=== PATIENT | female | born 1960 | race Two or more races ===

== ENCOUNTER 2023-06-10 09:50 | Emergency (ER) | payer OTHER, SELFPAY ==
[2023-06-10 10:04] VITALS: BP 96/50; PULSE 64; RESP 16; TEMP 37; O2SAT 94; BMI 19.1
--- NOTE | 2023-06-10 10:40 | XR_ITS ---
The [address] [address] Patient Name: HONEY MONTES MRN: [id number] date: 1960 Sex: F Assigned Patient Location: ER Current Patient Location: ER Accession/Order Number: [id number] Exam Date: 06/10/2023 10:50 Report Date: 06/10/2023 11:33 At the request of: SADE ESCOBAR Procedure: XR acute abdomen series EXAM: XR acute abdomen series HISTORY: Abdominal pain. COMPARISON: 04/18/2020. TECHNIQUE: Frontal view of the chest. AP supine and upright views of the abdomen. FINDINGS: Borderline heart size. Diffuse interstitial opacities consistent with pulmonary congestion. Question slight hazy early alveolar opacities as well. No pleural effusion or pneumothorax. No acute bony process. Mild S-shaped thoracolumbar curvature. Nonobstructing bowel gas pattern with mild air fluid distention of the stomach and large bowel suggesting possible mild ileus pattern. No free intraperitoneal air. No portal venous gas. Prior postoperative change of the abdomen. No definite renal stones. XR/XR acute abdomen series IMPRESSION: Cardiomegaly with congestion. Question possible slight early hazy alveolar opacities such as early alveolar edema. No drainable effusions. Question mild ileus pattern of the GI tract but no obstruction or free air. Electronically authenticated by: SAADIA PEGUERO Date: 06/10/2023 11:33
--- NOTE | 2023-06-10 10:40 | ED.ABDPAIN1 ---
HPI - Abdominal Pain General Chief Complaint: Abdominal Pain Stated Complaint: DEHYDRATION/CONFUSION/FELL Time Seen by Provider: 06/10/23 10:39 Source: patient and family Mode of arrival: Wheelchair Limitations: no limitations History of Present Illness HPI narrative: This document has been composed with a new electronic medical record and dragging voice recognition system. This document may not fully inaccurately reflect the entirety of the patient encounter.this patient's here with complaint of abdominal pain. She was seen in a different institution on and was told that she should be admitted. They're waiting for a bed for her to be admitted and she left apparently AGAINST MEDICAL ADVICE. We were waiting get that information. This patient has a very complex medical history she's not exactly sure what type of tumor or cancer she was treated for a believes that it was in her bowel. The surgery was done at the [facility] several years ago. Since , she's been noted take fluids and she's not been vomiting. She does not have a fever. She also noted that she is on tamoxifen for breast cancer but they did not think that the breast-cancer cause the bowels cancer. She is not had any new medications or usage of antibiotics. She was in [place] two days ago she's never been to this institution. She has never been to the [facility] local office. She's not been up to [facility] for over two years for follow-up. She did have lab and CT testing at the other hospital that was noted on the patient's chart that she provided. Related Data Home Medications Medication Instructions Recorded Confirmed alprazolam 1 mg tablet 1 mg PO TID 06/10/23 06/10/23 ciprofloxacin 500 mg PO BID 06/10/23 06/10/23 clopidogrel 75 mg tablet 75 mg PO DAILY 06/10/23 06/10/23 fludrocortisone 0.1 mg tablet 0.1 mg PO DAILY 06/10/23 06/10/23 isosorbide mononitrate 30 mg 30 mg PO DAILY 06/10/23 06/10/23 tablet,extended release 24 hr midodrine 10 mg tablet 10 mg PO TID 06/10/23 06/10/23 morphine 15 mg tablet,extended 15 mg PO Q12H 06/10/23 06/10/23 release nitroglycerin 0.4 mg sublingual 0.4 mg sublingual Q5M PRN chest 06/10/23 06/10/23 tablet pain pantoprazole 40 mg tablet,delayed 40 mg PO DAILY 06/10/23 06/10/23 release potassium chloride 10 mEq 10 meq PO BID 06/10/23 06/10/23 capsule,extended release tamoxifen 20 mg tablet 20 mg PO DAILY 06/10/23 06/10/23 zolpidem 5 mg tablet 5 mg PO DAILY 06/10/23 06/10/23 Allergies Allergy/AdvReac Type Severity Reaction Status Date / Time No Known Drug Allergies Allergy Verified 06/10/23 10:09 [facility] Social History Smoking status: Current every day smoker Exam Narrative Exam Narrative: very pleasant not confused oriented ?3.she is here with her daughter who is also a good historian. She does not appear ill. Blood pressure is noted. Her skin is warm and dry she's not jaundiced she's not clammy or diaphoretic. Cognition is excellent. Chest her lungs are clear with no rales or rhonchi. Heart sounds are normal no S3-S4 or murmur. 12-lead EKG shows sinus rhythm with left anterior fascicular block. Her abdomen is benign with good bowel sounds no guarding rebound rigidity or peritoneal findings. Roblero sign is negative. Negative Uriel sign. Extremities have good peripheral perfusion. No edema/tenderness or evidence of deep vein thrombosis. Neurological cranial nerves are normal she has no focal motor scale deficits or sensory deficits by history. Constitutional Vital Signs, click to edit/add: Last Vital Signs Temp 98.6 F 06/10/23 10:04 Pulse 64 06/10/23 10:04 Resp 16 06/10/23 10:04 BP 96/50 06/10/23 10:04 Pulse Ox 94 L 06/10/23 10:04 O2 Del Method Room Air 06/10/23 10:04 Course Vital Signs Vital signs: Vital Signs Temperature 98.6 F 06/10/23 10:04 Pulse Rate 64 06/10/23 10:04 Respiratory Rate 16 06/10/23 10:04 Blood Pressure 96/50 06/10/23 10:04 Pulse Oximetry 94 L 06/10/23 10:04 Oxygen Delivery Method Room Air 06/10/23 10:04 Temperature 98.6 F 06/10/23 10:04 Pulse Rate 64 06/10/23 10:04 Respiratory Rate 16 06/10/23 10:04 Blood Pressure 96/50 06/10/23 10:04 Pulse Oximetry 94 L 06/10/23 10:04 Oxygen Delivery Method Room Air 06/10/23 10:04 MDM - Abdominal Pain MDM Narrative Medical decision making narrative: patient's CBC is baseline from her lab several days ago the other institution. Her potassium is still low at 3.1. She has slight elevation of her creatinine B line is normal. Lipase is normal. Abdominal series x-ray does not show any evidence of obstructive pattern. This patient has a complex medical history we have little access to her records. She's been seen and had surgery at [facility] I strongly advised follow-up at the local facility here so they can evaluate her and determine need for further imaging to determine if there is any progression of her previously scrod described per medical process. Both her and her daughter are happy to understand that there is a local facility. At this stage of her prescription for additional potassium. Should she develop fever or worsening symptoms she should return do not see an emergency medical condition at this time but she'll need to be followed very closely because of the situation as noted above Lab Data Labs: Lab Results 06/10/23 06/10/23 Range/Units 11:05 11:08 WBC 12.5 H (4.0-11.0) 10^3/uL RBC 4.01 L (4.20-5.40) 10^6/uL Hgb 12.0 (12.0-16.0) g/dL Hct 37.0 (36.0-48.0) % MCV 92.3 (81.0-99.0) fL MCH 29.9 (26.7-34.0) pg MCHC 32.4 (29.9-35.2) g/dL RDW 17.1 H (11.0-15.0) % Plt Count 310 (150-450) 10^3/uL MPV 10.2 (9.5-13.5) fL Neut % (Auto) 72.1 (43.0-75.0) % Lymph % (Auto) 17.3 L (20.5-60.0) % [place] % (Auto) 8.2 (1.7-12.0) % Eos % (Auto) 1.0 (0.9-7.0) % Baso % (Auto) 0.4 (0.2-2.0) % Neut # (Auto) 9.0 H (1.4-6.5) 10^3/uL Lymph # (Auto) 2.2 (1.2-3.8) 10^3/uL [place] # (Auto) 1.0 H (0.3-0.8) 10^3/uL Eos # (Auto) 0.1 (0.0-0.7) 10^3/uL Baso # (Auto) 0.1 (0.0-0.1) 10^3/uL Abs Immat Gran (auto) 0.12 H (0.00-0.03) 10^3/uL Imm/Tot Granulo (auto) 1.0 H (0.0-0.5) % Sodium 138 (136-145) mmol/L Potassium 3.1 L (3.5-5.1) mmol/L Chloride 102 (98-107) mmol/L Carbon Dioxide 26.4 (21.0-32.0) mmol/L Anion Gap 12.7 BUN 8.0 (7.0-18.0) mg/dL Creatinine 1.22 H (0.55-1.02) mg/dL Est GFR ( Amer) 54 L (>=60) Est GFR (Non-Af Amer) 45 L (>=60) BUN/Creatinine Ratio 6.6 Glucose 55 L (74-106) mg/dL Lactate 1.7 (0.4-2.0) mmol/L Calcium 9.0 (8.5-10.1) mg/dL Total Bilirubin 0.6 (0.2-1.0) mg/dL AST 36 (15-37) U/L ALT 14 (14-59) U/L Alkaline Phosphatase 98 (46-116) U/L NT-Pro-B Natriuret Pep 780.0 (<=900.0) pg/mL Total Protein 7.2 (6.4-8.2) g/dL Albumin 2.9 L (3.4-5.0) g/dL Globulin 4.3 g/dL Albumin/Globulin Ratio 0.7 Lipase 37.0 L (73.0-393.0) U/L Discharge Plan Discharge Chief Complaint: Abdominal Pain Clinical Impression: Chronic hypokalemia Patient Disposition: Home, Self-Care Time of Disposition Decision: 12:45 Prescriptions / Home Meds: No Action clopidogrel 75 mg tablet 75 mg PO DAILY fludrocortisone 0.1 mg tablet 0.1 mg PO DAILY isosorbide mononitrate 30 mg tablet extended release 24 hr 30 mg PO DAILY midodrine 10 mg tablet 10 mg PO TID morphine 15 mg tablet extended release 15 mg PO Q12H nitroglycerin 0.4 mg tablet, sublingual 0.4 mg sublingual Q5M PRN (Reason: chest pain) pantoprazole 40 mg tablet,delayed release (DR/EC) 40 mg PO DAILY potassium chloride 10 mEq capsule, extended release 10 meq PO BID zolpidem 5 mg tablet 5 mg PO DAILY alprazolam 1 mg tablet 1 mg PO TID tamoxifen 20 mg tablet 20 mg PO DAILY ciprofloxacin 500 mg PO BID Additional Instructions: finish antibiotic, start potassium supplements, call the local [facility] office Monday to continue your evaluation Stand Alone Forms: Portal Instructions Referrals: IAM OQUENDO [Primary Care Provider] - 1 week
[2023-06-10 11:18] LABS: Basophils Absolute Auto 0.1 10^3/uL (0.0-0.1); Basophils Percent Auto 0.4 % (0.2-2.0); Eosinophils Absolute Auto 0.1 10^3/uL (0.0-0.7); Immature Granulocytes Abs Auto 0.12 10^3/uL (0.00-0.03); Lymphocytes Absolute Auto 2.2 10^3/uL (1.2-3.8); Lymphocytes Percent Auto 17.3 % (20.5-60.0); Mean Corpuscular HGB Conc 32.4 g/dL (29.9-35.2); Mean Corpuscular Hemoglobin 29.9 pg (26.7-34.0); Mean Corpuscular Volume 92.3 fL (81.0-99.0); Mean Platelet Volume 10.2 fL (9.5-13.5); Monocytes Percent Auto 8.2 % (1.7-12.0); Neutrophils Percent Auto 72.1 % (43.0-75.0); Platelet Count 310 10^3/uL (150-450); Red Blood Count 4.01 10^6/uL (4.20-5.40); Red Cell Distribution Width 17.1 % (11.0-15.0); White Blood Count 12.5 10^3/uL (4.0-11.0)
[2023-06-10 11:30] LABS: Alanine Aminotransferase 14 U/L (14-59); Albumin Globulin Ratio 0.7; Albumin Level 2.9 g/dL (3.4-5.0); Alkaline Phosphatase 98 U/L (46-116); Anion Gap 12.7; Aspartate Amino Transferase 36 U/L (15-37); BUN Creatinine Ratio 6.6; Bilirubin Total 0.6 mg/dL (0.2-1.0); Carbon Dioxide 26.4 mmol/L (21.0-32.0); Chloride 102 mmol/L (98-107); Estimated GFR (African America 54 (>=60); Estimated GFR (Non-African Ame 45 (>=60); Globulin 4.3 g/dL; Glucose 55 mg/dL (74-106); Potassium 3.1 mmol/L (3.5-5.1); Sodium 138 mmol/L (136-145); Total Protein 7.2 g/dL (6.4-8.2)
[2023-06-10 11:32] LABS: Lactate/Lactic Acid 1.7 mmol/L (0.4-2.0)
[2023-06-10] MEDS: 0.9 % SODIUM CHLORIDE 1,000 ML 999 ML IV (11:38)
[2023-06-10] MEDS: POTASSIUM CHLORIDE 10 MEQ ER TABLET 20 MEQ PO (12:26)
[2023-06-10 13:19] VITALS: O2SAT 97
[2023-06-10 13:21] VITALS: BP 98/50; PULSE 68; RESP 16; O2SAT 97
== END 2023-06-10 13:26 | disposition home or self-care (01) ==
PROVIDERS: Emergency Provider Emergency Medicine Emergency Medical Services; PCP Family Medicine
DX: E87.6 Hypokalemia (principal); Z85.3 Personal history of malignant neoplasm of breast; Z85.00 Personal history of malignant neoplasm of unspecified digestive organ; Z79.899 Other long term (current) drug therapy; F17.210 Nicotine dependence, cigarettes, uncomplicated
CPT/HCPCS: 36415; 74022; 80053; 83605; 83690; 83880; 85025; 99284

== ENCOUNTER 2023-07-02 10:30 | Observation (INO) | payer OTHER, SELFPAY ==
[2023-07-02] VITALS (38 sets, daily range): BP systolic 110–154; BP diastolic 64–93; PULSE 49–75; RESP 9–27; TEMP 36.7–36.8; O2SAT 84–98; BMI 19.1
--- NOTE | 2023-07-02 11:01 | CT_ITS ---
[address] [address] Patient Name: HONEY MONTES MRN: [id number] date: 1960 Sex: F Assigned Patient Location: ER Current Patient Location: Accession/Order Number: [id number] Exam Date: 07/02/2023 11:30 Report Date: 07/02/2023 12:05 At the request of: ERASMO JEFFERSON Procedure: CT cervical spine wo con EXAM: CT cervical spine wo con HISTORY: fall COMPARISON: None. TECHNIQUE: CT Cervical spine without IV contrast. Coronal and sagittal reformations were performed. Dose reduction techniques were achieved by using automated exposure control and/or adjustment of mA and/or kV according to patient size and/or use of iterative reconstruction technique. FINDINGS: Osseous: The vertebral body heights are maintained. Incomplete fusion of the posterior arch of C1. No fracture. Soft tissues: No focal fluid collection. Atherosclerotic vascular calcification of the carotid arteries. Disc levels: C2-C3: No spinal canal stenosis. Right neural foramen is patent. Mild left facet arthrosis. Mild left foraminal stenosis. C3-C4: Moderate left facet arthrosis. Mild left foraminal stenosis. C4-C5: Small broad-based posterior disc bulge/osteophyte complex. Disc height loss. Mild spinal canal stenosis. Moderate bilateral foraminal stenosis. C5-C6: Small broad-based posterior disc bulge/osteophyte complex. Disc height loss. Mild spinal canal stenosis. Mild left foraminal stenosis. C6-C7: Disc height loss, broad-based posterior disc bulge. Mild spinal canal stenosis. Moderate right foraminal stenosis. C7-T1: No disc protrusion, spinal canal stenosis, or neural foraminal stenosis. Mild left facet arthrosis. CT/CT cervical spine wo con IMPRESSION: 1. No cervical spine fracture or subluxation. 2. Multilevel degenerative changes of the cervical spine as above Electronically authenticated by: MENG MAGALLON Date: 07/02/2023 12:05
--- NOTE | 2023-07-02 11:01 | CT_ITS ---
The [address] [address] Patient Name: HONEY MONTES MRN: [id number] date: 1960 Sex: F Assigned Patient Location: ER Current Patient Location: ER Accession/Order Number: [id number] Exam Date: 07/02/2023 11:30 Report Date: 07/02/2023 12:01 At the request of: ERASMO JEFFERSON Procedure: CT stroke head/brain wo con EXAM: CT stroke head/brain wo con HISTORY: fall, altered mentation COMPARISON: None. TECHNIQUE: Noncontrast CT was obtained through the head. Dose reduction techniques were achieved by using automated exposure control and/or adjustment of mA and/or kV according to patient size and/or use of iterative reconstruction technique. FINDINGS: The ventricles, sulci, and remaining CSF containing spaces maintain age-appropriate volume and symmetry. No herniation or hydrocephalus. The webb matter/white matter differentiation is maintained throughout. No CT evidence of contemporary infarction. No acute intracranial hemorrhage or parenchymal mass. The calvarium and skull base are intact. The pneumatized portions of the skull are clear. CT/CT stroke head/brain wo con IMPRESSION: No acute intracranial abnormality. MRI may be helpful in further evaluation. Electronically authenticated by: MENG MAGALLON Date: 07/02/2023 12:01
--- NOTE | 2023-07-02 11:02 | ECG_ITS ---
The [facility] Test Date: 2023-07-02 Pat Name: HONEY MONTES Department: Room: - Gender: Female [employer]: : 1960 Requested By: Andrea Ardon Order Number: [id number] Reading MD: JOSHUA FLORENCE Measurements Intervals [place] Rate: 66 P: 63 [place]: 166 QRS: -56 QRSD: 90 T: 48 QT: 446 QTc: 459 Interpretive Statements 1100 Sinus rhythm 2630 Left anterior fascicular block 8003 Consistent with pulmonary disease 8304 Long QTc interval 9150 abnormal ECG No previous ECG available for comparison Electronically Signed On 07-03-2023 13:09:41 EDT by JOSHUA FLORENCE
--- NOTE | 2023-07-02 11:02 | XR_ITS ---
The [address] [address] Patient Name: HONEY MONTES MRN: [id number] date: 1960 Sex: F Assigned Patient Location: ER Current Patient Location: ER Accession/Order Number: [id number] Exam Date: 07/02/2023 11:30 Report Date: 07/02/2023 12:10 At the request of: ERASMO JEFFERSON Procedure: XR chest 1V PROCEDURE: XR chest 1V DATE: 07/02/2023 10:30 AM CDT COMPARISONS: None. CLINICAL INDICATION: 63 years Female fall, altered mentation FINDINGS: The cardiomediastinal silhouette and pulmonary vasculature are within normal limits. The lungs are clear. There is no evidence of pleural effusion or pneumothorax. XR/XR chest 1V IMPRESSION: Chest radiograph is within normal limits. Electronically authenticated by: KHUSHBOO ROBERTSON Date: 07/02/2023 12:10
[2023-07-02 11:31] LABS: Basophils Percent Auto 0.3 % (0.2-2.0); Eosinophils Absolute Auto 0.3 10^3/uL (0.0-0.7); Eosinophils Percent Auto 2.1 % (0.9-7.0); Hematocrit 37.1 % (36.0-48.0); Hemoglobin 11.6 g/dL (12.0-16.0); Immature Granulocytes Abs Auto 0.05 10^3/uL (0.00-0.03); Immature Granulocytes Pct Auto 0.4 % (0.0-0.5); Lymphocytes Absolute Auto 2.9 10^3/uL (1.2-3.8); Mean Corpuscular HGB Conc 31.3 g/dL (29.9-35.2); Mean Corpuscular Hemoglobin 29.7 pg (26.7-34.0); Mean Corpuscular Volume 95.1 fL (81.0-99.0); Mean Platelet Volume 10.1 fL (9.5-13.5); Monocytes Absolute Auto 0.8 10^3/uL (0.3-0.8); Monocytes Percent Auto 5.9 % (1.7-12.0); Neutrophils Absolute Auto 9.2 10^3/uL (1.4-6.5); Neutrophils Percent Auto 69.3 % (43.0-75.0); Platelet Count 285 10^3/uL (150-450); Red Cell Distribution Width 16.7 % (11.0-15.0); White Blood Count 13.3 10^3/uL (4.0-11.0)
--- NOTE | 2023-07-02 11:34 | ED_ITS ---
HPI - General Adult General Chief complaint: Weakness Stated complaint: SHAKY/WEAK/FALLEN 2X/CONFUSION Time Seen by Provider: 07/02/23 10:42 Source: family Mode of arrival: Wheelchair Limitations: altered mental status History of Present Illness HPI narrative: Patient was staying in the daughter's camper last night and got up to use the bathroom. She got dizzy and fell in the hallway between the kitchen and the b athroom. Unclear if she hit her head but apparently did not lose consciousness. The daughter brought her home and the patient apparently fell again - once again becoming dizzy as she was attempting to walk to the bathroom. Now she is confused - giving incorrect and inappropriate responses and having difficulty performing basic tasks - example putting a cigarette to her lips. She takes aspirin and Plavix - she has afib and CAD with multiple cardiac stents. She has no complaints. She sustained an injury - skin tear - to the right upper extremity. She denied any other injuries. Related Data Home Medications Medication Instructions Recorded Confirmed alprazolam 1 mg tablet 1 mg PO TID PRN sleep 06/10/23 07/02/23 ciprofloxacin 500 mg PO BID 06/10/23 06/10/23 clopidogrel 75 mg tablet 75 mg PO DAILY 06/10/23 07/02/23 fludrocortisone 0.1 mg tablet 0.1 mg PO DAILY 06/10/23 06/10/23 isosorbide mononitrate 30 mg 30 mg PO DAILY 06/10/23 07/02/23 tablet,extended release 24 hr midodrine 10 mg tablet 10 mg PO TID 06/10/23 07/02/23 morphine 15 mg tablet,extended 15 mg PO Q12H 06/10/23 06/10/23 release nitroglycerin 0.4 mg sublingual 0.4 mg sublingual Q5M PRN chest 06/10/23 06/10/23 tablet pain pantoprazole 40 mg tablet,delayed 40 mg PO DAILY 06/10/23 07/02/23 release potassium chloride 10 mEq 10 meq PO BID 06/10/23 07/02/23 capsule,extended release tamoxifen 20 mg tablet 20 mg PO DAILY 06/10/23 07/02/23 zolpidem 5 mg tablet 5 mg PO DAILY 06/10/23 07/02/23 oxycodone-acetaminophen 7.5 mg-325 tab 07/02/23 mg tablet Allergies Allergy/AdvReac Type Severity Reaction Status Date / Time No Known Drug Allergies Allergy Verified 06/10/23 10:09 [facility] Social History Smoking status: Current every day smoker Exam Narrative Exam Narrative: Nurses note and vital signs reviewed and patient is not hypoxic. afebrile General: The patient appears well and in no apparent distress. Patient is resting comfortably on cart. GCS = 13. Skin: Warm, dry, no pallor noted. Head: Normocephalic, atraumatic Neck: Supple, trachea mid-line. Full ROM and no cervical spinal tenderness. Eyes: PERRLA, EOMI ENT: TMs clear, no hemotympanum detected, no blood in posterior oropharynx Cardiovascular: Regular Rate and Rhythm Respiratory: Patient is in no distress, no accessory muscle use, lungs are clear to auscultation, no wheezing, rales or rhonchi Chest Wall: no tenderness, no flail chest, contusion, abrasion, or signs of trauma. Back: No thoracic or lumbar tenderness to palpation. Negative straight leg raise bilaterally. Musculoskeletal: skin tear right upper extremity. No sign of long bone fracture, no tenderness, no swelling. Pulses at femoral, DP, PT, and popliteal were 2+ bilaterally. Moves all four extremities in all modalities with 5/5 strength. GI: Normal bowel sounds, no tenderness to palpation, no masses appreciated. No rebound, guarding, or rigidity noted. Neurological: awake and alert but confused. normal equal liquefaction and regasification helper strength, normal finger to nose, normal speech, normal coordination, normal motor, normal sensory. Psychiatric: Cooperative Constitutional Vital Signs, click to edit/add: Last Vital Signs Temp 98.3 F 07/02/23 10:37 Pulse 66 07/02/23 10:38 Resp 14 07/02/23 10:38 BP 131/64 07/02/23 10:38 Pulse Ox 96 07/02/23 10:38 O2 Del Method Room Air 07/02/23 10:38 Course Vital Signs Vital signs: Vital Signs Temperature 98.3 F 07/02/23 10:37 Temperature 98.3 F 07/02/23 10:37 Pulse Rate 66 07/02/23 10:38 Respiratory Rate 14 07/02/23 10:38 Blood Pressure 131/64 07/02/23 10:38 Pulse Oximetry 96 07/02/23 10:38 Oxygen Delivery Method Room Air 07/02/23 10:38 Medical Decision Making MDM Narrative Medical decision making narrative: she was ordered to be sent for stat noncontrast CT scan of the brain per stroke protocol. CT scan cervical spine was also obtained due to her fall and potential head injury. Patient was placed on monitoring tech and EKG obtained. Blood drawn and sent for evaluation. Urine ordered to be sent for testing. X- ray of the chest also ordered. Patient found to be hypoglycemic and was given IV Dextrose and apple juice along with crackers. repeat glucose 137. WBC slightly elevated at 13k. Potassium slightly decreased at 3.4. Patient has normal renal function, negative LFTs and negative troponin and BNP. On recheck at 1320, the patient is still a little confused. Her CT scans and blood tests did not show anything worrisome and her glucose - while low - has now normalized and she is still not mentating as expected. Call placed to the medical reception hospital to discuss admission. Dr Azar and I discussed the patient's case and we will admit the patient on observation basis, medsurg, telemetry. He asked that we add on a urine tox screen. Lab Data Lab results reviewed: Yes I reviewed the patient's lab results Labs: Lab Results 07/02/23 07/02/23 07/02/23 Range/Units 11:10 11:42 12:22 WBC 13.3 H (4.0-11.0) 10^3/uL RBC 3.90 L (4.20-5.40) 10^6/uL Hgb 11.6 L (12.0-16.0) g/dL Hct 37.1 (36.0-48.0) % MCV 95.1 (81.0-99.0) fL MCH 29.7 (26.7-34.0) pg MCHC 31.3 (29.9-35.2) g/dL RDW 16.7 H (11.0-15.0) % Plt Count 285 (150-450) 10^3/uL MPV 10.1 (9.5-13.5) fL Neut % (Auto) 69.3 (43.0-75.0) % Lymph % (Auto) 22.0 (20.5-60.0) % [place] % (Auto) 5.9 (1.7-12.0) % Eos % (Auto) 2.1 (0.9-7.0) % Baso % (Auto) 0.3 (0.2-2.0) % Neut # (Auto) 9.2 H (1.4-6.5) 10^3/uL Lymph # (Auto) 2.9 (1.2-3.8) 10^3/uL [place] # (Auto) 0.8 (0.3-0.8) 10^3/uL Eos # (Auto) 0.3 (0.0-0.7) 10^3/uL Baso # (Auto) 0.0 (0.0-0.1) 10^3/uL Abs Immat Gran (auto) 0.05 H (0.00-0.03) 10^3/uL Imm/Tot Granulo (auto) 0.4 (0.0-0.5) % Sodium 142 (136-145) mmol/L Potassium 3.4 L (3.5-5.1) mmol/L Chloride 102 (98-107) mmol/L Carbon Dioxide 28.7 (21.0-32.0) mmol/L Anion Gap 14.7 BUN 16.0 (7.0-18.0) mg/dL Creatinine 0.88 (0.55-1.02) mg/dL Est GFR ( Amer) >60 (>=60) Est GFR (Non-Af Amer) >60 (>=60) BUN/Creatinine Ratio 18.2 Glucose 57 L (74-106) mg/dL Calcium 9.3 (8.5-10.1) mg/dL Total Bilirubin 0.2 (0.2-1.0) mg/dL AST 30 (15-37) U/L ALT 33 (14-59) U/L Alkaline Phosphatase 98 (46-116) U/L Troponin I High Sens 6.0 (4.0-51.3) pg/mL NT-Pro-B Natriuret Pep 374.0 (<=900.0) pg/mL Total Protein 7.2 (6.4-8.2) g/dL Albumin 3.4 (3.4-5.0) g/dL Globulin 3.8 g/dL Albumin/Globulin Ratio 0.9 Urine Color Lt. yellow (YELLOW) Urine Clarity Clear (CLEAR) Urine pH 6.0 (5.0-9.0) Ur Specific [place] <=1.005 A (1.005-1.025) Urine Protein Negative (NEG/TRACE) mg/dL Urine Glucose (UA) 100 A (NEGATIVE) mg/dL Urine Ketones Negative (NEGATIVE) mg/dL Urine Occult Blood Negative (NEGATIVE) Urine Nitrite Negative (NEGATIVE) Urine Bilirubin Negative (NEGATIVE) Urine Urobilinogen 0.2 (0.2-1.0) EU/dL Ur Leukocyte Esterase Negative (NEGATIVE) POC Glucose 63 L (74-106) mg/dL 07/02/23 Range/Units 13:14 WBC (4.0-11.0) 10^3/uL RBC (4.20-5.40) 10^6/uL Hgb (12.0-16.0) g/dL Hct (36.0-48.0) % MCV (81.0-99.0) fL MCH (26.7-34.0) pg MCHC (29.9-35.2) g/dL RDW (11.0-15.0) % Plt Count (150-450) 10^3/uL MPV (9.5-13.5) fL Neut % (Auto) (43.0-75.0) % Lymph % (Auto) (20.5-60.0) % [place] % (Auto) (1.7-12.0) % Eos % (Auto) (0.9-7.0) % Baso % (Auto) (0.2-2.0) % Neut # (Auto) (1.4-6.5) 10^3/uL Lymph # (Auto) (1.2-3.8) 10^3/uL [place] # (Auto) (0.3-0.8) 10^3/uL Eos # (Auto) (0.0-0.7) 10^3/uL Baso # (Auto) (0.0-0.1) 10^3/uL Abs Immat Gran (auto) (0.00-0.03) 10^3/uL Imm/Tot Granulo (auto) (0.0-0.5) % Sodium (136-145) mmol/L Potassium (3.5-5.1) mmol/L Chloride (98-107) mmol/L Carbon Dioxide (21.0-32.0) mmol/L Anion Gap BUN (7.0-18.0) mg/dL Creatinine (0.55-1.02) mg/dL Est GFR ( Amer) (>=60) Est GFR (Non-Af Amer) (>=60) BUN/Creatinine Ratio Glucose (74-106) mg/dL Calcium (8.5-10.1) mg/dL Total Bilirubin (0.2-1.0) mg/dL AST (15-37) U/L ALT (14-59) U/L Alkaline Phosphatase (46-116) U/L Troponin I High Sens (4.0-51.3) pg/mL NT-Pro-B Natriuret Pep (<=900.0) pg/mL Total Protein (6.4-8.2) g/dL Albumin (3.4-5.0) g/dL Globulin g/dL Albumin/Globulin Ratio Urine Color (YELLOW) Urine Clarity (CLEAR) Urine pH (5.0-9.0) Ur Specific [place] (1.005-1.025) Urine Protein (NEG/TRACE) mg/dL Urine Glucose (UA) (NEGATIVE) mg/dL Urine Ketones (NEGATIVE) mg/dL Urine Occult Blood (NEGATIVE) Urine Nitrite (NEGATIVE) Urine Bilirubin (NEGATIVE) Urine Urobilinogen (0.2-1.0) EU/dL Ur Leukocyte Esterase (NEGATIVE) POC Glucose 137 H (74-106) mg/dL Imaging Data CT scan - head: Attestation: I have reviewed the pertinent imaging results. Radiologist's impression: Patient Name: HONEY MONTES MRN: [id number] date: 1960 Sex: F Assigned Patient Location: ER Current Patient Location: ER Accession/Order Number: [id number] Exam Date: 07/02/2023 11:30 Report Date: 07/02/2023 12:01 At the request of: ERASMO JEFFERSON Procedure: CT stroke head/brain wo con EXAM: CT stroke head/brain wo con HISTORY: fall, altered mentation COMPARISON: None. TECHNIQUE: Noncontrast CT was obtained through the head. Dose reduction techniques were achieved by using automated exposure control and/or adjustment of mA and/or kV according to patient size and/or use of iterative reconstruction technique. FINDINGS: The ventricles, sulci, and remaining CSF containing spaces maintain age-appropriate volume and symmetry. No herniation or hydrocephalus. The webb matter/white matter differentiation is maintained throughout. No CT evidence of contemporary infarction. No acute intracranial hemorrhage or parenchymal mass. The calvarium and skull base are intact. The pneumatized portions of the skull are clear. IMPRESSION: No acute intracranial abnormality. MRI may be helpful in further evaluation. Electronically authenticated by: MENG MAGALLON Date: 07/02/2023 12:01 ct cspine: Radiologist's impression: Patient Name: HONEY MONTES MRN: [id number] date: 1960 Sex: F Assigned Patient Location: ER Current Patient Location: Accession/Order Number: [id number] Exam Date: 07/02/2023 11:30 Report Date: 07/02/2023 12:05 At the request of: ERASMO JEFFERSON Procedure: CT cervical spine wo con EXAM: CT cervical spine wo con HISTORY: fall COMPARISON: None. TECHNIQUE: CT Cervical spine without IV contrast. Coronal and sagittal reformations were performed. Dose reduction techniques were achieved by using automated exposure control and/or adjustment of mA and/or kV according to patient size and/or use of iterative reconstruction technique. FINDINGS: Osseous: The vertebral body heights are maintained. Incomplete fusion of the posterior arch of C1. No fracture. Soft tissues: No focal fluid collection. Atherosclerotic vascular calcification of the carotid arteries. Disc levels: C2-C3: No spinal canal stenosis. Right neural foramen is patent. Mild left facet arthrosis. Mild left foraminal stenosis. C3-C4: Moderate left facet arthrosis. Mild left foraminal stenosis. C4-C5: Small broad-based posterior disc bulge/osteophyte complex. Disc height loss. Mild spinal canal stenosis. Moderate bilateral foraminal stenosis. C5-C6: Small broad-based posterior disc bulge/osteophyte complex. Disc height loss. Mild spinal canal stenosis. Mild left foraminal stenosis. C6-C7: Disc height loss, broad-based posterior disc bulge. Mild spinal canal stenosis. Moderate right foraminal stenosis. C7-T1: No disc protrusion, spinal canal stenosis, or neural foraminal stenosis. Mild left facet arthrosis. IMPRESSION: 1. No cervical spine fracture or subluxation. 2. Multilevel degenerative changes of the cervical spine as above Electronically authenticated by: MENG MAGALLON Date: 07/02/2023 12:05 Chest x-ray: Radiologist's impression: Patient Name: HONEY MONTES MRN: [id number] date: 1960 Sex: F Assigned Patient Location: ER Current Patient Location: ER Accession/Order Number: [id number] Exam Date: 07/02/2023 11:30 Report Date: 07/02/2023 12:10 At the request of: ERASMO JEFFERSON Procedure: XR chest 1V PROCEDURE: XR chest 1V DATE: 07/02/2023 10:30 AM CDT COMPARISONS: None. CLINICAL INDICATION: 63 years Female fall, altered mentation FINDINGS: The cardiomediastinal silhouette and pulmonary vasculature are within normal limits. The lungs are clear. There is no evidence of pleural effusion or pneumothorax. IMPRESSION: Chest radiograph is within normal limits. Electronically authenticated by: KHUSHBOO ROBERTSON Date: 07/02/2023 12:10 ECG Data Attestation: ?I have reviewed the pertinent ECG results. Interpretation: EKG interpretation: Emergency Department physician interpretation. Normal sinus rhythm at 66bpm. LAFB. pulmonary disease pattern. Long QTc. No ST segment elevation or depression. Discharge Plan Discharge Chief Complaint: Weakness Clinical Impression: Hypoglycemia, Frequent falls, Acute confusion Patient Disposition: Admitted as Observation Time of Disposition Decision: 13:26
[2023-07-02 11:43] LABS: Glucometer 63 mg/dL (74-106)
[2023-07-02] MEDS: 0.9 % SODIUM CHLORIDE 1,000 ML 999 ML IV (11:47)
[2023-07-02 12:04] LABS: Alanine Aminotransferase 33 U/L (14-59); Albumin Globulin Ratio 0.9; Albumin Level 3.4 g/dL (3.4-5.0); Alkaline Phosphatase 98 U/L (46-116); Anion Gap 14.7; Aspartate Amino Transferase 30 U/L (15-37); BUN Creatinine Ratio 18.2; Bilirubin Total 0.2 mg/dL (0.2-1.0); Calcium 9.3 mg/dL (8.5-10.1); Carbon Dioxide 28.7 mmol/L (21.0-32.0); Chloride 102 mmol/L (98-107); Estimated GFR (African America >60 (>=60); Estimated GFR (Non-African Ame >60 (>=60); Globulin 3.8 g/dL; Glucose 57 mg/dL (74-106); Potassium 3.4 mmol/L (3.5-5.1); Sodium 142 mmol/L (136-145); Total Protein 7.2 g/dL (6.4-8.2)
[2023-07-02] MEDS: DEXTROSE 50 %-WATER 25 GM/50 ML SYRINGE IV (12:06)
[2023-07-02 12:36] LABS: Bilirubin Urine NEGATIVE (NEGATIVE); Blood Urine NEGATIVE (NEGATIVE); Clarity Urine CLEAR (CLEAR); Color Urine LT. YELLOW (YELLOW); Glucose Urine UA 100 mg/dL (NEGATIVE); Ketones Urine NEGATIVE (NEGATIVE); Leukocyte Esterase Urine NEGATIVE (NEGATIVE); Nitrite Urine NEGATIVE (NEGATIVE); Protein Urine NEGATIVE (NEG/TRACE); Specific Gravity Urine <=1.005 (1.005-1.025); Urobilinogen Urine 0.2 EU/dL (0.2-1.0)
[2023-07-02 12:37] LABS: Urine Microscopic Indicated NO
[2023-07-02 13:17] LABS: Glucometer 137 mg/dL (74-106)
--- NOTE | 2023-07-02 14:33 | MR_ITS ---
The [address] [address] Patient Name: HONEY MONTES MRN: [id number] date: 1960 Sex: F Assigned Patient Location: MS Current Patient Location: Accession/Order Number: [id number] Exam Date: 07/02/2023 07:38 Report Date: 07/03/2023 16:25 At the request of: SHAIKH YINKA Procedure: MR head/brain wo con EXAM: MR head/brain WO contrast. HISTORY: Altered mental status. COMPARISON: Head CT 07/02/2023. TECHNIQUE: Multiplanar, multisequence MR imaging of the head was performed without intravenous contrast. FINDINGS: No restricted diffusion. No acute hemorrhage, mass effect, midline shift or extra-axial fluid collection. No ventriculomegaly. Expected flow voids are noted within the intracranial internal carotid, vertebral and basilar arteries. The cerebellopontine angles and internal auditory canals are unremarkable. The pituitary gland and midline structures are unremarkable. Bone marrow signal is within normal limits. The orbits and globes are unremarkable. Expected signal voids are seen within the paranasal sinuses and mastoid air cells. There is minimal diffuse cerebral atrophy with concordant prominence of the ventricles. Minimal increased FLAIR signal is seen within the periventricular white matter. Evaluation is mildly limited due to motion and artifact. MR/MR head/brain wo con IMPRESSION: 1. No acute infarct, mass effect or hemorrhage. 2. Minimal atrophy and chronic small vessel ischemic changes of the supratentorial white matter. Electronically authenticated by: RUBEN LARES Date: 07/03/2023 16:25
[2023-07-02 15:51] LABS: Ammonia 30 umol/L (11-32)
[2023-07-02] MEDS: ENOXAPARIN SODIUM 40 MG/0.4 ML SYRINGE SUBQ (16:12)
[2023-07-02 20:16] LABS: Amphetamine Screen Urine NEGATIVE (NEGATIVE); Barbiturates Screen Urine NEGATIVE (NEGATIVE); Benzodiazepines Screen Urine POSITIVE (NEGATIVE); Buprenorphine Screen Urine NEGATIVE (NEGATIVE); Cannabinoid Screen Urine POSITIVE (NEGATIVE); Cocaine Screen Urine NEGATIVE (NEGATIVE); Methadone Screen Urine NEGATIVE (NEGATIVE); Methamphetamines Screen Urine NEGATIVE (NEGATIVE); Opiate Screen Urine POSITIVE (NEGATIVE); Oxycodone Screen Urine POSITIVE (NEGATIVE); Phencyclidine Screen Urine NEGATIVE (NEGATIVE); Tricyclic Antidepressant Urine NEGATIVE (NEGATIVE)
[2023-07-02] MEDS: ZOLPIDEM TARTRATE 5 MG TABLET PO (21:30)
[2023-07-02] MEDS: ALPRAZOLAM 0.5 MG TABLET PO (21:30)
[2023-07-03] VITALS (12 sets, daily range): BP systolic 105–130; BP diastolic 62–72; PULSE 56–77; RESP 16–20; TEMP 36.7–36.9; O2SAT 93–97
[2023-07-03 05:00] LABS: Basophils Absolute Auto 0.1 10^3/uL (0.0-0.1); Basophils Percent Auto 0.4 % (0.2-2.0); Eosinophils Absolute Auto 0.3 10^3/uL (0.0-0.7); Eosinophils Percent Auto 2.1 % (0.9-7.0); Hematocrit 37.1 % (36.0-48.0); Immature Granulocytes Abs Auto 0.06 10^3/uL (0.00-0.03); Immature Granulocytes Pct Auto 0.5 % (0.0-0.5); Lymphocytes Absolute Auto 2.2 10^3/uL (1.2-3.8); Lymphocytes Percent Auto 18.7 % (20.5-60.0); Mean Corpuscular HGB Conc 32.3 g/dL (29.9-35.2); Mean Corpuscular Hemoglobin 29.9 pg (26.7-34.0); Mean Corpuscular Volume 92.5 fL (81.0-99.0); Mean Platelet Volume 10.2 fL (9.5-13.5); Monocytes Absolute Auto 0.7 10^3/uL (0.3-0.8); Monocytes Percent Auto 5.8 % (1.7-12.0); Neutrophils Absolute Auto 8.7 10^3/uL (1.4-6.5); Neutrophils Percent Auto 72.5 % (43.0-75.0); Platelet Count 275 10^3/uL (150-450); Red Blood Count 4.01 10^6/uL (4.20-5.40); Red Cell Distribution Width 16.4 % (11.0-15.0)
[2023-07-03 05:16] LABS: Alanine Aminotransferase 19 U/L (14-59); Albumin Globulin Ratio 0.8; Alkaline Phosphatase 88 U/L (46-116); Anion Gap 12.3; Aspartate Amino Transferase 23 U/L (15-37); BUN Creatinine Ratio 11.2; Bilirubin Total 0.4 mg/dL (0.2-1.0); Calcium 8.9 mg/dL (8.5-10.1); Carbon Dioxide 28.7 mmol/L (21.0-32.0); Chloride 104 mmol/L (98-107); Estimated GFR (African America >60 (>=60); Estimated GFR (Non-African Ame >60 (>=60); Globulin 3.6 g/dL; Glucose 89 mg/dL (74-106); Sodium 142 mmol/L (136-145); Total Protein 6.6 g/dL (6.4-8.2)
--- NOTE | 2023-07-03 07:55 | P.HP_ITS ---
H&P: HPI History of Present Illness Chief complaint: Confusion/weakness Narrative: HPI and Hospital Course: 63 y o female was in her usual state of health until yesterday when she started to experience weakness along with confusion. She had 2 falls at home as a result because of unsteady gait and generalized weakness. She experiences similar episodes every now and then and no specific clinical diagnoses or explanation has been sought as per patient. She also has hx of recurrent hypomagnesemia and hypokalemia and requires IV infusion every 1-2 week as outpatient. For this also, there is no clinica diagnosis or explanation. She also has chronic orthostatic hypotension and currently uses midodrine and fludrocortisone but still experiences orthostasis with blood pressure very routinely in low 70s. When she arrived last night - no sig abnormality was noted on her w/u that could explain her persistent confusion. Her blood glucose was slightly low on arrival but her confusion persistent after glucose correction. No evidence of infectious etiology discovered on blood work. CT head - no sig intracranial pathology. For her persistent encephalopathy/delirium - an MRI was ordered given her hx of breast cancer/neuroendocrine tumor but no sig abnormality was found on MRI brain. She is back to her baseline and currently has no active complaints to offer. In view of chronic orthostatic hypotension, recurrent hyponatremia, hypokalemia and hypomagnesemia, I suspect she might have underlying adrenal insufficiency. This was d/w patient and she will f/u with PCP about further testing or appropriate referrals for her. Admission Diagnosis Metabolic encephalopathy Frequent falls Chronic orthostatic hypotension Hypokalemia CAD H/o neuroendocrine tumor H/o breast cancer HLD Depression Discharge diagnosis as above Discharge status stable Review of Systems ROS Status of ROS 10 or more systems reviewed and unremarkable except as noted in history and below [facility] Medical History (Updated 07/03/23 @ 11:16 by Shaikh Doe MD) Surgical History (Updated 07/02/23 @ 15:12 by Umm Mercado LPN) Family History (Updated 07/02/23 @ 15:09 by Umm Mercado LPN) Mother Family history of COPD (chronic obstructive pulmonary disease) Family history of cancer Family history of diabetes mellitus Grandmother Family history of cancer Social History (Updated 07/02/23 @ 15:10 by Umm Mercado LPN) Within the past year, how often did you have a drink containing alcohol: never Within the past year, how many standard drinks containing alcohol did you have on a typical day: 1 or 2 Within the past year, how often did you have six or more drinks on one occasion: never Total score: 0 Score interpretation: A score less than 3 is consistent with normal alcohol consumption. Smoking status: Current every day smoker Second hand tobacco smoke exposure: Yes Non-prescribed substance use: denies use Previous occupational history: retired Known occupational exposures/hazards: No Highest level of school completed/degree received: high school graduate Do you want help with school or training: No Are you now , , , , never or living with a partner: In a typical week, how many times do you talk on the telephone with family, friends, or neighbors: 3 or more times per week How often do you get together with friends or relatives: 3 or more times per week How often do you attend anabaptist or christian services: never Do you belong to any clubs or organizations such as anabaptist groups unions, [employer] or athletic groups, or school groups: no Total score: 2 Score interpretation: A score of greater than or equal to 2 indicates the lowest level of social isolation. Little interest or pleasure in doing things: not at all Feeling down, depressed, or hopeless: not at all Feel stressed/tense/nervous/anxious/difficulty sleeping: not at all Due to disability, difficulty making decisions: No Do you think of yourself as: straight/heterosexual Gender Identity: female Meds Home Medications and Allergies Home Medications Medication Instructions Recorded Confirmed Type alprazolam 1 mg tablet 1 mg PO TID PRN sleep 06/10/23 07/02/23 History clopidogrel 75 mg tablet 75 mg PO DAILY 06/10/23 07/02/23 History midodrine 10 mg tablet 10 mg PO TID 06/10/23 07/02/23 History nitroglycerin 0.4 mg sublingual 0.4 mg sublingual Q5M PRN chest 06/10/23 07/02/23 History tablet pain zolpidem 5 mg tablet 5 mg PO DAILY 06/10/23 07/02/23 History aspirin 81 mg capsule 81 mg PO DAILY 07/03/23 07/03/23 History atorvastatin 80 mg tablet 80 mg PO DAILY 07/03/23 07/03/23 History citalopram 40 mg tablet 40 mg PO DAILY 07/03/23 07/03/23 History fludrocortisone 0.1 mg tablet 0.1 mg PO DAILY 07/03/23 07/03/23 History gabapentin 600 mg tablet 600 mg PO BID 07/03/23 07/03/23 History isosorbide mononitrate 30 mg 30 mg PO DAILY 07/03/23 07/03/23 History tablet,extended release 24 hr metformin 500 mg tablet 500 mg PO BID 07/03/23 07/03/23 History morphine 15 mg tablet,extended 15 mg PO Q12H pain 07/03/23 07/03/23 History release oxycodone-acetaminophen 7.5 mg-325 1 tab PO Q8H PRN pain 07/03/23 07/03/23 History mg tablet pantoprazole 40 mg tablet,delayed 40 mg PO DAILY 07/03/23 07/03/23 History release potassium chloride 10 mEq 10 meq PO BID 07/03/23 07/03/23 History capsule,extended release tamoxifen 10 mg tablet 10 mg PO DAILY 07/03/23 07/03/23 History Allergies Allergy/AdvReac Type Severity Reaction Status Date / Time No Known Drug Allergies Allergy Verified 06/10/23 10:09 Exam Constitutional Vital Signs, click to edit/add: Last Vital Signs Temp 98.1 F 07/03/23 05:55 Pulse 71 07/03/23 06:00 Resp 20 07/03/23 05:55 BP 118/65 07/03/23 05:55 Pulse Ox 97 07/03/23 05:55 O2 Del Method Room Air 07/03/23 05:55 Documenting provider has reviewed patient's vital signs: yes Common normals: no apparent distress and oriented x3 General appearance: cooperative Nutritional appearance: thin HENMT Common normals: normocephalic and head/scalp atraumatic Head and scalp: normocephalic and atraumatic Eye Common normals: conjunctivae normal and no scleral icterus Conjunctiva: conjunctiva(e) normal Respiratory Common normals: normal respiratory effort and clear to auscultation bilaterally Effort & inspection: able to speak in complete sentences Auscultation: clear to auscultation bilaterally Cardio Common normals: regular rate, S1 normal heart sound and S2 normal heart sound Rate: regular rate Heart sounds: S1 normal and S2 normal GI Common normals: Normal to inspection, nondistended, normoactive bowel sounds present (midline surgical scar from previous laparotomy), soft to palpation, non-tender and no hepatosplenomegaly Palpation: soft and no hepatosplenomegaly Extremity Common normals: no clubbing, cyanosis or edema Neuro Common normals: oriented x3, moves all extremities and no focal motor deficits Psych Common normals: mental status grossly normal, denies hallucinations, denies homicidal ideation and denies suicidal ideation Results Labs Labs: Short CBC 07/02/23 07/03/23 Range/Units 11:10 04:39 WBC 13.3 H 12.0 H (4.0-11.0) 10^3/uL Hgb 11.6 L 12.0 (12.0-16.0) g/dL Hct 37.1 37.1 (36.0-48.0) % Plt Count 285 275 (150-450) 10^3/uL BMP 07/02/23 07/03/23 11:10 04:39 Sodium 142 142 Potassium 3.4 L 3.0 L Chloride 102 104 Carbon Dioxide 28.7 28.7 BUN 16.0 9.0 Creatinine 0.88 0.80 Glucose 57 L 89 Calcium 9.3 8.9 Liver Function 07/02/23 07/03/23 Range/Units 11:10 04:39 Total Bilirubin 0.2 0.4 (0.2-1.0) mg/dL AST 30 23 (15-37) U/L ALT 33 19 (14-59) U/L Alkaline Phosphatase 98 88 (46-116) U/L Albumin 3.4 3.0 L (3.4-5.0) g/dL Urine 07/02/23 Range/Units 12:22 Urine Color Lt. yellow (YELLOW) Urine Clarity Clear (CLEAR) Urine pH 6.0 (5.0-9.0) Ur Specific [place] <=1.005 A (1.005-1.025) Urine Protein Negative (NEG/TRACE) mg/dL Urine Glucose (UA) 100 A (NEGATIVE) mg/dL Assessment and Plan Assessment and Plan (1) Metabolic encephalopathy: Assessment and Plan: Back to baseline. Unclear etiology. CT head/MRI brain negative for acute intracr anial pathology. Will need outpatient f/u Neurology. UDS positive for opioids, benzodiazepines - prescribed to her. (2) Hypokalemia: Assessment and Plan: Recurrent hypokalemia requiring IV infusion as outpatient also. D/w patient that she should consider seeing Nephrology as outpatient. Verbalized understanding and will talk to her PCP when she follows up with her this . (3) Leukocytosis: Assessment and Plan: Likely reactive. No source of infection identified. Monitor. (4) Hypoglycemia: Assessment and Plan: Low blood glucose on arrival - but remained confused after correction. FSBS stable and at goal. (5) Frequent falls: Assessment and Plan: P/w weakness, unsteady gait, frequent falls. Now back to her baseline. (6) Afib: Assessment and Plan: In NSR. Not on AC. and unsure why that is. Patient follows up with [facility] cardiology. (7) Chronic orthostatic hypotension: Assessment and Plan: On midodrine and fludrocortisone. BP stable in the hospital. C/w same (8) Depression: Assessment and Plan: Stable. c/w celexa (9) HLD (hyperlipidemia): Assessment and Plan: C/w statin
[2023-07-03] MEDS: CLOPIDOGREL BISULFATE 75 MG TABLET PO (09:06)
--- NOTE | 2023-07-03 10:27 | CM.NOTE ---
Rounds made with amanda Pettit to discharge to home today. No discharge needs identified.
[2023-07-03] MEDS: POTASSIUM CHLORIDE 40 MEQ in 0.9 % SODIUM CHLORIDE 250 ML 67.5 MEQ IV (10:29)
[2023-07-03] MEDS: POTASSIUM CHLORIDE 10 MEQ ER TABLET 40 MEQ PO (10:38)
[2023-07-03] MEDS: ALPRAZOLAM 0.5 MG TABLET PO (12:04)
[2023-07-03] MEDS: MORPHINE SULFATE 15 MG TABLET.ER PO (13:22)
[2023-07-03] MEDS: GABAPENTIN 300 MG CAPSULE 600 MG PO (13:22)
[2023-07-03] MEDS: ISOSORBIDE MONONITRATE 30 MG TAB.ER.24H PO (13:23)
[2023-07-03] MEDS: CITALOPRAM HYDROBROMIDE 20 MG TABLET PO (13:23)
[2023-07-03] MEDS: OMEPRAZOLE 40 MG CAPSULE.DR PO (13:23)
[2023-07-03] MEDS: ASPIRIN 81 MG TAB.CHEW PO (13:23)
[2023-07-05 04:07] LABS: Prolactin 6.1 ng/mL (4.8-23.3)
--- NOTE | 2023-07-06 13:42 | CM.DCFOLLOWU ---
No answer 2nd attempt
--- NOTE | 2023-07-07 12:38 | CM.DCFOLLOWU ---
3rd attempt. No answer
== END 2023-07-03 15:00 | disposition home or self-care (01) ==
LOC: ER 13:27 → MS 14:28
PROVIDERS: Admitting Provider Internal Medicine; Emergency Provider Emergency Medicine; PCP Family Medicine; Visit Provider Internal Medicine
DX: G93.41 Metabolic encephalopathy (principal); E87.6 Hypokalemia; I25.10 Atherosclerotic heart disease of native coronary artery without angina pectoris; Z85.3 Personal history of malignant neoplasm of breast; E78.5 Hyperlipidemia, unspecified; F32.A Depression, unspecified; R41.0 Disorientation, unspecified; E16.2 Hypoglycemia, unspecified; Z91.81 History of falling; I95.1 Orthostatic hypotension; I48.91 Unspecified atrial fibrillation; F17.210 Nicotine dependence, cigarettes, uncomplicated; D72.829 Elevated white blood cell count, unspecified; Z79.84 Long term (current) use of oral hypoglycemic drugs; Z95.5 Presence of coronary angioplasty implant and graft; Z79.899 Other long term (current) drug therapy; Z79.82 Long term (current) use of aspirin; Z79.02 Long term (current) use of antithrombotics/antiplatelets
CPT/HCPCS: 36415; 70450; 70551; 71045; 72125; 80053; 80307; 81003; 82140; 82607; 83880; 84146; 84484; 85025; 93005; 94761; 96361; 96372; 96374; 97165; 99285; G0378; J3480

== ENCOUNTER 2023-10-25 17:14 | Inpatient (IN) | payer OTHER, SELFPAY ==
[2023-10-25] VITALS (16 sets, daily range): BP systolic 77–97; BP diastolic 35–51; PULSE 46–48; RESP 12–18; TEMP 36.9; O2SAT 92–98; BMI 19.8
--- NOTE | 2023-10-25 17:30 | PC.NURSE ---
Fall at home today, pain to left rib area.
--- NOTE | 2023-10-25 18:01 | ED.UPPEXIN1 ---
Documented by User: Myron Lin MD 10/25/23 19:02 HPI - Extremity Injury (Upper) General Chief Complaint: Extremity Injury, Upper Stated Complaint: FALL Time Seen by Provider: 10/25/23 17:53 Source: patient Mode of arrival: ambulance History of Present Illness HPI narrative: this patient's here complaining of injuring her left elbow today. She says she did not fall, she was emphatic about that she says she slid down one on her way to the restroom using her walker. She said she eventually got herself up, went into the restroom and cleaned herself up. She is here today complaining primarily of pain in her left anterior chest and also in her back. She is been evaluated in [place] several times for broken ribs. She is quite sure she did not hit her chest had neck or back today with this event. She says she does not believe she needs an x-ray of her elbow causes doesn't hurt bad. She is supposed to be taking Percocet one tablet three times a day but she has only taken one early this morning. Her pulse oximetry is ninety-eight percent on room air. She lives with her but he is disabled. She does have a daughter who apparently staying with them and help them. She said when she was admitted for potassium was low at her pulse oximetry was low which is why they admitted her after she cracked a couple ribs. He was goes back to . Related Data Home Medications Medication Instructions Recorded Confirmed alprazolam 1 mg tablet 1 mg PO TID PRN sleep 06/10/23 10/25/23 clopidogrel 75 mg tablet 75 mg PO DAILY 06/10/23 10/25/23 midodrine 10 mg tablet 10 mg PO TID 06/10/23 10/25/23 nitroglycerin 0.4 mg sublingual 0.4 mg sublingual Q5M PRN chest 06/10/23 10/25/23 tablet pain zolpidem 5 mg tablet 10 mg PO .HS 06/10/23 10/26/23 aspirin 81 mg capsule 81 mg PO DAILY 07/03/23 10/25/23 atorvastatin 80 mg tablet 80 mg PO DAILY 07/03/23 10/25/23 citalopram 40 mg tablet 40 mg PO DAILY 07/03/23 10/25/23 gabapentin 600 mg tablet 600 mg PO BID 07/03/23 10/25/23 metformin 500 mg tablet 500 mg PO BID 07/03/23 10/25/23 morphine 15 mg tablet,extended 10 mg PO Q12H pain 07/03/23 10/26/23 release oxycodone-acetaminophen 7.5 mg-325 1 tab PO Q8H PRN pain 07/03/23 10/25/23 mg tablet pantoprazole 40 mg tablet,delayed 40 mg PO DAILY 07/03/23 10/25/23 release potassium chloride 10 mEq 10 meq PO BID 07/03/23 10/25/23 capsule,extended release tamoxifen 10 mg tablet 10 mg PO DAILY 07/03/23 10/25/23 Allergies Allergy/AdvReac Type Severity Reaction Status Date / Time No Known Drug Allergies Allergy Verified 06/10/23 10:09 [facility] Medical History (Updated 10/26/23 @ 01:33 by Lelia Ruby MD) Leukocytosis ?D72.829 - Elevated white blood cell count, unspecified (ICD-10) Depression ?F32.A - Depression, unspecified (ICD-10) HLD (hyperlipidemia) ?E78.5 - Hyperlipidemia, unspecified (ICD-10) CAD (coronary artery disease) ?I25.10 - Atherosclerotic heart disease of [place] coronary artery without angina pectoris (ICD-10) Chronic orthostatic hypotension ?I95.1 - Orthostatic hypotension (ICD-10) H/O malignant neoplasm of breast ?Z85.3 - Personal history of malignant neoplasm of breast (ICD-10) 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 ?C7A.8 - Other malignant neuroendocrine tumors (ICD-10) ?C7B.8 - Other secondary neuroendocrine tumors (ICD-10) Stomach cancer ?C16.9 - Malignant neoplasm of stomach, unspecified (ICD-10) Perforated intestine ?K63.1 - Perforation of intestine (nontraumatic) (ICD-10) Afib ?I48.91 - Unspecified atrial fibrillation (ICD-10) Acute confusion ?R41.0 - Disorientation, unspecified (ICD-10) Frequent falls ?R29.6 - Repeated falls (ICD-10) Chronic hypokalemia ?E87.6 - Hypokalemia (ICD-10) Surgical History (Updated 07/02/23 @ 15:12 by Umm Mercado LPN) H/O: hysterectomy ?Z90.710 - Acquired absence of both cervix and uterus (ICD-10) H/O gastric bypass ?Z98.84 - Bariatric surgery status (ICD-10) Family History (Updated 07/02/23 @ 15:09 by Umm Mercado LPN) Mother Family history of COPD (chronic obstructive pulmonary disease) Family history of cancer Family history of diabetes mellitus Grandmother Family history of cancer Social History (Updated 07/02/23 @ 15:10 by Umm Mercado LPN) Within the past year, how often did you have a drink containing alcohol: never Within the past year, how many standard drinks containing alcohol did you have on a typical day: 1 or 2 Within the past year, how often did you have six or more drinks on one occasion: never Total score: 0 Score interpretation: A score less than 3 is consistent with normal alcohol consumption. Smoking status: Current every day smoker Second hand tobacco smoke exposure: Yes Non-prescribed substance use: denies use Previous occupational history: retired Known occupational exposures/hazards: No Highest level of school completed/degree received: high school graduate Do you want help with school or training: No Are you now , , , , never or living with a partner: In a typical week, how many times do you talk on the telephone with family, friends, or neighbors: 3 or more times per week How often do you get together with friends or relatives: 3 or more times per week How often do you attend congregational or nondenominational services: never Do you belong to any clubs or organizations such as congregational groups unions, fraternal or athletic groups, or school groups: no Total score: 2 Score interpretation: A score of greater than or equal to 2 indicates the lowest level of social isolation. Little interest or pleasure in doing things: not at all Feeling down, depressed, or hopeless: not at all Feel stressed/tense/nervous/anxious/difficulty sleeping: not at all Due to disability, difficulty making decisions: No Do you think of yourself as: straight/heterosexual Gender Identity: female Exam Narrative Exam Narrative: 63-year-old female awake alert vital signs are noted. Her blood pressure trending on the low side. Her temperature is normal and her pulse oximetry is 96-97 percent on room air. She appears substantially older than stated age. She's not confused she has no altered mental status GCS fifteen. She denies any head or neck pain or discomfort. Rich focused examination shows a complete range of motion it's nontender and no bony tenderness over the left shoulder left elbow forearm and wrist. She still has discomfort in the anterior lower ribs on the left side and describes discomfort in her left posterior area of ribs. She doesn't have any abdominal discomfort. Her extremities do not have any edema and she has no pain in the lower limbs. Constitutional Vital Signs, click to edit/add: Last Vital Signs Temp 98.4 F 10/25/23 17:16 Pulse 48 L 10/25/23 20:54 Resp 18 10/25/23 20:54 BP 86/42 L 10/26/23 00:00 Pulse Ox 92 L 10/25/23 23:22 Course Vital Signs Vital signs: Vital Signs Temperature 98.4 F 10/25/23 17:16 Pulse Rate 46 L 10/25/23 17:16 Respiratory Rate 16 10/25/23 17:16 Blood Pressure 97/45 L 10/25/23 17:16 Pulse Oximetry 96 10/25/23 17:16 Temperature 98.4 F 10/25/23 17:16 Pulse Rate 48 L 10/25/23 20:54 Respiratory Rate 18 10/25/23 20:54 Blood Pressure 86/42 L 10/26/23 00:00 Pulse Oximetry 92 L 10/25/23 23:22 MDM - Extremity Injury (Upper) MDM Narrative Medical decision making narrative: the patient has recent rib fractures and has only taken one Percocet today. She's been in treatment for breast cancer over in [place]. She slid down today and does not have a substantial discomfort in her left elbow at all. Lab Data Labs: Lab Results 10/25/23 10/25/23 10/25/23 Range/Units 18:53 18:59 20:40 WBC 22.2 H (4.0-11.0) 10^3/uL RBC 4.30 (4.20-5.40) 10^6/uL Hgb 12.1 (12.0-16.0) g/dL Hct 39.7 (36.0-48.0) % MCV 92.3 (81.0-99.0) fL MCH 28.1 (26.7-34.0) pg MCHC 30.5 (29.9-35.2) g/dL RDW 16.1 H (11.0-15.0) % Plt Count 489 H (150-450) 10^3/uL MPV 10.0 (9.5-13.5) fL Neut % (Auto) 67.7 (43.0-75.0) % Lymph % (Auto) 22.9 (20.5-60.0) % [place] % (Auto) 6.6 (1.7-12.0) % Eos % (Auto) 0.5 L (0.9-7.0) % Baso % (Auto) 0.3 (0.2-2.0) % Neut # (Auto) 15.0 H (1.4-6.5) 10^3/uL Lymph # (Auto) 5.1 H (1.2-3.8) 10^3/uL [place] # (Auto) 1.5 H (0.3-0.8) 10^3/uL Eos # (Auto) 0.1 (0.0-0.7) 10^3/uL Baso # (Auto) 0.1 (0.0-0.1) 10^3/uL Abs Immat Gran (auto) 0.44 H (0.00-0.03) 10^3/uL Imm/Tot Granulo (auto) 2.0 H (0.0-0.5) % Sodium 133 L (136-145) mmol/L Potassium 3.8 (3.5-5.1) mmol/L Chloride 97 L (98-107) mmol/L Carbon Dioxide 32.8 H (21.0-32.0) mmol/L Anion Gap 7.0 BUN 19.0 H (7.0-18.0) mg/dL Creatinine 1.24 H (0.55-1.02) mg/dL Est GFR ( Amer) 53 L (>=60) Est GFR (Non-Af Amer) 44 L (>=60) BUN/Creatinine Ratio 15.3 Glucose 105 (74-106) mg/dL Lactate 1.7 (0.4-2.0) mmol/L Calcium 8.8 (8.5-10.1) mg/dL Total Bilirubin 0.2 (0.2-1.0) mg/dL AST 16 (15-37) U/L ALT 26 (14-59) U/L Alkaline Phosphatase 108 (46-116) U/L Troponin I High Sens 8.0 (4.0-51.3) pg/mL NT-Pro-B Natriuret Pep 897.0 (<=900.0) pg/mL Total Protein 6.8 (6.4-8.2) g/dL Albumin 2.9 L (3.4-5.0) g/dL Globulin 3.9 g/dL Albumin/Globulin Ratio 0.7 TSH 11.416 H (0.358-3.740) uIU/mL Urine Color Lt. yellow (YELLOW) Urine Clarity Clear (CLEAR) Urine pH 6.5 (5.0-9.0) Ur Specific [place] <=1.005 A (1.005-1.025) Urine Protein Negative (NEG/TRACE) mg/dL Urine Glucose (UA) Negative (NEGATIVE) mg/dL Urine Ketones Negative (NEGATIVE) mg/dL Urine Occult Blood Negative (NEGATIVE) Urine Nitrite Negative (NEGATIVE) Urine Bilirubin Negative (NEGATIVE) Urine Urobilinogen 0.2 (0.2-1.0) EU/dL Ur Leukocyte Esterase Negative (NEGATIVE) Influenza Type A Ag Negative Influenza Type B Ag Negative SARS-CoV-2 Ag (CV2AG) Negative (NEGATIVE) Discharge Plan Discharge Chief Complaint: Extremity Injury, Upper Clinical Impression: Acute kidney injury, Multiple rib fractures, Bradycardia, Multiple falls, Left lower lobe pneumonia, Hypothyroidism Patient Disposition: Admitted As Inpatient Time of Disposition Decision: 00:36 Condition: Fair Discharge Date/Time: 10/26/23 01:09 Documented by User: Lelia Ruby MD 10/26/23 01:33 HPI - Extremity Injury (Upper) General Chief Complaint: Extremity Injury, Upper Stated Complaint: FALL Time Seen by Provider: 10/25/23 17:53 Related Data Home Medications Medication Instructions Recorded Confirmed alprazolam 1 mg tablet 1 mg PO TID PRN sleep 06/10/23 10/25/23 clopidogrel 75 mg tablet 75 mg PO DAILY 06/10/23 10/25/23 midodrine 10 mg tablet 10 mg PO TID 06/10/23 10/25/23 nitroglycerin 0.4 mg sublingual 0.4 mg sublingual Q5M PRN chest 06/10/23 10/25/23 tablet pain zolpidem 5 mg tablet 10 mg PO .HS 06/10/23 10/26/23 aspirin 81 mg capsule 81 mg PO DAILY 07/03/23 10/25/23 atorvastatin 80 mg tablet 80 mg PO DAILY 07/03/23 10/25/23 citalopram 40 mg tablet 40 mg PO DAILY 07/03/23 10/25/23 gabapentin 600 mg tablet 600 mg PO BID 07/03/23 10/25/23 metformin 500 mg tablet 500 mg PO BID 07/03/23 10/25/23 morphine 15 mg tablet,extended 10 mg PO Q12H pain 07/03/23 10/26/23 release oxycodone-acetaminophen 7.5 mg-325 1 tab PO Q8H PRN pain 07/03/23 10/25/23 mg tablet pantoprazole 40 mg tablet,delayed 40 mg PO DAILY 07/03/23 10/25/23 release potassium chloride 10 mEq 10 meq PO BID 07/03/23 10/25/23 capsule,extended release tamoxifen 10 mg tablet 10 mg PO DAILY 07/03/23 10/25/23 Allergies Allergy/AdvReac Type Severity Reaction Status Date / Time No Known Drug Allergies Allergy Verified 06/10/23 10:09 [facility] Medical History (Updated 10/26/23 @ 01:33 by Lelia Ruby MD) Leukocytosis ?D72.829 - Elevated white blood cell count, unspecified (ICD-10) Depression ?F32.A - Depression, unspecified (ICD-10) HLD (hyperlipidemia) ?E78.5 - Hyperlipidemia, unspecified (ICD-10) CAD (coronary artery disease) ?I25.10 - Atherosclerotic heart disease of [place] coronary artery without angina pectoris (ICD-10) Chronic orthostatic hypotension ?I95.1 - Orthostatic hypotension (ICD-10) H/O malignant neoplasm of breast ?Z85.3 - Personal history of malignant neoplasm of breast (ICD-10) 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 ?C7A.8 - Other malignant neuroendocrine tumors (ICD-10) ?C7B.8 - Other secondary neuroendocrine tumors (ICD-10) Stomach cancer ?C16.9 - Malignant neoplasm of stomach, unspecified (ICD-10) Perforated intestine ?K63.1 - Perforation of intestine (nontraumatic) (ICD-10) Afib ?I48.91 - Unspecified atrial fibrillation (ICD-10) Acute confusion ?R41.0 - Disorientation, unspecified (ICD-10) Frequent falls ?R29.6 - Repeated falls (ICD-10) Chronic hypokalemia ?E87.6 - Hypokalemia (ICD-10) Surgical History (Updated 07/02/23 @ 15:12 by Umm Mercado LPN) H/O: hysterectomy ?Z90.710 - Acquired absence of both cervix and uterus (ICD-10) H/O gastric bypass ?Z98.84 - Bariatric surgery status (ICD-10) Family History (Updated 07/02/23 @ 15:09 by Umm Mercado LPN) Mother Family history of COPD (chronic obstructive pulmonary disease) Family history of cancer Family history of diabetes mellitus Grandmother Family history of cancer Social History (Updated 07/02/23 @ 15:10 by Umm Mercado LPN) Within the past year, how often did you have a drink containing alcohol: never Within the past year, how many standard drinks containing alcohol did you have on a typical day: 1 or 2 Within the past year, how often did you have six or more drinks on one occasion: never Total score: 0 Score interpretation: A score less than 3 is consistent with normal alcohol consumption. Smoking status: Current every day smoker Second hand tobacco smoke exposure: Yes Non-prescribed substance use: denies use Previous occupational history: retired Known occupational exposures/hazards: No Highest level of school completed/degree received: high school graduate Do you want help with school or training: No Are you now , , , , never or living with a partner: In a typical week, how many times do you talk on the telephone with family, friends, or neighbors: 3 or more times per week How often do you get together with friends or relatives: 3 or more times per week How often do you attend congregational or nondenominational services: never Do you belong to any clubs or organizations such as congregational groups unions, fraternal or athletic groups, or school groups: no Total score: 2 Score interpretation: A score of greater than or equal to 2 indicates the lowest level of social isolation. Little interest or pleasure in doing things: not at all Feeling down, depressed, or hopeless: not at all Feel stressed/tense/nervous/anxious/difficulty sleeping: not at all Due to disability, difficulty making decisions: No Do you think of yourself as: straight/heterosexual Gender Identity: female Exam Constitutional Vital Signs, click to edit/add: Last Vital Signs Temp 98.4 F 10/25/23 17:16 Pulse 48 L 10/25/23 20:54 Resp 18 10/25/23 20:54 BP 86/42 L 10/26/23 00:00 Pulse Ox 92 L 10/25/23 23:22 Course Vital Signs Vital signs: Vital Signs Temperature 98.4 F 10/25/23 17:16 Pulse Rate 46 L 10/25/23 17:16 Respiratory Rate 16 10/25/23 17:16 Blood Pressure 97/45 L 10/25/23 17:16 Pulse Oximetry 96 10/25/23 17:16 Temperature 98.4 F 10/25/23 17:16 Pulse Rate 48 L 10/25/23 20:54 Respiratory Rate 18 10/25/23 20:54 Blood Pressure 86/42 L 10/26/23 00:00 Pulse Oximetry 92 L 10/25/23 23:22 MDM - Extremity Injury (Upper) MDM Narrative Medical decision making narrative: the patient has recent rib fractures and has only taken one Percocet today. She's been in treatment for breast cancer over in [place]. She slid down today and does not have a substantial discomfort in her left elbow at all. This 63-year-old female with a history of tobacco use, breast cancer, CAD with 5 coronary stents, gastric bypass surgery, appendectomy, hysterectomy and recently Covid 19, who fell around [place] and had 2 rib fractures and also was admitted twice to [facility] was signed out to me at shift change. She presents for evaluation of pain, shortness of breath and an additional fall today due to generalized weakness. It was explained to me that she fell from a sitting position and scraped her left elbow. She is currently on steroids but not on any antibiotics. The patient was noted to be mildly hypotensive and have bradycardia so labs were ordered and the patient was medicated with a dose of Percocet prior to my arrival. The patient was seen and evaluated. She appears somewhat ill, has conversational dyspnea, she has decreased lung sounds bilaterally and tenderness in the left lateral rib cage area. She also states to me that she has not had a bowel movement in the past 2 weeks. She has been on pain medication for her rib fractures but states she is not passing gas or having bowel movements. Abdomen was soft with normal bowel sounds. Her mucous membranes were dry and she was persistently hypotensive. An IV was placed and she was medicated with IV fluids and a CTA of the chest was ordered. I added on CT of the abdomen and pelvis due to the constipation with history of gastric bypass surgery. Labs are reviewed. She has an elevated white count at 22. She has a normal lactic acid. Troponin is normal. Covid 19 and influenza are negative. She has an elevated thyroid-stimulating hormone. She has mild elevation in her BUN and creatinine. Her BUN today is 19 and creatinine is 1.24, The last creatinine we have on record was 0.8. CTA of the chest is negative for pulmonary embolism but does show 3 rib fractures with a left-sided pleural effusion and consolidation in the left lower lobe as well as Bilateral patchy airspace opacities in both lungs. CT scan of abdomen and pelvis shows chronic changes but no acute bowel obstruction or other abnormal findings. She is medicated emergency department with IV fluids and Zosyn. Blood pressure has improved with the IV fluids and at the time of this dictation is 91/47. The case has been discussed with the hospitalist and she is accepted for admission. She will be placed in ICU/stepdown bed due to the low blood pressure and pneumonia until she is deemed more stable for transfer to a Medr bed. Medical Records Medical records narrative: The [address] [address] [address] Scan Report Signed Patient: HONEY MONTES MR#: [id number] : 1960 Acct:[id number] Age/Sex: 63 / F ADM Date: 10/25/23 Loc: ER Attending Dr: Ordering Physician: Leila Ruby Date of Service: 10/25/23 Procedure(s): CT abdomen pelvis w con Accession Number(s): [id number] cc: IAM OQUENDO ~ [facility] [address], [place] [address] Patient Name: HONEY MONTES MRN: [id number] date: 1960 Sex: F Assigned Patient Location: ER Current Patient Location: ER Accession/Order Number: [id number] Exam Date: 10/25/2023 22:12 Report Date: 10/25/2023 23:00 At the request of: LELIA MARKER Procedure: CT abdomen pelvis w con CT CHEST ABDOMEN AND PELVIS WITH CONTRAST: INDICATION: Dyspnea. COMPARISON: No prior chest CT for comparison. Correlation is made to a CT scan of the abdomen and pelvis dated 04/18/2020. TECHNIQUE: Helical CT images were obtained of the chest, abdomen and pelvis after the administration of intravenous contrast. Images through the chest were obtained per CT angiogram protocol. Coronal and sagittal reconstructed images were reviewed. FINDINGS: CHEST: LUNGS: There are patchy some solid airspace opacities in each upper lobe and minimally in the lingula/right middle lobe. There is new localized consolidative airspace disease in the left lung base. These imaging findings may be due to multifocal infection. There is subpleural atelectasis in the right lower lobe. There is no pneumothorax. PLEURAL CAVITY: There is a small left pleural effusion. MEDIASTINUM: There is debris in the trachea secondary to mucus. The mainstem bronchi are patent. HEART: Mild to moderate coronary artery calcifications are present. There is no right heart strain. VASCULAR:There is no aneurysm or dissection of the thoracic aorta. There is excellent opacification of the pulmonary arteries. There is no pulmonary embolism. LYMPH NODES:No suspicious lymphadenopathy. CHEST WALL/AXILLA: Chest wall and axilla are unremarkable. ABDOMEN AND PELVIS: LIVER: The liver is unremarkable. GALLBLADDER AND BILIARY SYSTEM: There is intra and extrahepatic ductal dilation which may be due to the postsurgical status of the patient. The gallbladder is absent. SPLEEN: The spleen is unremarkable. PANCREAS: The pancreas is unremarkable. ADRENAL GLANDS: The adrenal glands are unremarkable. KIDNEYS AND URETERS: There is no hydronephrosis of the kidneys.No obstructing urologic calcifications are present. VASCULATURE: Atherosclerotic plaque is present in the abdominal aorta without aneurysm. PERITONEUM/RETROPERITONEUM: Peritoneum/retroperitoneum is unremarkable. LYMPH NODES: No suspicious lymphadenopathy. GASTROINTESTINAL TRACT: The patient is status post gastric bypass procedure. There is no bowel obstruction. There is a duodenal diverticulum.No acute inflammatory changes are associated with the bowel.The appendix is not well delineated and may be absent or diminutive. BLADDER: The urinary bladder is unremarkable. REPRODUCTIVE SYSTEM: The uterus is absent. BODY WALL: Unremarkable. BONES: There are fractures involving the left eighth and ninth ribs. The fractures are posterior and lateral within each rib. There is a fracture in the left lateral 10th rib. There are no acute compression fractures of the thoracic spine. CT/CT abdomen pelvis w con IMPRESSION: 1. No pulmonary embolism in the chest. 2. New patchy groundglass airspace disease throughout the lungs as discussed above, left upper lobe greater than right. There is increased consolidative density in the left lower lobe. The imaging findings may be due to multifocal infection. There is also a small left pleural effusion. 3. Fractures in the left eighth through 10th ribs laterally. There are also additional fractures in the posterior eighth and ninth ribs. 4. Stable chronic/postsurgical changes in the abdomen and pelvis as discussed above. No definitive acute inflammatory process or traumatic injuries in the abdomen or pelvis. Electronically authenticated by: FRANCIS BRADY Date: 10/25/2023 23:00 Lab Data Labs: Lab Results 10/25/23 10/25/23 10/25/23 Range/Units 18:53 18:59 20:40 WBC 22.2 H (4.0-11.0) 10^3/uL RBC 4.30 (4.20-5.40) 10^6/uL Hgb 12.1 (12.0-16.0) g/dL Hct 39.7 (36.0-48.0) % MCV 92.3 (81.0-99.0) fL MCH 28.1 (26.7-34.0) pg MCHC 30.5 (29.9-35.2) g/dL RDW 16.1 H (11.0-15.0) % Plt Count 489 H (150-450) 10^3/uL MPV 10.0 (9.5-13.5) fL Neut % (Auto) 67.7 (43.0-75.0) % Lymph % (Auto) 22.9 (20.5-60.0) % [place] % (Auto) 6.6 (1.7-12.0) % Eos % (Auto) 0.5 L (0.9-7.0) % Baso % (Auto) 0.3 (0.2-2.0) % Neut # (Auto) 15.0 H (1.4-6.5) 10^3/uL Lymph # (Auto) 5.1 H (1.2-3.8) 10^3/uL [place] # (Auto) 1.5 H (0.3-0.8) 10^3/uL Eos # (Auto) 0.1 (0.0-0.7) 10^3/uL Baso # (Auto) 0.1 (0.0-0.1) 10^3/uL Abs Immat Gran (auto) 0.44 H (0.00-0.03) 10^3/uL Imm/Tot Granulo (auto) 2.0 H (0.0-0.5) % Sodium 133 L (136-145) mmol/L Potassium 3.8 (3.5-5.1) mmol/L Chloride 97 L (98-107) mmol/L Carbon Dioxide 32.8 H (21.0-32.0) mmol/L Anion Gap 7.0 BUN 19.0 H (7.0-18.0) mg/dL Creatinine 1.24 H (0.55-1.02) mg/dL Est GFR ( Amer) 53 L (>=60) Est GFR (Non-Af Amer) 44 L (>=60) BUN/Creatinine Ratio 15.3 Glucose 105 (74-106) mg/dL Lactate 1.7 (0.4-2.0) mmol/L Calcium 8.8 (8.5-10.1) mg/dL Total Bilirubin 0.2 (0.2-1.0) mg/dL AST 16 (15-37) U/L ALT 26 (14-59) U/L Alkaline Phosphatase 108 (46-116) U/L Troponin I High Sens 8.0 (4.0-51.3) pg/mL NT-Pro-B Natriuret Pep 897.0 (<=900.0) pg/mL Total Protein 6.8 (6.4-8.2) g/dL Albumin 2.9 L (3.4-5.0) g/dL Globulin 3.9 g/dL Albumin/Globulin Ratio 0.7 TSH 11.416 H (0.358-3.740) uIU/mL Urine Color Lt. yellow (YELLOW) Urine Clarity Clear (CLEAR) Urine pH 6.5 (5.0-9.0) Ur Specific [place] <=1.005 A (1.005-1.025) Urine Protein Negative (NEG/TRACE) mg/dL Urine Glucose (UA) Negative (NEGATIVE) mg/dL Urine Ketones Negative (NEGATIVE) mg/dL Urine Occult Blood Negative (NEGATIVE) Urine Nitrite Negative (NEGATIVE) Urine Bilirubin Negative (NEGATIVE) Urine Urobilinogen 0.2 (0.2-1.0) EU/dL Ur Leukocyte Esterase Negative (NEGATIVE) Influenza Type A Ag Negative Influenza Type B Ag Negative SARS-CoV-2 Ag (CV2AG) Negative (NEGATIVE) ECG Data Attestation: I personally reviewed and interpreted this ECG as follows: (Sinus bradycardia at 45 beats for minute, left anterior hemiblock, no acute ST segment elevation or T-wave inversion) Critical Care Time Critical Care Time Critical Care Time: Yes Total Critical Care Time: 45 Attestation: Patient evaluated and treated for hypotension, pneumonia with hypoxia multiple rib fractures with acute kidney injury, resuscitated with IV fluids and admitted to ICU Discharge Plan Discharge Chief Complaint: Extremity Injury, Upper Clinical Impression: Acute kidney injury, Multiple rib fractures, Bradycardia, Multiple falls, Left lower lobe pneumonia, Hypothyroidism Patient Disposition: Admitted As Inpatient Time of Disposition Decision: 00:36 Condition: Fair Discharge Date/Time: 10/26/23 01:09
--- NOTE | 2023-10-25 18:04 | XR_ITS ---
[address] [address] Patient Name: HONEY MONTES MRN: [id number] date: 1960 Sex: F Assigned Patient Location: ER Current Patient Location: ER Accession/Order Number: [id number] Exam Date: 10/25/2023 18:11 Report Date: 10/25/2023 18:30 At the request of: SADE ESCOBAR Procedure: XR chest 1V Exam: Radiographs: XR chest 1V Reason for exam: recent rib fractures left Comparison: Chest x-ray dated 07/02/2023 XR/XR chest 1V IMPRESSION: Minimal atelectasis and/or infiltrate in the lower lungs bilaterally. Pulmonary venous hypertension. Coronary stents. Remainder of the chest is unremarkable. Electronically authenticated by: ARACELI MASCORRO Date: 10/25/2023 18:30
--- NOTE | 2023-10-25 18:04 | ECG_ITS ---
[facility] Test Date: 2023-10-25 Pat Name: HONEY MONTES Department: Room: - Gender: Female [employer]: : 1960 Requested By: [id number] Order Number: [id number] Reading MD: JOSHUA FLORENCE Measurements Intervals [place] Rate: 45 P: 69 [place]: 160 QRS: -59 QRSD: 86 T: 90 QT: 408 QTc: 361 Interpretive Statements 1130 Sinus bradycardia 2420 RSR (QR) in lead V1/V2, consistent with right ventricular conduction delay 2630 Left anterior fascicular block 8003 Consistent with pulmonary disease 9150 abnormal ECG Compared to ECG 07/02/2023 10:41:03 Sinus rhythm no longer present Electronically Signed On 10-30-2023 6:42:58 EST by JOSHUA FLORENCE
[2023-10-25] MEDS: OXYCODONE HCL/ACETAMINOPHEN 5MG/325MG 1 TAB PO (18:44)
--- NOTE | 2023-10-25 19:02 | CT_ITS ---
The [address] [address] Patient Name: HONEY MONTES MRN: [id number] date: 1960 Sex: F Assigned Patient Location: ER Current Patient Location: ER Accession/Order Number: [id number] Exam Date: 10/25/2023 22:12 Report Date: 10/25/2023 23:00 At the request of: SADE ESCOBAR Procedure: CT angio chest CT CHEST ABDOMEN AND PELVIS WITH CONTRAST: INDICATION: Dyspnea. COMPARISON: No prior chest CT for comparison. Correlation is made to a CT scan of the abdomen and pelvis dated 04/18/2020. TECHNIQUE: Helical CT images were obtained of the chest, abdomen and pelvis after the administration of intravenous contrast. Images through the chest were obtained per CT angiogram protocol. Coronal and sagittal reconstructed images were reviewed. FINDINGS: CHEST: LUNGS: There are patchy some solid airspace opacities in each upper lobe and minimally in the lingula/right middle lobe. There is new localized consolidative airspace disease in the left lung base. These imaging findings may be due to multifocal infection. There is subpleural atelectasis in the right lower lobe. There is no pneumothorax. PLEURAL CAVITY: There is a small left pleural effusion. MEDIASTINUM: There is debris in the trachea secondary to mucus. The mainstem bronchi are patent. HEART: Mild to moderate coronary artery calcifications are present. There is no right heart strain. VASCULAR:There is no aneurysm or dissection of the thoracic aorta. There is excellent opacification of the pulmonary arteries. There is no pulmonary embolism. LYMPH NODES:No suspicious lymphadenopathy. CHEST WALL/AXILLA: Chest wall and axilla are unremarkable. ABDOMEN AND PELVIS: LIVER: The liver is unremarkable. GALLBLADDER AND BILIARY SYSTEM: There is intra and extrahepatic ductal dilation which may be due to the postsurgical status of the patient. The gallbladder is absent. SPLEEN: The spleen is unremarkable. PANCREAS: The pancreas is unremarkable. ADRENAL GLANDS: The adrenal glands are unremarkable. KIDNEYS AND URETERS: There is no hydronephrosis of the kidneys.No obstructing urologic calcifications are present. VASCULATURE: Atherosclerotic plaque is present in the abdominal aorta without aneurysm. PERITONEUM/RETROPERITONEUM: Peritoneum/retroperitoneum is unremarkable. LYMPH NODES: No suspicious lymphadenopathy. GASTROINTESTINAL TRACT: The patient is status post gastric bypass procedure. There is no bowel obstruction. There is a duodenal diverticulum.No acute inflammatory changes are associated with the bowel.The appendix is not well delineated and may be absent or diminutive. BLADDER: The urinary bladder is unremarkable. REPRODUCTIVE SYSTEM: The uterus is absent. BODY WALL: Unremarkable. BONES: There are fractures involving the left eighth and ninth ribs. The fractures are posterior and lateral within each rib. There is a fracture in the left lateral 10th rib. There are no acute compression fractures of the thoracic spine. CT/CT angio chest IMPRESSION: 1. No pulmonary embolism in the chest. 2. New patchy groundglass airspace disease throughout the lungs as discussed above, left upper lobe greater than right. There is increased consolidative density in the left lower lobe. The imaging findings may be due to multifocal infection. There is also a small left pleural effusion. 3. Fractures in the left eighth through 10th ribs laterally. There are also additional fractures in the posterior eighth and ninth ribs. 4. Stable chronic/postsurgical changes in the abdomen and pelvis as discussed above. No definitive acute inflammatory process or traumatic injuries in the abdomen or pelvis. Electronically authenticated by: FRANCIS BRADY Date: 10/25/2023 23:00
[2023-10-25 19:04] LABS: Basophils Absolute Auto 0.1 10^3/uL (0.0-0.1); Basophils Percent Auto 0.3 % (0.2-2.0); Eosinophils Absolute Auto 0.1 10^3/uL (0.0-0.7); Eosinophils Percent Auto 0.5 % (0.9-7.0); Hematocrit 39.7 % (36.0-48.0); Hemoglobin 12.1 g/dL (12.0-16.0); Immature Granulocytes Abs Auto 0.44 10^3/uL (0.00-0.03); Lymphocytes Absolute Auto 5.1 10^3/uL (1.2-3.8); Lymphocytes Percent Auto 22.9 % (20.5-60.0); Mean Corpuscular HGB Conc 30.5 g/dL (29.9-35.2); Mean Corpuscular Hemoglobin 28.1 pg (26.7-34.0); Mean Corpuscular Volume 92.3 fL (81.0-99.0); Monocytes Absolute Auto 1.5 10^3/uL (0.3-0.8); Monocytes Percent Auto 6.6 % (1.7-12.0); Neutrophils Percent Auto 67.7 % (43.0-75.0); Platelet Count 489 10^3/uL (150-450); Red Cell Distribution Width 16.1 % (11.0-15.0); White Blood Count 22.2 10^3/uL (4.0-11.0)
[2023-10-25 19:05] LABS: Bilirubin Urine NEGATIVE (NEGATIVE); Blood Urine NEGATIVE (NEGATIVE); Clarity Urine CLEAR (CLEAR); Color Urine LT. YELLOW (YELLOW); Glucose Urine UA NEGATIVE (NEGATIVE); Ketones Urine NEGATIVE (NEGATIVE); Leukocyte Esterase Urine NEGATIVE (NEGATIVE); Nitrite Urine NEGATIVE (NEGATIVE); Protein Urine NEGATIVE (NEG/TRACE); Specific Gravity Urine <=1.005 (1.005-1.025); Urine Microscopic Indicated NO; Urobilinogen Urine 0.2 EU/dL (0.2-1.0); pH Urine 6.5 (5.0-9.0)
[2023-10-25 19:25] LABS: Lactate/Lactic Acid 1.7 mmol/L (0.4-2.0)
[2023-10-25 19:32] LABS: Alanine Aminotransferase 26 U/L (14-59); Albumin Globulin Ratio 0.7; Albumin Level 2.9 g/dL (3.4-5.0); Alkaline Phosphatase 108 U/L (46-116); Aspartate Amino Transferase 16 U/L (15-37); BUN Creatinine Ratio 15.3; Bilirubin Total 0.2 mg/dL (0.2-1.0); Calcium 8.8 mg/dL (8.5-10.1); Carbon Dioxide 32.8 mmol/L (21.0-32.0); Chloride 97 mmol/L (98-107); Estimated GFR (African America 53 (>=60); Estimated GFR (Non-African Ame 44 (>=60); Globulin 3.9 g/dL; Glucose 105 mg/dL (74-106); Potassium 3.8 mmol/L (3.5-5.1); Sodium 133 mmol/L (136-145); Thyroid Stimulating Hormone 11.416 uIU/mL (0.358-3.740); Total Protein 6.8 g/dL (6.4-8.2)
--- NOTE | 2023-10-25 20:39 | CT_ITS ---
The [address] [address] Patient Name: HONEY MONTES MRN: [id number] date: 1960 Sex: F Assigned Patient Location: ER Current Patient Location: ER Accession/Order Number: [id number] Exam Date: 10/25/2023 22:12 Report Date: 10/25/2023 23:00 At the request of: MARYANA MARKER Procedure: CT abdomen pelvis w con CT CHEST ABDOMEN AND PELVIS WITH CONTRAST: INDICATION: Dyspnea. COMPARISON: No prior chest CT for comparison. Correlation is made to a CT scan of the abdomen and pelvis dated 04/18/2020. TECHNIQUE: Helical CT images were obtained of the chest, abdomen and pelvis after the administration of intravenous contrast. Images through the chest were obtained per CT angiogram protocol. Coronal and sagittal reconstructed images were reviewed. FINDINGS: CHEST: LUNGS: There are patchy some solid airspace opacities in each upper lobe and minimally in the lingula/right middle lobe. There is new localized consolidative airspace disease in the left lung base. These imaging findings may be due to multifocal infection. There is subpleural atelectasis in the right lower lobe. There is no pneumothorax. PLEURAL CAVITY: There is a small left pleural effusion. MEDIASTINUM: There is debris in the trachea secondary to mucus. The mainstem bronchi are patent. HEART: Mild to moderate coronary artery calcifications are present. There is no right heart strain. VASCULAR:There is no aneurysm or dissection of the thoracic aorta. There is excellent opacification of the pulmonary arteries. There is no pulmonary embolism. LYMPH NODES:No suspicious lymphadenopathy. CHEST WALL/AXILLA: Chest wall and axilla are unremarkable. ABDOMEN AND PELVIS: LIVER: The liver is unremarkable. GALLBLADDER AND BILIARY SYSTEM: There is intra and extrahepatic ductal dilation which may be due to the postsurgical status of the patient. The gallbladder is absent. SPLEEN: The spleen is unremarkable. PANCREAS: The pancreas is unremarkable. ADRENAL GLANDS: The adrenal glands are unremarkable. KIDNEYS AND URETERS: There is no hydronephrosis of the kidneys.No obstructing urologic calcifications are present. VASCULATURE: Atherosclerotic plaque is present in the abdominal aorta without aneurysm. PERITONEUM/RETROPERITONEUM: Peritoneum/retroperitoneum is unremarkable. LYMPH NODES: No suspicious lymphadenopathy. GASTROINTESTINAL TRACT: The patient is status post gastric bypass procedure. There is no bowel obstruction. There is a duodenal diverticulum.No acute inflammatory changes are associated with the bowel.The appendix is not well delineated and may be absent or diminutive. BLADDER: The urinary bladder is unremarkable. REPRODUCTIVE SYSTEM: The uterus is absent. BODY WALL: Unremarkable. BONES: There are fractures involving the left eighth and ninth ribs. The fractures are posterior and lateral within each rib. There is a fracture in the left lateral 10th rib. There are no acute compression fractures of the thoracic spine. CT/CT abdomen pelvis w con IMPRESSION: 1. No pulmonary embolism in the chest. 2. New patchy groundglass airspace disease throughout the lungs as discussed above, left upper lobe greater than right. There is increased consolidative density in the left lower lobe. The imaging findings may be due to multifocal infection. There is also a small left pleural effusion. 3. Fractures in the left eighth through 10th ribs laterally. There are also additional fractures in the posterior eighth and ninth ribs. 4. Stable chronic/postsurgical changes in the abdomen and pelvis as discussed above. No definitive acute inflammatory process or traumatic injuries in the abdomen or pelvis. Electronically authenticated by: FRANCIS BRADY Date: 10/25/2023 23:00
[2023-10-25] MEDS: 0.9 % SODIUM CHLORIDE 1,000 ML 1000 ML IV (20:44)
[2023-10-25 21:20] LABS: Influenza Virus A Antigen Negative; Influenza Virus B Antigen Negative; Internal Control Within Normal Limits; SARS-CoV-2 Ag NEGATIVE (NEGATIVE)
[2023-10-25] MEDS: 0.9 % SODIUM CHLORIDE 1,000 ML 125 ML IV (23:01)
[2023-10-25] MEDS: PIPERACILLIN SODIUM/TAZOBACTAM 3.375 GM in 0.9 % SODIUM CHLORIDE 50 ML IV (23:01)
[2023-10-26] VITALS (84 sets, daily range): BP systolic 76–164; BP diastolic 30–73; PULSE 44–141; RESP 11–30; TEMP 36.6–36.8; O2SAT 85–100; BMI 22.1
[2023-10-26] MEDS: OXYCODONE HCL 5 MG TABLET 2.5 MG PO (02:56)
[2023-10-26] MEDS: OXYCODONE HCL/ACETAMINOPHEN 5MG/325MG 1 TAB PO ×3 (02:57→19:44)
[2023-10-26] MEDS: ALPRAZOLAM 1 MG TABLET PO (02:58)
[2023-10-26] MEDS: ONDANSETRON PF 4 MG/2 ML VIAL IV (02:59)
[2023-10-26 05:00] LABS: BUN Creatinine Ratio 16.8; Calcium 8.3 mg/dL (8.5-10.1); Carbon Dioxide 30.5 mmol/L (21.0-32.0); Chloride 108 mmol/L (98-107); Estimated GFR (African America >60 (>=60); Estimated GFR (Non-African Ame 56 (>=60); Glucose 93 mg/dL (74-106); Potassium 3.5 mmol/L (3.5-5.1); Sodium 142 mmol/L (136-145)
[2023-10-26 07:54] LABS: Basophils Percent Auto 0.2 % (0.2-2.0); Eosinophils Absolute Auto 0.2 10^3/uL (0.0-0.7); Eosinophils Percent Auto 0.9 % (0.9-7.0); Hematocrit 34.3 % (36.0-48.0); Hemoglobin 10.3 g/dL (12.0-16.0); Immature Granulocytes Abs Auto 0.25 10^3/uL (0.00-0.03); Immature Granulocytes Pct Auto 1.5 % (0.0-0.5); Lymphocytes Absolute Auto 4.3 10^3/uL (1.2-3.8); Mean Corpuscular Hemoglobin 28.1 pg (26.7-34.0); Mean Corpuscular Volume 93.5 fL (81.0-99.0); Mean Platelet Volume 10.6 fL (9.5-13.5); Monocytes Absolute Auto 1.1 10^3/uL (0.3-0.8); Monocytes Percent Auto 6.6 % (1.7-12.0); Neutrophils Absolute Auto 10.6 10^3/uL (1.4-6.5); Neutrophils Percent Auto 64.8 % (43.0-75.0); Platelet Count 420 10^3/uL (150-450); Red Blood Count 3.67 10^6/uL (4.20-5.40); Red Cell Distribution Width 16.2 % (11.0-15.0); White Blood Count 16.4 10^3/uL (4.0-11.0)
[2023-10-26] MEDS: PIPERACILLIN SODIUM/TAZOBACTAM 3.375 GM in 0.9 % SODIUM CHLORIDE 50 ML IV ×2 (08:07→16:28)
[2023-10-26 08:12] LABS: Alanine Aminotransferase 21 U/L (14-59); Albumin Globulin Ratio 0.7; Albumin Level 2.3 g/dL (3.4-5.0); Alkaline Phosphatase 90 U/L (46-116); Aspartate Amino Transferase 14 U/L (15-37); Bilirubin Direct 0.1 mg/dL (0.0-0.2); Bilirubin Total 0.2 mg/dL (0.2-1.0); Free T3 2.03 pg/mL (2.18-3.98); Globulin 3.3 g/dL; Magnesium 1.9 mg/dL (1.8-2.4); Total Protein 5.6 g/dL (6.4-8.2); Troponin I High Sensitivity 6.3 pg/mL (4.0-51.3)
[2023-10-26 08:55] LABS: Glucometer 95 mg/dL (74-106)
[2023-10-26] MEDS: GABAPENTIN 300 MG CAPSULE 600 MG PO ×2 (09:40→20:59)
[2023-10-26] MEDS: CLOPIDOGREL BISULFATE 75 MG TABLET PO (09:40)
[2023-10-26] MEDS: HEPARIN SODIUM (PORCINE) 5,000 UNIT/ML VIAL 5000 UNIT SUBQ ×2 (09:40→20:59)
[2023-10-26] MEDS: POTASSIUM CHLORIDE 10 MEQ ER TABLET PO ×2 (09:40→20:59)
[2023-10-26] MEDS: SENNOSIDES/DOCUSATE SODIUM 1 TAB TABLET PO (09:41)
[2023-10-26] MEDS: OMEPRAZOLE 40 MG CAPSULE.DR PO (09:41)
[2023-10-26] MEDS: ASPIRIN 81 MG TAB.CHEW PO (09:41)
[2023-10-26] MEDS: CITALOPRAM HYDROBROMIDE 20 MG TABLET 40 MG PO (09:41)
--- NOTE | 2023-10-26 09:41 | CM.NOTE ---
Rounds made with Dr. Weaver, no discharge today. PT and OT will consult with pt today.
--- NOTE | 2023-10-26 10:00 | P.HP_ITS ---
H&P: HPI History of Present Illness Chief complaint: FALL Narrative: Patient presented to the emergency room, found to have significant respiratory distress, although no hypoxia found to have pneumonia with failed outpatient treatment. She is on a once a day antibiotics suspecting is levofloxacin. She had been on this for period of over a week. Patient discharge from outside facility. Patient with significant hypotension in the emergency room as well. Patient will be admitted to the intensive care unit When I saw patient she did still having some conversational dyspnea, a lot of splinting secondary to the rib fracture. Significant hypotension persisting. Review of Systems ROS Status of ROS 10 or more systems reviewed and unremark able except as noted in history and below [facility] Medical History (Updated 10/26/23 @ 05:25 by Violet Aly RN) Constipation ?K59.00 - Constipation, unspecified (ICD-10) Diabetes ?E11.9 - Type 2 diabetes mellitus without complications (ICD-10) Leukocytosis ?D72.829 - Elevated white blood cell count, unspecified (ICD-10) Depression ?F32.A - Depression, unspecified (ICD-10) HLD (hyperlipidemia) ?E78.5 - Hyperlipidemia, unspecified (ICD-10) CAD (coronary artery disease) ?I25.10 - Atherosclerotic heart disease of [place] coronary artery without angina pectoris (ICD-10) Chronic orthostatic hypotension ?I95.1 - Orthostatic hypotension (ICD-10) H/O malignant neoplasm of breast ?Z85.3 - Personal history of malignant neoplasm of breast (ICD-10) 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 ?C7A.8 - Other malignant neuroendocrine tumors (ICD-10) ?C7B.8 - Other secondary neuroendocrine tumors (ICD-10) Stomach cancer ?C16.9 - Malignant neoplasm of stomach, unspecified (ICD-10) Perforated intestine ?K63.1 - Perforation of intestine (nontraumatic) (ICD-10) Afib ?I48.91 - Unspecified atrial fibrillation (ICD-10) Acute confusion ?R41.0 - Disorientation, unspecified (ICD-10) Frequent falls ?R29.6 - Repeated falls (ICD-10) Chronic hypokalemia ?E87.6 - Hypokalemia (ICD-10) Surgical History (Updated 10/26/23 @ 05:24 by Violet Aly RN) S/P lumpectomy, right breast ?Z98.890 - Other specified postprocedural states (ICD-10) H/O: hysterectomy ?Z90.710 - Acquired absence of both cervix and uterus (ICD-10) H/O gastric bypass ?Z98.84 - Bariatric surgery status (ICD-10) Family History (Updated 07/02/23 @ 15:09 by Umm Mercado LPN) Mother Family history of COPD (chronic obstructive pulmonary disease) Family history of cancer Family history of diabetes mellitus Grandmother Family history of cancer Social History (Updated 07/02/23 @ 15:10 by Umm Mercado LPN) Within the past year, how often did you have a drink containing alcohol: never Within the past year, how many standard drinks containing alcohol did you have on a typical day: 1 or 2 Within the past year, how often did you have six or more drinks on one occasion: never Total score: 0 Score interpretation: A score less than 3 is consistent with normal alcohol consumption. Smoking status: Current every day smoker Second hand tobacco smoke exposure: Yes Non-prescribed substance use: denies use Previous occupational history: retired Known occupational exposures/hazards: No Highest level of school completed/degree received: high school graduate Do you want help with school or training: No Are you now , , , , never or living with a partner: In a typical week, how many times do you talk on the telephone with family, friends, or neighbors: 3 or more times per week How often do you get together with friends or relatives: 3 or more times per week How often do you attend orthodoxy or restoration services: never Do you belong to any clubs or organizations such as orthodoxy groups unions, fraternal or athletic groups, or school groups: no Total score: 2 Score interpretation: A score of greater than or equal to 2 indicates the lowest level of social isolation. Little interest or pleasure in doing things: not at all Feeling down, depressed, or hopeless: not at all Feel stressed/tense/nervous/anxious/difficulty sleeping: not at all Due to disability, difficulty making decisions: No Do you think of yourself as: straight/heterosexual Gender Identity: female Meds Home Medications and Allergies Home Medications Medication Instructions Recorded Confirmed Type alprazolam 1 mg tablet 1 mg PO TID PRN anxiety 06/10/23 10/26/23 History clopidogrel 75 mg tablet 75 mg PO DAILY 06/10/23 10/25/23 History midodrine 10 mg tablet 10 mg PO TID 06/10/23 10/25/23 History nitroglycerin 0.4 mg sublingual 0.4 mg sublingual Q5M PRN chest 06/10/23 10/25/23 History tablet pain zolpidem 5 mg tablet 10 mg PO .HS PRN sleep 06/10/23 10/26/23 History atorvastatin 80 mg tablet 80 mg PO DAILY 07/03/23 10/25/23 History citalopram 40 mg tablet 40 mg PO DAILY 07/03/23 10/25/23 History gabapentin 600 mg tablet 600 mg PO BID 07/03/23 10/25/23 History metformin 500 mg tablet 500 mg PO BID 07/03/23 10/25/23 History morphine 15 mg tablet,extended 10 mg PO Q12H pain 07/03/23 10/26/23 History release oxycodone-acetaminophen 7.5 mg-325 1 tab PO Q8H PRN pain 07/03/23 10/25/23 History mg tablet pantoprazole 40 mg tablet,delayed 40 mg PO DAILY 07/03/23 10/25/23 History release potassium chloride 10 mEq 10 meq PO BID 07/03/23 10/25/23 History capsule,extended release aspirin 81 mg chewable tablet 81 mg PO DAILY 10/26/23 10/26/23 History tamoxifen 20 mg tablet 20 mg PO DAILY 10/26/23 10/26/23 History Allergies Allergy/AdvReac Type Severity Reaction Status Date / Time No Known Drug Allergies Allergy Verified 06/10/23 10:09 Exam Constitutional Vital Signs, click to edit/add: Last Vital Signs Temp 98 F 10/26/23 01:15 Pulse 57 L 10/26/23 08:00 Resp 24 10/26/23 08:00 BP 100/57 10/26/23 06:00 Pulse Ox 92 L 10/26/23 08:00 O2 Del Method Nasal Cannula 10/26/23 06:00 O2 Flow Rate 2 10/26/23 06:00 Common normals: apparent distress Respiratory Common normals: normal respiratory effort and no retractions Cardio Common normals: regular rate and regular rhythm GI Common normals: Normal to inspection, nondistended, normoactive bowel sounds present and soft to palpation; tender Palpation: tender Results Labs Labs: Short CBC 10/25/23 10/26/23 Range/Units 18:59 04:02 WBC 22.2 H 16.4 H (4.0-11.0) 10^3/uL Hgb 12.1 10.3 L (12.0-16.0) g/dL Hct 39.7 34.3 L (36.0-48.0) % Plt Count 489 H 420 (150-450) 10^3/uL BMP 10/25/23 10/26/23 18:53 04:02 Sodium 133 L 142 Potassium 3.8 3.5 Chloride 97 L 108 H Carbon Dioxide 32.8 H 30.5 BUN 19.0 H 17.0 Creatinine 1.24 H 1.01 Glucose 105 93 Calcium 8.8 8.3 L Liver Function 10/25/23 10/26/23 Range/Units 18:53 04:02 Total Bilirubin 0.2 0.2 (0.2-1.0) mg/dL Direct Bilirubin 0.1 (0.0-0.2) mg/dL AST 16 14 L (15-37) U/L ALT 26 21 (14-59) U/L Alkaline Phosphatase 108 90 (46-116) U/L Albumin 2.9 L 2.3 L (3.4-5.0) g/dL Urine 10/25/23 Range/Units 18:53 Urine Color Lt. yellow (YELLOW) Urine Clarity Clear (CLEAR) Urine pH 6.5 (5.0-9.0) Ur Specific [place] <=1.005 A (1.005-1.025) Urine Protein Negative (NEG/TRACE) mg/dL Urine Glucose (UA) Negative (NEGATIVE) mg/dL Assessment and Plan Assessment and Plan (1) Hypothyroidism: (2) Left lower lobe pneumonia: (3) Multiple falls: (4) Bradycardia: (5) Multiple rib fractures: Plan Respiratory distress with hypotension, liver function test elevation, thrombocythemia, mild hypoxia secondary to left lower lobe pneumonia, possibly multifocal pneumonia with some changes on the right side as well. Multiple rib fractures. Patient also appears to be somewhat dehydrated. Lactate negative. Start patient on IV antibiotics, aerosols-try to obtain sputum culture. Patient does meet SIRS criteria. Now with significant hypotension starting Levophed drip, she is on her second fluid bolus. Rib fractures-no pneumothorax-monitor pain control Leukocytosis secondary to the above Thrombocythemia secondary to the above Acute kidney injury secondary to dehydration-continue with fluid resuscitation Hypothyroidism-supplement Chronic hypotension-add Florinef to the midodrine The severity of illness-intensity of service-now on pressors, will maintain patient as inpatient status in the intensive care unit
[2023-10-26] MEDS: FLUDROCORTISONE ACETATE 0.1 MG TABLET PO (10:23)
[2023-10-26] MEDS: 0.9 % SODIUM CHLORIDE 1,000 ML 1000 ML IV ×2 (10:23→13:48)
--- NOTE | 2023-10-26 11:29 | SWNOTE1 ---
SW to assess dc needs. Pt was in room with crying and requested SW come back. Nursing was just in speaking with her in regards to a PICC line and that is why she is upset.
[2023-10-26] MEDS: IPRATROPIUM/ALBUTEROL SULFATE 3 ML AMPUL.NEB IH ×3 (11:48→22:12)
[2023-10-26] MEDS: ALPRAZOLAM 0.5 MG TABLET PO (12:03)
[2023-10-26] MEDS: TAMOXIFEN CITRATE 10 MG TABLET 20 MG PO (12:03)
[2023-10-26] MEDS: MIDODRINE HCL 5 MG TABLET 10 MG PO ×2 (12:04→17:39)
[2023-10-26 12:15] LABS: Glucometer 110 mg/dL (74-106)
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
[2023-10-26] MEDS: 0.9 % SODIUM CHLORIDE 1,000 ML 125 ML IV ×2 (13:08→21:07)
[2023-10-26] MEDS: LEVOFLOXACIN IN DEXTROSE 5 % 750 MG/150 ML IV.SOLN 100 MG IV (13:09)
[2023-10-26] MEDS: NOREPINEPHRINE BITARTRATE 4 MG in DEXTROSE 5 % IN WATER 250 ML 30.48 MG IV (13:48)
[2023-10-26] MEDS: LIOTHYRONINE SODIUM 5 MCG TABLET PO (13:51)
[2023-10-26 14:09] LABS: Glucometer 148 mg/dL (74-106)
[2023-10-26] MEDS: INSULIN ASPART 300 UNIT/3 ML PEN SUBQ ×2 (17:44→21:15)
[2023-10-26 17:49] LABS: Glucometer 244 mg/dL (74-106)
[2023-10-26] MEDS: POLYETHYLENE GLYCOL 3350 17 GM POWDER PACKET PO (19:51)
[2023-10-26] MEDS: ATORVASTATIN CALCIUM 40 MG TABLET 80 MG PO (21:07)
[2023-10-26] MEDS: ZOLPIDEM TARTRATE 5 MG TABLET 10 MG PO (21:07)
[2023-10-26 21:25] LABS: Glucometer 247 mg/dL (74-106)
[2023-10-27] VITALS (95 sets, daily range): BP systolic 95–123; BP diastolic 54–59; PULSE 56–84; RESP 10–32; TEMP 36.8–36.9; O2SAT 90–97
[2023-10-27] MEDS: PIPERACILLIN SODIUM/TAZOBACTAM 3.375 GM in 0.9 % SODIUM CHLORIDE 50 ML IV ×2 (00:10→07:40)
[2023-10-27] MEDS: OXYCODONE HCL/ACETAMINOPHEN 5MG/325MG 1 TAB PO ×3 (00:12→12:40)
[2023-10-27] MEDS: IPRATROPIUM/ALBUTEROL SULFATE 3 ML AMPUL.NEB IH ×2 (04:34→12:17)
[2023-10-27] MEDS: 0.9 % SODIUM CHLORIDE 1,000 ML 125 ML IV (05:35)
[2023-10-27] MEDS: LEVOTHYROXINE SODIUM 25 MCG TABLET 50 MCG PO (05:35)
[2023-10-27] MEDS: OMEPRAZOLE 40 MG CAPSULE.DR PO (05:35)
[2023-10-27 06:04] LABS: Basophils Percent Auto 0.2 % (0.2-2.0); Eosinophils Absolute Auto 0.2 10^3/uL (0.0-0.7); Eosinophils Percent Auto 1.6 % (0.9-7.0); Hematocrit 29.8 % (36.0-48.0); Hemoglobin 8.8 g/dL (12.0-16.0); Immature Granulocytes Abs Auto 0.18 10^3/uL (0.00-0.03); Immature Granulocytes Pct Auto 1.3 % (0.0-0.5); Lymphocytes Percent Auto 20.8 % (20.5-60.0); Mean Corpuscular HGB Conc 29.5 g/dL (29.9-35.2); Mean Corpuscular Hemoglobin 27.8 pg (26.7-34.0); Mean Platelet Volume 10.2 fL (9.5-13.5); Monocytes Absolute Auto 0.8 10^3/uL (0.3-0.8); Monocytes Percent Auto 5.4 % (1.7-12.0); Neutrophils Percent Auto 70.7 % (43.0-75.0); Platelet Count 348 10^3/uL (150-450); Red Blood Count 3.17 10^6/uL (4.20-5.40); Red Cell Distribution Width 16.4 % (11.0-15.0); White Blood Count 14.2 10^3/uL (4.0-11.0)
[2023-10-27 06:27] LABS: Alanine Aminotransferase 17 U/L (14-59); Albumin Globulin Ratio 0.6; Albumin Level 1.9 g/dL (3.4-5.0); Alkaline Phosphatase 84 U/L (46-116); Anion Gap 5.4; Aspartate Amino Transferase 10 U/L (15-37); BUN Creatinine Ratio 11.4; Bilirubin Total 0.2 mg/dL (0.2-1.0); Calcium 7.8 mg/dL (8.5-10.1); Carbon Dioxide 27.3 mmol/L (21.0-32.0); Chloride 109 mmol/L (98-107); Estimated GFR (African America >60 (>=60); Estimated GFR (Non-African Ame >60 (>=60); Glucose 120 mg/dL (74-106); Sodium 139 mmol/L (136-145); Total Protein 4.9 g/dL (6.4-8.2)
[2023-10-27 06:29] LABS: Potassium 2.7 mmol/L (3.5-5.1)
[2023-10-27 07:14] LABS: Glucometer 138 mg/dL (74-106)
[2023-10-27] MEDS: MIDODRINE HCL 5 MG TABLET 10 MG PO ×2 (07:40→11:49)
[2023-10-27] MEDS: METFORMIN HCL 500 MG TABLET PO (07:41)
[2023-10-27] MEDS: ENSURE HP 237 ML LIQUID PO (08:12)
[2023-10-27] MEDS: GABAPENTIN 300 MG CAPSULE 600 MG PO (08:12)
[2023-10-27] MEDS: TAMOXIFEN CITRATE 10 MG TABLET 20 MG PO (08:12)
[2023-10-27] MEDS: HEPARIN SODIUM (PORCINE) 5,000 UNIT/ML VIAL 5000 UNIT SUBQ (08:12)
[2023-10-27] MEDS: POTASSIUM CHLORIDE 10 MEQ ER TABLET 20 MEQ PO (08:12)
[2023-10-27] MEDS: POTASSIUM CHLORIDE 40 MEQ in 0.9 % SODIUM CHLORIDE 250 ML 67.5 MEQ IV (08:12)
[2023-10-27] MEDS: SENNOSIDES/DOCUSATE SODIUM 1 TAB TABLET PO (08:12)
[2023-10-27] MEDS: PROSTAT 15 GM PROTEIN/100 CAL 30 ML LIQUID PACKET PO (08:12)
[2023-10-27] MEDS: ASPIRIN 81 MG TAB.CHEW PO (08:13)
[2023-10-27] MEDS: LIOTHYRONINE SODIUM 5 MCG TABLET PO (08:13)
[2023-10-27] MEDS: FLUDROCORTISONE ACETATE 0.1 MG TABLET PO (08:13)
[2023-10-27] MEDS: CLOPIDOGREL BISULFATE 75 MG TABLET PO (08:13)
[2023-10-27] MEDS: CITALOPRAM HYDROBROMIDE 20 MG TABLET 40 MG PO (08:13)
--- NOTE | 2023-10-27 08:59 | P.DS_ITS ---
DS: Providers Provider Date of admission: 10/26/23 00:51 Primary care physician: IAM OQUENDO Consults: 10/26/23 09:00 Occupational Therapy Eval and Treat Routine Reason for consultation: Eval and treat; weakness; recent fall Has provider been notified: No Physical Therapy Eval and Treat Routine Reason for consultation: Eval and treat; Weakness; Recent fall Has provider been notified: No 10/26/23 09:31 Consult to Cash Application Representative Routine Reason for consult:: Home Health Other reason:: She agreed to get put on alist just in case Occupational Therapy Eval and Treat Routine Reason for consultation: Only if needed for Rehab Has provider been notified: No Physical Therapy Eval and Treat Routine Reason for consultation: Eval and Treat Has provider been notified: No DS: Diagnosis Discharge Diagnosis (1) Hypothyroidism: (2) Left lower lobe pneumonia: (3) Multiple falls: (4) Bradycardia: (5) Multiple rib fractures: Plan Respiratory distress with hypotension, liver function test elevation, thrombocythemia, mild hypoxia secondary to left lower lobe pneumonia, possibly multifocal pneumonia with some changes on the right side as well. Multiple rib fractures. Patient also appears to be somewhat dehydrated. Lactate negative. Start patient on IV antibiotics, aerosols-try to obtain sputum culture. Patient does meet SIRS criteria. Now with significant hypotension starting Levophed drip, she is on her second fluid bolus. Rib fractures-no pneumothorax-monitor pain control Leukocytosis secondary to the above Thrombocythemia secondary to the above Acute kidney injury secondary to dehydration-continue with fluid resuscitation Hypothyroidism-supplement Chronic hypotension-add Florinef to the midodrine DS: Summary Hospital Course Hospital Course: Patient presented to the emergency room after a fall. She is fallen twice in the last week. She has multiple rib fractures, eighth and ninth rib also showed fractures in 2 different locations. 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 Does not sound there is an abuse type of issue, yesterday patient had significant episodes of hypotension despite fluid boluses x 3. He was placed on Levophed. She tolerated that well initially but then was able to be tapered off of that. She has done well overnight. We did add Florinef to her midodrine. She states he has been taking her midodrine regularly. Faster than expected she did improve today. She feels back to her normal self and although I encouraged her with her recent hospitalization and failed outpatient treatment of her pneumonia she would benefit from staying an additional day for IV therapy she was wanting to try at home and if she deteriorates again she will return to emergency room. White blood cell count is better she does have significant hypokalemia today. Will give IV doses of that. Repeat lab before she goes home. Sent home with increasing oral dose. Medications see list. Follow-up with PCP next week. Time Spent with Patient Time attestation: Total time spent providing and/or coordinating discharge services: Exam Constitutional Vital Signs, click to edit/add: Last Vital Signs Temp 98.3 F 10/27/23 08:21 Pulse 65 10/27/23 08:00 Resp 14 10/27/23 07:20 BP 95/59 10/27/23 07:15 Pulse Ox 90 L 10/27/23 07:00 O2 Del Method Room Air 10/27/23 08:21 O2 Flow Rate 2 10/27/23 06:38 Common normals: apparent distress Respiratory Common normals: normal respiratory effort and no retractions Auscultation: diminished lung sounds Cardio Common normals: regular rate and regular rhythm GI Common normals: Normal to inspection, nondistended, normoactive bowel sounds present and soft to palpation; tender Palpation: tender DS: Data Data Completed and Pending Labs on day of discharge: Labs from last 24 hours 10/27/23 10/27/23 10/26/23 07:12 05:30 21:14 WBC 14.2 H RBC 3.17 L Hgb 8.8 L Hct 29.8 L MCV 94.0 MCH 27.8 MCHC 29.5 L RDW 16.4 H Plt Count 348 MPV 10.2 Neut % (Auto) 70.7 Lymph % (Auto) 20.8 [place] % (Auto) 5.4 Eos % (Auto) 1.6 Baso % (Auto) 0.2 Neut # (Auto) 10.0 H Lymph # (Auto) 3.0 [place] # (Auto) 0.8 Eos # (Auto) 0.2 Baso # (Auto) 0.0 Abs Immat Gran (auto) 0.18 H Imm/Tot Granulo (auto) 1.3 H Sodium 139 Potassium 2.7 L* Chloride 109 H Carbon Dioxide 27.3 Anion Gap 5.4 BUN 10.0 Creatinine 0.88 Est GFR ( Amer) >60 Est GFR (Non-Af Amer) >60 BUN/Creatinine Ratio 11.4 Glucose 120 H Calcium 7.8 L Total Bilirubin 0.2 AST 10 L ALT 17 Alkaline Phosphatase 84 Total Protein 4.9 L Albumin 1.9 L Globulin 3.0 Albumin/Globulin Ratio 0.6 POC Glucose 138 H 247 H 10/26/23 10/26/23 10/26/23 17:38 14:07 12:08 WBC RBC Hgb Hct MCV MCH MCHC RDW Plt Count MPV Neut % (Auto) Lymph % (Auto) [place] % (Auto) Eos % (Auto) Baso % (Auto) Neut # (Auto) Lymph # (Auto) [place] # (Auto) Eos # (Auto) Baso # (Auto) Abs Immat Gran (auto) Imm/Tot Granulo (auto) Sodium Potassium Chloride Carbon Dioxide Anion Gap BUN Creatinine Est GFR ( Amer) Est GFR (Non-Af Amer) BUN/Creatinine Ratio Glucose Calcium Total Bilirubin AST ALT Alkaline Phosphatase Total Protein Albumin Globulin Albumin/Globulin Ratio POC Glucose 244 H 148 H 110 H Discharge Plan Discharge Disposition: Home, Self-Care Condition: Fair Discharge Medications: New benzonatate 100 mg Capsule 200 mg PO Q8H PRN (Reason: Cough) Qty: 20 0RF fludrocortisone 0.1 mg Tablet 0.1 mg PO QD Qty: 30 11RF metformin 500 mg Tablet 500 mg PO BIDWM Qty: 60 11RF amoxicillin-pot clavulanate 875-125 mg tablet 1 tab PO Q12H Qty: 20 0RF Continued clopidogrel 75 mg tablet 75 mg PO DAILY midodrine 10 mg tablet 10 mg PO TID nitroglycerin 0.4 mg tablet, sublingual 0.4 mg sublingual Q5M PRN (Reason: chest pain) zolpidem 5 mg tablet 10 mg PO .HS PRN (Reason: sleep) alprazolam 1 mg tablet 1 mg PO TID PRN (Reason: anxiety) oxycodone-acetaminophen 7.5-325 mg tablet 1 tab PO Q8H PRN (Reason: pain) morphine 15 mg tablet extended release 10 mg PO Q12H pantoprazole 40 mg tablet,delayed release (DR/EC) 40 mg PO DAILY potassium chloride 10 mEq capsule, extended release 10 meq PO BID atorvastatin 80 mg tablet 80 mg PO DAILY citalopram 40 mg tablet 40 mg PO DAILY gabapentin 600 mg tablet 600 mg PO BID metformin 500 mg tablet 500 mg PO BID aspirin 81 mg tablet,chewable 81 mg PO DAILY tamoxifen 20 mg tablet 20 mg PO DAILY Forms: Portal Instructions
--- NOTE | 2023-10-27 09:41 | CM.NOTE ---
Rounds made with Dr. Weaver. Ms. Geiger states she feels much better this am. Dr. Weaver would like to see how she does with meal, repleat her K+ and have Orly ambulate before a potential discharge to home. Orly in agreement and verbalizes understanding.
[2023-10-27 11:04] LABS: Glucometer 211 mg/dL (74-106)
--- NOTE | 2023-10-27 11:23 | SWNOTE1 ---
SW spoke to pt in regards to discharge needs. Pt does live at home with her . She voiced her daughter is also staying and is her right hand man. Pt voiced she is feeling better today and is up and sitting in chair. Pt has a walker at home if needed. SW offered home health for pt, but at this time pt refuses. Pt denies any discharge needs and again voices she is safe at home. SW spoke with pt's in hallway and he voiced that she needs home health and if not home health then needs to go to [facility]. SW expressed to pt's that pt is alert and oriented and able to make own decisions. Physical therapy was going to work with pt again and SW will come back after therapy and attempt to offer home health again. Pt's voiced it is hard for him to help her due to his own health and hips. SW received call from physical therapy and pt did very well. Pt walked 2 laps with just IV pole and was likely at baseline. SW to speak with pt and again.
--- NOTE | 2023-10-27 11:44 | PT.DAILY ---
Physical Therapy Daily Note PT Daily Note/Assess Start: 10/27/23 11:29 Freq: Status: Active Protocol: Document 10/27/23 11:10 GELA (Rec: 10/27/23 11:38 GELA [id number]) Physical Therapy Daily Note/Assessment Time In/Time Out Time In 11:09 Time Out 11:20 Subjective Subjective Patient reports feeling much better. Per nursing as long as patient is able to ambulate safely plan for DC home today. Patient reports has been up in room with IV poll. Complaints of rib pain at 4-. Denies dizziness. Again reports feeling well. Therapeutic Activity Time Therapeutic Activity Minutes (minutes) 10 Therapeutic Activity Units 1 Therapeutic Activity Treatment Chair Transfer Ability Independent Therapeutic Activity Comments Patient was ind. with sit to stand transfers. Gait with finger tap on IV poll 150 ft. with supervision. No LOB noted. Does reports some increase in rib pain, states; I will probably use my walker for a few days at home until my rib pain is down. Total Physical Therapy Time Total Therapy Minutes 10 Total Physical Therapy Units 1 Summary Daily Note Summary Overall patient is much approved and appears to be close to her own baseline. Significant improvement with gait and transfer ability today. Did discuss HH with patient, but patient declines. Also discussed that if patient is still not feeling 100 percent in a few days the benefits of OP PT, patient listens and verbalizes understanding, states she will think about it.
--- NOTE | 2023-10-27 12:19 | SWNOTE1 ---
SW spoke with pt and in room and let them both know that pt did very well with therapy. SW offered home health again, pt still refused. SW let her know if she changes her mind to reach out to her PCP.
[2023-10-27 12:42] LABS: Anion Gap 11.5; BUN Creatinine Ratio 9.3; Calcium 7.6 mg/dL (8.5-10.1); Carbon Dioxide 26.7 mmol/L (21.0-32.0); Chloride 108 mmol/L (98-107); Estimated GFR (African America >60 (>=60); Estimated GFR (Non-African Ame >60 (>=60); Glucose 194 mg/dL (74-106); Potassium 4.2 mmol/L (3.5-5.1); Sodium 142 mmol/L (136-145)
--- NOTE | 2023-10-27 13:10 | PC.NURSE ---
attempt made to contact [facility] for pts hospital follow up appt. no answer, states office is closed. pt instructed to follow up within one week and phone number provided.
--- NOTE | 2023-10-27 13:44 | PC.NURSE ---
discharge instructions given to pt, verbalized understanding. taken to exit via wheelchair, discharged to private vehicle.
--- NOTE | 2023-10-30 15:38 | CM.DCFOLLOWU ---
Person spoke with: Karrie How are you feeling? Still very tired How is your pain? Still rib pain Did you understand your discharge instructions? Yes Do you have any questions about your discharge instructions? No Were you given any prescriptions at discharge? Yes Were you able to get your prescriptions filled? Yes Do you understand how to take your medications as ordered? Yes Do you have any questions about your follow up appointment and do you plan to keep your follow up appointment? It is scheduled for and I am going Is there anything else that you would like to discuss? No Questions/Comments/Concerns/Other:
== END 2023-10-27 13:35 | disposition home or self-care (01) | DRG 194 ==
LOC: ER 10-26 00:36 → ICU 10-26 00:52
PROVIDERS: Emergency Medicine Emergency Medical Services; Registered Nurse; Admitting Provider Family Medicine; Emergency Provider Emergency Medicine; PCP Family Medicine; Visit Provider Family Medicine
DX: J18.9 Pneumonia, unspecified organism (principal); N17.9 Acute kidney failure, unspecified; E03.9 Hypothyroidism, unspecified; S22.49XD Multiple fractures of ribs, unspecified side, subsequent encounter for fracture with routine healing; R29.6 Repeated falls; R00.1 Bradycardia, unspecified; I95.89 Other hypotension; R94.5 Abnormal results of liver function studies; D69.6 Thrombocytopenia, unspecified; R06.03 Acute respiratory distress; R09.02 Hypoxemia; E86.0 Dehydration; I25.10 Atherosclerotic heart disease of native coronary artery without angina pectoris; I48.91 Unspecified atrial fibrillation; F32.A Depression, unspecified; M25.522 Pain in left elbow; C50.919 Malignant neoplasm of unspecified site of unspecified female breast; F17.200 Nicotine dependence, unspecified, uncomplicated; Z91.81 History of falling; Z95.5 Presence of coronary angioplasty implant and graft; Z90.710 Acquired absence of both cervix and uterus; Z86.16 Personal history of COVID-19; Z98.84 Bariatric surgery status; Z79.84 Long term (current) use of oral hypoglycemic drugs; Z79.02 Long term (current) use of antithrombotics/antiplatelets; Z79.82 Long term (current) use of aspirin; Z79.899 Other long term (current) drug therapy; Z90.49 Acquired absence of other specified parts of digestive tract
CPT/HCPCS: 36415; 36569; 36592; 71045; 71275; 74177; 80048; 80053; 80076; 81003; 82948; 83605; 83735; 83880; 84436; 84443; 84481; 84484; 85025; 87040; 87070; 87635; 87804; 87811; 93005; 94640; 94667; 94668; 94761; 96361; 96365; 96366; 96368; 96372; 96375; 97162; 97165; 97530; 99285; C1887; G0328; J2405; J2543; J3480; Q9967

== ENCOUNTER 2023-11-08 21:12 | Inpatient (IN) | payer OTHER, SELFPAY ==
[2023-11-08] VITALS (21 sets, daily range): BP systolic 78–100; BP diastolic 48–53; PULSE 76–97; RESP 10–24; TEMP 37.8; O2SAT 83–97
--- NOTE | 2023-11-08 21:23 | ECG_ITS ---
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
--- NOTE | 2023-11-08 21:23 | XR_ITS ---
The [address] [address] Patient Name: HONEY MONTES MRN: [id number] date: 1960 Sex: F Assigned Patient Location: ED.MAIN Current Patient Location: ER Accession/Order Number: [id number] Exam Date: 11/08/2023 21:40 Report Date: 11/08/2023 21:55 At the request of: BRADLEY LEIGH Procedure: XR chest 1V EXAM: XR chest 1V HISTORY: SOB COMPARISON: 10/25/2023 TECHNIQUE: Single view of the chest FINDINGS: Moderate left pleural effusion. Interstitial prominence diffusely. Atelectasis and consolidation at the left mid to lower lung. No pneumothorax. Unchanged cardia mediastinal silhouette. Multiple external leads. XR/XR chest 1V IMPRESSION: Moderate left pleural effusion with adjacent atelectasis/consolidation. Pulmonary vascular congestion. Electronically authenticated by: LAURIE RUFFIN Date: 11/08/2023 21:55
--- OUTSIDE RECORDS SUMMARY | 2023-11-08 21:23 | XMS_ITS | CCD ---
Author Name Unknown Address [id number] [place] [address] Organization [facility] Care Team Providers Care Cornice Upholsterer Name Role Phone Corina Cook MD Primary Care Provider [phone] SHEY FARR Attending Unavailable CAMDEN FAROOQ Consulting Unavailable RUBEN WINKLER Admitting Unavailable CORINA COOK Primary Care Unavailable RAYA, JALEEL Admitting Unavailable TANIYA ORLANDO Consulting Unavailable PRANEETH MATA I Attending Unavailable RAGHAVENDRA NEGRETE Referring Unavailable CORINA COOK Primary Care Unavailable MOHSEN SHAW Consulting Unavailable RUBEN WINKLER Admitting Unavailable RUBEN WINKLER Attending Unavailable JOSEPH GUADALUPE Consulting Unavailable CORINA COOK Primary Care Unavailable MISC, DR CRAVEN Consulting Unavailable JERE, DR CORINA Lawler Primary Care Unavailable MISC, DR CRAVEN Attending Unavailable MISC, DR CRAVEN Admitting Unavailable Corina Cook MD Primary Care Provider [phone] MD Jr Sinha Attending Provider NON STAFF Primary Care Provider Unavailswetha rosa NON STAFF Primary Care Unavailable Jr Sinha Attending Unavailable Jr Sinha Admitting Unavailable CORINA COOK Primary Care Unavailable ROSANA MCHUGH Referring Unavailable RUBEN DAVIS Attending Unavailable JR SINHA Referring Unavailable CORINA COOK Primary Care Unavailable ROSANA MCHUGH Attending Unavailable JR SINHA Referring Unavailable CORINA COOK Primary Care Unavailable JR SINHA Attending Unavailable Corina Cook MD Primary Care Provider [phone] CORINA COOK Primary Care Unavailable RAGHAVENDRA NEGRETE Attending Unavailable COOK, CORINA A Referring Unavailable CORINA COOK Primary Care Unavailable RAGHAVENDRA NEGRETE Attending Unavailable RAGHAVENDRA NEGRETE Referring Unavailable CORINA COOK Primary Care Unavailable RAGHAVENDRA NEGRETE Attending Unavailable RAGHAVENDRA NEGRETE Referring Unavailable SUKH COOKHER Nuris Primary Care Unavailable CORINA COOK Primary Care Unavailable TOMY GOMEZ Attending Unavailable TYREE CROOK Admitting Unavailable RICCI AGUIRRE Attending Unavailable RICCI AGUIRRE Referring Unavailable CORINA COOK Primary Care Unavailable Medications Current Medications Medication Drug Class(es) Dates Sig (Normalized) Sig (Original) acetaminophen 325 mg oral tablet (5 sources) Start: 10-20-2023 take 1 tablet by mouth every four hours as needed for headache and pain acetaminophen (TYLENOL) tablet 650 mg Start: 06-14-2022 take 650 mg by mouth every four hours as needed, then take 4000 mg by mouth every twenty-four hours as needed 650 mg, Oral, EVERY 4 HOURS PRN, Starting on Mon06/14/22 at 1806, Until Discontinued, Pain Mild (1-3), Fever, Fever >100.5 F (38 C) Maximum dose of acetaminophen is 4000 mg from all sources in 24 hours. Recovery(Cath) Start: 06-12-2022 acetaminophen (TYLENOL) tablet 650 mg Start: 06-11-2022 1,000 mg, Oral , EVERY 8 HOURS PRN, Starting on 06/11/22 at 0245, Until Discontinued, Pain Mild (1-3), Pain Mild (1-3) or Fever greater than 100.5 F (38 C) If acetaminophen and ibuprofen are both ordered PRN for mild pain, may administer together. Start: 04-26-2022 650 mg, Oral, EVERY 4 HOURS PRN, Starting on Mon04/26/22 at 0014, Until Discontinued, Pain Mild (1-3), Pain Mild (1-3) or Fever greater than 100.5 F (38 C) If acetaminophen and ibuprofen are both ordered PRN for mild pain, may administer together. acetaminophen 325 mg / oxyCODONE hydrochloride 5 mg oral tablet (20 sources) Opioid Agonist Start: 10-18-2023 End: 10-21-2023 1 tablet, oral, 3 times renea y PRN, moderate pain - pain scale 4-6, severe pain - pain scale 7-10, Starting on Mon10/20/23 at 0159, Look-alike/sound-alike medication - verify indication for use. Start: 06-13-2022 oxyCODONE-acet aminophen (PERCOCET) 5-325 MG per tablet 1 tablet Start: 06-11-2022 oxyCODONE-acet aminophen (PERCOCET) 5-325 MG per tablet 1 tablet take 1 tablet by hunter th every eight hours as needed oxyCODONE-acetaminophen (PERCOCET) 5-325 mg tablet Take 1 tablet by mouth three times daily as needed. 0 Active take 1 tablet by hunter th every twelve hours as needed oxyCODONE-acetaminophen (PERCOCET) 7.5-3 25 mg tablet Take 1 tablet by mouth every 12 hours as needed for pain. 0 Active take 1 tablet by hunter th every eight hours as needed for pain oxyCODONE-acetaminophen (PERCOCET) 7.5-3 25 MG per tablet Take 1 tablet by mouth every 8 hours as needed for Pain. 0 Active take 1 tablet by hunter th every four hours as needed for pain oxyCODONE-acetaminophen (PERCOCET) 7.5-3 25 MG per tablet Take 1 tablet by mouth every 4 hours as needed for Pain. 0 Active Comment on above: Take 1 tablet by hunter th three times daily as needed. Take 1 tablet by hunter th every 12 hours as needed for pain. albuterol 0.833 mg/ml / ipratropium bromide 0.167 mg/ml inhalation solution (1 source) Anticholinergic, beta2-Adrenergic Agonist Start: 10-20-19 take 3 mL by inhalation every four hours as needed for wheezing ipratropium-albute roL (DUONEB) 0.5 mg-3 mg(2.5 mg base)/3 mL nebulizer solution 3 mL ALPRAZolam 0.5 mg oral tablet (18 sources) Benzodiazepine Start: 10-20-19 take 1 mg by mouth three times daily 1 mg, oral, 3 times daily, First dose on Mon10/20/23 at 0800, Look-alike/sound-a like medication - verify indication for use. Start: 06-11-2022 take 1 mg by mouth t hree times daily 1 mg, Oral, 3 TIMES DAILY, First dose on Mon06/13/22 at 0900, Until Discontinued Start: 04-26-2022 take 1 mg by mouth t hree times daily 1 mg, Oral, 3 TIMES DAILY, First dose on Mon04/26/22 at 0900, Until Discontinued Comment on above: Take 1 mg by mouth. aluminum hydroxide 40 mg/ml / magnesium hydroxide 40 mg/ml / simethicone 4 mg/ml oral suspension (1 source) Start: 10-20-19 alum-mag hydroxide-simeth (MAALOX) 200-200-20 mg/5 mL suspension 30 mL amiodarone hydrochloride 200 mg oral tablet (3 sources) Antiarrhythmic Start: 10-20-19 take 200 mg by mouth once daily 200 mg, oral, Daily, First dose on Mon10/20/23 at 0900, Look-alike/sound-a like medication - verify indication for use. amLODIPine 5 mg oral tablet (2 sources) Dihydropyridine Calcium Channel Zenon Start: 06-15-20 take 1 tablet by mouth once daily amLODIPine (NORVASC) 5 MG tablet Take 1 tablet by mouth nightly 30 tablet 3 06/15/2022 Active Start: 06-14-2022 amLODIPine (NO RVASC) tablet 5 mg aspirin 81 mg delayed release oral tablet (8 sources) Platelet Aggregation Inhibitor, Nonsteroidal Anti-inflammatory Drug Start: 10-20-2023 take 81 mg by mouth once daily 81 mg, oral, Daily, First dose on Mon10/20/23 at 0900, Do not crush or chew. Start: 06-13-2022 aspirin chewab le tablet 81 mg Start: 06-10-2022 End: 06-10-2022 aspirin chewable tablet 243 mg Comment on above: Take 81 mg by mouth. atorvastatin 40 mg oral tablet (18 sources) HMG-CoA Reductase Inhibitor Start: 10-20-2023 take 80 mg by mouth once daily 80 mg, oral, Daily, First dose on Mon10/20/23 at 0900, Look-alike/sound-al racheal medication - verify indication for use. Start: 06-13-2022 atorvastatin ( LIPITOR) tablet 80 mg Start: 06-11-2022 take 80 mg by mouth once daily 80 mg, Oral, DAILY, First dose on Mon06/11/22 at 2100, Until Discontinued Start: 03-28-2018 take 1 tablet by hunter th once daily atorvastatin (LIPITOR) 80 MG tablet Take 1 tablet by mouth nightly 30 tablet 3 03/28/2018 Active Comment on above: Take 80 mg by mouth once daily. Benzocaine / Tetracaine (2 sources) Joan Local Anesthetic, Standardized Chemical Allergen Start: 08-08-2017 ONETOUCH ULTRA2 kit USE UTD 0 08/08/2017 Active Start: 08-08-2017 XanodyneTOUCH ULTRA 2 kit USE UTD 0 08/08/2017 citalopram 20 mg oral tablet (18 sources) Serotonin Reuptake Inhibitor Start: 10-20-2023 take 20 mg by mouth twice daily 20 mg, oral, 2 times daily, First dose on Mon10/20/23 at 0215, Look-alike/sound-alike medication - verify indication for use. Start: 04-26-2022 take 20 mg by mouth once daily 20 mg, Oral, NIGHTLY, First dose on Mon06/13/22 at 2100, Until Discontinued Comment on above: Take 20 mg by mouth once daily. clopidogrel 75 mg oral tablet (18 sources) P2Y12 Platelet Inhibitor Start: 10-20-2023 take 75 mg by mouth once daily 75 mg, oral, Daily, First dose on Mon10/20/23 at 0900, Look-alike/sound-ali ke medication - verify indication for use. Start: 06-13-2022 take 75 mg by mouth once daily 75 mg, Oral, DAILY, First dose on Mon06/13/22 at 0900, Until Discontinued Start: 06-11-2022 take 75 mg by mouth once daily 75 mg, Oral, DAILY, First dose on Mon06/11/22 at 0900, Until Discontinued Start: 04-26-2022 take 75 mg by mouth once daily 75 mg, Oral, DAILY, First dose on Mon04/26/22 at 0900, Until Discontinued take 1 tablet by hunter th in the morning clopidogreL (PLAVIX) 75 mg tablet Take 1 tablet (75 mg total) by mouth in the morning. 0 Active Comment on above: Take 75 mg by mouth once daily. dexamethasone 6 mg oral tablet (3 sources) Corticosteroid Start: End: take 1 tablet by mouth once daily at breakfast dexAMETHasone (DECADRON) 6 mg tablet Take 1 tablet (6 mg total) by mouth daily with breakfast for 7 days. 7 tablet 0 10/21/2023 10/28/2023 Active Start: 10-20-2023 dexAMETHasone (DECADRON) injection 6 mg docusate sodium 50 mg / sennosides, retirement 8.6 mg oral tablet (1 source) Start: 10-20-2023 take 1 tablet by mouth every twelve hours as needed for constipation sennosides-docusate sodium (SENOKOT-S) 8.6-50 mg 1 tablet 0.4 ml enoxaparin sodium 100 mg/ml prefilled syringe (3 sources) Low Molecular Weight Heparin Start: 10-20-2023 enoxaparin (LOVENOX) syringe 40 mg Start: 06-13-2022 enoxaparin (LO VENOX) injection 40 mg Start: 06-11-2022 inject 40 mg by subc utaneous injection once daily 40 mg, SubCUTAneous, DAILY, First dose on 06/11/22 at 0900, Until Discontinued Indication of Use: Prophylaxis-DVT/PE ferrous sulfate 325 mg delay ed release oral tablet (11 sources) Start: 06-15-2022 ferrous sulfat e (FE TABS 325) EC tablet 325 mg End: 10-20-2023 take 1 tablet by mouth once daily at breakfast ferrous sulfate 325 (65 FE) mg tablet Take 1 tablet (325 mg total) by mouth daily with breakfast. 0 10/20/2023 Discontinued (Therapy completed) End: 06-10-2022 take 1 tablet by mouth three times daily at mealtime ferrous sulfate (FE TABS 325) 325 (65 Fe) MG EC tablet Take 325 mg by mouth 3 times daily (with meals) 0 06/10/2022 Discontinued (LIST CLEANUP) Comment on above: Take 325 mg by mouth daily with breakfast. gabapentin 300 mg oral capsule (20 sources) Anti-epileptic Agent Start: 10-20-2023 take 300 mg by mouth twice daily 300 mg, oral, 2 times daily, First dose on Mon10/20/23 at 0215, Look-alike/sound-ali ke medication - verify indication for use. Start: 06-13-2022 take 600 mg by mouth once renea y 600 mg, Oral, NIGHTLY, First dose on Mon06/13/22 at 2100, Until Discontinued Start: 06-13-2022 take 300 mg by mouth twice daily 300 mg, Oral, 2 TIMES DAILY, First dose on 06/13/22 at 0800, Until Discontinued Start: 06-11-2022 take 600 mg by mouth once renea y 600 mg, Oral, Nightly, First dose on 06/11/22 at 2100, Until Discontinued Start: 04-26-2022 take 300 mg by mouth twice daily 300 mg, Oral, 2 TIMES DAILY, First dose on Tu04/26/22 at 0800, Until Discontinued Start: 02-21-2018 take 1 capsule by mo [facility] in the morning, then take 1 capsule by mouth at bedtime gabapentin (NEURONTIN) 300 mg capsule Take 1 capsule (300 mg total) by mouth in the morning and 1 capsule (300 mg total) before bedtime. 2 02/21/2018 Active take 1 tablet by hunter th three times daily gabapentin (NEURONTIN) 600 mg tablet Take 600 mg by mouth three times daily. 0 Active End: 06-15-2022 gabapentin (NEURONTIN) 600 M G tablet Take 600 mg by mouth nightly.. 0 06/15/2022 Discontinued (Stop Taking at Discharge) Comment on above: Take 600 mg by mouth three times daily. glucagon (rdna) 1 mg injection (2 sources) Antihypoglycemic Agent Start: 10-20-2023 glucagon HCL injection 1 mg Start: 06-12-2022 glucagon (rDNA ) injection 1 mg 150 ml glucose 50 mg/ml injection (6 sources) Start: 10-20-2023 dextrose (GLUT OSE) 40 % gel 15 g Start: 10-20-2023 dextrose 50 % in water (D50W) 50% solution 25 mL Start: 10-20-2023 dextrose 5 % ( D5W) infusion Start: 06-12-2022 dextrose 10 % infusion Start: 06-12-2022 dextrose bolus 10% 125 mL Start: 06-12-2022 glucose chewab le tablet 16 g insulin lispro 100 unt/ml injectable solution (2 sources) Insulin Analog Start: 06-13-2022 insulin lispro (HUMALOG) injection vial 0-4 Units magnesium hydroxide 80 mg/ml oral suspension (1 source) Start: 06-12-2022 magnesium hydr oxide (MILK OF MAGNESIA) 400 MG/5ML suspension 30 mL 50 ml magnesium sulfate 40 mg/ml injection (4 sources) Start: 10-20-2023 magnesium sulf ate IVPB 2000 mg/50 mL in iso-osmotic water (40 mg/mL premix) Start: 10-20-2023 magnesium sulf ate IVPB 4000 mg/100 mL in iso-osmotic water (40 mg/mL premix) Start: 06-12-2022 magnesium sulf ate 1000 mg in dextrose 5% 100 mL IVPB Start: 06-10-2022 End: 06-11-2022 magnesium sulfate 2000 mg in 50 mL IVPB premix 24 hr metoprolol succinate 25 mg extended release oral tablet (17 sources) beta-Adrenergic Zenon Start: 10-20-2023 take 25 mg by mouth once daily 25 mg, oral, Daily, First dose on Mon10/20/23 at 0900, Look-alike/sound-alike medication - verify indication for use. Do not crush or chew. Start: 06-15-2022 take 1 tablet by hunter th twice daily metoprolol tartrate (LOPRESSOR) 25 MG tablet Take 1 tablet by mouth 2 times daily 60 tablet 3 06/15/2022 Active Start: 06-13-2022 End: 06-15-2022 take 25 mg by mouth twice daily 25 mg, Oral, 2 TIMES D AILY, First dose on Mon06/13/22 at 0900, Until Discontinued Hold if sbp<95, hr<55 Start: 04-26-2022 take 25 mg by mouth twice renea y 25 mg, Oral, 2 TIMES DAILY, First dose on Mon04/26/22 at 0015, Until Discontinued take 1 tablet by hunter th every twenty-four hours in the morning metoprolol succinate XL (TOPROL XL) 25 mg 24 hr tablet Take 1 tablet (25 mg total) by mouth in the morning. 0 Active Comment on above: Take 25 mg by mouth twice daily. midodrine hydrochloride 5 mg oral tablet (16 sources) alpha-Adrenergic Agonist Start: 10-20-2023 take 10 mg by mouth twice daily 10 mg, oral, 2 times daily, First dose on Mon10/20/23 at 0215, Look-alike/sound-ali ke medication - verify indication for use. Start: 06-13-2022 10 mg, Oral, 3 TIMES DAILY WITH MEALS, First dose on Mon06/13/22 at 0800, Until Discontinued Do not give after 1800 or within 4 hrs of bedtime. Start: 06-11-2022 10 mg, Oral, 3 TIMES DAILY, First dose on Mon06/11/22 at 0900, Until Discontinued Do not give after 1800 or within 4 hrs of bedtime. take 1 tablet by hunter twice daily midodrine (PROAMATINE) 10 mg tablet Take 1 tablet (10 mg total) by mouth 2 (two) times a day. 0 Active take 1 tablet by hunter three times daily midodrine (PROAMITINE) 5 mg tablet Take 5 mg by mouth three times daily. 0 Active End: 06-15-2022 take 2 tablets by mouth three times daily midodrine (PROAMATINE) 5 MG tablet Take 10 mg by mouth 3 times daily 0 06/15/2022 Discontinued (Stop Taking at Discharge) take 4 tablets by [facility] three times daily midodrine (PROAMATINE) 2.5 MG tablet Take 10 mg by mouth 3 times daily 0 Active Comment on above: Take 5 mg by mouth t hree times daily. morphine sulfate 15 mg extended release oral tablet (17 sources) Opioid Agonist Start: 10-20-2023 morphine (MS CONTIN) 12 hr tablet 15 mg Start: 06-13-2022 take 30 mg by mouth twice renea y 30 mg, Oral, 2 times daily, First dose on Mon06/13/22 at 0900, Until Discontinued Do not crush or break. Start: 06-10-2022 End: 06-10-2022 take 4 mg by mouth every four hours as needed 4 mg, IntraVENous, EVERY 4 HOURS PRN, Starting on Mon06/10/22 at 2250, Until Discontinued, Pain Severe (7-10) If oral and IV narcotics ordered, use oral first and only use IV if oral is ineffective or cannot take oral. Do Not give oral and IV within 1 hour of each other unless specifically ordered. Start: 09-22-2020 take 1 capsule by mo [facility] twice daily morphine ER (ALLYSSA) 30 mg 24 hr capsule Take 30 mg by mouth twice daily. 0 09/22/2020 Active take 10 mg by mouth in the morning morphine sulfate (MORPHINE ORAL) Take 10 mg by mouth in the morning and 10 mg before bedtime. 0 Active Comment on above: Take 30 mg by mouth twice daily. naloxegol 25 mg oral tablet (13 sources) Opioid Antagonist Start: 1 End: 3 take 1 tablet by mouth once daily naloxegol (MOVANTIK) 25 mg tablet Take 1 tablet by mouth once daily. 30 tablet 2 07/11/2023 10/09/2023 Active Comment on above: Take 1 tablet by hunter th once daily. naloxone hydrochloride 40 mg/ml nasal spray (2 sources) Opioid Antagonist Start: 4 naloxone (NARCAN) 4 mg/actuation spray,non-aerosol nasal spray Administer 1 spray (4 mg total) into alternating nostrils as needed for opioid reversal. 0 10/18/2023 Active naphazoline hydrochloride 0.25 mg/ml / pheniramine maleate 3 mg/ml ophthalmic solution (2 sources) End: 2 take 1 drop(s) into the eye(s) four times daily naphazoline-pheniram ine (NAPHCON-A) 0.025-0.3 % ophthalmic solution Place 1 drop into both eyes 4 times daily 0 06/15/2022 Discontinued (Stop Taking at Discharge) 24 hr nicotine 0.875 mg/hr transdermal system (3 sources) Cholinergic Nicotinic Agonist Start: 4 nicotine (NICODERM CQ) 21 mg/24 hr 1 patch Start: 03-29-2018 End: 06-15-2022 apply 1 dose transdermal route once daily nicotine (NICODERM CQ) 14 MG/24HR Place 1 patch onto the skin daily 30 patch 3 03/29/2018 06/15/2022 Discontinued (Stop Taking at Discharge) omeprazole 20 mg delayed release oral capsule (2 sources) Proton Pump Inhibitor take 1 capsule by mouth once daily omeprazole (PRILOSEC) 20 MG delayed release capsule Take 20 mg by mouth daily 0 Active 2 ml ondansetron 2 mg/ml injection (2 sources) Serotonin-3 Receptor Antagonist Start: 10-20-19 24 take 4 mg intravenously every four hours as needed for nausea and vomiting ondansetron (PF) (ZOFRAN) injection 4 mg Start: 06-10-2022 End: 06-10-2022 ondansetron (ZOFRAN) injecti on 4 mg ondansetron (ZOFRAN-ODT) disintegrating tablet 4 mg (3 sources) Start: 06-12-2022 ondansetron (Z OFRAN-ODT) disintegrating tablet 4 mg Start: 06-11-2022 ondansetron (Z OFRAN-ODT) disintegrating tablet 4 mg Start: 04-26-2022 ondansetron (Z OFRAN-ODT) disintegrating tablet 4 mg pantoprazole 40 mg delayed release oral tablet (12 sources) Proton Pump Inhibitor Start: 10-20-2023 40 mg, oral, Daily, First dose on Mon10/20/23 at 0900, Look-alike/sound-alike medication - verify indication for use. If patient is receiving enteral feeding, consider alternative PPI or continue IV pantoprazole until the delayed-release tablet can be taken orally, Indication: GERD Start: 06-13-2022 take 40 mg by mouth twice daily before mealtime 40 mg, Oral, 2 TIMES DAILY BEFORE MEALS, First dose on 06/13/22 at 0700, Until Discontinued Substituted for pantoporazole (PROTONIX) granules. Start: 06-11-2022 take 40 mg by mouth once daily before breakfast 40 mg, Oral, DAILY BEFORE BREAKFAST, First dose on 06/11/22 at 0700, Until Discontinued Do not crush or break. Substituted for Omeprazole (PRILOSEC). End: 06-15-2022 take 40 mg by mouth once daily before breakfast pantoprazole sodium (PROTONIX) 40 MG PACK packet Take 40 mg by mouth every morning (before breakfast) 0 06/15/2022 Discontinued (Stop Taking at Discharge) End: 06-11-2022 inject 40 mg intravenously once daily pantoprazole (PROTONIX) 40 MG injection Infuse 40 mg intravenously daily 0 06/11/2022 Discontinued (LIST CLEANUP) Comment on above: Take 40 mg by mouth once daily. perflutren lipid microsphere s (DEFINITY) injection 1.65 mg (1 source) Start: 06-12-2022 perflutren lipid microspheres (DEFINITY) injection 1.65 mg microencapsulated potassium chloride 10 meq extended release oral tablet (13 sources) Start: 10-20-2023 10 mEq, oral, 2 times daily, First dose on Mon10/20/23 at 0215, Do not crush or chew. Start: 10-20-2023 potassium chlo ride (K-TAB,KLOR-CON) CR tablet 30-50 mEq Start: 10-19-2023 End: 10-19-2023 potassium chloride (KLOR-CON M 20) CR tablet 40 mEq Start: 06-13-2022 10 mEq, Oral, DAILY, First dose on Mon06/13/22 at 0900, Until Discontinued Do not crush or break. Start: 06-12-2022 potassium chlo ride (KLOR-CON M) extended release tablet 40 mEq Start: 06-10-2022 End: 06-10-2022 potassium chloride (KLOR-CON M) extended release tablet 40 mEq take 1 tablet by hunter th twice daily at mealtime potassium chloride (K-TAB) 10 mEq tablet Take 1 tablet twice a day by oral route with meals. 0 Active Comment on above: Take 1 tablet twice a day by oral route with meals. remdesivir (VEKLURY) 100 mg in sodium chloride 0.9 % 250 mL IVPB (1 source) Start: 10-21-19 End: 10-25-19 take 100 mg intravenously every twenty-four hours remdesivir (VEKLURY) 100 mg in sodium chloride 0.9 % 250 mL IVPB sertraline 50 mg oral tablet (3 sources) Serotonin Reuptake Inhibitor Start: 04-26-20 take 50 mg by mouth once daily 50 mg, Oral, DAILY, First dose on Mon04/26/22 at 0900, Until Discontinued End: 06-15-2022 take 1 tablet by mouth once daily sertraline (ZOLOFT) 50 MG tablet Take 50 mg by mouth daily 0 06/15/2022 Discontinued (Stop Taking at Discharge) 1000 ml sodium chloride 9 mg /ml injection (18 sources) Start: 10-19-2023 End: 10-19-2023 sodium chloride 0.9 % infusi on Start: 10-19-2023 sodium chlorid e 0.9 % flush 3 mL Start: 06-14-2022 take 1 dose intraven ously twice daily 5-40 mL, IntraVENous, EVERY 12 HOURS SCHEDULED (2 times per day), First dose on Mon06/14/22 at 2100, Until Discontinued For Line Patency: Peripheral IV = 5 mL; Midline or Central Line = 10 mL/lumen. If following IV push medication, administer flush at same rate as the IV push. Flush volume is determined by type of infusion therapy being given. For non-viscous solutions use: Peripheral IV = 5 mL Midline or Central Line = 10 mL/lumen For viscous solutions (i.e. blood components, parenteral nutrition, contrast media, or after obtaining blood sample) use: Peripheral IV = 10 mL Midline or Central Line = 20 mL/lumen Recovery(Cath) Start: 06-14-2022 IntraVENous, a t 5-250 mL/hr, PRN, if patient receiving piggyback infusions and maintenance fluids are not ordered OR KVO fluids to protect IV site / prevent frequent line interruptions/ long duration, Starting on Mon06/14/22 at 1806 For piggyback infusion, administer at same rate as piggyback for a total of 25 mL. Enter 25 mL into dose field and piggyback rate into rate field of order. If piggyback is infusing at a rate less than 100 mL/hr, enter 25 mL into dose field and 100 mL/hr into rate field of order. For KVO fluids, enter rate of 20 mL/hr or less into rate field of order. Recovery(Cath) Start: 06-14-2022 take 5-40 mL intrave nously once as needed 5-40 mL, IntraVENous, PRN, Starting on Mon06/14/22 at 1806, Until Discontinued, Line Care, After every IV line use For Line Patency: Peripheral IV = 5 mL; Midline or Central Line = 10 mL/lumen. If following IV push medication, administer flush at same rate as the IV push. Flush volume is determined by type of infusion therapy being given. For non-viscous solutions use: Peripheral IV = 5 mL Midline or Central Line = 10 mL/lumen For viscous solutions (i.e. blood components, parenteral nutrition, contrast media, or after obtaining blood sample) use: Peripheral IV = 10 mL Midline or Central Line = 20 mL/lumen Recovery(Cath) Start: 06-12-2022 sodium chlorid e flush 0.9 % injection 5-40 mL Start: 06-12-2022 End: 06-14-2022 0.9 % sodium chloride infusi on Start: 06-11-2022 take 1 dose intraven ously twice daily 5-40 mL, IntraVENous, EVERY 12 HOURS SCHEDULED (2 times per day), First dose on 06/11/22 at 0900, Until Discontinued For Line Patency: Peripheral IV = 5 mL; Midline or Central Line = 10 mL/lumen. If following IV push medication, administer flush at same rate as the IV push. Flush volume is determined by type of infusion therapy being given. For non-viscous solutions use: Peripheral IV = 5 mL Midline or Central Line = 10 mL/lumen For viscous solutions (i.e. blood components, parenteral nutrition, contrast media, or after obtaining blood sample) use: Peripheral IV = 10 mL Midline or Central Line = 20 mL/lumen Start: 06-11-2022 IntraVENous, a t 5-250 mL/hr, PRN, if patient receiving piggyback infusions and maintenance fluids are not ordered OR KVO fluids to protect IV site / prevent frequent line interruptions/ long duration, Starting on 06/11/22 at 0245 For piggyback infusion, administer at same rate as piggyback for a total of 25 mL. Enter 25 mL into dose field and piggyback rate into rate field of order. If piggyback is infusing at a rate less than 100 mL/hr, enter 25 mL into dose field and 100 mL/hr into rate field of order. For KVO fluids, enter rate of 20 mL/hr or less into rate field of order. Start: 06-11-2022 take 5-40 mL intrave nously once as needed 5-40 mL, IntraVENous, PRN, Starting on 06/11/22 at 0245, Until Discontinued, Line Care, After every IV line use For Line Patency: Peripheral IV = 5 mL; Midline or Central Line = 10 mL/lumen. If following IV push medication, administer flush at same rate as the IV push. Flush volume is determined by type of infusion therapy being given. For non-viscous solutions use: Peripheral IV = 5 mL Midline or Central Line = 10 mL/lumen For viscous solutions (i.e. blood components, parenteral nutrition, contrast media, or after obtaining blood sample) use: Peripheral IV = 10 mL Midline or Central Line = 20 mL/lumen Start: 06-10-2022 End: 06-10-2022 0.9 % sodium chloride bolus Start: 04-26-2022 take 1 dose intraven ously twice daily 5-40 mL, IntraVENous, EVERY 12 HOURS SCHEDULED (2 times per day), First dose on Mon04/26/22 at 0900, Until Discontinued For Line Patency: Peripheral IV = 5 mL; Midline or Central Line = 10 mL/lumen. If following IV push medication, administer flush at same rate as the IV push. Flush volume is determined by type of infusion therapy being given. For non-viscous solutions use: Peripheral IV = 5 mL Midline or Central Line = 10 mL/lumen For viscous solutions (i.e. blood components, parenteral nutrition, contrast media, or after obtaining blood sample) use: Peripheral IV = 10 mL Midline or Central Line = 20 mL/lumen Start: 04-26-2022 IntraVENous, a t 5-250 mL/hr, PRN, if patient receiving piggyback infusions and maintenance fluids are not ordered OR KVO fluids to protect IV site / prevent frequent line interruptions/ long duration, Starting on Mon04/26/22 at 0014 For piggyback infusion, administer at same rate as piggyback for a total of 25 mL. Enter 25 mL into dose field and piggyback rate into rate field of order. If piggyback is infusing at a rate less than 100 mL/hr, enter 25 mL into dose field and 100 mL/hr into rate field of order. For KVO fluids, enter rate of 20 mL/hr or less into rate field of order. Start: 04-26-2022 take 5-40 mL intrave nously once as needed 5-40 mL, IntraVENous, PRN, Starting on Mon04/26/22 at 0014, Until Discontinued, Line Care, After every IV line use For Line Patency: Peripheral IV = 5 mL; Midline or Central Line = 10 mL/lumen. If following IV push medication, administer flush at same rate as the IV push. Flush volume is determined by type of infusion therapy being given. For non-viscous solutions use: Peripheral IV = 5 mL Midline or Central Line = 10 mL/lumen For viscous solutions (i.e. blood components, parenteral nutrition, contrast media, or after obtaining blood sample) use: Peripheral IV = 10 mL Midline or Central Line = 20 mL/lumen zolpidem tartrate 5 mg oral tablet (17 sources) gamma-Aminobutyric Acid-ergic Agonist Start: 10-20-2023 take 10 mg by mouth once daily as needed for sleep 10 mg, oral, Nightly PRN, sleep, Starting on Mon10/20/23 at 0200, Look-alike/sound-alike medication - verify indication for use. Start: 06-13-2022 take 10 mg by mouth once daily as needed 10 mg, Oral, NIGHTLY PRN, Starting on Mon06/13/22 at 2100, Until Discontinued, Sleep Start: 04-26-2022 take 10 mg by mouth once daily as needed 10 mg, Oral, NIGHTLY PRN, Starting on Mon04/26/22 at 2100, Until Discontinued, Sleep End: 06-15-2022 take 1 tablet by mouth once daily as needed for sleep zolpidem (AMBIEN) 10 mg tablet Take 1 tablet (10 mg total) by mouth nightly as needed for sleep. 0 Active Comment on above: Take 10 mg by mouth at bedtime as needed. Completed/Discontinued Medications Medication Drug Class(es) Dates Sig (Normalized) Sig (Original) bisacodyl 5 mg delayed release oral tablet (9 sources) Stimulant Laxative Start: 11-26-2020 Bisacodyl (DULCOLAX) 5 mg tab Use as directed for Miralax / Gatorade Bowel Prep Kit 4 tablet 0 11/26/2020 Active Comment on above: Use as directed for Miralax / Gatorade Bowel Prep Kit Blood-Glucose Meter (ONETOUCH ULTRA2 METER) monitoring kit (9 sources) Start: 08-08-2017 Blood-Glucose Meter (ONETOUCH ULTRA2 METER) monitoring kit USE UTD 0 08/08/2017 Active Comment on above: USE UTD digoxin 0.125 mg oral tablet (1 source) Cardiac Glycoside End: 10-20-2023 take 1 tablet by mouth in the morning digoxin (LANOXIN) 125 mcg tablet Take 1 tablet (125 mcg total) by mouth in the morning. 0 10/20/2023 Discontinued (Therapy completed) docusate sodium 100 mg oral capsule (6 sources) Start: 04-23-2020 take 100 mg by mouth twice daily 100 mg, Oral, 2 TIMES DAILY, First dose on Mon06/13/22 at 0900, Until Discontinued DULCOLAX, BISACODYL, ORAL (9 sources) DULCOLAX, BISACODYL, ORAL Take by mouth once daily. Patient takes 10 tablets daily in order to have a bowel movement. 0 Active Comment on above: Take by mouth once d aily. Patient takes 10 tablets daily in order to have a bowel movement. famotidine 20 mg oral tablet (4 sources) Histamine-2 Receptor Antagonist Start: 04-26-2022 End: 06-15-2022 take 20 mg by mouth twice daily 20 mg, Oral, 2 TIMES DAILY, First dose on Mon06/13/22 at 0900, Until Discontinued 2 ml fentaNYL 0.05 mg/ml injection (2 sources) Opioid Agonist Start: 06-13-2022 End: 06-13-2022 take 1 dose by mouth once 50 mcg, IntraVENous, ONCE, 1 dose, On Mon06/13/22 at 0045 If oral and IV narcotics ordered, use oral first and only use IV if oral is ineffective or cannot take oral. Do Not give oral and IV within 1 hour of each other unless specifically ordered. Start: 06-10-2022 End: 06-10-2022 fentaNYL (SUBLIMAZE) injecti on 50 mcg fludrocortisone acetate 0.1 mg oral tablet (3 sources) End: 10-20-2023 take 1 tablet by mouth in the morning fludrocortisone (FLORINEF) 0.1 mg tablet Take 1 tablet (0.1 mg total) by mouth in the morning. 0 10/20/2023 Discontinued (Therapy completed) Comment on above: Take 1 tablet by hunter th once daily. 4 ml furosemide 10 mg/ml injection (6 sources) Loop Diuretic Start: 10-20-2023 End: 10-20-2023 furosemide (LASIX) injection 40 mg Start: 10-20-2023 take 20 mg by mouth once daily 20 mg, oral, Daily, First dose on Mon10/20/23 at 0900, Look-alike/sound-alike medication - verify indication for use. Comment on above: Take 1 tablet every day by oral route as needed. 1000 ml glucose 50 mg/ml / potassium chloride 0.02 meq/ml / sodium chloride 9 mg/ml injection (2 sources) Start: 10-20-2023 End: 10-20-2023 dextrose 5 % and sodium chloride 0.9 % with KCl 20 mEq/L 20 mEq/L infusion - Pyxis Override Pull Start: 10-20-2023 End: 10-20-2023 dextrose 5 % and sodium chlo ride 0.9 % with KCl 20 mEq/L infusion 24 hr isosorbide mononitrate 30 mg extended release oral tablet (4 sources) Nitrate Vasodilator Start: 06-05-2023 take 1 tablet by mouth once daily in the morning isosorbide mononitrate ER (IMDUR) 30 mg 24 hr tablet 1 tablet in the morning Orally Once a day 0 06/05/2023 Active Start: 06-13-2022 take 30 mg by mouth once daily 30 mg, Oral, DAILY, First dose on Mon06/13/22 at 0900, Until Discontinued Do not crush or chew. Hold if sbp<100 Comment on above: 1 tablet in the morn ing Orally Once a day iv contrast (will be provided with radiology test) (5 sources) Start: 04-28-20 iv contrast (will be provided with radiology test) Indications: Perforated ulcer (HCC) CT ABD/PEL -Inject, intravenously, once for 1 dose.No IV access, insert saline lock prior to the beginning of sedation, infusion, injection of imaging exam. Discontinue saline lock post exam. If Pt. has a central line or IVAD, may access for administration according to line specific nursing protocol. Once exam is complete flush line and de-access according to line specific nursing protocol in the CT contrast administration guidelines link. 1 Each 0 04/28/2022 Active Comment on above: CT ABD/PEL -Inject, intravenously, once for 1 dose.No IV access, insert saline lock prior to the beginning of sedation, infusion, injection of imaging exam. Discontinue saline lock post exam. If Pt. has a central line or IVAD, may access for administration according to line specific nursing protocol. Once exam is complete flush line and de-access according to line specific nursing protocol in the CT contrast administration guidelines link. magnesium oxide 400 mg oral tablet (3 sources) Start: 06-13-20 End: 06-15-20 take 400 mg by mouth once daily 400 mg, Oral, DAILY, First dose on 06/13/22 at 0900, Until Discontinued meclizine hydrochloride 12.5 mg oral tablet (3 sources) Antiemetic Start: 06-13-20 take 25 mg by mouth three times daily as needed 25 mg, Oral, 3 TIMES DAILY PRN, Starting on 06/13/22 at 0436, Until Discontinued, Dizziness End: 06-15-2022 take 1 tablet by mouth three times daily as needed meclizine (ANTIVERT) 25 MG tablet Indications: Vertigo Take 25 mg by mouth 3 times daily as needed 1/2 tab (12.5 mg) To 1 tab (25 mg) 3 times daily as needed for vertigo 0 06/15/2022 Discontinued (Stop Taking at Discharge) megestrol acetate 40 mg/ml oral suspension (1 source) Progestin Start: 08-28-2022 End: 10-20-2023 take 5 mL by mouth in the morning megestroL (MEGACE) 400 mg/10 mL (40 mg/mL) suspension Take 5 mL (200 mg total) by mouth in the morning. 480 mL 1 08/28/2022 10/20/2023 Discontinued (Therapy completed) metFORMIN hydrochloride 500 mg oral tablet (14 sources) Biguanide Start: 06-11-2022 take 500 mg by mouth twice daily at mealtime 500 mg, Oral, 2 TIMES DAILY WITH MEALS, First dose on 8/27/22 at 0800, Until Discontinued Start: 04-26-2022 take 1000 mg by mout h twice daily at mealtime 1,000 mg, Oral, 2 TIMES DAILY WITH MEALS, First dose on Mon04/26/22 at 0800, Until Discontinued take 1 tablet by hunter th twice daily at mealtime metFORMIN (GLUCOPHAGE) 1000 MG tablet Take 1,000 mg by mouth 2 times daily (with meals) 0 Active Comment on above: Take 500 mg by mouth twice daily. nitroglycerin 0.4 mg sublingual tablet (7 sources) Nitrate Vasodilator Start: 06-15-2022 nitroglycerin sublingual (NITROQUICK) 0.[address] 1 TABLET (0.4 MG) BY SUBLINGUAL ROUTE AT 1ST SIGN OF ATTACK; MAY REPEAT EVERY 5 MINUTES UP TO 3 TABS; IF NO RELIEF SEEK MEDICAL HELP 0 06/15/2022 Active Start: 06-15-2022 nitroGLYCERIN (NITROSTAT) 0.4 MG SL tablet up to max of 3 total doses. If no relief after 1 dose, call 911. 25 tablet 3 06/15/2022 Active Start: 06-12-2022 nitroGLYCERIN (NITROSTAT) SL tablet 0.4 mg Start: 04-25-2022 End: 04-25-2022 nitroGLYCERIN (NITROSTAT) SL tablet 0.4 mg nitroglycerin (N ITROSTAT) 0.[address] 1 tablet (0.4 mg total) under the tongue as needed for chest pain. 0 Active Comment on above: PLACE 1 TABLET (0.4 MG) BY SUBLINGUAL ROUTE AT 1ST SIGN OF ATTACK; MAY REPEAT EVERY 5 MINUTES UP TO 3 TABS; IF NO RELIEF SEEK MEDICAL HELP polyethylene glycol 3350 [id number] mg powder for oral solution (10 sources) Osmotic Laxative Start: 08-28-2022 End: 10-20-2023 polyethylene glycol (GLYCOLAX) 17 gram packet Take 17 g by mouth in the morning. 100 each 1 08/28/2022 10/20/2023 Discontinued (Therapy completed) Start: 11-26-2020 polyethylene g lycol 3350 (MIRALAX, GLYCOLAX) 17 gram/dose powder Use as directed for Miralax / Gatorade Bowel Prep Kit 238 g 0 11/26/2020 Active Comment on above: Use as directed for Miralax / Gatorade Bowel Prep Kit Potassium (5 sources) potassium (POTAS ANDRES ORAL) Take by mouth. 0 Active Comment on above: Take by mouth. 20 ml potassium acetate 2 meq/ml injection (1 source) End: 06-10-2022 potassium acetate 2 MEQ/ML injection Infuse 10 mEq intravenously 0 06/10/2022 Discontinued (LIST CLEANUP) tamoxifen 10 mg oral tablet (15 sources) Estrogen Agonist/Antagonist Start: 06-13-2022 take 20 mg by mouth once daily 20 mg, Oral, DAILY, First dose on Mon06/13/22 at 0900, Until Discontinued Hazardous Medication -- Refer to facility policy for handling and disposal. Start: 04-26-2022 take 20 mg by mouth once daily 20 mg, Oral, DAILY, First dose on Mon04/26/22 at 0900, Until Discontinued Hazardous Medication -- Refer to facility policy for handling and disposal. Start: 06-11-2021 End: 10-20-2023 take 1 tablet by mouth once daily tamoxifen (NOLVADEX) 20 mg chemo tablet Indications: Atypical ductal hyperplasia of left breast TAKE 1 TABLET BY MOUTH EVERY DAY 90 tablet 3 06/11/2021 10/20/2023 Discontinued (Therapy completed) take 2 tablets by [facility] once daily tamoxifen (NOLVADEX) 10 MG tablet Take 20 mg by mouth daily 0 Active tamoxifen (NOLVA DEX) 10 MG tablet Take 21 mg by mouth daily 0 Active Comment on above: Take 20 mg by mouth once daily. traMADol hydrochloride 50 mg oral tablet (3 sources) Opioid Agonist Start: 04-26-2022 take 50 mg by mouth twice daily 50 mg, Oral, 2 TIMES DAILY, First dose on Mon04/26/22 at 0015, Until Discontinued Problems Active Problems Problem Classification Problem Date Documented Da te Episodic/Chronic Acute cerebrovascular disease (2 sources) Hemorrhage into subarachnoid space of neuraxis; Translations: [Nontraumatic subarachnoid hemorrhage, unspecified] Onset: 8 09-30-2018 Chronic Acute myocardial infarction (14 sources) Myocardial infarction; Translations: [Non-ST elevation (NSTEMI) myocardial infarction] Onset: 8 08-28-2020 Chronic Anxiety disorders (11 sources) Anxiety disorder; Translations: [Anxiety disorder, unspecified] Onset: 0 05-28-2020 Chronic Complication of device; implant or graft (1 source) Arteriosclerosis of coronary artery bypass graft; Translations: [Atherosclerosis of coronary artery bypass graft(s) without angina pectoris] Onset: 2 08-25-2022 Chronic Congestive heart failure; nonhypertensive (4 sources) Chronic diastolic heart failure; Translations: [Chronic diastolic (congestive) heart failure] Onset: 2 Chronic Coronary atherosclerosis and other heart disease (12 sources) Coronary atherosclerosis; Translations: [Atherosclerotic heart disease of [place] coronary artery without angina pectoris] Onset: 0 05-28-2020 Chronic Diabetes mellitus without complication (14 sources) Type 2 diabetes mellitus without complication; Translations: [Type 2 diabetes mellitus without complications] Onset: 8 08-28-2020 Chronic Disorders of lipid metabolism (13 sources) Hyperlipidemia; Translations: [Other hyperlipidemia] Onset: 0 08-28-2020 Chronic E Codes: Fall (1 source) Fall Onset: 4 Essential hypertension (13 sources) Essential hypertension; Translations: [Essential (primary) hypertension] Onset: 0 08-28-2020 Chronic Fluid and electrolyte disorders (9 sources) Hypokalemia; Translations: [Hypokalemia] Onset: 8 09-30-2018 Episodic Gastroduodenal ulcer (except hemorrhage) (3 sources) Peptic ulcer with perforation; Translations: [Chronic or unspecified peptic ulcer, site unspecified, with perforation] Onset: 3 Chronic Malaise and fatigue (8 sources) Asthenia; Translations: [Weakness] Onset: 2 Episodic Malignant neoplasm without specification of site (14 sources) Malignant tumor of small intestine; 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] Onset: 0 08-28-2020 Chronic Mood disorders (1 source) Depressive disorder; Translations: [Depression] Onset: 2 08-24-2022 Chronic Neoplasms of unspecified nature or uncertain behavior (2 sources) Thrombocytosis; Translations: [Thrombocytosis] Onset: 2 Episodic Nonspecific chest pain (4 sources) Chest pain; Translations: [Chest pain, unspecified] Onset: 2 Episodic Nutritional deficiencies (3 sources) Nutritional marasmus; Translations: [Unspecified severe protein-calorie malnutrition] Onset: 2 10-20-2023 Chronic Other circulatory disease (2 sources) History of subarachnoid hemorrhage; Translations: [Personal history of other diseases of the circulatory system] Onset: 2 Episodic Other fractures (1 source) Multiple fractures of ribs, left side, initial encounter for closed fracture; Translations: [Multiple fractures of ribs, left side, initial encounter for closed fracture] Onset: 4 Episodic Other gastrointestinal disorders (2 sources) History of gastrointestinal bleed; Translations: [Personal history of other diseases of the digestive system] Onset: 2 Episodic Other gastrointestinal disorders (2 sources) Constipation; Translations: [Constipation, unspecified] Onset: 2 Episodic Other gastrointestinal disorders (1 source) Swollen abdomen; Translations: [Abdominal distension (gaseous)] 07-11-2023 Episodic Other gastrointestinal disorders (1 source) Disorder of intestine; Translations: [Other specified diseases of intestine] 07-11-2023 Episodic Other gastrointestinal disorders (1 source) Abdominal distension (gaseous); Translations: [Abdominal distension] Onset: 3 Episodic Other lower respiratory disease (1 source) Solitary pulmonary nodule; Translations: [Solitary pulmonary nodule] Onset: 4 Episodic Other nervous system disorders (2 sources) Neuropathy; Translations: [Polyneuropathy, unspecified] Onset: 0 04-23-2020 Chronic Other nervous system disorders (2 sources) Chronic pain syndrome; Translations: [Chronic pain syndrome] Onset: 2 Chronic Other nutritional; endocrine; and metabolic disorders (2 sources) Underweight; Translations: [Underweight] Onset: 2 Episodic Residual codes; unclassified (1 source) History of partial gastrectomy; Translations: [Acquired absence of stomach [part of]] 07-11-2023 Episodic Residual codes; unclassified (1 source) Acquired absence of stomach [part of]; Translations: [History of partial gastrectomy] Onset: 3 Episodic Residual codes; unclassified (1 source) Acquired absence of other specified parts of digestive tract; Translations: [Hx of cholecystectomy] Onset: 3 Episodic Substance-related disorders (20 sources) Nicotine dependence; Translations: [Nicotine dependence, cigarettes, uncomplicated] Onset: 8 05-28-2020 Chronic Unclassified (1 source) CONTACT W/AND (SUSP) EXPOS COVID-19; Translations: [CONTACT W/AND (SUSP) EXPOS COVID-19] Onset: 1 Unclassified (1 source) Other malignant neuroendocrine tumors; 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] Onset: 3 Unclassified (1 source) Medical Screening Onset: 4 Unclassified (1 source) EMS Onset: 4 Unclassified (1 source) Outpatient Infusion Onset: 3 Viral infection (3 sources) Disease caused by 2019-nCoV; Translations: [COVID-19] Onset: 4 10-19-2023 Episodic Viral infection (1 source) COVID-19; Translations: [COVID-19] Onset: 4 Past or Other Problems Problem Classification Problem Date Documented Da te Episodic/Chronic Abdominal pain (20 sources) Epigastric pain; Translations: [Epigastric pain] Onset: 0 05-28-2020 Episodic Alcohol-related disorders (2 sources) Alcohol intoxication; Translations: [Alcohol use, unspecified with intoxication, unspecified] Onset: 8 09-30-2018 Episodic Cancer of breast (11 sources) History of malignant neoplasm of breast; Translations: [Personal history of malignant neoplasm of breast] Onset: 0 05-28-2020 Episodic Gastrointestinal hemorrhage (2 sources) Gastrointestinal hemorrhage; Translations: [Gastrointestinal hemorrhage, unspecified] Onset: 0 Resolved: 0 04-23-2020 Episodic Intestinal obstruction without hernia (1 source) Intussusception of intestine; Translations: [Intussusception] Onset: 3 06-06-2023 Episodic Noninfectious gastroenteritis (1 source) Colitis; Translations: [Noninfective gastroenteritis and colitis, unspecified] Onset: 3 06-06-2023 Episodic Nonmalignant breast conditions (1 source) Atypical ductal hyperplasia of breast; Translations: [Unspecified benign mammary dysplasia of left breast] Onset: 7 09-14-2017 Episodic Other aftercare (10 sources) Patient encounter status; Translations: [USP (current) use of antithrombotics/antipl atelets] Onset: 0 05-28-2020 Episodic Other and unspecified benign neoplasm (1 source) Personal history of colonic polyps; Translations: [PERSONAL HISTORY OF COLONIC POLYPS] Onset: 1 Episodic Other and unspecified benign neoplasm (1 source) Adenomatous polyp of colon ; Translations: [Benign neoplasm of sigmoid colon] Onset: 9 01-01-2019 Episodic Other circulatory disease (3 sources) Low blood pressure; Translations: [Hypotension, unspecified] Onset: 0 Resolved: 0 04-23-2020 Episodic Other screening for suspected conditions (not mental disorders or infectious disease) (9 sources) CT of abdomen abnormal; Translations: [Abnormal findings on diagnostic imaging of other abdominal regions, including retroperitoneum] Onset: 0 05-28-2020 Episodic Residual codes; unclassified (2 sources) History of cardiac catheterization; Translations: [Other specified postprocedural states] Onset: 8 03-26-2018 Episodic Respiratory failure; insufficiency; arrest (adult) (1 source) Acute respiratory failure; Translations: [Acute respiratory failure with hypoxia] Onset: 3 06-06-2023 Episodic Substance-related disorders (1 source) Narcotic drug user; Translations: [Opioid use, unspecified, uncomplicated] Onset: 2 08-24-2022 Episodic Syncope (2 sources) Syncope and collapse; Translations: [Syncope and collapse] Onset: 2 08-24-2022 Episodic Results Test Name Value Interpretation Reference Range Facility BASIC METABOLIC PANLon 10-21 Anion gap [Moles/Vol] 9 mmol/L Normal 5-15 [facility] Comment on above: Performed By: #### C MP, 5643-2, 69297-2, CBCA, 61719-6 #### [facility] ([id number]) [address] [place] [address], [place] [address] Calcium [Mass/Vol] 8.9 mg/dL Normal 8.5-10.5 [facility] Comment on above: Performed By: #### C TERRA, 5643-2, 08980-3, CBCNuris, 69209-5 #### [facility] ([id number]) [address] [place] [address] 73035 Chloride [Moles/Vol] 104 mmol/L Normal 98-109 [facility] Comment on above: Performed By: #### Jolene ELLISON, 5643-2, 12086-2, MELISSA, 53821-8 #### [facility] ([id number]) [address] [place] [address] 80242 CO2 [Moles/Vol] 26 mmol/L Normal 22-32 [facility] Comment on above: Performed By: #### C TERRA, 5643-2, 98441-5, MELISSA, 15387-9 #### [facility] ([id number]) [address] [place] [address] 37324 Creatinine [Mass/Vol] 0.76 mg/dL Normal 0.40-1.00 [facility] Comment on above: Result Comment: METH OD TRACEABLE TO IDMS STANDARD Performed By: #### C TERRA, 5643-2, 77061-6, MELISSA, 71829-6 #### [facility] ([id number]) [address] [place] [address] 34164 GFR/1.73 sq M.predicted among non-blacks MDRD (S/P/Bld) [Vol rate/Area] 89 mL/min/{1.73_m2} Normal >59 Pr [facility] Comment on above: Result Comment: Reported eGFR is based on the CKD-EPI 2020 equation that does not use a race coefficient. Performed By: #### C TERRA, 5643-2, 20877-7, MELISSA, 14172-6 #### [facility] ([id number]) [address] [place] [address] 15195 Glucose [Mass/Vol] 127 mg/dL High 65-99 [facility] Comment on above: Performed By: #### C TERRA, 5643-2, 94117-2, CBCA, 81717-9 #### [facility] ([id number]) [address] [place] [address] 78116 Potassium [Moles/Vol] 3.5 mmol/L Normal 3.5-5.0 [facility] Comment on above: Performed By: #### Jolene ELLISON, 5643-2, 77694-7, CBCA, 58371-3 #### [facility] ([id number]) [address] [place] [address] 67302 Sodium [Moles/Vol] 139 mmol/L Normal 134-146 [facility] Comment on above: Performed By: #### Joleen ELLISON, 5643-2, 06614-9, CBCA, 40065-3 #### [facility] ([id number]) [address] [place] [address] 54128 Urea nitrogen [Mass/Vol] 13 mg/dL Normal 5-27 [facility] Comment on above: Performed By: #### Jolene ELLISON, 5643-2, 14148-2, CBCA, 55863-2 #### [facility] ([id number]) [address] [place] [address] 06580 Basic Metabolic Panelon 01-0 Anion gap [Moles/Vol] 9 mmol/L 5 - 15 mmol/L [facility] Calcium [Mass/Vol] 8.9 mg/dL 8.5 - 10. 5 mg/dL [facility] Chloride [Moles/Vol] 104 mmol/L 98 - 10 9 mmol/L [facility] CO2 [Moles/Vol] 26 mmol/L 22 - 32 mmol/L [facility] Creatinine [Mass/Vol] 0.76 mg/dL 0.40 - 1.00 mg/dL [facility] Comment on above: METHOD TRACEABLE TO IDNV STANDARD eGFR (CKD-EPI)non-race dependent 89 - PINF [facility] Comment on above: Reported eGFR is based on the CKD-EPI 2020 equation that does not use a race coefficient. Glucose [Mass/Vol] 127 mg/dL High 65 - 99 mg/dL [facility] Interpretation and review of laboratory results Abnormal [facility] Potassium [Moles/Vol] 3.5 mmol/L 3.5 - 5.0 mmol/L [facility] Sodium [Moles/Vol] 139 mmol/L 134 - 146 mmol/L [facility] Urea nitrogen [Mass/Vol] 13 mg/dL 5 - 27 mg/dL [facility] CBC AND AUTO DIFFon 10-21-19 24 ABSOLUTE BASOPHIL 0.1 X10E9/L Normal 0.0-0.2 [facility] Comment on above: Performed By: #### C TERRA, 5643-2, 82141-1, CBCA, 09596-4 #### [facility] ([id number]) [address] [place] [address] 17974 ABSOLUTE NEUTROPHIL 9.0 X10E9/L High 1.5-6.6 [facility] Comment on above: Performed By: #### C TERRA, 5643-2, 88178-8, CBCA, 69028-8 #### [facility] ([id number]) [address] [place] [address] 28985 Basophils/100 WBC (Bld) 0.5 % Normal [facility] Comment on above: Performed By: #### Jolene ELLISON, 5643-2, 69026-5, CBCA, 41710-0 #### [facility] ([id number]) [address] [place] [address] 07255 Eosinophils (Bld) [#/Vol] 0.0 10*3/uL Normal 0.0-0.4 [facility] Comment on above: Performed By: #### C TERRA, 5643-2, 85301-3, CBCA, 86339-8 #### [facility] ([id number]) [address] [place] [address] 33635 Eosinophils/100 WBC (Bld) 0.1 % Normal [facility] Comment on above: Performed By: #### C TERRA, 5643-2, 16472-9, CBCA, 95327-5 #### [facility] ([id number]) [address] [place] [address] 36338 Erythrocyte distribution width (RBC) [Ratio] 16.3 % High 11.5-15.0 [facility] Comment on above: Performed By: #### C TERRA, 5643-2, 28013-7, CBCA, #### [facility] ([id number]) [address] [place] [address] 07201 Hematocrit (Bld) [Volume fraction] 33.1 % Low 35-47 [facility] Comment on above: Performed By: #### C TERRA, 5643-2, 30980-4, CBCA, #### [facility] ([id number]) [address] [place] [address] 14650 Hemoglobin (Bld) [Mass/Vol] 10.8 g/dL Low 11.7-15.5 [facility] Comment on above: Performed By: #### C TERRA, 5643-2, , CBCA, #### [facility] ([id number]) [address] [place] [address] 34185 Lymphocytes (Bld) [#/Vol] 1.4 10*3/uL Normal 1.0-3.5 [facility] Comment on above: Performed By: #### C TERRA, 5643-2, 69983-0, CBCA, 79898-4 #### [facility] ([id number]) [address] [place] [address] 23865 Lymphocytes/100 WBC (Bld) 12.1 % Normal [facility] Comment on above: Performed By: #### C TERRA, 5643-2, 25641-9, CBCA, #### [facility] ([id number]) [address] [place] [address] 82474 MCH (RBC) [Entitic mass] 28.7 pg Normal 27-34 [facility] Comment on above: Performed By: #### C TERRA, 5643-2, 37832-4, CBCA, #### [facility] ([id number]) [address] [place] [address] 20086 MCHC (RBC) [Mass/Vol] 32.7 g/dL Normal 32-36 [facility] Comment on above: Performed By: #### C TERRA, 5643-2, 11011-3, CBCA, #### [facility] ([id number]) [address] [place] [address] 42294 MCV (RBC) [Entitic vol] 88 fL Normal 80-100 P [facility] Comment on above: Performed By: #### C TERRA, 5643-2, , CBCA, #### [facility] ([id number]) [address] [place] [address] 74053 Monocytes (Bld) [#/Vol] 0.9 10*3/uL Normal 0-0.9 [facility] Comment on above: Performed By: #### C TERRA, 5643-2, , CBCA, #### [facility] ([id number]) [address] [place] [address] 56028 Monocytes/100 WBC (Bld) 8.0 % Normal [facility] Comment on above: Performed By: #### C TERRA, 5643-2, 25383-1, CBCA, #### [facility] ([id number]) [address] [place] [address] 96610 Neutrophils/100 WBC (Bld) 79.3 % Normal [facility] Comment on above: Performed By: #### C TERRA, 5643-2, 38981-7, CBCA, 33066-3 #### [facility] ([id number]) [address] [place] [address] 89615 Platelet mean volume (Bld) [Entitic vol] 9.1 fL Normal 7-12 [facility] Comment on above: Performed By: #### Jolene ELLISON, 5643-2, 97768-0, CBCA, 49863-6 #### [facility] ([id number]) [address] [place] [address] 71943 Platelets (Bld) [#/Vol] 342 10*3/uL Normal 150-450 [facility] Comment on above: Performed By: #### Jolene ELLISON, 5643-2, 04397-8, CBCA, 97658-9 #### [facility] ([id number]) [address] [place] [address] 11431 RBC COUNT 3.78 X10E12/L Low 3.80-5.20 [facility] Comment on above: Performed By: #### Jolene ELLISON, 5643-2, 43771-9, CBCA, 25364-1 #### [facility] ([id number]) [address] [place] [address] 09710 WBC (Bld) [#/Vol] 11.3 10*3/uL High 4.0-11.0 [facility] Comment on above: Performed By: #### Jolene ELLISON, 5643-2, 57144-3, CBCA, 64652-4 #### [facility] ([id number]) [address] [place] [address] 17819 CBC auto differentialon -0 Basophils (Bld) [#/Vol] 0.1 10*3/uL [facility] Basophils/100 WBC (Bld) 0.5 % P [facility] Eosinophils (Bld) [#/Vol] 0.0 10*3/uL [facility] Eosinophils/100 WBC (Bld) 0.1 % [facility] Erythrocyte distribution width (RBC) [Ratio] 16.3 % High 11.5 - 15.0 % [facility] Hematocrit (Bld) [Volume fraction] 33.1 % Low 35 - 47 % [facility] Hemoglobin (Bld) [Mass/Vol] 10.8 g/dL Low 11.7 - 15.5 g/dL [facility] Interpretation and review of laboratory results Abnormal [facility] Lymphocytes (Bld) [#/Vol] 1.4 10*3/uL [facility] Lymphocytes/100 WBC (Bld) 12.1 % [facility] MCH (RBC) [Entitic mass] 28.7 pg 27 - 34 pg [facility] MCHC (RBC) [Mass/Vol] 32.7 g/dL 32 - 3 6 g/dL [facility] MCV (RBC) [Entitic vol] 88 fL 80 - 100 fL [facility] Monocytes (Bld) [#/Vol] 0.9 10*3/uL [facility] Monocytes/100 WBC (Bld) 8.0 % [facility] Neutrophils (Bld) [#/Vol] 9.0 10*3/uL High [facility] Neutrophils/100 WBC (Bld) 79.3 % [facility] Platelet mean volume (Bld) [Entitic vol] 9.1 fL 7 - 12 fL [facility] Platelets (Bld) [#/Vol] 342 10*3/uL [facility] RBC (Bld) [#/Vol] 3.78 10*6/uL Low [facility] WBC corrected for nucl RBC Auto (Bld) [#/Vol] 11.3 High [facility] CBC AND AUTO DIFFon 10-20-19 ABSOLUTE BASOPHIL 0.1 X10E9/L Normal 0.0-0.2 [facility] Comment on above: Performed By: #### C BCA #### [facility] ([id number]) [address] [place] [address], [place] [address] ABSOLUTE NEUTROPHIL 5.9 X10E9/L Normal 1.5-6.6 [facility] Comment on above: Performed By: #### C BCA #### [facility] ([id number]) [address] [place] [address] 51891 Basophils/100 WBC (Bld) 0.7 % Normal [facility] Comment on above: Performed By: #### C BCA #### [facility] ([id number]) [address] [place] [address] 45031 Eosinophils (Bld) [#/Vol] 0.1 10*3/uL Normal 0.0-0.4 [facility] Comment on above: Performed By: #### C BCA #### [facility] ([id number]) [address] [place] [address] 30719 Eosinophils/100 WBC (Bld) 1.4 % Normal [facility] Comment on above: Performed By: #### C BCA #### [facility] ([id number]) [address] [place] [address] 00662 Erythrocyte distribution width (RBC) [Ratio] 16.3 % High 11.5-15.0 [facility] Comment on above: Performed By: #### C BCA #### [facility] ([id number]) [address] [place] [address] 94870 Hematocrit (Bld) [Volume fraction] 31.3 % Low 35-47 [facility] Comment on above: Performed By: #### C BCA #### [facility] ([id number]) [address] [place] [address] 86414 Hemoglobin (Bld) [Mass/Vol] 10.2 g/dL Low 11.7-15.5 [facility] Comment on above: Performed By: #### C BCA #### [facility] ([id number]) [address] [place] [address] 86929 Lymphocytes (Bld) [#/Vol] 2.2 10*3/uL Normal 1.0-3.5 [facility] Comment on above: Performed By: #### C BCA #### [facility] ([id number]) [address] [place] [address] 59261 Lymphocytes/100 WBC (Bld) 24.0 % Normal [facility] Comment on above: Performed By: #### C BCA #### [facility] ([id number]) [address] [place] [address] 52849 MCH (RBC) [Entitic mass] 29.0 pg Normal 27-34 [facility] Comment on above: Performed By: #### C BCA #### [facility] ([id number]) [address] [place] [address] 30115 MCHC (RBC) [Mass/Vol] 32.5 g/dL Normal 32-36 [facility] Comment on above: Performed By: #### C BCA #### [facility] ([id number]) [address] [place] [address] 65482 MCV (RBC) [Entitic vol] 89 fL Normal 80-100 [facility] Comment on above: Performed By: #### C BCA #### [facility] ([id number]) [address] [place] [address] 30948 Monocytes (Bld) [#/Vol] 0.9 10*3/uL Normal 0-0.9 [facility] Comment on above: Performed By: #### C BCA #### [facility] ([id number]) [address] [place] [address] 87724 Monocytes/100 WBC (Bld) 9.8 % Normal [facility] Comment on above: Performed By: #### C BCA #### [facility] ([id number]) [address] [place] [address] 22367 Neutrophils/100 WBC (Bld) 64.1 % Normal [facility] Comment on above: Performed By: #### C BCA #### [facility] ([id number]) [address] [place] [address] 00088 Platelet mean volume (Bld) [Entitic vol] 8.8 fL Normal 7-12 [facility] Comment on above: Performed By: #### C BCA #### [facility] ([id number]) [address] [place] [address] 24721 Platelets (Bld) [#/Vol] 306 10*3/uL Normal 150-450 [facility] Comment on above: Performed By: #### C BCA #### [facility] ([id number]) [address] [place] [address] 90337 RBC COUNT 3.51 X10E12/L Low 3.80-5.20 [facility] Comment on above: Performed By: #### C BCA #### [facility] ([id number]) [address] [place] [address] 11773 WBC (Bld) [#/Vol] 9.2 10*3/uL Normal 4.0-11.0 [facility] Comment on above: Performed By: #### C BCA #### [facility] ([id number]) [address] [place] [address] 21569 CBC auto differentialon -0 Basophils (Bld) [#/Vol] 0.1 10*3/uL [facility] Basophils/100 WBC (Bld) 0.7 % [facility] Eosinophils (Bld) [#/Vol] 0.1 10*3/uL [facility] Eosinophils/100 WBC (Bld) 1.4 % [facility] Erythrocyte distribution width (RBC) [Ratio] 16.3 % High 11.5 - 15.0 % [facility] Hematocrit (Bld) [Volume fraction] 31.3 % Low 35 - 47 % [facility] Hemoglobin (Bld) [Mass/Vol] 10.2 g/dL Low 11.7 - 15.5 g/dL [facility] Interpretation and review of laboratory results Abnormal [facility] Lymphocytes (Bld) [#/Vol] 2.2 10*3/uL [facility] Lymphocytes/100 WBC (Bld) 24.0 % [facility] MCH (RBC) [Entitic mass] 29.0 pg 27 - 34 pg [facility] MCHC (RBC) [Mass/Vol] 32.5 g/dL 32 - 3 6 g/dL [facility] MCV (RBC) [Entitic vol] 89 fL 80 - 100 fL [facility] Monocytes (Bld) [#/Vol] 0.9 10*3/uL [facility] Monocytes/100 WBC (Bld) 9.8 % P [facility] Neutrophils (Bld) [#/Vol] 5.9 10*3/uL [facility] Neutrophils/100 WBC (Bld) 64.1 % [facility] Platelet mean volume (Bld) [Entitic vol] 8.8 fL 7 - 12 fL [facility] Platelets (Bld) [#/Vol] 306 10*3/uL [facility] RBC (Bld) [#/Vol] 3.51 10*6/uL Low [facility] WBC corrected for nucl RBC Auto (Bld) [#/Vol] 9.2 [facility] DRUG SCREEN, URINEon 024 AMPHETAMINE/METHAMP Negative Normal NEG [facility] Comment on above: Result Comment: AMPH /METH screening cut off = 1000 ng/mL Performed By: #### C TERRA, 5643-2, 39713-6, CBCA, 09947-8 #### [facility] ([id number]) [address] [place] [address], [place] [address] BARBITURATES Negative Normal NEG [facility] Comment on above: Result Comment: Blessing iturates screening cut off value = 200 ng/mL Performed By: #### C MP, 5643-2, 98724-0, CBCA, 80760-4 #### [facility] ([id number]) [address] [place] [address] 03401 BENZODIAZEPINES Positive Abnormal NEG [facility] Comment on above: Result Comment: Conf irmation available upon request. Benzodiazepines screening cut off value = 200 ng/mL Performed By: #### C TERRA, 5643-2, 65178-4, CBCA, 74208-1 #### [facility] ([id number]) [address] [place] [address] 23366 CANNABINOIDS Negative Normal NEG [facility] Comment on above: Result Comment: Rudy abinoids/THC screening cut off value = 50 ng/mL Performed By: #### C TERRA, 5643-2, 16691-4, CBCA, #### [facility] ([id number]) [address] [place], [place] [address] COCAINE METABOLITE Negative Normal NEG [facility] Comment on above: Result Comment: Coca ine screening cut off value = 300 ng/mL Performed By: #### C TERRA, 5643-2, 67715-5, CBCA, 39591-5 #### [facility] ([id number]) [address] [place] [address] 53305 ECSTASY Negative Normal NEG [facility] Comment on above: Result Comment: Ecst asy screening cut off value = 500 ng/mL This report is intended for use in clinical monitoring or management of patients. Performed By: #### C TERRA, 5643-2, 65267-2, CBCA, 47294-7 #### [facility] ([id number]) [address] [place], [place] [address] METHADONE Negative Normal NEG [facility] Comment on above: Result Comment: Meth adone screening cut off value = 300 ng/mL. Performed By: #### C TERRA, 5643-2, 38058-6, CBCA, 52902-4 #### [facility] ([id number]) [address] [place] [address] 93506 OPIATES Positive Abnormal NEG [facility] Comment on above: Result Comment: Conf irmation available upon request. Opiates screening cut off value = 300 ng/mL NOTE: This test is used for the detection of codeine, hydrocodone (>1000 ng/mL), morphine and hydromorphone (>900 ng/mL) in urine. Performed By: #### C TERRA, 5643-2, 30243-5, CBCA, 68746-6 #### [facility] ([id number]) [address] [place] [address] 10144 OXYCODONE Positive Abnormal NEG [facility] Comment on above: Result Comment: Conf irmation available upon request. Oxycodone screening cut off value = 300 ng/mL NOTE: This test is used for the detection of oxycodone and oxymorphone in urine. Performed By: #### C TERRA, 5643-2, 23513-3, CBCNuris, 78687-6 #### [facility] ([id number]) [address] [place] [address] 48079 PHENCYCLIDINE Negative Normal NEG [facility] Comment on above: Result Comment: Phen cyclidine screening cut off value = 25 ng/mL Performed By: #### C TERRA, 5643-2, 55055-6, CBCA, 45596-0 #### [facility] ([id number]) [address] [place] [address] 86342 Drug Screen, Urineon 024 Amphetamines Screen method >1000 ng/mL Ql (U) Negative Negative^N egative [facility] Comment on above: AMPH/METH screening cut off = 1000 ng/mL Barbiturates Screen Ql (U) Negative Negative^N egative [facility] Comment on above: Barbiturates screeni ng cut off value = 200 ng/mL Benzodiazepines Ql (U) Positive Abnormal Negat ernestina^N egative [facility] Comment on above: Confirmation availab le upon request. Benzodiazepines screening cut off value = 200 ng/mL Cocaine Ql (U) Negative Negative^N [facility] Comment on above: Cocaine screening cu t off value = 300 ng/mL Interpretation and review of laboratory results Abnormal [facility] Methadone Screen Ql (U) Negative Nega tive^N [facility] Comment on above: Methadone screening cut off value = 300 ng/mL. Methylenedioxymethampheta mine Screen Ql (U) Negative Negative^N [facility] Comment on above: Ecstasy screening cu t off value = 500 ng/mL This report is intended for use in clinical monitoring or management of patients. Opiates Screen Ql (U) Positive Abnormal Negati ve^N [facility] Comment on above: Confirmation availab le upon request. Opiates screening cut off value = 300 ng/mL NOTE: This test is used for the detection of codeine, hydrocodone (>1000 ng/mL), morphine and hydromorphone (>900 ng/mL) in urine. oxyCODONE Ql (U) Positive Abnormal Negative^N [facility] Comment on above: Confirmation availab le upon request. Oxycodone screening cut off value = 300 ng/mL NOTE: This test is used for the detection of oxycodone and oxymorphone in urine. Phencyclidine Screen method >25 ng/mL Ql (U) Negative Negative^N [facility] Comment on above: Phencyclidine screen ing cut off value = 25 ng/mL Tetrahydrocannabinol Screen method >50 ng/mL Ql (U) Negative Negative^N [facility] Comment on above: Cannabinoids/THC scr eening cut off value = 50 ng/mL [facility] ECG 12 leadon 10-20-2023 TRACEMASTERVUE [facility] Procalcitoninon 10-20-2023 Procalcitonin IA [Mass/Vol] 0.07 ng/mL High NINF - 0.05 ng/mL [facility] Comment on above: NOTE <0.50 ng/mL - Low risk of severe sepsis and/or septic shock. <2.00 ng/mL - Recommend retesting within 6-24 hours. >2.00 ng/mL - High risk of sepsis and/or septic shock. Procalcitonin IA [Mass/Vol]o n 10-20-2023 PROCALCITONIN 0.07 ng/mL High <0.05 [facility] Comment on above: Result Comment: NOTE <0.50 ng/mL - Low risk of severe sepsis and/or septic shock. <2.00 ng/mL - Recommend retesting within 6-24 hours. >2.00 ng/mL - High risk of sepsis and/or septic shock. Performed By: #### C TERRA, 5643-2, 39910-6, CBCA, 92095-3 #### [facility] ([id number]) [address] [place] [address] 44698 Interpretation and review of laboratory results Abnormal [facility] URINALYSISon 10-20-2023 Bilirubin Ql (U) Negative Normal NEG [facility] Comment on above: Performed By: #### Jolene ELLISON, 5643-2, 91936-9, CBCA, 67645-6 #### [facility] ([id number]) [address] [place] [address] 11573 BLOOD/HGB Negative Normal NEG [facility] Comment on above: Performed By: #### C TERRA, 5643-2, 02694-4, CBCA, 30338-7 #### [facility] ([id number]) [address] [place] [address] 11957 Color (U) YELLOW Normal YELLOW [facility] Comment on above: Performed By: #### C TERRA, 5643-2, 29317-3, CBCA, 34813-0 #### [facility] ([id number]) [address] [place] [address] 85259 Glucose Ql (U) Negative Normal NEG [facility] Comment on above: Performed By: #### C TERRA, 5643-2, 72664-3, CBCA, 55259-2 #### [facility] ([id number]) [address] [place] [address] 43727 Ketones Ql (U) Negative Normal NEG [facility] Comment on above: Performed By: #### C TERRA, 5643-2, 13258-6, CBCA, 44738-7 #### [facility] ([id number]) [address] [place] [address] 93200 Leukocyte esterase Test strip Ql (U) Negative Normal NEG [facility] Comment on above: Performed By: #### Jolene ELLISON, 5643-2, 88703-0, CBCA, #### [facility] ([id number]) [address] [place] [address] 03259 Nitrite Ql (U) Negative Normal NEG [facility] Comment on above: Performed By: #### C TERRA, 5643-2, 85720-1, CBCA, 13703-9 #### [facility] ([id number]) [address] [place] [address] 53914 pH (U) 6.0 [pH] Normal 5.0-8.5 [facility] Comment on above: Performed By: #### Jolene ELLISON, 5643-2, 18893-7, CBCA, #### [facility] ([id number]) [address] [place] [address] 22617 Protein Ql (U) Negative Normal NEG [facility] Comment on above: Performed By: #### Jolene ELLISON, 5643-2, 67397-1, CBCA, 39960-8 #### [facility] ([id number]) [address] [place] [address] 52887 Specific gravity (U) [Rel density] 1.010 Normal 1.003-1.03 5 [facility] Comment on above: Performed By: #### Jolene ELLISON, 5643-2, 03818-4, CBCA, #### [facility] ([id number]) [address] [place] [address] 69819 TURBIDITY CLEAR Normal CLEAR [facility] Comment on above: Performed By: #### C TERRA, 5643-2, 97972-5, CBCA, 81832-8 #### [facility] ([id number]) [address] [place] [address] 13131 Urobilinogen Qn (U) 0.2 {Mikayla'U}/dL Normal <1.1 [facility] Comment on above: Performed By: #### C TERRA, 5643-2, 17916-1, CBCA, 81426-9 #### [facility] ([id number]) [address] [place] [address] 33963 URINE CULTUREon 10-20-2023 Bacteria identified Cx Nom (U) CULTURE RESULTS <10,000 ORGANISMS/ML NORMAL URO GENITAL JYOTI Normal [facility] Comment on above: Performed By: #### C TERRA, 5643-2, 11979-3, CBCA, 43607-6 #### [facility] ([id number]) [address] [place] [address] 13293 Urinalysison 10-20-2023 Bilirubin Ql (U) Negative Negative^N egative [facility] Color (U) YELLOW YELLOW^YEL LOW [facility] Glucose (U) [Mass/Vol] Negative Negat ernestina^N egative mg/dL [facility] Hemoglobin Auto test strip Ql (U) Negative Negative^N egative [facility] Ketones (U) [Mass/Vol] Negative Negat ernestina^N egative mg/dL [facility] Leukocyte esterase Auto test strip Ql (U) Negative Negative^N egative [facility] Nitrite Auto test strip Ql (U) Negative Negative^N egative [facility] pH (U) 6.0 [pH] 5.0 - 8.5 [facility] Protein (U) [Mass/Vol] Negative Negat ernestina^N egative mg/dL [facility] Specific gravity Refractometry automated (U) [Rel density] 1.010 1.003 - 1.035 [facility] [facility] Turbidity Ql (U) CLEAR CLEAR^ARABELLA R [facility] Urobilinogen Qn (U) 0.2 NINF ProMe dica [facility] AMMONIAon 10-19-2023 Ammonia (P) [Moles/Vol] 15 umol/L Normal 11-35 P [facility] Comment on above: Performed By: #### 1 6362-6 #### [facility] ([id number]) [address] [place] [address] 60119 Ammoniaon 10-19-2023 Ammonia (P) [Moles/Vol] 15 umol/L 11 - 35 umol/L [facility] Ammonia (P) [Moles/Vol]on [facility] BLOOD CULTUREon 10-19-2023 Bacteria identified Aer cx Nom (Bld) CULTURE RESULTS NO GROWTH 5 DAYS Normal [facility] Bacteria identified Aer cx Nom (Bld) CULTURE RESULTS NO GROWTH 5 DAYS Normal [facility] CBC AND AUTO DIFFon 10-19-19 24 ABSOLUTE BASOPHIL 0.0 X10E9/L Normal 0.0-0.2 [facility] Comment on above: Performed By: #### C TERRA, 5643-2, 39718-5, CBCA, 53122-9 #### [facility] ([id number]) [address] [place] [address] 78979 ABSOLUTE NEUTROPHIL 4.8 X10E9/L Normal 1.5-6.6 [facility] Comment on above: Performed By: #### C TERRA, 5643-2, 88702-5, CBCA, 30869-1 #### [facility] ([id number]) [address] [place] [address] 14457 Basophils/100 WBC (Bld) 0.6 % Normal P [facility] Comment on above: Performed By: #### C TERRA, 5643-2, 08314-4, CBCA, 86398-1 #### [facility] ([id number]) [address] [place] [address] Eosinophils (Bld) [#/Vol] 0.1 10*3/uL Normal 0.0-0.4 [facility] Comment on above: Performed By: #### C TERRA, 5643-2, 90424-2, CBCA, 31202-7 #### [facility] ([id number]) [address] [place] [address] 25561 Eosinophils/100 WBC (Bld) 1.8 % Normal [facility] Comment on above: Performed By: #### C TERRA, 5643-2, 22731-8, CBCA, #### [facility] ([id number]) [address] [place] [address] 87706 Erythrocyte distribution width (RBC) [Ratio] 15.9 % High 11.5-15.0 [facility] Comment on above: Performed By: #### C TERRA, 5643-2, , CBCA, 09551-6 #### [facility] ([id number]) [address] [place] [address] 74474 Hematocrit (Bld) [Volume fraction] 38.5 % Normal 35-47 [facility] Comment on above: Performed By: #### C TERRA, 5643-2, 08603-9, CBCA, 26015-4 #### [facility] ([id number]) [address] [place] [address] 93011 Hemoglobin (Bld) [Mass/Vol] 12.5 g/dL Normal 11.7-15.5 [facility] Comment on above: Performed By: #### C TERRA, 5643-2, 98487-9, CBCA, #### [facility] ([id number]) [address] [place] [address] 94555 Lymphocytes (Bld) [#/Vol] 2.2 10*3/uL Normal 1.0-3.5 [facility] Comment on above: Performed By: #### C MP, 5643-2, 91652-0, CBCA, 93987-5 #### [facility] ([id number]) [address] [place] [address] 76309 Lymphocytes/100 WBC (Bld) 28.2 % Normal [facility] Comment on above: Performed By: #### C TERRA, 5643-2, 13706-7, CBCA, #### [facility] ([id number]) [address] [place] [address] 01955 MCH (RBC) [Entitic mass] 28.6 pg Normal 27-34 [facility] Comment on above: Performed By: #### C TERRA, 5643-2, 65745-3, CBCA, #### [facility] ([id number]) [address] [place] [address] 75239 MCHC (RBC) [Mass/Vol] 32.4 g/dL Normal 32-36 [facility] Comment on above: Performed By: #### C TERRA, 5643-2, 53935-3, CBCA, 24762-7 #### [facility] ([id number]) [address] [place] [address] 69999 MCV (RBC) [Entitic vol] 88 fL Normal 80-100 [facility] Comment on above: Performed By: #### C TERRA, 5643-2, 80884-2, CBCA, 36943-6 #### [facility] ([id number]) [address] [place] [address] 70763 Monocytes (Bld) [#/Vol] 0.7 10*3/uL Normal 0-0.9 [facility] Comment on above: Performed By: #### C TERRA, 5643-2, 47740-9, CBCA, #### [facility] ([id number]) [address] [place] [address] [place] [address] Monocytes/100 WBC (Bld) 8.7 % Normal [facility] Comment on above: Performed By: #### C TERRA, 5643-2, 64700-9, CBCA, 16212-8 #### [facility] ([id number]) [address] [place] [address] 52805 Neutrophils/100 WBC (Bld) 60.7 % Normal [facility] Comment on above: Performed By: #### C TERRA, 5643-2, 51173-2, CBCA, #### [facility] ([id number]) [address] [place] [address] 69035 Platelet mean volume (Bld) [Entitic vol] 8.9 fL Normal 7-12 [facility] Comment on above: Performed By: #### C TERRA, 5643-2, 60853-3, CBCA, 34056-1 #### [facility] ([id number]) [address] [place] [address] 60485 Platelets (Bld) [#/Vol] 333 10*3/uL Normal 150-450 [facility] Comment on above: Performed By: #### C TERRA, 5643-2, 41162-4, CBCA, #### [facility] ([id number]) [address] [place] [address] 87072 RBC COUNT 4.37 X10E12/L Normal 3.80-5.20 [facility] Comment on above: Performed By: #### C TERRA, 5643-2, 83355-8, CBCA, #### [facility] ([id number]) [address] [place] [address] 74177 WBC (Bld) [#/Vol] 7.9 10*3/uL Normal 4.0-11.0 [facility] Comment on above: Performed By: #### C TERRA, 5643-2, 74778-6, CBCA, 71504-4 #### [facility] ([id number]) [address] [facility] [place] [address] CBC auto differentialon Basophils (Bld) [#/Vol] 0.0 10*3/uL [facility] Basophils/100 WBC (Bld) 0.6 % [facility] Eosinophils (Bld) [#/Vol] 0.1 10*3/uL [facility] Eosinophils/100 WBC (Bld) 1.8 % [facility] Erythrocyte distribution width (RBC) [Ratio] 15.9 % High 11.5 - 15.0 % [facility] Hematocrit (Bld) [Volume fraction] 38.5 % 35 - 47 % [facility] Hemoglobin (Bld) [Mass/Vol] 12.5 g/dL 11.7 - 15.5 g/dL [facility] Interpretation and review of laboratory results Abnormal [facility] Lymphocytes (Bld) [#/Vol] 2.2 10*3/uL [facility] Lymphocytes/100 WBC (Bld) 28.2 % [facility] MCH (RBC) [Entitic mass] 28.6 pg 27 - 34 pg [facility] MCHC (RBC) [Mass/Vol] 32.4 g/dL 32 - 3 6 g/dL [facility] MCV (RBC) [Entitic vol] 88 fL 80 - 100 fL [facility] Monocytes (Bld) [#/Vol] 0.7 10*3/uL [facility] Monocytes/100 WBC (Bld) 8.7 % [facility] Neutrophils (Bld) [#/Vol] 4.8 10*3/uL [facility] Neutrophils/100 WBC (Bld) 60.7 % [facility] Platelet mean volume (Bld) [Entitic vol] 8.9 fL 7 - 12 fL [facility] Platelets (Bld) [#/Vol] 333 10*3/uL [facility] RBC (Bld) [#/Vol] 4.37 10*6/uL [facility] WBC corrected for nucl RBC Auto (Bld) [#/Vol] 7.9 [facility] COMPREHENSIVE METABOLIC PANE Tramaine 10-19-2023 Albumin [Mass/Vol] 3.8 g/dL Normal 3.2-5.3 [facility] Comment on above: Performed By: #### C TERRA, 5643-2, 56288-6, CBCA, 49114-3 #### [facility] ([id number]) [address] [place] [address] 37630 ALP [Catalytic activity/Vol] 87 U/L Normal 39-130 [facility] Comment on above: Performed By: #### C TERRA, 5643-2, 57582-2, CBCA, 88540-7 #### [facility] ([id number]) [address] [place] [address] 09563 ALT [Catalytic activity/Vol] 29 U/L Normal 0-31 [facility] Comment on above: Performed By: #### C TERRA, 5643-2, 11338-1, CBCA, 83129-9 #### [facility] ([id number]) [address] [place] [address] 66578 Anion gap [Moles/Vol] 11 mmol/L Normal 5-15 [facility] Comment on above: Performed By: #### C TERRA, 5643-2, 01903-0, CBCA, 68983-5 #### [facility] ([id number]) [address] [place] [address] 15206 AST [Catalytic activity/Vol] 19 U/L Normal 0-41 [facility] Comment on above: Performed By: #### C TERRA, 5643-2, 85424-4, CBCA, 85381-1 #### [facility] ([id number]) [address] [place] [address] 19940 Bilirubin [Mass/Vol] 0.7 mg/dL Normal 0.3-1.2 [facility] Comment on above: Performed By: #### C TERRA, 5643-2, 99051-7, CBCA, 48754-7 #### [facility] ([id number]) [address] [place] [address] 07912 Calcium [Mass/Vol] 9.1 mg/dL Normal 8.5-10.5 [facility] Comment on above: Performed By: #### C TERRA, 5643-2, 79355-5, CBCA, 00017-6 #### [facility] ([id number]) [address] [place] [address] 47589 Chloride [Moles/Vol] 101 mmol/L Normal 98-109 [facility] Comment on above: Performed By: #### C TERRA, 5643-2, 57946-0, CBCA, 21272-8 #### [facility] ([id number]) [address] [place] [address] 21496 CO2 [Moles/Vol] 27 mmol/L Normal 22-32 [facility] Comment on above: Performed By: #### Jolene ELLISON, 5643-2, 21352-0, CBCA, 27100-6 #### [facility] ([id number]) [address] [place] [address] 85848 Creatinine [Mass/Vol] 1.15 mg/dL High 0.40-1.00 [facility] Comment on above: Result Comment: METH OD TRACEABLE TO IDMS STANDARD Performed By: #### C TERRA, 5643-2, 53442-3, CBCA, 80930-4 #### [facility] ([id number]) [address] [place] [address] 96180 GFR/1.73 sq M.predicted among non-blacks MDRD (S/P/Bld) [Vol rate/Area] 54 mL/min/{1.73_m2} Low >59 Pr [facility] Comment on above: Result Comment: Reported eGFR is based on the CKD-EPI 2020 equation that does not use a race coefficient. Performed By: #### C TERRA, 5643-2, 83392-8, CBCA, 90363-2 #### [facility] ([id number]) [address] [place] [address] 36430 Glucose [Mass/Vol] 77 mg/dL Normal 65-99 [facility] Comment on above: Performed By: #### C TERRA, 5643-2, 20052-9, CBCA, 40880-8 #### [facility] ([id number]) [address] [place] [address] 57828 Potassium [Moles/Vol] 3.4 mmol/L Low 3.5-5.0 [facility] Comment on above: Performed By: #### C TERRA, 5643-2, 56492-0, CBCA, 07621-5 #### [facility] ([id number]) [address] [place] [address] 48381 Protein [Mass/Vol] 7.9 g/dL Normal 6.0-8.0 [facility] Comment on above: Performed By: #### C TERRA, 5643-2, 40145-4, CBCA, 99996-0 #### [facility] ([id number]) [address] [place] [address] 71026 Sodium [Moles/Vol] 139 mmol/L Normal 134-146 [facility] Comment on above: Performed By: #### C TERRA, 5643-2, 23317-2, CBCA, 21927-8 #### [facility] ([id number]) [address] [place] [address] 04480 Urea nitrogen [Mass/Vol] 16 mg/dL Normal 5-27 [facility] Comment on above: Performed By: #### C TERRA, 5643-2, 60505-8, CBCA, 80298-0 #### [facility] ([id number]) [address] [place] [address] 62221 Comprehensive metabolic pane tramaine 10-19-2023 Albumin [Mass/Vol] 3.8 g/dL 3.2 - 5.3 g/dL [facility] ALP [Catalytic activity/Vol] 87 U/L 39 - 130 U/L [facility] ALT No additional P-5'-P [Catalytic activity/Vol] 29 U/L 0 - 31 U/L [facility] Anion gap [Moles/Vol] 11 mmol/L 5 - 15 mmol/L [facility] AST [Catalytic activity/Vol] 19 U/L 0 - 41 U/L [facility] Bilirubin [Mass/Vol] 0.7 mg/dL 0.3 - 1 .2 mg/dL [facility] Calcium [Mass/Vol] 9.1 mg/dL 8.5 - 10. 5 mg/dL [facility] Chloride [Moles/Vol] 101 mmol/L 98 - 10 9 mmol/L [facility] CO2 [Moles/Vol] 27 mmol/L 22 - 32 mmol/L [facility] Creatinine [Mass/Vol] 1.15 mg/dL High 0.40 - 1.00 mg/dL [facility] Comment on above: METHOD TRACEABLE TO [facility] STANDARD eGFR (CKD-EPI)non-race dependent 54 Low - PINF [facility] Comment on above: Reported eGFR is based on the CKD-EPI 2020 equation that does not use a race coefficient. Glucose [Mass/Vol] 77 mg/dL 65 - 99 mg/dL [facility] Interpretation and review of laboratory results Abnormal [facility] Potassium [Moles/Vol] 3.4 mmol/L Low 3.5 - 5.0 mmol/L [facility] Protein [Mass/Vol] 7.9 g/dL 6.0 - 8.0 g/dL [facility] Sodium [Moles/Vol] 139 mmol/L 134 - 146 mmol/L [facility] Urea nitrogen [Mass/Vol] 16 mg/dL 5 - 27 mg/dL [facility] ETHANOLon 10-19-2023 Ethanol [Mass/Vol] mg/dL Normal 0.00-0.08 [facility] Comment on above: Result Comment: This report is intended for use in clinical monitoring or management of patients. Performed By: #### C TERRA, 5643-2, 77257-5, CBCA, 92027-9 #### [facility] ([id number]) [address] [place] [address] 53656 Ethanolon 10-19-2023 Ethanol [Mass/Vol] g/dL 0.00 - 0.08 g/dL [facility] Comment on above: This report is intended for use in clinical monitoring or management of patients. Laboratory - Microbiology an d Antimicrobial susceptibilityon 10-19-2023 FLUAV+FLUBV RNA MARQUITA+probe Ql (Unsp spec) Negative Negative^N egative [facility] MAGNESIUMon 10-19-2023 Magnesium [Mass/Vol] 2.0 mg/dL Normal 1.8-2.6 [facility] Comment on above: Performed By: #### C TERRA, 5643-2, 13784-0, CBCA, 97323-7 #### [facility] ([id number]) [address] [place] [address] 06396 Magnesiumon 10-19-2023 Magnesium [Mass/Vol] 2.0 mg/dL 1.8 - 2 .6 mg/dL [facility] No Panel Informationon 10-19 [facility] SARS/FLU A+B/RSV by NAAT/Mol ecularon 10-19-2023 SARS/FLU A+B/RSV by NAAT/Molecular FLU A PCR Negative (qualifier value) FLU B PCR Negative (qualifier value) RSV by PCR Negative (qualifier value) SARS CoV 2 Detected (qualifier value) NOTE The Xpert Xpress SARS-CoV-2/Flu/RSV Plus test is a rapid, multiplexed real-time RT-PCR test intended for the simultaneous qualitative detection and differentiation of SARS-CoV-2, influenza A, influenza B and respiratory syncytial virus (RSV) viral RNA from individuals suspected of respiratory viral infection consistent with COVID-19 by their healthcare provider. This test has not been validated in asymptomatic patients. The Xpert Xpress SARS-CoV-2 test is intended for use by qualified and trained operators who are performing tests using either [employer] or autoGraph systems and is limited to laboratories that meet the CLIA requirements to perform high and moderate complexity tests. The Xpert Xpress SARS-CoV-2/Flu/RSV Plus is only for use under the Food and Drug Administration's Emergency Use Authorization. Results are for the simultaneous detection and differentiation of SARS-CoV-2, influenza A, influenza B and RSV nucleic acids in clinical specimens. SARS-CoV-2, influenza A, influenza B and RSV RNA identified by this test are generally detectable in upper respiratory samples during the acute phase of infection. Positive results are indicative of the presence of the identified virus, but do not rule out bacterial infection or co-infection with other pathogens not detected by this test. Clinical correlation with patient history and other diagnostic information is necessary to determine patient infection status. The agent detected may not be the definite cause of disease. Negative results do not preclude SARS-CoV-2, influenza A, influenza B and RSV infection and should not be used as the sole basis for treatment or other patient management decisions. Negative results must be combined with clinical observations, patient history and epidemiological information. An Invalid result may occur with specimen-associated inhibition unable to be resolved with specimen repeat. Fact Sheet for Healthcare Providers: https://www.fda.gov/ media/831643/downloa d Fact Sheet for Patients: https://www.fda.gov/ media/654549/downloa d Normal [facility] Comment on above: Performed By: #### C OVFLR #### [facility] ([id number]) [address] [place] [address], [place] [address] SARS/FLU A+B/RSV by NAAT/Mol ecular (M4RT Collection Tube)on 10-19-2023 Interpretation and review of laboratory results Abnormal [facility] RSV RNA MARQUITA+probe Nom (Unsp spec) Negative Negative^N egative [facility] SARS-CoV-2 (COVID-19) RNA MARQUITA+probe Ql (Resp) Detected Abnormal Not Detected^N ot Detected [facility] Comment on above: NOTE The Xpert Xpress SARS-CoV-2/Flu/RSV Plus test is a rapid, multiplexed real-time RT-PCR test intended for the simultaneous qualitative detection and differentiation of SARS-CoV-2, influenza A, influenza B and respiratory syncytial virus (RSV) viral RNA from individuals suspected of respiratory viral infection consistent with COVID-19 by their healthcare provider. This test has not been validated in asymptomatic patients. The Xpert Xpress SARS-CoV-2 test is intended for use by qualified and trained operators who are performing tests using either [employer] or [employer] systems and is limited to laboratories that meet the CLIA requirements to perform high and moderate complexity tests. The Xpert Xpress SARS-CoV-2/Flu/RSV Plus is only for use under the Food and Drug Administration's Emergency Use Authorization. Results are for the simultaneous detection and differentiation of SARS-CoV-2, influenza A, influenza B and RSV nucleic acids in clinical specimens. SARS-CoV-2, influenza A, influenza B and RSV RNA identified by this test are generally detectable in upper respiratory samples during the acute phase of infection. Positive results are indicative of the presence of the identified virus, but do not rule out bacterial infection or co-infection with other pathogens not detected by this test. Clinical correlation with patient history and other diagnostic information is necessary to determine patient infection status. The agent detected may not be the definite cause of disease. Negative results do not preclude SARS-CoV-2, influenza A, influenza B and RSV infection and should not be used as the sole basis for treatment or other patient management decisions. Negative results must be combined with clinical observations, patient history and epidemiological information. An Invalid result may occur with specimen-associated inhibition unable to be resolved with specimen repeat. Fact Sheet for Healthcare Providers: https://www.fda.gov/media/156717/download Fact Sheet for Patients: https://www.fda.gov/media/895183/download [facility] TROPONIN Ion 10-19-2023 Troponin I.cardiac [Mass/Vol] ng/mL Normal 0.00-0.04 [facility] Comment on above: Performed By: #### C MP, 5643-2, 48418-8, CBCA, 94660-4 #### [facility] ([id number]) [address] [place] [address], [place] [address] Troponin Ion 10-19-2023 Troponin I.cardiac [Mass/Vol] ng/mL 0.00 - 0.04 ng/mL [facility] Troponin I.cardiac [Mass/Vol ]on 10-19-2023 [facility] XR CHEST 1 VWon 10-19-2023 XR CHEST 1 VW XR CHEST 1 VW CLINICAL INFORMATION: Dyspnea, acute chest pain, left eighth and ninth rib fractures. TECHNIQUE: Chest, 1 view. COMPARISON: Chest radiograph 06/06/2023. Chest CT from yesterday. FINDINGS Cardiomediastinal silhouette does not appear significantly changed. Left lung base opacification. Displaced left eighth and ninth rib fractures. IMPRESSION: * No significant interval change since yesterday. Left lung base opacifications most likely represent scarring and atelectasis, though early pneumonia cannot be excluded in the appropriate clinical setting. Approved by Resident Kehinde Hensley MD on 10/19/2023 7:46 PM Shivam Chaudhry MD have personally reviewed the image(s) and agree with and/or edited the report Finalized by Shivam Hendrix MD on 10/19/2023 7:53 PM Normal [facility] XR Chest Single viewon 10-19 CLINICAL INFORMATION: Dyspnea, acute chest pain, left eighth and ninth rib fractures. TECHNIQUE: Chest, 1 view. COMPARISON: Chest radiograph 06/06/2023. Chest CT from yesterday. FINDINGS Cardiomediastinal silhouette does not appear significantly changed. Left lung base opacification. Displaced left eighth and ninth rib fractures. IMPRESSION: * No significant interval change since yesterday. Left lung base opacifications most likely represent scarring and atelectasis, though early pneumonia cannot be excluded in the appropriate clinical setting. Approved by Resident Kehinde Hensley MD on 10/19/2023 7:46 PM Shivam Chaudhry MD have personally reviewed the image(s) and agree with and/or edited the report Finalized by Shivam Hendrix MD on 10/19/2023 7:53 PM [facility] Shivam Hendrix MD - 10/19/2023 CLINICAL INFORMATION: Dyspnea, acute chest pain, left eighth and ninth rib fractures. TECHNIQUE: Chest, 1 view. COMPARISON: Chest radiograph 06/06/2023. Chest CT from yesterday. FINDINGS Cardiomediastinal silhouette does not appear significantly changed. Left lung base opacification. Displaced left eighth and ninth rib fractures. IMPRESSION: * No significant interval change since yesterday. Left lung base opacifications most likely represent scarring and atelectasis, though early pneumonia cannot be excluded in the appropriate clinical setting. Approved by Resident Kehinde Hensley MD on 10/19/2023 7:46 PM Shivam Chaudhry MD have personally reviewed the image(s) and agree with and/or edited the report Finalized by Shivam Hendrix MD on 10/19/2023 7:53 PM [facility] Study observation (narrative) [employer] XR Chest Single viewOrdered By: Shivam Hendrix on 10-19-2023 [facility] Work Phone: CT CHEST WO CONTon CT CHEST WO CONT CT CHEST WO CONT Indication: Chest trauma blunt. TECHNIQUE: Unenhanced CT of the chest is performed. Lack of IV contrast significantly compromises evaluation of vascular structures especially in the setting of trauma. No prior comparison. FINDINGS: Thyroid is not enlarged in its visualized portion. Thoracic aorta shows normal caliber. Pulmonary outflow tract is not significantly dilated. Extensive coronary artery calcification and or stents noted. No significant mediastinal or hilar lymphadenopathy appreciated. A pleural pericardial effusion is not seen. The heart appears mildly enlarged. Images through upper most abdomen show postsurgical changes about the stomach. There is mild bilateral adrenal hyperplasia which is unchanged. Lung windows show mosaic attenuation greatest within lung bases. There is a groundglass nodule of the left upper lobe measuring up to 11.5 mm with solid component measuring 4 mm. Bronchial wall thickening within lower lobe region noted. Additional left upper lobe nodule shows lobulated margin without calcification and measures 6 mm. Small nodule within lower lobe region would be difficult to exclude with airspace process present. Bone windows show fracture left posterior lateral eighth and ninth ribs with minimal displacement. No pneumothorax seen. Vertebral body heights and alignment are satisfactory. IMPRESSION: 1. Mildly displaced left posterior lateral eighth and ninth rib fractures. 2. Mosaic attenuation within lung bases with bronchial wall thickening typically small airway disease. Portion of the appearance could represent some pulmonary contusion. 3. Worrisome lesion left upper lobe which is predominantly groundglass with small solid components. Solid components measure only 4 mm. Additional solid lobulated nodule measures 6 mm. Follow-up exam in 6 months recommended. 4. Compromised evaluation performed without IV contrast. All CT scans at this facility use dose modulation, iterative reconstruction, and/or weight based dosing when appropriate to reduce radiation dose to as low as reasonably achievable. Finalized by Amina Ramírez MD on 10/18/2023 10:15 AM Normal [facility] 08-31-2023 CNPN Telephone (GASTNO) HONEY MONTES ([id number]) 1960 F Date Time Provider Department 08/31/23 ROSANA MCHUGH During your visit today, we recorded the following information about you: Lisa Elizabeth RN 08/31/2023 12:27 PM Signed ----- Message from Rosana Mchugh MD sent at 08/31/2023 9:36 AM EST ----- Bx with inflammation in the stomach lining Its a pre-cancerous condition Repeat EGD within 3 months for mapping bx Lisa Elizabeth RN 08/31/2023 12:[address] Mchugh, please review and sign pended order for EGD with mapping biopsies to be done in 3 months. [place] - once order is signed, please call patient to schedule. Thanks! KVNG Fuentes Christina 09/01/2023 2:52 PM Signed Phone rings fast busy - sent mychart Merline Aguilar 09/04/2023 10:01 AM Signed Left message on voicemail for patient to call and schedule Merline Aguilar 09/05/2023 12:51 PM Signed Attempted to call patient phone is busy Miranda Martinez 09/08/2023 1:56 PM Signed Called and left detailed message for patient to call to schedule procedure with gastroenterology. Will follow up. Patient provided with direct extension to reach surgical coordinators. If patient calls back, please transfer to [phone] or [phone]. Andres Martinezina 09/12/2023 9:07 AM Signed FINAL ATTEMPT Called and left detailed message for patient to call to schedule procedure with gastroenterology. Will follow up. Patient provided with direct extension to reach surgical coordinators. If patient calls back, please transfer to [phone] or [phone]. Allergies As of Date: 08/31/2023 (No Known Allergies) Date Reviewed: 08/25/2023 Reviewed by: Torrie Moreno RN - Fully Assessed Reason for Visit: Orders [681] Appointment [186] Primary Visit Diagnosis:Intestinal metaplasia of stomach [K31.A0] Order(s):EGD DIAGNOSTIC [GI9] Order #: [id number] FUTURE Prescriptions as of 09/12/2023 - isosorbide mononitrate ER (IMDUR) 30 mg 24 hr tablet 1 tablet in the morning Orally Once a day - furosemide (LASIX) 20 mg tablet Take 1 tablet every day by oral route as needed. - fludrocortisone (FLORINEF) 0.1 mg tablet Take 1 tablet by mouth once daily. - aspirin, enteric coated (ASPIRIN, ENTERIC COATED) 81 mg EC tablet Take 81 mg by mouth. - nitroglycerin sublingual (NITROQUICK) 0.[address] 1 TABLET (0.4 MG) BY SUBLINGUAL ROUTE AT 1ST SIGN OF ATTACK; MAY REPEAT EVERY 5 MINUTES UP TO 3 TABS; IF NO RELIEF SEEK MEDICAL HELP - potassium chloride (K-TAB) 10 mEq tablet Take 1 tablet twice a day by oral route with meals. - naloxegol (MOVANTIK) 25 mg tablet Take 1 tablet by mouth once daily. - potassium (POTASSIMIN ORAL) Take by mouth. - ferrous sulfate 325 mg (65 mg iron) tablet Take 325 mg by mouth daily with breakfast. - pantoprazole DR (PROTONIX) 40 mg tablet Take 40 mg by mouth once daily. - iv contrast (will be provided with radiology test) CT ABD/PEL -Inject, intravenously, once for 1 dose.No IV access, insert saline lock prior to the beginning of sedation, infusion, injection of imaging exam. Discontinue saline lock post exam. If Pt. has a central line or IVAD, may access for administration according to line specific nursing protocol. Once exam is complete flush line and de-access according to line specific nursing protocol in the CT contrast administration guidelines link. - midodrine (PROAMITINE) 5 mg tablet Take 5 mg by mouth three times daily. - oxyCODONE-acetaminop hen (PERCOCET) 7.5-325 mg tablet Take 1 tablet by mouth every 12 hours as needed for pain. - DULCOLAX, BISACODYL, ORAL Take by mouth once daily. Patient takes 10 tablets daily in order to have a bowel movement. - ALPRAZolam (XANAX) 1 mg tablet Take 1 mg by mouth. - Blood-Glucose Meter ([place] ULTRA2 METER) monitoring kit USE UTD - lancets (ONE TOUCH DELICA) 33 gauge TEST FASTING QAM - morphine ER (ALLYSSA) 30 mg 24 hr capsule Take 30 mg by mouth twice daily. - oxyCODONE-acetaminop hen (PERCOCET) 5-325 mg tablet Take 1 tablet by mouth three times daily as needed. - naloxegol (MOVANTIK) 25 mg tablet Take 1 tablet by mouth once daily. - polyethylene glycol 3350 (MIRALAX, GLYCOLAX) 17 gram/dose powder Use as directed for Miralax / Gatorade Bowel Prep Kit - Bisacodyl (DULCOLAX) 5 mg tab Use as directed for Miralax / Gatorade Bowel Prep Kit - clopidogrel (PLAVIX) 75 mg tablet Take 75 mg by mouth once daily. - gabapentin (NEURONTIN) 600 mg tablet Take 600 mg by mouth three times daily. - metformin HCl (METFORMIN ORAL) Take 500 mg by mouth two times a day. - metoprolol tartrate, short acting, (LOPRESSOR) 25 mg tablet Take 25 mg by mouth twice daily. - atorvastatin (LIPITOR) 80 mg tablet Take 80 mg by mouth once daily. - zolpidem (AMBIEN) 10 mg Take 10 mg by mouth at bedtime as nee (more content not included)... Normal [facility] ANES POSTPROC EVALon 023 ANES POSTPROC EVAL HNO ID: [id number] Author: Ruben Davis MD Service: Anesthesiology Author Type: Anesthesiologist Type: Anesthesia Postprocedure Evaluation Filed: 08/25/2023 10:15 AM Note Text: POST ANESTHESIA EVALUATION NOTE : 1960 Procedure Summary Date: 08/25/23 Room / Location: Procedures Anesthesia Start: 735 Anesthesia Stop: 747 Procedure: EGD DIAGNOSTIC Diagnosis: Abdominal distension History of partial gastrectomy Gastric ulcer with perforation, unspecified chronicity (HCC) Hx of cholecystectomy (Abdominal pain) Scheduled Providers: Rosana Mchugh MD; Gabriela Morgan APRN.SCIENTIFIC DIRECTOR; Ruben Davis MD; Samara Cade RN Responsible Provider: Ruben Davis MD Anesthesia Type: MAC ASA Status: 2 Anesthesia Type: MAC Last Vitals Vitals Value Taken Time BP 103/56 08/25/23 0821 Temp 36.1 ?C (97 ?F) 08/25/23 0748 HR SpO2 56 08/25/23 0816 Resp 18 08/25/23 08 SpO2 100 % 08/25/23820 Vitals shown include unvalidated device data. Post Anesthesia Patient Status Patient Evaluation: bedside. Anticipated Disposition: phase 2 then home. Neurological Status: aware and responsive. Pulmonary Status: breathing comfortably on room air Airway Control: returned to baseline unsupported. Cardiovascular Status: stable. Pain Management: clinically adequate Postoperative Hydration: acceptable. Intraoperative Events: no significant anesthesia events Post Operative Nausea/Vomiting Status: no significant post operative nausea or vomiting Recommendation: continue current plan of care. Anesthesia Observations No Documentation SIGNATURE: Ruben Davis MD PATIENT NAME: Honey Montes DATE: August 25, 2023 TIME: 10:15 AM CSN: [id number] [facility] ANES PRE-OPon 08-25-2023 ANES PRE-OP HNO ID: [id number] Author: Ruben Davis MD Service: Anesthesiology Author Type: Anesthesiologist Type: Anesthesia Preprocedure Evaluation Filed: 08/25/2023 7:31 AM Note Text: ANESTHESIOLOGY DAY OF SURGERY NOTE : 1960 Procedure Information Date/Time: 08/25/2330 Scheduled providers: Rosana Mchugh MD; Gabriela Morgan APRN.SCIENTIFIC DIRECTOR; Ruben Davis MD; Samara Cade RN Procedure: EGD DIAGNOSTIC Location: Procedures Estimated body mass index is 20.43 kg/m? as calculated from the following: Height as of 06/15/23: 162.6 cm (5' 4 ). Weight as of 07/11/23: 54 kg (119 lb). Most recent hematocrit and potassium results: Hematocrit 34.8 09/13/2020 Potassium 4.0 08/26/2022 Relevant Problems CARDIO (+) Atherosclerotic heart disease of [place] coronary artery without angina pectoris (+) Essential hypertension (+) NSTEMI (non-ST elevated myocardial infarction) (HCC) ENDO (+) Type 2 diabetes mellitus without complication, without long-term current use of insulin (HCC) NEURO-PSYCH (+) Personal history of malignant neoplasm of breast I - PHYSICAL EVALUATION AIRWAY Patient intubated: No. Tracheostomy tube not present Mallampati: II. TM distance: >3 FB. Neck ROM: full ROM without neurological symptoms. Mouth opening: adequate. Short neck: no. Thick neck: no DENTAL Dental findings: teeth intact. Additional exam findings: no II - ANESTHESIA PLAN ASA Score: 2 Anesthetic Plan: MAC The patient is not a current smoker. NPO Status: adequate Beta Zenon Monitoring Plan Monitoring plan: standard ASA. Post Procedure Analgesic Plan Postoperative analgesic plan: multimodal analgesia. Informed Consent Anesthetic risks, benefits, alternatives, personnel and consent discussed: yes. Patient / Responsible [employer] Party agrees to proceed: yes Patient / Surrogate agrees to blood products: blood products not planned Significant changes in the patient condition since the History and Physical, not otherwise documented in primary service progress note: no. Potential Anesthesia issues that may suggest increased risk of complications or contraindication to planned procedure: none. No vitals data found for the desired time range. Outpatient Medications as of 08/25/2023 Medication Sig - isosorbide mononitrate ER (IMDUR) 30 mg 24 hr tablet 1 tablet in the morning Orally Once a day - furosemide (LASIX) 20 mg tablet Take 1 tablet every day by oral route as needed. - fludrocortisone (FLORINEF) 0.1 mg tablet Take 1 tablet by mouth once daily. - aspirin, enteric coated (ASPIRIN, ENTERIC COATED) 81 mg EC tablet Take 81 mg by mouth. - nitroglycerin sublingual (NITROQUICK) 0.[address] 1 TABLET (0.4 MG) BY SUBLINGUAL ROUTE AT 1ST SIGN OF ATTACK; MAY REPEAT EVERY 5 MINUTES UP TO 3 TABS; IF NO RELIEF SEEK MEDICAL HELP - potassium chloride (K-TAB) 10 mEq tablet Take 1 tablet twice a day by oral route with meals. - naloxegol (MOVANTIK) 25 mg tablet Take 1 tablet by mouth once daily. - potassium (POTASSIMIN ORAL) Take by mouth. - ferrous sulfate 325 mg (65 mg iron) tablet Take 325 mg by mouth daily with breakfast. - pantoprazole DR (PROTONIX) 40 mg tablet Take 40 mg by mouth once daily. - iv contrast (will be provided with radiology test) CT ABD/PEL -Inject, intravenously, once for 1 dose.No IV access, insert saline lock prior to the beginning of sedation, infusion, injection of imaging exam. Discontinue saline lock post exam. If Pt. has a central line or IVAD, may access for administration according to line specific nursing protocol. Once exam is complete flush line and de-access according to line specific nursing protocol in the CT contrast administration guidelines link. - midodrine (PROAMITINE) 5 mg tablet Take 5 mg by mouth three times daily. - oxyCODONE-acetaminop hen (PERCOCET) 7.5-325 mg tablet Take 1 tablet by mouth every 12 hours as needed for pain. - DULCOLAX, BISACODYL, ORAL Take by mouth once daily. Patient takes 10 tablets daily in order to have a bowel movement. - ALPRAZolam (XANAX) 1 mg tablet Take 1 mg by mouth. - Blood-Glucose Meter (ONETOUCH ULTRA2 METER) monitoring kit USE UTD - lancets (ONE TOUCH DELICA) 33 gauge TEST FASTING QAM - morphine ER (ALLYSSA) 30 mg 24 hr capsule Take 30 mg by mouth twice daily. - oxyCODONE-acetaminop hen (PERCOCET) 5-325 mg tablet Take 1 tablet by mouth three times daily as needed. - naloxegol (MOVANTIK) 25 mg tablet Take 1 tablet by mouth once daily. - polyethylene glycol 3350 (MIRALAX, GLYCOLAX) 17 gram/dose powder Use as directed for Miralax / Gatorade Bowel Prep Kit - Bisacodyl (DULCOLAX) 5 mg tab Use as directed for Miralax / Gatorade Bowel Prep Kit - clopidogrel (PLAVIX) 75 mg tablet Take 75 mg by mouth once daily. - gabapentin (NEURONTIN) 600 mg tablet Take 600 mg by mouth three times daily. - metformin HCl (METFORMIN ORAL) Take 500 mg by mouth twice daily. (Patient not taking: (more content not included)... [facility] HISTORY PHYSICALon HISTORY PHYSICAL HNO ID: [id number] Author: Rosana Mchugh MD Service: Gastroenterology Author Type: Physician Type: HANDP Filed: 08/25/2023 7:39 AM Note Text: HISTORY AND PHYSICAL Honey Montes, 63 year old female Current history and physical on file: Yes Is a new History and Physical required for today's visit? Yes Indication for procedure: Abdominal pain PROCEDURE(S) SCHEDULED FOR: EGD (Esophagogastroduode noscopy) with or without biopsies, removal of polyps or lesions, dilation ( any means), treatment of bleeding ( any means), Barrx treatment of Jeanmarie's Esophagus, image tube placement or cryo therapy treatment based on clinical findings. BASELINE BEHAVIOR: Calm BASELINE ORIENTATION: A AND O x3 All medications and allergies reviewed: Yes Skin Assessment: Warm dry mucus membranes pink Airway/Respiratory Assessment: Airway: visualization of the uvula- Yes Mouth: opening greater than 2 fingerbreadths- Yes Neck: full range of motion- Yes Breath sounds clear/equal- Yes Cardiac Assessment: Regular rate and rhythm without murmur Abdominal Assessment: Abdomen soft, non-tender, no masses or organomegaly. Sedation Plan: MAC Additional Comments: None Rosana Mchugh MD [facility] SURGICAL PATHOLOGYon 023 ADDENDUM 1: [facility] Comment on above: Order Comment: Speci men Type: TISSUE SPECIMEN Ordering Facility: [facility] Address: [address] [place] [address] Result Comment: Tawana maddox the background of chronic gastritis, a Helicobacter pylori immunostain is performed on block B and is negative for Helicobacter pylori organisms. Laboratory Developed Test (LDT) Disclaimer: Performance characteristics of immunohistochemical, immunofluorescent and chromogenic in-situ hybridization tests have been determined by the performing laboratory within [facility]???s [place] [place] [facility] and Laboratory Medicine Reader ([facility], [facility], [facility], [facility], [facility], [facility], [facility]) in a manner consistent with CLIA requirements. One or more of these tests have not been cleared or approved by the FDA. [facility] is regulated under CLIA as qualified to perform high-complexity testing. These tests are used for clinical purposes. They should not be regarded as investigational or for research. Positive and negative controls stain appropriately. Addendum electronically signed by Rangel Sheehan MD on 08/31/2023 at 9:18 AM Performed By: #### S #### [facility] CLIA [id number] [address] [place] [address] LAB CLIA [id number] [address] [place] [address] CASE REPORT [facility] Comment on above: Order Comment: Speci men Type: TISSUE SPECIMEN Ordering Facility: [facility] Address: [address] [place] [address] Result Comment: [facility] Pathology Report Case: [id number] Authorizing Provider: Rosana Mchugh MD Collected: 08/25/2023 07:43 AM Ordering Location: Procedures Received: 08/25/2023 07:59 AM Pathologist: Rangel Sheehan MD Specimens: A) - SMALL INTESTINE BIOPSY B) - STOMACH BIOPSY Performed By: #### S #### [facility] CLIA [id number] [address] [place] [address] LAB CLIA [id number] [address] [place] [address] DIAGNOSIS COMMENT B. Immunohistochemical staining for Helicobacter pylori organisms is pending; the result will be reported as an addendum. [facility] Comment on above: Order Comment: Miryam men Type: TISSUE SPECIMEN Ordering Facility: [facility] Address: [address] [place] [address] Performed By: #### S #### [facility] CLIA [id number] [address] [place] [address] LAB CLIA [id number] [address] [place] [address] FINAL DIAGNOSIS [facility] Comment on above: Order Comment: Speci men Type: TISSUE SPECIMEN Ordering Facility: [facility] Address: [address] [place] [address] Result Comment: A. S mall intestine, biopsy: - Small intestinal mucosa with no pathologic diagnostic abnormality; negative for celiac disease, granulomas or dysplasia. B. Stomach, biopsy: - Gastric antral body type mucosa with intestinal metaplasia; see comment. Performed By: #### S #### [facility] CLIA [id number] [address] [place] [address] [place] [facility] CLIA [id number] [address] [place] [address] OF [place] FINAL PERFORMING LAB Normal [facility] Comment on above: Order Comment: Speci men Type: TISSUE SPECIMEN Ordering Facility: [facility] Address: [address] [place] [address] Result Comment: Diag nostic interpretation performed at [facility], [id number] [place] [address] CLIA# [id number] Laborer Driver: Rangel Sheehan M.D. Performed By: #### S #### [facility] CLIA [id number] [place] [address] [place] [facility] CLIA [id number] [address] [place] [address] GROSS DESCRIPTION Normal [facility] Comment on above: Order Comment: Speci men Type: TISSUE SPECIMEN Ordering Facility: [facility] Address: [address] [place] [address] Result Comment: A. S MALL INTESTINE BIOPSY Received in formalin are two pieces of cano, soft tissue aggregating to 0.3 x 0.2 x 0.2 cm. Totally submitted in one cassette. B. STOMACH BIOPSY Received in formalin are multiple pieces of cano, soft tissue aggregating to 0.8 x 0.4 x 0.2 cm. Totally submitted in one cassette. JTS August 25, 2023 4:15 PM Gross examination performed at [facility], [address] [place] [address] Performed By: #### S #### [facility] CLIA [id number] [address] [place], [place] [id number] [place] [facility] CLIA [id number] [address] [facility] [address] OF FLO Upper GI endoscopy 023 Upper GI endoscopy [facility] Gastrointestinal Endoscopy Patient Name: Honey Montes Procedure Date: 08/25/2023 7:13 AM Date of : 1960 Admit Type: Outpatient Age: 63 Room: [place] [address] Gender: Female Note Status: Finalized Attending MD: Rosana Mchugh MD Procedure: Upper GI endoscopy Indications: Abdominal pain Providers: Rosana Mchugh MD Patient Profile: This is a 63 year old female. Refer to note in patient chart for documentation of history and physical. Referring Physician: Rosana Mchugh MD (Referring MD) Medicines: Propofol per Anesthesia Complications: No immediate complications. Requesting Provider: Procedure: Pre-Anesthesia Assessment: - Prior to the procedure, a History and Physical was performed, and patient medications and allergies were reviewed. The patient is competent. The risks and benefits of the procedure and the sedation options and risks were discussed with the patient. All questions were answered and informed consent was obtained. Patient identification and proposed procedure were verified by the physician and the nurse in the pre-procedure area in the procedure room. Mental Status Examination: alert and oriented. Airway Examination: normal oropharyngeal airway and neck mobility. CV Examination: normal. Prophylactic Antibiotics: The patient does not require prophylactic antibiotics. Prior Anticoagulants: The patient has taken Plavix (clopidogrel). After reviewing the risks and benefits, the patient was deemed in satisfactory condition to undergo the procedure. The anesthesia plan was to use monitored anesthesia care (MAC). Immediately prior to administration of medications, the patient was re-assessed for adequacy to receive sedatives. The heart rate, respiratory rate, oxygen saturations, blood pressure, adequacy of pulmonary ventilation, and response to care were monitored throughout the procedure. The physical status of the patient was re-assessed after the procedure. After obtaining informed consent, the endoscope was passed under direct vision. Throughout the procedure, the patient's blood pressure, pulse, and oxygen saturations were monitored continuously. The Endosonoscope was introduced through the mouth, and advanced to the fourth part of duodenum. The upper GI endoscopy was accomplished without difficulty. The patient tolerated the procedure well. Moderate Sedation: MAC anesthesia was administered by the anesthesia team. Total Procedure Duration: 0 hours 4 minutes 24 seconds Findings: The Z-line was irregular and was found 35 cm from the incisors. LA Grade A (one or more mucosal breaks less than 5 mm, not extending between tops of 2 mucosal folds) esophagitis with no bleeding was found. A small hiatal hernia was present. Patchy moderately erythematous mucosa without bleeding was found in the stomach. Biopsies were taken with a cold forceps for histology. Evidence of a previous surgical anastomosis was found in the pylorus. This was characterized by healthy appearing mucosa. The examined duodenum was normal. Biopsies were taken with a cold forceps for histology. Impression: - Z-line irregular, 35 cm from the incisors. - LA Grade A reflux esophagitis with no bleeding. - Small hiatal hernia. - Erythematous mucosa in the stomach. Biopsied. - A previous surgical anastomosis was found, characterized by healthy appearing mucosa. - Normal examined duodenum. Biopsied. Recommendation: - Resume previous diet. - Continue present medications. - Resume Plavix (clopidogrel) at prior dose today. - Await pathology results. Attending Participation: I personally performed the entire procedure. Scope In: 7:41:07 AM Scope Out: 7:45:31 AM MD Rosana Emerson MD 08/25/2023 7:51:10 AM This report has been signed electronically by Rosana Mchugh MD Number of Addenda: 0 Note Initiated On: 08/25/2023 7:13 AM Estimated Blood Loss: Estimated blood loss: none. Normal [facility] 07-11-2023 [facility] Office Visit (FVGAST) HONEY MONTES ([id number]) 1960 F Date Time Provider Department 07/11/23 9:40 AM ROSANA MCHUGH FVDALIA During your visit today, we recorded the following information about you: Temperature Pulse Blood pressure Weight 97.4 degrees 75/minute 98/55 54 kg Rosana Mchugh MD 07/11/2023 11:05 AM Signed HPI: Honey Montes, 63 year old female, presents in the office today for No chief complaint on file.. 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 - No specimens collected. Cholecystectomy, jejunostomy, mesenteric mass excision, and proximal jejunum excision: 08/31/20: 1. Gallbladder, cholecystectomy (A) - Gallbladder with patchy acute inflammation. 2. Jejunostomy, excision (B) - Segment of small bowel with acute serositis and changes consistent with prior surgical site. - Two lymph nodes, negative for malignancy (0/2). 3. Mesenteric mass, excision (C) - Well-differentiated neuroendocrine tumor, grade 2, involving a lymph node (see comment). 4. Proximal jejunum, excision (D) - Segment of small bowel with patchy acute serositis and focal foreign body giant cell reaction. - One lymph node, negative for malignancy (0/1). EGD: 06/26/20: Dr. Banks: - Normal exam. - No specimens collected. Recent Imaging: CTAP: 06/06/23: IMPRESSION: Decrease in the severity of the distention of the small bowel, with what looks like multifocal jejunal intussusception in the left mid abdomen, mild residual distention and bowel wall prominence No suspicious fluid collection, gas or fluid seen in the adjacent mesentery; no suspicious fluid or gas around the anastomosis relating to prior gastric bypass Probable reactive lymph nodes in the mesentery without splenomegaly or suspicious retroperitoneal lymphadenopathy otherwise Unusual cystic appearing area in the pancreatic head distorting the CBD. This could be related to residual fluid filled distended duodenal diverticulum near the ampulla. Attention to this on follow-up imaging surveillance to check for clearing or decompression. MRI could further evaluate this particularly if persistent or worsening symptoms or persistent abnormal appearance of follow-up surveillance imaging No colonic obstruction. The large bowel is now relatively decompressed which may account for slight prominence of the distal colonic segment Residual groundglass and interstitial opacities throughout the lower lungs without consolidation or effusions. KUB: 06/06/23: IMPRESSION: Nonobstructive bowel gas pattern. Mild vascular congestion with basilar infiltrates which may reflect pneumonia/pneumoniti s or edema. CTAP: 06/05/23: IMPRESSION: Mural prominence throughout small bowel may reflect enteritis. Infectious or inflammatory etiologies are possible. No focal lesion is suspected. Suspected periampullary diverticulum at the pancreas. No definite pancreatic abnormality. MR Abdomen: 02/10/22: 1. No explanation for patient's pain. 2. Noncontributory findings described above. KUB: 02/09/22: No evidence of high-grade bowel obstruction. XR Upper GI: 01/15/22: No evidence of contrast leak or gross perforation. PET scan: 08/06/20: GA-68 DOTATATE AVID MASS LIKELY ARISING FROM THE DISTAL DUODENUM/PROXIMAL JEJUNUM COMPATIBLE WITH KNOWN NEUROENDOCRINE TUMOR. NO OTHER LESIONS WITH ABNORMAL TRACER UPTAKE. INTUSSUSCEPTION OF A SHORT SEGMENT OF JEJUNUM INTO THE STOMACH AT THE LEVEL OF THE GASTROJEJUNAL ANASTOMOSIS. CBC auto differential (06/07/2023 5:46 AM EDT) Component Value Ref Range White Blood Cells 10.1 4.0 - 11.0 X10E9/L RBC count 3.41 (L) 3.80 - 5.20 X10E12/L Hemoglobin 10.4 (L) 11.7 - 15.5 g/dL Hematocrit 31.2 (L) 35 - 47 % MCV 92 80 - 100 fL MCH 30.5 27 - 34 pg MCHC 33.3 32 - 36 g/dL RDW 17.6 (H) 11.5 - 15.0 % Platelets 224 150 - 450 X10E9/L MPV 9.2 7 - 12 fL % neutrophils 75.9 % % lymphocytes 16.3 % % monocytes 6.4 % % eosinophils 1.0 % % Basophils 0.4 % Neutrophils (more content not included)... Normal [facility] CNPNon 07-11-2023 CNPN Telephone ([id number]) HONEY MONTES ([id number]) 1960 F Date Time Provider Department 07/11/23 ROSANA MCHUGH [id number] During your visit today, we recorded the following information about you: Sophie Smith 07/11/2023 11:01 AM Signed Please call patient at [phone] to set up an EGD. This is her daughters cell. Patient to see if she needs to stop Plavix, thank you! Merline Aguilar 07/11/2023 12:30 PM Signed Left message on voicemail for patient to call and schedule Merline Aguilar 07/13/2023 12:39 PM Signed Left message on voicemail for patient to call and schedule EGD Merline Aguilar 07/14/2023 11:28 AM Signed Spoke to patients daughter she is scheduled for 08/[address] Mchugh at [facility] Allergies As of Date: 07/11/2023 (No Known Allergies) Date Reviewed: 07/11/2023 Reviewed by: Nissa Casas MA - Fully Assessed Prescriptions as of 08/07/2023 - isosorbide mononitrate ER (IMDUR) 30 mg 24 hr tablet 1 tablet in the morning Orally Once a day - furosemide (LASIX) 20 mg tablet Take 1 tablet every day by oral route as needed. - fludrocortisone (FLORINEF) 0.1 mg tablet Take 1 tablet by mouth once daily. - aspirin, enteric coated (ASPIRIN, ENTERIC COATED) 81 mg EC tablet Take 81 mg by mouth. - nitroglycerin sublingual (NITROQUICK) 0.[address] 1 TABLET (0.4 MG) BY SUBLINGUAL ROUTE AT 1ST SIGN OF ATTACK; MAY REPEAT EVERY 5 MINUTES UP TO 3 TABS; IF NO RELIEF SEEK MEDICAL HELP - potassium chloride (K-TAB) 10 mEq tablet Take 1 tablet twice a day by oral route with meals. - naloxegol (MOVANTIK) 25 mg tablet Take 1 tablet by mouth once daily. - potassium (POTASSIMIN ORAL) Take by mouth. - ferrous sulfate 325 mg (65 mg iron) tablet Take 325 mg by mouth daily with breakfast. - pantoprazole DR (PROTONIX) 40 mg tablet Take 40 mg by mouth once daily. - iv contrast (will be provided with radiology test) CT ABD/PEL -Inject, intravenously, once for 1 dose.No IV access, insert saline lock prior to the beginning of sedation, infusion, injection of imaging exam. Discontinue saline lock post exam. If Pt. has a central line or IVAD, may access for administration according to line specific nursing protocol. Once exam is complete flush line and de-access according to line specific nursing protocol in the CT contrast administration guidelines link. - midodrine (PROAMITINE) 5 mg tablet Take 5 mg by mouth three times daily. - oxyCODONE-acetaminop hen (PERCOCET) 7.5-325 mg tablet Take 1 tablet by mouth every 12 hours as needed for pain. - DULCOLAX, BISACODYL, ORAL Take by mouth once daily. Patient takes 10 tablets daily in order to have a bowel movement. - ALPRAZolam (XANAX) 1 mg tablet Take 1 mg by mouth. - Blood-Glucose Meter (XanodyneTOUCH ULTRA2 METER) monitoring kit USE UTD - lancets (ONE TOUCH DELICA) 33 gauge TEST FASTING QAM - morphine ER (ALLYSSA) 30 mg 24 hr capsule Take 30 mg by mouth twice daily. - oxyCODONE-acetaminop hen (PERCOCET) 5-325 mg tablet Take 1 tablet by mouth three times daily as needed. - naloxegol (MOVANTIK) 25 mg tablet Take 1 tablet by mouth once daily. - polyethylene glycol 3350 (MIRALAX, GLYCOLAX) 17 gram/dose powder Use as directed for Miralax / Gatorade Bowel Prep Kit - Bisacodyl (DULCOLAX) 5 mg tab Use as directed for Miralax / Gatorade Bowel Prep Kit - clopidogrel (PLAVIX) 75 mg tablet Take 75 mg by mouth once daily. - gabapentin (NEURONTIN) 600 mg tablet Take 600 mg by mouth three times daily. - metformin HCl (METFORMIN ORAL) Take 500 mg by mouth twice daily. - metoprolol tartrate, short acting, (LOPRESSOR) 25 mg tablet Take 25 mg by mouth twice daily. - atorvastatin (LIPITOR) 80 mg tablet Take 80 mg by mouth once daily. - zolpidem (AMBIEN) 10 mg Take 10 mg by mouth at bedtime as needed. - citalopram (CELEXA) 20 mg tablet Take 20 mg by mouth once daily. - tamoxifen (NOLVADEX) 20 mg tablet Take 20 mg by mouth once daily. Problem List As Of Date 07/11/2023 Noted Resolved Epigastric pain [R10.13] 04/20/2020 Personal history of malignant neoplasm of breas*04/20/2020 History of bariatric surgery [Z98.84] 04/20/2020 05/28/2020 Anxiety disorder, unspecified [F41.9] 04/20/2020 Atherosclerotic heart disease of [place] coronar*04/20/2020 Gastrointestinal hemorrhage, unspecified [K92.2]04/18/2020 09/13/2020 meterman (current) use of antithrombotics/anti *04/20/2020 Cigarette nicotine dependence without complicat*04/20/[address] of the abdomen [R93.5] 05/28/2020 Essential hypertension [I10] 08/28/2020 Other hyperlipidemia [E78.49] 08/28/2020 NSTEMI (non-ST elevated myocardial infarction) *08/28/2020 Type 2 diabetes mellitus without complication, *08/28/2020 Neuroendocrine carcinoma of small bowel (HCC) [*08/28/2020 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 Normal [facility] upper GI small bowelon IN upper GI small bowel [facility] Main [employer] [address] [place], [place] [id number] Fluoroscopy Report Signed Patient: Honey Montes MR#: [id number] 02 : 1960 Acct:[id number] Age/Sex: 63 / F ADM Date: 06/26/23 Loc: XD Room: Type: [facility] Attending Dr: Jr Sinha MD Copies to: Jr Sinha MD Ordering Provider: Jr Sinha MD Date of Service: 06/26/23 FL/IN upper GI small bowel: C7A.8 AIR CONTRAST UPPER GI SERIES WITH SMALL BOWEL SERIES CLINICAL HISTORY: Lower abdominal pain, constipation since small bowel surgery 2 years ago. COMPARISON: Outside CT abdomen and pelvis 06/06/2023 TECHNIQUE: Double contrast upper GI series was performed followed by small bowel series. Cumulative Air Kerma in mGy: 242.816 mGy FINDINGS: The esophagus appears normal in caliber without evidence for stricture, mass or ulcer. Gastroesophageal reflux was seen to level of the distal esophagus with tertiary contractions noted. Stomach demonstrates thickened folds suggestive of underlying gastritis. No ulcer or mass is seen. Postsurgical changes with gastrojejunostomy is present. Oral contrast transits the anastomosis without difficulty. Small bowel follow-through was then performed. Oral contrast was seen, probably within the colon within 2 hours. A normal fold pattern is seen. No dilatation or stricture is noted. No intussusception is seen. There appears be some degree of reflux of the given oral contrast into the duodenum. Additional fluoroscopic interrogation of the small bowel demonstrates no suspicious abnormality. Region of the terminal ileum appears grossly unremarkable. FL/FL upper GI small bowel IMPRESSION: 1. GASTROESOPHAGEAL REFLUX WAS SEEN TO LEVEL OF THE DISTAL ESOPHAGUS WITH TERTIARY CONTRACTIONS. NO ESOPHAGEAL STRICTURE, MASS OR ULCER IS SEEN. 2. POSTSURGICAL CHANGES ARE SEEN INVOLVING THE STOMACH AND SMALL BOWEL WITH THICKENED FOLDS OF THE STOMACH SUGGESTING UNDERLYING GASTRITIS. 3. SMALL BOWEL DEMONSTRATES NO ACUTE PROCESS. Impression dictated by: Zack Lara Jr., D.OMyranda06/26/2023 12:28 PM Dictation Location: [id number] Transcribed By: JERZY 06/26/23 1228 Dictated By: Zack Lara Jr, DO 06/26/23 122 Signed By: 06/26/23 1228 [facility] CNOVliana 06-15-2023 CNOV Office Visit ([id number]) HONEY MONTES ([id number]) 1960 F Date Time Provider Department 06/15/23 1:45 PM JR SINHA [id number] During your visit today, we recorded the following information about you: Temperature Pulse Blood pressure Weight 97.7 degrees 75/minute 97/64 52.6 kg Height 1.626 m Jr Sinha MD 06/16/2023 4:30 PM Signed Assessment ESTABLISHED PATIENT Honey Pereiraes is a 63 year old female with chronic abdominal pain Hx: neuroendocrine tumor resection along with jejunojejunostomy 08/31/2020 s/p Exploratory laparotomy, lysis of adhesions, resection of proximal jejunum and partial resection of D4 with resection of mesenteric mass, End-to-side duodenojejunostomy, [id number] jejunojejunostomy, Resection of the jejunojejunostomy, Cholecystectomy. 01/13/2022 s/p marginal ulcer perforation repair Chart Review: -ER OSH for acute abdominal pain [facility] ER Discharge Summary 06/06/23 INTERVAL HPI: She was in the [facility] ER recently and underwent a CT scan for abdominal pain. She has had chronic abdominal pain for quite some time and probably all of the time that have known her. Her CT noted and a dissection. She was offered an operation but did not go through surgery. She presents today otherwise feeling okay but continues on with pain which is not different from her usual pain. She is having bowel movements passing gas and otherwise at baseline PAST MEDICAL HISTORY Diagnosis Date Coronary artery disease Diabetes (HCC) History of transfusion HTN (hypertension) Hx of colonoscopy 2018 Hyperlipidemia Neuroendocrine carcinoma of small bowel (HCC) 2018 STEMI (ST elevation myocardial infarction) (HCC) 03/2018 s/p PTCA-SUNITHA Tobacco abuse PAST SURGICAL HISTORY Procedure Laterality Date COLONOSCOPY GEN ANES N/A 12/10/2020 normal colonoscopy COLONOSCOPY GEN ANES 12/24/2018 Fragments of Tubular Adenoma EGD 06/26/2020 Normal PARTIAL GASTRECTOMY 03/2020 s/p partial gastrectomy due to perforation ROTATOR CUFF REPAIR 11/2019 IMAGING UPDATE: 06/06/2023 CT A/P (OSH)- Images uploaded CT A/P 06/05/2023 (OSH) PHYSICAL EXAMINATION: BP 97/64 (BP Site: Right Arm, BP Position: Sitting, BP Cuff Size: Small Adult) Pulse 75 Temp 36.5 ?C (97.7 ?F) Ht 162.6 cm (5' 4 ) Wt 52.6 kg (116 lb) SpO2 100% BMI 19.91 kg/m? General Appearance: Well appearing, alert, in no acute distress, well-hydrated, well nourished.. Skin: Skin color, texture, turgor normal, no suspicious rashes or lesions. Abdomen: Normal abdominal exam, Abdomen soft, non-tender. Bowel sounds normal. No masses, organomegaly. IMPRESSION: Jejunojejunal intussusception PLAN: We will get a small bowel follow-through to see if she has persistent exception. They intussusception on the CT from 2 weeks ago was not causing obstruction, and currently she has no symptoms of obstruction. This is likely incidental. I spent a total of 20 minutes on the date of the service which included preparing to see the patient, [id number] patient care, completing clinical documentation, obtaining and/or reviewing separately obtained history, performing a medically appropriate examination, counseling and educating the patient/family/careg iver, ordering medications, tests, or procedures, communicating with other HCPs (not separately reported), independently interpreting results (not separately reported), communicating results to the patient/family/careg iver, and care coordination (not separately reported). MD Francis Sifuentes Bettie, MA 06/15/2023 1:57 PM Signed What is the reason for your visit today? Follow up Who is your referring physician? Are you having poor oral intake? NO Have you had unintentional weight loss of 15 lbs/7 Kg in the last 3-6 months? NO Bowels: constipated and diarrhea Wound: Temperature: No Drains: No Angela Mccarthy RN 06/15/2023 2:23 PM Signed To schedule x-ray, please call for imaging appointment. You can schedule at any [facility] facility using this appointment number. Your surgeon will determine follow up and plan of care after review of imaging. If you questions, please call our office at [phone]. Referring Provider: JR SINHA [[id number]] Allergies As of Date: 06/15/2023 (No Known Allergies) Date Reviewed: 06/15/2023 Reviewed by: Shakira Blanco MA - Fully Assessed Reason for Visit: Established Patient [175] Primary Visit Diagnosis:Neuroendoc rine carcinoma of small bowel (HCC) [C7A.8] Order(s):XR UPPER GI SINGLE CONTRAST [3886100] Order #: [id number] FUTURE XR GI SMALL BOWEL FOLLOW-THRU [[id number]] Order #: [id number] FUTURE Prescriptions as of 06/16/2023 - potassium (POTASSIMIN ORAL) Take by mouth. - ferrous sulfate 325 mg (65 mg iron) tablet Take 325 mg by mouth daily with breakfast. - pantoprazole DR (PROTONIX) 4 (more content not included)... Normal [facility] CNPDominique 12-05-2022 CNPN Telephone ([id number]) HONEY MONTES ([id number]) 1960 F Date Time Provider Department 12/05/22 GENE QUIROZ During your visit today, we recorded the following information about you: Gene Quiroz RN 12/05/2022 9:43 AM Signed Spoke with patient who states that her coronary clinical specialist told her to reschedule this appointment. Patient has number to cancel/reschedule appointment. Allergies As of Date: 12/05/2022 (No Known Allergies) Date Reviewed: 04/28/2022 Reviewed by: Shakira Garvin MA - Fully Assessed Reason for Visit: Education Of Patient/family [904] Prescriptions as of 12/05/2022 - potassium (POTASSIMIN ORAL) Take by mouth. - ferrous sulfate 325 mg (65 mg iron) tablet Take 325 mg by mouth daily with breakfast. - pantoprazole DR (PROTONIX) 40 mg tablet Take 40 mg by mouth once daily. - iv contrast (will be provided with radiology test) CT ABD/PEL -Inject, intravenously, once for 1 dose.No IV access, insert saline lock prior to the beginning of sedation, infusion, injection of imaging exam. Discontinue saline lock post exam. If Pt. has a central line or IVAD, may access for administration according to line specific nursing protocol. Once exam is complete flush line and de-access according to line specific nursing protocol in the CT contrast administration guidelines link. - midodrine (PROAMITINE) 5 mg tablet Take 5 mg by mouth three times daily. - oxyCODONE-acetaminop hen (PERCOCET) 7.5-325 mg tablet Take 1 tablet by mouth every 12 hours as needed for pain. - DULCOLAX, BISACODYL, ORAL Take by mouth once daily. Patient takes 10 tablets daily in order to have a bowel movement. - ALPRAZolam (XANAX) 1 mg tablet Take 1 mg by mouth. - Blood-Glucose Meter (ONETOUCH ULTRA2 METER) monitoring kit USE UTD - lancets (ONE TOUCH DELICA) 33 gauge TEST FASTING QAM - morphine ER (ALLYSSA) 30 mg 24 hr capsule Take 30 mg by mouth twice daily. - oxyCODONE-acetaminop hen (PERCOCET) 5-325 mg tablet Take 1 tablet by mouth three times daily as needed. - naloxegol (MOVANTIK) 25 mg tablet Take 1 tablet by mouth once daily. - polyethylene glycol 3350 (MIRALAX, GLYCOLAX) 17 gram/dose powder Use as directed for Miralax / Gatorade Bowel Prep Kit - Bisacodyl (DULCOLAX) 5 mg tab Use as directed for Miralax / Gatorade Bowel Prep Kit - clopidogrel (PLAVIX) 75 mg tablet Take 75 mg by mouth once daily. - gabapentin (NEURONTIN) 600 mg tablet Take 600 mg by mouth three times daily. - metformin HCl (METFORMIN ORAL) Take 500 mg by mouth twice daily. - metoprolol tartrate, short acting, (LOPRESSOR) 25 mg tablet Take 25 mg by mouth twice daily. - atorvastatin (LIPITOR) 80 mg tablet Take 80 mg by mouth once daily. - zolpidem (AMBIEN) 10 mg Take 10 mg by mouth at bedtime as needed. - citalopram (CELEXA) 20 mg tablet Take 20 mg by mouth once daily. - tamoxifen (NOLVADEX) 20 mg tablet Take 20 mg by mouth once daily. Problem List As Of Date 12/05/2022 Noted Resolved Epigastric pain [R10.13] 04/20/2020 Personal history of malignant neoplasm of breas*04/20/2020 History of bariatric surgery [Z98.84] 04/20/2020 05/28/2020 Anxiety disorder, unspecified [F41.9] 04/20/2020 Atherosclerotic heart disease of [place] coronar*04/20/2020 Gastrointestinal hemorrhage, unspecified [K92.2]04/18/2020 09/13/2020 meterman (current) use of antithrombotics/anti *04/20/2020 Cigarette nicotine dependence without complicat*04/20/[address] of the abdomen [R93.5] 05/28/2020 Essential hypertension [I10] 08/28/2020 Other hyperlipidemia [E78.49] 08/28/2020 NSTEMI (non-ST elevated myocardial infarction) *08/28/2020 Type 2 diabetes mellitus without complication, *08/28/2020 Neuroendocrine carcinoma of small bowel (HCC) [*08/28/2020 Small bowel cancer (HCC) [C17.9] 08/31/2020 09/04/2020 Nicotine use disorder, F17.2 [F17.200] 09/04/2020 Abdominal pain [R10.9] 09/11/2020 Encounter Status:Closed by GENE QUIROZ on 12/05/22 Normal [facility] CBC with Auto Differentialon 06-15-2022 Absolute Eos # 0.16 [facility] [employer] [facility] Absolute Immature Granulocyte 0.05 [facility] [employer] Absolute Lymph # 1.75 [facility] [employer] Absolute Boyd # 0.71 [facility] Basophils (Bld) [#/Vol] 0.05 10*3/uL [facility] Basophils/100 WBC (Bld) 0 % 0 - 2 % [facility] Eosinophils/100 WBC (Bld) 1 % 1 - 4 % [facility] Hematocrit (Bld) [Volume fraction] 39.0 % 36.3 - 47.1 % [facility] Hemoglobin (Bld) [Mass/Vol] 12.7 g/dL 11.9 - 15.1 g/dL [facility] Immature granulocytes/100 WBC (Bld) 0 % 0 [facility] Interpretation and review of laboratory results Abnormal [facility] Lymphocytes/100 WBC (Bld) 13 % Low 24 - 43 % [facility] MCH (RBC) [Entitic mass] 28.7 pg 25. 2 - 33.5 pg [facility] MCHC (RBC) [Mass/Vol] 32.6 g/dL 28.4 - 34.8 g/dL [facility] MCV (RBC) [Entitic vol] 88.0 fL 82.6 - 102.9 fL [facility] Monocytes/100 WBC (Bld) 6 % 3 - 12 % [facility] NRBC Automated 0.0 0.0 per 100 WBC [facility] Platelet distribution width (Bld) [Ratio] 16.3 % High 11.8 - 14.4 % [facility] Platelet mean volume (Bld) [Entitic vol] 10.0 fL 8.1 - 13.5 fL [facility] Platelets (Bld) [#/Vol] 276 10*3/uL [facility] RBC (Bld) [#/Vol] 4.43 10*6/uL 3.95 - 5.11 m/uL [facility] RBC (Bld) [#/Vol] ANISOCYTOSIS PRESENT [facility] Segmented neutrophils/100 WBC (Bld) 79 % High 36 - 65 % [facility] Segs Absolute 10.30 High [facility] WBC (Bld) [#/Vol] 13.0 10*3/uL High [facility] CBC with Diffon 06-15-2022 Abs. Basophil 0.05 k/uL Normal 0.00-0.20 [facility] Comment on above: Performed By: #### C DP #### [address] [address] Nitroglycerin Distributor: Peter Baer MD Abs.Imm.Granulocyte 0.05 k/uL Normal 0.00-0.30 [facility] Comment on above: Performed By: #### C DP #### [place] [address] Nitroglycerin Distributor: Peter Baer MD Abs.Neutrophil (Seg) 10.30 k/uL High 1.50-8.10 [facility] Comment on above: Performed By: #### C DP #### [place] [address] Nitroglycerin Distributor: Peter Baer MD Basophils/100 WBC (Bld) 0 % Normal 0-2 [facility] Comment on above: Performed By: #### C DP #### [place] [address] Nitroglycerin Distributor: Peter Baer MD Eosinophils (Bld) [#/Vol] 0.16 10*3/uL Normal 0.00-0.4 4 [facility] Comment on above: Performed By: #### C DP #### [place] [address] Nitroglycerin Distributor: Peter Baer MD Eosinophils/100 WBC (Bld) 1 % Normal 1-4 [facility] Comment on above: Performed By: #### C DP #### [place] [address] Nitroglycerin Distributor: Peter Baer MD Erythrocyte distribution width (RBC) [Ratio] 16.3 % High 11.8-14.4 [facility] Comment on above: Performed By: #### C DP #### [address] [address] Nitroglycerin Distributor: Peter Baer MD Hematocrit (Bld) [Volume fraction] 39.0 % Normal 36.3-47.1 [facility] Comment on above: Performed By: #### C DP #### [address] [address] Nitroglycerin Distributor: Peter Baer MD Hemoglobin (Bld) [Mass/Vol] 12.7 g/dL Normal 11.9-15.1 [facility] Comment on above: Performed By: #### C DP #### [address] [address] Nitroglycerin Distributor: Peter Baer MD Immature granulocytes/100 WBC (Bld) 0 % Normal 0 [facility] Comment on above: Performed By: #### C DP #### [address] [address] Nitroglycerin Distributor: Peter Baer MD Lymphocytes (Bld) [#/Vol] 1.75 10*3/uL Normal 1.10-3.7 0 [facility] Comment on above: Performed By: #### C DP #### [address] [address] Nitroglycerin Distributor: Peter Baer MD Lymphocytes/100 WBC (Bld) 13 % Low 24-43 [facility] Comment on above: Performed By: #### C DP #### [address] [address] Nitroglycerin Distributor: Peter Baer MD MCH (RBC) [Entitic mass] 28.7 pg Normal 25.2-33.5 [facility] Comment on above: Performed By: #### C DP #### [address] [address] Nitroglycerin Distributor: Peter Baer MD MCHC (RBC) [Mass/Vol] 32.6 g/dL Normal 28.4-34.8 [facility] Comment on above: Performed By: #### C DP #### [place] [address] Nitroglycerin Distributor: Peter Baer MD MCV (RBC) [Entitic vol] 88.0 fL Normal 82.6-102.9 [facility] Comment on above: Performed By: #### C DP #### [place] [address] Nitroglycerin Distributor: Peter Baer MD Monocytes (Bld) [#/Vol] 0.71 10*3/uL Normal 0.10-1.20 [facility] Comment on above: Performed By: #### C DP #### [place] [address] Nitroglycerin Distributor: Peter Baer MD Monocytes/100 WBC (Bld) 6 % Normal 3-12 [facility] Comment on above: Performed By: #### C DP #### [place] [address] Nitroglycerin Distributor: Peter Baer MD Neutrophil (Seg) 79 % High 36-65 [facility] Comment on above: Performed By: #### C DP #### [place] [address] Nitroglycerin Distributor: Peter Baer MD NRBC Automated 0.0 per 100 WBC Normal 0.0 [facility] Comment on above: Performed By: #### C DP #### [place] [address] Nitroglycerin Distributor: Peter Baer MD Platelet mean volume (Bld) [Entitic vol] 10.0 fL Normal 8.1-13.5 [facility] Comment on above: Performed By: #### C DP #### [id number] [place] [address] Nitroglycerin Distributor: Peter Baer MD Platelets (Bld) [#/Vol] 276 10*3/uL Normal 138-453 [facility] Comment on above: Performed By: #### C DP #### [address] [address] Nitroglycerin Distributor: Peter Baer MD RBC (Bld) [#/Vol] 4.43 10*6/uL Normal 3.95-5.11 [facility] Comment on above: Performed By: #### C DP #### [address] [address] Nitroglycerin Distributor: Peter Baer MD RBC morphology finding Nom (Bld) ANISOCYTOSIS PRESENT Normal [facility] Comment on above: Performed By: #### C DP #### [address] [address] Nitroglycerin Distributor: Peter Baer MD WBC (Bld) [#/Vol] 13.0 10*3/uL High 3.5-11.3 [facility] Comment on above: Performed By: #### C DP #### [address] [address] Nitroglycerin Distributor: Peter Baer MD POC Glucose Fingerstickon Glucose [Mass/Vol] 135 mg/dL High 65 - 105 mg/dL [facility] Interpretation and review of laboratory results Abnormal [facility] Basic Metab w/rfx MGon 06-14 (cont.) Normal [facility] Comment on above: Result Comment: Aver age GFR for 60-69 years old: 85 mL/min/1.73sq m Chronic Kidney Disease: <60 mL/min/1.73sq m Kidney failure: <15 mL/min/1.73sq m eGFR calculated using average adult body mass. Additional eGFR calculator available at: http://www.[employer].com/multiple_crcl_2012.htm Performed By: #### F MARCIALGUS ChaudhryBC, BMPX #### [address] [address] Nitroglycerin Distributor: Peter Baer MD Performed By: #### B MPX, FEBC, FERI #### [address] [address] Nitroglycerin Distributor: Peter Baer MD Anion gap [Moles/Vol] 11 mmol/L Normal 9-17 [facility] Comment on above: Performed By: #### F MARCIAL, FEBC, BMPX #### [address] [address] Nitroglycerin Distributor: Peter Baer MD Performed By: #### B MPX FEBC, FERI #### [address] [address] Nitroglycerin Distributor: Peter Baer MD Calcium [Mass/Vol] 8.4 mg/dL Low 8.6-10.4 [facility] Comment on above: Performed By: #### F MARCIAL FEBC, BMPX #### [address] [address] Nitroglycerin Distributor: Peter Baer MD Performed By: #### B MPX, FEBC, FERI #### [facility] [employer] [address] [place] [address] Nitroglycerin Distributor: Peter Baer MD Chloride [Moles/Vol] 108 mmol/L High 98-107 [facility] Comment on above: Performed By: #### F MARCIAL, FEBC, BMPX #### [facility] [employer] [address] [place] [address] Nitroglycerin Distributor: Peter Baer MD Performed By: #### B MPX, FEBC, FERI #### [facility] [employer] [address] [place] [address] Nitroglycerin Distributor: Peter Baer MD CO2 [Moles/Vol] 22 mmol/L Normal 20-31 [facility] Comment on above: Performed By: #### F MARCIAL, FEBC, BMPX #### [facility] [employer] [address] [place] [address] Nitroglycerin Distributor: Peter Baer MD Performed By: #### B MPX, FEBC, FERI #### [facility] [employer] [address] [place] [address] Nitroglycerin Distributor: Peter Baer MD Creatinine [Mass/Vol] 0.41 mg/dL Low 0.50-0.90 [facility] Comment on above: Performed By: #### F MARCIAL, FEBC, BMPX #### [facility] [employer] [address] [place] [address] Nitroglycerin Distributor: Petre Baer MD Performed By: #### B MPX, FEBC, FERI #### [facility] [employer] [address] [place] [address] Nitroglycerin Distributor: Peter Baer MD GFR, Amer >60 Normal >60 [facility] Comment on above: Performed By: #### F MARCIAL, FEBC, BMPX #### [facility] [employer] [address] [place] [address] Nitroglycerin Distributor: Peter Baer MD Performed By: #### B MPX, FEBC, FERI #### [facility] [employer] [address] [place] [address] Nitroglycerin Distributor: Peter Baer MD GFR,non Amer >60 Normal >60 [facility] Comment on above: Performed By: #### F MARCIAL, FEBC, BMPX #### [facility] [employer] [address] [place] [address] Nitroglycerin Distributor: Peter Baer MD Performed By: #### B MPX, FEBC, FERI #### [address] [address] Nitroglycerin Distributor: Peter Baer MD Glucose [Mass/Vol] 97 mg/dL Normal 70-99 [facility] Comment on above: Performed By: #### F MARCIAL, FEBC, BMPX #### [address] [address] Nitroglycerin Distributor: Peter Baer MD Performed By: #### B MPX, FEBC, FERI #### [address] [address] Nitroglycerin Distributor: Peter Baer MD Potassium [Moles/Vol] 4.0 mmol/L Normal 3.7-5.3 [facility] Comment on above: Performed By: #### F MARCIAL, FEBC, BMPX #### [address] [address] Nitroglycerin Distributor: Peter Baer MD Performed By: #### B MPX, FEBC, FERI #### [address] [address] Nitroglycerin Distributor: Peter Baer MD Sodium [Moles/Vol] 141 mmol/L Normal 135-144 [facility] Comment on above: Performed By: #### F MARCIAL, FEBC, BMPX #### [facility] [employer] [address] [place] [address] Nitroglycerin Distributor: Peter Baer MD Performed By: #### B MPX, FEBC, FERI #### [facility] [employer] [address] [place] [address] Nitroglycerin Distributor: Peter Baer MD Urea nitrogen [Mass/Vol] 9 mg/dL Normal 8-23 [facility] Comment on above: Performed By: #### F MARCIAL, FEBC, BMPX #### [address] [address] [place], [place] [id number] Nitroglycerin Distributor: Peter Baer MD Performed By: #### B MPX, KELLEN, HENRY #### [facility] [employer] [address] [place], [place] [id number] Nitroglycerin Distributor: Peter Baer MD Basic Metabolic Panel w/ Ref tiffanie to MGon 06-14-2022 Anion gap [Moles/Vol] 11 mmol/L 9 - 17 mmol/L [facility] [place] [employer] Calcium [Mass/Vol] 8.4 mg/dL Low 8.6 - 10. 4 mg/dL [facility] [place] [employer] Chloride [Moles/Vol] 108 mmol/L High 98 - 10 7 mmol/L [facility] [employer] CO2 [Moles/Vol] 22 mmol/L 20 - 31 mmol/L [facility] Creatinine [Mass/Vol] 0.41 mg/dL Low 0.5 - 0.9 mg/dL [facility] GFR >60 60 - PI NF mL/min [facility] GFR Non- >60 60 - PINF mL/min [facility] GFR/1.73 sq M.predicted MDRD (S/P/Bld) [Vol rate/Area] [facility] Comment on above: Average GFR for 60-6 9 years old: 85 mL/min/1.73sq m Chronic Kidney Disease: <60 mL/min/1.73sq m Kidney failure: <15 mL/min/1.73sq m eGFR calculated using average adult body mass. Additional eGFR calculator available at: http://www.[employer]/multiple_crcl_2012.htm Glucose [Mass/Vol] 97 mg/dL 70 - 99 mg/dL [facility] Interpretation and review of laboratory results Abnormal [place] [employer] Potassium [Moles/Vol] 4.0 mmol/L 3.7 - 5.3 mmol/L [facility] [employer] Sodium [Moles/Vol] 141 mmol/L 135 - 144 mmol/L [facility] Urea nitrogen (BldV) [Mass/Vol] 9 mg/dL 8 - 23 mg/dL [facility] CBC with Auto Differentialon 06-14-2022 Absolute Eos # 0.20 [facility] Absolute Immature Granulocyte [facility] Absolute Lymph # 3.10 [facility] Absolute Boyd # 0.49 [facility] Basophils (Bld) [#/Vol] 0.06 10*3/uL [facility] Basophils/100 WBC (Bld) 1 % 0 - 2 % [facility] Eosinophils/100 WBC (Bld) 2 % 1 - 4 % [facility] Hematocrit (Bld) [Volume fraction] 34.5 % Low 36.3 - 47.1 % [facility] Hemoglobin (Bld) [Mass/Vol] 11.2 g/dL Low 11.9 - 15.1 g/dL [facility] Immature granulocytes/100 WBC (Bld) 0 % 0 [facility] Interpretation and review of laboratory results Abnormal [facility] Lymphocytes/100 WBC (Bld) 35 % 24 - 43 % [facility] MCH (RBC) [Entitic mass] 29.5 pg 25. 2 - 33.5 pg [facility] MCHC (RBC) [Mass/Vol] 32.5 g/dL 28.4 - 34.8 g/dL [facility] MCV (RBC) [Entitic vol] 90.8 fL 82.6 - 102.9 fL [facility] Monocytes/100 WBC (Bld) 6 % 3 - 12 % [facility] NRBC Automated 0.0 0.0 per 100 WBC [facility] Platelet distribution width (Bld) [Ratio] 16.6 % High 11.8 - 14.4 % [facility] Platelet mean volume (Bld) [Entitic vol] 10.0 fL 8.1 - 13.5 fL [facility] Platelets (Bld) [#/Vol] 257 10*3/uL [facility] RBC (Bld) [#/Vol] 3.80 10*6/uL Low 3.95 - 5.11 m/uL [facility] RBC (Bld) [#/Vol] ANISOCYTOSIS PRESENT [facility] Segmented neutrophils/100 WBC (Bld) 56 % 36 - 65 % [facility] Segs Absolute 4.98 [facility] WBC (Bld[facility] [#/Vol] 8.8 10*3/uL [facility] HEALTH [facility] Absolute Eos # 0.18 [facility] Absolute Immature Granulocyte 0.03 [facility] Absolute Lymph # 2.83 [facility] Absolute Boyd # 0.65 [facility] Basophils (Bld) [#/Vol] 0.05 10*3/uL [facility] Basophils/100 WBC (Bld) 1 % 0 - 2 % [facility] Eosinophils/100 WBC (Bld) 2 % 1 - 4 % [facility] Hematocrit (Bld) [Volume fraction] 36.1 % Low 36.3 - 47.1 % [facility] Hemoglobin (Bld) [Mass/Vol] 11.3 g/dL Low 11.9 - 15.1 g/dL [facility] Immature granulocytes/100 WBC (Bld) 0 % 0 [facility] Interpretation and review of laboratory results Abnormal [place] [facility] Lymphocytes/100 WBC (Bld) 30 % 24 - 43 % [facility] MCH (RBC) [Entitic mass] 28.6 pg 25. 2 - 33.5 pg [facility] MCHC (RBC) [Mass/Vol] 31.3 g/dL 28.4 - 34.8 g/dL [facility] MCV (RBC) [Entitic vol] 91.4 fL 82.6 - 102.9 fL [facility] Monocytes/100 WBC (Bld) 7 % 3 - 12 % [facility] NRBC Automated 0.0 0.0 per 100 WBC [facility] Platelet distribution width (Bld) [Ratio] 16.9 % High 11.8 - 14.4 % [facility] Platelet mean volume (Bld) [Entitic vol] 10.3 fL 8.1 - 13.5 fL [facility] Platelets (Bld) [#/Vol] 281 10*3/uL [facility] RBC (Bld) [#/Vol] 3.95 10*6/uL 3.95 - 5.11 m/uL [facility] RBC (Bld) [#/Vol] ANISOCYTOSIS PRESENT [facility] Segmented neutrophils/100 WBC (Bld) 60 % 36 - 65 % [facility] Segs Absolute 5.68 [facility] WBC (Bld) [#/Vol] 9.4 10*3/uL [facility] CBC with Diffon 06-14-2022 Abs. Basophil 0.06 k/uL Normal 0.00-0.20 [facility] Comment on above: Performed By: #### C DP #### [place] [address] Nitroglycerin Distributor: Peter Baer MD Abs.Imm.Granulocyte <0.03 Normal 0.00-0.30 [facility] Comment on above: Performed By: #### C DP #### [place] [address] Nitroglycerin Distributor: Peter Baer MD Abs.Neutrophil (Seg) 4.98 k/uL Normal 1.50-8.10 [facility] Comment on above: Performed By: #### C DP #### [address] [address] Nitroglycerin Distributor: Peter Baer MD Basophils/100 WBC (Bld) 1 % Normal 0-2 M [facility] Comment on above: Performed By: #### C DP #### [address] [address] Nitroglycerin Distributor: Peter Baer MD Eosinophils (Bld) [#/Vol] 0.20 10*3/uL Normal 0.00-0.4 4 [facility] Comment on above: Performed By: #### C DP #### [address] [address] Nitroglycerin Distributor: Peter Baer MD Eosinophils/100 WBC (Bld) 2 % Normal 1-4 [facility] Comment on above: Performed By: #### C DP #### [address] [address] Nitroglycerin Distributor: Peter Baer MD Erythrocyte distribution width (RBC) [Ratio] 16.6 % High 11.8-14.4 [facility] Comment on above: Performed By: #### C DP #### [address] [address] Nitroglycerin Distributor: Peter Baer MD Hematocrit (Bld) [Volume fraction] 34.5 % Low 36.3-47.1 [facility] Comment on above: Performed By: #### C DP #### [address] [address] Nitroglycerin Distributor: Peter Baer MD Hemoglobin (Bld) [Mass/Vol] 11.2 g/dL Low 11.9-15.1 [facility] Comment on above: Performed By: #### C DP #### [address] [address] Nitroglycerin Distributor: Peter Baer MD Immature granulocytes/100 WBC (Bld) 0 % Normal 0 [facility] Comment on above: Performed By: #### C DP #### [place] [address] Nitroglycerin Distributor: Peter Baer MD Lymphocytes (Bld) [#/Vol] 3.10 10*3/uL Normal 1.10-3.7 0 [facility] Comment on above: Performed By: #### C DP #### [address] [address] Nitroglycerin Distributor: Peter Baer MD Lymphocytes/100 WBC (Bld) 35 % Normal 24-43 [facility] Comment on above: Performed By: #### C DP #### [address] [address] Nitroglycerin Distributor: Peter Baer MD MCH (RBC) [Entitic mass] 29.5 pg Normal 25.2-33.5 [facility] Comment on above: Performed By: #### C DP #### [address] [address] Nitroglycerin Distributor: Peter Baer MD MCHC (RBC) [Mass/Vol] 32.5 g/dL Normal 28.4-34.8 [facility] Comment on above: Performed By: #### C DP #### [place] [address] Nitroglycerin Distributor: Peter Baer MD MCV (RBC) [Entitic vol] 90.8 fL Normal 82.6-102.9 [facility] Comment on above: Performed By: #### C DP #### [place] [address] Nitroglycerin Distributor: Peter Baer MD Monocytes (Bld) [#/Vol] 0.49 10*3/uL Normal 0.10-1.20 [facility] Comment on above: Performed By: #### C DP #### [place] [address] Nitroglycerin Distributor: Peter Baer MD Monocytes/100 WBC (Bld) 6 % Normal 3-12 M [facility] Comment on above: Performed By: #### C DP #### [address] [address] Nitroglycerin Distributor: Peter Baer MD Neutrophil (Seg) 56 % Normal 36-65 [facility] Comment on above: Performed By: #### C DP #### [address] [address] Nitroglycerin Distributor: Peter Baer MD NRBC Automated 0.0 per 100 WBC Normal 0.0 [facility] Comment on above: Performed By: #### C DP #### [place] [address] Nitroglycerin Distributor: Peter Baer MD Platelet mean volume (Bld) [Entitic vol] 10.0 fL Normal 8.1-13.5 [facility] Comment on above: Performed By: #### C DP #### [place] [address] Nitroglycerin Distributor: Peter Baer MD Platelets (Bld) [#/Vol] 257 10*3/uL Normal 138-453 [facility] Comment on above: Performed By: #### C DP #### [place] [address] Nitroglycerin Distributor: Peter Baer MD RBC (Bld) [#/Vol] 3.80 10*6/uL Low 3.95-5.11 [facility] Comment on above: Performed By: #### C DP #### [place] [address] Nitroglycerin Distributor: Peter Baer MD RBC morphology finding Nom (Bld) ANISOCYTOSIS PRESENT Normal [facility] Comment on above: Performed By: #### C DP #### [place] [address] Nitroglycerin Distributor: Peter Baer MD WBC (Bld) [#/Vol] 8.8 10*3/uL Normal 3.5-11.3 [facility] Comment on above: Performed By: #### C DP #### [address] [address] Nitroglycerin Distributor: Peter Baer MD Abs. Basophil 0.05 k/uL Normal 0.00-0.20 [facility] Comment on above: Performed By: #### C DP #### [address] [address] Nitroglycerin Distributor: Peter Baer MD Performed By: #### C OVRB #### [address] [address] Nitroglycerin Distributor: Peter Baer MD Abs.Imm.Granulocyte 0.03 k/uL Normal 0.00-0.30 [facility] Comment on above: Performed By: #### C DP #### [place] [address] Nitroglycerin Distributor: Peter Baer MD Performed By: #### C OVRB #### [place] [address] Nitroglycerin Distributor: Peter Baer MD Abs.Neutrophil (Seg) 5.68 k/uL Normal 1.50-8.10 [facility] Comment on above: Performed By: #### C DP #### [place] [address] Nitroglycerin Distributor: Peter Baer MD Performed By: #### C OVRB #### [place] [address] Nitroglycerin Distributor: Peter Baer MD Basophils/100 WBC (Bld) 1 % Normal 0-2 M [facility] Comment on above: Performed By: #### C DP #### [place] [address] Nitroglycerin Distributor: Peter Baer MD Performed By: #### C OVRB #### [place] [address] Nitroglycerin Distributor: Peter Baer MD Eosinophils (Bld) [#/Vol] 0.18 10*3/uL Normal 0.00-0.4 4 [facility] Comment on above: Performed By: #### C DP #### [address] [address] Nitroglycerin Distributor: Peter Baer MD Performed By: #### C OVRB #### [address] [address] Nitroglycerin Distributor: Peter Baer MD Eosinophils/100 WBC (Bld) 2 % Normal 1-4 [facility] Comment on above: Performed By: #### C DP #### [address] [address] Nitroglycerin Distributor: Peter Baer MD Performed By: #### C OVRB #### [address] [address] Nitroglycerin Distributor: Peter Baer MD Immature granulocytes/100 WBC (Bld) 0 % Normal 0 [facility] Comment on above: Performed By: #### C DP #### [address] [address] Nitroglycerin Distributor: Peter Baer MD Performed By: #### C OVRB #### [address] [address] Nitroglycerin Distributor: Peter Baer MD Lymphocytes (Bld) [#/Vol] 2.83 10*3/uL Normal 1.10-3.7 0 [facility] Comment on above: Performed By: #### C DP #### [address] [address] Nitroglycerin Distributor: Peter Baer MD Performed By: #### C OVRB #### [address] [address] Nitroglycerin Distributor: Peter Baer MD Lymphocytes/100 WBC (Bld) 30 % Normal 24-43 [facility] Comment on above: Performed By: #### C DP #### [address] [address] Nitroglycerin Distributor: Peter Baer MD Performed By: #### C OVRB #### [address] [address] Nitroglycerin Distributor: Peter Baer MD Monocytes (Bld) [#/Vol] 0.65 10*3/uL Normal 0.10-1.20 [facility] Comment on above: Performed By: #### C DP #### [address] [address] Nitroglycerin Distributor: Peter Baer MD Performed By: #### C OVRB #### [address] [address] Nitroglycerin Distributor: Peter Baer MD Monocytes/100 WBC (Bld) 7 % Normal 3-12 M [facility] Comment on above: Performed By: #### C DP #### [address] [address] Nitroglycerin Distributor: Peter Baer MD Performed By: #### C OVRB #### [address] [address] Nitroglycerin Distributor: Peter Baer MD Neutrophil (Seg) 60 % Normal 36-65 [facility] Comment on above: Performed By: #### C DP #### [address] [address] Nitroglycerin Distributor: Peter Baer MD Performed By: #### C OVRB #### [address] [address] Nitroglycerin Distributor: Peter Baer MD Erythrocyte distribution width (RBC) [Ratio] 16.9 % High 11.8-14.4 [facility] Comment on above: Performed By: #### C DP #### [address] [address] Nitroglycerin Distributor: Peter Baer MD Performed By: #### C OVRB #### [address] [address] Nitroglycerin Distributor: Peter Baer MD Hematocrit (Bld) [Volume fraction] 36.1 % Low 36.3-47.1 [facility] Comment on above: Performed By: #### C DP #### [address] [address] Nitroglycerin Distributor: Peter Baer MD Performed By: #### C OVRB #### [address] [address] Nitroglycerin Distributor: Peter Baer MD Hemoglobin (Bld) [Mass/Vol] 11.3 g/dL Low 11.9-15.1 [facility] Comment on above: Performed By: #### C DP #### [address] [address] Nitroglycerin Distributor: Peter Baer MD Performed By: #### C OVRB #### [address] [address] Nitroglycerin Distributor: Peter Baer MD MCH (RBC) [Entitic mass] 28.6 pg Normal 25.2-33.5 [facility] Comment on above: Performed By: #### C DP #### [address] [address] Nitroglycerin Distributor: Peter Baer MD Performed By: #### C OVRB #### [address] [address] Nitroglycerin Distributor: Peter Baer MD MCHC (RBC) [Mass/Vol] 31.3 g/dL Normal 28.4-34.8 [facility] Comment on above: Performed By: #### C DP #### [address] [address] Nitroglycerin Distributor: Peter Baer MD Performed By: #### C OVRB #### [address] [address] Nitroglycerin Distributor: Peter Baer MD MCV (RBC) [Entitic vol] 91.4 fL Normal 82.6-102.9 M [facility] Comment on above: Performed By: #### C DP #### [address] [address] Nitroglycerin Distributor: Peter Baer MD Performed By: #### C OVRB #### [address] [address] Nitroglycerin Distributor: Peter Baer MD NRBC Automated 0.0 per 100 WBC Normal 0.0 [facility] Comment on above: Performed By: #### C DP #### [address] [address] Nitroglycerin Distributor: Peter Baer MD Performed By: #### C OVRB #### [address] [address] Nitroglycerin Distributor: Peter Baer MD Platelet mean volume (Bld) [Entitic vol] 10.3 fL Normal 8.1-13.5 [facility] Comment on above: Performed By: #### C DP #### [address] [address] Nitroglycerin Distributor: Peter Baer MD Performed By: #### C OVRB #### [address] [address] N[employer] Distributor: Peter Baer MD Platelets (Bld) [#/Vol] 281 10*3/uL Normal 138-453 [facility] Comment on above: Performed By: #### C DP #### [address] [address] Nitroglycerin Distributor: Peter Baer MD Performed By: #### C OVRB #### [address] [address] Nitroglycer[employer] Distributor: Peter Baer MD RBC (Bld) [#/Vol] 3.95 10*6/uL Normal 3.95-5.11 [facility] Comment on above: Performed By: #### C DP #### [address] [address] Nitroglycerin Distributor: Peter Baer MD Performed By: #### C OVRB #### [address] [address] Nitroglycer[employer] Distributor: Peter Baer MD RBC morphology finding Nom (Bld) ANISOCYTOSIS PRESENT Normal [facility] Comment on above: Performed By: #### C DP #### [address] [address] Nitroglycer[employer] Distributor: Peter Baer MD Performed By: #### C OVRB #### [address] [address] Nitroglycerin Distributor: Peter Baer MD WBC (Bld) [#/Vol] 9.4 10*3/uL Normal 3.5-11.3 [facility] Comment on above: Performed By: #### C DP #### [address] [address] Nitroglycerin Distributor: Peter Baer MD Performed By: #### C OVRB #### [address] [address] Nitroglycer[employer] Distributor: Peter Baer MD Catheterization and angiogra phy procedure details panelon 06-14-2022 Cardiac Diagnostic + PCI Report Demographics Patient JYOTI MÉNDEZ Date of Study 06/14/2022 Name Date of 1960 Gender Female Age 62 year(s) Race Room [id number]^ARMAS^SKIP Height: 65 inch, 165.1 cm Number Corporate [id number] Weight: 109 pounds, 49.4 kg ID # Patient [id number] BSA: 1.53 m^2 BMI: 18.14 kg/m^2 Acct # MR # [id number] Performing Physician Richard Lopez Referring Physician # Assisting Physician Additional Comments Patient medications reviewed by Physician prior to procedure. ASA & Mallampati documented in Epic by Physician. H&P reviewed and patient examined by performing physician prior to the procedure on 06/12/22 at No changes noted. If changes, see note below.: Procedure Procedure Type: Diagnostic procedure: Lt Heart, Coronary Angio, LVgram, Ultrasound used for access - Femoral PCI procedure: PTCA:, RCA and / or branches Complications: - No complication Indications: - Angina - Uncontrolled by meds Conclusions Procedure Summary Patent LAD, D1 and LCX/OM1 stent. Focal Instent restenosis of mid RCA Normal LV systolic function; LVEF 55%. Successful POBA of mid RCA instent restenosis with excellent results. Recommendations Medical therapy as needed. Risk factor modification. Add norvasc 5m gpo qhs. Counseled to quit smoking. Signature ---- ---- Angiographic Findings Cardiac Arteries and Lesion Findings LMCA: has distal 20% stenosis. LAD: has patent mid previously placed stent. The distal LAD has diffuse narrowing. The D1 has patent previously placed stent in the proximal segment. LCx: has patent previously placed stent in the proximal segment extending into OM1. RCA: has patent previously placed stent in the mid segment with focal 70% instent restenosis. Lesion on Mid RCA: Mid subsection.70% stenosis 10 mm length reduced to 0%. Pre procedure DIEGO III flow was noted. Post Procedure DIEGO III flow was present. Good runoff was present. The lesion was diagnosed as Moderate Risk (B). The lesion was discrete and eccentric.The lesion showed mild angulation and mild tortuosity.Lesion plaque is ruptured. Comments:instent restenosis. Devices used - Vigilos Flex 180 cm. Number of passes: 1. - NC Euphora Balloon 3.0mm x 12mm. 3 inflation(s) to a max pressure of: 15 gilma. Coronary Tree Dominance: Right LV Analysis LV function assessed as:Normal. Ejection Fraction + +---+ !Method !EF%! + +---+ !LV gram !55 ! + +---+ LV Segment Contractility 1 - Normal 3 - Mild 5 - Severe 7 - Dyskinesis hypokinesis hypokinesis 2 - 4 - Moderate 6 - Akinesis 8 - Aneurysm Hypokinesis hypokinesis Procedure Data Procedure Start Time: 06/14/2022 17:33. Procedure End Time: 06/14/2022 17:47. The procedure was explained in detail to the patient. Risks, complications and alternative treatments were reviewed. Written consent was obtained. Diagnostic Cath Status: Urgent Interventional Cath Status: Urgent Entry Locations - Retrograde Percutaneous access was performed through the Right Femoral artery. A 4 Fr sheath was inserted. This was exchanged for a 6 Fr sheath. Procedure Medications: - Versed I.V. 2 mg. - Lidocaine HCl 1% 10mg/ml S.Q. 15 ml. - Angiomax I.V. bolus 7.5 ml. - Angiomax I.V. drip 17.4 ml/hr. - Plavix P.O. 300 mg. - Angiomax I.V. drip 17.4 ml/hr. Catheters and Wires: - 6F Catheter JL 4 was used for Left coronary angiography. - 6F Catheter JR 4 was used for Left ventriculography. - 6F Guide Catheter FR 4 was used for Right coronary angiography. Contrast Material: - Isovue 72020 ml Fluoroscopy Time: Diagnostic: 2:06 minutes. Total: 2:06 minutes. Medical History Allergies - *No Known Allergies. Risk Factors The patient risk factors include:last creatinine: 0.4 mg/dl and creatinine clearance: 115.28 ml/min. Admission Data Admission Date: 06/12/2022 Admission Status: Inpatient -The patient's anginal syndrome was assessed as CCS III according to the Kosovan clin (more content not included)... PN STV CPA Richard Lopez MD - 06/14/2022 Cardiac Diagnostic + PCI Report Demographics Patient JYOTI MÉNDEZ Date of Study 06/14/2022 Name Date of 1960 Gender Female Age 62 year(s) Race Room [id number]^PRABHA Height: 65 inch, 165.1 cm Number Corporate [id number] Weight: 109 pounds, 49.4 kg ID # Patient [id number] BSA: 1.53 m^2 BMI: 18.14 kg/m^2 Acct # MR # [id number] Performing Physician Richard Lopez Referring Physician # Assisting Physician Additional Comments Patient medications reviewed by Physician prior to procedure. ASA & Mallampati documented in Epic by Physician. H&P reviewed and patient examined by performing physician prior to the procedure on 06/12/22 at No changes noted. If changes, see note below.: Procedure Procedure Type: Diagnostic procedure: Lt Heart, Coronary Angio, LVgram, Ultrasound used for access - Femoral PCI procedure: PTCA:, RCA and / or branches Complications: - No complication Indications: - Angina - Uncontrolled by meds Conclusions Procedure Summary Patent LAD, D1 and LCX/OM1 stent. Focal Instent restenosis of mid RCA Normal LV systolic function; LVEF 55%. Successful POBA of mid RCA instent restenosis with excellent results. Recommendations Medical therapy as needed. Risk factor modification. Add norvas 5m gpo qhs. Counseled to quit smoking. Signature ---- ---- Angiographic Findings Cardiac Arteries and Lesion Findings LMCA: has distal 20% stenosis. LAD: has patent mid previously placed stent. The distal LAD has diffuse narrowing. The D1 has patent previously placed stent in the proximal segment. LCx: has patent previously placed stent in the proximal segment extending into OM1. RCA: has patent previously placed stent in the mid segment with focal 70% instent restenosis. Lesion on Mid RCA: Mid subsection.70% stenosis 10 mm length reduced to 0%. Pre procedure DIEGO III flow was noted. Post Procedure DIEGO III flow was present. Good runoff was present. The lesion was diagnosed as Moderate Risk (B). The lesion was discrete and eccentric.The lesion showed mild angulation and mild tortuosity.Lesion plaque is ruptured. Comments:instent restenosis. Devices used - Vigilos Flex 180 cm. Number of passes: 1. - DE Euphora Balloon 3.0mm x 12mm. 3 inflation(s) to a max pressure of: 15 gilma. Coronary Tree Dominance: Right LV Analysis LV function assessed as:Normal. Ejection Fraction + +--- + !Method !EF%! + +--- + !LV gram !55 ! + +--- + LV Segment Contractility 1 - Normal 3 - Mild 5 - Severe 7 - Dyskinesis hypokinesis hypokinesis 2 - 4 - Moderate 6 - Akinesis 8 - Aneurysm Hypokinesis hypokinesis Procedure Data Procedure Start Time: 06/14/2022 17:33. Procedure End Time: 06/14/2022 17:47. The procedure was explained in detail to the patient. Risks, complications and alternative treatments were reviewed. Written consent was obtained. Diagnostic Cath Status: Urgent Interventional Cath Status: Urgent Entry Locations - Retrograde Percutaneous access was performed through the Right Femoral artery. A 4 Fr sheath was inserted. This was exchanged for a 6 Fr sheath. Procedure Medications: - Versed I.V. 2 mg. - Lidocaine HCl 1% 10mg/ml S.Q. 15 ml. - Angiomax I.V. bolus 7.5 ml. - Angiomax I.V. drip 17.4 ml/hr. - Plavix P.O. 300 mg. - Angiomax I.V. drip 17.4 ml/hr. Catheters and Wires: - 6F Catheter JL 4 was used for Left coronary angiography. - 6F Catheter JR 4 was used for Left ventriculography. - 6F Guide Catheter FR 4 was used for Right coronary angiography. Contrast Material: - Isovue 24825 ml Fluoroscopy Time: Diagnostic: 2:06 minutes. Total: 2:06 minutes. Medical History Allergies - *No Known Allergies. Risk Factors The patient risk factors include:last creatinine: 0.4 mg/dl and creatinine clearance: 115.28 ml/min. Admission Data Admission Date: 06/12/2022 Admission Status: Inpatient -The patient's anginal syndrome was assessed as CCS III according to the Kosovan clinical classification. Hemodynamics Condition: Baseline Room Air Estimated: 125.04Heart Rate: 36 bpm Pressure +-----+ + !Site !Pressure ! +-----+ (more content not included)... [employer] Phone: [employer] Phone: Catheterization and angiogra phy procedure details panelOrdered By: Richard Lopez on 06-14-2022 [employer] Phone: Ferritinon 06-14-2022 Ferritin [Mass/Vol] 22 ng/mL Normal 13-150 [facility] Comment on above: Performed By: #### KELLEN ROSALES, BMPX #### [facility] [address] [place] [address] Nitroglycerin Distributor: Peter Baer MD Performed By: ###Daija Fernández DP #### [facility] [address] [place] [address] Nitroglycerin Distributor: Peter Baer MD Ferritin [Mass/Vol] 22 ng/mL 13 - 150 ng/mL [facility] Iron Binding Cap.on 06-14-20 22 % Fe Saturation 14 % Low 20-55 [facility] Comment on above: Performed By: #### F MARCIAL, FEBC, BMPX #### [address] [address] Nitroglycerin Distributor: Peter Baer MD Performed By: #### B MPX, FEBC, FERI #### [address] [address] Nitroglycerin Distributor: Peter Baer MD Iron [Mass/Vol] 53 ug/dL Normal 37-145 [facility] Comment on above: Performed By: #### F MARCIAL, FEBC, BMPX #### [address] [address] Nitroglycerin Distributor: Peter Baer MD Performed By: #### B MPX, FEBC, FERI #### [address] [address] Nitroglycerin Distributor: Peter Baer MD Total Fe Binding Cap 372 ug/dL Normal 250-450 [facility] Comment on above: Performed By: #### F MARCIAL, FEBC, BMPX #### [address] [address] Nitroglycerin Distributor: Peter Baer MD Performed By: #### B MPX, FEBC, FERI #### [address] [address] Nitroglycerin Distributor: Peter Baer MD Unbound Fe Bind Cap 319 ug/dL Normal 112-347 [facility] Comment on above: Performed By: #### F MARCIAL, FEBC, BMPX #### [address] [address] Nitroglycerin Distributor: Peter Baer MD Performed By: #### B MPX, FEBC, FERI #### [address] [address] Nitroglycerin Distributor: Peter Baer MD Iron and TIBCon 06-14-2022 Interpretation and review of laboratory results Abnormal [facility] Iron [Mass/Vol] 53 ug/dL 37 - 145 ug/dL [facility] Iron Saturation 14 % Low 20 - 55 % [facility] TIBC 372 ug/dL 250 - 450 ug/dL [facility] UIBC 319 ug/dL 112 - 347 ug/dL [facility] No Panel Informationon 06-14 [facility] POC Glucose Fingerstickon Glucose [Mass/Vol] 81 mg/dL 65 - 105 mg/dL [facility] Glucose [Mass/Vol] 62 mg/dL Low 65 - 105 mg/dL [facility] Interpretation and review of laboratory results Abnormal [facility] Glucose [Mass/Vol] 104 mg/dL 65 - 105 mg/dL [facility] Brain Natri. Peptideon 06-13 Natriuretic peptide B (Bld) [Mass/Vol] 371 pg/mL High <300 [facility] Comment on above: Result Comment: An age-independent cutoff point of 300 pg/ml has a 98% negative predictive value excluding acute heart failure. Performed By: #### C DP #### [facility] [address] [place], [place] [id number] Nitroglycerin Distributor: Peter Baer MD Brain natriuretic peptideon 06-13-2022 Natriuretic peptide B (Bld) [Mass/Vol] 371 pg/mL High NINF - 300 pg/mL [facility] Comment on above: An age-independent cutoff point of 300 pg/ml has a 98% negative predictive value excluding acute heart failure. CBCon 06-13-2022 Erythrocyte distribution width (RBC) [Ratio] 18.3 % High 11.8-14.4 [facility] Comment on above: Performed By: #### C DP #### [facility] [address] [place], [place] [id number] Nitroglycerin Distributor: Peter Baer MD Hematocrit (Bld) [Volume fraction] 31.5 % Low 36.3-47.1 [facility] Comment on above: Performed By: #### C DP #### [address] [address] Nitroglycerin Distributor: Peter Baer MD Hemoglobin (Bld) [Mass/Vol] 11.0 g/dL Low 11.9-15.1 [facility] Comment on above: Performed By: #### C DP #### [address] [address] Nitroglycerin Distributor: Peter Baer MD MCH (RBC) [Entitic mass] 31.1 pg Normal 25.2-33.5 [facility] Comment on above: Performed By: #### C DP #### [address] [address] Nitroglycerin Distributor: Peter Baer MD MCHC (RBC) [Mass/Vol] 34.9 g/dL High 28.4-34.8 [facility] Comment on above: Performed By: #### C DP #### [address] [address] Nitroglycerin Distributor: Peter Baer MD MCV (RBC) [Entitic vol] 89.0 fL Normal 82.6-102.9 [facility] Comment on above: Performed By: #### C DP #### [address] [address] Nitroglycerin Distributor: Peter Baer MD NRBC Automated 0.5 per 100 WBC High 0.0 [facility] Comment on above: Performed By: #### C DP #### [address] [address] Nitroglycerin Distributor: Peter Baer MD Platelet mean volume (Bld) [Entitic vol] 11.2 fL Normal 8.1-13.5 [facility] Comment on above: Performed By: #### C DP #### [place] [address] Nitroglycerin Distributor: Peter Baer MD Platelets (Bld) [#/Vol] 743 10*3/uL High 138-453 [facility] Comment on above: Performed By: #### C DP #### [facility] [address] [place], [place] [id number] Nitroglycerin Distributor: Peter Baer MD RBC (Bld) [#/Vol] 3.54 10*6/uL Low 3.95-5.11 [facility] Comment on above: Performed By: #### C DP #### [facility] [employer] [facility] [place], [place] [phone] Nitroglycerin Distributor: Peter Baer MD WBC (Bld) [#/Vol] 9.6 10*3/uL Normal 3.5-11.3 [facility] Comment on above: Performed By: #### C DP #### [facility] [address] [place], [place] [id number] Nitroglycerin Distributor: Peter Baer MD Hematocrit (Bld) [Volume fraction] 31.5 % Low 36.3 - 47.1 % [facility] Hemoglobin (Bld) [Mass/Vol] 11.0 g/dL Low 11.9 - 15.1 g/dL [facility] Interpretation and review of laboratory results Abnormal [facility] MCH (RBC) [Entitic mass] 31.1 pg 25. 2 - 33.5 pg [facility] MCHC (RBC) [Mass/Vol] 34.9 g/dL High 28.4 - 34.8 g/dL [facility] MCV (RBC) [Entitic vol] 89.0 fL 82.6 - 102.9 fL [facility] NRBC Automated 0.5 High 0.0 per 100 WBC [facility] Platelet distribution width (Bld) [Ratio] 18.3 % High 11.8 - 14.4 % [facility] Platelet mean volume (Bld) [Entitic vol] 11.2 fL 8.1 - 13.5 fL [facility] Platelets (Bld) [#/Vol] 743 10*3/uL High [facility] RBC (Bld) [#/Vol] 3.54 10*6/uL Low 3.95 - 5.11 m/uL [facility] WBC (Bld) [#/Vol] 9.6 10*3/uL [facility] Comp Metabolic Pr/rfx MGon 0 - Potassium [Moles/Vol] 3.4 mmol/L Low 3.7-5.3 [facility] Comment on above: Performed By: #### C DP #### [facility] [employer] [address] [place] [address] Nitroglycerin Distributor: Peter Baer MD (cont.) [facility] Comment on above: Result Comment: Aver age GFR for 60-69 years old: 85 mL/min/1.73sq m Chronic Kidney Disease: <60 mL/min/1.73sq m Kidney failure: <15 mL/min/1.73sq m eGFR calculated using average adult body mass. Additional eGFR calculator available at: http://www.[employer]/multiple_crcl_2011.htm Performed By: #### C DP #### [facility] [employer] [address] [place] [address] Nitroglycerin Distributor: Peter Baer MD Albumin [Mass/Vol] 3.4 g/dL Low 3.5-5.2 [facility] Comment on above: Performed By: #### C DP #### [facility] [place] [address] Nitroglycerin Distributor: Peter Baer MD Albumin/Glob Ratio 1.3 Normal 1.0-2.5 [facility] Comment on above: Performed By: #### C DP #### [facility] [employer] [address] [place] [address] Nitroglycerin Distributor: Peter Baer MD Alkaline Phos 78 U/L Normal 35-104 [facility] Comment on above: Performed By: #### C DP #### [address] [address] Nitroglycerin Distributor: Peter Baer MD ALT [Catalytic activity/Vol] 10 U/L Normal 5-33 [facility] Comment on above: Performed By: #### C DP #### [address] [address] Nitroglycerin Distributor: Peter Baer MD Anion gap [Moles/Vol] 11 mmol/L Normal 9-17 [facility] Comment on above: Performed By: #### C DP #### [address] [address] Nitroglycerin Distributor: Peter Baer MD AST [Catalytic activity/Vol] 13 U/L Normal <32 [facility] Comment on above: Performed By: #### C DP #### [address] [address] Nitroglycerin Distributor: Peter Baer MD Bilirubin [Mass/Vol] 0.20 mg/dL Low 0.3-1.2 [facility] Comment on above: Performed By: #### C DP #### [address] [address] Nitroglycerin Distributor: Peter Baer MD Calcium [Mass/Vol] 8.8 mg/dL Normal 8.6-10.4 [facility] Comment on above: Performed By: #### C DP #### [address] [address] Nitroglycerin Distributor: Peter Baer MD Chloride [Moles/Vol] 107 mmol/L Normal 98-107 [facility] Comment on above: Performed By: #### C DP #### [address] [address] Nitroglycerin Distributor: Peter Baer MD CO2 [Moles/Vol] 25 mmol/L Normal 20-31 [facility] Comment on above: Performed By: #### C DP #### [address] [address] Nitroglycerin Distributor: Peter Baer MD Creatinine [Mass/Vol] 0.39 mg/dL Low 0.50-0.90 [facility] Comment on above: Performed By: #### C DP #### [address] [address] Nitroglycerin Distributor: Peter Baer MD GFR, Amer >60 Normal >60 [facility] Comment on above: Performed By: #### C DP #### [address] [address] Nitroglycerin Distributor: Peter Baer MD GFR,non Amer >60 Normal >60 [facility] Comment on above: Performed By: #### C DP #### [address] [address] Nitroglycerin Distributor: Peter Baer MD Glucose [Mass/Vol] 80 mg/dL Normal 70-99 [facility] Comment on above: Performed By: #### C DP #### [address] [address] Nitroglycerin Distributor: Peter Baer MD Protein [Mass/Vol] 6.1 g/dL Low 6.4-8.3 [facility] Comment on above: Performed By: #### C DP #### [address] [address] Nitroglycerin Distributor: Peter Baer MD Sodium [Moles/Vol] 143 mmol/L Normal 135-144 [facility] Comment on above: Performed By: #### C DP #### [address] [address] Nitroglycerin Distributor: Peter Baer MD Urea nitrogen [Mass/Vol] 6 mg/dL Low 8-23 [facility] Comment on above: Performed By: #### C DP #### [facility] [address] [id number] Nitroglycerin Distributor: Peter Baer MD Comprehensive Metabolic Pane l w/ Reflex to MGon 06-13-2022 Albumin [Mass/Vol] 3.4 g/dL Low 3.5 - 5.2 g/dL [facility] Albumin/Globulin [Mass ratio] 1.3 {ratio} 1 - 2.5 [facility] ALP (Bld) [Catalytic activity/Vol] 78 U/L 35 - 104 U/L [facility] ALT [Catalytic activity/Vol] 10 U/L 5 - 33 U/L [facility] Anion gap [Moles/Vol] 11 mmol/L 9 - 17 mmol/L [facility] AST [Catalytic activity/Vol] 13 U/L NINF - 32 U/L [facility] Bilirubin [Mass/Vol] 0.20 mg/dL Low 0.3 - 1 .2 mg/dL [facility] Calcium [Mass/Vol] 8.8 mg/dL 8.6 - 10. 4 mg/dL [facility] Chloride [Moles/Vol] 107 mmol/L 98 - 10 7 mmol/L [facility] CO2 [Moles/Vol] 25 mmol/L 20 - 31 mmol/L [facility] Creatinine [Mass/Vol] 0.39 mg/dL Low 0.5 - 0.9 mg/dL [facility] Free PSA/Total PSA [Mass fraction] 6.1 g/dL Low 6.4 - 8.3 g/dL [facility] GFR >60 60 - PI NF mL/min [facility] GFR Non- >60 60 - PINF mL/min [facility] GFR/1.73 sq M.predicted MDRD (S/P/Bld) [Vol rate/Area] [facility] Comment on above: Average GFR for 60-6 9 years old: 85 mL/min/1.73sq m Chronic Kidney Disease: <60 mL/min/1.73sq m Kidney failure: <15 mL/min/1.73sq m eGFR calculated using average adult body mass. Additional eGFR calculator available at: http://www.[employer]multiple_crcl_2012.htm Glucose [Mass/Vol] 80 mg/dL 70 - 99 mg/dL [facility] [employer] Interpretation and review of laboratory results Abnormal [facility] [employer] Potassium [Moles/Vol] 3.4 mmol/L Low 3.7 - 5.3 mmol/L [employer] [facility] [employer] Sodium [Moles/Vol] 143 mmol/L 135 - 144 mmol/L [facility] [employer] Urea nitrogen (BldV) [Mass/Vol] 6 mg/dL Low 8 - 23 mg/dL [facility] E[facility] 12 leadon 06-13-2022 Atrial Rate 59 BPM [facility] Work Phone: P [place] 68 degrees [facility] Work Phone: P-R Interval 146 ms [facility] Work Phone: Q-T Interval 486 ms [facility] Work Phone: QRS Duration 74 ms [facility] Work Phone: QTc Calculation (Bazett) 481 ms [facility] Work Phone: R [place] -34 degrees [facility] Work Phone: T [place] 66 degrees [facility] Work Phone: Ventricular Rate 59 BPM [facility] [employer] Work Phone: Sinus bradycardia Left axis deviation Nonspecific T wave abnormality Abnormal ECG When compared with ECG of 25-APR-2022 20:33, No significant change was found [facility] Joseph Moreno MD - 06/13/2022 Sinus bradycardia Left axis deviation Nonspecific T wave abnormality Abnormal ECG When compared with ECG of 25-APR-2022 20:33, No significant change was found [facility] Work Phone: [facility] [employer] Phone: Lipid Profileon 06-13-2022 Cholesterol [Mass/Vol] 114 mg/dL Normal <200 [facility] Comment on above: Result Comment: Cholesterol Guidelines: <200 Desirable 200-240 Borderline >240 Undesirable Performed By: #### C DP #### [address] [address] Nitroglycerin Distributor: Peter Baer MD Cholesterol in HDL [Mass/Vol] 31 mg/dL Low >40 [facility] Comment on above: Result Comment: HDL Guidelines: <40 Undesirable 40-59 Borderline >59 Desirable Performed By: #### C DP #### [address] [address] Nitroglycerin Distributor: Peter Baer MD Cholesterol in LDL [Mass/Vol] 49 mg/dL Normal 0-130 [facility] Comment on above: Result Comment: LDL Guidelines: <100 Desirable 100-129 Near to/above Desirable 130-159 Borderline >159 Undesirable Direct (measured) LDL and calculated LDL are not interchangeable tests. Performed By: #### C DP #### [address] [address] Nitroglycerin Distributor: Peter Baer MD Cholesterol.total/Cholest sidney in HDL [Mass ratio] 3.7 {ratio} Normal <5 [facility] Comment on above: Performed By: #### C DP #### [address] [address] Nitroglycerin Distributor: Peter Baer MD Triglyceride [Mass/Vol] 169 mg/dL High <150 [facility] Comment on above: Result Comment: Triglyceride Guidelines: <150 Desirable 150-199 Borderline 200-499 High >499 Very high Based on AHA Guidelines for fasting triglyceride, July 2012. Performed By: #### C DP #### [address], [place] [id number] Nitroglycerin Distributor: Peter Baer MD Lipid panel - fastingon 05-17 Cholesterol [Mass/Vol] 114 mg/dL NINF - 200 mg/dL [facility] [place] [facility] Comment on above: Cholesterol Guidelines: <200 Desirable 200-240 Borderline >240 Undesirable Cholesterol in HDL [Mass/Vol] 31 mg/dL Low 40 - PINF mg/dL [facility] [place] [facility] Comment on above: HDL Guidelines: <40 Undesirable 40-59 Borderline >59 Desirable Cholesterol in LDL [Mass/Vol] 49 mg/dL 0 - 130 mg/dL [facility] [place] Comment on above: LDL Guidelines: <100 Desirable 100-129 Near to/above Desirable 130-159 Borderline >159 Undesirable Direct (measured) LDL and calculated LDL are not interchangeable tests. Cholesterol.total/Cholest sidney in HDL [Mass ratio] 3.7 {ratio} NINF - 5 [facility] [facility] [place] [facility] Triglyceride [Mass/Vol] 169 mg/dL High NINF - 150 mg/dL [facility] Comment on above: Triglyceride Guidelines: <150 Desirable 150-199 Borderline 200-499 High >499 Very high Based on AHA Guidelines for fasting triglyceride, July 2012. Magnesiumon 06-13-2022 Magnesium [Mass/Vol] 2.0 mg/dL Normal 1.6-2.6 [facility] Comment on above: Performed By: #### C DP #### [facility] [address] [place] [address] [id number] Nitroglycerin Distributor: Peter Baer MD Magnesium [Mass/Vol] 2.0 mg/dL 1.6 - 2 .6 mg/dL [facility] [place] [facility] No Panel Informationon 06-13 Interpretation and review of laboratory results Abnormal [facility] [place] [facility] POC Glucose Fingerstickon Glucose [Mass/Vol] 99 mg/dL 65 - 105 mg/dL [facility] Glucose [Mass/Vol] 68 mg/dL 65 - 105 mg/dL [facility] Glucose [Mass/Vol] 89 mg/dL 65 - 105 mg/dL [facility] Glucose [Mass/Vol] 73 mg/dL 65 - 105 mg/dL [facility] Glucose [Mass/Vol] 77 mg/dL 65 - 105 mg/dL [facility] Troponinon 06-13-2022 Troponin, High Sens 11 ng/L Normal 0-14 [facility] Comment on above: Result Comment: High Sensitivity Troponin values cannot be compared with other Troponin methodologies. Patients with high levels of Biotin oral intake (i.e >5mg/day) may have falsely decreased Troponin levels. Samples collected within 8 hours of biotin intake may require additional information for diagnosis. Performed By: #### T ROPI #### [facility] [address] [place] [address] Nitroglycerin Distributor: Peter Baer MD Troponin, High Sensitivity 11 ng/L 0 - 14 ng/L [facility] Comment on above: High Sensitivity Troponin values cannot be compared with other Troponin methodologies. Patients with high levels of Biotin oral intake (i.e >5mg/day) may have falsely decreased Troponin levels. Samples collected within 8 hours of biotin intake may require additional information for diagnosis. [facility] Troponin, High Sens 11 ng/L Normal 0-14 [facility] Comment on above: Result Comment: High Sensitivity Troponin values cannot be compared with other Troponin methodologies. Patients with high levels of Biotin oral intake (i.e >5mg/day) may have falsely decreased Troponin levels. Samples collected within 8 hours of biotin intake may require additional information for diagnosis. Performed By: #### T ROPI #### [facility] [address] [place] [address] Nitroglycerin Distributor: Peter Baer MD Troponin, High Sensitivity 11 ng/L 0 - 14 ng/L [facility] Comment on above: High Sensitivity Troponin values cannot be compared with other Troponin methodologies. Patients with high levels of Biotin oral intake (i.e >5mg/day) may have falsely decreased Troponin levels. Samples collected within 8 hours of biotin intake may require additional information for diagnosis. [facility] Brain Natri. Peptideon 06-11 Natriuretic peptide B (Bld) [Mass/Vol] 443 pg/mL High <300 [facility] Comment on above: Result Comment: An age-independent cutoff point of 300 pg/ml has a 98% negative predictive value excluding acute heart failure. Performed By: #### C DP #### [facility] [address] [place], [place] [id number] Nitroglycerin Distributor: Peter Baer MD Brain Natriuretic Peptideon 06-11-2022 Interpretation and review of laboratory results Abnormal [place] [employer] [facility] Natriuretic peptide B (Bld) [Mass/Vol] 443 pg/mL High NINF - 300 pg/mL [facility] Comment on above: An age-independent cutoff point of 300 pg/ml has a 98% negative predictive value excluding acute heart failure. No Panel Informationon 06-11 [facility] POC Glucose Fingerstickon Glucose [Mass/Vol] 106 mg/dL High 65 - 105 mg/dL [facility] Interpretation and review of laboratory results Abnormal [facility] Glucose [Mass/Vol] 89 mg/dL 65 - 105 mg/dL [facility] Troponinon 06-11-2022 Troponin, High Sens 11 ng/L Normal 0-14 [facility] Comment on above: Result Comment: High Sensitivity Troponin values cannot be compared with other Troponin methodologies. Patients with high levels of Biotin oral intake (i.e >5mg/day) may have falsely decreased Troponin levels. Samples collected within 8 hours of biotin intake may require additional information for diagnosis. Performed By: #### C DP #### [facility] [address] [place], [place] [id number] Nitroglycerin Distributor: Peter Baer MD Troponin, High Sensitivity 11 ng/L 0 - 14 ng/L [facility] Comment on above: High Sensitivity Troponin values cannot be compared with other Troponin methodologies. Patients with high levels of Biotin oral intake (i.e >5mg/day) may have falsely decreased Troponin levels. Samples collected within 8 hours of biotin intake may require additional information for diagnosis. Basic Metabolic Panelon 05-17 Anion gap [Moles/Vol] 18 mmol/L High 9 - 17 mmol/L [facility] Calcium [Mass/Vol] 8.7 mg/dL 8.6 - 10. 4 mg/dL [facility] Chloride [Moles/Vol] 101 mmol/L 98 - 10 7 mmol/L [facility] CO2 [Moles/Vol] 23 mmol/L 20 - 31 mmol/L [facility] Creatinine [Mass/Vol] 0.85 mg/dL 0.5 - 0.9 mg/dL [facility] GFR >60 60 - PI NF mL/min [facility] GFR Non- >60 60 - PINF mL/min [facility] GFR/1.73 sq M.predicted MDRD (S/P/Bld) [Vol rate/Area] [facility] Comment on above: Average GFR for 60-6 9 years old: 85 mL/min/1.73sq m Chronic Kidney Disease: <60 mL/min/1.73sq m Kidney failure: <15 mL/min/1.73sq m eGFR calculated using average adult body mass. Additional eGFR calculator available at: http://www.[employer]multiple_crcl_2011.htm Glucose [Mass/Vol] 47 mg/dL Low 70 - 99 mg/dL [facility] Interpretation and review of laboratory results Abnormal [facility] Potassium [Moles/Vol] 3.6 mmol/L Low 3.7 - 5.3 mmol/L [facility] Sodium [Moles/Vol] 142 mmol/L 135 - 144 mmol/L [facility] Urea nitrogen (BldV) [Mass/Vol] 12 mg/dL 8 - 23 mg/dL [facility] Basic Metabolic Profon 06-10 Glucose [Mass/Vol] 47 mg/dL Low 70-99 [facility] Comment on above: Performed By: #### C OVRB #### [facility] [place] [address] Nitroglycerin Distributor: Peter Baer MD (cont.) Normal [facility] Comment on above: Result Comment: Aver age GFR for 60-69 years old: 85 mL/min/1.73sq m Chronic Kidney Disease: <60 mL/min/1.73sq m Kidney failure: <15 mL/min/1.73sq m eGFR calculated using average adult body mass. Additional eGFR calculator available at: http://www.[employer]multiple_crcl_2012.htm Performed By: #### C OVRB #### [address] [address] Nitroglycerin Distributor: Peter Baer MD Anion gap [Moles/Vol] 18 mmol/L High 9-17 [facility] Comment on above: Performed By: #### C OVRB #### [address] [address] Nitroglycerin Distributor: Peter Baer MD Calcium [Mass/Vol] 8.7 mg/dL Normal 8.6-10.4 [facility] Comment on above: Performed By: #### C OVRB #### [address] [address] Nitroglycerin Distributor: Peter Baer MD Chloride [Moles/Vol] 101 mmol/L Normal 98-107 [facility] Comment on above: Performed By: #### C OVRB #### [address] [address] Nitroglycerin Distributor: Peter Baer MD CO2 [Moles/Vol] 23 mmol/L Normal 20-31 [facility] Comment on above: Performed By: #### C OVRB #### [address] [address] Nitroglycerin Distributor: Peter Baer MD Creatinine [Mass/Vol] 0.85 mg/dL Normal 0.50-0.90 [facility] Comment on above: Performed By: #### C OVRB #### [address] [address] Nitroglycerin Distributor: Peter Baer MD GFR, Amer >60 Normal >60 [facility] Comment on above: Performed By: #### C OVRB #### [address] [address] Nitroglycerin Distributor: Peter Baer MD GFR,non Amer >60 Normal >60 [facility] Comment on above: Performed By: #### C OVRB #### [address] [address] Nitroglycerin Distributor: Peter Baer MD Potassium [Moles/Vol] 3.6 mmol/L Low 3.7-5.3 [facility] Comment on above: Performed By: #### C OVRB #### [address] [address] Nitroglycerin Distributor: Peter Baer MD Sodium [Moles/Vol] 142 mmol/L Normal 135-144 [facility] Comment on above: Performed By: #### C OVRB #### [address] [address] Nitroglycerin Distributor: Peter Baer MD Urea nitrogen [Mass/Vol] 12 mg/dL Normal 8-23 [facility] Comment on above: Performed By: #### C OVRB #### [address] [address] Nitroglycerin Distributor: Peter Baer MD CBC with Auto Differentialon 06-10-2022 Absolute Eos # 0.26 [facility] Absolute Immature Granulocyte 0.07 [facility] Absolute Lymph # 4.04 High [facility] Absolute Boyd # 0.79 [facility] Basophils (Bld) [#/Vol] 0.05 10*3/uL [facility] Basophils/100 WBC (Bld) 0 % 0 - 2 % [facility] Eosinophils/100 WBC (Bld) 2 % 1 - 4 % [facility] Hematocrit (Bld) [Volume fraction] 38.2 % 36.3 - 47.1 % [facility] Hemoglobin (Bld) [Mass/Vol] 11.8 g/dL Low 11.9 - 15.1 g/dL [facility] Immature granulocytes/100 WBC (Bld) 1 % High 0 [facility] Interpretation and review of laboratory results Abnormal [facility] Lymphocytes/100 WBC (Bld) 27 % 24 - 43 % [facility] MCH (RBC) [Entitic mass] 28.6 pg 25. 2 - 33.5 pg [facility] MCHC (RBC) [Mass/Vol] 30.9 g/dL 28.4 - 34.8 g/dL [facility] MCV (RBC) [Entitic vol] 92.5 fL 82.6 - 102.9 fL [facility] Monocytes/100 WBC (Bld) 5 % 3 - 12 % B [facility] NRBC Automated 0.0 0.0 per 100 WBC [facility] Platelet distribution width (Bld) [Ratio] 16.9 % High 11.8 - 14.4 % [facility] Platelet mean volume (Bld) [Entitic vol] 10.4 fL 8.1 - 13.5 fL [facility] Platelets (Bld) [#/Vol] 322 10*3/uL [facility] RBC (Bld) [#/Vol] 4.13 10*6/uL 3.95 - 5.11 m/uL [facility] RBC (Bld) [#/Vol] ANISOCYTOSIS PRESENT [facility] Segmented neutrophils/100 WBC (Bld) 65 % 36 - 65 % [facility] Segs Absolute 9.79 High [facility] WBC (Bld) [#/Vol] 15.0 10*3/uL High [facility] CBC with Diffon 06-10-2022 Abs. Basophil 0.05 k/uL Normal 0.00-0.20 [facility] Comment on above: Performed By: #### C OVRB #### [address] [address] Nitroglycerin Distributor: Peter Baer MD Abs.Imm.Granulocyte 0.07 k/uL Normal 0.00-0.30 [facility] Comment on above: Performed By: #### C OVRB #### [address] [address] Nitroglycerin Distributor: Peter Baer MD Abs.Neutrophil (Seg) 9.79 k/uL High 1.50-8.10 [facility] Comment on above: Performed By: #### C OVRB #### [address] [address] Nitroglycerin Distributor: Peter Baer MD Basophils/100 WBC (Bld) 0 % Normal 0-2 M [facility] Comment on above: Performed By: #### C OVRB #### [address] [address] Nitroglycerin Distributor: Peter Baer MD Eosinophils (Bld) [#/Vol] 0.26 10*3/uL Normal 0.00-0.4 4 [facility] Comment on above: Performed By: #### C OVRB #### [address] [address] Nitroglycerin Distributor: Peter Baer MD Eosinophils/100 WBC (Bld) 2 % Normal 1-4 [facility] Comment on above: Performed By: #### C OVRB #### [address] [address] Nitroglycerin Distributor: Peter Baer MD Erythrocyte distribution width (RBC) [Ratio] 16.9 % High 11.8-14.4 [facility] Comment on above: Performed By: #### C OVRB #### [address] [address] Nitroglycerin Distributor: Peter Baer MD Hematocrit (Bld) [Volume fraction] 38.2 % Normal 36.3-47.1 [facility] Comment on above: Performed By: #### C OVRB #### [address] [address] Nitroglycerin Distributor: Peter Baer MD Hemoglobin (Bld) [Mass/Vol] 11.8 g/dL Low 11.9-15.1 [facility] Comment on above: Performed By: #### C OVRB #### [address] [address] Nitroglycerin Distributor: Peter Baer MD Immature granulocytes/100 WBC (Bld) 1 % High 0 [facility] Comment on above: Performed By: #### C OVRB #### [address] [address] Nitroglycerin Distributor: Peter Baer MD Lymphocytes (Bld) [#/Vol] 4.04 10*3/uL High 1.10-3.7 0 [facility] Comment on above: Performed By: #### C OVRB #### [address] [address] Nitroglycerin Distributor: Peter Baer MD Lymphocytes/100 WBC (Bld) 27 % Normal 24-43 [facility] Comment on above: Performed By: #### C OVRB #### [address] [address] Nitroglycerin Distributor: Peter Baer MD MCH (RBC) [Entitic mass] 28.6 pg Normal 25.2-33.5 [facility] Comment on above: Performed By: #### C OVRB #### [address] [address] Nitroglycerin Distributor: Peter Baer MD MCHC (RBC) [Mass/Vol] 30.9 g/dL Normal 28.4-34.8 [facility] Comment on above: Performed By: #### C OVRB #### [address] [address] Nitroglycerin Distributor: Peter Baer MD MCV (RBC) [Entitic vol] 92.5 fL Normal 82.6-102.9 [facility] Comment on above: Performed By: #### C OVRB #### [address] [address] Nitroglycerin Distributor: Peter Baer MD Monocytes (Bld) [#/Vol] 0.79 10*3/uL Normal 0.10-1.20 [facility] Comment on above: Performed By: #### C OVRB #### [address] [address] Nitroglycerin Distributor: Peter Baer MD Monocytes/100 WBC (Bld) 5 % Normal 3-12 [facility] Comment on above: Performed By: #### C OVRB #### [address] [address] Nitroglycerin Distributor: Peter Baer MD Neutrophil (Seg) 65 % Normal 36-65 [facility] Comment on above: Performed By: #### C OVRB #### [address] [address] Nitroglycerin Distributor: Peter Baer MD NRBC Automated 0.0 per 100 WBC Normal 0.0 [facility] Comment on above: Performed By: #### C OVRB #### [address] [address] Nitroglycerin Distributor: Peter Baer MD Platelet mean volume (Bld) [Entitic vol] 10.4 fL Normal 8.1-13.5 [facility] Comment on above: Performed By: #### C OVRB #### [address] [address] Nitroglycerin Distributor: Peter Baer MD Platelets (Bld) [#/Vol] 322 10*3/uL Normal 138-453 [facility] Comment on above: Performed By: #### C OVRB #### [address] [address] Nitroglycerin Distributor: Peter Baer MD RBC (Bld) [#/Vol] 4.13 10*6/uL Normal 3.95-5.11 [facility] Comment on above: Performed By: #### C OVRB #### [address] [address] Nitroglycerin Distributor: Peter Baer MD RBC morphology finding Nom (Bld) ANISOCYTOSIS PRESENT Normal [facility] Comment on above: Performed By: #### C OVRB #### [address] [address] Nitroglycerin Distributor: Peter Baer MD WBC (Bld) [#/Vol] 15.0 10*3/uL High 3.5-11.3 [facility] Comment on above: Performed By: #### C OVRB #### [address] [address] Nitroglycerin Distributor: Peter Baer MD COVID-19, Rapidon 06-10-2022 SARS-CoV-2 (COVID-19) RNA MARQUITA+probe Ql (Unsp spec) Not detected Not Detected [facility] Comment on above: Rapid NAAT: The specimen is NEGATIVE for SARS-CoV-2, the novel coronavirus associated with COVID-19. The ID NOW COVID-19 assay is designed to detect the virus that causes COVID-19 in patients with signs and symptoms of infection who are suspected of COVID-19. An individual without symptoms of COVID-19 and who is not shedding SARS-CoV-2 virus would expect to have a negative (not detected) result in this assay. Negative results should be treated as presumptive and, if inconsistent with clinical signs and symptoms or necessary for patient management, should be tested with an alternative molecular assay. Negative results do not preclude SARS-CoV-2 infection and should not be used as the sole basis for patient management decisions. Fact sheet for Healthcare Providers: https://www.[employer].gov/media/606953/download Fact sheet for Patients: https://www.fda.gov/media/018825/download Methodology: Isothermal Nucleic Acid Amplification Specimen Description .NASOPHARYNGEAL SWAB [facility] Magnesiumon 06-10-2022 Magnesium [Mass/Vol] 2.0 mg/dL Normal 1.6-2.6 [facility] Comment on above: Performed By: #### C OVRB #### [facility] [address] [place] [address] Nitroglycerin Distributor: Peter Baer MD Magnesium [Mass/Vol] 2.0 mg/dL 1.6 - 2 .6 mg/dL [facility] [id number] 06-10-2022 SARS-CoV-2 (COVID-19) RNA MARQUITA+probe Ql (Unsp spec) Not detected Normal [facility] Comment on above: Result Comment: Rapid NAAT: The specimen is NEGATIVE for SARS-CoV-2, the novel coronavirus associated with COVID-19. The ID NOW COVID-19 assay is designed to detect the virus that causes COVID-19 in patients with signs and symptoms of infection who are suspected of COVID-19. An individual without symptoms of COVID-19 and who is not shedding SARS-CoV-2 virus would expect to have a negative (not detected) result in this assay. Negative results should be treated as presumptive and, if inconsistent with clinical signs and symptoms or necessary for patient management, should be tested with an alternative molecular assay. Negative results do not preclude SARS-CoV-2 infection and should not be used as the sole basis for patient management decisions. Fact sheet for Healthcare Providers: https://www.fda.gov/media/689639/download Fact sheet for Patients: https://www.fda.gov/media/195222/download Methodology: Isothermal Nucleic Acid Amplification Performed By: #### C OVRB #### [facility] [address] [place], [place] [id number] Nitroglycerin Distributor: Peter Baer MD Troponinon 06-10-2022 Troponin, High Sens 10 ng/L Normal 0-14 [facility] Comment on above: Result Comment: High Sensitivity Troponin values cannot be compared with other Troponin methodologies. Patients with high levels of Biotin oral intake (i.e >5mg/day) may have falsely decreased Troponin levels. Samples collected within 8 hours of biotin intake may require additional information for diagnosis. Performed By: #### C OVRB #### [facility] [address] [place] [address] [id number] Nitroglycerin Distributor: Peter Baer MD Troponin, High Sens 9 ng/L Normal 0-14 [facility] Comment on above: Result Comment: High Sensitivity Troponin values cannot be compared with other Troponin methodologies. Patients with high levels of Biotin oral intake (i.e >5mg/day) may have falsely decreased Troponin levels. Samples collected within 8 hours of biotin intake may require additional information for diagnosis. Performed By: #### C OVRB #### [facility] [address] [place], [place] [id number] Nitroglycerin Distributor: Peter Baer MD Troponin, High Sensitivity 10 ng/L 0 - 14 ng/L [facility] Comment on above: High Sensitivity Troponin values cannot be compared with other Troponin methodologies. Patients with high levels of Biotin oral intake (i.e >5mg/day) may have falsely decreased Troponin levels. Samples collected within 8 hours of biotin intake may require additional information for diagnosis. [facility] Troponin, High Sensitivity 9 ng/L 0 - 14 ng/L [facility] Comment on above: High Sensitivity Troponin values cannot be compared with other Troponin methodologies. Patients with high levels of Biotin oral intake (i.e >5mg/day) may have falsely decreased Troponin levels. Samples collected within 8 hours of biotin intake may require additional information for diagnosis. [facility]+ XR CHEST PORTABLEon 06-10-20 XR CHEST PORTABLE EXAMINATION: ONE XRAY VIEW OF THE CHEST 06/10/2022 4:01 pm COMPARISON: None. HISTORY: ORDERING SYSTEM PROVIDED HISTORY: chest pain TECHNOLOGIST PROVIDED HISTORY: chest pain FINDINGS: Cardiomediastinal silhouette is normal in size. There is no pleural effusion or pneumothorax. There are faint bibasilar opacities. No acute osseous abnormality. IMPRESSION: Faint bibasilar opacities, atelectasis versus pneumonia. Interpreted by: Gene Olivares MD Signed by: Gene Olivares MD 06/10/22 Final result Normal [facility] Faint bibasilar opacities, atelectasis versus pneumonia. [facility] EXAMINATION: ONE XRAY VIEW OF THE CHEST 06/10/2022 4:01 pm COMPARISON: None. HISTORY: ORDERING SYSTEM PROVIDED HISTORY: chest pain TECHNOLOGIST PROVIDED HISTORY: chest pain FINDINGS: Cardiomediastinal silhouette is normal in size. There is no pleural effusion or pneumothorax. There are faint bibasilar opacities. No acute osseous abnormality. [facility] Gene Olivares MD - 06/10/2022 EXAMINATION: ONE XRAY VIEW OF THE CHEST 06/10/2022 4:01 pm COMPARISON: None. HISTORY: ORDERING SYSTEM PROVIDED HISTORY: chest pain TECHNOLOGIST PROVIDED HISTORY: chest pain FINDINGS: Cardiomediastinal silhouette is normal in size. There is no pleural effusion or pneumothorax. There are faint bibasilar opacities. No acute osseous abnormality. IMPRESSION: Faint bibasilar opacities, atelectasis versus pneumonia. [facility] [employer] Phone: Radiology Study observation (narrative) [facility] [place] [facility] [employer] Phone: XR CHEST PORTABLEOrdered By: Gene Olivares on 06-10-2022 [facility] Work Phone: COVID-19, Rapidon 04-26-2022 SARS-CoV-2 (COVID-19) RNA MARQUITA+probe Ql (Unsp spec) Not detected Not Detected [facility] [employer] Comment on above: Rapid NAAT: The specimen is NEGATIVE for SARS-CoV-2, the novel coronavirus associated with COVID-19. The ID NOW COVID-19 assay is designed to detect the virus that causes COVID-19 in patients with signs and symptoms of infection who are suspected of COVID-19. An individual without symptoms of COVID-19 and who is not shedding SARS-CoV-2 virus would expect to have a negative (not detected) result in this assay. Negative results should be treated as presumptive and, if inconsistent with clinical signs and symptoms or necessary for patient management, should be tested with an alternative molecular assay. Negative results do not preclude SARS-CoV-2 infection and should not be used as the sole basis for patient management decisions. Fact sheet for Healthcare Providers: https://www.fda.gov/media/619895/download Fact sheet for Patients: https://www.fda.gov/media/335989/download Methodology: Isothermal Nucleic Acid Amplification Specimen Description .NASOPHARYNGEAL SWAB [facility] [id number] 04-26-2022 SARS-CoV-2 (COVID-19) RNA MARQUITA+probe Ql (Unsp spec) Not detected Normal [facility] Comment on above: Result Comment: Rapid NAAT: The specimen is NEGATIVE for SARS-CoV-2, the novel coronavirus associated with COVID-19. The ID NOW COVID-19 assay is designed to detect the virus that causes COVID-19 in patients with signs and symptoms of infection who are suspected of COVID-19. An individual without symptoms of COVID-19 and who is not shedding SARS-CoV-2 virus would expect to have a negative (not detected) result in this assay. Negative results should be treated as presumptive and, if inconsistent with clinical signs and symptoms or necessary for patient management, should be tested with an alternative molecular assay. Negative results do not preclude SARS-CoV-2 infection and should not be used as the sole basis for patient management decisions. Fact sheet for Healthcare Providers: https://www.fda.gov/media/517053/download Fact sheet for Patients: https://www.fda.gov/media/983443/download Methodology: Isothermal Nucleic Acid Amplification Performed By: #### Jolene DP #### [facility] [address] [place] [address] Nitroglycerin Distributor: Peter Baer MD Performed By: #### Jolene OVRB #### [facility] [address] [place] [address] Nitroglycerin Distributor: Peter Baer MD Troponinon 04-26-2022 Troponin, High Sens 16 ng/L High 0-14 [facility] Comment on above: Result Comment: High Sensitivity Troponin values cannot be compared with other Troponin methodologies. Patients with high levels of Biotin oral intake (i.e >5mg/day) may have falsely decreased Troponin levels. Samples collected within 8 hours of biotin intake may require additional information for diagnosis. Performed By: #### T TYREL TREVIÑO, BMP #### [facility] [address] [place] [address] Nitroglycerin Distributor: Peter Baer MD Performed By: #### C NEAL GRIFFIN BMP #### [facility] [address] [place] [address] Nitroglycerin Distributor: Peter Baer MD Troponin, High Sens 12 ng/L Normal 0-14 [facility] Comment on above: Result Comment: High Sensitivity Troponin values cannot be compared with other Troponin methodologies. Patients with high levels of Biotin oral intake (i.e >5mg/day) may have falsely decreased Troponin levels. Samples collected within 8 hours of biotin intake may require additional information for diagnosis. Performed By: #### C DP #### [facility] [address] [place] [address] Nitroglycerin Distributor: Peter Baer MD Performed By: #### C OVRB #### [facility] [address] [place] [address] Nitroglycerin Distributor: Peter Baer MD Troponin, High Sensitivity 12 ng/L 0 - 14 ng/L [facility] [employer] Comment on above: High Sensitivity Troponin values cannot be compared with other Troponin methodologies. Patients with high levels of Biotin oral intake (i.e >5mg/day) may have falsely decreased Troponin levels. Samples collected within 8 hours of biotin intake may require additional information for diagnosis. [facility] Basic Metabolic Panelon - Anion gap [Moles/Vol] 11 mmol/L 9 - 17 mmol/L [facility] Calcium [Mass/Vol] 9.1 mg/dL 8.6 - 10. 4 mg/dL [facility] Chloride [Moles/Vol] 106 mmol/L 98 - 10 7 mmol/L [facility] CO2 [Moles/Vol] 23 mmol/L 20 - 31 mmol/L [facility] Creatinine [Mass/Vol] 0.72 mg/dL 0.50 - 0.90 mg/dL [facility] GFR >60 >60 mL/min [facility] GFR Non- >60 >60 mL/min [facility] GFR/1.73 sq M.predicted MDRD (S/P/Bld) [Vol rate/Area] [facility] Comment on above: Average GFR for 60-6 9 years old: 85 mL/min/1.73sq m Chronic Kidney Disease: <60 mL/min/1.73sq m Kidney failure: <15 mL/min/1.73sq m eGFR calculated using average adult body mass. Additional eGFR calculator available at: http://www.[employer]multiple_crcl_2011.htm Glucose [Mass/Vol] 78 mg/dL 70 - 99 mg/dL [facility] Interpretation and review of laboratory results Abnormal [facility] Potassium [Moles/Vol] 3.6 mmol/L Low 3.7 - 5.3 mmol/L [facility] Sodium [Moles/Vol] 140 mmol/L 135 - 144 mmol/L [facility] Urea nitrogen (BldV) [Mass/Vol] 10 mg/dL 8 - 23 mg/dL [facility] Basic Metabolic Profon 04-25 (cont.) Normal [facility] Comment on above: Result Comment: Aver age GFR for 60-69 years old: 85 mL/min/1.73sq m Chronic Kidney Disease: <60 mL/min/1.73sq m Kidney failure: <15 mL/min/1.73sq m eGFR calculated using average adult body mass. Additional eGFR calculator available at: http://www.[employer]multiple_crcl_2012.htm Performed By: #### T TYREL TREVIÑO, BMP #### [address] [address] Nitroglycerin Distributor: Peter Baer MD Performed By: #### C NEAL GRIFFIN, BMP #### [address] [address] Nitroglycerin Distributor: Peter Baer MD Anion gap [Moles/Vol] 11 mmol/L Normal 9-17 [facility] Comment on above: Performed By: #### T TYREL TREVIÑO, BMP #### [address] [address] Nitroglycerin Distributor: Peter Baer MD Performed By: #### C NEAL GRIFFIN, BMP #### [address] [address] Nitroglycerin Distributor: Peter Baer MD Calcium [Mass/Vol] 9.1 mg/dL Normal 8.6-10.4 [facility] Comment on above: Performed By: #### T TYREL TREVIÑO, BMP #### [address] [address] Nitroglycerin Distributor: Peter Baer MD Performed By: #### C ANIKA GRIFFINI, BMP #### [facility] [address] [place] [address] Nitroglycerin Distributor: Peter Baer MD Chloride [Moles/Vol] 106 mmol/L Normal 98-107 [facility] Comment on above: Performed By: #### T TYREL TREVIÑO, BMP #### [address] [address] Nitroglycerin Distributor: Peter Baer MD Performed By: #### C ANIKA GRIFFINI, BMP #### [facility] [address] [place] [address] Nitroglycerin Distributor: Peter Baer MD CO2 [Moles/Vol] 23 mmol/L Normal 20-31 [facility] Comment on above: Performed By: #### T ROPI, CDP, BMP #### [facility] [address] [place] [address] Nitroglycerin Distributor: Peter Baer MD Performed By: #### C DP, TROPI, BMP #### [facility] [address] [place] [address] Nitroglycerin Distributor: Peter Baer MD Creatinine [Mass/Vol] 0.72 mg/dL Normal 0.50-0.90 [facility] Comment on above: Performed By: #### T ROPI, CDP, BMP #### [facility] [address] [place] [address] Nitroglycerin Distributor: Peter Baer MD Performed By: #### C DP, TROPI, BMP #### [facility] [address] [place] [address] Nitroglycerin Distributor: Peter Baer MD GFR, Amer >60 Normal >60 [facility] Comment on above: Performed By: #### T ROPI, CDP, BMP #### [facility] [address] [place] [address] Nitroglycerin Distributor: Peter Baer MD Performed By: #### C DP, TROPI, BMP #### [facility] [address] [place] [address] Nitroglycerin Distributor: Peter Baer MD GFR,non Amer >60 Normal >60 [facility] Comment on above: Performed By: #### T ROPI, CDP, BMP #### [facility] [address] [place] [address] Nitroglycerin Distributor: Peter Baer MD Performed By: #### C DP, TROPI, BMP #### [facility] [address] [place] [address] Nitroglycerin Distributor: Peter Baer MD Glucose [Mass/Vol] 78 mg/dL Normal 70-99 [facility] Comment on above: Performed By: #### T ROPI, CDP, BMP #### [facility] [address] [place] [address] Nitroglycerin Distributor: Peter Baer MD Performed By: #### C DP, TROPI, BMP #### [facility] [address] [place] [address] Nitroglycerin Distributor: Peter Baer MD Potassium [Moles/Vol] 3.6 mmol/L Low 3.7-5.3 [facility] Comment on above: Performed By: #### T ROPI, CDP, BMP #### [facility] [address] [place] [address] Nitroglycerin Distributor: Peter Baer MD Performed By: #### C DP, TROPI, BMP #### [facility] [address] [place] [address] Nitroglycerin Distributor: Peter Baer MD Sodium [Moles/Vol] 140 mmol/L Normal 135-144 [facility] Comment on above: Performed By: #### T ROPRicha, CDP, BMP #### [facility] [address] [place] [address] Nitroglycerin Distributor: Peter Baer MD Performed By: #### C DP, TROPI, BMP #### [facility] [address] [place] [address] Nitroglycerin Distributor: Peter Baer MD Urea nitrogen [Mass/Vol] 10 mg/dL Normal 8-23 [facility] Comment on above: Performed By: #### T ROPI, CDP, BMP #### [facility] [address] [place] [address] Nitroglycerin Distributor: Peter Baer MD Performed By: #### C DP, TROPI, BMP #### [facility] [address] [place] [address] Nitroglycerin Distributor: Peter Baer MD CBC with Auto Differentialon 04-25-2022 Absolute Eos # 0.36 [place] [facility] Absolute Immature Granulocyte 0.06 [facility] Absolute Lymph # 2.57 [facility] Absolute Boyd # 0.[address] [facility] RS [facility] Basophils (Bld) [#/Vol] 0.06 10*3/uL [facility] Basophils/100 WBC (Bld) 1 % 0 - 2 % [facility] Eosinophils/100 WBC (Bld) 3 % 1 - 4 % [facility] Hematocrit (Bld) [Volume fraction] 40.7 % 36.3 - 47.1 % [facility] Hemoglobin (Bld) [Mass/Vol] 12.4 g/dL 11.9 - 15.1 g/dL [facility] Immature granulocytes/100 WBC (Bld) 1 % High 0 [facility] Interpretation and review of laboratory results Abnormal [place] Lymphocytes/100 WBC (Bld) 19 % Low 24 - 43 % [facility] MCH (RBC) [Entitic mass] 28.7 pg 25. 2 - 33.5 pg [facility] MCHC (RBC) [Mass/Vol] 30.5 g/dL 28.4 - 34.8 g/dL [facility] MCV (RBC) [Entitic vol] 94.2 fL 82.6 - 102.9 fL [facility] Monocytes/100 WBC (Bld) 6 % 3 - 12 % [facility] NRBC Automated 0.0 0.0 per 100 WBC [facility] Platelet distribution width (Bld) [Ratio] 18.5 % High 11.8 - 14.4 % [facility] Platelet mean volume (Bld) [Entitic vol] 10.2 fL 8.1 - 13.5 fL [facility] Platelets (Bld) [#/Vol] 277 10*3/uL [facility] RBC (Bld) [#/Vol] 4.32 10*6/uL 3.95 - 5.11 m/uL [facility] RBC (Bld) [#/Vol] ANISOCYTOSIS PRESENT [facility] Segmented neutrophils/100 WBC (Bld) 70 % High 36 - 65 % [facility] Segs Absolute 9.37 High [facility] WBC (Bld) [#/Vol] 13.2 10*3/uL High [facility] CBC with Diffon 04-25-2022 Abs. Basophil 0.06 k/uL Normal 0.00-0.20 [facility] Comment on above: Performed By: #### T TYREL TREVIÑO, BMP #### [facility] [address] [place] [address] Nitroglycerin Distributor: Peter Baer MD Performed By: #### C NEAL GRIFFIN BMP #### [facility] [address] [place] [address] Nitroglycerin Distributor: Peter Baer MD Abs.Imm.Granulocyte 0.06 k/uL Normal 0.00-0.30 [facility] Comment on above: Performed By: #### TYREL MONTEZ, BMP #### [facility] [address] [place] [address] Nitroglycerin Distributor: Peter Baer MD Performed By: #### C NEAL GRIFFIN BMP #### [facility] [address] [place] [address] Nitroglycerin Distributor: Peter Baer MD Abs.Neutrophil (Seg) 9.37 k/uL High 1.50-8.10 [facility] Comment on above: Performed By: #### T TYREL TREVIÑO, BMP #### [facility] [address] [place] [address] Nitroglycerin Distributor: Peter Baer MD Performed By: #### C NEAL GRIFFIN BMP #### [facility] [address] [place] [address] Nitroglycerin Distributor: Peter Baer MD Basophils/100 WBC (Bld) 1 % Normal 0-2 [facility] Comment on above: Performed By: #### TYREL MONTEZ, BMP #### [address] [address] Nitroglycerin Distributor: Peter Baer MD Performed By: #### C NEAL GRIFFIN BMP #### [address] [address] Nitroglycerin Distributor: Peter Baer MD Eosinophils (Bld) [#/Vol] 0.36 10*3/uL Normal 0.00-0.4 4 [facility] Comment on above: Performed By: #### T TYREL TREVIÑO, BMP #### [facility] [address] [place] [address] Nitroglycerin Distributor: Peter Baer MD Performed By: #### C NEAL GRIFFIN, BMP #### [facility] [address] [place] [address] Nitroglycerin Distributor: Peter Baer MD Eosinophils/100 WBC (Bld) 3 % Normal 1-4 [facility] Comment on above: Performed By: #### T TYREL TREVIÑO, BMP #### [facility] [address] [place] [address] Nitroglycerin Distributor: Peter Baer MD Performed By: #### C NEAL GRIFFIN, BMP #### [facility] [address] [place] [address] Nitroglycerin Distributor: Peter Baer MD Erythrocyte distribution width (RBC) [Ratio] 18.5 % High 11.8-14.4 [facility] Comment on above: Performed By: #### T TYREL TREVIÑO, BMP #### [facility] [address] [place] [address] Nitroglycerin Distributor: Peter Baer MD Performed By: #### C ANIKA GRIFFINI, BMP #### [facility] [address] [place] [address] Nitroglycerin Distributor: Peter Baer MD Hematocrit (Bld) [Volume fraction] 40.7 % Normal 36.3-47.1 [facility] Comment on above: Performed By: #### T HUDSON CDP, BMP #### [facility] [address] [place] [address] Nitroglycerin Distributor: Peter Baer MD Performed By: #### C DP TROPI, BMP #### [address] [address] Nitroglycerin Distributor: Peter Baer MD Hemoglobin (Bld) [Mass/Vol] 12.4 g/dL Normal 11.9-15.1 [facility] Comment on above: Performed By: #### T HUDSON CDP, BMP #### [facility] [address] [place] [address] Nitroglycerin Distributor: Peter Baer MD Performed By: #### C DP TROPI, BMP #### [facility] [address] [place] [address] Nitroglycerin Distributor: Peter Baer MD Immature granulocytes/100 WBC (Bld) 1 % High 0 [facility] Comment on above: Performed By: #### T HUDSON CDP, BMP #### [facility] [address] [place] [address] Nitroglycerin Distributor: Peter Baer MD Performed By: #### C DP TROPI, BMP #### [facility] [address] [place] [address] Nitroglycerin Distributor: Peter Baer MD Lymphocytes (Bld) [#/Vol] 2.57 10*3/uL Normal 1.10-3.7 0 [facility] Comment on above: Performed By: #### T ROPRicha, CDP, BMP #### [facility] [address] [place] [address] Nitroglycerin Distributor: Peter Baer MD Performed By: #### C DP, TROPI, BMP #### [facility] [address] [place] [address] Nitroglycerin Distributor: Peter Baer MD Lymphocytes/100 WBC (Bld) 19 % Low 24-43 [facility] Comment on above: Performed By: #### T TYREL TREVIÑO, BMP #### [facility] [address] [place] [address] Nitroglycerin Distributor: Peter Baer MD Performed By: #### C NEAL GRIFFIN, BMP #### [facility] [address] [place] [address] Nitroglycerin Distributor: Peter Baer MD MCH (RBC) [Entitic mass] 28.7 pg Normal 25.2-33.5 [facility] Comment on above: Performed By: #### T TYREL TREVIÑO, BMP #### [address] [address] Nitroglycerin Distributor: Peter Baer MD Performed By: #### C NEAL GRIFFIN, BMP #### [facility] [address] [place] [address] Nitroglycerin Distributor: Peter Baer MD MCHC (RBC) [Mass/Vol] 30.5 g/dL Normal 28.4-34.8 [facility] Comment on above: Performed By: #### T TYREL TREVIÑO, BMP #### [address] [address] Nitroglycerin Distributor: Peter Baer MD Performed By: #### C ELIAS TROPI, BMP #### [facility] [address] [place] [address] Nitroglycerin Distributor: Peter Baer MD MCV (RBC) [Entitic vol] 94.2 fL Normal 82.6-102.9 M [facility] Comment on above: Performed By: #### T TYREL TREVIÑO, BMP #### [facility] [address] [place] [address] Nitroglycerin Distributor: Peter Baer MD Performed By: #### C DP, TROPI, BMP #### [address] [address] Nitroglycerin Distributor: Peter Baer MD Monocytes (Bld) [#/Vol] 0.81 10*3/uL Normal 0.10-1.20 [facility] Comment on above: Performed By: #### T ROPI, CDP, BMP #### [address] [address] Nitroglycerin Distributor: Peter Baer MD Performed By: #### C DP, TROPI, BMP #### [address] [address] Nitroglycerin Distributor: Peter Baer MD Monocytes/100 WBC (Bld) 6 % Normal 3-12 [facility] Comment on above: Performed By: #### T ROPI, CDP, BMP #### [address] [address] Nitroglycerin Distributor: Peter Baer MD Performed By: #### C DP, TROPI, BMP #### [address] [address] Nitroglycerin Distributor: Peter Baer MD Neutrophil (Seg) 70 % High 36-65 [facility] Comment on above: Performed By: #### T ROPI, CDP, BMP #### [address] [address] Nitroglycerin Distributor: Peter Baer MD Performed By: #### C DP, TROPI, BMP #### [address] [address] Nitroglycerin Distributor: Peter Baer MD NRBC Automated 0.0 per 100 WBC Normal 0.0 [facility] Comment on above: Performed By: #### T ROPI, CDP, BMP #### [facility] [address] [place] [address] Nitroglycerin Distributor: Peter Baer MD Performed By: #### C NEAL GRIFFIN, BMP #### [address] [address] Nitroglycerin Distributor: Peter Baer MD Platelet mean volume (Bld) [Entitic vol] 10.2 fL Normal 8.1-13.5 [facility] Comment on above: Performed By: #### T TYREL TREVIÑO, BMP #### [address] [address] Nitroglycerin Distributor: Peter Baer MD Performed By: #### C NEAL GRIFFIN, BMP #### [address] [address] Nitroglycerin Distributor: Peter Baer MD Platelets (Bld) [#/Vol] 277 10*3/uL Normal 138-453 [facility] Comment on above: Performed By: #### T TYREL TREVIÑO, BMP #### [address] [address] Nitroglycerin Distributor: Peter Baer MD Performed By: #### C NEAL GRIFFIN, BMP #### [facility] [address] [place] [address] Nitroglycerin Distributor: Peter Baer MD RBC (Bld) [#/Vol] 4.32 10*6/uL Normal 3.95-5.11 [facility] Comment on above: Performed By: #### T TYREL TREVIÑO, BMP #### [facility] [address] [place] [address] Nitroglycerin Distributor: Peter Baer MD Performed By: #### C NEAL GRIFFIN, BMP #### [facility] [address] [place] [address] Nitroglycerin Distributor: Peter Baer MD RBC morphology finding Nom (Bld) ANISOCYTOSIS PRESENT Normal [facility] Comment on above: Performed By: #### T ROPI, CDP, BMP #### [facility] [address] [place] [address] Nitroglycerin Distributor: Peter Baer MD Performed By: #### C NEAL GRIFFIN BMP #### [facility] [address] [place] [address] Nitroglycerin Distributor: Peter Baer MD WBC (Bld) [#/Vol] 13.2 10*3/uL High 3.5-11.3 [facility] Comment on above: Performed By: #### T TYREL TREVIÑO BMP #### [facility] [address] [place] [address] Nitroglycerin Distributor: Peter Baer MD Performed By: #### C NEAL GRIFFIN BMP #### [facility] [address] [place] [address] Nitroglycerin Distributor: Peter Baer MD Microscopic Urinalysison - [facility] Casts UA 10 TO 20 HYALINE Reference range defined for non-centrifuged specimen. [facility] Epithelial Cells UA 2 TO 5 [facility] RBC, UA 0 TO 2 [facility] Comment on above: Reference range defi azalia for non-centrifuged specimen. WBC, UA 2 TO 5 [facility] Urinalysison 04-25-2022 Bilirubin Urine Negative NEGATIVE [facility] Color, UA Yellow Yellow [facility] Glucose, Ur Negative NEGATIVE [facility] Interpretation and review of laboratory results Abnormal [facility] Ketones Ql (U) TRACE Abnormal NEGATIVE [facility] Leukocyte esterase Test strip Ql (U) Negative NEGATIVE [facility] Nitrite, Urine Negative NEGATIVE [facility] pH, UA 5.5 [facility] Protein, UA TRACE Abnormal NEGATIVE [facility] Specific Mcmillan, UA 1.024 [facility] Turbidity UA Clear Clear [facility] Urine Hgb Negative NEGATIVE [facility] Urobilinogen, Urine Normal Normal [facility] Urinalysis, Routineon 2021 Bilirubin, SemiQt,Ur Negative Normal NEG [facility] Comment on above: Performed By: #### C DP #### [address] [address] Nitroglycerin Distributor: Peter Baer MD Performed By: #### C OVRB #### [address] [address] Nitroglycerin Distributor: Peter Baer MD Blood, Urine Negative Normal NEG [facility] Comment on above: Performed By: #### C DP #### [address] [address] Nitroglycerin Distributor: Peter Baer MD Performed By: #### C OVRB #### [address] [address] Nitroglycerin Distributor: Peter Baer MD Clarity (U) Clear Normal CLEAR [facility] Comment on above: Performed By: #### C DP #### [address] [address] Nitroglycerin Distributor: ePter Baer MD Performed By: #### C OVRB #### [address] [address] Nitroglycerin Distributor: Peter Baer MD Color (U) Yellow Normal YEL [facility] Comment on above: Performed By: #### C DP #### [address] [address] Nitroglycerin Distributor: Peter Baer MD Performed By: #### C OVRB #### [address] [address] Nitroglycerin Distributor: Peter Baer MD Glucose Ql (U) Negative Normal NEG [facility] Comment on above: Performed By: #### C DP #### [address] [place] [address] Nitroglycerin Distributor: Peter Baer MD Performed By: #### C OVRB #### [address] [address] Nitroglycerin Distributor: Peter Baer MD Ketones Ql (U) TRACE Abnormal NEG [facility] Comment on above: Performed By: #### C DP #### [address] [address] Nitroglycerin Distributor: Peter Baer MD Performed By: #### C OVRB #### [address] [address] Nitroglycerin Distributor: Peter Baer MD Leukocyte esterase Test strip Ql (U) Negative Normal NEG [facility] Comment on above: Performed By: #### C DP #### [address] [address] Nitroglycerin Distributor: Peter Baer MD Performed By: #### C OVRB #### [address] [address] Nitroglycerin Distributor: Peter Baer MD Nitrite,Ur Negative Normal NEG [facility] Comment on above: Performed By: #### C DP #### [address] [address] Nitroglycerin Distributor: Peter Baer MD Performed By: #### C OVRB #### [address] [address] Nitroglycerin Distributor: Peter Baer MD PH,Ur 5.5 Normal 5.0-8.0 [facility] Comment on above: Performed By: #### C DP #### [address] [address] Nitroglycerin Distributor: Peter Baer MD Performed By: #### C OVRB #### [address] [address] Nitroglycerin Distributor: Peter Baer MD Protein Ql (U) TRACE Abnormal NEG [facility] Comment on above: Performed By: #### C DP #### [address] [address] Nitroglycerin Distributor: Peter Baer MD Performed By: #### C OVRB #### [address] [address] Nitroglycerin Distributor: Peter Baer MD Spec. Mcmillan,Ur 1.024 Normal 1.005-1.03 0 [facility] Comment on above: Performed By: #### C DP #### [address] [address] Nitroglycerin Distributor: Peter Baer MD Performed By: #### C OVRB #### [address] [address] Nitroglycerin Distributor: Peter Baer MD Urobilinogen,Ur Normal Normal NORM [facility] Comment on above: Performed By: #### C DP #### [address] [address] Nitroglycerin Distributor: Peter Baer MD Performed By: #### C OVRB #### [address] [address] Nitroglycerin Distributor: Peter Baer MD Urinalysis,Microon 2 ----- Normal [facility] Comment on above: Performed By: #### C DP #### [address] [address] Nitroglycerin Distributor: Peter Baer MD Performed By: #### C OVRB #### [address] [address] Nitroglycerin Distributor: Peter Baer MD Casts 10 TO 20 HYALINE Normal 0-8 [facility] Comment on above: Result Comment: Refe rence range defined for non-centrifuged specimen. Performed By: #### C DP #### [address] [address] Nitroglycerin Distributor: Peter Baer MD Performed By: #### C OVRB #### [address] [address] Nitroglycerin Distributor: Peter Baer MD Epithelial cells LM Ql (Urine sed) 2 TO 5 Normal 0-5 [facility] Comment on above: Performed By: #### C DP #### [address] [address] Nitroglycerin Distributor: Peter Baer MD Performed By: #### C OVRB #### [address] [address] Nitroglycerin Distributor: Peter Baer MD Urine RBC's 0 TO 2 Normal 0-4 [facility] Comment on above: Result Comment: Refe rence range defined for non-centrifuged specimen. Performed By: #### C DP #### [address] [address] Nitroglycerin Distributor: Peter Baer MD Performed By: #### C OVRB #### [address] [address] Nitroglycerin Distributor: Peter Baer MD Urine WBC's 2 TO 5 Normal 0-5 [facility] Comment on above: Performed By: #### C DP #### [address] [address] Nitroglycerin Distributor: Peter Baer MD Performed By: #### C OVRB #### [address] [address] Nitroglycerin Distributor: Peter Baer MD XR CHEST (2 VW)on 04-25-2022 XR CHEST (2 VW) EXAMINATION: TWO XRAY VIEWS OF THE CHEST 04/25/2022 6:50 pm COMPARISON: 03/26/2018 HISTORY: ORDERING SYSTEM PROVIDED HISTORY: Pain TECHNOLOGIST PROVIDED HISTORY: Pain FINDINGS: The lungs are mildly hyperinflated without acute focal process. There is no effusion or pneumothorax. The cardiomediastinal silhouette is stable. The osseous structures are stable. IMPRESSION: No acute process. Interpreted by: Jomar Blandon MD Signed by: Jomar Blandon MD 04/25/22 Final result Normal [facility] No acute process. [facility] EXAMINATION: TWO XRAY VIEWS OF THE CHEST 04/25/2022 6:50 pm COMPARISON: 03/26/2018 HISTORY: ORDERING SYSTEM PROVIDED HISTORY: Pain TECHNOLOGIST PROVIDED HISTORY: Pain FINDINGS: The lungs are mildly hyperinflated without acute focal process. There is no effusion or pneumothorax. The cardiomediastinal silhouette is stable. The osseous structures are stable. [facility] Jomar Blandon MD - 04/25/2022 EXAMINATION: TWO XRAY VIEWS OF THE CHEST 04/25/2022 6:50 pm COMPARISON: 03/26/2018 HISTORY: ORDERING SYSTEM PROVIDED HISTORY: Pain TECHNOLOGIST PROVIDED HISTORY: Pain FINDINGS: The lungs are mildly hyperinflated without acute focal process. There is no effusion or pneumothorax. The cardiomediastinal silhouette is stable. The osseous structures are stable. IMPRESSION: No acute process. [employer] Phone: Radiology Study observation (narrative) [employer] Phone: XR CHEST (2 VW)Ordered By: Skye Blandon on 04-25-2022 [employer] Phone: [facility] 04-13-2021 [facility] HNO ID: [id number] Author: Rajendra Arias Service: Radiology Author Type: Surg Rn Type: Allied Health Filed: 04/13/2021 12:53 PM Note Text: Radiology Service Progress Note DATE OF SERVICE: April 13, 2021 TIME: 12:52 PM PATIENT IDENTITY VERIFICATION COMPLETED USING TWO (2) STANDARD IDENTIFIERS: Name and Date of confirmed by patient verbally. FALL SCREENING: Has the patient had 2 falls in the last year or 1 fall with injury or currently using an Ambulatory Assistive Device (Walker, Cane, Wheelchair, Crutches, etc.)? No PATIENT GENDER DATA: Female. status: : No status: NO. PATIENT RELEVANT IMPLANT DATA REVIEWED: Yes ALLERGIES: Reviewed and unchanged CONTRAST ALLERGY: NO. EXAM: MRI - CONTRAST TYPE: GROUP II PERIPHERAL IV DATA: Ambulatory: A peripheral IV was started in the Left antecubital site with a Angio cath/Butterfly: 24 gauge. RADIOLOGY DEPARTMENT: MR; Exam(s) Completed: Body: Liver (routine) SIGNATURE: Rajendra FLORES PATIENT NAME: Honey Montes DATE: April 13, 2021 TIME: 12:52 PM [facility] MRI LIVER WO/W IVCONon 04-13 MRI LIVER WO/W IVCON * * *Final Report* * * DATE OF EXAM: Apr 13 2021 12:55PM [facility] 0727 - MRI LIVER WO/W IVCON / PROCEDURE REASON: multiple diagnoses * * * * Physician Interpretation * * * * MRI OF THE ABDOMEN WITHOUT AND WITH CONTRAST: 04/13/2021 CLINICAL HISTORY: Liver lesion evaluation, history of neuroendocrine tumor COMPARISON: CT 12/22/2020. TECHNIQUE: Siemens 1.5 T Avanto scanner. Using the torso phased array coil, axial STIR and T1 weighted in- and [id number] images were obtained. Then, using a 3-D GRE T1 weighted sequence, dynamic images were obtained before, during and after the administration of intravenous contrast. Subsequently, axial and coronal HASTE, axial diffusion weighted and axial T2 weighted images were obtained. Flow sensitive imaging of the portal vein was performed. Finally, a delayed post-contrast phase was obtained using the same 3D GRE sequence. Contrast: IV: 10 ml of Dotarem Oral Contrast: None RESULT: Liver: The liver is normal in contour and enhances homogeneously. No significant hepatic fat deposition. There is a hepatic cyst within left hepatic lobe measuring 0.9 cm. No enhancing liver lesion. There is no thrombus in the portal venous system (splenic vein, main portal vein, left and right anterior and right posterior portal vein branches). The spleen is unremarkable. Pancreaticobiliary: The common bile duct measures up to 0.8 cm tapering at the level of the ampulla likely secondary to reservoir effect status post cholecystectomy. Again mild intrahepatic biliary ductal dilatation. The patient is status post cholecystectomy. The pancreas has normal precontrast signal, enhances normally and is without focal lesions. The visualized portions of the pancreatic duct are normal. The adrenals are normal. Kidneys: The visualized portions of the kidneys enhance symmetrically. There is no hydroureteronephrosi s. There is no focal enhancing renal lesion. Other: There is no ascites. There are no abnormal fluid collections. Left mesenteric lymph nodes measuring up to 0.8 cm short axis (series 23 image 82). Large periampullary duodenal diverticulum. IMPRESSION: No evidence for metastatic disease within the abdomen. Left mesenteric lymph node measuring up to 0.8 cm short axis. Central biliary ductal dilatation with the common bile duct measuring up to 0.8 cm tapering at the level of the ampulla likely secondary to reservoir effect status post cholecystectomy versus ampullary stenosis. Recommend clinical correlation with laboratory values. Digital Campaign Manager: OFELIA Transcribe Date/Time: Apr 13 2021 1:15P Dictated by : LONNY GATICA MD This examination was interpreted and the report reviewed and electronically signed by: LONNY GATICA MD on Apr 13 2021 1:34PM EST [id number] CN Normal [facility] HEALTHon 11-26-2020 [facility] HNO ID: [id number] Author: OTIS Glover (Ct) Service: Radiology Author Type: Surg Rn Type: Allied Health Filed: 11/26/2020 1:55 PM Note Text: Radiology Service Progress Note PATIENT NAME: Honey Montes DATE OF SERVICE: November 26, 2020 TIME: 1:55 PM PATIENT IDENTITY VERIFICATION COMPLETED USING TWO (2) IDENTIFIERS: Name and Date of confirmed by patient verbally. FALL SCREENING: Has the patient had 2 falls in the last year or 1 fall with injury or currently using an Ambulatory Assistive Device (Walker, Cane, Wheelchair, Crutches, etc.)? No PATIENT GENDER DATA: Female. status: : No status: NO. 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 pt can't raise arms- torn rotator cuffs TECHNIQUE: CT of the abdomen and pelvis was performed using standard technique, scanning from just above the dome of the diaphragm to the symphysis pubis. MQ: CTAP_3 Contrast: IV: 116 ml of Omnipaque 350 CT Radiation dose: Integrated Dose-length product (DLP) for this visit = 395 mGy*cm. CT Dose Reduction Employed: Automated exposure control (AEC) COMPARISON: 09/11/2020 RESULT: Liver: 9 mm focus of low-attenuation in the inferior aspect of segment III (2:49) not discretely seen on the prior examination, and too small to characterize benign cyst in segment 2 (2:20) is unchanged. Biliary: No bile duct dilation. Spleen: No mass. No splenomegaly. Pancreas: No mass or duct dilation. Adrenals: No mass. Kidneys: No mass, calculus or hydronephrosis. GI tract: Postsurgical changes of prior distal gastrectomy with gastrojejunal anastomosis. Additionally, there is a duodenojejunal anastomosis in the left upper quadrant and jejunojejunal anastomosis in the left lower quadrant. No bowel dilation or wall thickening Lymph nodes: 9 mm left periaortic lymph node (2:38) Mesentery/Peritoneum : No ascites or mass. Retroperitoneum: No mass. Vasculature: The celiac axis and SMA are patent. The portal vein and branches, splenic vein, SMV, and hepatic veins are patent. Arterial atherosclerotic disease without aneurysm. Pelvis: No mass, ascites or fluid collection. The bladder is unremarkable. Bones/Soft Tissues: Degenerative changes. Lower thorax: A chest CT performed will be reported separately. Caramel Cutter Hand (topogram) images: No additional findings. IMPRESSION: New 9 mm low-attenuation lesion in segment III when compared to 09/11/2020. Consider further characterization with MR or attention on follow-up. Digital Campaign Manager: OFELIA Transcribe Date/Time: Nov 27 2020 8:01A Dictated by : ARACELI JUDGE MD This examination was interpreted and the report reviewed and electronically signed by: ARACELI JUDGE MD on Nov 27 2020 8:16AM EST [id number] CN Normal [facility] NURSING PROGon 11-26-2020 NURSING PROG HNO ID: [id number] Author: Amarilys (Rn) KVNG Sarabia Service: Nursing Author Type: Registered Nurse Type: Nursing Progress Note Filed: 11/26/2020 1:39 PM Note Text: Radiology Service Progress Note DATE OF SERVICE: November 26, 2020 TIME: 1:36 PM PATIENT WEIGHT: 116 LBS PATIENT IDENTITY VERIFICATION COMPLETED USING TWO (2) STANDARD IDENTIFIERS: Name and Date of confirmed by patient verbally and Name and Date of confirmed by identification band. FALL SCREENING: Has the patient had 2 falls in the last year or 1 fall with injury or currently using an Ambulatory Assistive Device (Walker, Cane, Wheelchair, Crutches, etc.)? No PATIENT GENDER DATA: Female. status: : No status: NO. ALLERGIES: Reviewed and unchanged CONTRAST ALLERGY: No EXAM: CT -CONTRAST INDUCED NEPHROPATHY RISK FACTORS: Congestive Heart Failure (CHF) CREATININE: Creatinine Date Value Ref Range Status 09/13/2020 0.61 (L) 0.70 - 1.40 mg/dL Final 09/12/2020 0.51 (L) 0.70 - 1.40 mg/dL Final 09/11/2020 0.65 (L) 0.70 - 1.40 mg/dL Final Creatinine (POCT) Date Value Ref Range Status 11/26/2020 0.50 (A) 0.7 - 1.4 mg/dL Final eGFR-All Other Races Date Value Ref Range Status 09/13/2020 >60 >60 . Final eGFR-All Other Races (POCT) Date Value Ref Range Status 11/26/2020 >60 mL/min/1.73 m2 Final eGFR- Date Value Ref Range Status 09/13/2020 >60 >60 Final eGFR- (POCT) Date Value Ref Range Status 11/26/2020 >60 mL/min/1.73 m2 Final P.O.C.T. RESULTS: POC done: Yes, See Lab Tab November 26, 2020 TREATMENT: N/A IV SITE: Ambulatory: A peripheral IV was started in the Right antecubital site with a Angio cath: 20 gauge. IV SITE APPEARANCE: Clean,Dry and Intact, started by Ana FERNANDEZ SIGNATURE: Amarilys Sarabia RN PATIENT NAME: Honey Montes DATE: November 26, 2020 TIME: 1:36 PM Normal [facility] Basic Metabolic Panlon 09-13 Anion gap [Moles/Vol] 10 mmol/L Normal 9-[address] [facility] Comment on above: Performed By: #### P HOS, MG1, CBCDIF, BMP ####[place] [phone] Calcium [Mass/Vol] 8.6 mg/dL Normal 8.5-10.5 [facility] Comment on above: Performed By: #### P HOS, MG1, CBCDIF, BMP ####[place] [phone] Chloride [Moles/Vol] 100 mmol/L Normal 98-110 [facility] Comment on above: Result Comment: Revi ewed Performed By: #### P HOS, MG1, CBCDIF, BMP ####[place] [phone] CO2 [Moles/Vol] 27 mmol/L Normal 23-32 [facility] Comment on above: Performed By: #### P HOS, MG1, CBCDIF, BMP ####[place] [phone] Creatinine [Mass/Vol] 0.61 mg/dL Low 0.70-1.[address] [facility] Comment on above: Performed By: #### P HOS, MG1, CBCDIF, BMP ####[place] [phone] eGFR- Amer. >60 Normal >60 [facility] Comment on above: Performed By: #### P HOS, MG1, CBCDIF, BMP ####[place] [phone] eGFR-All Other Races >60 Normal >60 [facility] Comment on above: Performed By: #### P HOS, MG1, CBCDIF, BMP ####[place] [phone] Glucose [Mass/Vol] 258 mg/dL High 65-100 [facility] Comment on above: Performed By: #### P HOS, MG1, CBCDIF, BMP ####[place] [phone] Potassium [Moles/Vol] 4.3 mmol/L Normal 3.5-5.[address] [facility] Comment on above: Performed By: #### P HOS, MG1, CBCDIF, BMP ####[place] [phone] Sodium [Moles/Vol] 137 mmol/L Normal 132-148 [facility] Comment on above: Performed By: #### P HOS, MG1, CBCDIF, BMP ####[place] [phone] Urea nitrogen [Mass/Vol] 5 mg/dL Low 8-25 [facility] Comment on above: Performed By: #### P HOS, MG1, CBCDIF, BMP ####[place] [phone] CBC and Differentialon 09-13 Abs Baso 0.06 k/uL Normal <0.11 [facility] Comment on above: Performed By: #### P HOS, MG1, CBCDIF, BMP ####[place] [phone] Abs Boyd 0.47 k/uL Normal <0.87 [facility] Comment on above: Performed By: #### P HOS, MG1, CBCDIF, BMP ####[place] [phone] Abs Neut 5.31 k/uL Normal 1.45-7.50 [facility] Comment on above: Performed By: #### P HOS, MG1, CBCDIF, BMP ####[place] [address] Absolute nRBC <0.01 Normal <0.01 [facility] Comment on above: Performed By: #### P HOS, MG1, CBCDIF, BMP ####[place] [address] Basophils/100 WBC (Bld) 0.7 % Normal [facility] Comment on above: Performed By: #### P HOS, MG1, CBCDIF, BMP ####[place] [address] DTYPE Auto Diff Normal [facility] Comment on above: Performed By: #### P HOS, MG1, CBCDIF, BMP ####[place] [address] Eosinophils (Bld) [#/Vol] 0.20 10*3/uL Normal <0.46 [facility] Comment on above: Performed By: #### P HOS, MG1, CBCDIF, BMP ####[place] [address] Eosinophils/100 WBC (Bld) 2.3 % Normal [facility] Comment on above: Performed By: #### P HOS, MG1, CBCDIF, BMP ####[place] [address] Erythrocyte distribution width (RBC) [Ratio] 14.6 % Normal 11.5-15.0 [facility] Comment on above: Performed By: #### P HOS, MG1, CBCDIF, BMP ####[place] [address] Hematocrit (Bld) [Volume fraction] 34.8 % Low 36.0-46.0 [facility] Comment on above: Performed By: #### P HOS, MG1, CBCDIF, BMP ####[place] [phone] Hemoglobin (Bld) [Mass/Vol] 11.3 g/dL Low 11.5-15.5 [facility] Comment on above: Performed By: #### P HOS, MG1, CBCDIF, BMP ####[place] [phone] Lymphocytes (Bld) [#/Vol] 2.68 10*3/uL Normal 1.00-4.0 0 [facility] Comment on above: Performed By: #### P HOS, MG1, CBCDIF, BMP ####[place] [phone] Lymphocytes/100 WBC (Bld) 30.7 % Normal [facility] Comment on above: Performed By: #### P HOS, MG1, CBCDIF, BMP ####[place] [phone] MCH 29.9 pG Normal 26.0-34.0 [facility] Comment on above: Performed By: #### P HOS, MG1, CBCDIF, BMP ####[place] [phone] MCHC (RBC) [Mass/Vol] 32.5 g/dL Normal 30.5-36.[address] [facility] Comment on above: Performed By: #### P HOS, MG1, CBCDIF, BMP ####[place] [phone] MCV (RBC) [Entitic vol] 92.1 fL Normal 80.0-100.0 [facility] Comment on above: Performed By: #### P HOS, MG1, CBCDIF, BMP ####[phone] Monocytes/100 WBC (Bld) 5.4 % Normal [facility] Comment on above: Performed By: #### P HOS, MG1, CBCDIF, BMP ####[place] [phone] Neutrophils/100 WBC (Bld) 60.9 % Normal [facility] Comment on above: Performed By: #### P HOS, MG1, CBCDIF, BMP ####[place] [phone] NRBCs 0.0 /100 WBC Normal 0 [facility] Comment on above: Performed By: #### P HOS, MG1, CBCDIF, BMP ####[place] [phone] Platelet mean volume (Bld) [Entitic vol] 8.9 fL Low 9.0-12.7 [facility] Comment on above: Performed By: #### P HOS, MG1, CBCDIF, BMP ####[place] [phone] Platelets (Bld) [#/Vol] 550 10*3/uL High 150-400 [facility] Comment on above: Performed By: #### P HOS, MG1, CBCDIF, BMP ####[place] [phone] RBC (Bld) [#/Vol] 3.78 10*6/uL Low 3.90-5.20 [facility] Comment on above: Performed By: #### P HOS, MG1, CBCDIF, BMP ####[place] [phone] WBC (Bld) [#/Vol] 8.72 10*3/uL Normal 3.70-11.00 [facility] Comment on above: Performed By: #### P HOS, MG1, CBCDIF, BMP ####[address] [phone] CNDSon 09-13-2020 CNDS HNO ID: [id number] Author: Mahamed Perez MD Service: Critical Care Author Type: Resident Type: Discharge Summary Filed: 09/13/2020 11:36 AM Note Text: DISCHARGE SUMMARY PATIENT NAME: Honey Montes ADMISSION DATE: 09/11/2020 DISCHARGE DATE: 09/13/2020 ATTENDING PHYSICIAN: Jr Sniha Code Status: Not on file Highest Readmission Risk Score: 12 The 30 day readmissions risk score is derived from an internally validated risk model which evaluates patient level characteristics, utilization history, medication orders and lab results up until the day of discharge. Patients with a score of 40 or above are considered highest risk for readmission. Specific patient level drivers will be listed at the bottom of the summary. CONSULTING TEAMS DURING HOSPITALIZATION: None Treatment Team: Attending Provider: Jr Sinha REASON FOR HOSPITALIZATION: Abdominal pain DIAGNOSIS: Active Problems: Abdominal pain OPERATIONS DURING HOSPITALIZATION: None PROCEDURES DURING HOSPITALIZATION: IV access HOSPITAL COURSE: You were admitted to the regular nursing floor and your pain was controlled. CT images were reviewed that showed no concerning acute processes. We followed you clinically with frequent abdominal exams. Your pain improved while you were in the hospital. On hospital day 2, your pain was controlled, you tolerating a diet, having bowel function, ambulating, and voiding independently. You were discharged home with follow up scheduled for later this week. Transitions of Care Critical Issues: Clinic appointment LABS AND PROCEDURES PENDING AT DISCHARGE: No pending results. PATIENT CONDITION AT DISCHARGE: Stable DISCHARGE DISPOSITION: Home/Self Care INFORMATION PROVIDED TO PATIENT: Discharge instructions ALLERGIES No Known Allergies DISCHARGE MEDICATION: Current Discharge Medication List START taking these medications oxyCODONE IR (ROXICODONE) 5 mg Take 5 mg by mouth every 8 hours as needed for Pain (for pain not controlled with tylenol and gabapentin). Qty: 12 tablet Refills: 0 Associated Diagnoses:History of exploratory laparotomy amoxicillin-clavulan ic acid (AUGMENTIN) 875 mg Take 875 mg by mouth every 12 hours. Qty: 14 tablet Refills: 0 CONTINUE these medications which have NOT CHANGED acetaminophen (TYLENOL) 650 mg Take 650 mg by mouth every 6 hours as needed for Pain. clopidogrel (PLAVIX) 75 mg Take 75 mg by mouth once daily. gabapentin (NEURONTIN) 600 mg Take 600 mg by mouth three times daily. metformin HCl (METFORMIN ORAL) 500 mg Take 500 mg by mouth twice daily. metoprolol tartrate (short acting) (LOPRESSOR) 25 mg Take 25 mg by mouth twice daily. atorvastatin (LIPITOR) 80 mg Take 80 mg by mouth once daily. potassium chloride (K-TAB) 10 mEq Take 10 mEq by mouth once daily. zolpidem (AMBIEN) 10 mg Take 10 mg by mouth at bedtime as needed. citalopram (CeleXA) 20 mg Take 20 mg by mouth once daily. Magnesium Oxide 400 mg Take 400 mg by mouth once daily. tamoxifen (NOLVADEX) 20 mg Take 20 mg by mouth once daily. omeprazole (PriLOSEC) 40 mg Take 40 mg by mouth daily before breakfast. Qty: 90 capsule Refills: 3 STOP taking these medications ALPRAZolam (XANAX) 1 mg Comments: Reason for Stopping: FUTURE APPOINTMENTS: Future Appointments Date Time Provider Department Center 09/17/2020 5:20 PM Jr Lugoin [id number] 11/26/2020 8:30 AM Rosana Mchugh MD [facility] The patient's risk for 30-day readmission is determined using the following contributing factors: Pt variables contributing to increased readmission risk: 16 Active Medication Orders 8.9 First Resulted Calcium During Admission 5 Most Recent BUN Result 1 Previous ED Visit (6 mos.)? 1 Number of Previous ED Visits (6 mos.) 1 Discharge Disposition - Home 1 Active Anticoagulant 1 Number of Hospitalizations (12 mos.) SIGNATURE: Mahamed Perez MD DATE: September 13, 2020 TIME: 11:34 AM Normal [facility] Magnesiumon 09-13-2020 Magnesium [Mass/Vol] 1.6 mg/dL Low 1.7-2.6 [facility] Comment on above: Performed By: #### P HOS, MG1, CBCDIF, BMP ####[facility] [place], [place] [phone] NURSING PROGon 09-13-2020 NURSING PROG HNO ID: [id number] Author: Abelardo (Rn) KVNG Trujillo Service: ? Author Type: Registered Nurse Type: Nursing Progress Note Filed: 09/13/2020 7:46 AM Note Text: Nursing Progress Note Patient Name: [facility]: 2101: Pt is axox3, pleasant, s1/s2 regular, lungs clear, bowel sounds present, midline incision well approximated. Pt c/o pain, administered oxycodone 10 mg per DEC. No further needs at this time. WCTM. 0300: Pt c/o pain 04/24. Administered oxcodone 10 mg per DEC. 714: Report given to day shift. This note was completed by: Abelardo Trujillo, RN Normal [facility] Phosphoruson 09-13-2020 Phosphate [Mass/Vol] 5.4 mg/dL High 2.5-4.5 [facility] Comment on above: Performed By: #### P HOS, MG1, CBCDIF, BMP ####[address] [phone] APTTon 09-12-2020 aPTT Coag (Bld) [Time] 25.4 s Normal 23.0-32.4 [facility] Comment on above: Result Comment: Unfr actionated Heparin Therapeutic Ranges: Standard Heparin Nomogram: 53 to 78 seconds (anti-Xa level of 0.3 to 0.7 U/ml) Low Dose/ACS Nomogram: 49 to 67 seconds (anti-Xa level of 0.2 to 0.5 U/ml) Stroke Treatment Nomogram: 49 to 67 seconds (anti-Xa level of 0.2 to 0.5 U/ml) Note: The APTT therapeutic range has been determined for the current lot of laboratory APTT reagent in use throughout the [facility]. Performed By: #### C BC, BMP, PHOS, MG1 #### [place] [id number] Basic Metabolic Panlon 09-12 Anion gap [Moles/Vol] 11 mmol/L Normal 9-[address] [facility] Comment on above: Performed By: #### C BC, BMP, PHOS, MG1 #### [place] [id number] Calcium [Mass/Vol] 8.9 mg/dL Normal 8.5-10.5 [facility] Comment on above: Performed By: #### C BC, BMP, PHOS, MG1 #### [place] [phone] Chloride [Moles/Vol] 109 mmol/L Normal 98-110 [facility] Comment on above: Performed By: #### C BC, BMP, PHOS, MG1 #### [place] [phone] CO2 [Moles/Vol] 22 mmol/L Low 23-32 [facility] Comment on above: Performed By: #### C BC, BMP, PHOS, MG1 #### [place] [phone] Creatinine [Mass/Vol] 0.51 mg/dL Low 0.70-1.[address] [facility] Comment on above: Performed By: #### C BC, BMP, PHOS, MG1 #### [place] [phone] eGFR- Amer. >60 Normal >60 [facility] Comment on above: Performed By: #### C BC, BMP, PHOS, MG1 #### [place] [phone] eGFR-All Other Races >60 Normal >60 [facility] Comment on above: Performed By: #### C BC, BMP, PHOS, MG1 #### [place] [phone] Glucose [Mass/Vol] 65 mg/dL Normal 65-100 [facility] Comment on above: Performed By: #### C BC, BMP, PHOS, MG1 #### [place] [phone] Potassium [Moles/Vol] 4.7 mmol/L Normal 3.5-5.[address] [facility] Comment on above: Performed By: #### C BC, BMP, PHOS, MG1 #### [place] [phone] Sodium [Moles/Vol] 142 mmol/L Normal 132-148 [facility] Comment on above: Performed By: #### C BC, BMP, PHOS, MG1 #### [place] [phone] Urea nitrogen [Mass/Vol] 4 mg/dL Low 8-25 [facility] Comment on above: Performed By: #### C BC, BMP, PHOS, MG1 #### [place] [phone] CBC and Differentialon 09-12 Abs Baso 0.05 k/uL Normal <0.11 [facility] Comment on above: Performed By: #### C BC, BMP, PHOS, MG1 #### [place] [phone] Abs Boyd 0.49 k/uL Normal <0.87 [facility] Comment on above: Performed By: #### C BC, BMP, PHOS, MG1 #### [place] [phone] Abs Neut 4.46 k/uL Normal 1.45-7.50 [facility] Comment on above: Performed By: #### C BC, BMP, PHOS, MG1 #### [place] [phone] Absolute nRBC <0.01 Normal <0.01 [facility] Comment on above: Performed By: #### C BC, BMP, PHOS, MG1 #### [place] [phone] Basophils/100 WBC (Bld) 0.6 % Normal [facility] Comment on above: Performed By: #### C BC, BMP, PHOS, MG1 #### [phone] DTYPE Auto Diff Normal [facility] Comment on above: Performed By: #### C BC, BMP, PHOS, MG1 #### [place] [address] Eosinophils (Bld) [#/Vol] 0.25 10*3/uL Normal <0.46 [facility] Comment on above: Performed By: #### C BC, BMP, PHOS, MG1 #### [place] [phone] Eosinophils/100 WBC (Bld) 3.1 % Normal [facility] Comment on above: Performed By: #### C BC, BMP, PHOS, MG1 #### [place] [address] Erythrocyte distribution width (RBC) [Ratio] 15.0 % Normal 11.5-15.0 [facility] Comment on above: Performed By: #### C BC, BMP, PHOS, MG1 #### [place] [address] Hematocrit (Bld) [Volume fraction] 32.2 % Low 36.0-46.0 [facility] Comment on above: Performed By: #### C BC, BMP, PHOS, MG1 #### [place] [address] Hemoglobin (Bld) [Mass/Vol] 10.4 g/dL Low 11.5-15.5 [facility] Comment on above: Performed By: #### C BC, BMP, PHOS, MG1 #### [address] Lymphocytes (Bld) [#/Vol] 2.82 10*3/uL Normal 1.00-4.0 0 [facility] Comment on above: Performed By: #### C BC, BMP, PHOS, MG1 #### [address] Lymphocytes/100 WBC (Bld) 34.9 % Normal [facility] Comment on above: Performed By: #### C BC, BMP, PHOS, MG1 #### [phone] MCH 30.2 pG Normal 26.0-34.0 [facility] Comment on above: Performed By: #### C BC, BMP, PHOS, MG1 #### [place] [phone] MCHC (RBC) [Mass/Vol] 32.3 g/dL Normal 30.5-36.[address] [facility] Comment on above: Performed By: #### C BC, BMP, PHOS, MG1 #### [place] [phone] MCV (RBC) [Entitic vol] 93.6 fL Normal 80.0-100.0 [facility] Comment on above: Performed By: #### C BC, BMP, PHOS, MG1 #### [place] [phone] Monocytes/100 WBC (Bld) 6.1 % Normal [facility] Comment on above: Performed By: #### C BC, BMP, PHOS, MG1 #### [phone] Neutrophils/100 WBC (Bld) 55.3 % Normal [facility] Comment on above: Performed By: #### C BC, BMP, PHOS, MG1 #### [place] [phone] NRBCs 0.0 /100 WBC Normal 0 [facility] Comment on above: Performed By: #### C BC, BMP, PHOS, MG1 #### [phone] Platelet mean volume (Bld) [Entitic vol] 9.2 fL Normal 9.0-12.7 [facility] Comment on above: Performed By: #### C BC, BMP, PHOS, MG1 #### [place] [phone] Platelets (Bld) [#/Vol] 544 10*3/uL High 150-400 [facility] Comment on above: Performed By: #### C BC, BMP, PHOS, MG1 #### [place] [phone] RBC (Bld) [#/Vol] 3.44 10*6/uL Low 3.90-5.20 [facility] Comment on above: Performed By: #### C BC, BMP, PHOS, MG1 #### [place] [phone] WBC (Bld) [#/Vol] 8.09 10*3/uL Normal 3.70-11.00 [facility] Comment on above: Performed By: #### C BC, BMP, PHOS, MG1 #### [place] [phone] Magnesiumon 09-12-2020 Magnesium [Mass/Vol] 1.8 mg/dL Normal 1.7-2.6 [facility] Comment on above: Performed By: #### C BC, BMP, PHOS, MG1 #### [place] [phone] NURSING PROGon 09-12-2020 NURSING PROG HNO ID: [id number] Author: Kianna (Rn) KVNG Busby Service: Nursing Author Type: Registered Nurse Type: Nursing Progress Note Filed: 09/12/2020 12:26 AM Note Text: Nursing Progress Note Patient Name: Honey Montes Patient Location: [id number]/[id number] Daily Note: 0026: Pt requesting KOKON Peterson and Paged medical surgical tech for order. This note was completed by: Kianna Busby RN [facility] NURSING PROG HNO ID: [id number] Author: Kianna Vidal) KVNG Busby Service: Nursing Author Type: Registered Nurse Type: Nursing Progress Note Filed: 09/12/2020 12:25 AM Note Text: Nursing Progress Note Patient Name: Honey Montes Patient Location: [facility]/ Transfer Note: Patient transferred into room/unit 304 in stable condition. Actions taken: Report given by Mahamed in ED. No futher actions taken at this time. Will continue to monitor and check with patient. Paged surgery for orders. This note was completed by: Kianna Busby RN Normal [facility] Phosphoruson 09-12-2020 Phosphate [Mass/Vol] 5.0 mg/dL High 2.5-4.5 [facility] Comment on above: Performed By: #### C BC, BMP, PHOS, MG1 #### [facility] [address] [place] [address] Protimeon 09-12-2020 PT INR 1.0 Normal 0.9-1.3 [facility] Comment on above: Result Comment: Ana min K Antagonist (VKA) Therapeutic Range: INR 2 to 3 (Target INR of 2.5) Note: For patients treated with VKA drugs, such as warfarin, the [employer] [employer] 2012 Guideline recommends a therapeutic INR range of 2 to 3 (target INR of 2.5). This recommendation includes high-risk patients with antiphospholipid syndrome with previous arterial or venous thromboembolism, current-generation mechanical or bioprosthetic aortic heart valve replacement. Note: Patients with mechanical aortic valve replacement and additional risk factors for thromboembolic events (atrial fibrillation, previous thromboembolism, LV dysfunction, hypercoagulable conditions) or an older generation mechanical AVR (i.e., ball in-Cage) or any mechanical MVR should have a INR therapeutic range of 2.5 to 3.5 (target INR of 3). Marty GH, et al. Chest 2012, 141:7S-47S Emmanuel RA, et al. [facility] 2017, 70: 252-289 Performed By: #### C BC, BMP, PHOS, MG1 #### [place] [phone] PT Sec 11.0 sec Normal 9.7-13.0 [facility] Comment on above: Performed By: #### C BC, BMP, PHOS, MG1 #### [place] [phone] Type and Screenon 09-12-2020 ABO/RH(D) Positive Normal [facility] Comment on above: Performed By: #### C BC, BMP, PHOS, MG1 #### [place] [phone] CBC and Differentialon 09-11 Abs Baso 0.07 k/uL Normal <0.11 [facility] Comment on above: Performed By: #### C MP, LIPA, MG1, CBCDIF #### [place] [phone] Abs Boyd 0.56 k/uL Normal <0.87 [facility] Comment on above: Performed By: #### C MP, LIPA, MG1, CBCDIF #### [place] [phone] Abs Neut 5.17 k/uL Normal 1.45-7.50 [facility] Comment on above: Performed By: #### C MP, LIPA, MG1, CBCDIF #### [place] [phone] Absolute nRBC <0.01 Normal <0.01 [facility] Comment on above: Performed By: #### C MP, LIPA, MG1, CBCDIF #### [place] [phone] Basophils/100 WBC (Bld) 0.8 % Normal [facility] Comment on above: Performed By: #### C MP, LIPA, MG1, CBCDIF #### [place] [phone] DTYPE Auto Diff Normal [facility] Comment on above: Performed By: #### C MP, LIPA, MG1, CBCDIF #### [place] [id number] Eosinophils (Bld) [#/Vol] 0.27 10*3/uL Normal <0.46 [facility] Comment on above: Performed By: #### C MP, LIPA, MG1, CBCDIF #### [place] [id number] Eosinophils/100 WBC (Bld) 2.9 % Normal [facility] Comment on above: Performed By: #### C MP, LIPA, MG1, CBCDIF #### [place] [id number] Erythrocyte distribution width (RBC) [Ratio] 15.0 % Normal 11.5-15.0 [facility] Comment on above: Performed By: #### C MP, LIPA, MG1, CBCDIF #### [place] [address] Hematocrit (Bld) [Volume fraction] 36.4 % Normal 36.0-46.0 [facility] Comment on above: Performed By: #### C MP, LIPA, MG1, CBCDIF #### [address] Hemoglobin (Bld) [Mass/Vol] 11.6 g/dL Normal 11.5-15.5 [facility] Comment on above: Performed By: #### C MP, LIPA, MG1, CBCDIF #### [address] Lymphocytes (Bld) [#/Vol] 3.20 10*3/uL Normal 1.00-4.0 0 [facility] Comment on above: Performed By: #### C MP, LIPA, MG1, CBCDIF #### [place] [phone] Lymphocytes/100 WBC (Bld) 34.5 % Normal [facility] Comment on above: Performed By: #### C MP, LIPA, MG1, CBCDIF #### [place] [phone] MCH 29.7 pG Normal 26.0-34.0 [facility] Comment on above: Performed By: #### C MP, LIPA, MG1, CBCDIF #### [place] [phone] MCHC (RBC) [Mass/Vol] 31.9 g/dL Normal 30.5-36.[address] [facility] Comment on above: Performed By: #### C MP, LIPA, MG1, CBCDIF #### [place] [phone] MCV (RBC) [Entitic vol] 93.3 fL Normal 80.0-100.0 [facility] Comment on above: Performed By: #### C MP, LIPA, MG1, CBCDIF #### [place] [phone] Monocytes/100 WBC (Bld) 6.0 % Normal [facility] Comment on above: Performed By: #### C MP, LIPA, MG1, CBCDIF #### [place] [phone] Neutrophils/100 WBC (Bld) 55.8 % Normal [facility] Comment on above: Performed By: #### C MP, LIPA, MG1, CBCDIF #### [place] [phone] NRBCs 0.0 /100 WBC Normal 0 [facility] Comment on above: Performed By: #### C MP, LIPA, MG1, CBCDIF #### [place] [phone] Platelet mean volume (Bld) [Entitic vol] 8.9 fL Low 9.0-12.7 [facility] Comment on above: Performed By: #### C MP, LIPA, MG1, CBCDIF #### [place] [phone] Platelets (Bld) [#/Vol] 565 10*3/uL High 150-400 [facility] Comment on above: Performed By: #### C MP, LIPA, MG1, CBCDIF #### [place] [address] RBC (Bld) [#/Vol] 3.90 10*6/uL Normal 3.90-5.20 [facility] Comment on above: Performed By: #### C MP, LIPA, MG1, CBCDIF #### [place] [address] WBC (Bld) [#/Vol] 9.27 10*3/uL Normal 3.70-11.00 [facility] Comment on above: Performed By: #### C MP, LIPA, MG1, CBCDIF #### [place] [address] CONSULTon 09-11-2020 CONSULT HNO ID: [id number] Author: Wally Hayes Service: General Surgery Author Type: Resident Type: Consults Filed: 09/12/2020 1:21 AM Note Text: GENERAL SURGERY SERVICE INITIAL CONSULT NOTE SERVICE DATE: 09/11/2020 SERVICE TIME: 8:00 PM REASON FOR CONSULT: Abdominal pain REQUESTING PHYSICIAN: WOOD, Juani Edwards DO PRIMARY CARE PHYSICIAN: No primary care provider on file. Subjective Ms. 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 She was discharged last Tuesday 09/04, after which she had persistent pain that has worsenes. She's been using heating pad and pain meds, without relief. She's also had loose nonbloody diarrhea since her discharge and has not been passing gas. She presented to an OSH ED for worsening pain. A CT there read free fluid and air around the thickened Parrish limb and free air in the GB fossa which could be post-surgical. There was concern for SB ischemia, inflammation, or infection. She left the ED AMA and came to the [facility] ED. She passed a bowel movement described as diarrhea this morning. She feels bloated and has subcostal and upper abdominal tenderness. Afebrile. Not tachycardic. No nausea, no vomiting. Denies fevers, chills, CP, SOB. She's had similar diarrhea before her surgery while on miralax. Takes daily plavix. FUNCTIONAL STATUS: Independent PAST MEDICAL HISTORY Diagnosis Date - Coronary artery disease - Diabetes (HCC) - History of transfusion - HTN (hypertension) - Hx of colonoscopy 2017 - Hyperlipidemia - Neuroendocrine carcinoma of small bowel (HCC) 2017 - STEMI (ST elevation myocardial infarction) ([facility]) 03/2018 s/p PTCA-SUNITHA - Tobacco abuse PAST SURGICAL HISTORY Procedure Laterality Date - PARTIAL GASTRECTOMY 03/2020 s/p partial gastrectomy due to perforation - ROTATOR CUFF REPAIR 11/2019 No family history on file. Social History Tobacco Use - Smoking status: Current Every Day Smoker Packs/day: 1.00 Types: Cigarettes - Smokeless tobacco: Never Used Substance Use Topics - Alcohol use: Never Frequency: Never - Drug use: Never (Not in a hospital admission) No current facility-administere d medications for this encounter. Allergies As of Date: 09/11/2020 (No Known Allergies) Fully Assessed 09/11/2020 COMPLETE REVIEW OF SYSTEMS: PAIN ASSESSMENT: CURRENTLY HAVING PAIN; see HPI GENERAL: No fevers, chills. RESPIRATORY: Negative for dyspnea or shortness of breath CARDIOVASCULAR: Negative for chest pain GI: See HPI Objective PHYSICAL EXAM: Physical Exam Performed: BP 109/67 Pulse 73 Temp (Src) 97.7 (Oral) Resp 18 Ht 5' 4 (1.63m) Wt 108 lb (49.0kg) SpO2 99% BMI 18.53 kg/(m2). O2 Therapy: Room Air General appearance: Chronically ill appearing, alert Skin: Skin color, texture, turgor normal, no suspicious rashes or lesions Head: Normocephalic, no masses, lesions, tenderness or abnormalities Neck: Normal size Lungs: Lungs clear to auscultation. No wheezing, rhonchi, rales Heart: RRR without murmur, gallop, or rubs. No ectopy Abdomen: Soft, right upper and right lower abdominal tenderness, slightly distended, no rebound tenderness. Incision is c/d/i without surrounding erythema. Extremities: No deformities, edema or cyanosis Neuro: Gait normal, sensation grossly intact DATA: Diagnostic tests reviewed for today's visit: Most recent labs and imaging results. OSH CT (09/11) IMPRESSION: Small bowel wall thickening predominantly of the Parrish loop from prior gastric bypass with associated free intraperitoneal fluid and free air. ?This may represent small bowel ischemia, inflammation, or infection. There is also free intra-abdominal air as well as extraluminal air are seen in the gallbladder fossa which may be postsurgical, but cannot exclude perforated viscus. General surgical consultation suggested. 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 Normal [facility] CT-CT ABDOMEN AND PELVIS W C ONT IMPORTon 09-11-2020 CT-CT ABDOMEN AND PELVIS W CONT IMPORT Images were obtained outside of [facility] [id number] CN Normal [facility] Comp Metabolic Panelon 09-11 Albumin [Mass/Vol] 3.8 g/dL Normal 3.5-5.0 [facility] Comment on above: Performed By: #### C MP, LIPA, MG1, CBCDIF #### [place] [phone] ALP [Catalytic activity/Vol] 89 U/L Normal 34-123 [facility] Comment on above: Performed By: #### C MP, LIPA, MG1, CBCDIF #### [place] [phone] ALT [Catalytic activity/Vol] 19 U/L Normal 0-45 [facility] Comment on above: Performed By: #### C MP, LIPA, MG1, CBCDIF #### [place] [phone] Anion gap [Moles/Vol] 8 mmol/L Low 9-[address] [facility] Comment on above: Performed By: #### C MP, LIPA, MG1, CBCDIF #### [place] [phone] AST [Catalytic activity/Vol] 18 U/L Normal 7-40 [facility] Comment on above: Performed By: #### C MP, LIPA, MG1, CBCDIF #### [place] [phone] Bilirubin [Mass/Vol] mg/dL Low 0.2-1.3 [facility] Comment on above: Performed By: #### C MP, LIPA, MG1, CBCDIF #### [place] [phone] Calcium [Mass/Vol] 9.1 mg/dL Normal 8.5-10.5 [facility] Comment on above: Performed By: #### C MP, LIPA, MG1, CBCDIF #### [place] [phone] Chloride [Moles/Vol] 101 mmol/L Normal 98-110 [facility] Comment on above: Performed By: #### C MP, LIPA, MG1, CBCDIF #### [place] [phone] CO2 [Moles/Vol] 29 mmol/L Normal 23-32 [facility] Comment on above: Performed By: #### C MP, LIPA, MG1, CBCDIF #### [place] [phone] Creatinine [Mass/Vol] 0.65 mg/dL Low 0.70-1.[address] [facility] Comment on above: Performed By: #### C MP, LIPA, MG1, CBCDIF #### [place] [phone] eGFR- Amer. >60 Normal >60 [facility] Comment on above: Performed By: #### C MP, LIPA, MG1, CBCDIF #### [place] [phone] eGFR-All Other Races >60 Normal >60 [facility] Comment on above: Performed By: #### C MP, LIPA, MG1, CBCDIF #### [place] [phone] Glucose [Mass/Vol] 85 mg/dL Normal 65-100 [facility] Comment on above: Performed By: #### C MP, LIPA, MG1, CBCDIF #### [place] [phone] Potassium [Moles/Vol] 3.8 mmol/L Normal 3.5-5.[address] [facility] Comment on above: Performed By: #### C MP, LIPA, MG1, CBCDIF #### [phone] Protein [Mass/Vol] 6.6 g/dL Normal 6.0-8.4 [facility] Comment on above: Performed By: #### C MP, LIPA, MG1, CBCDIF #### [facility] [address] [place] [phone] Sodium [Moles/Vol] 138 mmol/L Normal 132-148 [facility] Comment on above: Performed By: #### C MP, LIPA, MG1, CBCDIF #### [facility] [address] [place] [phone] Urea nitrogen [Mass/Vol] 3 mg/dL Low 8-25 [facility] Comment on above: Performed By: #### C MP, LIPA, MG1, CBCDIF #### [place] [id number] [place] [phone] Coronavirus 2019on 0 SARS-CoV-2 (COVID-19) RNA MARQUITA+probe Ql (Unsp spec) UPPER RESPIRATORY TRACT SWAB Normal [facility] Comment on above: Performed By: #### C BC, BMP, PHOS, MG1 #### [place] [phone] SARS-CoV-2 (COVID-19) RNA MARQUITA+probe Ql (Unsp spec) Negative Normal Negative for COVID19 (SARS CoV2) by PCR. [facility] Comment on above: Result Comment: This test was developed and its performance characteristics determined by [facility]. This test has been authorized by FDA under an Emergency Use Authorization (EUA). This test has been validated in accordance with the FDA's Guidance Document Policy for Diagnostics Testing in Laboratories Certified to Perform High Complexity Testing under CLIA prior to Emergency use Authorization for Coronavirus Disease 2019 during the Public Health Emergency issued on December 14, 2019. Performed By: #### C BC, BMP, PHOS, MG1 #### [place] [phone] ED NOTEon 09-11-2020 ED NOTE HNO ID: [id number] Author: Mahamed (Rn) KVNG Matute Service: ? Author Type: Registered Nurse Type: ED Notes Filed: 09/11/2020 9:18 PM Note Text: DEMETRIA walked to lab Normal [facility] ED NOTE HNO ID: [id number] Author: Mahamed RobertsonRn) KVNG Matute Service: ? Author Type: Registered Nurse Type: ED Notes Filed: 09/11/2020 9:24 PM Note Text: Pt states can I get something else for pain instead of morphine. Morphine doesn't work for me . PA notified. [facility] ED NOTE HNO ID: [id number] Author: Neela RobertsonRn) KVNG Avila Service: ? Author Type: Registered Nurse Type: ED Notes Filed: 09/11/2020 7:11 PM Note Text: Report to KVNG Irby. [facility] ED NOTE HNO ID: [id number] Author: Neela RobertsonRn) KVNG Avila Service: ? Author Type: Registered Nurse Type: ED Notes Filed: 09/11/2020 6:46 PM Note Text: Pt to ER with possible bowel ischemia. Family reports patient had gallbladder removal last week and has not had BM or passed gas. Pt also reports increasing pain. CT report from family shows ischemia, inflammation, or infection. Family signed out AMA from other hospital to come here and see Dr. Vargas. [facility] ED NOTE HNO ID: [id number] Author: Juani RobertsonRn) KVNG Castellanos Service: ? Author Type: Registered Nurse Type: ED Notes Filed: 09/11/2020 6:34 PM Note Text: Bed: 16-ED Expected date: Expected time: Means of arrival: Comments: Triage [facility] ED PROV NOTEon 09-11-2020 ED PROV NOTE HNO ID: [id number] Author: Juani Edwards DO Service: Emergency Medicine Author Type: Physician Type: ED Provider Notes Filed: 09/11/2020 10:50 PM Note Text: ED Provider Note Patient Name: Honey Montes SERVICE DATE: 09/11/20 History Patient presents with: Sent By Md: free air in abdomen and possible bowel ischemia, recent surgery 60-year-old female, status post exploratory laparotomy with mesenteric mass excision on 08/31/2020, history of DM, HTN, CAD, partial gastrectomy -here for worsening abdominal pain for the past few days. Last bowel movement -diarrhea this morning. Denies any nausea or vomiting. Patient was seen at an outside hospital earlier today for the worsening abdominal pain, lab and CT abdomen/pelvis performed. CT ab showed some air, ? secondary to previous surgery versus free air. Patient was referred here for evaluation. PAST MEDICAL HISTORY Diagnosis Date - Coronary artery disease - Diabetes (HCC) - History of transfusion - HTN (hypertension) - Hx of colonoscopy 2017 - Hyperlipidemia - Neuroendocrine carcinoma of small bowel (HCC) 2017 - STEMI (ST elevation myocardial infarction) (HCC) 03/2018 s/p PTCA-SUNITHA - Tobacco abuse PAST SURGICAL HISTORY Procedure Laterality Date - PARTIAL GASTRECTOMY 03/2020 s/p partial gastrectomy due to perforation - ROTATOR CUFF REPAIR 11/2019 No family history on file. Social History Tobacco Use - Smoking status: Current Every Day Smoker Packs/day: 1.00 Types: Cigarettes - Smokeless tobacco: Never Used Substance and Sexual Activity - Alcohol use: Never Frequency: Never - Drug use: Never - Sexual activity: Not on file ALLERGIES No Known Allergies Review of Systems Constitutional: Negative for chills and fever. HENT: Negative for facial swelling, sore throat and trouble swallowing. Eyes: Negative for visual disturbance. Respiratory: Negative for cough and shortness of breath. Cardiovascular: Negative for chest pain and leg swelling. Gastrointestinal: Positive for abdominal pain and diarrhea. Negative for nausea and vomiting. Genitourinary: Negative for difficulty urinating and dysuria. Musculoskeletal: Negative for back pain, myalgias and neck pain. Skin: Negative for rash and wound. Neurological: Negative for dizziness, syncope, light-headedness and headaches. Psychiatric/Behavior al: Negative for behavioral problems and confusion. The patient is not nervous/anxious. Physical Exam BP 117/62 Pulse 73 Temp (Src) 97.7 (Oral) Resp 18 Ht 5' 4 (1.63m) Wt 108 lb (49.0kg) SpO2 99% BMI 18.53 kg/(m2). O2 Therapy: Room Air Physical Exam Vital signs and Nursing notes were reviewed Gen Appearance: Patient is alert and oriented and in moderate acute distress. Neck: Supple, Trach/Thyroid normal EENT: PERRLA, EOMI, Conjunctivae normal. Skin: Warm and dry with no rash. Cardiovascular: Heart RRR, no gallops or rubs, no aorta enlargement or bruit noted. Respiratory: Lungs clear, no wheezing, no rales, normal breath sounds. Gastrointestinal: Decreased bowel sounds, positive midline incision, closed, no dehiscence or infection noted. Positive tenderness with guarding and slight rebound to the mid abdomen. Musculoskeletal: No tenderness to extremities, No back or hip pain. Neurological: Pt is alert and oriented x 3, memory intact, no focal motor or sensory deficits noted. Diagnostic Testing Labs Reviewed CBC + AUTO DIFF (AK,AV,EU,FV,HL,CYNDI,M M,SP) - Abnormal; Notable for the following components: Result Value Platelet Count 565 (*) MPV 8.9 (*) All other components within normal limits COMPREHENSIVE METABOLIC PANEL (AK,AV,EU,FV,HL,CYNDI,M M,SP) - Abnormal; Notable for the following components: Bilirubin, Total <0.2 (*) BUN 3 (*) Creatinine 0.65 (*) Anion Gap 8 (*) All other components within normal limits URINALYSIS WITH MICROSCOPIC (AK,AV,EU,FV,HL,YCNDI,M M,SP) - Abnormal; Notable for the following components: Color Colorless (*) WBC, Urine Rare (*) Epithelial Cells SEE COMMENT (*) All other components within normal limits LIPASE BLOOD (AK,AV,EU,FV,HL,CYNDI,M M,SP) MAGNESIUM BLOOD (AK,AV,EU,FV,HL,CYNDI,M M,SP) SEPSIS LACTATE (AK,EU,FV,HL,CYNDI,MM,S P) 2019 CORONAVIRUS The radiology studies that were performed were reviewed. Procedures ED Course / Clinical Impression ED Course as of Sep 11 2207 Others' Documentation MonSep 11, [id number] Patient is a 60-year-old female presents with abdominal pain. She was discharged from the hospital on Monday after an abdominal surgery. Has had diarrhea for the past 2 days after she took MiraLAX, mag citrate. Nurses worsening diffuse abdominal tenderness, worse in the upper abdomen. Worse with movement. Exam --patient is uncomfortable appearing. Diffuse abdominal tenderness with guarding. [MM] ED Course User Index [MM] Juani Edwards, Clinical Impressions as of Sep 11 2207 Abdominal (more content not included)... Normal [facility] Lipaseon 09-11-2020 Lipase [Catalytic activity/Vol] 24 U/L Normal 16-61 [facility] Comment on above: Performed By: #### C MP, LIPA, MG1, CBCDIF #### [place] [phone] Magnesiumon 09-11-2020 Magnesium [Mass/Vol] 1.9 mg/dL Normal 1.7-2.6 [facility] Comment on above: Performed By: #### C MP, LIPA, MG1, CBCDIF ####[place] [id number] Sepsis Lactateon 09-11-2020 Sepsis Lactate 0.7 mmol/L Normal 0.5-2.0 [facility] Comment on above: Performed By: #### C BC, BMP, PHOS, MG1 #### [place] [address] Urinalysis with Microscopico n 09-11-2020 Bilirubin, Urine Negative Normal Negative [facility] Comment on above: Performed By: #### U AWMIC #### [address] Clarity (U) Clear Normal Clear [facility] Comment on above: Performed By: #### U AWMIC #### [place] [address] Color (U) Colorless Critically abnormal Yellow [facility] Comment on above: Performed By: #### U AWMIC #### [place] [phone] Comments SEE COMMENT Normal [facility] Comment on above: Result Comment: Micr oscopic Examination Performed Performed By: #### U AWMIC #### [place] [address] Epithelial cells LM Ql (Urine sed) SEE COMMENT Critically abnormal Negative [facility] Comment on above: Result Comment: Rare Squamous Epithelial Cells Performed By: #### U AWMIC #### [place] [phone] Glucose Ql (U) Negative Normal Negative [facility] Comment on above: Performed By: #### U AWMIC #### [place] [phone] Hemoglobin/Blood,Ur Negative Normal Negative [facility] Comment on above: Performed By: #### U AWMIC #### [place] [address] Ketones Ql (U) Negative Normal Negative [facility] Comment on above: Performed By: #### U AWMIC #### [place] [address] Leukest Negative Normal Negative [facility] Comment on above: Performed By: #### U AWMIC #### [place] [address] Nitrite Ql (U) Negative Normal Negative [facility] Comment on above: Performed By: #### U AWMIC #### [place] [address] pH (U) 6.5 [pH] Normal 5.0-8.0 [facility] Comment on above: Performed By: #### U AWMIC #### [place] [address] Protein, Urine Negative Normal Negative [facility] Comment on above: Performed By: #### U AWMIC #### [place] [address] RBC (U) [#/Vol] Negative Normal [facility] [place] Comment on above: Performed By: #### U AWMIC #### [place] [address] Specific [place]mill[place], Ur 1.017 Normal 1.005-1 .03 0 [facility] Comment on above: Performed By: #### U AWMIC #### [place] [address] Urobilinogen (U) [Mass/Vol] Negative Normal Negative [facility] Comment on above: Performed By: #### U AWMIC #### [place] [id number] WBC Rare Critically abnormal Negative [facility] Comment on above: Performed By: #### U AWMIC #### [place] [phone] Basic Metabolic Panlon 09-04 Anion gap [Moles/Vol] 9 mmol/L Normal 9-[address] [facility] Comment on above: Performed By: #### C BC, BMP, PHOS, MG1 #### [place] [phone] Calcium [Mass/Vol] 9.2 mg/dL Normal 8.5-10.5 [facility] Comment on above: Performed By: #### C BC, BMP, PHOS, MG1 #### [place] [phone] Chloride [Moles/Vol] 102 mmol/L Normal 98-110 [facility] Comment on above: Performed By: #### C BC, BMP, PHOS, MG1 #### [place] [phone] CO2 [Moles/Vol] 27 mmol/L Normal 23-32 [facility] Comment on above: Performed By: #### C BC, BMP, PHOS, MG1 #### [place] [phone] Creatinine [Mass/Vol] 0.53 mg/dL Low 0.70-1.[address] [facility] Comment on above: Performed By: #### C BC, BMP, PHOS, MG1 #### [place] [phone] eGFR- Amer. >60 Normal >60 [facility] Comment on above: Performed By: #### C BC, BMP, PHOS, MG1 #### [place] [phone] eGFR-All Other Races >60 Normal >60 [facility] Comment on above: Performed By: #### C BC, BMP, PHOS, MG1 #### [place] [phone] Glucose [Mass/Vol] 82 mg/dL Normal 65-100 [facility] Comment on above: Performed By: #### C BC, BMP, PHOS, MG1 #### [place] [phone] Potassium [Moles/Vol] 5.1 mmol/L High 3.5-5.[address] [facility] Comment on above: Result Comment: Revi ewed Performed By: #### C BC, BMP, PHOS, MG1 #### [place] [phone] Sodium [Moles/Vol] 138 mmol/L Normal 132-148 [facility] Comment on above: Performed By: #### C BC, BMP, PHOS, MG1 #### [place] [phone] Urea nitrogen [Mass/Vol] 3 mg/dL Low 8-25 [facility] Comment on above: Performed By: #### C BC, BMP, PHOS, MG1 #### [place] [phone] CBCon 09-04-2020 Absolute nRBC <0.01 Normal <0.01 [facility] Comment on above: Performed By: #### C BC, BMP, PHOS, MG1 #### [place] [phone] Erythrocyte distribution width (RBC) [Ratio] 14.3 % Normal 11.5-15.0 [facility] Comment on above: Performed By: #### C BC, BMP, PHOS, MG1 #### [place] [phone] Hematocrit (Bld) [Volume fraction] 31.4 % Low 36.0-46.0 [facility] Comment on above: Performed By: #### C BC, BMP, PHOS, MG1 #### [phone] Hemoglobin (Bld) [Mass/Vol] 10.4 g/dL Low 11.5-15.5 [facility] Comment on above: Performed By: #### C BC, BMP, PHOS, MG1 #### [place] [phone] MCH 30.1 pG Normal 26.0-34.0 [facility] Comment on above: Performed By: #### C BC, BMP, PHOS, MG1 #### [place] [phone] MCHC (RBC) [Mass/Vol] 33.1 g/dL Normal 30.5-36.[address] [facility] Comment on above: Performed By: #### C BC, BMP, PHOS, MG1 #### [phone] MCV (RBC) [Entitic vol] 91.0 fL Normal 80.0-100.0 [facility] Comment on above: Performed By: #### C BC, BMP, PHOS, MG1 #### [place] [phone] Platelet mean volume (Bld) [Entitic vol] 10.6 fL Normal 9.0-12.7 [facility] Comment on above: Performed By: #### C BC, BMP, PHOS, MG1 #### [phone] Platelets (Bld) [#/Vol] 244 10*3/uL Normal 150-400 [facility] Comment on above: Performed By: #### C BC, BMP, PHOS, MG1 #### [phone] RBC (Bld) [#/Vol] 3.45 10*6/uL Low 3.90-5.20 [facility] Comment on above: Performed By: #### C BC, BMP, PHOS, MG1 #### [place] [phone] WBC (Bld) [#/Vol] 8.87 10*3/uL Normal 3.70-11.00 [facility] Comment on above: Performed By: #### C BC, BMP, PHOS, MG1 #### [facility] [address] [place] [id number] [facility] 09-04-2020 DS HNO ID: [id number] Author: Earl Loo Service: General Surgery Author Type: Resident Type: Discharge Summary Filed: 09/04/2020 3:40 PM Note Text: The [address] [address] or [phone] CC-CARE C O N F I D E N T I A L I N F O R M A T I O N DISCHARGE SUMMARY ADMISSION DATE: 08/31/2020 DISCHARGE DATE: 09/04/2020 Attending Physician: Jr Sinha Reason for Hospitalization: Surgical Treatment of NET Final Diagnoses: 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] ACTIVE PROBLEM LIST Epigastric Pain Personal History of Malignant Neoplasm of Breast Anxiety Disorder, Unspecified Atherosclerotic Heart Disease of [place] Coronary Artery Without Angina Pectoris Gastrointestinal Hemorrhage, Unspecified Custodial (Current) Use of Antithrombotics/Anti platelets Cigarette Nicotine Dependence Without Complication Abnormal CT of The Abdomen Essential Hypertension Other Hyperlipidemia Nstemi (Non-St Elevated Myocardial Infarction) (Hcc) Type 2 Diabetes Mellitus Without Complication, Without Long-Term Current Use of Insulin (Hcc) Neuroendocrine Carcinoma of Small Bowel (Hcc) Nicotine use disorder, F17.2 Operations During Hospitalization: Procedure(s) with comments: RESECTION BOWEL SMALL - resection of proximal jejunum D4 with mesenteric mass, dissection of jejunostomy, small bowel anastamosis x 2 CHOLECYSTECTOMY OPEN Date of Surgery: 08/31/2020 Indication: Pre-Op Diagnosis Codes: * 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 Upon evaluation in clinic we decided to take her to the OR for the procedure listed above. This was performed 08/31/2020 without incident. Postoperatively she was admitted to the hospital in good condition. Overall her postoperative course was neventful. she made a satisfactory recovery and by the date of discharge she had stable nutrient intake, was performing essential ADLs, and her pain was well controlled. At this point we felt she was appropriate for discharge, all final arrangements were made, and she was released from the hospital. Patient Condition @ Discharge: Good Discharge Disposition: Home/Self Care Information Provided to Patient: Patient given copy of Discharge Instructions Discharge Medications: Current Discharge Medication List START taking these medications acetaminophen (TYLENOL) 650 mg Take 650 mg by mouth every 6 hours as needed for Pain. oxyCODONE IR (ROXICODONE) 5 mg Take 5 mg by mouth every 6 hours as needed for Pain. Qty: 28 tablet Refills: 0 Associated Diagnoses:Small bowel cancer (HCC) diazePAM (VALIUM) 1 mg Take 1 mg by mouth three times daily as needed. Qty: 21 tablet Refills: 0 Associated Diagnoses:Small bowel cancer (HCC) CONTINUE these medications which have CHANGED ALPRAZolam (XANAX) 1 mg Take 1 mg by mouth three times daily as needed. Do not take while on valium Qty: CONTINUE these medications which have NOT CHANGED oxyCODONE-acetaminop hen (PERCOCET) 1 tablet Take 1 tablet by mouth every 8 hours as needed. 10-325mg clopidogrel (PLAVIX) 75 mg Take 75 mg by mouth once daily. Ferrous Fumarate 65 Each Take 65 Each by mouth once daily. gabapentin (NEURONTIN) 600 mg Take 600 mg by mouth three times daily. metformin HCl (METFORMIN ORAL) 500 mg Take 500 mg by mouth twice daily. metoprolol tartrate (short acting) (LOPRESSOR) 25 mg Take 25 mg by mouth twice daily. atorvastatin (LIPITOR) 80 mg Take 80 mg by mouth once daily. potassium chloride (K-TAB) 10 mEq Take 10 mEq by mouth once daily. zolpidem (AMBIEN) 10 mg Take 10 mg by mouth at bedtime as needed. citalopram (CeleXA) 20 mg Take 20 mg by mouth once daily. Magnesium Oxide 400 mg Take 400 mg by mouth once daily. tamoxifen (NOLVADEX) 20 mg Take 20 mg by mouth once daily. omeprazole (PriLOSEC) 40 mg Take 40 mg by mouth daily before breakfast. Qty: 90 capsule Refills: 3 iv contrast (will be provided with radiology test) MRI ABDOMEN Inject, intravenously, once for 1 dose. No IV access, insert saline lock prior to the beginning of sedation, infusion, injection of imaging exam. Discontinue saline lock post exam. If Pt. has a central line or IVAD, may access for administration according to line specific nursing protocol. Once exam is complete flush line and de-access according to line specific nursing protocol in the MR contrast administration guidelines link. Qty: 1 Each Refills: 0 Associated Diagnoses:GIST, non-malignant Future Appointments: Please follow-up as recommended by your provider. SIGNATURE: Earl Loo MD PATIENT NAME: April (more content not included)... [facility] CONSULT PROGon 09-04-2020 CONSULT PROG HNO ID: [id number] Author: Haleigh (Chelsea Case Service: Pain Management Author Type: Nurse Practitioner Type: Consult Progress Note Filed: 09/04/2020 12:54 PM Note Text: PERIPHERAL NERVE CATHETER PROGRESS NOTE PATIENT NAME: Honey Montes SERVICE DATE: 09/04/2020 SERVICE TIME: 8:34 AM ASSESSMENT Honey Montes is a 60 year old female with pmhx: anxiety, CAD, DM, HTN,HLP, mesenteric mass who is now POD# 4, S/P Exploratory laparotomy, excision of mesenteric mass involving D4 and proximal jejunum, resection of JJ, creation of DJ and new JJ with 40 cm BP limb, cholecystectomy. She has paravertebral nerve catheters placed for post-op pain control. Ms. Montes is OOB to chair, talking to her daughter, in good spirits. Bilateral PV sites without signs or symptoms of infection, no erythema, tenderness, drainage, or warmth. PLAN/Recs: Patient reports pain well-controlled since PNC placed on hold this AM. Patient currently rating pain score 7. Bilateral PV removed by APMS, catheter tips intact. Bilateral PV sites without signs or symptoms of infection, no erythema, tenderness, drainage, or warmth. Patient encouraged to utilize oral pain regimen to optimize pain control. Pain regimen changed by Primary team, please continue regimen per primary team The plan was discussed in detail with patient +/- family, bedside RN, APMS staff and primary service, who expressed agreement, understanding and comfort with the plan. APMS will sign off and defer further management to primary team. If pain worsens or difficulties arise please reconsult APMS. Thank you for including us in her care. SUBJECTIVE CHIEF COMPLAINT: Post operative pain PRIMARY SERVICE: General Surgery INTERVAL HPI: Honey Montes is a 60 year old female who is POD# 4 Exploratory laparotomy, excision of mesenteric mass involving D4 and proximal jejunum, resection of JJ, creation of DJ and new JJ with 40 cm BP limb, cholecystectomy. She has bilateral T8 paravertebral nerve catheters placed for post-op pain control. Pain level is 7 at rest She reports the pain ranges from 7-10/10 Pain at surgical site? Yes, abdomen Character: sharp, stabbing, and shooting pain Duration: consistent with intermittent spike in pain Relieved: Improved with medications and PVC Is patient satisfied with pain control: No Overnight Events: PVC leaking Overnight Pain Interventions: No Allergy: ALLERGIES No Known Allergies MEDICATIONS: I have interrogated the multi therapy pump for the correct settings and solution: Yes. Solution Ropivacaine 0.2%, rate 0/8/30/2 ml/hr. Adjuvant Pain Medication: See below. Current Facility-Administere d Medications Medication Dose Route Frequency - famotidine 20 mg injection (PEPCID) 20 mg INTRAVENOUS BID - dextrose 40 % 15 g 15 g ORAL PRN Or - glucagon 1 mg injection 1 mg INTRAMUSCULAR PRN Or - dextrose 50% in water 25 mL syringe 12.5 g INTRAVENOUS PRN - heparin 5,000 Units injection 5,000 Units SUBCUTANEOUS q 8 H - ondansetron 4 mg tab(s) (ZOFRAN) 4 mg ORAL q 6 H PRN Or - ondansetron (PF) 4 mg injection (ZOFRAN) 4 mg INTRAVENOUS q 6 H PRN - insulin lispro injection (rapid acting) (HumaLOG) SUBCUTANEOUS q 6 H - diclofenac 1.3 % 1 Patch (FLECTOR) 1 Patch TRANSDERMAL BID And - diclofenac - REMOVE PATCH OTHER BID And - diclofenac - VERIFY PATCH OTHER q 8 H - lidocaine 4 % 2 Patch (SALONPAS) 2 Patch TRANSDERMAL DAILY And - lidocaine patch - REMOVE OTHER AT BEDTIME And - lidocaine - VERIFY PATCH OTHER q 8 H - ALPRAZolam 0.5 mg tab(s) (XANAX) 0.5 mg ORAL TID PRN - acetaminophen 650 mg tab(s) (TYLENOL) 650 mg ORAL q 6 H - gabapentin 600 mg cap(s) (NEURONTIN) 600 mg ORAL q 8 H - diazePAM 1 mg tab(s) (VALIUM) 1 mg ORAL TID PRN - zolpidem 10 mg tab(s) (AMBIEN) 10 mg ORAL HS PRN - citalopram 20 mg tab(s) (CeleXA) 20 mg ORAL DAILY - metoprolol tartrate (short acting) 25 mg tab(s) (LOPRESSOR) 25 mg ORAL q 12 H - oxyCODONE IR 5 mg tab(s) (ROXICODONE) 5 mg ORAL q 4 H PRN - oxyCODONE IR 10 mg tab(s) (ROXICODONE) 10 mg ORAL q 4 H PRN - fentaNYL 50 mcg/mL 25 mcg injection (SUBLIMAZE) 25 mcg INTRAVENOUS q 2 H PRN OBJECTIVE: PHYSICAL EXAM: BP 103/54 Pulse 74 Temp 36.9 ?C (98.4 ?F) (Oral) Resp 16 Ht 165 cm (5' 4.96 ) Wt 51.8 kg (114 lb 4.8 oz) SpO2 97% BMI 19.04 kg/m? Affect: awake and alert, OOB to chair General Impression: appears comfortable Catheter site is wet, clean, non-tender and dressing intact. Respiratory Exam: Respirations: Breathing appears normal Thoracostomy tube?: No Gastrointestinal Exam: Abdomen: diffuse tenderness with palpation. Imani in place midline. Drain in place. NG?: No DATA: Component Latest Ref Rng AND Units 09/04/2020 RBC 3.90 - 5.20 m/uL 3.45 (L) Hemoglobin 11.5 - 15.5 g/dL 10.4 (L) Hematocrit 36.0 - 46.0 % 31.4 (L) MCV 80.0 - 100.0 fL 91.0 MCH 26.0 - 34.0 pG 30.1 MCHC 30.5 - 36.0 g/d (more content not included)... Normal [facility] Magnesiumon 09-04-2020 Magnesium [Mass/Vol] 2.0 mg/dL Normal 1.7-2.6 [facility] Comment on above: Result Comment: Revi ewed Performed By: #### C ALEX, YAZMIN, KERONS, MG1 #### [facility] [address] [place] [address] NURSING PROGon 09-04-2020 NURSING PROG HNO ID: [id number] Author: Philly RobertsonRn) KVNG Grossman Service: Nursing Author Type: Registered Nurse Type: Nursing Progress Note Filed: 09/04/2020 4:45 PM Note Text: Nursing Progress Note Patient Name: Honey Montes Patient Location: Daily Note: 1745: D/c instructions reviewed with patient and daughter states understanding. RX for valium and oxycodone given to patient. IV heplocks removed. D/c off unit via wheelchair and belongings. This note was completed by: Philly Grossman RN [facility] NURSING PROG HNO ID: [id number] Author: Philly RobertsonRn) KVNG Grossman Service: Nursing Author Type: Registered Nurse Type: Nursing Progress Note Filed: 09/04/2020 1:28 PM Note Text: Nursing Progress Note Patient Name: Honey Montes Patient Location: Daily Note: 0716: Paged orange team re: potassium level 5.1 this am. If we can please change her ivf because currently it contains potassium. 0830: IVF d/c'd. 1330: paged orange team re: patient refusing her ensure and boost supplements. States she does not like the consistency. Patient states she would like Gatorade orange flavor instead. This note was completed by: Philly Grossman RN [facility] NURSING PROG HNO ID: [id number] Author: Abelardo (Rn) KVNG Trujillo Service: ? Author Type: Registered Nurse Type: Nursing Progress Note Filed: 09/04/2020 7:18 AM Note Text: Nursing Progress Note Patient Name: Honey Montes Patient Location: / Daily Note: 2130: Pt is axox3, pleasant, s1/s2 regular, lungs clear but diminished, bowel sounds hypoactive, dressings are C/D/I. No further needs at this time. Will continue to monitor. 0315: C/O pain /. Administered Oxycodone 10 mg per DEC 399: C/o muscles spasm. Administered valium per DEC. WCTM 0700: No other significant events overnight. Hand off given to day shift. This note was completed by: Abelardo Trujillo RN [facility] Phosphoruson 09-04-2020 Phosphate [Mass/Vol] 4.3 mg/dL Normal 2.5-4.5 [facility] Comment on above: Performed By: #### C BC, BMP, PHOS, MG1 #### [place] [address] THERAPY NTon 09-04-2020 THERAPY NT HNO ID: [id number] Author: [place] (Pt) Jenna Service: Physical Therapy Author Type: Physical Therapist Type: Therapy (PT/OT/Speech/Resp) Filed: 09/04/2020 11:49 AM Note Text: Physical Therapy Treatment SERVICE DATE: 09/04/2020 SERVICE TIME: 1107 to 1117 ROOM: [place] [address] Recommended Discharge Disposition: Home PT Anticipated Discharge Needs: Physical Assist at Home Physical Assist at Home for: Meals;Laundry;Cleani ng;Shopping;Transpor tation Recommended Discharge Equipment: To Be Determined PT 6 Clicks Score: 23 Precautions/Activity Restrictions: Abdominal;Fall Risk;Lines/Tubes/Nataly ins Precaution/Activity Restriction Comments: abdominal precautions Isolation Type: None Current Hospital Course: Neuroendocrine Mass, S/P Exp lap, Excision Mass, resection Of JJ, Creation New JJ, Lilia, Refer to Epic Reason for Hospital Admission: Neuroendocrine Mass, refer to [facility] Relevant Past Medical History: NSTEMI, Anxiety Disorder, DM II, Smoker, Breast CA, refer to [facility] Physical Therapy Problem List: Pain;Safety Deficits;Functional Mobility Impairment;Balance Impaired Treatment Interventions: Education;Strengthen ing;Functional Mobility Training;Balance Training Home Environment Patient Lives With: Spouse;Other: See Comment(daughter staying to help ) Assistance Available: PRN(daughter available) Entry To Home: No Stairs Number Of Stairs Into Home: 0 Number Of Stairs To Bed/Bath: 0 Tub/Shower Type: Tub/Shower and Walk-in Shower Laundry: 1st floor; patient completes Equipment Owned: Hand Held Shower;Grab Bars-Shower;Shower Chair;Cane;Lift Chair;Elevated Toilet Seat Prior Functional Level: Within Functional Limits Prior Functional Level Comments: Pt reports being independent with all ADLs; Pt drives; Pt ambulates without an assistive device CURRENT FUNCTIONAL STATUS: Most recent performance Current Functional Mobility Assist Level Additional Information Rolling Stand By Assistance Supine to Sit Stand By Assistance Sit to Supine Scooting Modified Independent Sit to Stand Stand By Assistance Stand to Sit Verbal Cues Only Bed to Chair Toilet/Commode Gait Stand By Assistance Gait Device: None Gait Distance (feet): 260' Stairs (pt declined to do the stairs.) Curb Step Car Transfer Blank ibarra indicate activity not attempted General Deviations/Observati ons: Kaylan decreased;Flexed trunk posture;Step length decreased Balance: Dynamic Standing Dynamic Standing Balance: Good Patient accepts moderate challenge, able to maintain balance while picking up object off floor Activity Tolerance: Standing Activity Standing Activity: [id number]; gait training without assistive device Standing Activity Tolerance (in minutes): 6 JH-HLM: 8: Walk 250 feet or more Learning/Educational Needs: Discharge Plan;Functional Activities/Mobility; Plan of Care;Precautions;Saf ety Goals for Plan of Care: Patient /Caregiver Goals: Go Home Goals: Patient will demonstrate understanding of importance of mobility during hospital stay and resolve all functional needs identified.;Patient will demonstrate progress with functional mobility to allow safe discharge to home with available support and/or physical assistance.;Patient will demonstrate progress to optimize functional mobility, maximize activity tolerance and endurance to maximize function upon discharge. Able to perform HEP with: Independent Rolling with: Modified Independent Transfer supine to/from sit with: Supervision Transfer sit to/from stand with: Stand By Assistance Ambulate with: Supervision Distance: 400' Device: No Device Progress Toward Goals: Progressing as expected Rehab Potential: Good Patient will be discontinued from Physical Therapy when no further skilled needs are identified in this setting. PLAN: Treatment Frequency (times per week): 3 Current admission Plan of Care developed with: Patient;Family(ryanne tovar) TREATMENT INTERVENTIONS: Therapy Diagnosis: Reduced mobility-other Interventions Provided: Gait Training (54468) Gait Training (79840) Treatment Minutes: 10 Mom-pi-zxvlf/stand-t o-sit transfers with cues provided to push up from the chair and to reach back for the chair respectively for safety. Gait training without an assistive device. No loss of balance. Cues provided to slowly down on turns for safety. $ Gait Training (18685) Billed Units: 1 unit Total Timed Code Treatment Minutes: 10 Total Treatment Time (minutes): 10 Please see discipline specific clinical documentation flowsheet for complete details for this therapy evaluation/treatment . SIGNATURE: ABIDA Mcfadden PATIENT NAME: Honey Montes DATE: September 04, 2020 TIME: 11:30 AM This PT was involved with session. I reviewed and agree with the documentation corresponding to this therapy visit. SIGNATURE: V[place]a [place], PT DATE: September 04, 2020 TIME: 11:49 AM Normal [facility] Basic Metabolic Panlon 09-03 Anion gap [Moles/Vol] 7 mmol/L Low - [facility] Comment on above: Performed By: #### C YAZMIN JOHNSON, PHOS, MG1 #### [facility] [address] [place] [address] Calcium [Mass/Vol] 8.8 mg/dL Normal 8.5-10.5 [facility] Comment on above: Performed By: #### C YAZMIN JOHNSON, PHOS, MG1 #### [place] [address] Chloride [Moles/Vol] 101 mmol/L Normal 98-110 [facility] Comment on above: Performed By: #### C BC, BMP, PHOS, MG1 #### [place] [address] CO2 [Moles/Vol] 30 mmol/L Normal 23-32 [facility] Comment on above: Performed By: #### C BC, BMP, PHOS, MG1 #### [place] [address] Creatinine [Mass/Vol] 0.62 mg/dL Low 0.70-1.[address] [facility] Comment on above: Performed By: #### C BC, BMP, PHOS, MG1 #### [place] [address] eGFR- Amer. >60 Normal >60 [facility] Comment on above: Performed By: #### C BC, BMP, PHOS, MG1 #### [place] [address] eGFR-All Other Races >60 Normal >60 [facility] Comment on above: Performed By: #### C BC, BMP, PHOS, MG1 #### [place] [address] Glucose [Mass/Vol] 85 mg/dL Normal 65-100 [facility] Comment on above: Performed By: #### C BC, BMP, PHOS, MG1 #### [place] [address] Potassium [Moles/Vol] 4.2 mmol/L Normal 3.5-5.[address] [facility] Comment on above: Performed By: #### C BC, BMP, PHOS, MG1 #### [place] [address] Sodium [Moles/Vol] 138 mmol/L Normal 132-148 [facility] Comment on above: Performed By: #### C BC, BMP, PHOS, MG1 #### [place] [phone] Urea nitrogen [Mass/Vol] 4 mg/dL Low 8-25 [facility] Comment on above: Performed By: #### C BC, BMP, PHOS, MG1 #### [place] [id number] CBCon 09-03-2020 Absolute nRBC <0.01 Normal <0.01 [facility] Comment on above: Performed By: #### C BC, BMP, PHOS, MG1 #### [address] Erythrocyte distribution width (RBC) [Ratio] 14.5 % Normal 11.5-15.0 [facility] Comment on above: Performed By: #### C BC, BMP, PHOS, MG1 #### [place] [phone] Hematocrit (Bld) [Volume fraction] 31.1 % Low 36.0-46.0 [facility] Comment on above: Performed By: #### C BC, BMP, PHOS, MG1 #### [place] [phone] Hemoglobin (Bld) [Mass/Vol] 10.4 g/dL Low 11.5-15.5 [facility] Comment on above: Performed By: #### C BC, BMP, PHOS, MG1 #### [place] [phone] MCH 30.0 pG Normal 26.0-34.0 [facility] Comment on above: Performed By: #### C BC, BMP, PHOS, MG1 #### [place] [phone] MCHC (RBC) [Mass/Vol] 33.4 g/dL Normal 30.5-36.[address] [facility] Comment on above: Performed By: #### C BC, BMP, PHOS, MG1 #### [place] [phone] MCV (RBC) [Entitic vol] 89.6 fL Normal 80.0-100.0 [facility] Comment on above: Performed By: #### C BC, BMP, PHOS, MG1 #### [place] [phone] Platelet mean volume (Bld) [Entitic vol] 10.7 fL Normal 9.0-12.7 [facility] Comment on above: Performed By: #### C BC, BMP, PHOS, MG1 #### [place] [phone] Platelets (Bld) [#/Vol] 218 10*3/uL Normal 150-400 [facility] Comment on above: Performed By: #### C BC, BMP, PHOS, MG1 #### [place] [phone] RBC (Bld) [#/Vol] 3.47 10*6/uL Low 3.90-5.20 [facility] Comment on above: Performed By: #### C BC, BMP, PHOS, MG1 #### [place] [phone] WBC (Bld) [#/Vol] 10.24 10*3/uL Normal 3.70-11.00 [facility] Comment on above: Performed By: #### C BC, BMP, PHOS, MG1 #### [place] [address] CONSULT PROGon 09-03-2020 CONSULT PROG HNO ID: [id number] Author: Nancy Perez Service: Pain Management Author Type: Physician Registration Specialist Type: Consult Progress Note Filed: 09/03/2020 9:08 AM Note Text: PERIPHERAL NERVE CATHETER PROGRESS NOTE PATIENT NAME: Honey Montes SERVICE DATE: 09/03/2020 SERVICE TIME: 8:30 ASSESSMENT Honey Montes is a 60 year old female with pmhx: anxiety, CAD, DM, HTN,HLP, mesenteric mass who is now POD# 3, S/P Exploratory laparotomy, excision of mesenteric mass involving D4 and proximal jejunum, resection of JJ, creation of DJ and new JJ with 40 cm BP limb, cholecystectomy. She has paravertebral nerve catheters placed for post-op pain control. Ms. Montes is OOB to chair, talking to her daughter, in good spirits. She reports the PV are leaking and reports she is having a lot of abdominal pain today. She rates her pain at a 9/10 and reports it ranges from 7-10/10. However, she does not appear in severe pain during the interview. She also reports intermittent sharp, shooting stabbing pains throughout the abdomen, but cannot identify any reason they occur. Bilateral PV sites without signs or symptoms of infection, no erythema, tenderness, drainage, or warmth. She is clear liquid diet, on fentanyl CARROT TIER 0/20/10/6 last 24 hrs bolus utilized (1760 mcg) PLAN 1. Hold one of the PV's as there is leakage. 2. Continue Fentanyl IVPCA at this time given reported increased pain and not yet passing gas. Will consider transition to oral medication later today or tomorrow. 3. Will return later to re-evaluate. SUBJECTIVE CHIEF COMPLAINT: Post operative pain PRIMARY SERVICE: General Surgery INTERVAL HPI: Honey Montes is a 60 year old female who is POD# 3 Exploratory laparotomy, excision of mesenteric mass involving D4 and proximal jejunum, resection of JJ, creation of DJ and new JJ with 40 cm BP limb, cholecystectomy. She has bilateral T8 paravertebral nerve catheters placed for post-op pain control. Pain level is 9 at rest She reports the pain ranges from 7-10/10 Pain at surgical site? Yes, abdomen Character: sharp, stabbing, and shooting pain Duration: consistent with intermittent spike in pain Relieved: Improved with medications and PVC Is patient satisfied with pain control: No Overnight Events: PVC leaking Overnight Pain Interventions: No Allergy: ALLERGIES No Known Allergies MEDICATIONS: I have interrogated the multi therapy pump for the correct settings and solution: Yes. Solution Ropivacaine 0.2%, rate 0/8/30/2 ml/hr. Adjuvant Pain Medication: See below. Current Facility-Administere d Medications Medication Dose Route Frequency - ropivacaine nerve block 0.2% (2 mg/mL) - 200 mL PERIPHERAL NERVE CATHETER CONTINUOUS - ropivacaine nerve block 0.2% (2 mg/mL) - 200 mL PERIPHERAL NERVE CATHETER CONTINUOUS - metoprolol 5 mg injection (LOPRESSOR) 5 mg INTRAVENOUS q 6 HR - famotidine 20 mg injection (PEPCID) 20 mg INTRAVENOUS BID - dextrose 40 % 15 g 15 g ORAL PRN Or - glucagon 1 mg injection 1 mg INTRAMUSCULAR PRN Or - dextrose 50% in water 25 mL syringe 12.5 g INTRAVENOUS PRN - heparin 5,000 Units injection 5,000 Units SUBCUTANEOUS q 8 H - ondansetron 4 mg tab(s) (ZOFRAN) 4 mg ORAL q 6 H PRN Or - ondansetron (PF) 4 mg injection (ZOFRAN) 4 mg INTRAVENOUS q 6 H PRN - insulin lispro injection (rapid acting) (HumaLOG) SUBCUTANEOUS q 6 H - acetaminophen 650 mg CUP (TYLENOL) 650 mg ORAL q 6 H - diclofenac 1.3 % 1 Patch (FLECTOR) 1 Patch TRANSDERMAL BID And - diclofenac - REMOVE PATCH OTHER BID And - diclofenac - VERIFY PATCH OTHER q 8 H - lidocaine 4 % 2 Patch (SALONPAS) 2 Patch TRANSDERMAL DAILY And - lidocaine patch - REMOVE OTHER AT BEDTIME And - lidocaine - VERIFY PATCH OTHER q 8 H - ALPRAZolam 0.5 mg tab(s) (XANAX) 0.5 mg ORAL TID PRN - gabapentin 600 mg oral liquid (NEURONTIN) 600 mg ORAL TID - fentaNYL CARROT TIER 20 mcg/mL in NaCl 0.9% 100 mL INTRAVENOUS CONTINUOUS - dextrose 5% in NaCl 0.45% with 20 mEq/L KCl iv infusion 75 mL/hr INTRAVENOUS CONTINUOUS OBJECTIVE: PHYSICAL EXAM: No data found. Affect: awake and alert General Impression: appears comfortable Catheter site is wet, clean, non-tender and dressing intact. Respiratory Exam: Respirations: Breathing appears normal Thoracostomy tube?: No Gastrointestinal Exam: Abdomen: diffuse tenderness with palpation. [place] in place midline. Drain in place. NG?: No DATA: Component Latest Ref Rng AND Units 09/03/2020 WBC 3.70 - 11.00 k/uL 10.24 RBC 3.90 - 5.20 m/uL 3.47 (L) Hemoglobin 11.5 - 15.5 g/dL 10.4 (L) Hematocrit 36.0 - 46.0 % 31.1 (L) MCV 80.0 - 100.0 fL 89.6 MCH 26.0 - 34.0 pG 30.0 MCHC 30.5 - 36.0 g/dL 33.4 RDW-CV 11.5 - 15.0 % 14.5 Platelet Count 150 - 400 k/uL 218 MPV 9.0 - 12.7 fL 10.7 Absolute nRBC <0.01 k/uL <0.01 Component Latest Ref Rng AND Units 09/03/2020 Glucose 65 - 100 mg/dL 85 BUN 8 - 25 mg/dL 4 (L) Creatinin (more content not included)... Normal [facility] Magnesiumon 09-03-2020 Magnesium [Mass/Vol] 1.6 mg/dL Low 1.7-2.6 [facility] Comment on above: Performed By: #### C BC, BMP, PHOS, MG1 #### [facility] [address] [place] [address] NURSING PROGon 09-03-2020 NURSING PROG HNO ID: [id number] Author: Philly (Rn) KVNG Grossman Service: Nursing Author Type: Registered Nurse Type: Nursing Progress Note Filed: 09/03/2020 4:08 PM Note Text: Nursing Progress Note Patient Name: Honey Montes Patient Location: [place] [address] Daily Note: 1100: Spoke with Emelia Loo (res): orders to discontinue continuous pulse ox, Full liquid diet, and IVF at O. 1230: order for continuous pulse ox, re-ordered. Placed on patient. SaO2 100% on RA. And HR 75 at bpm. Pt ate 100% of Full liquid diet try. 1317: Paged [place] Team Re: mag level 1.6 this Am. 1400: Patient voiced that she is now passing gas. 1608: Orders Received for mag 4gm IVP This note was completed by: Philly Grossman RN Normal [facility] Phosphoruson 09-03-2020 Phosphate [Mass/Vol] 3.4 mg/dL Normal 2.5-4.5 [facility] Comment on above: Performed By: #### C BC, BMP, PHOS, MG1 #### [facility] [address] [place] [address] THERAPY NTon 09-03-2020 THERAPY NT HNO ID: [id number] Author: Windy (Ot) Gabriela Service: Occupational Therapy Author Type: Occupational Therapist Type: Therapy (PT/OT/Speech/Resp) Filed: 09/03/2020 10:31 AM Note Text: OCCUPATIONAL THERAPY MISSED VISIT SERVICE DATE: 09/03/2020 SERVICE TIME: 1021 to 1021 ROOM: [place] [address] Attempted Treatment. Patient not seen due to Declined(Pt just ambulated unit with her Dtr, and requesting a rest.). Will continue to monitor the Pt, and see as able. SIGNATURE: Windy Ochoa, OTR/L PATIENT NAME: Honey Montes DATE: September 03, 2020 TIME: 10:31 AM Normal [facility] Basic Metabolic Panlon 09-02 Anion gap [Moles/Vol] 9 mmol/L Normal 07-[address] [facility] Comment on above: Performed By: #### C BC, BMP, PHOS, MG1 #### [facility] [address] [place] [address] Calcium [Mass/Vol] 8.7 mg/dL Normal 8.5-10.5 [facility] Comment on above: Performed By: #### C BC, BMP, PHOS, MG1 #### [facility] [address] [place] [address] Chloride [Moles/Vol] 101 mmol/L Normal 98-110 [facility] Comment on above: Performed By: #### C BC, BMP, PHOS, MG1 #### [facility] [address] [place] [address] CO2 [Moles/Vol] 26 mmol/L Normal 23-32 [facility] Comment on above: Performed By: #### C BC, BMP, PHOS, MG1 #### [place] [phone] Creatinine [Mass/Vol] 0.55 mg/dL Low 0.70-1.[address] [facility] Comment on above: Performed By: #### C BC, BMP, PHOS, MG1 #### [place] [phone] eGFR- Amer. >60 Normal >60 [facility] Comment on above: Performed By: #### C BC, BMP, PHOS, MG1 #### [place] [phone] eGFR-All Other Races >60 Normal >60 [facility] Comment on above: Performed By: #### C BC, BMP, PHOS, MG1 #### [place] [phone] Glucose [Mass/Vol] 80 mg/dL Normal 65-100 [facility] Comment on above: Performed By: #### C BC, BMP, PHOS, MG1 #### [place] [phone] Potassium [Moles/Vol] 4.2 mmol/L Normal 3.5-5.[address] [facility] Comment on above: Performed By: #### C BC, BMP, PHOS, MG1 #### [place] [phone] Sodium [Moles/Vol] 136 mmol/L Normal 132-148 [facility] Comment on above: Performed By: #### C BC, BMP, PHOS, MG1 #### [place] [phone] Urea nitrogen [Mass/Vol] 5 mg/dL Low 8-25 [facility] Comment on above: Performed By: #### C BC, BMP, PHOS, MG1 #### [place] [phone] CBC and Differentialon 09-02 Abs Baso 0.05 k/uL Normal <0.11 [facility] Comment on above: Performed By: #### C BC, BMP, PHOS, MG1 #### [place] [phone] Abs Eosin <0.03 Normal <0.46 [facility] Comment on above: Performed By: #### C BC, BMP, PHOS, MG1 #### [place] [phone] Abs Boyd 0.78 k/uL Normal <0.87 [facility] Comment on above: Performed By: #### C BC, BMP, PHOS, MG1 #### [place] [phone] Abs Neut 13.60 k/uL High 1.45-7.50 [facility] Comment on above: Performed By: #### C BC, BMP, PHOS, MG1 #### [place] [phone] Absolute nRBC <0.01 Normal <0.01 [facility] Comment on above: Performed By: #### C BC, BMP, PHOS, MG1 #### [place] [phone] Basophils/100 WBC (Bld) 0.3 % Normal [facility] Comment on above: Performed By: #### C BC, BMP, PHOS, MG1 #### [place] [phone] DTYPE Auto Diff Normal [facility] Comment on above: Performed By: #### C BC, BMP, PHOS, MG1 #### [place] [phone] Eosinophils/100 WBC (Bld) 0.1 % Normal [facility] Comment on above: Performed By: #### C BC, BMP, PHOS, MG1 #### [place] [phone] Erythrocyte distribution width (RBC) [Ratio] 14.6 % Normal 11.5-15.0 [facility] Comment on above: Performed By: #### C BC, BMP, PHOS, MG1 #### [place] [phone] Hematocrit (Bld) [Volume fraction] 32.7 % Low 36.0-46.0 [facility] Comment on above: Performed By: #### C BC, BMP, PHOS, MG1 #### [place] [phone] Hemoglobin (Bld) [Mass/Vol] 10.9 g/dL Low 11.5-15.5 [facility] Comment on above: Performed By: #### C BC, BMP, PHOS, MG1 #### [place] [phone] Lymphocytes (Bld) [#/Vol] 1.54 10*3/uL Normal 1.00-4.0 0 [facility] Comment on above: Performed By: #### C BC, BMP, PHOS, MG1 #### [place] [phone] Lymphocytes/100 WBC (Bld) 9.6 % Normal [facility] Comment on above: Performed By: #### C BC, BMP, PHOS, MG1 #### [phone] MCH 29.8 pG Normal 26.0-34.0 [facility] Comment on above: Performed By: #### C BC, BMP, PHOS, MG1 #### [phone] MCHC (RBC) [Mass/Vol] 33.3 g/dL Normal 30.5-36.[address] [facility] Comment on above: Performed By: #### C BC, BMP, PHOS, MG1 #### [place] [phone] MCV (RBC) [Entitic vol] 89.3 fL Normal 80.0-100.0 [facility] Comment on above: Performed By: #### C BC, BMP, PHOS, MG1 #### [place] [address] Monocytes/100 WBC (Bld) 4.9 % Normal [facility] Comment on above: Performed By: #### C BC, BMP, PHOS, MG1 #### [place] [phone] Neutrophils/100 WBC (Bld) 85.1 % Normal [facility] Comment on above: Performed By: #### C BC, BMP, PHOS, MG1 #### [place] [phone] NRBCs 0.0 /100 WBC Normal 0 [facility] Comment on above: Performed By: #### C BC, BMP, PHOS, MG1 #### [place] [phone] Platelet mean volume (Bld) [Entitic vol] 10.2 fL Normal 9.0-12.7 [facility] Comment on above: Performed By: #### C BC, BMP, PHOS, MG1 #### [place] [address] Platelets (Bld) [#/Vol] 220 10*3/uL Normal 150-400 [facility] Comment on above: Performed By: #### C BC, BMP, PHOS, MG1 #### [place] [address] RBC (Bld) [#/Vol] 3.66 10*6/uL Low 3.90-5.20 [facility] Comment on above: Performed By: #### C BC, BMP, PHOS, MG1 #### [place] [address] WBC (Bld) [#/Vol] 15.98 10*3/uL High 3.70-11.00 [facility] Comment on above: Performed By: #### C BC, BMP, PHOS, MG1 #### [place] [id number] [place] [address] CONSULT PROGon 09-02-2020 CONSULT PROG HNO ID: [id number] Author: Haleigh Robles) Kevin Case Service: Pain Management Author Type: Nurse Practitioner Type: Consult Progress Note Filed: 09/02/2020 1:18 PM Note Text: PERIPHERAL NERVE CATHETER PROGRESS NOTE PATIENT NAME: Honey Montes SERVICE DATE: 09/02/2020 SERVICE TIME: 8:02 AM ASSESSMENT Honey Montes is a 60 year old female with pmhx: anxiety, CAD, DM, HTN,HLP, mesenteric mass who is now POD# 2, S/P Exploratory laparotomy, excision of mesenteric mass involving D4 and proximal jejunum, resection of JJ, creation of DJ and new JJ with 40 cm BP limb, cholecystectomy. Ms. Montes is OOB to chair, talking to her daughter, in good spirits, she reports much improved abdominal pain Bilateral PV sites without signs or symptoms of infection, no erythema, tenderness, drainage, or warmth. She is on liq diet, on fentanyl CARROT TIER 0/07/21 last 4 hrs bolus utilized PDMP website checked and validated. Total Rx 93, from 11 prescribers, from 10 pharmacies 09/01/2020 by Haleigh Case, [email or web address] PLAN/Recs: 1. Continue PV X 2 at 0//2 2. Continue Acetaminophen 650 mg PO Q 6 h 3. Started home Gabapentin 300 mg TID yesterday, tolerating well 4. Continue Xanax 0.2 PO TID PRN 5. Continue Flector patch to R shoulder BID 6. Dilaudid CARROT TIER d/c yesterday and Fentanyl CARROT TIER ordered with improved pain relief, if pain tolerating PO likely will transition CARROT TIER to PO pain regimen tomorrow The plan was discussed in detail with patient +/- family, bedside RN, [facility] staff and primary service, who expressed agreement, understanding and comfort with the plan. Thank you for including us in her care. Please call us with any questions or concerns. [facility] will continue to follow. SUBJECTIVE CHIEF COMPLAINT: Post op pain PRIMARY SERVICE: General Surgery INTERVAL HPI: Honey Montes is a 60 year old female who is POD# 2 Exploratory laparotomy, excision of mesenteric mass involving D4 and proximal jejunum, resection of JJ, creation of DJ and new JJ with 40 cm BP limb, cholecystectomy Pain level is 2 at rest 8 with ambulation on a scale of 0-10. Is the patient tolerating Physical Therapy?: Yes Pain at surgical site? Yes, abd Character: severe and sharp Duration: consistent Radiation: No Relieved: No Is patient satisfied with pain control: at times Overnight Events: None Overnight Pain Interventions: No Allergy: ALLERGIES No Known Allergies MEDICATIONS: I have interrogated the multi therapy pump for the correct settings and solution: Yes. Solution Ropivacaine 0.2%, rate 0/8/30/2 ml/hr. Adjuvant Pain Medication: See below. Current Facility-Administere d Medications Medication Dose Route Frequency - ropivacaine nerve block 0.2% (2 mg/mL) - 200 mL PERIPHERAL NERVE CATHETER CONTINUOUS - ropivacaine nerve block 0.2% (2 mg/mL) - 200 mL PERIPHERAL NERVE CATHETER CONTINUOUS - metoprolol 5 mg injection (LOPRESSOR) 5 mg INTRAVENOUS q 6 HR - famotidine 20 mg injection (PEPCID) 20 mg INTRAVENOUS BID - dextrose 40 % 15 g 15 g ORAL PRN Or - glucagon 1 mg injection 1 mg INTRAMUSCULAR PRN Or - dextrose 50% in water 25 mL syringe 12.5 g INTRAVENOUS PRN - heparin 5,000 Units injection 5,000 Units SUBCUTANEOUS q 8 H - ondansetron 4 mg tab(s) (ZOFRAN) 4 mg ORAL q 6 H PRN Or - ondansetron (PF) 4 mg injection (ZOFRAN) 4 mg INTRAVENOUS q 6 H PRN - insulin lispro injection (rapid acting) (HumaLOG) SUBCUTANEOUS q 6 H - acetaminophen 650 mg CUP (TYLENOL) 650 mg ORAL q 6 H - diclofenac 1.3 % 1 Patch (FLECTOR) 1 Patch TRANSDERMAL BID And - diclofenac - REMOVE PATCH OTHER BID And - diclofenac - VERIFY PATCH OTHER q 8 H - lidocaine 4 % 2 Patch (SALONPAS) 2 Patch TRANSDERMAL DAILY And - lidocaine patch - REMOVE OTHER AT BEDTIME And - lidocaine - VERIFY PATCH OTHER q 8 H - ALPRAZolam 0.5 mg tab(s) (XANAX) 0.5 mg ORAL TID PRN - gabapentin 600 mg oral liquid (NEURONTIN) 600 mg ORAL TID - fentaNYL CARROT TIER 20 mcg/mL in NaCl 0.9% 100 mL INTRAVENOUS CONTINUOUS - dextrose 5% in NaCl 0.45% with 20 mEq/L KCl iv infusion 75 mL/hr INTRAVENOUS CONTINUOUS OBJECTIVE: PHYSICAL EXAM: BP 93/50 Pulse 85 Temp 37.1 ?C (98.8 ?F) (Oral) Resp 16 Ht 165 cm (5' 4.96 ) Wt 51.8 kg (114 lb 4.8 oz) SpO2 95% BMI 19.04 kg/m? Affect: awake, alert and oriented, OOB to chair General Impression: appears comfortable Catheter site is clean, non-tender and dressing intact. Sensory exam: Surgical limb: ABD Respiratory Exam: Respirations: Breathing appears normal Thoracostomy tube?: No Gastrointestinal Exam: Abdomen: soft, incision with c/d/i dressing in place NG?: No DATA: Lab Results Component Latest Ref Rng AND Units 09/02/2020 Glucose 65 - 100 mg/dL 80 BUN 8 - 25 mg/dL 5 (L) Creatinine 0.70 - 1.40 mg/dL 0.55 (L) Sodium 132 - 148 mmol/L 136 Potassium 3.5 - 5.0 mmol/L 4.2 Chloride 98 - 110 mmol/L 101 CO2 23 - 32 mmol/L 26 Anion Ga (more content not included)... Normal [facility] Magnesiumon 09-02-2020 Magnesium [Mass/Vol] 1.7 mg/dL Normal 1.7-2.6 [facility] Comment on above: Result Comment: Revi ewed Performed By: #### C BC, BMP, PHOS, MG1 #### [facility] [address] [place] [address] NURSING PROGon 09-02-2020 NURSING PROG HNO ID: [id number] Author: Gene Palmer (Rn) KVNG Cortez Service: ? Author Type: Registered Nurse Type: Nursing Progress Note Filed: 09/02/2020 5:02 PM Note Text: Nursing Progress Note Patient Name: [facility] Mont[id number] Note:Assisted pt to the restroom and it was noted that pt's nerve blocks are leaking. Stopped infusion and text page to CHARO Ricardo to make aware. Pt ambulating w/ one assist. Lungs clear and encouraging use of incentive spirometer. Abdomen soft and tender. Bowel sounds hypoactive. Midline incision SOAKER w/ glue. Pt voiding clear, yellow urine. Denies any nausea/vomiting since removal of NGT. Safety maintained. 1645: Pt tolerating CLD. No nausea/vomiting at this time. Appears to be resting comfortably sitting up in the chair. Vital signs stable. Pt rating pain 7-8/10. Encouraged use of CARROT TIER pump. Safety maintained. This note was completed by: Gene Cortez RN Normal [facility] Phosphoruson 09-02-2020 Phosphate [Mass/Vol] 3.8 mg/dL Normal 2.5-4.5 [facility] Comment on above: Performed By: #### C BC, BMP, PHOS, MG1 #### [facility] [address] [place] [address] THERAPY NTon 09-02-2020 THERAPY NT HNO ID: [id number] Author: Vinita (Pt) Jenna Service: Physical Therapy Author Type: Physical Therapist Type: Therapy (PT/OT/Speech/Resp) Filed: 09/02/2020 11:20 AM Note Text: Physical Therapy Treatment SERVICE DATE: 09/02/2020 SERVICE TIME: 947 to 1013 ROOM: [place] [address] Recommended Discharge Disposition: Home PT Anticipated Discharge Needs: Physical Assist at Home Physical Assist at Home for: Cleaning;Laundry;Ellyn ls;Shopping;Transpor tation Recommended Discharge Equipment: To Be Determined PT 6 Clicks Score: 20 Precautions/Activity Restrictions: Abdominal;Fall Risk;Lines/Tubes/Nataly ins Precaution/Activity Restriction Comments: abdominal precautions Isolation Type: None Current Hospital Course: Neuroendocrine Mass, S/P Exp lap, Excision Mass, resection Of JJ, Creation New JJ, Lilia, Refer to Epic Reason for Hospital Admission: Neuroendocrine Mass, refer to [facility] Relevant Past Medical History: NSTEMI, Anxiety Disorder, DM II, Smoker, Breast CA, refer to [facility] Physical Therapy Problem List: Pain;Functional Mobility Impairment;Balance Impaired;Safety Deficits;Decreased Strength Treatment Interventions: Education;Functional Mobility Training;Balance Training;Strengtheni ng Home Environment Patient Lives With: Spouse;Other: See Comment(daughter staying to help ) Assistance Available: PRN(daughter available) Entry To Home: No Stairs Number Of Stairs Into Home: 0 Number Of Stairs To Bed/Bath: 0 Tub/Shower Type: Tub/Shower and Walk-in Shower Laundry: 1st floor; patient completes Equipment Owned: Hand Held Shower;Grab Bars-Shower;Shower Chair;Cane;Lift Chair;Elevated Toilet Seat Prior Functional Level: Within Functional Limits Prior Functional Level Comments: Pt reports being independent with all ADLs; Pt drives; Pt ambulates without an assistive device CURRENT FUNCTIONAL STATUS: Most recent performance Current Functional Mobility Assist Level Additional Information Rolling Stand By Assistance Supine to Sit Stand By Assistance Sit to Supine Scooting Modified Independent Sit to Stand Contact Guard Assistance Stand to Sit Contact Guard Assistance Bed to Chair Toilet/Commode Gait Contact Guard Assistance Gait Device: Wheeled Walker Gait Distance (feet): 230' Stairs Curb Step Car Transfer Blank ibarra indicate activity not attempted General Deviations/Observati ons: Flexed trunk posture;Step length decreased Balance: Dynamic Standing Dynamic Standing Balance: Fair Patient accepts minimal challenge, able to maintain balance while turning head/trunk Activity Tolerance: Standing Activity Standing Activity: [id number]; static standing balance; gait training with ww Standing Activity Tolerance (in minutes): 6 JH-HLM: 7: Walk 25 feet or more Learning/Educational Needs: Discharge Plan;Functional Activities/Mobility; Plan of Care;Safety;Precauti ons Goals for Plan of Care: Patient /Caregiver Goals: Go Home Goals: Patient will demonstrate understanding of importance of mobility during hospital stay and resolve all functional needs identified.;Patient will demonstrate progress with functional mobility to allow safe discharge to home with available support and/or physical assistance.;Patient will demonstrate progress to optimize functional mobility, maximize activity tolerance and endurance to maximize function upon discharge. Able to perform HEP with: Independent Rolling with: Modified Independent Transfer supine to/from sit with: Supervision Transfer sit to/from stand with: Stand By Assistance Ambulate with: Stand By Assistance Distance: 150' Device: Wheeled Walker Progress Toward Goals: Progressing as expected Rehab Potential: Good Patient will be discontinued from Physical Therapy when no further skilled needs are identified in this setting. PLAN: Treatment Frequency (times per week): 3 Current admission Plan of Care developed with: Patient;Family(ryanne tovar) TREATMENT INTERVENTIONS: Therapy Diagnosis: Reduced mobility-other Interventions Provided: Gait Training (27477);Therapeutic Exercise (95504) Therapeutic Exercise (98512) Treatment Minutes: 17 Supine LE exercises performed and handout of supine LE exercises provided and reviewed with the patient. Education provided on importance of exercises. Reviewed abdominal precautions with the patient. $ Therapeutic Exercise (50737) Billed Units: 1 unit Gait Training (84652) Treatment Minutes: 9 Bed mobility performed with cues provided for correct sequencing. Gait training with ww. No loss of balance. $ Gait Training (54674) Billed Units: 1 unit Total Timed Code Treatment Minutes: 26 Total Treatment Time (minutes): 26 Please see discipline specific clinical documentation flowsheet for complete details for this therapy evaluation/treatment . SIGNATURE: Araceli Dotson, SPT PATIENT NAME: Honey Montes DATE: September 02, 2020 TIME: 11:10 AM This PT was present fo (more content not included)... Normal [facility] Basic Metabolic Panlon 09-01 Anion gap [Moles/Vol] 11 mmol/L Normal - [facility] Comment on above: Performed By: #### P HOS, BMP, MG1, CBCDIF ####[facility] [place], [place] [phone] Calcium [Mass/Vol] 8.8 mg/dL Normal 8.5-10.5 [facility] Comment on above: Performed By: #### P HOS, BMP, MG1, CBCDIF ####[place] [id number] [place], [place] [phone] Chloride [Moles/Vol] 99 mmol/L Normal 98-110 [facility] Comment on above: Performed By: #### P HOS, BMP, MG1, CBCDIF ####[address] [phone] CO2 [Moles/Vol] 24 mmol/L Normal 23-32 [facility] Comment on above: Performed By: #### P HOS, BMP, MG1, CBCDIF ####[place] [phone] Creatinine [Mass/Vol] 0.47 mg/dL Low 0.70-1.[address] [facility] Comment on above: Performed By: #### P HOS, BMP, MG1, CBCDIF ####[place] [phone] eGFR- Amer. >60 Normal >60 [facility] Comment on above: Performed By: #### P HOS, BMP, MG1, CBCDIF ####[place] [phone] eGFR-All Other Races >60 Normal >60 [facility] Comment on above: Performed By: #### P HOS, BMP, MG1, CBCDIF ####[place] [phone] Glucose [Mass/Vol] 152 mg/dL High 65-100 [facility] Comment on above: Performed By: #### P HOS, BMP, MG1, CBCDIF ####[place] [phone] Potassium [Moles/Vol] 3.7 mmol/L Normal 3.5-5.[address] [facility] Comment on above: Performed By: #### P HOS, BMP, MG1, CBCDIF ####[place] [phone] Sodium [Moles/Vol] 134 mmol/L Normal 132-148 [facility] Comment on above: Performed By: #### P HOS, BMP, MG1, CBCDIF ####[place] [phone] Urea nitrogen [Mass/Vol] 7 mg/dL Low 8-25 [facility] Comment on above: Performed By: #### P HOS, BMP, MG1, CBCDIF ####[facility] [place], [place] [phone] CASE MGT INIT Rodger 2019 CASE MGT INIT ROSAMARIA HNO ID: [id number] Author: Víctor Hadley (Rn) KVNG Cyr Service: ? Author Type: Registered Nurse Type: Care Mgt Initial Assessment Filed: 09/01/2020 1:36 PM Note Text: CARE MANAGEMENT: ASSESSMENT AND DISCHARGE PLAN SERVICE DATE: September 01, 2020 SERVICE TIME: 1:30 PM PRIMARY CARE PHYSICIAN: Pt lorena Cook MD----[phone] ADMISSION STATUS: Inpatient Needs Prior to Discharge: Home Care Order MEDICAL: 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 Last discharge within 30 days: No Advance Directive: Current Advance Directive: Health Care Power of Peanut Cleaner;Living Will In Chart: No Rug Setter [place] Attempted to Assist with AD Completion: Yes Action: Education Provided Health LiteracyHow often do you need to have someone help you when you read instructions, pamphlets, or other written material from your doctor or pharmacy? : 3 - Sometimes How confident are you filling out medical forms by yourself?: 3 - Somewhat If Patient scores > 3 on either question, the following interventions were put into place:: Use of plain language and active listening with Patient and family;Use concrete and specific phrases, avoid medical jargon;Forms of communication used with patient and family;Gave Patient the opportunity to ask questions Baseline Mental Status Prior to this Illness what was the patient's Baseline Mental Status?: Alert Prior to this illness, has anyone described the patient having any of the following behaviors?: Not Applicable Relationship of the informant to the patient:: Self Functional Status: Independent Does Patient Currently Receive Any Community Services or Home Care?: None Equipment Prior to Admission: None SOCIAL: Living Arrangements: Home Lives With: Spouse Financial Resources: Unemployed Primary Contact: Extended Emergency Contact Information Primary Emergency Contact: Thai Barker Mobile Relation: Daughter Secondary Emergency Contact: Dulce Wilkes Mobile Relation: Daughter Supportive Patient Contact:: Yes Contact Resources: Family Family Name/Phone: dtr/gregoria---lucero Social Needs Food insecurity Worry: Never true Inability: Never true Resources Needed: No Social Needs Financial resource strain: Not very hard Social Needs Transportation needs Medical: No Non-medical: No Caregiver AssessmentCaregiver is ready, willing and able to meet the patient's needs as recommended by the inter-professional team:: Yes Does the patient have an acute stroke diagnosis, or has the patient had a stroke during this admission?: No Patient's transition needs and plan for meeting these needs: home w/ and HC Patient's perception of need for this admission: surgery Medication Adherance I am convinced of the importance of my prescription medication: 0 - Agree Mostly I worry that my prescription medication will do more harm than good to me : 0 - Disagree Mostly I feel financially burdened by my upo-ee-[id number] expenses for my prescription medication:: 0 - Disagree Mostly Risk Score: 0 Patient is categorized as: Low risk < 2 Are you interested in bedside delivery of your medications? No Is Patient Psychosocially Complex?: No ASSESSMENT AND PLAN: Medical Needs: Medical Needs: Wound Care - active or potential;Fall risk or frequent falls;Two or more chronic diseases Psychosocial Needs: Psychosocial Needs: None FREEDOM OF CHOICE EXPLAINED: [place] of Choice Given: Yes Level of Care Discussed: Home Care Financial Disclosure Provided: Yes Financial Disclosure Comments: careport Provider List: Home Care Provider list within the patient's requested geographic area shared with the patient/family: Yes within: 10 miles of [facility] code: 77069 Quality and resource use metrics shared with the patient that are relevant to the patient's goals of care and treatment preferences:: Yes Metrics: Skin Integrity;Potentiall y Preventable 30-day Post Discharge Readmission Rates POTENTIAL TRANSITION PLANS Home Care;Home OT/PT IPTA, lives with who is disabled . Pt states her daughter Lucero is her HCPOA and provides support. No food or medication insecurities. S/P resection and cholecystectomy. PT/OT recommend HC and she is agreeable. She has no preference as long as they are in-network with insurance. [facility] can accept but will need HC order to follow through. CM to follow for needs. SIGNATURE: Víctor Cyr RN PATIENT NAME: Honey Montes DATE: September 01, 2020 (more content not included)... Normal [facility] CBC and Differentialon 09-01 Abs Baso 0.00 k/uL Normal <0.11 [facility] Comment on above: Performed By: #### C MP, MG1, PHOS, CBCDIF ####[address] Abs Boyd 0.63 k/uL Normal <0.87 [facility] Comment on above: Performed By: #### C MP, MG1, PHOS, CBCDIF ####[place] [phone] Abs Neut 19.45 k/uL High 1.45-7.50 [facility] Comment on above: Performed By: #### C MP, MG1, PHOS, CBCDIF ####[place] [phone] ANC(includeSEG+BAND) 19.45 k/uL Normal [facility] Comment on above: Performed By: #### C MP, MG1, PHOS, CBCDIF ####[place] [phone] Basophils/100 WBC (Bld) 0.0 % Normal [facility] Comment on above: Performed By: #### C MP, MG1, PHOS, CBCDIF ####[place] [phone] DTYPE Manual Diff Normal [facility] Comment on above: Performed By: #### C MP, MG1, PHOS, CBCDIF ####[place] [phone] Eosinophils (Bld) [#/Vol] 0.00 10*3/uL Normal <0.46 [facility] Comment on above: Performed By: #### C MP, MG1, PHOS, CBCDIF ####[place] [address] Eosinophils/100 WBC (Bld) 0.0 % Normal [facility] Comment on above: Performed By: #### C MP, MG1, PHOS, CBCDIF ####[place] [address] Erythrocyte distribution width (RBC) [Ratio] 14.4 % Normal 11.5-15.0 [facility] Comment on above: Performed By: #### C MP, MG1, PHOS, CBCDIF ####[place] [address] Hematocrit (Bld) [Volume fraction] 34.6 % Low 36.0-46.0 [facility] Comment on above: Performed By: #### C MP, MG1, PHOS, CBCDIF ####[place] [address] Hemoglobin (Bld) [Mass/Vol] 11.5 g/dL Normal 11.5-15.5 [facility] Comment on above: Performed By: #### C MP, MG1, PHOS, CBCDIF ####[place] [address] Left Shift Present Normal [facility] Comment on above: Performed By: #### C MP, MG1, PHOS, CBCDIF ####[place] [address] Lymphocytes (Bld) [#/Vol] 0.85 10*3/uL Low 1.00-4.0 0 [facility] Comment on above: Performed By: #### C MP, MG1, PHOS, CBCDIF ####[place] [id number] Lymphocytes/100 WBC (Bld) 4.0 % Normal [facility] Comment on above: Performed By: #### C MP, MG1, PHOS, CBCDIF ####[place] [id number] MCH 29.8 pG Normal 26.0-34.0 [facility] Comment on above: Performed By: #### C MP, MG1, PHOS, CBCDIF ####[place] [phone] MCHC (RBC) [Mass/Vol] 33.2 g/dL Normal 30.5-36.[address] [facility] Comment on above: Performed By: #### C MP, MG1, PHOS, CBCDIF ####[place] [phone] MCV (RBC) [Entitic vol] 89.6 fL Normal 80.0-100.0 [facility] Comment on above: Performed By: #### C MP, MG1, PHOS, CBCDIF ####[place] [phone] Metamyelocytes/100 WBC (Bld) 1.0 % Normal [facility] Comment on above: Performed By: #### C MP, MG1, PHOS, CBCDIF ####[place] [phone] Monocytes/100 WBC (Bld) 3.0 % Normal [facility] Comment on above: Performed By: #### C MP, MG1, PHOS, CBCDIF ####[place] [phone] Neutrophils/100 WBC (Bld) 92.0 % Normal [facility] Comment on above: Performed By: #### C MP, MG1, PHOS, CBCDIF ####[place] [phone] Platelet Estimate Platelet estimate adequate Normal [facility] Comment on above: Performed By: #### C MP, MG1, PHOS, CBCDIF ####[place] [phone] Platelet mean volume (Bld) [Entitic vol] 9.7 fL Normal 9.0-12.7 [facility] Comment on above: Performed By: #### C MP, MG1, PHOS, CBCDIF ####[place] [phone] Platelets (Bld) [#/Vol] 245 10*3/uL Normal 150-400 [facility] Comment on above: Performed By: #### C MP, MG1, PHOS, CBCDIF ####[place] [address] RBC (Bld) [#/Vol] 3.86 10*6/uL Low 3.90-5.20 [facility] Comment on above: Performed By: #### C MP, MG1, PHOS, CBCDIF ####[place] [address] Red Cell Morph SEE COMMENT Normal [facility] Comment on above: Result Comment: Unre markable Performed By: #### C MP, MG1, PHOS, CBCDIF ####[place] [address] WBC (Bld) [#/Vol] 21.14 10*3/uL High 3.70-11.00 [facility] Comment on above: Performed By: #### C MP, MG1, PHOS, CBCDIF ####[place] [address] Abs Baso 0.00 k/uL Normal <0.11 [facility] Comment on above: Performed By: #### C BC, BMP, PHOS, MG1 #### [place] [id number] Abs Boyd 0.89 k/uL High <0.87 [facility] Comment on above: Performed By: #### C BC, BMP, PHOS, MG1 #### [place] [phone] Abs Neut 15.70 k/uL High 1.45-7.50 [facility] Comment on above: Performed By: #### C BC, BMP, PHOS, MG1 #### [place] [phone] ANC(includeSEG+BAND) 15.70 k/uL Normal [facility] Comment on above: Performed By: #### C BC, BMP, PHOS, MG1 #### [place] [phone] Basophils/100 WBC (Bld) 0.0 % Normal [facility] Comment on above: Performed By: #### C BC, BMP, PHOS, MG1 #### [place] [phone] DTYPE Manual Diff Normal [facility] Comment on above: Performed By: #### C BC, BMP, PHOS, MG1 #### [place] [phone] Eosinophils (Bld) [#/Vol] 0.00 10*3/uL Normal <0.46 [facility] Comment on above: Performed By: #### C BC, BMP, PHOS, MG1 #### [place] [phone] Eosinophils/100 WBC (Bld) 0.0 % Normal [facility] Comment on above: Performed By: #### C BC, BMP, PHOS, MG1 #### [place] [phone] Erythrocyte distribution width (RBC) [Ratio] 14.6 % Normal 11.5-15.0 [facility] Comment on above: Performed By: #### C BC, BMP, PHOS, MG1 #### [place] [phone] Hematocrit (Bld) [Volume fraction] 41.6 % Normal 36.0-46.0 [facility] Comment on above: Performed By: #### C BC, BMP, PHOS, MG1 #### [place] [phone] Hemoglobin (Bld) [Mass/Vol] 13.4 g/dL Normal 11.5-15.5 [facility] Comment on above: Performed By: #### C BC, BMP, PHOS, MG1 #### [phone] Lymphocytes (Bld) [#/Vol] 1.25 10*3/uL Normal 1.00-4.0 0 [facility] Comment on above: Performed By: #### C BC, BMP, PHOS, MG1 #### [phone] Lymphocytes/100 WBC (Bld) 7.0 % Normal [facility] Comment on above: Performed By: #### C BC, BMP, PHOS, MG1 #### [place] [phone] MCH 29.8 pG Normal 26.0-34.0 [facility] Comment on above: Performed By: #### C BC, BMP, PHOS, MG1 #### [place] [phone] MCHC (RBC) [Mass/Vol] 32.2 g/dL Normal 30.5-36.[address] [facility] Comment on above: Performed By: #### C BC, BMP, PHOS, MG1 #### [place] [phone] MCV (RBC) [Entitic vol] 92.7 fL Normal 80.0-100.0 [facility] Comment on above: Performed By: #### C BC, BMP, PHOS, MG1 #### [phone] Monocytes/100 WBC (Bld) 5.0 % Normal [facility] Comment on above: Performed By: #### C BC, BMP, PHOS, MG1 #### [phone] Neutrophils/100 WBC (Bld) 88.0 % Normal [facility] Comment on above: Performed By: #### C BC, BMP, PHOS, MG1 #### [place] [phone] Platelet Estimate Platelet estimate adequate Normal [facility] Comment on above: Performed By: #### C BC, BMP, PHOS, MG1 #### [place] [phone] Platelet mean volume (Bld) [Entitic vol] 9.9 fL Normal 9.0-12.7 [facility] Comment on above: Performed By: #### C BC, BMP, PHOS, MG1 #### [place] [phone] Platelets (Bld) [#/Vol] 234 10*3/uL Normal 150-400 [facility] Comment on above: Performed By: #### C BC, BMP, PHOS, MG1 #### [place] [phone] RBC (Bld) [#/Vol] 4.49 10*6/uL Normal 3.90-5.20 [facility] Comment on above: Performed By: #### C BC, BMP, PHOS, MG1 #### [place] [phone] Red Cell Morph SEE COMMENT Normal [facility] Comment on above: Result Comment: Unre markable Performed By: #### C BC, BMP, PHOS, MG1 #### [place] [phone] WBC (Bld) [#/Vol] 17.84 10*3/uL High 3.70-11.00 [facility] Comment on above: Performed By: #### C BC, BMP, PHOS, MG1 #### [place] [phone] CONSULT PROGon 09-01-2020 CONSULT PROG HNO ID: [id number] Author: Haleigh Case Service: Pain Management Author Type: Nurse Practitioner Type: Consult Progress Note Filed: 09/01/2020 1:38 PM Note Text: PERIPHERAL NERVE CATHETER PROGRESS NOTE PATIENT NAME: Honey Montes SERVICE DATE: 09/01/2020 SERVICE TIME: 8:05 AM ASSESSMENT Honey Montes is a 60 year old female with pmhx: anxiety, CAD, DM, HTN,HLP, mesenteric mass who is now POD# 1, S/P Exploratory laparotomy, excision of mesenteric mass involving D4 and proximal jejunum, resection of JJ, creation of DJ and new JJ with 40 cm BP limb, cholecystectomy. Ms. Montes is OOB to chair, talking to her daughter, she reports abdominal pain (not only incisional) whole abd Bilateral PV sites without signs or symptoms of infection, no erythema, tenderness, drainage, or warmth. NPO - NG in place, Dilaudid CARROT TIER ordered this morning by primary team PDMP website checked and validated. 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 Increased PV X 2 to 0/8/30/2 2. Continue Acetaminophen 650 mg PO Q 6 h 3. Added Flector patch to R shoulder BID 4. Dilaudid CARROT TIER 0/0.2/10/6 for now will transition to oral when tolerating PO The plan was discussed in detail with patient +/- family, bedside RN, APMS staff and primary service, who expressed agreement, understanding and comfort with the plan. Thank you for including us in her care. Please call us with any questions or concerns. [facility]MS will continue to follow. SUBJECTIVE CHIEF COMPLAINT: Post op pain PRIMARY SERVICE: General Surgery INTERVAL HPI: Honey Montes is a 60 year old female who is POD # 1 Exploratory laparotomy, excision of mesenteric mass involving D4 and proximal jejunum, resection of JJ, creation of DJ and new JJ with 40 cm BP limb, cholecystectomy Pain level is 2 at rest 10 with ambulation on a scale of 0-10. Is the patient tolerating Physical Therapy?: Yes Pain at surgical site? Yes, abd Character: severe and sharp Duration: consistent Radiation: No Relieved: No Is patient satisfied with pain control: at times Overnight Events: None Overnight Pain Interventions: No Allergy: ALLERGIES No Known Allergies MEDICATIONS: I have interrogated the multi therapy pump for the correct settings and solution: Yes. Solution Ropivacaine 0.2%, rate 0/8/30/2 ml/hr. Adjuvant Pain Medication: See below. Current Facility-Administere d Medications Medication Dose Route Frequency - ropivacaine nerve block 0.2% (2 mg/mL) - 200 mL PERIPHERAL NERVE CATHETER CONTINUOUS - ropivacaine nerve block 0.2% (2 mg/mL) - 200 mL PERIPHERAL NERVE CATHETER CONTINUOUS - metoprolol 5 mg injection (LOPRESSOR) 5 mg INTRAVENOUS q 6 HR - famotidine 20 mg injection (PEPCID) 20 mg INTRAVENOUS BID - dextrose 40 % 15 g 15 g ORAL PRN Or - glucagon 1 mg injection 1 mg INTRAMUSCULAR PRN Or - dextrose 50% in water 25 mL syringe 12.5 g INTRAVENOUS PRN - heparin 5,000 Units injection 5,000 Units SUBCUTANEOUS q 8 H - lactated ringers infusion 75 mL/hr INTRAVENOUS CONTINUOUS - ondansetron 4 mg tab(s) (ZOFRAN) 4 mg ORAL q 6 H PRN Or - ondansetron (PF) 4 mg injection (ZOFRAN) 4 mg INTRAVENOUS q 6 H PRN - HYDROmorphone 0.2 mg injection (DILAUDID) 0.2 mg INTRAVENOUS q 4 H PRN - insulin lispro injection (rapid acting) (HumaLOG) SUBCUTANEOUS q 6 H - acetaminophen 650 mg CUP (TYLENOL) 650 mg ORAL q 6 H - HYDROmorphone CARROT TIER 0.5 mg/mL in NaCl 0.9% 100 mL INTRAVENOUS CONTINUOUS OBJECTIVE: PHYSICAL EXAM: BP 130/64 Pulse 78 Temp 37.1 ?C (98.8 ?F) (Oral) Resp 18 Ht 165 cm (5' 4.96 ) Wt 51.8 kg (114 lb 4.8 oz) SpO2 93% BMI 19.04 kg/m? Affect: awake, alert and oriented General Impression: appears uncomfortable Catheter site is clean, non-tender and dressing intact. Sensory exam: Surgical limb: ABD Respiratory Exam: Respirations: Breathing appears normal Thoracostomy tube?: No Gastrointestinal Exam: Abdomen: soft, incision with c/d/i dressing in place NG?: Yes DATA: Lab Results Component Latest Ref Rng AND Units 09/01/2020 WBC 3.70 - 11.00 k/uL 21.14 (H) RBC 3.90 - 5.20 m/uL 3.86 (L) Hemoglobin 11.5 - 15.5 g/dL 11.5 Hematocrit 36.0 - 46.0 % 34.6 (L) MCV 80.0 - 100.0 fL 89.6 MCH 26.0 - 34.0 pG 29.8 MCHC 30.5 - 36.0 g/dL 33.2 RDW-CV 11.5 - 15.0 % 14.4 Platelet Count 150 - 400 k/uL 245 MPV 9.0 - 12.7 fL 9.7 Neut% % 92.0 Abs Neut (ANC) 1.45 - 7.50 k/uL 19.45 (H) Lymph% % 4.0 Abs Lymph 1.00 - 4.00 k/uL 0.85 (L) Boyd% % 3.0 Abs Boyd <0.87 k/uL 0.63 Eosin% % 0.0 Abs Eosin <0.46 k/uL 0.00 Baso% % 0.0 Abs Baso <0.11 k/uL 0.00 ANC(includeSEG+BAND) k/uL 19.45 Metamyelo % 1.0 Left Shift Present Red Cell Morph SEE COMMENT Platelet Estimate Platelet estimate adequate Component Latest Ref Rng AND Units 09/01/2020 Protein, Total 6.0 - 8.4 g/dL 5.1 (L) Albumin 3.5 - 5.0 g/dL 3.2 (L) (more content not included)... Normal [facility] Comp Metabolic Panelon 09-01 Albumin [Mass/Vol] 3.2 g/dL Low 3.5-5.0 [facility] Comment on above: Performed By: #### C MP, MG1, PHOS, CBCDIF ####[facility] [place], [place] [phone] ALP [Catalytic activity/Vol] 39 U/L Normal 34-123 [facility] Comment on above: Performed By: #### C MP, MG1, PHOS, CBCDIF ####[facility] [place], [place] [phone] ALT [Catalytic activity/Vol] 15 U/L Normal 0-45 [facility] Comment on above: Performed By: #### C MP, MG1, PHOS, CBCDIF ####[facility] [place], [place] [phone] Anion gap [Moles/Vol] 12 mmol/L Normal 9-[address] [facility] Comment on above: Performed By: #### C MP, MG1, PHOS, CBCDIF ####[place] [phone] AST [Catalytic activity/Vol] 23 U/L Normal 7-40 [facility] Comment on above: Performed By: #### C MP, MG1, PHOS, CBCDIF ####[place] [phone] Bilirubin [Mass/Vol] 0.4 mg/dL Normal 0.2-1.3 [facility] Comment on above: Performed By: #### C MP, MG1, PHOS, CBCDIF ####[place] [phone] Calcium [Mass/Vol] 8.9 mg/dL Normal 8.5-10.5 [facility] Comment on above: Performed By: #### C MP, MG1, PHOS, CBCDIF ####[place] [phone] Chloride [Moles/Vol] 105 mmol/L Normal 98-110 [facility] Comment on above: Result Comment: Revi ewed Performed By: #### C MP, MG1, PHOS, CBCDIF ####[place] [phone] CO2 [Moles/Vol] 23 mmol/L Normal 23-32 [facility] Comment on above: Performed By: #### C MP, MG1, PHOS, CBCDIF ####[place] [phone] Creatinine [Mass/Vol] 0.55 mg/dL Low 0.70-1.[address] [facility] Comment on above: Performed By: #### C MP, MG1, PHOS, CBCDIF ####[place] [phone] eGFR- Amer. >60 Normal >60 [facility] Comment on above: Performed By: #### C MP, MG1, PHOS, CBCDIF ####[place] [phone] eGFR-All Other Races >60 Normal >60 [facility] Comment on above: Performed By: #### C MP, MG1, PHOS, CBCDIF ####[place] [phone] Glucose [Mass/Vol] 153 mg/dL High 65-100 [facility] Comment on above: Performed By: #### C MP, MG1, PHOS, CBCDIF ####[place] [phone] Potassium [Moles/Vol] 4.1 mmol/L Normal 3.5-5.[address] [facility] Comment on above: Performed By: #### C MP, MG1, PHOS, CBCDIF ####[place] [phone] Protein [Mass/Vol] 5.1 g/dL Low 6.0-8.4 [facility] Comment on above: Performed By: #### C MP, MG1, PHOS, CBCDIF ####[place] [phone] Sodium [Moles/Vol] 140 mmol/L Normal 132-148 [facility] Comment on above: Performed By: #### C MP, MG1, PHOS, CBCDIF ####[place] [phone] Urea nitrogen [Mass/Vol] 8 mg/dL Normal 8-25 [facility] Comment on above: Performed By: #### C MP, MG1, PHOS, CBCDIF ####[place] [phone] Magnesiumon 09-01-2020 Magnesium [Mass/Vol] 1.2 mg/dL Low 1.7-2.6 [facility] Comment on above: Performed By: #### C MP, MG1, PHOS, CBCDIF ####[facility] [place], [place] [phone] Magnesium [Mass/Vol] 1.2 mg/dL Low 1.7-2.6 [facility] Comment on above: Performed By: #### C BC, BMP, PHOS, MG1 #### [facility] [address] [place] [address] NURSING PROGon 09-01-2020 NURSING PROG HNO ID: [id number] Author: Torrie (Rn) Kaitlyn, RN Service: Nursing Author Type: Registered Nurse Type: Nursing Progress Note Filed: 09/01/2020 6:22 PM Note Text: Nursing Progress Note Patient Name: Honey Montes [facility] [place] [id number] Daily Note: 0800: Pt c/o 10/10 abdominal pain, resps shallow AND pt speaking softly. Medicated w/ dilaudid 0.2 mg IVP. Bilat PVT blocks maintained AND settings verified. Pt assisted x 1 to chair. Abdomen soft AND tender, BS normoactive. NGT maintained to [facility], no drainage at present time. 0850: Pain reassessed AND pt reports no decrease in pain level 10/10. Dilaudid IV/CARROT TIER infusion started; pt AND daughter Mary educated on pump settings AND use, voiced understanding. PVT blocks x2 increased to 8mL [id number] per new orders from KAT Ricardo. 0950: Pt reports pain level 10/10. Pt observed talking on phone, no grimacing noted. VSS. 1028: Lido patch x2 applied to both sides of abdomen; pt educated on medication. 1122: Pt medicated w/ tylenol, PRN xanax, AND flector patch applied to R shoulder (chronic pain); pt appears comfortable. 1430: Fentanyl 25 mcg IVP administered per EMAR. Dilaudid CARROT TIER button on hold x 30 mins per recommendation from pain mgmt (KAT Ricardo). Fresh ice pack applied to abdomen. 1500: Pt reports 8/10 pain level after fentanyl 25 mcg. CARROT TIER use encouraged. Daughter to bedside AND updated on pt status. 164: Pt tearful, requesting xanax AND states her pain is worse then previous. Paged AND spoke to KAT Ricardo (pain mgmt) and advised to page surgery to see pt, inquiring if dilaudid CARROT TIER should be changed to fentanyl CARROT TIER. 1744: Bedside rounds w/ Dr Sinha. Dilaudid CARROT TIER changed to Fentanyl CARROT TIER. Pt AND daughter agreeable to POC. 1818: Pt reports pain 8/10 but states is much better after switching to Fentanyl CARROT TIER. This note was completed by: Torrie Sahni RN [facility] NURSING PROG HNO ID: [id number] Author: Nayeli (Kvng) KVNG Bennett Service: ? Author Type: Registered Nurse Type: Nursing Progress Note Filed: 09/01/2020 3:12 AM Note Text: Nursing Progress Note Patient Name: Honey Montes Patient Location: -[id number] Daily Note:Pt is in the room resting.She is AANDOX3.Lungs are clear but diminished.Bowl sounds are fait.Pt is not passing any flatus.She has a davey that is putting out godwin urine.Pt has a CARLTON that is putting out bloody fluid. She has a N/G tube that is not putting out a lot.She has 2 ropivacaine Nerve blocks.Pt has PRN pain meds to control her pain.She Has not been out of bed sinnce when she got up to my unit at around 2230.She is repositioning her self in bed.Pt has a mid line incision with an island dressing on it.The dressing is clean dry and intact.Pt is stable at this time.Call light within reach.Will continue to monitor. This note was completed by: Nayeli Bennett RN Normal [facility] Phosphoruson 09-01-2020 Phosphate [Mass/Vol] 4.9 mg/dL High 2.5-4.5 [facility] Comment on above: Performed By: #### C MP, MG1, PHOS, CBCDIF ####[facility] [place], [place] [phone] Phosphate [Mass/Vol] 4.8 mg/dL High 2.5-4.5 [facility] Comment on above: Performed By: #### C BC, BMP, PHOS, MG1 #### [facility] [address] [place] [address] THERAPY NTon 09-01-2020 THERAPY NT HNO ID: [id number] Author: Vinita (Pt) Jenna Service: Physical Therapy Author Type: Physical Therapist Type: Therapy (PT/OT/Speech/Resp) Filed: 09/01/2020 2:06 PM Note Text: Physical Therapy Evaluation SERVICE DATE: 09/01/2020 SERVICE TIME: 1012 to 1051 ROOM: [place] [address] Recommended Discharge Disposition: Home PT Anticipated Discharge Needs: Physical Assist at Home Physical Assist at Home for: Cleaning;Laundry;Ellyn ls;Shopping;Transpor tation Recommended Discharge Equipment: Wheeled Walker PT 6 Clicks Score: 18 Precautions/Activity Restrictions: Abdominal;Bed/Chair Alarm;Fall Risk;Lines/Tubes/Nataly ins Precaution/Activity Restriction Comments: abdominal precautions Current Hospital Course: Neuroendocrine Mass, S/P Exp lap, Excision Mass, resection Of JJ, Creation New JJ, Lilia, Refer to [facility] Reason for Hospital Admission: Neuroendocrine Mass, refer to [facility] Relevant Past Medical History: NSTEMI, Anxiety Disorder, DM II, Smoker, Breast CA, refer to [facility] Physical Therapy Problem List: Pain;Safety Deficits;Decreased Activity Tolerance;Functional Mobility Impairment;Balance Impaired Treatment Interventions: Education;Strengthen ing;Functional Mobility Training;Balance Training Home Environment Patient Lives With: Spouse;Other: See Comment(daughter staying to help ) Assistance Available: PRN(daughter available) Entry To Home: No Stairs Number Of Stairs Into Home: 0 Number Of Stairs To Bed/Bath: 0 Tub/Shower Type: Tub/Shower and Walk-in Shower Laundry: 1st floor; patient completes Equipment Owned: Hand Held Shower;Grab Bars-Shower;Shower Chair;Cane;Lift Chair;Elevated Toilet Seat Prior Functional Level: Within Functional Limits Prior Functional Level Comments: Pt reports being independent with all ADLs; Pt drives; Pt ambulates without an assistive device CURRENT FUNCTIONAL STATUS: Most recent performance Current Functional Mobility Assist Level Additional Information Rolling Supine to Sit Sit to Supine Scooting Stand By Assistance Sit to Stand Minimal Assistance Stand to Sit Contact Guard Assistance Bed to Chair Toilet/Commode Gait Contact Guard Assistance Gait Device: Wheeled Walker Gait Distance (feet): 35' Stairs Curb Step Car Transfer Blank ibarra indicate activity not attempted General Deviations/Observati ons: Kaylan decreased;Flexed trunk posture;Step length decreased;Non-functi onal gait speed;Antalgic gait Balance: Dynamic Standing Dynamic Standing Balance: Fair Patient accepts minimal challenge, able to maintain balance while turning head/trunk Activity Tolerance: Standing Activity Standing Activity: won-gn-yklts; gait training with ww Standing Activity Tolerance (in minutes): 9 JH-HLM: 7: Walk 25 feet or more Learning/Educational Needs: Discharge Plan;Functional Activities/Mobility; Plan of Care;Precautions;Saf ety Goals for Plan of Care: Patient /Caregiver Goals: Go Home Goals: Patient will demonstrate understanding of importance of mobility during hospital stay and resolve all functional needs identified.;Patient will demonstrate progress with functional mobility to allow safe discharge to home with available support and/or physical assistance.;Patient will demonstrate progress to optimize functional mobility, maximize activity tolerance and endurance to maximize function upon discharge. Able to perform HEP with: Independent Rolling with: Modified Independent Transfer supine to/from sit with: Supervision Transfer sit to/from stand with: Stand By Assistance Ambulate with: Stand By Assistance Distance: 150' Device: Wheeled Walker Rehab Potential: Good Patient will be discontinued from Physical Therapy when no further skilled needs are identified in this setting. PLAN: Treatment Frequency (times per week): 3 Current admission Plan of Care developed with: Patient;Family(ryanne tovar) TREATMENT INTERVENTIONS: Therapy Diagnosis: Muscle Weakness (generalized);Decrea sed activities of daily living (ADL);Reduced mobility-other Interventions Provided: Gait Training (14304);Therapeutic Exercise (29586);Evaluation $ Evaluation-Low (40964) Billed Units: 1 unit Therapeutic Exercise (87915) Treatment Minutes: 15 Seated LE exercises performed with verbal and tactile cues given to achieve correct performance of exercises. Education provided on importance of exercises and in-hospital mobility. Education provided on abdominal precautions. $ Therapeutic Exercise (00106) Billed Units: 1 unit Gait Training (31196) Treatment Minutes: 9 Udo-cz-rjvpj transfer with verbal cues given to push from the chair for safety. Gait training with ww. No loss of balance. Verbal cues provided to maintain correct distance from ww for safety. $ Gait Training (43350) Billed Units: 1 unit Total Timed Code Treatment Minutes: 24 Total Treatment Time (minutes): 39 Please see discipline specific clinical documentation flowsheet for complete de (more content not included)... Normal [facility] THERAPY NT HNO ID: [id number] Author: Windy (Ot) Gabriela Service: Occupational Therapy Author Type: Occupational Therapist Type: Therapy (PT/OT/Speech/Resp) Filed: 09/01/2020 9:17 AM Note Text: Occupational Therapy Evaluation SERVICE DATE: 09/01/2020 SERVICE TIME: 749 ROOM: [place] [address] Neuroendocrine Tumor, S/P Exploratory Laparotomy, Excision Of Mesenteric Mass Involving D4 And Proximal Jejunum, Resection Of JJ, Creation Of DJ And New JJ With 40 cm BP Limb, Cholecystectomy 08/31/20 Recommended Discharge Disposition: Home OT Anticipated Discharge Needs: Physical Assist at Home;Equipment Physical Assist at Home for: Cleaning;Laundry;Ellyn ls;Self Care;Shopping;Transp ortation Recommended Discharge Equipment: Elastic Shoe Laces;Grab Bars-Shower;Grab Bars-Toilet;Hand Held Shower;Long Handled Shoe Horn;Wheeled Walker;Pharmacy Technician Inpatient;Sock Aid;Shower Chair OT 6 Clicks Score: 14 Precautions/Activity Restrictions: Abdominal;Bed/Chair Alarm;Fall Risk;Lines/Tubes/Nataly ins;Other: See Comments;Diet Restrictions(NG Tube, NPO) Current Hospital Course: Neuroendocrine Mass, S/P Exp lap, Excision Mass, resection Of JJ, Creation New JJ, Lilia, Refer to Epic Reason for Hospital Admission: Neuroendocrine Mass, refer to Epic Relevant Past Medical History: NSTEMI, Anxiety Disorder, DM II, Smoker, Breast CA, refer to [facility] Response to Therapy Interventions: On-track to achieve discharge goals, Good participation in activities, Requires additional time to complete activities Continue skilled needs due to: Safety concerns, Functional impairment Occupational Therapy Problem List: Pain;Safety Deficits;Impaired Self Care;Decreased Activity Tolerance;Decreased Strength;Functional Mobility Impairment Cognition/Communicat ion Deficits Responsiveness: Alert, Awake Follows Commands: 3-step Commands, Cueing Needed Cueing to Follow Commands: Minimum Psychosocial Deficit: h/o anxiety disorder Treatment Interventions: Education;Self Care / Home Management;Energy Conservation Training;Functional Mobility Training Plan for next visit: Fall prevention, Energy conservation, Bed mobility, Bathing training, Dressing training, Sit to stand transfers, Standing balance, Standing tolerance, Toileting instruction Home Environment Patient Lives With: Spouse;Other: See Comment(one level home in [place], [place]) Assistance Available: PRN;Other: See Comment(two children in area, spouse disabled) Entry To Home: Stairs;With Rail Number Of Stairs Into Home: 1 Number Of Stairs To Bed/Bath: 0 Tub/Shower Type: Tub/Shower and Walk-in Shower Laundry: 1st level Equipment Owned: Shower Chair;Grab Bars-Shower;Cane;Oth er: See Comment(Spouse uses cane at times) Prior Functional Level: Within Functional Limits Prior Functional Level Comments: Per Pt, she was independent with ADL's, IADL's, ambulated independently, and drives. Patient Report: I am in alot of pain CURRENT FUNCTIONAL STATUS: Most recent performance Current Activities of Daily Living Assist Level Additional Information Feeding Modified Independent Grooming Minimal Assistance Bathing Upper Body Moderate Assistance Bathing Lower Body Maximal Assistance Dressing Upper Body Maximal Assistance Dressing Lower Body Maximal Assistance Toileting Total Assistance Instrumental Activities of Daily Living Assist Level Additional Information Meal/Beverage Prep Cleaning Laundry Medication Management with Strategies Functional Mobility Assist Level Additional Information Rolling Moderate Assistance Supine to Sit Moderate Assistance Sit to Supine Scooting Moderate Assistance Sit to Stand Minimal Assistance Stand to Sit Minimal Assistance Bed to Chair Minimal Assistance (Pt ambulated 3-4 steps to bedside chair) Wheeled Walker Toilet/Commode Functional Mobility Minimal Assistance Wheeled Walker Blank ibarra indicate activity not attempted Balance: Static Sitting;Dynamic Sitting;Static Standing;Dynamic Standing Static Sitting Balance: Good Patient able to maintain balance without handhold support, limited postural sway Dynamic Sitting Balance: Fair Patient accepts minimal challenge, able to maintain balance while turning head/trunk Static Standing Balance: Fair Patient able to maintain balance with handhold support, may require occasional minimal assistance Dynamic Standing Balance: Fair Patient accepts minimal challenge, able to maintain balance while turning head/trunk Activity Tolerance: (Pt tolerated transfer to chair) Learning/Educational Needs: Discharge Plan;Equipment;Famil y Education/Training;F unctional Activities/Mobility; Precautions;Safety;S elf Care Goals for Plan of Care: Patient /Caregiver Goals: Go Home Goals: Patient will demonstrate progress with self-care, cognitive and/or coping needs identified to allow safe discharge to home with available support and/or physical assistance. Grooming with: Stand By Assistance Uppe (more content not included)... Normal [facility] ANES POSTPROC EVALon 020 ANES POSTPROC EVAL HNO ID: [id number] Author: Kehinde Partida Service: ? 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 Post Anesthesia Patient Status Patient Evaluation: PACU. PACU/ICU Patient Condition: stable. Anticipated Disposition: inpatient floor planned admission. Neurological Status: aware and responsive. Pulmonary Status: breathing comfortably on room air Airway Control: returned to baseline unsupported. Cardiovascular Status: stable. Pain Management: clinically adequate Postoperative Hydration: acceptable. Intraoperative Events: no significant anesthesia events Post Operative Nausea/Vomiting Status: Anesthetic Observations: no significant anesthetic observations Recommendation: continue current plan of care. SIGNATURE: Kehinde Partida MD PATIENT NAME: Honey Montes DATE: August 31, 2020 TIME: 8:15 PM CSN: [id number] [facility] ANES PRE-OPon 08-31-2020 ANES PRE-OP HNO ID: [id number] Author: Angelina Dumas Service: ? Author Type: Anesthesiologist Type: Anesthesia Preprocedure Evaluation Filed: 08/31/2020 10:03 AM Note Text: ANESTHESIOLOGY DAY OF SURGERY NOTE : 1960 Procedure(s) (LRB): RESECTION BOWEL SMALL (N/A) Surgeon(s): Jr Sinha Estimated body mass index is 19.64 kg/m? as calculated from the following: Height as of 08/28/20: 165.1 cm (5' 5 ). Weight as of 08/28/20: 53.5 kg (118 lb). Most recent hematocrit and potassium results: Hematocrit 37.6 08/28/2020 Potassium 4.1 08/28/2020 Relevant Problems CARDIO (+) Atherosclerotic heart disease of [place] coronary artery without angina pectoris (+) Essential hypertension (+) NSTEMI (non-ST elevated myocardial infarction) (HCC) ENDO (+) Type 2 diabetes mellitus without complication, without long-term current use of insulin (HCC) NEURO-PSYCH (+) Personal history of malignant neoplasm of breast I - PHYSICAL EVALUATION AIRWAY Patient intubated: No. Neck ROM: limited flexion and extension. Mouth opening: non-adequate. Short neck: no. Thick neck: no DENTAL Dentures, lower: partial. II - ANESTHESIA PLAN ASA Score: 3 Anesthetic Plan: general Airway type: ETT The patient is a current smoker. Monitoring plan: standard ASA. Postoperative analgesic plan: multimodal analgesia. Anesthetic Risks, Benefits, Alternatives, Personnel Discussed. Consent obtained from: patient. Patient / Surrogate agrees to blood products: Yes Potential Anesthesia issues that may suggest increased risk of complications or contraindication to planned procedure: potential difficult intubation. Vitals Value Taken Time BP 97/46 08/31/20 0956 Pulse 58 08/31/20 0956 Resp 18 08/31/20 0956 Temp 36.8 ?C (98.2 ?F) 08/31/20 09 SpO2 98 % 08/31/20955 Facility-Administere d Medications as of 08/31/2020 Medication Dose Route Frequency - lidocaine 10 mg/mL (1 %) 1-2 mg injection (XYLOCAINE) 0.1-0.2 mL INTRADERMAL PRN - lactated ringers infusion 5-30 mL/hr INTRAVENOUS CONTINUOUS - heparin 5,000 Units injection 5,000 Units SUBCUTANEOUS Pre-Op Once - cefTRIAXone iv piggyback 1 g in dextrose (iso-osmotic) 50 mL (ROCEPHIN) 1 g INTRAVENOUS q 24 H And - metroNIDAZOLE iv piggyback 500 mg in NaCl (iso-osmotic) 100 mL (FLAGYL) 500 mg INTRAVENOUS q 8 H Outpatient Medications as of 08/31/2020 Medication Sig - oxyCODONE-acetaminop hen (PERCOCET) 5-325 mg tablet Take 1 tablet by mouth every 8 hours as needed. 10-325mg - clopidogrel (PLAVIX) 75 mg tablet Take 75 mg by mouth once daily. - Ferrous Fumarate 325 mg (106 mg iron) tab Take 65 Each by mouth once daily. - gabapentin (NEURONTIN) 600 mg tablet Take 600 mg by mouth three times daily. - metformin HCl (METFORMIN ORAL) Take 500 mg by mouth twice daily. - metoprolol tartrate, short acting, (LOPRESSOR) 25 mg tablet Take 25 mg by mouth twice daily. - atorvastatin (LIPITOR) 80 mg tablet Take 80 mg by mouth once daily. - ALPRAZolam (XANAX) 1 mg tablet Take 1 mg by mouth three times daily as needed. - potassium chloride (K-TAB) 10 mEq tablet Take 10 mEq by mouth once daily. - zolpidem (AMBIEN) 10 mg Take 10 mg by mouth at bedtime as needed. - citalopram (CELEXA) 20 mg tablet Take 20 mg by mouth once daily. - Magnesium Oxide 420 mg tab Take 400 mg by mouth once daily. - tamoxifen (NOLVADEX) 20 mg tablet Take 20 mg by mouth once daily. - omeprazole (PRILOSEC) 40 mg capsule Take 1 capsule by mouth daily before breakfast. - iv contrast (will be provided with radiology test) MRI ABDOMEN Inject, intravenously, once for 1 dose. No IV access, insert saline lock prior to the beginning of sedation, infusion, injection of imaging exam. Discontinue saline lock post exam. If Pt. has a central line or IVAD, may access for administration according to line specific nursing protocol. Once exam is complete flush line and de-access according to line specific nursing protocol in the MR contrast administration guidelines link. I have interviewed and examined the patient. I have reviewed the medical record and/or the pre-anesthesia evaluation, pertinent labs, and test results. This contains updated information obtained within 48 hours of Surgery/Procedure. SIGNATURE: Angelina Dumas MD PATIENT NAME: Honey Montes DATE: August 31, 2020 TIME: 10:02 AM CSN: [id number] [facility] BRIEF OP NOTon 08-31-2020 BRIEF OP NOT HNO ID: [id number] Author: Faith Tirado Service: General Surgery Author Type: Resident Type: Brief Op Note Filed: 08/31/2020 7:31 PM Note Text: BRIEF OPERATIVE / PROCEDURE NOTE LOG ID: [id number] SURGERY/PROCEDURE DATE: 08/31/2020 INCISION/PROCEDURE START TIME: 2:48 PM INCISION CLOSE/PROCEDURE END TIME: 7:15 PM SURGEON(S)/PROCEDURA LIST(S) AND RESIDENTIAL INSTALLER(S): Surgeon(s) and Role: * Jr Sinha - Primary * Faith Tirado - Resident - Assisting No Additional Staff SURGERY/PROCEDURE(S) : Exploratory laparotomy, excision of mesenteric mass involving D4 and proximal jejunum, resection of JJ, creation of DJ and new JJ with 40 cm BP limb, cholecystectomy ANESTHESIA: General FINDINGS: 3 cm mesenteric mass adjacent to D4 and SMA, distended gallbladder ESTIMATED BLOOD LOSS: 350 mls SPECIMENS: Mesenteric mass, jejunojejunostomy, gallbladder COMPLICATIONS: None DRAINS: 19Fr CARLTON drain posterior to GJ and exiting left lower quadrant PRE-OP/PRE-PROCEDURE DIAGNOSIS: Neuroendocrine tumor POST-OP/POST-PROCEDU RE DIAGNOSIS: Same as Preop SIGNATURE: Faith Tirado MD PATIENT NAME: Honey Montes DATE: August 31, 2020 TIME: 7:28 PM PAGER/CONTACT #: [phone] [facility] HISTORY PHYSICALon 0 HISTORY PHYSICAL HNO ID: [id number] Author: Faith Tirado Service: General Surgery Author Type: Resident Type: HANDP Filed: 08/31/2020 1:50 PM Note Text: UPDATED HISTORY AND PHYSICAL EXAMINATION SERVICE DATE: 08/31/2020 SERVICE TIME: 1:48 PM PHYSICAL EXAM MUST BE COMPLETED ON ADMISSION The History and Physical (completed in the past 30 days) has been reviewed and the patient has been examined. The contents accurately reflect the patient's condition with the following additions or revisions since the HANDP was completed. Examination indicates no changes. Lungs: Clear to auscultation bilaterally Heart: Regular rate and rhythm, no murmurs, rubs or gallops This HANDP can be found in the Electronic Medical Record dated 08/28/2020. SIGNATURE: Faith Tirado MD PATIENT NAME: Honey Montes DATE: August 31, 2020 TIME: 1:48 PM PAGER: [phone] [facility] NURSING PROGon 08-31-2020 NURSING PROG HNO ID: [id number] Author: Nicolette (Rn) KVNG Washburn Service: Nursing Author Type: Registered Nurse Type: Nursing Progress Note Filed: 08/31/2020 9:42 AM Note Text: PATIENT EDUCATION TOPIC: PROCEDURE / SURGERY: Pre-op Teaching: Protocols PATIENT NAME: Honey Montes PATIENT LOCATION: [place] READINESS TO LEARN COGNITIVE ABILITY: Alert and oriented MOTIVATION TO LEARN: Eager FAMILY SUPPORT: None - Unavailable/disinter ested INSTRUCTION PROVIDED TO: Patient PATIENT LEARNS BEST BY: Individual Instruction FACTORS AFFECTING LEARNING: None PHYSICAL LIMITATIONS AFFECTING LEARNING: None LEARNING RESPONSE DIAGNOSIS: ADULT: Well Adult PATIENT/FAMILY RESPONSE: Verbalizes understanding of: PRE-OPERATIVE INSTRUCTIONS-Correct action to take to follow pre-operative instructions METHOD OF INSTRUCTION: Individual instruction FOLLOW-UP PLAN: Complete - No need for follow-up INSTRUCTIONAL AIDS USED: NA SUPPLEMENTAL MATERIAL PROVIDED TO PATIENT: None REFERRAL (RECOMMENDATION): None Electronically Signed By: Nicolette Washburn RN [facility] OPERATIVE NOon 08-31-2020 OPERATIVE NO HNO ID: [id number] Author: Jr Sinha Service: General Surgery Author Type: Physician Type: Operative Report Filed: 09/04/2020 1:51 PM Note Text: [facility] - Operative Report HONEY MONTES : 1960 AGE: 60. SEX: F PATIENT TYPE: I HOSP SVC: GENS LOCATION: [facility] ATTENDING PHYSICIAN: Jr Sinha MD CSN NUMBER: [id number] DATE OF SURGERY/PROCEDURE: 08/31/2020 INCISION/PROCEDURE START TIME: 2:48 PM INCISION CLOSE/PROCEDURE END TIME: 7:15 PM PREOPERATIVE DIAGNOSIS: Neuroendocrine mass, root of mesentery. POSTOPERATIVE DIAGNOSIS: Neuroendocrine mass, root of mesentery. SURGEON: Jr Sinha MD RESIDENTIAL INSTALLER: Faith Tirado. SURGERY/PROCEDURE: 1. Exploratory laparotomy, lysis of adhesions, resection of proximal jejunum and partial resection of D4 with resection of mesenteric mass right next to the SMA. 2. End-to-side duodenojejunostomy. 3. Chns-dt-shbg jejunojejunostomy. 4. Resection of the jejunojejunostomy. 5. Cholecystectomy. ANESTHESIA: General endotracheal anesthesia. COMPLICATIONS: None. ESTIMATED BLOOD LOSS: 300 mL. SPECIMENS: 1. Jejunojejunostomy. 2. Proximal jejunum and D4. 3. Cholecystectomy. 4. Mesenteric mass. WOUND CLASS: 2. INDICATION: Patient is a pleasant female, who had a recent expiration in [place] for a perforated gastric ulcer. She underwent a partial gastrectomy with Parrish-en-Y retrocolic gastrojejunostomy. Patient was subsequently seen at the clinic for severe abdominal pain. Extensive workup noted a mesenteric mass at the root of the SMA approximately 3 cm in size, which was subsequently biopsied under endoscopic ultrasound guidance and was noted to be neuroendocrine tumor. Patient was scheduled for surgery. Patient did have pretty significant thickening of the gallbladder preoperatively and some upper abdominal discomfort. The decision was made to perform a cholecystectomy at the same time. Because of the proximity of the mass to the SMA with multiple small branches from the SMA, and additional 2 hours were spent in dissection related to this. Please place a 22 modifier for the same. DESCRIPTION OF PROCEDURE: The patient was identified and brought to the operating room and placed supine on the operating table. General anesthesia was induced. The abdomen was prepped and draped in a surgical fashion. A midline laparotomy was made from mid epigastrium to just below the umbilicus. Dissection was carried down to the fascia, which was incised. The abdominal wall was retracted. Some adhesions of the omentum to the anterior abdominal wall were noted, which were taken down. Dense adhesions of the omentum and omentum to the lower edge of the liver were taken down sharply. Finally, adhesions of the liver to the anterior abdominal wall were taken down sharply. Approximately half an hour was spent during adhesiolysis related to her recent surgery. Please place a modifier for the same. At this point, we were able to finally identify the duodenum and the stomach. Infracolically, we were able to identify the gastrojejunostomy, which was brought infracolically through the transverse mesocolon. Dense adhesions in this area were all lysed and finally were able to visualized the duodenum and the ligament of Treitz. The ligament of Treitz was taken down and at this point, we were able to visualized the mesenteric mass, which appeared to be almost like a large lymph node in this region right next to the SMA. To allow safe transection of this mass, it was essential to transect the jejunum approximately 10 cm distal to ligament of Treitz and very carefully, the dissection was carried towards this mass taking down multiple short branches of the SMA and the SMV to the bowel, which were all clamped, tied, and transected. Bleeding was noted in this area at one point, which was quickly controlled with 4-0 Prolene sutures. Finally, we were able to separate the mass off from the root of the SMA, pulling it out separately and at this point appeared to be a large lymph node. The ligament of Treitz, which had been completely mobilized allowed us to visualize the 4th part of the duodenum, which was transected sharply using electrocautery and specimen was passed off the table. Next, at this point, the bowel leading up to the jejunojejunostomy. The BP limb leading up to the jejunojejunostomy, was noted to be ischemic, which was expected based on the blood supply that was taken down. The jejunojejunostomy was transected. The Parrish limb was first transected using Endo-PATSY cano load. The common alimentary limb was transected using Endo-PATSY cano load. The mesentery was transected using LigaSure. The specimen was passed off the table. At this point, reconstruction was started. The distal alimentary limb was brought to the transected duodenum, because of significant size discrepancy and end-to-side anastomosis was (more content not included)... Normal [facility] SURGICAL PATHOLOGYon 020 SURGICAL PATHOLOGY Specimen originated from [facility] Specimen #: [id number] Submitting Physician: JR SINHA MD FINAL DIAGNOSIS 1. Gallbladder, cholecystectomy (A) - Gallbladder with patchy acute inflammation. 2. Jejunostomy, excision (B) - Segment of small bowel with acute serositis and changes consistent with prior surgical site. - Two lymph nodes, negative for malignancy (0/2). 3. Mesenteric mass, excision (C) - Well-differentiated neuroendocrine tumor, grade 2, involving a lymph node (see comment). 4. Proximal jejunum, excision (D) - Segment of small bowel with patchy acute serositis and focal foreign body giant cell reaction. - One lymph node, negative for malignancy (0/1). JEL/kll 09/07/2020 COMMENT 3. Immunohistochemical stains have been performed on block C3 for tumor classification and grading. The tumor cells are positive for synaptophysin (strong, diffuse) and cytokeratin AE1/3 (patchy). They are negative for TTF1, CDX2, PAX8, S100, calcitonin, and carcinoembryonic antigen (CEA). The Ki-67 labeling index is 17.4% (positive staining in 87 out of 500 tumor cell nuclei counted). Nuclear expression of ATRX is retained, and there is no evidence of aberrant p53 expression. The combined histomorphologic and immunohistochemical findings are consistent with well-differentiated neuroendocrine tumor, grade 2, involving a lymph node. The immunophenotype is not diagnostic of a particular site of origin. Correlation with clinical, radiologic, and intraoperative findings is suggested. Laboratory Developed Test (LDT) Disclaimer: Positive and negative controls stain appropriately. Performance characteristics of immunohistochemical, immunofluorescent and chromogenic in-situ hybridization tests have been determined by [facility]'s Psychiatric Pathology and Laboratory Medicine Reader ([facility]) in a manner consistent with CLIA requirements. One or more of these tests have not been cleared or approved by the FDA. [facility] is regulated under CLIA as qualified to perform high-complexity testing. These tests are used for clinical purposes. They should not be regarded as investigational or for research. Jacques Laurent M.D. (Electronic Signature) SPECIMEN SUBMITTED A: GALLBLADDER B: JEJNUOSTOMY C: MESENTERIC MASS D: PROXIMAL JEJUNUM CLINICAL DATA NEUROENDOCRINE TUMOR OF SMALL BOWEL; SMALL BOWEL RESECTION GROSS DESCRIPTION A. Received in formalin designated gallbladder is a gallbladder that measures 15 x 4.5 x 4 cm. The serosal surface is cano-webb and smooth. The cystic duct measures 0.3 cm in length and 0.6 cm in diameter. Within the gallbladder is a green viscous bile. There are no calculi present within the gallbladder or the compacting the cystic duct. The gallbladder mucosa is green and velvety with a wall thickness of 0.1 cm. Conversion Worker sections are submitted in one cassette. B. Received in formalin designated jejunostomy is an anastomosed segment of small bowel that measures 13 cm in length and 9 cm in circumference. The specimen has three staple lines. The serosal surface is pink-cano, slightly ragged. The bowel is opened to reveal an anastomotic line. The mucosa on one side of the anastomotic line is slightly dusky and thickened with a wall thickness of 0.6 cm. The remaining mucosa is pink-cano with a wall thickness of 1 cm. No masses or lesions are identified. Conversion Worker sections are submitted as follows: B1 staple line 1 shave, B2 staple line 2 shave, B3 staple line 3 shave, B4 anastomotic line, B5 mucosa with ragged serosa, B6 three intact possible lymph nodes. Additional sections submitted from margin of dusky bowel to opposing bowel margin as follows: B7-B10 2 cm, B11-B13 4 cm, B14-B17 6 cm, B18-B20 8 cm, B21-B23 10 cm, B24-B26 12 cm. KIMMIE/mayra 09/01/2020 C. Received in formalin designated mesenteric mass is a dusky, rubbery and bosselated nodule that weighs 13 grams and measures 3.5 x 2.7 x 2.7 cm. Sectioning through the mass reveals cano-white, homogeneous and smooth cut surfaces. Conversion Worker sections C1-C3 community health program representative sections, C4-C9 remaining specimen. D. Received in formalin designated proximal jejunum is an unoriented segment of small bowel that measures 10 cm in length and 7.5 cm in circumference. The serosal surface is slightly dusky. The bowel is opened to reveal dusky mucosa showing normal mucosal folds with a wall thickness of 1 cm. Conversion Worker sections are submitted as follows: D1 margin 1 perpendicular inked orange, D2 margin 2 perpendicular inked blue, D3 small bowel, D4 entire mesenteric fat, D5-D30 remainder of specimen submitted from the orange to the blue inked margin as follows: D5-D11 orange margin to 2 cm, D12-D18 2 -4 cm, D19-D28 4-6 cm, D29-D32 6-8 cm, D (more content not included)... Normal [facility] Confirm Blood Typeon ABO/RH(D) Positive [facility] Comment on above: Performed By: #### C BC, BMP, PHOS, MG1 #### [place] [phone] Type and SCR (30D)on ABO/RH(D) Positive [facility] Comment on above: Performed By: #### C BC, BMP, PHOS, MG1 #### [place] [phone] HOSPon 08-10-2020 HOSP Patient:Honey Montes MRN: Height:5' 5 (1.651 m) Weight:118 lb (53.524 kg) Outpatient Medications as of 08/31/20: iv contrast (will be provided with radiology test) oxyCODONE-acetaminop hen (PERCOCET) 5-325 mg tablet clopidogrel (PLAVIX) 75 mg tablet Ferrous Fumarate 325 mg (106 mg iron) tab gabapentin (NEURONTIN) 600 mg tablet metformin HCl (METFORMIN ORAL) metoprolol tartrate, short acting, (LOPRESSOR) 25 mg tablet atorvastatin (LIPITOR) 80 mg tablet ALPRAZolam (XANAX) 1 mg tablet potassium chloride (K-TAB) 10 mEq tablet zolpidem (AMBIEN) 10 mg citalopram (CELEXA) 20 mg tablet Magnesium Oxide 420 mg tab tamoxifen (NOLVADEX) 20 mg tablet omeprazole (PRILOSEC) 40 mg capsule Admission/Clinic Administered Medications as of 08/31/20: lidocaine 10 mg/mL (1 %) 1-2 mg injection (XYLOCAINE) lactated ringers infusion heparin 5,000 Units injection cefTRIAXone iv piggyback 1 g in dextrose (iso-osmotic) 50 mL (ROCEPHIN) metroNIDAZOLE iv piggyback 500 mg in NaCl (iso-osmotic) 100 mL (FLAGYL) HYDROmorphone HCl 0.4 mg injection (DILAUDID) Problem List: Epigastric pain [R10.13] Personal history of malignant neoplasm of breast [Z85.3] Anxiety disorder, unspecified [F41.9] Atherosclerotic heart disease of [place] coronary artery without angina pectoris [I25.10] Gastrointestinal hemorrhage, unspecified [K92.2] USP (current) use of antithrombotics/anti platelets [Z79.02] Cigarette nicotine dependence without complication [F17.210] Abnormal CT of the abdomen [R93.5] Essential hypertension [I10] Other hyperlipidemia [E78.49] NSTEMI (non-ST elevated myocardial infarction) (HCC) [I21.4] Type 2 diabetes mellitus without complication, without long-term current use of insulin (HCC) [E11.9] 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] Allergies: No Known Allergies Date Verified:08/31/20 Lab Values Lab Value Units Date High Low POTA* 4.1 mmol/L 08/28/2020 5.1 3.7 BERNADETTE* 37.6 % 08/28/2020 46.0 36.0 Progress Notes ([address]): Angela Mccarthy RN 08/28/2020 3:29 PM Signed AMBULATORY PATIENT EDUCATION NOTE PRE-OP TEACHING PROCEDURE: small bowel resection for duodenal/jejunal NET READINESS TO LEARN COGNITIVE ABILITY: Alert and oriented MOTIVATION TO LEARN: Eager FAMILY SUPPORT: High - Very involved in pt care INSTRUCTION PROVIDED TO: Patient and family member PATIENT LEARNS BEST BY: Multiple Methods FACTORS AFFECTING LEARNING: None PHYSICAL LIMITATIONS AFFECTING LEARNING: None LEARNING RESPONSE DIAGNOSIS: NET METHOD OF INSTRUCTION: Individual instruction Written instruction - handouts Verbal instruction PATIENT / FAMILY RESPONSE: Verbalizes understanding of: PAIN MANAGEMENT-Effective strategies to manage pain in addition to pain medication PHYSICAL RESTRICTIONS-Physica l restrictions and recommendations after discharge from the hospital POST-OPERATIVE INSTRUCTIONS-Correct actions to take to reduce postoperative complications PRE-OPERATIVE INSTRUCTIONS-Correct action to take to follow pre-operative instructions SYMPTOM MANAGEMENT-Correct actions to take to manage symptoms associated with his/her disease/illness WORSENING CONDITION-Signs and symptoms of a worsening condition that warrant a call to the physician WOUND CARE-Correct procedure to perform wound care DIET- Post op diet OTHER PRE-OP INSTRUCTIONS: Covid 19 Testing FOLLOW-UP PLAN: Complete - No need for follow-up Patient instructed to call with any further issues Contact information given. SUPPLEMENTAL MATERIAL: - Pre Op Instructions Handout - [facility] Brochure - Post Op Instructions Handout REFERRAL (RECOMMENDATION): None Electronically Signed By: Angela Mccarthy RN In Department: GENERAL SURGERY Progress Notes ([facility] REJ): Jr Sinha MD 08/28/2020 5:16 PM Signed SURGERY PREOPERATIVE VISIT NOTE Name: Honey Montes Medical Record: [id number] Encounter No.: [id number] Honey Montes is a 60 year old female seen in surgery clinic today for their final preoperative assessment. INTERVAL NOTE: Here to discuss regarding surgery PET Dotatate 07/13/2020 EUS 05/27/2020 CT Enterography 01/25/2020 CT A/P PLANNED PROCEDURE: Laparotomy, with bowel resection possible cholecystectomy PAST MEDICAL HISTORY: PAST MEDICAL HISTORY Diagnosis Date - Coronary artery disease - Diabetes (HCC) - History of transfusion - HTN (hypertension) - Hx of colonoscopy 2017 - Hyperlipidemia - Neuroendocrine cancer (HCC) duodenal/jejunum - STEMI (ST elevation myocardial infarction) (HCC) 03/2018 s/p PTCA-SUNITHA - Tobacco abuse PAST SURGICAL HISTORY: PAST SURGICAL HISTORY Procedure Laterality Date - PARTIAL GASTRECTOMY 03/2020 s/p partial gastrectomy due to perforation - ROTATOR CUFF REPAIR 11/2019 SOCIAL HISTORY: Social History Tobacco Use - Smoking status: Current Some Day Smoker Packs/day: 1.00 (more content not included)... Normal [facility] Vital Signs Date Time Vital Sign Value Performing Clinician Janae loya 10-21-2023 07:00-0500 Body temperature 98.2 [degF] Tyree Crook MD [facility] 10-21-2023 07:00-0500 Diastolic blood pressure 58 mm[Hg] Tyree Crook MD Work Phone: [facility] [employer] [facility] 10-21-2023 07:00-0500 Heart rate 54 /min Tyree Crook MD Work Phone: [facility] 10-21-2023 07:00-0500 Respiratory rate 16 /min Tyree Crook MD Work Phone: [facility] 10-21-2023 07:00-0500 SaO2% (BldA) [Mass fraction] 94 % Tyree Crook MD Work Phone: [facility] 10-21-2023 07:00-0500 Systolic blood pressure 112 mm[Hg] Tyree Crook MD Work Phone: [facility] 10-21-2023 04:29-0500 Body mass index (BMI) [Ratio] 21.86 kg/m2 Tyree Crook MD Work Phone: [facility] 10-21-2023 04:29-0500 Body weight 57.8 kg Tyree Crook MD Work Phone: [facility] 10-20-2023 00:32-0500 Body height 162.6 cm Tyree Crook MD Work Phone: [facility] 07-11-2023 10:08-0400 Body temperature 97.39 [degF] Rosana Mchugh MD Work Phone: [facility] 07-11-2023 10:08-0400 Body weight 53.98 kg Rosana Mchugh MD Work Phone: [facility] 07-11-2023 10:08-0400 Diastolic blood pressure 55 mm[Hg] Rosana Mchugh MD Work Phone: [facility] 07-11-2023 10:08-0400 Heart rate 75 /min Rosana Mchugh MD Work Phone: [facility] 07-11-2023 10:08-0400 SaO2% (BldA) [Mass fraction] 98 % Rosana Mchugh MD Work Phone: [facility] 07-11-2023 10:08-0400 Systolic blood pressure 98 mm[Hg] Rosana Mchugh MD Work Phone: [facility] 06-15-2023 13:50-0400 Body height 162.6 cm Jr Sinha MD Work Phone: [facility] 06-15-2023 13:50-0400 Body temperature 97.7 [degF] Jr Sinha MD Work Phone: [facility] 06-15-2023 13:50-0400 Body weight 52.62 kg Jr Sinha MD Work Phone: [facility] 06-15-2023 13:50-0400 Diastolic blood pressure 64 mm[Hg] Jr Sinha MD Work Phone: [facility] 06-15-2023 13:50-0400 Heart rate 75 /min Jr Sinha MD Work Phone: [facility] 06-15-2023 13:50-0400 SaO2% (BldA) [Mass fraction] 100 % Jr Sinha MD Work Phone: [facility] 06-15-2023 13:50-0400 Systolic blood pressure 97 mm[Hg] Jr Sinha MD Work Phone: [facility] 06-15-2022 12:19-0400 Body height 165.1 cm Owen Lin MD Work Phone: [facility] [employer] 06-15-2022 11:00-0400 Heart rate 80 /min Owen Lin MD Work Phone: [facility] [employer] 06-15-2022 11:00-0400 Respiratory rate 17 /min Owen Lin MD Work Phone: [facility] [employer] 06-15-2022 10:30-0400 Body temperature 98.29 [degF] Owen Lin MD Work Phone: [facility] [employer] 06-15-2022 10:30-0400 Diastolic blood pressure 63 mm[Hg] Owen Lin MD Work Phone: [facility] [employer] 06-15-2022 10:30-0400 SaO2% (BldA) [Mass fraction] 98 % Owen Lin MD Work Phone: [facility] [employer] 06-15-2022 10:30-0400 Systolic blood pressure 106 mm[Hg] Owen Lin MD Work Phone: [facility] [employer] 06-15-2022 06:00-0400 Body mass index (BMI) [Ratio] 17.54 kg/m2 Owen Lin MD Work Phone: [facility] [employer] 06-15-2022 06:00-0400 Body weight 47.8 kg Owen Lin MD Work Phone: [facility] [employer] 06-11-2022 07:53-0400 Heart rate 56 /min Viktor Otto MD Work Phone: [facility] [employer] 06-11-2022 07:07-0400 Body temperature 97.2 [degF] Viktor Otto MD Work Phone: [facility] [employer] [employer] 06-11-2022 07:07-0400 Diastolic blood pressure 62 mm[Hg] Viktor Otto MD Work Phone: [facility] [employer] 06-11-2022 07:07-0400 Respiratory rate 16 /min Viktor Otto MD Work Phone: [facility] [employer] 06-11-2022 07:07-0400 SaO2% (BldA) [Mass fraction] 98 % Viktor Otto MD Work Phone: [facility] [employer] 06-11-2022 07:07-0400 Systolic blood pressure 122 mm[Hg] Viktor Otto MD Work Phone: [facility] [employer] 06-11-2022 02:45-0400 Body height 165.1 cm Viktor Otto MD Work Phone: [facility] 06-11-2022 02:45-0400 Body mass index (BMI) [Ratio] 18.39 kg/m2 Viktor Otto MD Work Phone: [facility] 06-11-2022 02:45-0400 Body weight 50.12 kg Viktor Otto MD Work Phone: [facility] 04-28-2022 14:01-0400 Body height 165.1 cm Jr Sinha MD Work Phone: [facility] 04-28-2022 14:01-0400 Body temperature 97 [degF] Jr Sinha MD Work Phone: [facility] 04-28-2022 14:01-0400 Body weight 47.63 kg Jr Sniha MD Work Phone: [facility] 04-28-2022 14:01-0400 Diastolic blood pressure 52 mm[Hg] Jr Sinha MD Work Phone: [facility] 04-28-2022 14:01-0400 Heart rate 75 /min Jr Sinha MD Work Phone: [facility] 04-28-2022 14:01-0400 SaO2% (BldA) [Mass fraction] 100 % Jr Sinha MD Work Phone: [facility] 04-28-2022 14:01-0400 Systolic blood pressure 119 mm[Hg] Jr Sinha MD Work Phone: [facility] 04-26-2022 00:14-0400 Diastolic blood pressure 55 mm[Hg] Margarito Gonsales MD Work Phone: [facility] [place] 04-26-2022 00:14-0400 Heart rate 63 /min Margarito Gonsales MD Work Phone: [facility] [employer] 04-26-2022 00:14-0400 Respiratory rate 12 /min Margarito Gonsales MD Work Phone: [facility] 04-26-2022 00:14-0400 SaO2% (BldA) [Mass fraction] 99 % Margarito Gonsales MD Work Phone: [facility] 04-26-2022 00:14-0400 Systolic blood pressure 117 mm[Hg] Margarito Gonsales MD Work Phone: [facility] 04-25-2022 20:34-0400 Body temperature 98.1 [degF] Margarito Gonsales MD Work Phone: [facility] Encounters Encounter Date Encounter Type Care Provider Facility Start: 10-19-2023 End: 10-22-2023 Emergency department [facility] Start: 10-19-2023 End: 10-21-2023 Evaluation and management of inpatient [facility] Start: 10-19-2023 End: 10-21-2023 Evaluation and management of inpatient Tomy Gomez MD Work Phone: [facility] Comment on above: COVID-19 (Primary Dx ); Generalized weakness; Hypokalemia Start: 10-18-2023 End: 10-19-2023 Emergency department patient visit RAGHAVENDRA NEGRETE [facility] Start: 10-18-2023 End: 10-18-2023 Emergency department patient visit CORINA A [facility] Start: 10-02-2023 End: 10-02-2023 ambulatory CORINA A [facility] Start: 08-25-2023 ambulatory CORINA EUGENIO [facility]ity:[facility] Start: 07-11-2023 Telephone encounter Rosana chaidez MD Work Phone: General Surgery Start: 07-11-2023 End: 07-11-2023 ambulatory TOMS SINHA Facility:[facility] Start: 07-11-2023 End: 07-11-2023 Patient encounter procedure Rosana Mchugh MD Work Phone: Gastroenterology Comment on above: Abdominal distension (Primary Dx); History of partial gastrectomy; Gastric ulcer with perforation, unspecified chronicity (HCC); Hx of cholecystectomy; Narcotic bowel syndrome (HCC) Start: 06-26-2023 End: 06-26-2023 ambulatory NON STAFF Facility:[facility] Start: 06-26-2023 End: 06-26-2023 ambulatory NON STAFF [facility] Work Phone: Start: 06-26-2023 End: 06-26-2023 Patient encounter procedure MD Jr Sinha Work Phone: [facility] Work Phone: Start: 06-15-2023 End: 06-15-2023 ambulatory JR SINHA Facility:[facility] Start: 06-15-2023 End: 06-15-2023 Patient encounter procedure Jr Sinha MD Work Phone: General Surgery Comment on above: 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) Start: 12-05-2022 Telephone encounter Gene Quiroz RNloft worker Comment on above: Education Of Patient /family Start: 06-13-2022 End: 06-15-2022 Evaluation and management of inpatient JALEEL RAYA [facility] Start: 06-12-2022 End: 06-15-2022 Evaluation and management of inpatient Owen Lin MD Work Phone: [employer] [facility] Start: 06-10-2022 End: 06-11-2022 ambulatory RUBEN Kapoor ADAKOKI [facility] Start: 06-10-2022 End: 06-11-2022 Emergency department patient visit Viktor Otto MD Work Phone: [facility] Observation Comment on above: Chest pain, unspecif ied type (Primary Dx) Start: 04-28-2022 End: 04-28-2022 Patient encounter procedure Jr Sinha MD Work Phone: General Surgery Comment on above: 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); Perforated ulcer (HCC) Start: 04-25-2022 End: 04-26-2022 ambulatory SHEY Jolene FARR [facility] Start: 04-25-2022 End: 04-26-2022 Emergency department patient visit Margarito Gonsales MD Work Phone: [facility] Comment on above: General weakness (Pr imary Dx) Start: 03-31-2022 Telephone encounter Jr bradley MD Work Phone: General Surgery Comment on above: Patient Question Start: 02-04-2022 Telephone encounter Ricci baca RN Work Phone: General Surgery Comment on above: incorrectly schedule d Patient Update Start: 02-01-2022 Orders Only Donna Carver MD Work Phone: [facility] Comment on above: Special screening fo r malignant neoplasms, colon (Primary Dx) Start: 12-09-2020 Encounter for preprocedural laboratory examination DR DOCTOR SAAMNIEGO [facility] Start: 12-07-2020 End: 12-07-[address] DOCTOR SAMANIEGO Facility:[facility] Start: 12-07-2020 End: 12-07-2020 Encounter for preprocedural laboratory examination DR DOCTOR SAMANIEGO Facility:[facility] Procedures Date Procedure Procedure Detail Performing Clinician Start: 10-21-2023 Basic metabolic pane l calcium total Leliamable Mcdonough MOLD REPAIRER-PRECISION AGRICULTURE TECHNICIAN Work Phone: Start: 10-20-2023 Drug tst prsmv instr mnt chem analyzers pr date Ricci Aguirre MOLD REPAIRER-PRECISION AGRICULTURE TECHNICIAN Work Phone: Start: 10-20-2023 Urnls dip stick/tabl et rgnt auto w/o microscopy James Wilson MOLD REPAIRER-PRECISION AGRICULTURE TECHNICIAN Work Phone: Start: 10-20-2023 Procalcitonin (pct) Lynn Wilson MOLD REPAIRER-PRECISION AGRICULTURE TECHNICIAN Work Phone: Start: 10-20-2023 Blood count complete auto&auto difrntl wbc Lelia Jamisonmaris Mcdonough MOLD REPAIRER-PRECISION AGRICULTURE TECHNICIAN Work Phone: Start: 10-19-2023 Radiologic exam ches t single view Ricci Aguirre [facility]PA[facility] Work Phone: Start: 10-19-2023 SARS/FLU A+B/RSV BY NAAT/MOLECULAR (M4RT COLLECTION TUBE) Ricci Aguirre [facility] Work Phone: Start: 10-19-2023 Ecg routine ecg w/le ast 12 lds trcg only w/o i&r Ricci gAuirre [facility] Work Phone: Start: 10-19-2023 End: 10-19-2023 Culture bacterial blood aerobic w/id isolates Ricci Aguirre [facility] Work Phone: Start: 10-19-2023 End: 10-19-2023 Comprehensive metabolic panel Ricci Aguirre [facility] Work Phone: Start: 10-19-2023 Ethanol [Mass/volume ] in Serum or Plasma Ricci Aguirre [facility] Work Phone: Start: 06-15-2022 Glucose blood reagen t strip Praneeth Mata DO Work Phone: Start: 06-15-2022 Blood count complete auto&auto difrntl wbc Skip Armas MD Work Phone: Start: 06-14-2022 Glucose blood reagen t strip Praneeth Mata DO Work Phone: Start: 06-14-2022 Glucose blood reagen t strip Agustinad Richa Mata DO Work Phone: Start: 06-14-2022 End: 06-14-2022 Cardiac catheterization Skip Armas MD Work Phone: Start: 06-14-2022 Blood count complete auto&auto difrntl wbc Praneeth Mata DO Work Phone: Start: 06-14-2022 End: 06-14-2022 Assay of ferritin Praneeth Mata DO Work Phone: Start: 06-14-2022 BASIC METABOLIC PANE L W/ REFLEX TO MG FOR LOW K Praneeth Mata DO Work Phone: Start: 06-14-2022 Glucose blood reagen t strip Praneeth Mata DO Work Phone: Start: 06-13-2022 Glucose blood reagen t strip Jaleel Mckennau DO Work Phone: Start: 06-13-2022 Glucose blood reagen t strip Jaleel Raya DO Work Phone: Start: 06-13-2022 Glucose blood reagen t strip Jaleel Raya DO Work Phone: Start: 06-13-2022 End: 06-13-2022 Assay of magnesium Jimena Bryant MOLD REPAIRER - PRECISION AGRICULTURE TECHNICIAN Work Phone: Start: 06-13-2022 Lipid panel Jimena Bryant MOLD REPAIRER - PRECISION AGRICULTURE TECHNICIAN Work Phone: Start: 06-13-2022 Ecg routine ecg w/le ast 12 lds i&r only Jimena Bryant MOLD REPAIRER - PRECISION AGRICULTURE TECHNICIAN Work Phone: Start: 06-13-2022 Assay of troponin quantitative Jimena Bryant MOLD REPAIRER - PRECISION AGRICULTURE TECHNICIAN Work Phone: Start: 06-12-2022 End: 06-13-2022 Assay of troponin quantitative Jimena Bryant MOLD REPAIRER - PRECISION AGRICULTURE TECHNICIAN Work Phone: Start: 06-11-2022 Glucose blood reagen t strip Ruben Winkler MD Work Phone: Start: 06-11-2022 Ecg routine ecg w/le ast 12 lds w/i&r Karen Treadwell DO Work Phone: Start: 06-11-2022 End: 06-11-2022 Natriuretic peptide Karen Treadwell DO Work Phone: Start: 06-10-2022 COVID-19, RAPID Karen Treadwell DO Work Phone: Start: 06-10-2022 Assay of troponin quantitative Karen Treadwell DO Work Phone: Start: 06-10-2022 Basic metabolic pane l calcium total Karen Treadwell DO Work Phone: Start: 06-10-2022 Radiologic exam ches t single view Karen Treadwell DO Work Phone: Start: 06-10-2022 Ecg routine ecg w/le ast 12 lds w/i&r Karen Treadwell DO Work Phone: Start: 04-25-2022 COVID-19, RAPID Glynn Nowak MD Work Phone: Start: 04-25-2022 Assay of troponin quantitative Margarito Gonsales MD Work Phone: Start: 04-25-2022 Radiologic exam ches t 2 views Glynn Nowak MD Work Phone: Start: 04-25-2022 Urinalysis microscop ic only Glynn Nowak MD Work Phone: Start: 04-25-2022 Urnls dip stick/tabl et rgnt auto w/o microscopy Glynn Nowak MD Work Phone: Start: 04-25-2022 Basic metabolic pane l calcium total Glynn Nowak MD Work Phone: Start: 05-31-2021 Mammography Jr bradley MD Work Phone: Start: 12-10-2020 Colonoscopy Donna Elise MD Work Phone: Start: 09-12-2020 Antibody screen Comment on above: Performed By: #### C BC, BMP, PHOS, MG1 #### [place] [address] Start: 08-28-2020 Antibody screen Comment on above: Performed By: #### C BC, BMP, PHOS, MG1 #### [place] [address] Start: 04-18-2020 History of placement of stent for coronary artery disease History of heart artery stent Margarito Gonsales MD Work Phone: Start: 12-24-2018 Colonoscopy Margarito salomon MD Work Phone: Start: 05-21-2018 History of placement of stent for coronary artery disease S/P drug eluting coronary stent placement - LCX 05/21/18 - Dr. yeyo Gonsales MD Work Phone: History of cholecystectomy Hx of cholecystectomy Rosana Mchugh MD Work Phone: Plan of Treatment Date Care Activity Detail Author Start: 12-24-2028 Screening for malign ant neoplasm of colon [facility] [employer] Start: 07-11-2024 BP Controlled (<130/80) BP Controlle d (<130/80) [facility] Start: 06-15-2024 BP CONTROLLED (<130/80) BP CONTROLLE D (<130/80) [facility] Start: 12-07-2023 Hemoglobin A1c/Hemoglobin.total in Blood HBA1C [facility] Start: 11-16-2023 End: 11-16-2023 Patient encounter procedure 11/16/2023 10:00 AM EST Office Visit [facility] [address] [place] [phone] Hosea Morelos MD [facility] [address] [place] [address] [facility] Start: 06-16-2023 Covid-19 Vaccine () Covid-19 Vaccine () [facility] Start: 06-16-2023 Influenza vaccination [facility] Start: 06-13-2023 Lipid panel Lipids [place] [employer] Start: 04-28-2023 BP CONTROLLED (<130/80) BP CONTROLLE D (<130/80) [facility] Start: 02-10-2023 COLORECTAL CANCER SCREENING COLORECTAL CANCER SCREENING [facility] Start: 02-10-2023 FECAL OCCULT BLOOD FECAL OCCULT BLOO D [facility] Start: 02-10-2023 Screening for malign ant neoplasm of colon FIT/FOBT: Average risk [facility] Start: 12-11-2022 Hemoglobin A1c measurement A1C test (Diabetic or Prediabetic) [facility] Start: 10-16-2022 DEPRESSION ASSESSMENT DEPRESSION ASS ESSMENT [facility] Start: 09-29-2022 BP CONTROLLED (<130/80) BP CONTROLLE D (<130/80) [facility] Start: 06-16-2022 Influenza vaccination [facility] Start: 06-10-2022 Hemoglobin A1c/Hemoglobin.total in Blood HBA1C [facility] Start: 05-31-2022 Mammography [facility] Start: 04-28-2022 End: 06-28-2022 CREATININE BLD CREATININE BLD Lab Routine Perforated ulcer (HCC) Expected: 04/28/2022, Expires: 06/28/2022 [facility] Work Phone: Comment on above: Expected: 04/28/2022 , Expires: 06/28/2022 Start: 04-28-2022 End: 05-28-2023 Ct abdomen & pelvis w/contrast material CT ABD/PEL W IVCON Radiology Routine Perforated ulcer (HCC) Expected: 04/28/2022, Expires: 05/28/2023 [facility] Work Phone: Comment on above: Expected: 04/28/2022 , Expires: 05/28/2023 Start: 12-10-2021 Colonoscopy COLONOSCOPY [facility] Start: 12-10-2021 COLORECTAL CANCER SCREENING COLORECTAL CANCER SCREENING [facility] Start: 2021 Hepatitis B Vaccine (1 of 3 - Risk 3-dose series) Hepatitis B Vaccine (1 of 3 - Risk 3-dose series) [facility] Start: 2021 RSV Vaccine (1 - 1-d ose 60+ series) RSV Vaccine (1 - 1-dose 60+ series) [facility] Start: 04-14-2021 COVID-19 VACCINE (3 - Moderna series) COVID-19 VACCINE (3 - Moderna series) [facility] Start: 06-21-2019 Screening for malign ant neoplasm of breast Breast cancer screen [facility] Start: 03-27-2019 Lipid panel Lipids [place] [employer] [facility] Start: 06-21-2018 Screening for malign ant neoplasm of breast Breast cancer screen [facility] Start: 2011 Screening for malign ant neoplasm of breast Breast cancer screen [facility] Start: 2011 Screening for malign ant neoplasm of lung Low dose CT lung screening [facility] Start: 2011 Shingles vaccine (1 of 2) Shingles vaccine (1 of 2) [facility] Start: 2011 SHINGRIX VACCINE (1 of 2) SHINGRIX VACCINE (1 of 2) [facility] Start: 2006 COLOGUARD (FIT-DNA) COLOGUARD (FIT-D NA) [facility] Start: [address] COLONOGRAPHY [facility] Start: 2006 FECAL OCCULT BLOOD FECAL OCCULT BLOO D [facility] Start: 2006 Screening for malign ant neoplasm of colon [facility] Start: 2006 SIGMOIDOSCOPY SIGMOIDOSCOPY [facility] Start: 07-06-2005 Urine microalbumin profile DTaP,Tdap,Td Vaccine (1 - Tdap) [facility] Start: 2001 Mammography MAMMOGRAM [facility] Start: 1991 HPV TESTING HPV TESTING [facility] Start: 1991 Screening for malign ant neoplasm of cervix [facility] Start: 1982 PAP TESTING PAP TESTING [facility] Start: 1982 Screening for malign ant neoplasm of cervix Pap smear [facility] Start: 1980 DTaP/Tdap/Td vaccine (1 - Tdap) DTaP/Tdap/Td vaccine (1 - Tdap) [facility] Start: 1980 SHINGRIX VACCINE (1 of 2) SHINGRIX VACCINE (1 of 2) [facility] Start: 1980 Urine microalbumin profile [facility] Start: 1979 ANNUAL PCP 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 TATYANA DISEASE VISIT ANNUAL PCP TEAM CHRONIC DISEASE VISIT [facility] Start: 1979 Diabetic retinal exam Diabetic retin al exam [facility] Start: 1979 Hepatitis B surface antibody level LDL CHOLESTEROL [facility] Start: 1979 HEPATITIS C SCREENING HEPATITIS C SC REENING [facility] Start: 1979 Hepatitis C screening Hepatitis C sc reen [facility] Start: 1979 HIV SCREENING HIV SCREENING [facility] Start: 1979 Urine screening for protein Diabetic microalbuminuria test [facility] Start: 1977 ONE PNEUMOVAX PRIOR TO AGE 65 ONE PNEUMOVAX PRIOR TO AGE 65 [facility] Start: 1976 HIV screening HIV screen [facility] Start: 1973 Adult depression screening assessment DEPRESSION SCREENING [facility] Start: 1973 Depression Screen Depression Screen [facility] Start: 1971 3 comp foot exam completed DIABETIC FOOT EXAM [facility] Start: 1971 Diabetic foot examination Diabetic foot exam [facility] Start: 1971 Hemoglobin A1c measurement A1C test (Diabetic or Prediabetic) [facility] Start: 1971 Hepatitis B screening URINE AL BUMIN:CREATININE RATIO [facility] Start: 1971 Hepatitis C antibody , confirmatory test DILATED RETINAL EXAM [facility] Start: 1971 Lipid panel Lipids [facility] Start: 1967 PNEUMOCOCCAL (1 - PCV) PNEUMOCOCCAL (1 - PCV) [facility] Start: 1967 Pneumococcal 0-64 ye ars Vaccine (1 - PCV) Pneumococcal 0-64 years Vaccine (1 - PCV) [facility] Start: 1967 Pneumococcal vaccination Pneum ococcal Vaccine (1 - PCV) [facility] Start: 1966 COVID-19 VACCINE (#1) COVID-19 VACCI NE (#1) [facility] Start: 1966 COVID-19 VACCINE (1) COVID-19 VACCIN E (1) [facility] Start: 1961 COVID-19 VACCINE (#1) COVID-19 VACCI NE (#1) [facility] Bacteria identified in Blood by Aerobe culture [facility] End: 10-19-2023 Bacteria identified in Urine by Culture [employer] Work Phone: Comment on above: STAT for 1 Occurrenc es starting 10/19/2023 until 10/19/2023 End: 10-23-2023 Basic metabolic 2000 panel - Serum or Plasma Basic Metabolic Panel Lab Routine Lab max of 3 days, Daily, for lab use only for 3 Days starting 10/21/2023 until 10/23/2023, 1 completed [facility] Comment on above: Lab max of 3 days, D aily, for lab use only for 3 Days starting 10/21/2023 until 10/23/2023, 1 completed End: 06-13-2022 Catheterization and angiography procedure details panel Cardiac Catheterization Cardiac Cath Routine One Time for 1 Occurrences starting 06/13/2022 until 06/13/2022 [facility] Work Phone: Comment on above: One Time for 1 Occur rences starting 06/13/2022 until 06/13/2022 End: 10-22-2023 CBC W Auto Differential panel - Blood CBC auto differential Lab Routine Lab max of 3 days, Daily, for lab use only for 3 Days starting 10/20/2023 until 10/22/2023, 2 completed [facility] Comment on above: Lab max of 3 days, D aily, for lab use only for 3 Days starting 10/20/2023 until 10/22/2023, 2 completed Continuous pulse oximetry Pulse oximetry, continuous Respiratory Care STAT Every 4hr until discontinued starting 04/26/2022 [employer] Phone: Comment on above: Every 4hr until disc ontinued starting 04/26/2022 Continuous pulse oximetry Pulse oximetry, continuous Respiratory Care Routine Every 4hr until discontinued starting 06/13/2022 [employer] Phone: Comment on above: Every 4hr until disc ontinued starting 06/13/2022 End: 07-11-2024 EGD DIAGNOSTIC EGD DIAGNOSTIC Endoscopy Routine Abdominal distension History of partial gastrectomy Gastric ulcer with perforation, unspecified chronicity (HCC) Hx of cholecystectomy 1 Occurrences starting 07/11/2023 until 07/11/2024 [facility] Work Phone: Comment on above: 1 Occurrences starti ng 07/11/2023 until 07/11/2024 EKG 12 Lead EKG 12 Lead ECG STAT 06/10/2022 2:04 PM EDT [facility] Phone: EKG 12 Lead EKG 12 Lead ECG Routine 06/11/2022 6:00 AM EDT [facility] Phone: EKG 12 lead EKG 12 lead ECG Routine As Needed until discontinued starting 06/12/2022 [employer] Phone: Comment on above: As Needed until disc ontinued starting 06/12/2022 Glucose [Mass/volume ] in Serum or Plasma [facility] Phone: Comment on above: As Needed until disc ontinued starting 06/12/2022 4X Daily (AC & HS) u ntil discontinued starting 06/13/2022 End: 06-15-2022 JAK2 GENE MUTATION, QUANTITATIVE JAK2 GENE MUTATION, QUANTITATIVE Lab Routine One Time for 1 Occurrences starting 06/15/2022 until 06/15/2022 [employer] Phone: Comment on above: One Time for 1 Occur rences starting 06/15/2022 until 06/15/2022 Oxygen Therapy - Maintain SpO2: 90%; *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 Guidelines for O2: Yes; Document: \[email or web address]\epi c\EPIC_Reference\Orders\ Respiratory Care Guidelines\CPG Oxygen 2020.pdf Oxygen Therapy - Maintain SpO2: 90%; *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 Guidelines for O2: Yes; Document: \[email or web address]\epic \EPIC_Reference\Orders\Re spiratory Care Guidelines\CPG Oxygen 2020.pdf Respiratory Care Routine As Needed until discontinued starting 10/20/2023 [facility] Work Phone: Comment on above: As Needed until disc ontinued starting 10/20/2023 End: 04-25-2022 Oxygen therapy [Minimum Data Set] Initiate Oxygen Therapy Protocol Respiratory Care STAT Once for 1 Occurrences starting 04/25/2022 until 04/25/2022 [employer] Phone: Comment on above: Once for 1 Occurrenc es starting 04/25/2022 until 04/25/2022 Oxygen therapy [Mini mum Data Set] Initiate Oxygen Therapy Protocol Respiratory Care Routine As Needed until discontinued starting 06/12/2022 [facility] Phone: Comment on above: As Needed until disc ontinued starting 06/12/2022 Oxygen therapy [[facility] Data Set] Initiate Oxygen Therapy Protocol Respiratory Care Routine As Needed until discontinued starting 06/14/2022 [employer] Phone: Comment on above: As Needed until disc ontinued starting 06/14/2022 End: 04-25-2022 Troponin I.cardiac [Mass/volume] in Serum or Plasma [facility] Phone: Comment on above: Once for 1 Occurrenc es starting 04/25/2022 until 04/25/2022 End: 07-14-2024 XR GI SMALL BOWEL FOLLOW-THRU XR GI SMALL BOWEL FOLLOW-THRU Radiology Routine Neuroendocrine carcinoma of small bowel (HCC) 1 Occurrences starting 06/15/2023 until 07/14/2024 [employer] [facility] [employer] Work Phone: Comment on above: 1 Occurrences starti ng 06/15/2023 until 07/14/2024 End: 07-14-2024 XR UPPER GI SINGLE CONTRAST XR UPPER GI SINGLE CONTRAST Radiology Routine Neuroendocrine carcinoma of small bowel (HCC) 1 Occurrences starting 06/15/2023 until 07/14/2024 [employer] [facility] [employer] Work Phone: Comment on above: 1 Occurrences starti ng 06/15/2023 until 07/14/2024 [facility] Payers Date Payer Category Payer Self-pay 2014 Unknown [id number] 2014 Unknown [id number] 2005 Unknown [facility] [id number] 2005-Present [phone] [address] [address] [place] [address] Indemnity [id number] 2005 Unknown [id number] 1961 Unknown [id number] 1961 Unknown [id number] 1961 Unknown [id number] 1961 Unknown [id number] 1961 Unknown [id number] [id number] 6 1961 Unknown [id number] [id number] 6 1961 Unknown [id number] [id number] 6 1961 Unknown [id number] [id number] 6 1961 Unknown [id number] [id number] 6 1961 Unknown [id number] [id number] 6 1961 Unknown [id number] [id number] 6 1959 Unknown [id number] .[id number] Unknown [id number] Social History Date Type Detail Facility Start: 08-28-2020 End: 10-02-2023 Tobacco smoking status ILIS Smokes tobacco daily [facility] Start: 05-11-1980 End: 06-11-2022 History of tobacco use Cigarette Smoker [facility] Start: 08-28-2020 End: 10-20-2023 Cigarettes smoked current (pack per day) - Reported 1 [facility] Start: 08-28-2020 End: 10-02-2023 Tobacco use and exposure Smokeless tobacco non-user [facility] Start: 09-29-2021 End: 07-11-2023 Alcohol intake Lifetime non-drinker (finding) [facility] Start: 08-31-2020 End: 09-01-2020 History SDOH Alcohol Frequency 1 [facility] Start: 09-01-2020 History SDOH Financial 4 [facility] Start: 09-01-2020 History SDOH Transport Med 2 [facility] Start: 1960 Sex Assigned At Female [facility] Start: 01-22-2022 End: 06-13-2022 Exposure to SARS-CoV-2 (event) Not sure [facility] Start: 04-22-2020 End: 06-14-2022 Alcohol intake Current drinker of alcohol (finding) [employer] Phone: Start: 03-26-2018 History SDOH Alcohol Comment once in a while [employer] Phone: Start: 03-26-2018 Tobacco Comment smoking cessation ordered [employer] Phone: Start: 1960 Sex Assigned At Not on file [employer] Phone: Start: 06-11-2022 Tobacco smoking status ILIS Ex-smoker [facility] Start: 05-11-1980 End: 06-11-2022 History of tobacco use Current smoker [employer] Phone: Start: 06-11-2022 Tobacco Comment Refused smoking cessation counseling education given on risk vs benefits of quitting smoking verbally [employer] Phone: Start: 08-31-2020 End: 10-20-2023 Alcohol Use Disorder Identification Test - Consumption [AUDIT-C] [facility] How often to you hav e a drink containing alcohol? Never [facility] Average Number of Drinks Not on file [facility] How hard is it for y ou to pay for the very basics like food, housing, medical care, and heating Not very hard [facility] (I/We) worried wheth er (my/our) food would run out before (I/we) got money to buy more. Never true [facility] Start: 07-03-2020 Gender identity Identifies as female gender (finding) [facility] Start: 07-03-2020 Sexual orientation Heterosexual (finding) [facility] Start: 10-20-2023 Alcohol intake Ex-drinker (finding) [facility] Has the [employer], [place] threatened to shut off services in your home in past 12Mo No [facility] Are you now , , , , never or living with a partner? [place] Do you feel stress - tense, restless, nervous, or anxious, or unable to sleep at night because your mind is troubled all the time - these days [OSQ] Only a little [facility] Medical Equipment Procedure Code Equipment Code Equipment Origin al Text Equipment Identifier Dates TEST FASTING QAM [id number] Start: 08-08-2017 Comment on above: TEST FASTING QAM Goals Date Patient Goal Desired Activity /State Personal health goal Comment on above: Formatting of this n ote might be different from the original. Evaluation of progress towards goal: safe transition from hospital to home with family support. Clinical Notes 08-31-2020 to 10-21-2023 Tiana Cardoza RN - 10/21/2023 1:28 PM Zach Cardoza RN - 10/21/2023 1:28 PM ESTPlan of Care - Tiana Cardoza RN - 10/21/2023 12:18 PM Trish Crook MD - 10/21/2023 12:12 PM EST Note Date & Type Note Facility 10-21-2023 Nurse Note Patient and daughter at bedside educated on dc medcations, follow up appt, how to care for rib fx at home and covid precautions. Pt is leaving in stable condition to a safe environment to care of at home, no home needs, iv removed.. leaving via wheelchair to private vehicle with family. All questions answered per pt and family. [facility]-21-2023 Nurse Note Patient and daughter at bedside educated on dc medcations, follow up appt, how to care for rib fx at home and covid precautions. Pt is leaving in stable condition to a safe environment to care of at home, no home needs, iv removed.. leaving via wheelchair to private vehicle with family. All questions answered per pt and family. documented in this encounter [facility] 10-21-2023 Plan of care note Problem: Pain Goal: Patient goal is pain score less than 4, able to rest, and participant in treatment plan as appropriate Description: INTERVENTIONS: 1. Encourage patient or legal community health program representative to report early pain and ask for pain medicine when needed 2. Assess pain using appropriate pain scale and include the scale used when documenting 3. Administer analgesics based on type and severity of pain and evaluate response within appropriate time frame 4. Implement non-pharmacological measures as appropriate and evaluate response 5. Consider cultural and social influences on pain and pain management 6. Notify LIP if interventions ineffective or patient reports new pain 7. Monitor vital signs including pulse ox, end-tidal CO2 based on pain intervention 8. Reassess pain per policy 9. Teach patient or legal community health program representative interventions for comforting Outcome: Progressing Note: Evaluation of progress towards goal: PT REPORTS IMPROVED PAIN CONTROL WITH CURRENT MEDICATIONS, EDUCATED ON NONPHARMOCOLOGIC TECHNIQUES TO AID IN COMFORT. RESTING COMFORTABLY IN CHAIR IN NO ACUTE DISTRESS, ABLE TO AMBULATE WELL. [facility] 10-21-2023 Miscellaneous Notes Problem: Pain Goal: Patient goal is pain score less than 4, able to rest, and participant in treatment plan as appropriate Description: INTERVENTIONS: 1. Encourage patient or legal community health program representative to report early pain and ask for pain medicine when needed 2. Assess pain using appropriate pain scale and include the scale used when documenting 3. Administer analgesics based on type and severity of pain and evaluate response within appropriate time frame 4. Implement non-pharmacological measures as appropriate and evaluate response 5. Consider cultural and social influences on pain and pain management 6. Notify LIP if interventions ineffective or patient reports new pain 7. Monitor vital signs including pulse ox, end-tidal CO2 based on pain intervention 8. Reassess pain per policy 9. Teach patient or legal community health program representative interventions for comforting Outcome: Progressing Note: Evaluation of progress towards goal: PT REPORTS IMPROVED PAIN CONTROL WITH CURRENT MEDICATIONS, EDUCATED ON NONPHARMOCOLOGIC TECHNIQUES TO AID IN COMFORT. RESTING COMFORTABLY IN CHAIR IN NO ACUTE DISTRESS, ABLE TO AMBULATE WELL. Physical Therapy Treatment Discharge Recommendations PT Recommendations: Home Home Recommendations: Intermittent caregiver support for: (As needed for high level mobility and ADL's) Post Discharge Therapy Recommendations: Home Physical Therapy 6 Clicks: Basic Mobility Turning from your back to your side while in a flat bed without using bed rails?: None Moving from lying on your back to sitting on side of flat bed without using bed rails?: None Moving to and from bed to a chair (including w/c)?: None Standing up from a chair using your arms (e.g. w/c or bedside chair)?: None To walk in hospital room?: None Climbing 3-5 steps with a railing?: A little Scoring 6 Clicks: Basic Mobility Raw Score: 23 CMS G Code Modifier: CI PT Treatment/Interventions: Functional transfer training, LE strengthening/ROM, Endurance training, Balance, Stair training, Bed mobility, Gait training, Functional activities, Neuromuscular reeducation PT Frequency: 2-3days/week PT Duration: 10 days Patient Response to Treatment: Progressing toward goals Assessment Patient Assessment Therapy Problem List: Abnormal posture, Decreased balance, Decreased endurance, Decreased mobility, Decreased cognition, Decreased LE ROM, Decreased LE strength Patient Response to Treatment: Progressing toward goals Mood/Affect: Appropriate for circumstances Rehab Prognosis: Good, With continued PT status post acute discharge Visit RN Communication: Yes Medical Record Reviewed: Yes PT Type of Visit: Treatment Precautions Activity: (OK to see per RN, Cat) Equipment: rolling walker, nonskid socks Telemetry/Digital Media Manager: Yes Oxygen Used: Room Air Other: fall risk, respiratory precautions Pain Assessment Pain Assessment: 0-10 Pain Score: 8 Pain Type: Acute pain Pain Location: Rib cage Pain Orientation: Left Pain Descriptors: Aching Pain Frequency: Constant/continuous Cognition Memory: Decreased recall of recent events Orientation Level: Oriented X4 Bed Mobility Supine to Sit: Independent Other: Patient left up in chair at end of session. Transfers Sit to Stand: Independent Stand to Sit: Independent Gait Base of Support: Narrow Pattern: Decreased kaylan Gait Assistance: Independent Assistive Device: Rolling walker Gait Distance: (30ft) 2 Turns: Yes Balance Sitting Balance: Static: Good Sitting Balance: Dynamic: Good Standing Balance: Static: Good, Fair Standing Balance: Dynamic: Good, Fair Activity Tolerance Endurance: Tolerates <30 minutes activity WITHOUT vital sign changes Plan Physical Therapy Care Plan Physical Therapy Care Plan (Active) Template: PT - Physical Therapy Problem: Gait Dates: Start: 10/20/23 Disciplines: PT Goal: Patient will perform gait with Stand By Assist Dates: Start: 10/20/23 Expected End: 10/29/23 Description: Pt to be able to ambulate 100ft with walker to be able to safely manage household distances at discharge. Disciplines: PT Outcomes Date/Time User Outcome 10/21/23945 Sita Graham PT Progressing Goal Note filed on 10/21/23945 by Sita Graham PT Evaluation of progress towards goal: IND amb 30' with RW Problem: Stairs/Curb Dates: Start: 10/20/23 Disciplines: PT Goal: Patient will perform stairs/curb with Minimum Assist Dates: Start: 10/20/23 Expected End: 10/29/23 Description: Pt to ascend and descend 2 stairs with no handrails to be able to safely enter house at discharge. Disciplines: PT Problem: Standing Balance Dates: Start: 10/20/23 Disciplines: PT Goal: Improve balance to good Dates: Start: 10/20/23 Expected End: 10/29/23 Description: Static Dynamic Pt to have balance of good in order to decrease risk of falls at discharge. Disciplines: PT Goal Note filed on 10/21/2347 by Sita Graham PT Evaluation of progress towards goal: Fair +/Good- Standing balance Problem: Strength Dates: Start: 10/20/23 Disciplines: PT Goal: Improve strength Dates: Start: 10/20/23 Expected End: 10/29/23 Description: Of extremity/ location: bilateral LE's to at least 4+/5 To facilitate: improved transfers Disciplines: PT Outcomes Date/Time User Outcome 10/21/23945 Sita Graham PT Progressing Goal Note filed on 10/21/23945 by Sita Graham PT Evaluation of progress towards goal: Patient completed supine exercises to increase LE strength Problem: Transfers Dates: Start: 10/20/23 Disciplines: PT Goal: Patient will perform transfers with Stand By Assist Dates: Start: 10/20/23 Expected End: 10/29/23 Description: Goal Description: Pt to be able to safely transfer with least amount of assistance to demonstrate decreased need for caregiver assistance and ease with home transfers. Disciplines: PT Outcomes Date/Time User Outcome 10/21/23945 Sita Graham PT Progressing Goal Note filed on 10/21/23945 by Sita Graham PT Evaluation of progress towards goal: IND sit to stand and stand to sit today Physical Therapy Care Plan (Resolved) There are no resolved problems. Principal Problem: COVID-19 Active Problems: Diabetes mellitus type 2, controlled ([facility]) Anxiety disorder, unspecified Chronic diastolic (congestive) heart failure ([facility]) Dyslipidemia Essential hypertension Hypokalemia Generalized weakness Severe malnutrition ([facility]) Smoker Problem: Pain Goal: Patient goal is pain score less than 4, able to rest, and participant in treatment plan as appropriate Description: INTERVENTIONS: 1. Encourage patient or legal community health program representative to report early pain and ask for pain medicine when needed 2. Assess pain using appropriate pain scale and include the scale used when documenting 3. Administer analgesics based on type and severity of pain and evaluate response within appropriate time frame 4. Implement non-pharmacological measures as appropriate and evaluate response 5. Consider cultural and social influences on pain and pain management 6. Notify LIP if interventions ineffective or patient reports new pain 7. Monitor vital signs including pulse ox, end-tidal CO2 based on pain intervention 8. Reassess pain per policy 9. Teach patient or legal community health program representative interventions for comforting Outcome: Progressing Note: Evaluation of progress towards goal: Patient able to report pain on 0-10 scale. Pain medications provided as ordered. Problem: Safety Goal: Patient will be injury free during hospitalization Description: INTERVENTIONS: 1. Assess patient's risk for falls and implement fall prevention plan of care per policy 2. Provide and maintain a safe environment 3. Proper use of double Identifiers 4. Medication administration using the 5 rights 5. Hand hygiene 6. Specimens are labeled at the bedside 7. Instruct patient/ patient community health program representative about use of safety devices 8. Include patient/ patient community health program representative in decisions related to safety Outcome: Progressing Note: Evaluation of progress towards goal: Patient remains free from falls and injury. Call light in reach and personal items in reach on bedside table. Needs assessed hourly. 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 Breast lesion 2017 ATYPICAL HYPERPLASIA LEFT BREAST CAD (coronary artery disease) S/P [place] WITH STENTS 03/2018 & 04/2018 Cancer ([facility] CHF (congestive heart failure) ([facility] Clotting disorder ([facility]) Diabetes mellitus ([facility]) DX 05/2017 Diabetes mellitus type 2, controlled ([facility]) Essential hypertension 08/28/2020 History of spleen injury spleen repair 1984 Insomnia Myocardial infarction ([facility]) 03/30/2018 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 PAGE, atypical ductal hyperplasia BREAST CYST EXCISION Left OVER 10 YEARS AGO BREAST CYST EXCISION Right OVER 10 YEARS AGO CARDIAC CATHETERIZATION CARDIAC SURGERY CAROTID STENT x3 CHOLECYSTECTOMY COLON SURGERY COLONOSCOPY N/A 12/24/2018 Performed by Kalen Osborne MD at [facility] GASTRECTOMY 2019 HYSTERECTOMY 2003 COMPLETE LUMPECTOMY BREAST WITH NEEDLE LOCALIZATION FS Left 08/15/2017 Performed by Margarito Pgae DO at [facility] OOPHORECTOMY Bilateral 2002 OTHER SURGICAL HISTORY 1984 spleen repair SMALL INTESTINE SURGERY TUBAL LIGATION VENTRICULOPERITONEAL SHUNT 6 Clicks: Basic Mobility Turning from your back to your side while in a flat bed without using bed rails?: None Moving from lying on your back to sitting on side of flat bed without using bed rails?: None Moving to and from bed to a chair (including w/c)?: A little Standing up from a chair using your arms (e.g. w/c or bedside chair)?: None To walk in hospital room?: A little Climbing 3-5 steps with a railing?: Total Scoring 6 Clicks: Basic Mobility Raw Score: 19 CMS G Code Modifier: CJ Therapy Plan Need for skilled Physical Therapy to address deficits in functional mobility due to a status decline resulting from COVID-19. PT Treatment/Interventions: Functional transfer training, LE strengthening/ROM, Endurance training, Balance, Stair training, Bed mobility, Gait training, Functional activities, Neuromuscular reeducation PT Frequency: 2-3days/week PT Duration: 10 days Patient Response to Treatment: Tolerated evaluation without adverse reaction Assessment Patient Assessment Therapy Problem List: Abnormal posture, Decreased balance, Decreased endurance, Decreased mobility, Decreased cognition, Decreased LE ROM, Decreased LE strength Patient Response to Treatment: Tolerated evaluation without adverse reaction Mood/Affect: Appropriate for circumstances Rehab Prognosis: Good, With continued PT status post acute discharge Visit RN Communication: Yes Medical Record Reviewed: Yes PT Type of Visit: Evaluation Precautions Activity: Early mobility ok pass, Ok to evaluate per Eileen FERNANDEZ Equipment: rolling walker, nonskid socks, IV Telemetry/Digital Media Manager: Yes Oxygen Used: room air Other: fall risk, respiratory precautions Pain Assessment Pain Assessment: 0-10 Pain Score: 8 Pain Type: Acute pain Pain Location: Back, Rib cage, Chest Home Living Type of Home: House Home Layout: One level Stairs to Enter: 1+1 Hand Rails: None Bathroom Shower/Tub: Tub/shower unit Bathroom Toilet: Raised Bathroom Equipment: Grab bars in shower, Grab bars around toilet, Shower chair, Hand-held shower, Commode Bathroom Accessibility: Accessible via walker Home Equipment: Rolling walker, 4 Wheeled walker, Cane, Wheelchair-manual Prior Function Lives With: Spouse Receives Help From: Family Level of Mobility: Independent with ADLs and functional transfers or gait (ambulated with walker) Homemaking Assistance: Needs assistance Other: Daughter states she can stay with patient 08/05 and assist with care. At end of session she states she feels safe with patient going home with [facility]. Hearing / Speech / Vision Hearing: Within Functional Limits Speech: Within Functional Limits Current Vision: Wears contacts Cognition Orientation Level: Disoriented to place, Oriented to situation, Oriented to person, Oriented to month, Oriented to age Bed Mobility Sit to Supine: Stand by assist Transfers Sit to Stand: Contact guard assist Stand to Sit: Contact guard assist Gait Base of Support: Narrow Pattern: Decreased kaylan, Antalgic gait, R Decreased foot clearance, L Decreased foot clearance, Forward trunk Gait Assistance: Contact guard assist, Verbal cues Assistive Device: Rolling walker Gait Distance: 20ft Limiting Factors to Gait: Weakness 2 Turns: Yes Other: increased time to perform. Initially attempted ambulation with standard walker and patient struggles to lift walker to move it. obtained rolling walker with improved ease for patient. Patient becomes confused and slightly agitated at end of walk so returned to bed with assistance of daughters due to patient wanting to leave to smoke. Balance Sitting Balance: Static: Good Sitting Balance: Dynamic: Good Standing Balance: Static: Fair Standing Balance: Dynamic: Fair Other: Patient sitting independently on edge of bed upon entering the room. RLE Assessment: (4-/5) LLE Assessment: (4-/5) Activity Tolerance Endurance: Tolerates 30 minutes activity with rest breaks Other: SpO2 not reading during activity, patient denies being short of breath Plan Physical Therapy Care Plan Physical Therapy Care Plan (Active) Template: PT - Physical Therapy Problem: Gait Dates: Start: 10/20/23 Disciplines: PT Goal: Patient will perform gait with Stand By Assist Dates: Start: 10/20/23 Expected End: 10/29/23 Description: Pt to be able to ambulate 100ft with walker to be able to safely manage household distances at discharge. Disciplines: PT Problem: Stairs/Curb Dates: Start: 10/20/23 Disciplines: PT Goal: Patient will perform stairs/curb with Minimum Assist Dates: Start: 10/20/23 Expected End: 10/29/23 Description: Pt to ascend and descend 2 stairs with no handrails to be able to safely enter house at discharge. Disciplines: PT Problem: Standing Balance Dates: Start: 10/20/23 Disciplines: PT Goal: Improve balance to good Dates: Start: 10/20/23 Expected End: 10/29/23 Description: Static Dynamic Pt to have balance of good in order to decrease risk of falls at discharge. Disciplines: PT Problem: Strength Dates: Start: 10/20/23 Disciplines: PT Goal: Improve strength Dates: Start: 10/20/23 Expected End: 10/29/23 Description: Of extremity/ location: bilateral LE's to at least 4+/5 To facilitate: improved transfers Disciplines: PT Problem: Transfers Dates: Start: 10/20/23 Disciplines: PT Goal: Patient will perform transfers with Stand By Assist Dates: Start: 10/20/23 Expected End: 10/29/23 Description: Goal Description: Pt to be able to safely transfer with least amount of assistance to demonstrate decreased need for caregiver assistance and ease with home transfers. Disciplines: PT Physical Therapy Care Plan (Resolved) There are no resolved problems. Principal Problem: COVID-19 Active Problems: Diabetes mellitus type 2, controlled ([facility]) Anxiety disorder, unspecified Dyslipidemia Essential hypertension Hypokalemia Generalized weakness Severe malnutrition ([facility]) Occupational Therapy Evaluation (ginathers present, appear supprtive, provide subjective info) Discharge Recommendations OT Recommendations : [facility] Facility (vs home dependent on clinical course and pain management) Home Recommendations: 24 hour caregiver support for: (ADls, IADls, mobility, safety due to cognition , transortation) SNF/ECF Comments: patient would benefit from continued OT servcies in order to increase independence in ADls, IADls, and functional mobility tasks in order to promote return to prior level of function and maximum level of function 6 Clicks: Daily Activity Putting on and taking off regular lower body clothing?: Total Bathing (including washing, rinsing, drying)?: Total Toileting, which includes using toilet, bedpan or urinal?: Total Putting on and taking off regular upper body clothing?: Total Taking care of personal grooming such as brushing teeth?: A lot Eating meals?: A lot Scoring Daily Activity Raw Score: 8 CMS G Code Modifier: CM Therapy Plan/HPI/occupational profile throughout eval Need for skilled Occupational Therapy to address deficits in ADL independence and functional mobility due to a status decline resulting from COVID-19, recent fall, rib fractures. A moderate complex eval was completed. Past Surgical History: Procedure Laterality Date APPENDECTOMY ARM SURGERY BREAST BIOPSY Left 07/2017 STEREOTACTIC BREAST BIOPSY, DR. PAGE, atypical ductal hyperplasia BREAST CYST EXCISION Left OVER 10 YEARS AGO BREAST CYST EXCISION Right OVER 10 YEARS AGO CARDIAC CATHETERIZATION CARDIAC SURGERY CAROTID STENT x3 CHOLECYSTECTOMY COLON SURGERY COLONOSCOPY N/A 12/24/2018 Performed by Kalen Osborne MD at [facility] GASTRECTOMY 2020 HYSTERECTOMY 2003 COMPLETE LUMPECTOMY BREAST WITH NEEDLE LOCALIZATION FS Left 08/15/2017 Performed by Margarito Page DO at [facility] OOPHORECTOMY Bilateral 2002 OTHER SURGICAL HISTORY 1983 spleen repair SMALL INTESTINE SURGERY TUBAL LIGATION VENTRICULOPERITONEAL SHUNT Past Medical History: Diagnosis Date Anxiety and depression 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 Breast lesion 2017 ATYPICAL HYPERPLASIA LEFT BREAST CAD (coronary artery disease) S/P [place] WITH STENTS 03/2018 & 04/2018 Cancer ([facility]) CHF (congestive heart failure) ([facility]) Clotting disorder ([facility]) Diabetes mellitus ([facility]) DX 05/2017 Diabetes mellitus type 2, controlled ([facility]) Essential hypertension 08/28/2020 History of spleen injury spleen repair 1983 Insomnia Myocardial infarction ([facility]) 03/30/2018 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 Neuropathy Peptic ulceration Peripheral neuropathy Recurrent UTI Visual impairment contacts, glasses OT Treatment/Interventions: ADL retraining, Functional transfer training, UE strengthening/ROM, Endurance training, Cognitive reorientation, Patient/family training, Equipment eval/education, Balance, Home management, Compensatory technique education, Functional activities OT Frequency: 4-5days/week OT Duration: 10 days Assessment Patient Assessment Therapy Problem List: Decreased ADL status, Decreased balance, Decreased cognition, Decreased endurance, Decreased high-level ADLs, Decreased mobility, Decreased safe judgement during ADL, Decreased self-care trans, Decreased UE strength, Decreased UE ROM Patient Response to Treatment: Tolerated evaluation without adverse reaction Mood/Affect: Tearful Rehab Prognosis: Fair, Guarded, With continued OT status post acute discharge Visit RN Communication: Yes Medical Record Reviewed: Yes OT Type of Visit: Evaluation (daugthers present, appear supprtive, provide subjective info) Precautions Activity: OK to eval per Eileen FERNANDEZ Equipment: O2, non skid socks Telemetry/Digital Media Manager: Yes Oxygen Used: 2 L via nasal cannula Other: fall risk, rib fractures, respiratory precautions Pain Assessment Pain Assessment: 0-10 Pain Score: 10 Pain Type: Acute pain Pain Location: Back, Rib cage Pain Orientation: Left Pain Radiating Towards: left upper and mid sections Pain Intervention(s): Emotional support, Repositioned, Back rub (RN made aware of pain, and pt asking for pain medication) Home Living Type of Home: House Home Layout: One level Stairs to Enter: 1 Bathroom Shower/Tub: Tub only (also has walk in shower. pt takes a bath and sits down in the tub, has grab bars that she uses to assist with getting in and out tub) Home Equipment: Rolling walker Other : patient and daugther providing different home setup info throughout. Prior Function Lives With: Spouse Receives Help From: Family Level of Mobility: Needs assistance with ADLs or functional transfers or gait (per daugther ambulates with walker at times other times ambulated without device. patient requires assist for upper body dressing due to bad shoulders ) Homemaking Assistance: Needs assistance (order groceries and are delivered. daugther reports that pt and spouse are indpendent with home tasks/ shares IADls, daugthers will assist as needed) ADL / IADL Eating Assistance: Min assist Grooming Assistance: Max assist (total assist to brush hair and dauther's put in a braid, min assist to wash face while seated on edge of bed. refuses oral care) Bathing/Showering Assistance: Max assist Toilet/Commode Assistance: Total assist UE Dressing Assistance: Total assist LE Dressing Assistance: Total assist Footwear Assistance: Total assist Other: patient and daugthers ed on role and goals of OT. pt is agreeable to wash face while seated on edge of bed, declines further ADls at this time. therefore ADL assessment is based on clinical judgement and observation of pt's ability to complete ROM, strength, endurance, sit and stand balance, functional mobility status and safety awareness. pt becomes agitated and tearful during session, daugther provide emotional support and assistance throughout. Home Management - IADL Other: patient and daugthers ed on role and goals of OT. pt is agreeable to wash face while seated on edge of bed, declines further ADls at this time. therefore ADL assessment is based on clinical judgement and observation of pt's ability to complete ROM, strength, endurance, sit and stand balance, functional mobility status and safety awareness. pt becomes agitated and tearful during session, daugther provide emotional support and assistance throughout. Hearing / Speech / Vision Hearing: Within Functional Limits Speech: Within Functional Limits Current Vision: Wears contacts Cognition Overall Cognitive Status: Exceptions to Within Functional Limits Memory: Decreased recall of precautions Orientation Level: Oriented to place, Oriented to person, Oriented to situation, Oriented to month, Disoriented to time Other: daugthers report intermittent confusion has been happening since prior to admit. Sensation Overall Sensation Status: (denies numbness and tingling) Bed Mobility Supine to Sit: Max assist (head of bed elevated. daugthers assist plus commercial underwriter, ed to not pull on pt's UE's, increased time needed for completion, increased pain with movement.) Sit to Supine: Max assist (+ commercial underwriter and daugthers) Other: patient upon sitting edge of bed completes of pain, daugther provides support behind pt, pt tolerates sitting on edge of bed for approximately 25 minutes with support from daugthers during ADL tasks Transfers Sit to Stand: Unable to assess (due to pain, tearful, and agitated) Balance Sitting Balance: Static: Fair Sitting Balance: Dynamic: Poor RUE Assessment: (shoulder flexino limite to 30 degrees, distal strength 3+/5) LUE Assessment: (shoulder flexino limite to 30 degrees, distal strength 3+/5) Activity Tolerance Endurance: Tolerates 30 minutes activity with rest breaks Other: SpO2 in the 80's- 90's with HR rate elvated throughuot edwinal, however poor wave form. Plan Occupational Therapy Care Plan Occupational Therapy Care Plan (Active) Template: OT - Occupational Therapy Problem: Activity Tolerance Dates: Start: 10/20/23 Disciplines: OT Goal: Tolerate > 30 minutes of activity WITH rest breaks Dates: Start: 10/20/23 Expected End: 10/29/23 Description: Goal Description:patient to engage in activities of choice with out changes in vitals in order to promote return to prior level of function Disciplines: OT Problem: Functional Mobility Dates: Start: 10/20/23 Disciplines: OT Goal: Patient will perform functional mobility with Supervision Dates: Start: 10/20/23 Expected End: 10/29/23 Description: Goal Description:during ADL tasks Disciplines: OT Problem: Other (Customize) Dates: Start: 10/20/23 Disciplines: OT Goal: Improve Dates: Start: 10/20/23 Expected End: 10/29/23 Description: Goal Description:Patient to increase IND in ADls to min assist in order to promote return to prior level of function Disciplines: OT Problem: Standing Balance Dates: Start: 10/20/23 Disciplines: OT Goal: Other sitting and standing balance goal (customize) Dates: Start: 10/20/23 Expected End: 10/29/23 Description: Goal Description:Patient to increase standing balance to good in order to increase IND in ADLS and lower body dressing tasks Disciplines: OT Problem: Toilet Transfers Dates: Start: 10/20/23 Disciplines: OT Goal: Patient will perform toilet transfers with Supervision Dates: Start: 10/20/23 Expected End: 10/29/23 Description: Goal Description:with good safety awareness Disciplines: OT Problem: Toileting Dates: Start: 10/20/23 Disciplines: OT Goal: Patient will perform toileting with Supervision Dates: Start: 10/20/23 Expected End: 10/29/23 Description: Goal Description:with good safety awareness Disciplines: OT Occupational Therapy Care Plan (Resolved) There are no resolved problems. Principal Problem: COVID-19 Active Problems: Diabetes mellitus type 2, controlled ([facility]) Anxiety disorder, unspecified Dyslipidemia Essential hypertension Hypokalemia Generalized weakness Severe malnutrition ([facility]) DISCHARGE PLANNING NOTE Spoke with patient on telephone. Confirmed name and . Patient requested commercial underwriter speak with her daughter Dulce who is present at bedside. Patient lives home alone with her Sanjiv. Patient's and daughter are considered her support system. Pt provides own transportation. Pt said she is typically independent in/out of the home, performs own household tasks, meal preparation & has groceries delivered to her home. Her Sanjiv assists with household duties as well. Pt does not endorse food insecurity or financial stressors. Pt is able to afford home medications. Pt has functioning water, heat, cooling & electric in the home. Denies having any DME at home at present. Confirmed PCP is Dr. Corina Cook. Confirmed pharmacy is [facility] in [place]. Denies utilizing any community resources and denies need for information on any community resources at this time. Opportunity provided to ask questions, Corina does not endorse any at this time. Plan to prevent readmission is for pt to follow up with PCP, pt prefers to make own appointment, follow DC instructions including medication compliance and to reach out to health care team as needed. Care Navigation following for safe care transition. Problem: Pain Goal: Patient goal is pain score less than 4, able to rest, and participant in treatment plan as appropriate Description: INTERVENTIONS: 1. Encourage patient or legal community health program representative to report early pain and ask for pain medicine when needed 2. Assess pain using appropriate pain scale and include the scale used when documenting 3. Administer analgesics based on type and severity of pain and evaluate response within appropriate time frame 4. Implement non-pharmacological measures as appropriate and evaluate response 5. Consider cultural and social influences on pain and pain management 6. Notify LIP if interventions ineffective or patient reports new pain 7. Monitor vital signs including pulse ox, end-tidal CO2 based on pain intervention 8. Reassess pain per policy 9. Teach patient or legal community health program representative interventions for comforting Outcome: Progressing Note: Evaluation of progress towards goal:Pain assessed and treated accordingly. Problem: Safety Goal: Patient will be injury free during hospitalization Description: INTERVENTIONS: 1. Assess patient's risk for falls and implement fall prevention plan of care per policy 2. Provide and maintain a safe environment 3. Proper use of double Identifiers 4. Medication administration using the 5 rights 5. Hand hygiene 6. Specimens are labeled at the bedside 7. Instruct patient/ patient community health program representative about use of safety devices 8. Include patient/ patient community health program representative in decisions related to safety Outcome: Progressing Note: Evaluation of progress towards goal: PT is free of falls, hourly rounding is completed, area is kept clear. Problem: Infection Goal: Absence of infection during hospitalization Description: Interventions: 1. Assess and monitor for signs and symptoms of infection 2. Monitor lab/diagnostic results 3. Monitor all insertion sites i.e., indwelling lines, tubes and drains 4. Monitor endotracheal (as able) and nasal secretions for changes in amount and color 5. Administer medications as ordered 6. Instruct and encourage patient and family to use good hand hygiene technique 7. Identify and instruct patient/patient community health program representative in use of appropriate isolation precautions for identified infection/symptoms 8. Provide and discuss with patient/patient community health program representative on educational MDRO sheet 9. Encourage and monitor nutritional status daily and consult automobile salesman if indicated 10. Implement neutropenic guidelines as needed 11. Review exposure to history of communicable disease and recent travel history on admission 12. Encourage annual influenza vaccine 13. Encourage pneumonia vaccine Outcome: Progressing Note: Evaluation of progress towards goal: Pt assessed and monitored for signs and symptoms of infection, lab and diagnostic results monitored as needed, administer medications as needed. Problem: Knowledge Deficit Goal: Patient/patient community health program representative demonstrates understanding of disease process, treatment plan, medications, and discharge instructions Description: INTERVENTIONS 1. Complete learning assessment and assess knowledge base 2. Provide teaching at level of understanding 3. Provide teaching via preferred learning method(s) Outcome: Progressing Note: Evaluation of progress towards goal: Learning assessment and knowledge base assessed, teaching provided at an understandable level as needed. Problem: Discharge Planning Goal: Discharge to post-acute care, other facility, or home with appropriate resources Description: Patient's goal is: INTERVENTIONS 1. Conduct assessment to determine patient/family and health care team treatment goals, and need for post-acute services based on payer coverage, community resources, and patient preferences, and barriers to discharge 2. Coordinate with Social work, Care Navigation, and Utilization Review to arrange appropriate level of services according to patient's needs based on patient preference and payer coverage in collaboration with the physician and health care team 3. Address psychosocial, clinical, and financial barriers to discharge as identified in assessment in conjunction with the patient/family and health care team 4. Consult appropriate ancillary services (i.e.. PT/OT/ST, etc) as needed 5. Communicate with and update the patient/family, physician, and health care team regarding progress on the discharge plan 6. Identify discharge learning needs (meds, wound care, etc). 7. Arrange for needed discharge transportation as appropriate Outcome: Progressing Note: Evaluation of progress towards goal: Pt discharge initiated with attending provider, Pt/Family communicated with and updated regarding process on discharge as needed. Problem: Pain Goal: Patient goal is pain score less than 4, able to rest, and participant in treatment plan as appropriate Description: INTERVENTIONS: 1. Encourage patient or legal community health program representative to report early pain and ask for pain medicine when needed 2. Assess pain using appropriate pain scale and include the scale used when documenting 3. Administer analgesics based on type and severity of pain and evaluate response within appropriate time frame 4. Implement non-pharmacological measures as appropriate and evaluate response 5. Consider cultural and social influences on pain and pain management 6. Notify LIP if interventions ineffective or patient reports new pain 7. Monitor vital signs including pulse ox, end-tidal CO2 based on pain intervention 8. Reassess pain per policy 9. Teach patient or legal community health program representative interventions for comforting Outcome: Progressing Note: Evaluation of progress towards goal: Pt able to report pain according to 0/10 pain scale. Medicating patient for pain per orders. Problem: Safety Goal: Patient will be injury free during hospitalization Description: INTERVENTIONS: 1. Assess patient's risk for falls and implement fall prevention plan of care per policy 2. Provide and maintain a safe environment 3. Proper use of double Identifiers 4. Medication administration using the 5 rights 5. Hand hygiene 6. Specimens are labeled at the bedside 7. Instruct patient/ patient community health program representative about use of safety devices 8. Include patient/ patient community health program representative in decisions related to safety Outcome: Progressing Note: Evaluation of progress towards goal: Pt remains free from falls or accidental injury during stay. Fall prevention measures in place. Hourly rounding per RN and NA maintained. Problem: Knowledge Deficit Goal: Patient/patient community health program representative demonstrates understanding of disease process, treatment plan, medications, and discharge instructions Description: INTERVENTIONS 1. Complete learning assessment and assess knowledge base 2. Provide teaching at level of understanding 3. Provide teaching via preferred learning method(s) Outcome: Progressing Note: Evaluation of progress towards goal: POC discussed with patient. Questions answered PRN. documented in this encounter [facility] 10-21-2023 Hospital course Narrative DISCHARGE NOTE Demographics: Patient Name: Honey Montes : 1960 DATE OF ADMISSION: 10/19/2023 DATE OF DISCHARGE: 10/21/2023 DISCHARGE DIAGNOSES: Principal Problem: COVID-19 Active Problems: Diabetes mellitus type 2, controlled ([facility]) Anxiety disorder, unspecified Chronic diastolic (congestive) heart failure ([facility]) Dyslipidemia Essential hypertension Hypokalemia Generalized weakness Severe malnutrition ([facility]) Smoker CONSULTANTS: Consulting Providers Not on file PCP: Patient Care Team: Corina Cook MD as PCP - General (Family Medicine) Hosea Morelos MD as Consulting Physician (Oncology) PROCEDURES PERFORMED: none HOSPITAL COURSE SUMMARY: Per HPI: 63-year-old female presents with generalized weakness. Patient was diagnosed with COVID. She initially required 2 L oxygen via nasal cannula for which he was started on intravenous dexamethasone as well as remdesivir. Patient's symptoms improved and she was able to be weaned off the oxygen. Walking oximetry also was performed and she did not require any home oxygen. Patient had a potassium of 3.4 that was replaced and corrected. The patient is otherwise stable for discharge home and will finish the course of oral dexamethasone at home. Exam: BP 112/58 Pulse 54 Temp 36.8 C (98.2 F) (Oral) Resp 16 Ht 162.6 cm (5' 4.02 ) Wt 57.8 kg (127 lb 6.8 oz) SpO2 94% BMI 21.86 kg/m Intake/Output Summary (Last 24 hours) at 10/21/2023 1212 Last data filed at 10/20/2023 1835 Gross per 24 hour Intake 589.69 ml Output 2250 ml Net -1660.31 ml General appearance: alert, appears stated age and cooperative Lungs: clear to auscultation bilaterally Heart: regular rate and rhythm, S1, S2 normal, no murmur, click, rub or gallop and no JVD. Abdomen: soft, non-tender; bowel sounds normal; no masses, no organomegaly Extremities: extremities normal, atraumatic, no cyanosis or edema Pulses: 2+ and symmetric Skin: Skin color, texture, turgor normal. No rashes or lesions Neurologic: Grossly normal Labs: Recent Results (from the past 48 hour(s)) CBC auto differential Collection Time: 10/19/23 6:02 PM Result Value Ref Range White Blood Cells 7.9 4.0 - 11.0 X10E9/L RBC count 4.37 3.80 - 5.20 X10E12/L Hemoglobin 12.5 11.7 - 15.5 g/dL Hematocrit 38.5 35 - 47 % MCV 88 80 - 100 fL MCH 28.6 27 - 34 pg MCHC 32.4 32 - 36 g/dL RDW 15.9 (H) 11.5 - 15.0 % Platelets 333 150 - 450 X10E9/L MPV 8.9 7 - 12 fL % neutrophils 60.7 % % lymphocytes 28.2 % % monocytes 8.7 % % eosinophils 1.8 % % Basophils 0.6 % Neutrophils Absolute (A) 4.8 1.5 - 6.6 X10E9/L Lymphocytes Absolute 2.2 1.0 - 3.5 X10E9/L Monocytes Absolute 0.7 0 - 0.9 X10E9/L Eosinophils Absolute 0.1 0.0 - 0.4 X10E9/L Basophils Absolute 0.0 0.0 - 0.2 X10E9/L Comprehensive metabolic panel Collection Time: 10/19/23 6:02 PM Result Value Ref Range Sodium 139 134 - 146 mmol/L Potassium, Bld 3.4 (L) 3.5 - 5.0 mmol/L Chloride 101 98 - 109 mmol/L CO2 27 22 - 32 mmol/L Anion gap 11 5 - 15 mmol/L BUN 16 5 - 27 mg/dL Creatinine 1.15 (H) 0.40 - 1.00 mg/dL Glucose 77 65 - 99 mg/dL Calcium 9.1 8.5 - 10.5 mg/dL Total Protein 7.9 6.0 - 8.0 g/dL Albumin 3.8 3.2 - 5.3 g/dL Alkaline Phosphatase 87 39 - 130 U/L AST 19 0 - 41 U/L ALT 29 0 - 31 U/L Total bilirubin 0.7 0.3 - 1.2 mg/dL eGFR (CKD-EPI)non-race dependent 54 (L) >59 ml/min/1.73sq.m Blood culture Collection Time: 10/19/23 6:02 PM Specimen: Blood LEFT~ANTECUBITAL Result Value Ref Range Culture NO GROWTH 1 DAY Troponin I Collection Time: 10/19/23 6:02 PM Result Value Ref Range Troponin I <0.01 0.00 - 0.04 ng/mL Magnesium Collection Time: 10/19/23 6:02 PM Result Value Ref Range Magnesium 2.0 1.8 - 2.6 mg/dL Ethanol Collection Time: 10/19/23 6:02 PM Result Value Ref Range Ethanol Lvl <0.01 0.00 - 0.08 g/dL Blood culture Collection Time: 10/19/23 6:18 PM Specimen: Blood RIGHT~ANTECUBITAL Result Value Ref Range Culture NO GROWTH 1 DAY Ammonia Collection Time: 10/19/23 6:18 PM Result Value Ref Range Ammonia 15 11 - 35 umol/L SARS/FLU A+B/RSV by NAAT/Molecular (M4RT Collection Tube) Collection Time: 10/19/23 6:30 PM Result Value Ref Range FLU A PCR Negative Negative^Negative FLU B PCR Negative Negative^Negative RSV by PCR Negative Negative^Negative SARS CoV 2 BY PCR Detected (A) Not Detected^Not Detected CBC auto differential Collection Time: 10/20/23 5:08 AM Result Value Ref Range White Blood Cells 9.2 4.0 - 11.0 X10E9/L RBC count 3.51 (L) 3.80 - 5.20 X10E12/L Hemoglobin 10.2 (L) 11.7 - 15.5 g/dL Hematocrit 31.3 (L) 35 - 47 % MCV 89 80 - 100 fL MCH 29.0 27 - 34 pg MCHC 32.5 32 - 36 g/dL RDW 16.3 (H) 11.5 - 15.0 % Platelets 306 150 - 450 X10E9/L MPV 8.8 7 - 12 fL % neutrophils 64.1 % % lymphocytes 24.0 % % monocytes 9.8 % % eosinophils 1.4 % % Basophils 0.7 % Neutrophils Absolute (A) 5.9 1.5 - 6.6 X10E9/L Lymphocytes Absolute 2.2 1.0 - 3.5 X10E9/L Monocytes Absolute 0.9 0 - 0.9 X10E9/L Eosinophils Absolute 0.1 0.0 - 0.4 X10E9/L Basophils Absolute 0.1 0.0 - 0.2 X10E9/L Procalcitonin Collection Time: 10/20/23 8:52 AM Result Value Ref Range Procalcitonin 0.07 (H) <0.05 ng/mL Drug Screen, Urine Collection Time: 10/20/23 2:30 PM Result Value Ref Range Amphetamine/methamphetamine Negative Negative^Negative Barbiturate Screen, Ur Negative Negative^Negative Benzodiazepine Screen, Urine Positive (A) Negative^Negative THC, urine Negative Negative^Negative Cocaine (metabolite) Negative Negative^Negative Opiate Quant, Ur Positive (A) Negative^Negative Phencyclidine Negative Negative^Negative Oxycodone Positive (A) Negative^Negative Methadone Negative Negative^Negative Ecstasy Negative Negative^Negative Urinalysis Collection Time: 10/20/23 2:30 PM Result Value Ref Range Color YELLOW YELLOW^YELLOW Turbidity CLEAR CLEAR^CLEAR Specific gravity 1.010 1.003 - 1.035 Nitrite Negative Negative^Negative Ph urine 6.0 5.0 - 8.5 Leukocyte esterase Negative Negative^Negative Protein Negative Negative^Negative mg/dL Glucose, Ur Negative Negative^Negative mg/dL Ketones urine Negative Negative^Negative mg/dL Urobilinogen 0.2 <1.1 eu/dL Bilirubin, urine Negative Negative^Negative Hemoglobin Negative Negative^Negative Basic Metabolic Panel Collection Time: 10/21/23 4:25 AM Result Value Ref Range Sodium 139 134 - 146 mmol/L Potassium, Bld 3.5 3.5 - 5.0 mmol/L Chloride 104 98 - 109 mmol/L CO2 26 22 - 32 mmol/L Anion gap 9 5 - 15 mmol/L BUN 13 5 - 27 mg/dL Creatinine 0.76 0.40 - 1.00 mg/dL Glucose 127 (H) 65 - 99 mg/dL Calcium 8.9 8.5 - 10.5 mg/dL eGFR (CKD-EPI)non-race dependent 89 >59 ml/min/1.73sq.m CBC auto differential Collection Time: 10/21/23 4:25 AM Result Value Ref Range White Blood Cells 11.3 (H) 4.0 - 11.0 X10E9/L RBC count 3.78 (L) 3.80 - 5.20 X10E12/L Hemoglobin 10.8 (L) 11.7 - 15.5 g/dL Hematocrit 33.1 (L) 35 - 47 % MCV 88 80 - 100 fL MCH 28.7 27 - 34 pg MCHC 32.7 32 - 36 g/dL RDW 16.3 (H) 11.5 - 15.0 % Platelets 342 150 - 450 X10E9/L MPV 9.1 7 - 12 fL % neutrophils 79.3 % % lymphocytes 12.1 % % monocytes 8.0 % % eosinophils 0.1 % % Basophils 0.5 % Neutrophils Absolute (A) 9.0 (H) 1.5 - 6.6 X10E9/L Lymphocytes Absolute 1.4 1.0 - 3.5 X10E9/L Monocytes Absolute 0.9 0 - 0.9 X10E9/L Eosinophils Absolute 0.0 0.0 - 0.4 X10E9/L Basophils Absolute 0.1 0.0 - 0.2 X10E9/L DISCHARGE INSTRUCTION: Disposition: Discharge to Home Condition:Stable. Activity:as tolerated Diet: Adult diet Regular Texture Follow up: Corina Cook MD [address] [place] [phone] For most accurate medication list, please review the discharge medication summary. 32 minutes were spent on discharging this patient. documented in this encounter [facility] 10-21-2023 Progress note Formatting of t his note is different from the original. Physical Therapy Treatment Discharge Recommendations PT Recommendations: Home Home Recommendations: Intermittent caregiver support for: (As needed for high level mobility and ADL's) Post Discharge Therapy Recommendations: Home Physical Therapy 6 Clicks: Basic Mobility Turning from your back to your side while in a flat bed without using bed rails?: None Moving from lying on your back to sitting on side of flat bed without using bed rails?: None Moving to and from bed to a chair (including w/c)?: None Standing up from a chair using your arms (e.g. w/c or bedside chair)?: None To walk in hospital room?: None Climbing 3-5 steps with a railing?: A little Scoring 6 Clicks: Basic Mobility Raw Score: 23 CMS G Code Modifier: CI PT Treatment/Interventions: Functional transfer training, LE strengthening/ROM, Endurance training, Balance, Stair training, Bed mobility, Gait training, Functional activities, Neuromuscular reeducation PT Frequency: 2-3days/week PT Duration: 10 days Patient Response to Treatment: Progressing toward goals Assessment Patient Assessment Therapy Problem List: Abnormal posture, Decreased balance, Decreased endurance, Decreased mobility, Decreased cognition, Decreased LE ROM, Decreased LE strength Patient Response to Treatment: Progressing toward goals Mood/Affect: Appropriate for circumstances Rehab Prognosis: Good, With continued PT status post acute discharge Visit RN Communication: Yes Medical Record Reviewed: Yes PT Type of Visit: Treatment Precautions Activity: (OK to see per RN, Cat) Equipment: rolling walker, nonskid socks Telemetry/Digital Media Manager: Yes Oxygen Used: Room Air Other: fall risk, respiratory precautions Pain Assessment Pain Assessment: 0-10 Pain Score: 8 Pain Type: Acute pain Pain Location: Rib cage Pain Orientation: Left Pain Descriptors: Aching Pain Frequency: Constant/continuous Cognition Memory: Decreased recall of recent events Orientation Level: Oriented X4 Bed Mobility Supine to Sit: Independent Other: Patient left up in chair at end of session. Transfers Sit to Stand: Independent Stand to Sit: Independent Gait Base of Support: Narrow Pattern: Decreased kaylan Gait Assistance: Independent Assistive Device: Rolling walker Gait Distance: (30ft) 2 Turns: Yes Balance Sitting Balance: Static: Good Sitting Balance: Dynamic: Good Standing Balance: Static: Good, Fair Standing Balance: Dynamic: Good, Fair Activity Tolerance Endurance: Tolerates <30 minutes activity WITHOUT vital sign changes Plan Physical Therapy Care Plan Physical Therapy Care Plan (Active) Template: PT - Physical Therapy Problem: Gait Dates: Start: 10/20/23 Disciplines: PT Goal: Patient will perform gait with Stand By Assist Dates: Start: 10/20/23 Expected End: 10/29/23 Description: Pt to be able to ambulate 100ft with walker to be able to safely manage household distances at discharge. Disciplines: PT Outcomes Date/Time User Outcome 10/21/23 0946 Sita Graham, HANNAH Progressing Goal Note filed on 10/21/23945 by Sita Graham PT Evaluation of progress towards goal: IND amb 30' with RW Problem: Stairs/Curb Dates: Start: 10/20/23 Disciplines: PT Goal: Patient will perform stairs/curb with Minimum Assist Dates: Start: 10/20/23 Expected End: 10/29/23 Description: Pt to ascend and descend 2 stairs with no handrails to be able to safely enter house at discharge. Disciplines: PT Problem: Standing Balance Dates: Start: 10/20/23 Disciplines: PT Goal: Improve balance to good Dates: Start: 10/20/23 Expected End: 10/29/23 Description: Static Dynamic Pt to have balance of good in order to decrease risk of falls at discharge. Disciplines: PT Goal Note filed on 10/21/2347 by Sita Graham PT Evaluation of progress towards goal: Fair +/Good- Standing balance Problem: Strength Dates: Start: 10/20/23 Disciplines: PT Goal: Improve strength Dates: Start: 10/20/23 Expected End: 10/29/23 Description: Of extremity/ location: bilateral LE's to at least 4+/5 To facilitate: improved transfers Disciplines: PT Outcomes Date/Time User Outcome 10/21/23945 Sita Garham PT Progressing Goal Note filed on 10/21/23945 by Sita Graham PT Evaluation of progress towards goal: Patient completed supine exercises to increase LE strength Problem: Transfers Dates: Start: 10/20/23 Disciplines: PT Goal: Patient will perform transfers with Stand By Assist Dates: Start: 10/20/23 Expected End: 10/29/23 Description: Goal Description: Pt to be able to safely transfer with least amount of assistance to demonstrate decreased need for caregiver assistance and ease with home transfers. Disciplines: PT Outcomes Date/Time User Outcome 10/21/23945 Sita Graham PT Progressing Goal Note filed on 10/21/23945 by Sita Graham PT Evaluation of progress towards goal: IND sit to stand and stand to sit today Physical Therapy Care Plan (Resolved) There are no resolved problems. Principal Problem: COVID-19 Active Problems: Diabetes mellitus type 2, controlled ([facility]) Anxiety disorder, unspecified Chronic diastolic (congestive) heart failure ([facility]) Dyslipidemia Essential hypertension Hypokalemia Generalized weakness Severe malnutrition ([facility]) Smoker [facility] 10-20-2023 Plan of care note Problem: Pain Goal: Patient goal is pain score less than 4, able to rest, and participant in treatment plan as appropriate Description: INTERVENTIONS: 1. Encourage patient or legal community health program representative to report early pain and ask for pain medicine when needed 2. Assess pain using appropriate pain scale and include the scale used when documenting 3. Administer analgesics based on type and severity of pain and evaluate response within appropriate time frame 4. Implement non-pharmacological measures as appropriate and evaluate response 5. Consider cultural and social influences on pain and pain management 6. Notify LIP if interventions ineffective or patient reports new pain 7. Monitor vital signs including pulse ox, end-tidal CO2 based on pain intervention 8. Reassess pain per policy 9. Teach patient or legal community health program representative interventions for comforting Outcome: Progressing Note: Evaluation of progress towards goal: Patient able to report pain on 0-10 scale. Pain medications provided as ordered. Problem: Safety Goal: Patient will be injury free during hospitalization Description: INTERVENTIONS: 1. Assess patient's risk for falls and implement fall prevention plan of care per policy 2. Provide and maintain a safe environment 3. Proper use of double Identifiers 4. Medication administration using the 5 rights 5. Hand hygiene 6. Specimens are labeled at the bedside 7. Instruct patient/ patient community health program representative about use of safety devices 8. Include patient/ patient community health program representative in decisions related to safety Outcome: Progressing Note: Evaluation of progress towards goal: Patient remains free from falls and injury. Call light in reach and personal items in reach on bedside table. Needs assessed hourly. [facility] 10-20-2023 Progress note Formatting of t his note is different from the original. 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 Breast lesion 2017 ATYPICAL HYPERPLASIA LEFT BREAST CAD (coronary artery disease) S/P [place] WITH STENTS 03/2018 & 04/2018 Cancer ([facility]) CHF (congestive heart failure) ([facility]) Clotting disorder ([facility]) Diabetes mellitus ([facility]) DX 05/2017 Diabetes mellitus type 2, controlled ([facility]) Essential hypertension 08/28/2020 History of spleen injury spleen repair 1984 Insomnia Myocardial infarction ([facility]) 03/30/2018 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 PAGE, atypical ductal hyperplasia BREAST CYST EXCISION Left OVER 10 YEARS AGO BREAST CYST EXCISION Right OVER 10 YEARS AGO CARDIAC CATHETERIZATION CARDIAC SURGERY CAROTID STENT x3 CHOLECYSTECTOMY COLON SURGERY COLONOSCOPY N/A 12/24/2018 Performed by Kalen Osborne MD at [facility] GASTRECTOMY 2020 HYSTERECTOMY 2003 COMPLETE LUMPECTOMY BREAST WITH NEEDLE LOCALIZATION FS Left 08/15/2017 Performed by Margarito Page DO at [facility] OOPHORECTOMY Bilateral 2002 OTHER SURGICAL HISTORY 1983 spleen repair SMALL INTESTINE SURGERY TUBAL LIGATION VENTRICULOPERITONEAL SHUNT 6 Clicks: Basic Mobility Turning from your back to your side while in a flat bed without using bed rails?: None Moving from lying on your back to sitting on side of flat bed without using bed rails?: None Moving to and from bed to a chair (including w/c)?: A little Standing up from a chair using your arms (e.g. w/c or bedside chair)?: None To walk in hospital room?: A little Climbing 3-5 steps with a railing?: Total Scoring 6 Clicks: Basic Mobility Raw Score: 19 CMS G Code Modifier: CJ Therapy Plan Need for skilled Physical Therapy to address deficits in functional mobility due to a status decline resulting from COVID-19. PT Treatment/Interventions: Functional transfer training, LE strengthening/ROM, Endurance training, Balance, Stair training, Bed mobility, Gait training, Functional activities, Neuromuscular reeducation PT Frequency: 2-3days/week PT Duration: 10 days Patient Response to Treatment: Tolerated evaluation without adverse reaction Assessment Patient Assessment Therapy Problem List: Abnormal posture, Decreased balance, Decreased endurance, Decreased mobility, Decreased cognition, Decreased LE ROM, Decreased LE strength Patient Response to Treatment: Tolerated evaluation without adverse reaction Mood/Affect: Appropriate for circumstances Rehab Prognosis: Good, With continued PT status post acute discharge Visit RN Communication: Yes Medical Record Reviewed: Yes PT Type of Visit: Evaluation Precautions Activity: Early mobility ok pass, Ok to evaluate per Eileen FERNANDEZ Equipment: rolling walker, nonskid socks, IV Telemetry/Digital Media Manager: Yes Oxygen Used: room air Other: fall risk, respiratory precautions Pain Assessment Pain Assessment: 0-10 Pain Score: 8 Pain Type: Acute pain Pain Location: Back, Rib cage, Chest Home Living Type of Home: House Home Layout: One level Stairs to Enter: 1+1 Hand Rails: None Bathroom Shower/Tub: Tub/shower unit Bathroom Toilet: Raised Bathroom Equipment: Grab bars in shower, Grab bars around toilet, Shower chair, Hand-held shower, Commode Bathroom Accessibility: Accessible via walker Home Equipment: Rolling walker, 4 Wheeled walker, Cane, Wheelchair-manual Prior Function Lives With: Spouse Receives Help From: Family Level of Mobility: Independent with ADLs and functional transfers or gait (ambulated with walker) Homemaking Assistance: Needs assistance Other: Daughter states she can stay with patient 08/05 and assist with care. At end of session she states she feels safe with patient going home with [facility]. Hearing / Speech / Vision Hearing: Within Functional Limits Speech: Within Functional Limits Current Vision: Wears contacts Cognition Orientation Level: Disoriented to place, Oriented to situation, Oriented to person, Oriented to month, Oriented to age Bed Mobility Sit to Supine: Stand by assist Transfers Sit to Stand: Contact guard assist Stand to Sit: Contact guard assist Gait Base of Support: Narrow Pattern: Decreased kaylan, Antalgic gait, R Decreased foot clearance, L Decreased foot clearance, Forward trunk Gait Assistance: Contact guard assist, Verbal cues Assistive Device: Rolling walker Gait Distance: 20ft Limiting Factors to Gait: Weakness 2 Turns: Yes Other: increased time to perform. Initially attempted ambulation with standard walker and patient struggles to lift walker to move it. obtained rolling walker with improved ease for patient. Patient becomes confused and slightly agitated at end of walk so returned to bed with assistance of daughters due to patient wanting to leave to smoke. Balance Sitting Balance: Static: Good Sitting Balance: Dynamic: Good Standing Balance: Static: Fair Standing Balance: Dynamic: Fair Other: Patient sitting independently on edge of bed upon entering the room. RLE Assessment: (4-/5) LLE Assessment: (4-/5) Activity Tolerance Endurance: Tolerates 30 minutes activity with rest breaks Other: SpO2 not reading during activity, patient denies being short of breath Plan Physical Therapy Care Plan Physical Therapy Care Plan (Active) Template: PT - Physical Therapy Problem: Gait Dates: Start: 10/20/23 Disciplines: PT Goal: Patient will perform gait with Stand By Assist Dates: Start: 10/20/23 Expected End: 10/29/23 Description: Pt to be able to ambulate 100ft with walker to be able to safely manage household distances at discharge. Disciplines: PT Problem: Stairs/Curb Dates: Start: 10/20/23 Disciplines: PT Goal: Patient will perform stairs/curb with Minimum Assist Dates: Start: 10/20/23 Expected End: 10/29/23 Description: Pt to ascend and descend 2 stairs with no handrails to be able to safely enter house at discharge. Disciplines: PT Problem: Standing Balance Dates: Start: 10/20/23 Disciplines: PT Goal: Improve balance to good Dates: Start: 10/20/23 Expected End: 10/29/23 Description: Static Dynamic Pt to have balance of good in order to decrease risk of falls at discharge. Disciplines: PT Problem: Strength Dates: Start: 10/20/23 Disciplines: PT Goal: Improve strength Dates: Start: 10/20/23 Expected End: 10/29/23 Description: Of extremity/ location: bilateral LE's to at least 4+/5 To facilitate: improved transfers Disciplines: PT Problem: Transfers Dates: Start: 10/20/23 Disciplines: PT Goal: Patient will perform transfers with Stand By Assist Dates: Start: 10/20/23 Expected End: 10/29/23 Description: Goal Description: Pt to be able to safely transfer with least amount of assistance to demonstrate decreased need for caregiver assistance and ease with home transfers. Disciplines: PT Physical Therapy Care Plan (Resolved) There are no resolved problems. Principal Problem: COVID-19 Active Problems: Diabetes mellitus type 2, controlled ([facility]) Anxiety disorder, unspecified Dyslipidemia Essential hypertension Hypokalemia Generalized weakness Severe malnutrition ([facility]) [facility] [place] [place] [employer] [facility] 10-20-2023 Progress note Formatting of t his note is different from the original. Occupational Therapy Evaluation (daugthers present, appear supprtive, provide subjective info) Discharge Recommendations OT Recommendations : [facility] Facility (vs home dependent on clinical course and pain management) Home Recommendations: 24 hour caregiver support for: (ADls, IADls, mobility, safety due to cognition , transortation) SNF/ECF Comments: patient would benefit from continued OT servcies in order to increase independence in ADls, IADls, and functional mobility tasks in order to promote return to prior level of function and maximum level of function 6 Clicks: Daily Activity Putting on and taking off regular lower body clothing?: Total Bathing (including washing, rinsing, drying)?: Total Toileting, which includes using toilet, bedpan or urinal?: Total Putting on and taking off regular upper body clothing?: Total Taking care of personal grooming such as brushing teeth?: A lot Eating meals?: A lot Scoring Daily Activity Raw Score: 8 CMS G Code Modifier: CM Therapy Plan/HPI/occupational profile throughout eval Need for skilled Occupational Therapy to address deficits in ADL independence and functional mobility due to a status decline resulting from COVID-19, recent fall, rib fractures. A moderate complex eval was completed. Past Surgical History: Procedure Laterality Date APPENDECTOMY ARM SURGERY BREAST BIOPSY Left 07/2017 STEREOTACTIC BREAST BIOPSY, DR. PAGE, atypical ductal hyperplasia BREAST CYST EXCISION Left OVER 10 YEARS AGO BREAST CYST EXCISION Right OVER 10 YEARS AGO CARDIAC CATHETERIZATION CARDIAC SURGERY CAROTID STENT x3 CHOLECYSTECTOMY COLON SURGERY COLONOSCOPY N/A 12/24/2018 Performed by Kalen Osborne MD at [facility] GASTRECTOMY 2019 HYSTERECTOMY 2003 COMPLETE LUMPECTOMY BREAST WITH NEEDLE LOCALIZATION FS Left 08/15/2017 Performed by Margarito Page DO at [facility] OOPHORECTOM[facility] Bilateral 2002 OTHER SURGICAL HISTORY 1983 spleen repair SMALL INTESTINE SURGERY TUBAL LIGATION VENTRICULOPERITONEAL SHUNT Past Medical History: Diagnosis Date Anxiety and depression 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 Breast lesion 2016 ATYPICAL HYPERPLASIA LEFT BREAST CAD (coronary artery disease) S/P [place] WITH STENTS 03/2018 & 04/2018 Cancer ([facility]) CHF (congestive heart failure) ([facility]) Clotting disorder ([facility]) Diabetes mellitus ([facility]) DX 05/2017 Diabetes mellitus type 2, controlled ([facility]) Essential hypertension 08/28/2020 History of spleen injury spleen repair 1984 Insomnia Myocardial infarction ([facility]) 03/30/2018 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 Neuropathy Peptic ulceration Peripheral neuropathy Recurrent UTI Visual impairment contacts, glasses OT Treatment/Interventions: ADL retraining, Functional transfer training, UE strengthening/ROM, Endurance training, Cognitive reorientation, Patient/family training, Equipment eval/education, Balance, Home management, Compensatory technique education, Functional activities OT Frequency: 4-5days/week OT Duration: 10 days Assessment Patient Assessment Therapy Problem List: Decreased ADL status, Decreased balance, Decreased cognition, Decreased endurance, Decreased high-level ADLs, Decreased mobility, Decreased safe judgement during ADL, Decreased self-care trans, Decreased UE strength, Decreased UE ROM Patient Response to Treatment: Tolerated evaluation without adverse reaction Mood/Affect: Tearful Rehab Prognosis: Fair, Guarded, With continued OT status post acute discharge Visit RN Communication: Yes Medical Record Reviewed: Yes OT Type of Visit: Evaluation (daugthers present, appear supprtive, provide subjective info) Precautions Activity: OK to eval per Eileen FERNANDEZ Equipment: O2, non skid socks Telemetry/Digital Media Manager: Yes Oxygen Used: 2 L via nasal cannula Other: fall risk, rib fractures, respiratory precautions Pain Assessment Pain Assessment: 0-10 Pain Score: 10 Pain Type: Acute pain Pain Location: Back, Rib cage Pain Orientation: Left Pain Radiating Towards: left upper and mid sections Pain Intervention(s): Emotional support, Repositioned, Back rub (RN made aware of pain, and pt asking for pain medication) Home Living Type of Home: House Home Layout: One level Stairs to Enter: 1 Bathroom Shower/Tub: Tub only (also has walk in shower. pt takes a bath and sits down in the tub, has grab bars that she uses to assist with getting in and out tub) Home Equipment: Rolling walker Other : patient and daugther providing different home setup info throughout. Prior Function Lives With: Spouse Receives Help From: Family Level of Mobility: Needs assistance with ADLs or functional transfers or gait (per daugther ambulates with walker at times other times ambulated without device. patient requires assist for upper body dressing due to bad shoulders ) Homemaking Assistance: Needs assistance (order groceries and are delivered. daugther reports that pt and spouse are indpendent with home tasks/ shares IADls, daugthers will assist as needed) ADL / IADL Eating Assistance: Min assist Grooming Assistance: Max assist (total assist to brush hair and dauther's put in a braid, min assist to wash face while seated on edge of bed. refuses oral care) Bathing/Showering Assistance: Max assist Toilet/Commode Assistance: Total assist UE Dressing Assistance: Total assist LE Dressing Assistance: Total assist Footwear Assistance: Total assist Other: patient and daugthers ed on role and goals of OT. pt is agreeable to wash face while seated on edge of bed, declines further ADls at this time. therefore ADL assessment is based on clinical judgement and observation of pt's ability to complete ROM, strength, endurance, sit and stand balance, functional mobility status and safety awareness. pt becomes agitated and tearful during session, daugther provide emotional support and assistance throughout. Home Management - IADL Other: patient and daugthers ed on role and goals of OT. pt is agreeable to wash face while seated on edge of bed, declines further ADls at this time. therefore ADL assessment is based on clinical judgement and observation of pt's ability to complete ROM, strength, endurance, sit and stand balance, functional mobility status and safety awareness. pt becomes agitated and tearful during session, daugther provide emotional support and assistance throughout. Hearing / Speech / Vision Hearing: Within Functional Limits Speech: Within Functional Limits Current Vision: Wears contacts Cognition Overall Cognitive Status: Exceptions to Within Functional Limits Memory: Decreased recall of precautions Orientation Level: Oriented to place, Oriented to person, Oriented to situation, Oriented to month, Disoriented to time Other: daugthers report intermittent confusion has been happening since prior to admit. Sensation Overall Sensation Status: (denies numbness and tingling) Bed Mobility Supine to Sit: Max assist (head of bed elevated. daugthers assist plus commercial underwriter, ed to not pull on pt's UE's, increased time needed for completion, increased pain with movement.) Sit to Supine: Max assist (+ commercial underwriter and daugthers) Other: patient upon sitting edge of bed completes of pain, daugther provides support behind pt, pt tolerates sitting on edge of bed for approximately 25 minutes with support from daugthers during ADL tasks Transfers Sit to Stand: Unable to assess (due to pain, tearful, and agitated) Balance Sitting Balance: Static: Fair Sitting Balance: Dynamic: Poor RUE Assessment: (shoulder flexino limite to 30 degrees, distal strength 3+/5) LUE Assessment: (shoulder flexino limite to 30 degrees, distal strength 3+/5) Activity Tolerance Endurance: Tolerates 30 minutes activity with rest breaks Other: SpO2 in the 80's- 90's with HR rate elvated throughuot eval, however poor wave form. Plan Occupational Therapy Care Plan Occupational Therapy Care Plan (Active) Template: OT - Occupational Therapy Problem: Activity Tolerance Dates: Start: 10/20/23 Disciplines: OT Goal: Tolerate > 30 minutes of activity WITH rest breaks Dates: Start: 10/20/23 Expected End: 10/29/23 Description: Goal Description:patient to engage in activities of choice with out changes in vitals in order to promote return to prior level of function Disciplines: OT Problem: Functional Mobility Dates: Start: 10/20/23 Disciplines: OT Goal: Patient will perform functional mobility with Supervision Dates: Start: 10/20/23 Expected End: 10/29/23 Description: Goal Description:during ADL tasks Disciplines: OT Problem: Other (Customize) Dates: Start: 10/20/23 Disciplines: OT Goal: Improve Dates: Start: 10/20/23 Expected End: 10/29/23 Description: Goal Description:Patient to increase IND in ADls to min assist in order to promote return to prior level of function Disciplines: OT Problem: Standing Balance Dates: Start: 10/20/23 Disciplines: OT Goal: Other sitting and standing balance goal (customize) Dates: Start: 10/20/23 Expected End: 10/29/23 Description: Goal Description:Patient to increase standing balance to good in order to increase IND in ADLS and lower body dressing tasks Disciplines: OT Problem: Toilet Transfers Dates: Start: 10/20/23 Disciplines: OT Goal: Patient will perform toilet transfers with Supervision Dates: Start: 10/20/23 Expected End: 10/29/23 Description: Goal Description:with good safety awareness Disciplines: OT Problem: Toileting Dates: Start: 10/20/23 Disciplines: OT Goal: Patient will perform toileting with Supervision Dates: Start: 10/20/23 Expected End: 10/29/23 Description: Goal Description:with good safety awareness Disciplines: OT Occupational Therapy Care Plan (Resolved) There are no resolved problems. Principal Problem: COVID-19 Active Problems: Diabetes mellitus type 2, controlled ([facility]) Anxiety disorder, unspecified Dyslipidemia Essential hypertension Hypokalemia Generalized weakness Severe malnutrition ([facility]) [facility] Work Phone: 10-20-2023 Progress note Formatting of t his note might be different from the original. DISCHARGE PLANNING NOTE Spoke with patient on telephone. Confirmed name and . Patient requested commercial underwriter speak with her daughter Dulce who is present at bedside. Patient lives home alone with her Sanjiv. Patient's and daughter are considered her support system. Pt provides own transportation. Pt said she is typically independent in/out of the home, performs own household tasks, meal preparation & has groceries delivered to her home. Her Sanjiv assists with household duties as well. Pt does not endorse food insecurity or financial stressors. Pt is able to afford home medications. Pt has functioning water, heat, cooling & electric in the home. Denies having any DME at home at present. Confirmed PCP is Dr. Corina Cook. Confirmed pharmacy is [facility] in [place]. Denies utilizing any community resources and denies need for information on any community resources at this time. Opportunity provided to ask questions, Corina does not endorse any at this time. Plan to prevent readmission is for pt to follow up with PCP, pt prefers to make own appointment, follow DC instructions including medication compliance and to reach out to health care team as needed. Care Navigation following for safe care transition. [facility] 10-20-2023 Plan of care note Problem: Pain Goal: Patient goal is pain score less than 4, able to rest, and participant in treatment plan as appropriate Description: INTERVENTIONS: 1. Encourage patient or legal community health program representative to report early pain and ask for pain medicine when needed 2. Assess pain using appropriate pain scale and include the scale used when documenting 3. Administer analgesics based on type and severity of pain and evaluate response within appropriate time frame 4. Implement non-pharmacological measures as appropriate and evaluate response 5. Consider cultural and social influences on pain and pain management 6. Notify LIP if interventions ineffective or patient reports new pain 7. Monitor vital signs including pulse ox, end-tidal CO2 based on pain intervention 8. Reassess pain per policy 9. Teach patient or legal community health program representative interventions for comforting Outcome: Progressing Note: Evaluation of progress towards goal:Pain assessed and treated accordingly. Problem: Safety Goal: Patient will be injury free during hospitalization Description: INTERVENTIONS: 1. Assess patient's risk for falls and implement fall prevention plan of care per policy 2. Provide and maintain a safe environment 3. Proper use of double Identifiers 4. Medication administration using the 5 rights 5. Hand hygiene 6. Specimens are labeled at the bedside 7. Instruct patient/ patient community health program representative about use of safety devices 8. Include patient/ patient community health program representative in decisions related to safety Outcome: Progressing Note: Evaluation of progress towards goal: PT is free of falls, hourly rounding is completed, area is kept clear. Problem: Infection Goal: Absence of infection during hospitalization Description: Interventions: 1. Assess and monitor for signs and symptoms of infection 2. Monitor lab/diagnostic results 3. Monitor all insertion sites i.e., indwelling lines, tubes and drains 4. Monitor endotracheal (as able) and nasal secretions for changes in amount and color 5. Administer medications as ordered 6. Instruct and encourage patient and family to use good hand hygiene technique 7. Identify and instruct patient/patient community health program representative in use of appropriate isolation precautions for identified infection/symptoms 8. Provide and discuss with patient/patient community health program representative on educational MDRO sheet 9. Encourage and monitor nutritional status daily and consult automobile salesman if indicated 10. Implement neutropenic guidelines as needed 11. Review exposure to history of communicable disease and recent travel history on admission 12. Encourage annual influenza vaccine 13. Encourage pneumonia vaccine Outcome: Progressing Note: Evaluation of progress towards goal: Pt assessed and monitored for signs and symptoms of infection, lab and diagnostic results monitored as needed, administer medications as needed. Problem: Knowledge Deficit Goal: Patient/patient community health program representative demonstrates understanding of disease process, treatment plan, medications, and discharge instructions Description: INTERVENTIONS 1. Complete learning assessment and assess knowledge base 2. Provide teaching at level of understanding 3. Provide teaching via preferred learning method(s) Outcome: Progressing Note: Evaluation of progress towards goal: Learning assessment and knowledge base assessed, teaching provided at an understandable level as needed. Problem: Discharge Planning Goal: Discharge to post-acute care, other facility, or home with appropriate resources Description: Patient's goal is: INTERVENTIONS 1. Conduct assessment to determine patient/family and health care team treatment goals, and need for post-acute services based on payer coverage, community resources, and patient preferences, and barriers to discharge 2. Coordinate with Social work, Care Navigation, and Utilization Review to arrange appropriate level of services according to patient's needs based on patient preference and payer coverage in collaboration with the physician and health care team 3. Address psychosocial, clinical, and financial barriers to discharge as identified in assessment in conjunction with the patient/family and health care team 4. Consult appropriate ancillary services (i.e.. PT/OT/ST, etc) as needed 5. Communicate with and update the patient/family, physician, and health care team regarding progress on the discharge plan 6. Identify discharge learning needs (meds, wound care, etc). 7. Arrange for needed discharge transportation as appropriate Outcome: Progressing Note: Evaluation of progress towards goal: Pt discharge initiated with attending provider, Pt/Family communicated with and updated regarding process on discharge as needed. [facility] 10-20-2023 History and physical note Images from the original note were not included. [facility] HOSPITALISTS Todd Jack, MD Aidan Diana, MD Duane Armando, MD Shantelle Govea, MD Ginette Vallejo, MD Shanell Kessler, MD Tyree Crook, MD Roxanna Armas, MD Griselda Bess, PRECISION AGRICULTURE TECHNICIAN Torrie Clark, PRECISION AGRICULTURE TECHNICIAN Rosalina Gilman, PRECISION AGRICULTURE TECHNICIAN Myra Parson, PRECISION AGRICULTURE TECHNICIAN Ashley Bucio, PRECISION AGRICULTURE TECHNICIAN Araceli Mott, PRECISION AGRICULTURE TECHNICIAN Celestina Swift, [facility] Angle García, [facility] James Wilson, [facility] Lelia Mcdonough, PRECISION AGRICULTURE TECHNICIAN Camilla Mcgee, [facility] Marta Reinoso, PRECISION AGRICULTURE TECHNICIAN Ricci Johnson, PRECISION AGRICULTURE TECHNICIAN Lauro Villar, [facility] Joann Etienne, PRECISION AGRICULTURE TECHNICIAN Camilla Wang, [facility] Crystal Candelaria, PRECISION AGRICULTURE TECHNICIAN Gaurav Mcconnell, [facility] Medicine History & Physical Patient: Honey Montes Date of : 1960 Room: PCP: Corina Cook MD Admission date: 10/19/2023 5:29 PM Encounter date: 10/20/23 SUBJECTIVE Honey Montes is a 63 y.o. female who presents with complaints of generalized weakness. She is being weak all over, unable to get out of bed. Patient was seen here yesterday following a fall in the bathroom where she struck the sink with her chest and sustained 2 rib fractures. She reports that her legs just give out from under heard any given time. She denies any fevers or chills. She is nauseous but not vomiting. She is complaining of pain at a rib fracture site but no shortness of breath. No hemoptysis. She is minor cough. No abdominal pain. She does relate that her and daughter at home are ill with cough and cold symptoms. ER Course: CBC is within acceptable limits. CMP shows minor hypokalemia with potassium of 3.4. Creatinine is slightly elevated at 1.15. Ethanol is negative. Troponin negative. Ammonia is normal. Viral panel shows positive Covid test. Chest x-ray shows no appreciable interval change. She has some haziness in the right base in the area of her rib fracture which likely represents atelectasis. She does not have any clinical features of pneumonia at this time. She is too weak to get herself out of bed. Caregivers are not comfortable with her going home. Will request observation admission Chief Complaint Patient presents with Medical Screening Allergies: Patient has no known allergies. Prior to Admission medications Medication Sig Start Date End Date Taking? Authorizing Provider ALPRAZolam (XANAX) 1 mg tablet Take 1 tablet (1 mg total) by mouth in the morning and 1 tablet (1 mg total) at noon and 1 tablet (1 mg total) in the evening. Yes Not In System Ref Prov aspirin 81 mg Take 1 tablet (81 mg total) by mouth in the morning. Yes Not In System Ref Prov atorvastatin (LIPITOR) 80 mg tablet Take 1 tablet (80 mg total) by mouth in the morning. Yes Not In System Ref Prov citalopram (CeleXA) 20 mg tablet Take 1 tablet (20 mg total) by mouth in the morning and 1 tablet (20 mg total) before bedtime. Yes Not In System Ref Prov clopidogreL (PLAVIX) 75 mg tablet Take 1 tablet (75 mg total) by mouth in the morning. Yes Not In System Ref Prov furosemide (LASIX) 20 mg tablet Take 1 tablet (20 mg total) by mouth daily. Yes Not In System Ref Prov gabapentin (NEURONTIN) 300 mg capsule Take 1 capsule (300 mg total) by mouth in the morning and 1 capsule (300 mg total) before bedtime. 02/21/18 Yes Not In System Ref Prov midodrine (PROAMATINE) 10 mg tablet Take 1 tablet (10 mg total) by mouth 2 (two) times a day. Yes Not In System Ref Prov morphine sulfate (MORPHINE ORAL) Take 10 mg by mouth in the morning and 10 mg before bedtime. Yes Not In System Ref Prov ONETOUCH DELICA LANCETS 33 gauge misc TEST FASTING QAM 08/08/17 Yes Not In System Ref Prov ONETOUCH ULTRA2 kit USE UTD 08/08/17 Yes Not In System Ref Prov oxyCODONE-acetaminophen (PERCOCET) 5-325 mg per tablet Take 1 tablet by mouth 3 (three) times a day as needed for pain for up to 3 days. Max Daily Amount: 3 tablets 10/18/23 10/21/23 Yes Raghavendra Negrete MD pantoprazole (PROTONIX) 40 mg EC tablet Take 1 tablet (40 mg total) by mouth in the morning. Yes Not In System Ref Prov potassium chloride (K-TAB,KLOR-CON) 10 MEQ CR tablet Take 1 tablet (10 mEq total) by mouth in the morning and 1 tablet (10 mEq total) before bedtime. Yes Not In System Ref Prov zolpidem (AMBIEN) 10 mg tablet Take 1 tablet (10 mg total) by mouth nightly as needed for sleep. Yes Not In System Ref Prov amiodarone (PACERONE) 200 mg tablet Take 1 tablet (200 mg total) by mouth in the morning. Not In System Ref Prov metoprolol succinate XL (TOPROL XL) 25 mg 24 hr tablet Take 1 tablet (25 mg total) by mouth in the morning. Not In System Ref Prov naloxegoL (MOVANTIK) 25 mg tablet tablet Take 1 tablet (25 mg total) by mouth in the morning. Not In System Ref Prov naloxone (NARCAN) 4 mg/actuation spray,non-aerosol nasal spray Administer 1 spray (4 mg total) into alternating nostrils as needed for opioid reversal. Patient not taking: Reported on 10/20/2023 10/18/23 Raghavendra Negrete MD nitroglycerin (NITROSTAT) 0.[address] 1 tablet (0.4 mg total) under the tongue as needed for chest pain. 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), Breast lesion (2016), CAD (coronary artery disease), Cancer ([facility]), CHF (congestive heart failure) ([facility]), Clotting disorder ([facility]), Diabetes mellitus ([facility]), Diabetes mellitus type 2, controlled ([facility]), Essential hypertension (08/28/2020), History of spleen injury, Insomnia, Myocardial infarction ([facility]) (03/30/2018), Neuroendocrine cancer ([facility]), Neuropathy, Peptic ulceration, Peripheral neuropathy, Recurrent UTI, and Visual impairment. Past Surgical History: Patient has a past surgical history that includes Breast cyst excision (Left, OVER 10 YEARS AGO); Breast cyst excision (Right, OVER 10 YEARS AGO); Appendectomy; Other surgical history (1983); Carotid stent; Oophorectomy (Bilateral, 2002); Hysterectomy (2002); Colonoscopy (N/A, 12/24/2018); Breast lumpectomy w/ needle localization (Left, 08/15/2017); Breast biopsy (Left, 07/2017); Colon surgery; Gastrectomy (2019); Cardiac catheterization; Cholecystectomy; Cardiac surgery; Small intestine surgery; Tubal ligation; Ventriculoperitoneal shunt; and Arm Surgery. Family History: Patient's family history includes COPD in her mother; Cancer in her father; Cervical cancer in her mother; Colon cancer in her maternal grandmother; Diabetes in her mother; Kidney disease in her father; Lung cancer in her maternal grandfather and mother; No Known Problems in her daughter, daughter, and son; Uterine cancer in her mother. Social History: Patient reports that she has been smoking cigarettes. She has a 30 pack-year smoking history. She has never used smokeless tobacco. She reports that she does not currently use alcohol. She reports that she does not use drugs. Review of Systems Review of Systems Constitutional: Negative for activity change, appetite change, chills, diaphoresis, fatigue and fever. HENT: Negative for tinnitus and trouble swallowing. Respiratory: Negative for cough, chest tightness, shortness of breath and wheezing. Cardiovascular: Negative for chest pain, palpitations and leg swelling. Gastrointestinal: Negative for abdominal pain, diarrhea, nausea and vomiting. Genitourinary: Negative for difficulty urinating. Musculoskeletal: Negative for gait problem. Skin: Negative for rash. Neurological: Negative for dizziness, syncope, speech difficulty, weakness, light-headedness, numbness and headaches. Psychiatric/Behavioral: Positive for agitation and dysphoric mood. Negative for sleep disturbance. The patient is nervous/anxious. OBJECTIVE BP 110/54 Pulse 65 Temp 36.8 C (98.2 F) (Oral) Resp 18 Ht 162.6 cm (5' 4.02 ) Wt 56.7 kg (124 lb 14.4 oz) SpO2 95% BMI 21.43 kg/m Intake/Output Summary (Last 24 hours) at 10/20/2023 1547 Last data filed at 10/20/2023 1445 Gross per 24 hour Intake 1377.58 ml Output 500 ml Net 877.58 ml Physical Exam Physical Exam Vitals and nursing note reviewed. Constitutional: General: She is not in acute distress. Appearance: She is ill-appearing. HENT: Head: Normocephalic and atraumatic. Right Ear: External ear normal. Left Ear: External ear normal. Nose: Nose normal. Mouth/Throat: Mouth: Mucous membranes are moist. Pharynx: Oropharynx is clear. Eyes: Extraocular Movements: Extraocular movements intact. Pupils: Pupils are equal, round, and reactive to light. Neck: Vascular: No carotid bruit or JVD. Cardiovascular: Rate and Rhythm: Normal rate and regular rhythm. Pulses: Normal pulses. Pulmonary: Effort: Pulmonary effort is normal. Breath sounds: Rales (Bibasilar rales) present. Abdominal: General: Bowel sounds are normal. Palpations: Abdomen is soft. Tenderness: There is no abdominal tenderness. There is no right CVA tenderness or left CVA tenderness. Musculoskeletal: Right lower leg: No edema. Left lower leg: No edema. Lymphadenopathy: Cervical: No cervical adenopathy. Skin: General: Skin is warm and dry. Capillary Refill: Capillary refill takes less than 2 seconds. Neurological: General: No focal deficit present. Mental Status: She is alert and oriented to person, place, and time. Motor: Weakness present. Psychiatric: Mood and Affect: Mood is anxious. Behavior: Behavior is agitated. Thought Content: Thought content normal. Judgment: Judgment is inappropriate. Comments: Inappropriate judgment related to health. Patient wanting to go home and smoke cigarettes even though she required oxygen on admission. Medications Scheduled: ALPRAZolam, 1 mg, oral, TID amiodarone, 200 mg, oral, Daily aspirin, 81 mg, oral, Daily atorvastatin, 80 mg, oral, Daily citalopram, 20 mg, oral, BID clopidogreL, 75 mg, oral, Daily dexAMETHasone, 6 mg, intravenous, Q24H MARCO enoxaparin (LOVENOX) injection, 40 mg, subcutaneous, Daily furosemide, 40 mg, intravenous, Once furosemide, 20 mg, oral, Daily gabapentin, 300 mg, oral, BID metoprolol succinate XL, 25 mg, oral, Daily midodrine, 10 mg, oral, BID morphine, 15 mg, oral, Q12H MARCO nicotine, 1 patch, transdermal, Daily pantoprazole, 40 mg, oral, Daily potassium chloride, 10 mEq, oral, BID [COMPLETED] remdesivir, 200 mg, intravenous, Once FOLLOWED BY [START ON 10/21/2023] remdesivir, 100 mg, intravenous, Q24H Infusions: dextrose 5 % in water, 100 mL/hr dextrose 5 % and sodium chloride 0.9 % with KCl 20 mEq/L, 125 mL/hr, Last Rate: 125 mL/hr (10/20/23 1253) sodium chloride 0.9 %, 20 mL/hr As Needed: acetaminophen alum-mag hydroxide-simeth dextrose dextrose 5 % in water dextrose 50 % in water (D50W) glucagon (human recombinant) ipratropium-albuteroL magnesium sulfate magnesium sulfate ondansetron oxyCODONE-acetaminophen potassium chloride OR potassium chloride sennosides-docusate sodium sodium chloride sodium chloride sodium chloride 0.9 % zolpidem Allergies: Patient has no known allergies. Labs Recent Results (from the past 24 hour(s)) CBC auto differential Collection Time: 10/19/23 6:02 PM Result Value Ref Range White Blood Cells 7.9 4.0 - 11.0 X10E9/L RBC count 4.37 3.80 - 5.20 X10E12/L Hemoglobin 12.5 11.7 - 15.5 g/dL Hematocrit 38.5 35 - 47 % MCV 88 80 - 100 fL MCH 28.6 27 - 34 pg MCHC 32.4 32 - 36 g/dL RDW 15.9 (H) 11.5 - 15.0 % Platelets 333 150 - 450 X10E9/L MPV 8.9 7 - 12 fL % neutrophils 60.7 % % lymphocytes 28.2 % % monocytes 8.7 % % eosinophils 1.8 % % Basophils 0.6 % Neutrophils Absolute (A) 4.8 1.5 - 6.6 X10E9/L Lymphocytes Absolute 2.2 1.0 - 3.5 X10E9/L Monocytes Absolute 0.7 0 - 0.9 X10E9/L Eosinophils Absolute 0.1 0.0 - 0.4 X10E9/L Basophils Absolute 0.0 0.0 - 0.2 X10E9/L Comprehensive metabolic panel Collection Time: 10/19/23 6:02 PM Result Value Ref Range Sodium 139 134 - 146 mmol/L Potassium, Bld 3.4 (L) 3.5 - 5.0 mmol/L Chloride 101 98 - 109 mmol/L CO2 27 22 - 32 mmol/L Anion gap 11 5 - 15 mmol/L BUN 16 5 - 27 mg/dL Creatinine 1.15 (H) 0.40 - 1.00 mg/dL Glucose 77 65 - 99 mg/dL Calcium 9.1 8.5 - 10.5 mg/dL Total Protein 7.9 6.0 - 8.0 g/dL Albumin 3.8 3.2 - 5.3 g/dL Alkaline Phosphatase 87 39 - 130 U/L AST 19 0 - 41 U/L ALT 29 0 - 31 U/L Total bilirubin 0.7 0.3 - 1.2 mg/dL eGFR (CKD-EPI)non-race dependent 54 (L) >59 ml/min/1.73sq.m Blood culture Collection Time: 10/19/23 6:02 PM Specimen: Blood LEFT~ANTECUBITAL Result Value Ref Range Culture NO GROWTH <24 HRS Troponin I Collection Time: 10/19/23 6:02 PM Result Value Ref Range Troponin I <0.01 0.00 - 0.04 ng/mL Magnesium Collection Time: 10/19/23 6:02 PM Result Value Ref Range Magnesium 2.0 1.8 - 2.6 mg/dL Ethanol Collection Time: 10/19/23 6:02 PM Result Value Ref Range Ethanol Lvl <0.01 0.00 - 0.08 g/dL Blood culture Collection Time: 10/19/23 6:18 PM Specimen: Blood RIGHT~ANTECUBITAL Result Value Ref Range Culture NO GROWTH <24 HRS Ammonia Collection Time: 10/19/23 6:18 PM Result Value Ref Range Ammonia 15 11 - 35 umol/L SARS/FLU A+B/RSV by NAAT/Molecular (M4RT Collection Tube) Collection Time: 10/19/23 6:30 PM Result Value Ref Range FLU A PCR Negative Negative^Negative FLU B PCR Negative Negative^Negative RSV by PCR Negative Negative^Negative SARS CoV 2 BY PCR Detected (A) Not Detected^Not Detected CBC auto differential Collection Time: 10/20/23 5:08 AM Result Value Ref Range White Blood Cells 9.2 4.0 - 11.0 X10E9/L RBC count 3.51 (L) 3.80 - 5.20 X10E12/L Hemoglobin 10.2 (L) 11.7 - 15.5 g/dL Hematocrit 31.3 (L) 35 - 47 % MCV 89 80 - 100 fL MCH 29.0 27 - 34 pg MCHC 32.5 32 - 36 g/dL RDW 16.3 (H) 11.5 - 15.0 % Platelets 306 150 - 450 X10E9/L MPV 8.8 7 - 12 fL % neutrophils 64.1 % % lymphocytes 24.0 % % monocytes 9.8 % % eosinophils 1.4 % % Basophils 0.7 % Neutrophils Absolute (A) 5.9 1.5 - 6.6 X10E9/L Lymphocytes Absolute 2.2 1.0 - 3.5 X10E9/L Monocytes Absolute 0.9 0 - 0.9 X10E9/L Eosinophils Absolute 0.1 0.0 - 0.4 X10E9/L Basophils Absolute 0.1 0.0 - 0.2 X10E9/L Procalcitonin Collection Time: 10/20/23 8:52 AM Result Value Ref Range Procalcitonin 0.07 (H) <0.05 ng/mL Drug Screen, Urine Collection Time: 10/20/23 2:30 PM Result Value Ref Range Amphetamine/methamphetamine Negative Negative^Negative Barbiturate Screen, Ur Negative Negative^Negative Benzodiazepine Screen, Urine Positive (A) Negative^Negative THC, urine Negative Negative^Negative Cocaine (metabolite) Negative Negative^Negative Opiate Quant, Ur Positive (A) Negative^Negative Phencyclidine Negative Negative^Negative Oxycodone Positive (A) Negative^Negative Methadone Negative Negative^Negative Ecstasy Negative Negative^Negative Urinalysis Collection Time: 10/20/23 2:30 PM Result Value Ref Range Color YELLOW YELLOW^YELLOW Turbidity CLEAR CLEAR^CLEAR Specific gravity 1.010 1.003 - 1.035 Nitrite Negative Negative^Negative Ph urine 6.0 5.0 - 8.5 Leukocyte esterase Negative Negative^Negative Protein Negative Negative^Negative mg/dL Glucose, Ur Negative Negative^Negative mg/dL Ketones urine Negative Negative^Negative mg/dL Urobilinogen 0.2 <1.1 eu/dL Bilirubin, urine Negative Negative^Negative Hemoglobin Negative Negative^Negative Radiology X-ray chest 1 view Result Date: 10/19/2023 Narrative: CLINICAL INFORMATION: Dyspnea, acute chest pain, left eighth and ninth rib fractures. TECHNIQUE: Chest, 1 view. COMPARISON: Chest radiograph 06/06/2023. Chest CT from yesterday. FINDINGS Cardiomediastinal silhouette does not appear significantly changed. Left lung base opacification. Displaced left eighth and ninth rib fractures. IMPRESSION: * No significant interval change since yesterday. Left lung base opacifications most likely represent scarring and atelectasis, though early pneumonia cannot be excluded in the appropriate clinical setting. Approved by Resident Kehinde Hensley MD on 10/19/2023 7:46 PM I, Shivam Hendrix MD have personally reviewed the image(s) and agree with and/or edited the report Finalized by Shivam Hendrix MD on 10/19/2023 7:[address] chest without contrast Result Date: 10/18/2023 Narrative: Indication: Chest trauma blunt. TECHNIQUE: Unenhanced CT of the chest is performed. Lack of IV contrast significantly compromises evaluation of vascular structures especially in the setting of trauma. No prior comparison. FINDINGS: Thyroid is not enlarged in its visualized portion. Thoracic aorta shows normal caliber. Pulmonary outflow tract is not significantly dilated. Extensive coronary artery calcification and or stents noted. No significant mediastinal or hilar lymphadenopathy appreciated. A pleural pericardial effusion is not seen. The heart appears mildly enlarged. Images through upper most abdomen show postsurgical changes about the stomach. There is mild bilateral adrenal hyperplasia which is unchanged. Lung windows show mosaic attenuation greatest within lung bases. There is a groundglass nodule of the left upper lobe measuring up to 11.5 mm with solid component measuring 4 mm. Bronchial wall thickening within lower lobe region noted. Additional left upper lobe nodule shows lobulated margin without calcification and measures 6 mm. Small nodule within lower lobe region would be difficult to exclude with airspace process present. Bone windows show fracture left posterior lateral eighth and ninth ribs with minimal displacement. No pneumothorax seen. Vertebral body heights and alignment are satisfactory. IMPRESSION: 1. Mildly displaced left posterior lateral eighth and ninth rib fractures. 2. Mosaic attenuation within lung bases with bronchial wall thickening typically small airway disease. Portion of the appearance could represent some pulmonary contusion. 3. Worrisome lesion left upper lobe which is predominantly groundglass with small solid components. Solid components measure only 4 mm. Additional solid lobulated nodule measures 6 mm. Follow-up exam in 6 months recommended. 4. Compromised evaluation performed without IV contrast. All CT scans at this facility use dose modulation, iterative reconstruction, and/or weight based dosing when appropriate to reduce radiation dose to as low as reasonably achievable. Finalized by Amina Ramírez MD on 10/18/2023 10:15 AM HOSPITAL PROBLEM LIST Principal Problem: COVID-19 Active Problems: Diabetes mellitus type 2, controlled ([facility]) Anxiety disorder, unspecified Chronic diastolic (congestive) heart failure ([facility]) Dyslipidemia Essential hypertension Hypokalemia Generalized weakness Severe malnutrition ([facility]) Smoker ASSESSMENT & PLAN COVID-19 infection: O2 as needed. Requiring 4 L per nasal cannula on admission. Remdesivir and Decadron 6 mg ordered. Diabetes type 2: Not on any medications at home. No significant hypo or hyperglycemia. Will continue to monitor blood glucose daily on met panel. Dyslipidemia: Continue home statin. Hypertension: Normotensive. Continue metoprolol. Hypokalemia: Supplement. Monitor electrolytes daily replace per protocol. Generalized weakness: PT OT to see. Severe malnutrition: Nutrition consult. Nutritional supplements. Chronic diastolic heart failure: Continue home Lasix. Rales noted bibasilar. One time dose IV Lasix 40 mg. Discontinue IV fluids. Monitor kidney function daily. Smoker: Education provided about smoking cessation. Nicoderm patch ordered. Patient adamant today that she is going to leave whether I discharge her not. She states she needs to go home and smoke a cigarette. I advised patient that I could not discharge her and that she would need to stay at least another day for her remdesivir and should actually stay for 2 more days to get the full 3 day course. Patient denies need for any further treatment. I again explained to patient that she required oxygen on admission and that she should not go home to smoke cigarettes. Patient states she will attempt the Nicoderm patch but if it does not work she is leaving against medical advice. I again explained benefit of staying versus risk of leaving. Admission orders placed and home medications reconciled. DVT prophylaxis: EPC's and Lovenox. GI prophylaxis. Protonix PT/OT to evaluate and treat. DC planning: Discharge home in 2 days after course of remdesivir. RITA Long, 10/20/2023 3:47 PM [facility] Hospitalists 7AM-7PM: Message rounding JASEN in [employer] or page through [employer]. 7PM-7AM: Page on-call JASEN through our answering service, . This note is dictated with the use of M*Modal. Please note that this dictation was completed with computer voice recognition software. Quite often unanticipated grammatical, syntax, homophones, and other interpretive errors are inadvertently transcribed by the computer software. Please disregard these errors. Please excuse any errors that have escaped final proofreading. RITA Long 10/20/23 1549 RITA Long 10/20/23 1649 Attending Addendum: I Dr Tyree Crook, personally performed a face to face diagnostic evaluation on this patient. I have reviewed the note authored by the advance practice provider including history, review of systems, physical examination, medical decision making and agree with the assessment and plan as written. I have seen and evaluated the patient,I have repeated the aquino portions of the physical exam and concur with the JASEN findings.I have reviewed all laboratory findings and imaging reprts/films.I agree with the plan as noted. [facility] 10-20-2023 History and physical note Images from the original note were not included. [facility] HOSPITALISTS MD Aidan Ojeda MD Kaleem Gill, MD Sneha Kommoori, MD Ruqiyya Vallejo, MD Shanell Kessler, MD Tyree Crook, MD Roxanna Armas, MD Griselda Bess, PRECISION AGRICULTURE TECHNICIAN Torrie Clark, PRECISION AGRICULTURE TECHNICIAN Rosalina Chowright, PRECISION AGRICULTURE TECHNICIAN Myra Parson, PRECISION AGRICULTURE TECHNICIAN Ashley Bucio, PRECISION AGRICULTURE TECHNICIAN Araceli Mott, PRECISION AGRICULTURE TECHNICIAN Celestina Hdezt, PRECISION AGRICULTURE TECHNICIAN Angle Murphydewey, PRECISION AGRICULTURE TECHNICIAN James Steve, PRECISION AGRICULTURE TECHNICIAN Lelia Ceasar, PRECISION AGRICULTURE TECHNICIAN Camilla Everardo, PRECISION AGRICULTURE TECHNICIAN Marta Kemar, PRECISION AGRICULTURE TECHNICIAN Ricci Monasarah beth, PRECISION AGRICULTURE TECHNICIAN Lauro Villar, PRECISION AGRICULTURE TECHNICIAN Joann Etienne, PRECISION AGRICULTURE TECHNICIAN Camilla Kathleen, [facility] Crystal Candelaria, [facility] Gaurav Mcconnell, [facility] Medicine History & Physical Patient: Honey Montes Date of : 1960 Room: PCP: Corina Cook MD Admission date: 10/19/2023 5:29 PM Encounter date: 10/20/23 SUBJECTIVE Honey Montes is a 63 y.o. female who presents with complaints of generalized weakness. She is being weak all over, unable to get out of bed. Patient was seen here yesterday following a fall in the bathroom where she struck the sink with her chest and sustained 2 rib fractures. She reports that her legs just give out from under heard any given time. She denies any fevers or chills. She is nauseous but not vomiting. She is complaining of pain at a rib fracture site but no shortness of breath. No hemoptysis. She is minor cough. No abdominal pain. She does relate that her and daughter at home are ill with cough and cold symptoms. ER Course: CBC is within acceptable limits. CMP shows minor hypokalemia with potassium of 3.4. Creatinine is slightly elevated at 1.15. Ethanol is negative. Troponin negative. Ammonia is normal. Viral panel shows positive Covid test. Chest x-ray shows no appreciable interval change. She has some haziness in the right base in the area of her rib fracture which likely represents atelectasis. She does not have any clinical features of pneumonia at this time. She is too weak to get herself out of bed. Caregivers are not comfortable with her going home. Will request observation admission Chief Complaint Patient presents with Medical Screening Allergies: Patient has no known allergies. Prior to Admission medications Medication Sig Start Date End Date Taking? Authorizing Provider ALPRAZolam (XANAX) 1 mg tablet Take 1 tablet (1 mg total) by mouth in the morning and 1 tablet (1 mg total) at noon and 1 tablet (1 mg total) in the evening. Yes Not In System Ref Prov aspirin 81 mg Take 1 tablet (81 mg total) by mouth in the morning. Yes Not In System Ref Prov atorvastatin (LIPITOR) 80 mg tablet Take 1 tablet (80 mg total) by mouth in the morning. Yes Not In System Ref Prov citalopram (CeleXA) 20 mg tablet Take 1 tablet (20 mg total) by mouth in the morning and 1 tablet (20 mg total) before bedtime. Yes Not In System Ref Prov clopidogreL (PLAVIX) 75 mg tablet Take 1 tablet (75 mg total) by mouth in the morning. Yes Not In System Ref Prov furosemide (LASIX) 20 mg tablet Take 1 tablet (20 mg total) by mouth daily. Yes Not In System Ref Prov gabapentin (NEURONTIN) 300 mg capsule Take 1 capsule (300 mg total) by mouth in the morning and 1 capsule (300 mg total) before bedtime. 02/21/18 Yes Not In System Ref Prov midodrine (PROAMATINE) 10 mg tablet Take 1 tablet (10 mg total) by mouth 2 (two) times a day. Yes Not In System Ref Prov morphine sulfate (MORPHINE ORAL) Take 10 mg by mouth in the morning and 10 mg before bedtime. Yes Not In System Ref Prov ONETOUCH DELICA LANCETS 33 gauge misc TEST FASTING QAM 08/08/17 Yes Not In System Ref Prov ONETOUCH ULTRA2 kit USE UTD 08/08/17 Yes Not In System Ref Prov oxyCODONE-acetaminophen (PERCOCET) 5-325 mg per tablet Take 1 tablet by mouth 3 (three) times a day as needed for pain for up to 3 days. Max Daily Amount: 3 tablets 10/18/23 10/21/23 Yes Raghavendra Negrete MD pantoprazole (PROTONIX) 40 mg EC tablet Take 1 tablet (40 mg total) by mouth in the morning. Yes Not In System Ref Prov potassium chloride (K-TAB,KLOR-CON) 10 MEQ CR tablet Take 1 tablet (10 mEq total) by mouth in the morning and 1 tablet (10 mEq total) before bedtime. Yes Not In System Ref Prov zolpidem (AMBIEN) 10 mg tablet Take 1 tablet (10 mg total) by mouth nightly as needed for sleep. Yes Not In System Ref Prov amiodarone (PACERONE) 200 mg tablet Take 1 tablet (200 mg total) by mouth in the morning. Not In System Ref Prov metoprolol succinate XL (TOPROL XL) 25 mg 24 hr tablet Take 1 tablet (25 mg total) by mouth in the morning. Not In System Ref Prov naloxegoL (MOVANTIK) 25 mg tablet tablet Take 1 tablet (25 mg total) by mouth in the morning. Not In System Ref Prov naloxone (NARCAN) 4 mg/actuation spray,non-aerosol nasal spray Administer 1 spray (4 mg total) into alternating nostrils as needed for opioid reversal. Patient not taking: Reported on 10/20/2023 10/18/23 Raghavendra Negrete MD nitroglycerin (NITROSTAT) 0.[address] 1 tablet (0.4 mg total) under the tongue as needed for chest pain. 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), Breast lesion (2016), CAD (coronary artery disease), Cancer ([facility]), CHF (congestive heart failure) ([facility]), Clotting disorder ([facility]), Diabetes mellitus ([facility]), Diabetes mellitus type 2, controlled ([facility]), Essential hypertension (08/28/2020), History of spleen injury, Insomnia, Myocardial infarction ([facility]) (03/30/2018), Neuroendocrine cancer ([facility]), Neuropathy, Peptic ulceration, Peripheral neuropathy, Recurrent UTI, and Visual impairment. Past Surgical History: Patient has a past surgical history that includes Breast cyst excision (Left, OVER 10 YEARS AGO); Breast cyst excision (Right, OVER 10 YEARS AGO); Appendectomy; Other surgical history (1983); Carotid stent; Oophorectomy (Bilateral, 2002); Hysterectomy (2002); Colonoscopy (N/A, 12/24/2018); Breast lumpectomy w/ needle localization (Left, 08/15/2017); Breast biopsy (Left, 07/2017); Colon surgery; Gastrectomy (2019); Cardiac catheterization; Cholecystectomy; Cardiac surgery; Small intestine surgery; Tubal ligation; Ventriculoperitoneal shunt; and Arm Surgery. Family History: Patient's family history includes COPD in her mother; Cancer in her father; Cervical cancer in her mother; Colon cancer in her maternal grandmother; Diabetes in her mother; Kidney disease in her father; Lung cancer in her maternal grandfather and mother; No Known Problems in her daughter, daughter, and son; Uterine cancer in her mother. Social History: Patient reports that she has been smoking cigarettes. She has a 30 pack-year smoking history. She has never used smokeless tobacco. She reports that she does not currently use alcohol. She reports that she does not use drugs. Review of Systems Review of Systems Constitutional: Negative for activity change, appetite change, chills, diaphoresis, fatigue and fever. HENT: Negative for tinnitus and trouble swallowing. Respiratory: Negative for cough, chest tightness, shortness of breath and wheezing. Cardiovascular: Negative for chest pain, palpitations and leg swelling. Gastrointestinal: Negative for abdominal pain, diarrhea, nausea and vomiting. Genitourinary: Negative for difficulty urinating. Musculoskeletal: Negative for gait problem. Skin: Negative for rash. Neurological: Negative for dizziness, syncope, speech difficulty, weakness, light-headedness, numbness and headaches. Psychiatric/Behavioral: Positive for agitation and dysphoric mood. Negative for sleep disturbance. The patient is nervous/anxious. OBJECTIVE BP 110/54 Pulse 65 Temp 36.8 C (98.2 F) (Oral) Resp 18 Ht 162.6 cm (5' 4.02 ) Wt 56.7 kg (124 lb 14.4 oz) SpO2 95% BMI 21.43 kg/m Intake/Output Summary (Last 24 hours) at 10/20/2023 1547 Last data filed at 10/20/2023 1445 Gross per 24 hour Intake 1377.58 ml Output 500 ml Net 877.58 ml Physical Exam Physical Exam Vitals and nursing note reviewed. Constitutional: General: She is not in acute distress. Appearance: She is ill-appearing. HENT: Head: Normocephalic and atraumatic. Right Ear: External ear normal. Left Ear: External ear normal. Nose: Nose normal. Mouth/Throat: Mouth: Mucous membranes are moist. Pharynx: Oropharynx is clear. Eyes: Extraocular Movements: Extraocular movements intact. Pupils: Pupils are equal, round, and reactive to light. Neck: Vascular: No carotid bruit or JVD. Cardiovascular: Rate and Rhythm: Normal rate and regular rhythm. Pulses: Normal pulses. Pulmonary: Effort: Pulmonary effort is normal. Breath sounds: Rales (Bibasilar rales) present. Abdominal: General: Bowel sounds are normal. Palpations: Abdomen is soft. Tenderness: There is no abdominal tenderness. There is no right CVA tenderness or left CVA tenderness. Musculoskeletal: Right lower leg: No edema. Left lower leg: No edema. Lymphadenopathy: Cervical: No cervical adenopathy. Skin: General: Skin is warm and dry. Capillary Refill: Capillary refill takes less than 2 seconds. Neurological: General: No focal deficit present. Mental Status: She is alert and oriented to person, place, and time. Motor: Weakness present. Psychiatric: Mood and Affect: Mood is anxious. Behavior: Behavior is agitated. Thought Content: Thought content normal. Judgment: Judgment is inappropriate. Comments: Inappropriate judgment related to health. Patient wanting to go home and smoke cigarettes even though she required oxygen on admission. Medications Scheduled: ALPRAZolam, 1 mg, oral, TID amiodarone, 200 mg, oral, Daily aspirin, 81 mg, oral, Daily atorvastatin, 80 mg, oral, Daily citalopram, 20 mg, oral, BID clopidogreL, 75 mg, oral, Daily dexAMETHasone, 6 mg, intravenous, Q24H MARCO enoxaparin (LOVENOX) injection, 40 mg, subcutaneous, Daily furosemide, 40 mg, intravenous, Once furosemide, 20 mg, oral, Daily gabapentin, 300 mg, oral, BID metoprolol succinate XL, 25 mg, oral, Daily midodrine, 10 mg, oral, BID morphine, 15 mg, oral, Q12H MARCO nicotine, 1 patch, transdermal, Daily pantoprazole, 40 mg, oral, Daily potassium chloride, 10 mEq, oral, BID [COMPLETED] remdesivir, 200 mg, intravenous, Once FOLLOWED BY [START ON 10/21/2023] remdesivir, 100 mg, intravenous, Q24H Infusions: dextrose 5 % in water, 100 mL/hr dextrose 5 % and sodium chloride 0.9 % with KCl 20 mEq/L, 125 mL/hr, Last Rate: 125 mL/hr (10/20/23 1253) sodium chloride 0.9 %, 20 mL/hr As Needed: acetaminophen alum-mag hydroxide-simeth dextrose dextrose 5 % in water dextrose 50 % in water (D50W) glucagon (human recombinant) ipratropium-albuteroL magnesium sulfate magnesium sulfate ondansetron oxyCODONE-acetaminophen potassium chloride OR potassium chloride sennosides-docusate sodium sodium chloride sodium chloride sodium chloride 0.9 % zolpidem Allergies: Patient has no known allergies. Labs Recent Results (from the past 24 hour(s)) CBC auto differential Collection Time: 10/19/23 6:02 PM Result Value Ref Range White Blood Cells 7.9 4.0 - 11.0 X10E9/L RBC count 4.37 3.80 - 5.20 X10E12/L Hemoglobin 12.5 11.7 - 15.5 g/dL Hematocrit 38.5 35 - 47 % MCV 88 80 - 100 fL MCH 28.6 27 - 34 pg MCHC 32.4 32 - 36 g/dL RDW 15.9 (H) 11.5 - 15.0 % Platelets 333 150 - 450 X10E9/L MPV 8.9 7 - 12 fL % neutrophils 60.7 % % lymphocytes 28.2 % % monocytes 8.7 % % eosinophils 1.8 % % Basophils 0.6 % Neutrophils Absolute (A) 4.8 1.5 - 6.6 X10E9/L Lymphocytes Absolute 2.2 1.0 - 3.5 X10E9/L Monocytes Absolute 0.7 0 - 0.9 X10E9/L Eosinophils Absolute 0.1 0.0 - 0.4 X10E9/L Basophils Absolute 0.0 0.0 - 0.2 X10E9/L Comprehensive metabolic panel Collection Time: 10/19/23 6:02 PM Result Value Ref Range Sodium 139 134 - 146 mmol/L Potassium, Bld 3.4 (L) 3.5 - 5.0 mmol/L Chloride 101 98 - 109 mmol/L CO2 27 22 - 32 mmol/L Anion gap 11 5 - 15 mmol/L BUN 16 5 - 27 mg/dL Creatinine 1.15 (H) 0.40 - 1.00 mg/dL Glucose 77 65 - 99 mg/dL Calcium 9.1 8.5 - 10.5 mg/dL Total Protein 7.9 6.0 - 8.0 g/dL Albumin 3.8 3.2 - 5.3 g/dL Alkaline Phosphatase 87 39 - 130 U/L AST 19 0 - 41 U/L ALT 29 0 - 31 U/L Total bilirubin 0.7 0.3 - 1.2 mg/dL eGFR (CKD-EPI)non-race dependent 54 (L) >59 ml/min/1.73sq.m Blood culture Collection Time: 10/19/23 6:02 PM Specimen: Blood LEFT~ANTECUBITAL Result Value Ref Range Culture NO GROWTH <24 HRS Troponin I Collection Time: 10/19/23 6:02 PM Result Value Ref Range Troponin I <0.01 0.00 - 0.04 ng/mL Magnesium Collection Time: 10/19/23 6:02 PM Result Value Ref Range Magnesium 2.0 1.8 - 2.6 mg/dL Ethanol Collection Time: 10/19/23 6:02 PM Result Value Ref Range Ethanol Lvl <0.01 0.00 - 0.08 g/dL Blood culture Collection Time: 10/19/23 6:18 PM Specimen: Blood RIGHT~ANTECUBITAL Result Value Ref Range Culture NO GROWTH <24 HRS Ammonia Collection Time: 10/19/23 6:18 PM Result Value Ref Range Ammonia 15 11 - 35 umol/L SARS/FLU A+B/RSV by NAAT/Molecular (M4RT Collection Tube) Collection Time: 10/19/23 6:30 PM Result Value Ref Range FLU A PCR Negative Negative^Negative FLU B PCR Negative Negative^Negative RSV by PCR Negative Negative^Negative SARS CoV 2 BY PCR Detected (A) Not Detected^Not Detected CBC auto differential Collection Time: 10/20/23 5:08 AM Result Value Ref Range White Blood Cells 9.2 4.0 - 11.0 X10E9/L RBC count 3.51 (L) 3.80 - 5.20 X10E12/L Hemoglobin 10.2 (L) 11.7 - 15.5 g/dL Hematocrit 31.3 (L) 35 - 47 % MCV 89 80 - 100 fL MCH 29.0 27 - 34 pg MCHC 32.5 32 - 36 g/dL RDW 16.3 (H) 11.5 - 15.0 % Platelets 306 150 - 450 X10E9/L MPV 8.8 7 - 12 fL % neutrophils 64.1 % % lymphocytes 24.0 % % monocytes 9.8 % % eosinophils 1.4 % % Basophils 0.7 % Neutrophils Absolute (A) 5.9 1.5 - 6.6 X10E9/L Lymphocytes Absolute 2.2 1.0 - 3.5 X10E9/L Monocytes Absolute 0.9 0 - 0.9 X10E9/L Eosinophils Absolute 0.1 0.0 - 0.4 X10E9/L Basophils Absolute 0.1 0.0 - 0.2 X10E9/L Procalcitonin Collection Time: 10/20/23 8:52 AM Result Value Ref Range Procalcitonin 0.07 (H) <0.05 ng/mL Drug Screen, Urine Collection Time: 10/20/23 2:30 PM Result Value Ref Range Amphetamine/methamphetamine Negative Negative^Negative Barbiturate Screen, Ur Negative Negative^Negative Benzodiazepine Screen, Urine Positive (A) Negative^Negative THC, urine Negative Negative^Negative Cocaine (metabolite) Negative Negative^Negative Opiate Quant, Ur Positive (A) Negative^Negative Phencyclidine Negative Negative^Negative Oxycodone Positive (A) Negative^Negative Methadone Negative Negative^Negative Ecstasy Negative Negative^Negative Urinalysis Collection Time: 10/20/23 2:30 PM Result Value Ref Range Color YELLOW YELLOW^YELLOW Turbidity CLEAR CLEAR^CLEAR Specific gravity 1.010 1.003 - 1.035 Nitrite Negative Negative^Negative Ph urine 6.0 5.0 - 8.5 Leukocyte esterase Negative Negative^Negative Protein Negative Negative^Negative mg/dL Glucose, Ur Negative Negative^Negative mg/dL Ketones urine Negative Negative^Negative mg/dL Urobilinogen 0.2 <1.1 eu/dL Bilirubin, urine Negative Negative^Negative Hemoglobin Negative Negative^Negative Radiology X-ray chest 1 view Result Date: 10/19/2023 Narrative: CLINICAL INFORMATION: Dyspnea, acute chest pain, left eighth and ninth rib fractures. TECHNIQUE: Chest, 1 view. COMPARISON: Chest radiograph 06/06/2023. Chest CT from yesterday. FINDINGS Cardiomediastinal silhouette does not appear significantly changed. Left lung base opacification. Displaced left eighth and ninth rib fractures. IMPRESSION: * No significant interval change since yesterday. Left lung base opacifications most likely represent scarring and atelectasis, though early pneumonia cannot be excluded in the appropriate clinical setting. Approved by Resident Kehinde Hensley MD on 10/19/2023 7:46 PM I, Shivam Hendrix MD have personally reviewed the image(s) and agree with and/or edited the report Finalized by Shivam Hendrix MD on 10/19/2023 7:[address] chest without contrast Result Date: 10/18/2023 Narrative: Indication: Chest trauma blunt. TECHNIQUE: Unenhanced CT of the chest is performed. Lack of IV contrast significantly compromises evaluation of vascular structures especially in the setting of trauma. No prior comparison. FINDINGS: Thyroid is not enlarged in its visualized portion. Thoracic aorta shows normal caliber. Pulmonary outflow tract is not significantly dilated. Extensive coronary artery calcification and or stents noted. No significant mediastinal or hilar lymphadenopathy appreciated. A pleural pericardial effusion is not seen. The heart appears mildly enlarged. Images through upper most abdomen show postsurgical changes about the stomach. There is mild bilateral adrenal hyperplasia which is unchanged. Lung windows show mosaic attenuation greatest within lung bases. There is a groundglass nodule of the left upper lobe measuring up to 11.5 mm with solid component measuring 4 mm. Bronchial wall thickening within lower lobe region noted. Additional left upper lobe nodule shows lobulated margin without calcification and measures 6 mm. Small nodule within lower lobe region would be difficult to exclude with airspace process present. Bone windows show fracture left posterior lateral eighth and ninth ribs with minimal displacement. No pneumothorax seen. Vertebral body heights and alignment are satisfactory. IMPRESSION: 1. Mildly displaced left posterior lateral eighth and ninth rib fractures. 2. Mosaic attenuation within lung bases with bronchial wall thickening typically small airway disease. Portion of the appearance could represent some pulmonary contusion. 3. Worrisome lesion left upper lobe which is predominantly groundglass with small solid components. Solid components measure only 4 mm. Additional solid lobulated nodule measures 6 mm. Follow-up exam in 6 months recommended. 4. Compromised evaluation performed without IV contrast. All CT scans at this facility use dose modulation, iterative reconstruction, and/or weight based dosing when appropriate to reduce radiation dose to as low as reasonably achievable. Finalized by Amina Ramírez MD on 10/18/2023 10:15 AM HOSPITAL PROBLEM LIST Principal Problem: COVID-19 Active Problems: Diabetes mellitus type 2, controlled ([facility]) Anxiety disorder, unspecified Chronic diastolic (congestive) heart failure ([facility]) Dyslipidemia Essential hypertension Hypokalemia Generalized weakness Severe malnutrition ([facility]) Smoker ASSESSMENT & PLAN COVID-19 infection: O2 as needed. Requiring 4 L per nasal cannula on admission. Remdesivir and Decadron 6 mg ordered. Diabetes type 2: Not on any medications at home. No significant hypo or hyperglycemia. Will continue to monitor blood glucose daily on met panel. Dyslipidemia: Continue home statin. Hypertension: Normotensive. Continue metoprolol. Hypokalemia: Supplement. Monitor electrolytes daily replace per protocol. Generalized weakness: PT OT to see. Severe malnutrition: Nutrition consult. Nutritional supplements. Chronic diastolic heart failure: Continue home Lasix. Rales noted bibasilar. One time dose IV Lasix 40 mg. Discontinue IV fluids. Monitor kidney function daily. Smoker: Education provided about smoking cessation. Nicoderm patch ordered. Patient adamant today that she is going to leave whether I discharge her not. She states she needs to go home and smoke a cigarette. I advised patient that I could not discharge her and that she would need to stay at least another day for her remdesivir and should actually stay for 2 more days to get the full 3 day course. Patient denies need for any further treatment. I again explained to patient that she required oxygen on admission and that she should not go home to smoke cigarettes. Patient states she will attempt the Nicoderm patch but if it does not work she is leaving against medical advice. I again explained benefit of staying versus risk of leaving. Admission orders placed and home medications reconciled. DVT prophylaxis: EPC's and Lovenox. GI prophylaxis. Protonix PT/OT to evaluate and treat. DC planning: Discharge home in 2 days after course of remdesivir. James Wilson, HALI-KAT, 10/20/2023 3:47 PM [facility] Medicine - [facility] Hospitalists 7AM-7PM: Message rounding JASEN in [employer] or page through [employer]. 7PM-7AM: Page on-call JASEN through our answering service, . This note is dictated with the use of M*Modal. Please note that this dictation was completed with computer voice recognition software. Quite often unanticipated grammatical, syntax, homophones, and other interpretive errors are inadvertently transcribed by the computer software. Please disregard these errors. Please excuse any errors that have escaped final proofreading. James Wilson, [facility] 10/20/23 [id number] James Wilson, HALI-[facility] 10/20/23 [id number] Attending Addendum: I Dr Tyree Crook, personally performed a face to face diagnostic evaluation on this patient. I have reviewed the note authored by the advance practice provider including history, review of systems, physical examination, medical decision making and agree with the assessment and plan as written. I have seen and evaluated the patient,I have repeated the aquino portions of the physical exam and concur with the JASEN findings.I have reviewed all laboratory findings and imaging reprts/films.I agree with the plan as noted. documented in this encounter [facility] [employer] [facility] 10-20-2023 Plan of care note Problem: Pain Goal: Patient goal is pain score less than 4, able to rest, and participant in treatment plan as appropriate Description: INTERVENTIONS: 1. Encourage patient or legal community health program representative to report early pain and ask for pain medicine when needed 2. Assess pain using appropriate pain scale and include the scale used when documenting 3. Administer analgesics based on type and severity of pain and evaluate response within appropriate time frame 4. Implement non-pharmacological measures as appropriate and evaluate response 5. Consider cultural and social influences on pain and pain management 6. Notify LIP if interventions ineffective or patient reports new pain 7. Monitor vital signs including pulse ox, end-tidal CO2 based on pain intervention 8. Reassess pain per policy 9. Teach patient or legal community health program representative interventions for comforting Outcome: Progressing Note: Evaluation of progress towards goal: Pt able to report pain according to 0/10 pain scale. Medicating patient for pain per orders. Problem: Safety Goal: Patient will be injury free during hospitalization Description: INTERVENTIONS: 1. Assess patient's risk for falls and implement fall prevention plan of care per policy 2. Provide and maintain a safe environment 3. Proper use of double Identifiers 4. Medication administration using the 5 rights 5. Hand hygiene 6. Specimens are labeled at the bedside 7. Instruct patient/ patient community health program representative about use of safety devices 8. Include patient/ patient community health program representative in decisions related to safety Outcome: Progressing Note: Evaluation of progress towards goal: Pt remains free from falls or accidental injury during stay. Fall prevention measures in place. Hourly rounding per RN and NA maintained. Problem: Knowledge Deficit Goal: Patient/patient community health program representative demonstrates understanding of disease process, treatment plan, medications, and discharge instructions Description: INTERVENTIONS 1. Complete learning assessment and assess knowledge base 2. Provide teaching at level of understanding 3. Provide teaching via preferred learning method(s) Outcome: Progressing Note: Evaluation of progress towards goal: POC discussed with patient. Questions answered PRN. [facility] 10-19-2023 Physician Emergency department Note Images from the original note were not included. History Chief Complaint Patient presents with Medical Screening HPI Patient here with complaints of generalized weakness. She is being weak all over, unable to get out of bed. Patient was seen here yesterday following a fall in the bathroom where she struck the sink with her chest and sustained 2 rib fractures. She reports that her legs just give out from under heard any given time. She denies any fevers or chills. She is nauseous but not vomiting. She is complaining of pain at a rib fracture site but no shortness of breath. No hemoptysis. She is minor cough. No abdominal pain. She does relate that her and daughter at home are ill with cough and cold symptoms. Patient Active Problem List Diagnosis Atypical ductal hyperplasia of left breast Myocardial infarction ([facility]) Diabetes mellitus type 2, controlled ([facility]) Adenomatous polyp of sigmoid colon Syncope and collapse Anxiety disorder, unspecified Coronary artery disease involving coronary bypass graft Chronic diastolic (congestive) heart failure ([facility]) Chronic narcotic use Cigarette nicotine dependence without complication Depression Dyslipidemia Essential hypertension Hypokalemia Primary malignant neuroendocrine neoplasm of small intestine ([facility]) Weakness Severe malnutrition ([facility]) Hypotension Colitis Electrolyte imbalance Acute respiratory failure with hypoxia ([facility]) Intussusception ([facility]) Past Medical History: Diagnosis Date Anxiety and depression 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 Breast lesion 2017 ATYPICAL HYPERPLASIA LEFT BREAST CAD (coronary artery disease) S/P [place] WITH STENTS 03/2018 & 04/2018 Cancer ([facility]) CHF (congestive heart failure) ([facility]) Clotting disorder ([facility]) Diabetes mellitus ([facility]) DX 05/2017 Diabetes mellitus type 2, controlled ([facility]) Essential hypertension 08/28/2020 History of spleen injury spleen repair 1984 Insomnia Myocardial infarction ([facility]) 03/30/2018 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 PAGE, atypical ductal hyperplasia BREAST CYST EXCISION Left OVER 10 YEARS AGO BREAST CYST EXCISION Right OVER 10 YEARS AGO CARDIAC CATHETERIZATION CARDIAC SURGERY CAROTID STENT x3 CHOLECYSTECTOMY COLON SURGERY COLONOSCOPY N/A 12/24/2018 Performed by Kalen Osborne MD at [facility] GASTRECTOMY 2020 HYSTERECTOMY 2003 COMPLETE LUMPECTOMY BREAST WITH NEEDLE LOCALIZATION FS Left 08/15/2017 Performed by Margarito Page DO at [facility] OOPHORECTOMY Bilateral 2002 OTHER SURGICAL HISTORY 1983 spleen repair SMALL INTESTINE SURGERY TUBAL LIGATION VENTRICULOPERITONEAL SHUNT Travel Screening Question Response Have you been in contact with someone who was sick? No / Unsure Do you have any of the following new or worsening symptoms? None of these Have you traveled internationally or domestically in the last month? No Travel History Travel since 09/18/23 No documented travel since 09/18/23 Family History Problem Relation Age of Onset Diabetes Mother Lung cancer Mother Cervical cancer Mother COPD Mother Uterine cancer Mother Kidney disease Father Cancer Father Lung cancer Maternal Grandfather No Known Problems Daughter No Known Problems Son No Known Problems Daughter Colon cancer Maternal Grandmother Breast cancer Neg Hx Social History Substance and Sexual Activity Drug Use No Social History Tobacco Use Smoking status: Every Day Packs/day: 1.00 Years: 30.00 Additional pack years: 0.00 Total pack years: 30.00 Types: Cigarettes Smokeless tobacco: Never Vaping Use Vaping Use: Never used Substance Use Topics Alcohol use: Not Currently Drug use: No Review of Systems Constitutional: Positive for fatigue. Negative for chills and fever. HENT: Negative for rhinorrhea and sore throat. Respiratory: Positive for cough. Negative for shortness of breath. Cardiovascular: Positive for chest pain/discomfort. Gastrointestinal: Positive for nausea. Negative for abdominal pain, diarrhea and vomiting. Genitourinary: Negative for dysuria, frequency and hematuria. Musculoskeletal: Negative for arthralgias and myalgias. Skin: Negative for rash. Neurological: Positive for weakness and light-headedness. Negative for dizziness. Physical Exam ED Triage Vitals [10/19/23 1733] Temp Heart Rate Resp BP SpO2 36.8 C (98.2 F) 51 18 (!) 84/38 100 % Temp src Heart Rate Source Patient Position BP Location FiO2 (%) -- -- -- -- -- Vitals: 10/19/23 1745 10/19/23 1800 10/19/23 1815 10/19/23 1830 BP: (!) 84/38 (!) 77/43 (!) 74/42 99/59 Pulse: 52 52 Resp: 16 12 Temp: SpO2: (!) 81% 95% 95% Weight: Height: Physical Exam Constitutional: General: She is not in acute distress. Appearance: She is well-developed. Comments: Cachectic frail chronically ill HENT: Head: Normocephalic and atraumatic. Eyes: Pupils: Pupils are equal, round, and reactive to light. Neck: Trachea: No tracheal deviation. Cardiovascular: Rate and Rhythm: Normal rate and regular rhythm. Heart sounds: Normal heart sounds. Pulmonary: Effort: Pulmonary effort is normal. Breath sounds: Normal breath sounds. Abdominal: General: Bowel sounds are normal. There is no distension. Palpations: Abdomen is soft. Tenderness: There is no abdominal tenderness. Skin: General: Skin is warm and dry. Capillary Refill: Capillary refill takes less than 2 seconds. Coloration: Skin is pale. Neurological: Mental Status: She is alert and oriented to person, place, and time. Procedure Procedures Re-Evaluation Re-Evaluation ED Course ED Course as of 10/19/23 2340 Evelyne Oct 19, 2023 183 Patient here for complaints of generalized weakness fatigue unable to get out of bed, seen here yesterday following a fall in the bathroom where she sustained 2 rib fractures Differential diagnosis: Dehydration, orthostasis, COVID, sepsis [RK] 1920 CBC is within acceptable limits. CMP shows minor hypokalemia with potassium of 3.4. Creatinine is slightly elevated at 1.15. Ethanol is negative. Troponin magnesium ment negative. Ammonia is normal [RK] 2045 COVID-19(!): Detected Out of windoer for palxovid [EM] 2107 Patient is COVID positive. Chest x-ray shows no appreciable interval change. She has some haziness in the right base in the area of her rib fracture which likely represents atelectasis. She does not have any clinical features of pneumonia at this time. She is too weak to get herself out of bed. Caregivers are not comfortable with her going home. Will request observation admission [RK] 2339 Admitting for COVId and worsening weakness. Intermittent confusion [EM] ED Course User Index [EM] Tomy Gomez MD [RK] Ricci Aguirre, MOLD REPAIRER-PRECISION AGRICULTURE TECHNICIAN Clinical Impressions as of 10/19/23 2340 COVID-19 Generalized weakness Hypokalemia [facility] Medical Decision Making 2054 Dr. Gomez achieved IV access via Ultrasound guided IV. Amount and/or Complexity of Data Reviewed Labs: ordered. Decision-making details documented in ED Course. Radiology: ordered. ECG/medicine tests: ordered. Risk Prescription drug management. Cheikh Chaudhry ([email or web address]) documented for Dr. Tomy Gomez MD who thoroughly reviewed, edited, and approved this for accuracy and completeness. [facility] Honey Montes is a 63 y.o. female who presented in the emergency department with a chief complaint of Medical Screening. Pt daughter states she is talking and not making any sense starting today. History was obtained from patient and daughter Dr. Gomez personally saw and evaluated the patient and discussed the management with nurse practitioner and reviewed their note and agrees with the documentation. Dr. Gomez performed a substantive portion of the physical exam Exam findings as follows: Constitutional: Awake and alert HENT: Head normocephalic and atraumatic Eyes: Conjunctiva unremarkable Cardiovascular: Heart rate regular Pulmonary: Effort Normal, no respiratory distress Abdominal: non-distended, no visible mass Skin: Warm and dry Musculoskeletal: Moving all extremities spontaneously Neurological: AOx4, no focal deficits PMHX: Patient visit complicated by the following medical conditions: has a past medical history of Anxiety and depression, Atypical hyperplasia of breast, Breast lesion, CAD (coronary artery disease), Cancer ([facility]), CHF (congestive heart failure) ([facility]), Clotting disorder ([facility]), Diabetes mellitus ([facility]), Diabetes mellitus type 2, controlled ([facility]), Essential hypertension, History of spleen injury, Insomnia, Myocardial infarction ([facility]), Neuroendocrine cancer ([facility]), Neuropathy, Peptic ulceration, Peripheral neuropathy, Recurrent UTI, and Visual impairment. Chart Review: . Social Factors: No detrimental socioeconomic factors were identified at this time. Consults: Plan of Care: Orders Placed This Encounter Procedures Blood culture Blood culture SARS/FLU A+B/RSV by NAAT/Molecular (M4RT Collection Tube) Urine culture X-ray chest 1 view CBC auto differential Comprehensive metabolic panel Troponin I Magnesium Drug Screen, Urine Ethanol Ammonia Cardiac monitoring NIBP Continuous pulse oximetry POCT Nursing Urine Macroscopic UA ECG 12 lead Saline lock IV ----- MDM RESULTS ------ Labs: Lab work was ordered and independently reviewed/interpreted by .(Details per ED course) Labs Reviewed CBC WITH AUTO DIFFERENTIAL - Abnormal; Notable for the following components: Result Value RDW 15.9 (*) All other components within normal limits BLOOD CULTURE BLOOD CULTURE SARS/FLU A+B/RSV BY NAAT/MOLECULAR (M4RT COLLECTION TUBE) URINE CULTURE AMMONIA COMPREHENSIVE METABOLIC PANEL TROPONIN I MAGNESIUM DRUG SCREEN, URINE ETHANOL POCT NURSING URINE MACROSCOPIC UA Radiology: Imaging was ordered and independently reviewed and interpreted by Dr. Gomez per below (Specific results per ED course) X-ray chest 1 view Result Date: 10/19/2023 CLINICAL INFORMATION: Dyspnea, acute chest pain, left eighth and ninth rib fractures. TECHNIQUE: Chest, 1 view. COMPARISON: Chest radiograph 06/06/2023. Chest CT from yesterday. FINDINGS Cardiomediastinal silhouette does not appear significantly changed. Left lung base opacification. Displaced left eighth and ninth rib fractures. IMPRESSION: * No significant interval change since yesterday. Left lung base opacifications most likely represent scarring and atelectasis, though early pneumonia cannot be excluded in the appropriate clinical setting. Approved by Resident Kehinde Hensley MD on 10/19/2023 7:46 PM I, Shivam Hendrix MD have personally reviewed the image(s) and agree with and/or edited the report Finalized by Shivam Hendrix MD on 10/19/2023 7:53 PM Diagnosis: The primary encounter diagnosis was COVID-19. Diagnoses of Generalized weakness and Hypokalemia were also pertinent to this visit. Differential diagnoses have been carefully considered. Based on the patient's current clinical presentation there is low suspicion for the following conditions at this time: FLU, --------- NURSING NOTES AND VITALS REVIEWED The nursing notes within the ED encounter and vital signs as below have been reviewed. BP 99/59 Pulse 52 Temp 36.8 C (98.2 F) Resp 12 Ht 162.6 cm (5' 4.02 ) Wt 52.2 kg (115 lb 1.3 oz) SpO2 95% BMI 19.74 kg/m Medications: She had of their symptoms with the following: Medications sodium chloride 0.9 % flush 3 mL (has no administration in time range) sodium chloride 0.9 % bolus (has no administration in time range) Tomy Gomez MD Emergency Medicine Attending Physician Attestation No Additional Attestations [facility]52 [facility] 10/19/23 205 RITA Loja 10/19/23 214 RITA Loja 10/19/23 214 Tomy Gomez MD 10/20/23 1457 [facility] 10-19-2023 Emergency department Note Images from the original note were not included. History Chief Complaint Patient presents with Medical Screening HPI Patient here with complaints of generalized weakness. She is being weak all over, unable to get out of bed. Patient was seen here yesterday following a fall in the bathroom where she struck the sink with her chest and sustained 2 rib fractures. She reports that her legs just give out from under heard any given time. She denies any fevers or chills. She is nauseous but not vomiting. She is complaining of pain at a rib fracture site but no shortness of breath. No hemoptysis. She is minor cough. No abdominal pain. She does relate that her and daughter at home are ill with cough and cold symptoms. Patient Active Problem List Diagnosis Atypical ductal hyperplasia of left breast Myocardial infarction ([facility]) Diabetes mellitus type 2, controlled ([facility]) Adenomatous polyp of sigmoid colon Syncope and collapse Anxiety disorder, unspecified Coronary artery disease involving coronary bypass graft Chronic diastolic (congestive) heart failure ([facility]) Chronic narcotic use Cigarette nicotine dependence without complication Depression Dyslipidemia Essential hypertension Hypokalemia Primary malignant neuroendocrine neoplasm of small intestine ([facility]) Weakness Severe malnutrition ([facility]) Hypotension Colitis Electrolyte imbalance Acute respiratory failure with hypoxia ([facility]) Intussusception ([facility]) Past Medical History: Diagnosis Date Anxiety and depression 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 Breast lesion 2017 ATYPICAL HYPERPLASIA LEFT BREAST CAD (coronary artery disease) S/P [place] WITH STENTS 03/2018 & 04/2018 Cancer ([facility]) CHF (congestive heart failure) ([facility]) Clotting disorder ([facility] Diabetes mellitus ([facility]) DX 05/2017 Diabetes mellitus type 2, controlled ([facility]) Essential hypertension 08/28/2020 History of spleen injury spleen repair 1984 Insomnia Myocardial infarction ([facility]) 03/30/2018 Neuroendocrine cancer ([facility]) small bowel Neuropathy Peptic ulceration Peripheral neuropathy Recurrent UTI Visual impairment contacts, glasses Past Surgical History: Procedure Laterality Date APPENDECTOMY ARM SURGERY BREAST BIOPSY Left 07/2017 STEREOTACTIC BREAST BIOPSY, DR. PAGE, atypical ductal hyperplasia BREAST CYST EXCISION Left OVER 10 YEARS AGO BREAST CYST EXCISION Right OVER 10 YEARS AGO CARDIAC CATHETERIZATION CARDIAC SURGERY CAROTID STENT x3 CHOLECYSTECTOMY COLON SURGERY COLONOSCOPY N/A 12/24/2018 Performed by Kalen Osborne MD at [facility] GASTRECTOMY 2020 HYSTERECTOMY 2003 COMPLETE LUMPECTOMY BREAST WITH NEEDLE LOCALIZATION FS Left 08/15/2017 Performed by Margarito Page DO at [facility] OOPHORECTOM[facility] Bilateral 2002 OTHER SURGICAL HISTORY 1983 spleen repair SMALL INTESTINE SURGERY TUBAL LIGATION VENTRICULOPERITONEAL SHUNT Travel Screening Question Response Have you been in contact with someone who was sick? No / Unsure Do you have any of the following new or worsening symptoms? None of these Have you traveled internationally or domestically in the last month? No Travel History Travel since 09/18/23 No documented travel since 09/18/23 Family History Problem Relation Age of Onset Diabetes Mother Lung cancer Mother Cervical cancer Mother COPD Mother Uterine cancer Mother Kidney disease Father Cancer Father Lung cancer Maternal Grandfather No Known Problems Daughter No Known Problems Son No Known Problems Daughter Colon cancer Maternal Grandmother Breast cancer Neg Hx Social History Substance and Sexual Activity Drug Use No Social History Tobacco Use Smoking status: Every Day Packs/day: 1.00 Years: 30.00 Additional pack years: 0.00 Total pack years: 30.00 Types: Cigarettes Smokeless tobacco: Never Vaping Use Vaping Use: Never used Substance Use Topics Alcohol use: Not Currently Drug use: No Review of Systems Constitutional: Positive for fatigue. Negative for chills and fever. HENT: Negative for rhinorrhea and sore throat. Respiratory: Positive for cough. Negative for shortness of breath. Cardiovascular: Positive for chest pain/discomfort. Gastrointestinal: Positive for nausea. Negative for abdominal pain, diarrhea and vomiting. Genitourinary: Negative for dysuria, frequency and hematuria. Musculoskeletal: Negative for arthralgias and myalgias. Skin: Negative for rash. Neurological: Positive for weakness and light-headedness. Negative for dizziness. Physical Exam ED Triage Vitals [10/19/23 1733] Temp Heart Rate Resp BP SpO2 36.8 C (98.2 F) 51 18 (!) 84/38 100 % Temp src Heart Rate Source Patient Position BP Location FiO2 (%) -- -- -- -- -- Vitals: 10/19/23 1745 10/19/23 1800 10/19/23 1815 10/19/23 1830 BP: (!) 84/38 (!) 77/43 (!) 74/42 99/59 Pulse: 52 52 Resp: 16 12 Temp: SpO2: (!) 81% 95% 95% Weight: Height: Physical Exam Constitutional: General: She is not in acute distress. Appearance: She is well-developed. Comments: Cachectic frail chronically ill HENT: Head: Normocephalic and atraumatic. Eyes: Pupils: Pupils are equal, round, and reactive to light. Neck: Trachea: No tracheal deviation. Cardiovascular: Rate and Rhythm: Normal rate and regular rhythm. Heart sounds: Normal heart sounds. Pulmonary: Effort: Pulmonary effort is normal. Breath sounds: Normal breath sounds. Abdominal: General: Bowel sounds are normal. There is no distension. Palpations: Abdomen is soft. Tenderness: There is no abdominal tenderness. Skin: General: Skin is warm and dry. Capillary Refill: Capillary refill takes less than 2 seconds. Coloration: Skin is pale. Neurological: Mental Status: She is alert and oriented to person, place, and time. Procedure Procedures Re-Evaluation Re-Evaluation ED Course ED Course as of 10/19/23 2340 Evelyne Oct 19, 2023 183 Patient here for complaints of generalized weakness fatigue unable to get out of bed, seen here yesterday following a fall in the bathroom where she sustained 2 rib fractures Differential diagnosis: Dehydration, orthostasis, COVID, sepsis [RK] 192 CBC is within acceptable limits. CMP shows minor hypokalemia with potassium of 3.4. Creatinine is slightly elevated at 1.15. Ethanol is negative. Troponin magnesium ment negative. Ammonia is normal [RK] 2045 COVID-19(!): Detected Out of windoer for palxovid [EM] 2107 Patient is COVID positive. Chest x-ray shows no appreciable interval change. She has some haziness in the right base in the area of her rib fracture which likely represents atelectasis. She does not have any clinical features of pneumonia at this time. She is too weak to get herself out of bed. Caregivers are not comfortable with her going home. Will request observation admission [RK] 2338 Admitting for COVId and worsening weakness. Intermittent confusion [EM] ED Course User Index [EM] Tomy Gomez MD [RK] Ricci Aguirre, MOLD REPAIRER-PRECISION AGRICULTURE TECHNICIAN Clinical Impressions as of 10/19/23 234 COVID-19 Generalized weakness Hypokalemia [facility] Medical Decision Making 2054 Dr. Gomez achieved IV access via Ultrasound guided IV. Amount and/or Complexity of Data Reviewed Labs: ordered. Decision-making details documented in ED Course. Radiology: ordered. ECG/medicine tests: ordered. Risk Prescription drug management. Cheikh Chaudhry (scribe) documented for Dr. Tomy Gomez MD who thoroughly reviewed, edited, and approved this for accuracy and completeness. [facility] Honey Montes is a 63 y.o. female who presented in the emergency department with a chief complaint of Medical Screening. Pt daughter states she is talking and not making any sense starting today. History was obtained from patient and daughter Dr. Gomez personally saw and evaluated the patient and discussed the management with nurse practitioner and reviewed their note and agrees with the documentation. Dr. Gomez performed a substantive portion of the physical exam Exam findings as follows: Constitutional: Awake and alert HENT: Head normocephalic and atraumatic Eyes: Conjunctiva unremarkable Cardiovascular: Heart rate regular Pulmonary: Effort Normal, no respiratory distress Abdominal: non-distended, no visible mass Skin: Warm and dry Musculoskeletal: Moving all extremities spontaneously Neurological: AOx4, no focal deficits PMHX: Patient visit complicated by the following medical conditions: has a past medical history of Anxiety and depression, Atypical hyperplasia of breast, Breast lesion, CAD (coronary artery disease), Cancer ([facility]), CHF (congestive heart failure) ([facility]), Clotting disorder ([facility]), Diabetes mellitus ([facility]), Diabetes mellitus type 2, controlled ([facility]), Essential hypertension, History of spleen injury, Insomnia, Myocardial infarction ([facility]), Neuroendocrine cancer ([facility]), Neuropathy, Peptic ulceration, Peripheral neuropathy, Recurrent UTI, and Visual impairment. Chart Review: . Social Factors: No detrimental socioeconomic factors were identified at this time. Consults: Plan of Care: Orders Placed This Encounter Procedures Blood culture Blood culture SARS/FLU A+B/RSV by NAAT/Molecular (M4RT Collection Tube) Urine culture X-ray chest 1 view CBC auto differential Comprehensive metabolic panel Troponin I Magnesium Drug Screen, Urine Ethanol Ammonia Cardiac monitoring NIBP Continuous pulse oximetry POCT Nursing Urine Macroscopic UA ECG 12 lead Saline lock IV ----- MDM RESULTS ------ Labs: Lab work was ordered and independently reviewed/interpreted by .(Details per ED course) Labs Reviewed CBC WITH AUTO DIFFERENTIAL - Abnormal; Notable for the following components: Result Value RDW 15.9 (*) All other components within normal limits BLOOD CULTURE BLOOD CULTURE SARS/FLU A+B/RSV BY NAAT/MOLECULAR (M4RT COLLECTION TUBE) URINE CULTURE AMMONIA COMPREHENSIVE METABOLIC PANEL TROPONIN I MAGNESIUM DRUG SCREEN, URINE ETHANOL POCT NURSING URINE MACROSCOPIC UA Radiology: Imaging was ordered and independently reviewed and interpreted by Dr. Gomez per below (Specific results per ED course) X-ray chest 1 view Result Date: 10/19/2023 CLINICAL INFORMATION: Dyspnea, acute chest pain, left eighth and ninth rib fractures. TECHNIQUE: Chest, 1 view. COMPARISON: Chest radiograph 06/06/2023. Chest CT from yesterday. FINDINGS Cardiomediastinal silhouette does not appear significantly changed. Left lung base opacification. Displaced left eighth and ninth rib fractures. IMPRESSION: * No significant interval change since yesterday. Left lung base opacifications most likely represent scarring and atelectasis, though early pneumonia cannot be excluded in the appropriate clinical setting. Approved by Resident Kehinde Hensley MD on 10/19/2023 7:46 PM IShivam MD have personally reviewed the image(s) and agree with and/or edited the report Finalized by Shivam Hendrix MD on 10/19/2023 7:53 PM Diagnosis: The primary encounter diagnosis was COVID-19. Diagnoses of Generalized weakness and Hypokalemia were also pertinent to this visit. Differential diagnoses have been carefully considered. Based on the patient's current clinical presentation there is low suspicion for the following conditions at this time: FLU, --------- NURSING NOTES AND VITALS REVIEWED The nursing notes within the ED encounter and vital signs as below have been reviewed. BP 99/59 Pulse 52 Temp 36.8 C (98.2 F) Resp 12 Ht 162.6 cm (5' 4.02 ) Wt 52.2 kg (115 lb 1.3 oz) SpO2 95% BMI 19.74 kg/m Medications: She had of their symptoms with the following: Medications sodium chloride 0.9 % flush 3 mL (has no administration in time range) sodium chloride 0.9 % bolus (has no administration in time range) Tomy Gomez MD Emergency Medicine Attending Physician Attestation No Additional Attestations RITA Loja 10/19/23 1838 Cheikh Jones 10/19/23 1852 Cheikh Jones 10/19/232057 RITA Loja 10/19/232142 RITA Loja 10/19/232146 Tomy Gomez MD 10/20/23 0648 Patient presents via EMS with complaints of increased confusion and increased pain. Patient with a fall and fractured ribs from a fall. documented in this encounter [facility] 10-19-2023 Emergency department Triage note Patient presents via EMS with complaints of increased confusion and increased pain. Patient with a fall and fractured ribs from a fall. [facility] 07-14-2023 Miscellaneous Notes Spoke to patients daughter she is scheduled for 08/[address] Mchugh at [facility] Left message on voicemail for patient to call and schedule EGD Left message on voicemail for patient to call and schedule Please call patient at [phone] to set up an EGD. This is her daughters cell. Patient to see if she needs to stop Plavix, thank you! documented in this encounter [facility] 07-11-2023 Note HNO ID: [id number] Author: Rosana Mchugh MD Service: ? Author Type: Physician Type: Progress Notes Filed: 07/11/2023 11:05 AM Note Text: HPI: Honey Montes, 63 year old female, presents in the office today for No chief complaint on file.. 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 - No specimens collected. Cholecystectomy, jejunostomy, mesenteric mass excision, and proximal jejunum excision: 08/31/20: 1. Gallbladder, cholecystectomy (A) - Gallbladder with patchy acute inflammation. 2. Jejunostomy, excision (B) - Segment of small bowel with acute serositis and changes consistent with prior surgical site. - Two lymph nodes, negative for malignancy (0/2). 3. Mesenteric mass, excision (C) - Well-differentiated neuroendocrine tumor, grade 2, involving a lymph node (see comment). 4. Proximal jejunum, excision (D) - Segment of small bowel with patchy acute serositis and focal foreign body giant cell reaction. - One lymph node, negative for malignancy (0/1). EGD: 06/26/20: Dr. Banks: - Normal exam. - No specimens collected. Recent Imaging: CTAP: 06/06/23: IMPRESSION: Decrease in the severity of the distention of the small bowel, with what looks like multifocal jejunal intussusception in the left mid abdomen, mild residual distention and bowel wall prominence No suspicious fluid collection, gas or fluid seen in the adjacent mesentery; no suspicious fluid or gas around the anastomosis relating to prior gastric bypass Probable reactive lymph nodes in the mesentery without splenomegaly or suspicious retroperitoneal lymphadenopathy otherwise Unusual cystic appearing area in the pancreatic head distorting the CBD. This could be related to residual fluid filled distended duodenal diverticulum near the ampulla. Attention to this on follow-up imaging surveillance to check for clearing or decompression. MRI could further evaluate this particularly if persistent or worsening symptoms or persistent abnormal appearance of follow-up surveillance imaging No colonic obstruction. The large bowel is now relatively decompressed which may account for slight prominence of the distal colonic segment Residual groundglass and interstitial opacities throughout the lower lungs without consolidation or effusions. KUB: 06/06/23: IMPRESSION: Nonobstructive bowel gas pattern. Mild vascular congestion with basilar infiltrates which may reflect pneumonia/pneumonitis or edema. CTAP: 06/05/23: IMPRESSION: Mural prominence throughout small bowel may reflect enteritis. Infectious or inflammatory etiologies are possible. No focal lesion is suspected. Suspected periampullary diverticulum at the pancreas. No definite pancreatic abnormality. MR Abdomen: 02/10/22: 1. No explanation for patient's pain. 2. Noncontributory findings described above. KUB: 02/09/22: No evidence of high-grade bowel obstruction. XR Upper GI: 01/15/22: No evidence of contrast leak or gross perforation. PET scan: 08/06/20: GA-68 DOTATATE AVID MASS LIKELY ARISING FROM THE DISTAL DUODENUM/PROXIMAL JEJUNUM COMPATIBLE WITH KNOWN NEUROENDOCRINE TUMOR. NO OTHER LESIONS WITH ABNORMAL TRACER UPTAKE. INTUSSUSCEPTION OF A SHORT SEGMENT OF JEJUNUM INTO THE STOMACH AT THE LEVEL OF THE GASTROJEJUNAL ANASTOMOSIS. CBC auto differential (06/07/2023 5:46 AM EDT) Component Value Ref Range White Blood Cells 10.1 4.0 - 11.0 X10E9/L RBC count 3.41 (L) 3.80 - 5.20 X10E12/L Hemoglobin 10.4 (L) 11.7 - 15.5 g/dL Hematocrit 31.2 (L) 35 - 47 % MCV 92 80 - 100 fL MCH 30.5 27 - 34 pg MCHC 33.3 32 - 36 g/dL RDW 17.6 (H) 11.5 - 15.0 % Platelets 224 150 - 450 X10E9/L MPV 9.2 7 - 12 fL % neutrophils 75.9 % % lymphocytes 16.3 % % monocytes 6.4 % % eosinophils 1.0 % % Basophils 0.4 % Neutrophils Absolute (A) 7.7 (H) 1.5 - 6.6 X10E9/L Lymphocytes Absolute 1.7 1.0 - 3.5 X10E9/L Monocytes Absolute 0.7 0 - 0.9 X10E9/L Eosinophils Absolute 0.1 0.0 - 0.4 X10E9/L Basophils Absolute 0.0 0.0 - 0.2 X10E9/L Comprehensive metabolic panel (06/07/2023 5:46 AM ED (more content not included)... [facility] 07-11-2023 Nurse Note What is the reason for your visit today? Abdominal pain Who is your referring physician? self Are you having poor oral intake? NO Have you had unintentional weight loss of 15 lbs/7 Kg in the last 3-6 months? NO Bowels: constipated Wound: Temperature: No Drains: No documented in this encounter [facility] 07-11-2023 History of Present illness Narrative HPI: Honey Montes, 63 year old female, presents in the office today for No chief complaint on file.. 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 - No specimens collected. Cholecystectomy, jejunostomy, mesenteric mass excision, and proximal jejunum excision: 08/31/20: 1. Gallbladder, cholecystectomy (A) - Gallbladder with patchy acute inflammation. 2. Jejunostomy, excision (B) - Segment of small bowel with acute serositis and changes consistent with prior surgical site. - Two lymph nodes, negative for malignancy (0/2). 3. Mesenteric mass, excision (C) - Well-differentiated neuroendocrine tumor, grade 2, involving a lymph node (see comment). 4. Proximal jejunum, excision (D) - Segment of small bowel with patchy acute serositis and focal foreign body giant cell reaction. - One lymph node, negative for malignancy (0/1). EGD: 06/26/20: Dr. Banks: - Normal exam. - No specimens collected. Recent Imaging: CTAP: 06/06/23: IMPRESSION: Decrease in the severity of the distention of the small bowel, with what looks like multifocal jejunal intussusception in the left mid abdomen, mild residual distention and bowel wall prominence No suspicious fluid collection, gas or fluid seen in the adjacent mesentery; no suspicious fluid or gas around the anastomosis relating to prior gastric bypass Probable reactive lymph nodes in the mesentery without splenomegaly or suspicious retroperitoneal lymphadenopathy otherwise Unusual cystic appearing area in the pancreatic head distorting the CBD. This could be related to residual fluid filled distended duodenal diverticulum near the ampulla. Attention to this on follow-up imaging surveillance to check for clearing or decompression. MRI could further evaluate this particularly if persistent or worsening symptoms or persistent abnormal appearance of follow-up surveillance imaging No colonic obstruction. The large bowel is now relatively decompressed which may account for slight prominence of the distal colonic segment Residual groundglass and interstitial opacities throughout the lower lungs without consolidation or effusions. KUB: 06/06/23: IMPRESSION: Nonobstructive bowel gas pattern. Mild vascular congestion with basilar infiltrates which may reflect pneumonia/pneumonitis or edema. CTAP: 06/05/23: IMPRESSION: Mural prominence throughout small bowel may reflect enteritis. Infectious or inflammatory etiologies are possible. No focal lesion is suspected. Suspected periampullary diverticulum at the pancreas. No definite pancreatic abnormality. MR Abdomen: 02/10/22: 1. No explanation for patient's pain. 2. Noncontributory findings described above. KUB: 02/09/22: No evidence of high-grade bowel obstruction. XR Upper GI: 01/15/22: No evidence of contrast leak or gross perforation. PET scan: 08/06/20: GA-68 DOTATATE AVID MASS LIKELY ARISING FROM THE DISTAL DUODENUM/PROXIMAL JEJUNUM COMPATIBLE WITH KNOWN NEUROENDOCRINE TUMOR. NO OTHER LESIONS WITH ABNORMAL TRACER UPTAKE. INTUSSUSCEPTION OF A SHORT SEGMENT OF JEJUNUM INTO THE STOMACH AT THE LEVEL OF THE GASTROJEJUNAL ANASTOMOSIS. CBC auto differential (06/07/2023 5:46 AM EDT) Component Value Ref Range White Blood Cells 10.1 4.0 - 11.0 X10E9/L RBC count 3.41 (L) 3.80 - 5.20 X10E12/L Hemoglobin 10.4 (L) 11.7 - 15.5 g/dL Hematocrit 31.2 (L) 35 - 47 % MCV 92 80 - 100 fL MCH 30.5 27 - 34 pg MCHC 33.3 32 - 36 g/dL RDW 17.6 (H) 11.5 - 15.0 % Platelets 224 150 - 450 X10E9/L MPV 9.2 7 - 12 fL % neutrophils 75.9 % % lymphocytes 16.3 % % monocytes 6.4 % % eosinophils 1.0 % % Basophils 0.4 % Neutrophils Absolute (A) 7.7 (H) 1.5 - 6.6 X10E9/L Lymphocytes Absolute 1.7 1.0 - 3.5 X10E9/L Monocytes Absolute 0.7 0 - 0.9 X10E9/L Eosinophils Absolute 0.1 0.0 - 0.4 X10E9/L Basophils Absolute 0.0 0.0 - 0.2 X10E9/L Comprehensive metabolic panel (06/07/2023 5:46 AM EDT) Component Value Ref Range Sodium 140 134 - 146 mmol/L Potassium, Bld 3.2 (L) 3.5 - 5.0 mmol/L Chloride 111 (H) 98 - 109 mmol/L CO2 23 22 - 32 mmol/L Anion gap 6 5 - 15 mmol/L BUN 11 5 - 27 mg/dL Creatinine 0.82 0.40 - 1.00 mg/dL Glucose 78 65 - 99 mg/dL Calcium 8.0 (L) 8.5 - 10.5 mg/dL Total Protein 5.7 (L) 6.0 - 8.0 g/dL Albumin 2.8 (L) 3.2 - 5.3 g/dL Alkaline Phosphatase 69 39 - 130 U/L AST 15 0 - 41 U/L ALT 16 0 - 31 U/L Total bilirubin 0.5 0.3 - 1.2 mg/dL eGFR (CKD-EPI)non-race dependent 81 >59 ml/min/1.73sq.m Current Medications: Current Outpatient Medications Medication Sig isosorbide mononitrate ER (IMDUR) 30 mg 24 hr tablet 1 tablet in the morning Orally Once a day furosemide (LASIX) 20 mg tablet Take 1 tablet every day by oral route as needed. fludrocortisone (FLORINEF) 0.1 mg tablet Take 1 tablet by mouth once daily. aspirin, enteric coated (ASPIRIN, ENTERIC COATED) 81 mg EC tablet Take 81 mg by mouth. nitroglycerin sublingual (NITROQUICK) 0.[address] 1 TABLET (0.4 MG) BY SUBLINGUAL ROUTE AT 1ST SIGN OF ATTACK; MAY REPEAT EVERY 5 MINUTES UP TO 3 TABS; IF NO RELIEF SEEK MEDICAL HELP potassium chloride (K-TAB) 10 mEq tablet Take 1 tablet twice a day by oral route with meals. potassium (POTASSIMIN ORAL) Take by mouth. ferrous sulfate 325 mg (65 mg iron) tablet Take 325 mg by mouth daily with breakfast. pantoprazole DR (PROTONIX) 40 mg tablet Take 40 mg by mouth once daily. midodrine (PROAMITINE) 5 mg tablet Take 5 mg by mouth three times daily. oxyCODONE-acetaminophen (PERCOCET) 7.5-325 mg tablet Take 1 tablet by mouth every 12 hours as needed for pain. DULCOLAX, BISACODYL, ORAL Take by mouth once daily. Patient takes 10 tablets daily in order to have a bowel movement. ALPRAZolam (XANAX) 1 mg tablet Take 1 mg by mouth. Blood-Glucose Meter (ONETOUCH ULTRA2 METER) monitoring kit USE UTD lancets (ONE TOUCH DELICA) 33 gauge TEST FASTING QAM morphine ER (ALLYSSA) 30 mg 24 hr capsule Take 30 mg by mouth twice daily. clopidogrel (PLAVIX) 75 mg tablet Take 75 mg by mouth once daily. gabapentin (NEURONTIN) 600 mg tablet Take 600 mg by mouth three times daily. atorvastatin (LIPITOR) 80 mg tablet Take 80 mg by mouth once daily. zolpidem (AMBIEN) 10 mg Take 10 mg by mouth at bedtime as needed. citalopram (CELEXA) 20 mg tablet Take 20 mg by mouth once daily. tamoxifen (NOLVADEX) 20 mg tablet Take 20 mg by mouth once daily. naloxegol (MOVANTIK) 25 mg tablet Take 1 tablet by mouth once daily. iv contrast (will be provided with radiology test) CT ABD/PEL -Inject, intravenously, once for 1 dose.No IV access, insert saline lock prior to the beginning of sedation, infusion, injection of imaging exam. Discontinue saline lock post exam. If Pt. has a central line or IVAD, may access for administration according to line specific nursing protocol. Once exam is complete flush line and de-access according to line specific nursing protocol in the CT contrast administration guidelines link. oxyCODONE-acetaminophen (PERCOCET) 5-325 mg tablet Take 1 tablet by mouth three times daily as needed. naloxegol (MOVANTIK) 25 mg tablet Take 1 tablet by mouth once daily. polyethylene glycol 3350 (MIRALAX, GLYCOLAX) 17 gram/dose powder Use as directed for Miralax / Gatorade Bowel Prep Kit Bisacodyl (DULCOLAX) 5 mg tab Use as directed for Miralax / Gatorade Bowel Prep Kit metformin HCl (METFORMIN ORAL) Take 500 mg by mouth twice daily. (Patient not taking: Reported on 07/11/2023) metoprolol tartrate, short acting, (LOPRESSOR) 25 mg tablet Take 25 mg by mouth twice daily. No current facility-administered medications for this visit. Past Medical History: PAST MEDICAL HISTORY Diagnosis Date Coronary artery disease Diabetes (HCC) History of transfusion HTN (hypertension) Hx of colonoscopy 2017 Hyperlipidemia Neuroendocrine carcinoma of small bowel (HCC) 2017 STEMI (ST elevation myocardial infarction) (HCC) 03/2018 s/p PTCA-SUNITHA Tobacco abuse Surgical History: PAST SURGICAL HISTORY Procedure Laterality Date COLONOSCOPY GEN ANES N/A 12/10/2020 normal colonoscopy COLONOSCOPY GEN ANES 12/24/2018 Fragments of Tubular Adenoma EGD 06/26/2020 Normal PARTIAL GASTRECTOMY 03/2020 s/p partial gastrectomy due to perforation ROTATOR CUFF REPAIR 11/2019 Family History: FAMILY HISTORY Problem Relation Age of Onset Colon Cancer Maternal Grandmother Social History: Social History Tobacco Use Smoking status: Every Day Packs/day: 1 Types: Cigarettes Smokeless tobacco: Never Vaping Use Vaping Use: Never used Substance Use Topics Alcohol use: Never Drug use: Never Allergies: ALLERGIES No Known Allergies REVIEW OF SYSTEMS Constitutional: No recent weight change, fever. Eyes and Vision: No blurred vision. Nose and Sinuses: No stuffiness. Mouth and Throat: no dry mouth. No sore throat. Cardiovascular: No edema. No chest pain. Respiratory: no dyspnea. No cough, wheezing. Gastrointestinal: See HPI Genitourinary: No urinary pain, urgency. Musculoskeletal: No muscle or joint pain , no back pain. Skin: No rashes, lumps, sores. Neurologic: No weakness. No tingling, numbness. Hematologic: No swollen glands in neck. PHYSICAL EXAMINATION: BP 98/55 Pulse 75 Temp (Src) 97.4 (Temporal) Wt 119 lb (54.0kg) SpO2 98% General: Alert, oriented, No acute distress. Skin: No rash; warm. Head: Normocephalic, atraumatic. Eyes: EOMI, PERRLA. Lymph: No cervical lymphadenopathy. Thyroid: Neck supple. No thyromegaly. Heart: S1, S2. No murmurs, gallops or rubs. Lungs: Clear to auscultation bilaterally. No wheezes or crackles. Abdomen: Soft, diffusely tender, nondistended. Bowel sounds are normal. No organomegaly. Musculoskeletal: No joint swelling or effusion. Extremities: No cyanosis, clubbing or edema. Mental: Mood appropriate. Not depressed. Neuro: Cranial nerves II through XII intact. This office note has been created using [employer], a speech recognition software program, and may contain errors including punctuation, grammar, spelling, gender, and inappropriate words or phrases that pertain to the sytem. Assessment: Abdominal distension (primary encounter diagnosis) History of partial gastrectomy Gastric ulcer with perforation, unspecified chronicity (hcc) Hx of cholecystectomy Narcotic bowel syndrome (hcc) Plan: Obtain upper endoscopy to evaluate abdominal pain and history of peptic ulcer disease Advised to check with cardiology if it is okay to stop Plavix 5 days before the procedure Advised to use Movantik 25 mg daily and advised to get squatty potty and massage the colon Patient should take Movantik and other [id number]-jossfpr medications and try to have 1-2 bowel movements every day Rosana Mchugh MD documented in this encounter [facility] 06-15-2023 Note HNO ID: [id number] Author: Jr Sinha MD Service: ? Author Type: Physician Type: Progress Notes Filed: 06/16/2023 4:30 PM Note Text: Assessment ESTABLISHED PATIENT Honey Montes is a 63 year old female with chronic abdominal pain Hx: neuroendocrine tumor resection along with jejunojejunostomy 08/31/2020 s/p Exploratory laparotomy, lysis of adhesions, resection of proximal jejunum and partial resection of D4 with resection of mesenteric mass, End-to-side duodenojejunostomy, [id number]-[id number] jejunojejunostomy, Resection of the jejunojejunostomy, Cholecystectomy. 01/13/2022 s/p marginal ulcer perforation repair Chart Review: -ER OSH for acute abdominal pain [facility] Discharge Summary 06/06/23 INTERVAL HPI: She was in the [facility] ER recently and underwent a CT scan for abdominal pain. She has had chronic abdominal pain for quite some time and probably all of the time that have known her. Her CT noted and a dissection. She was offered an operation but did not go through surgery. She presents today otherwise feeling okay but continues on with pain which is not different from her usual pain. She is having bowel movements passing gas and otherwise at baseline PAST MEDICAL HISTORY Diagnosis Date Coronary artery disease Diabetes (HCC) History of transfusion HTN (hypertension) Hx of colonoscopy 2017 Hyperlipidemia Neuroendocrine carcinoma of small bowel (HCC) 2017 STEMI (ST elevation myocardial infarction) (HCC) 03/2018 s/p PTCA-SUNITHA Tobacco abuse PAST SURGICAL HISTORY Procedure Laterality Date COLONOSCOPY GEN ANES N/A 12/10/2020 normal colonoscopy COLONOSCOPY GEN ANES 12/24/2018 Fragments of Tubular Adenoma EGD 06/26/2020 Normal PARTIAL GASTRECTOMY 03/2020 s/p partial gastrectomy due to perforation ROTATOR CUFF REPAIR 11/2019 IMAGING UPDATE: 06/06/2023 CT A/P (OSH)- Images uploaded CT A/P 06/05/2023 (OSH) PHYSICAL EXAMINATION: BP 97/64 (BP Site: Right Arm, BP Position: Sitting, BP Cuff Size: Small Adult) Pulse 75 Temp 36.5 ?C (97.7 ?F) Ht 162.6 cm (5' 4 ) Wt 52.6 kg (116 lb) SpO2 100% BMI 19.91 kg/m? General Appearance: Well appearing, alert, in no acute distress, well-hydrated, well nourished.. Skin: Skin color, texture, turgor normal, no suspicious rashes or lesions. Abdomen: Normal abdominal exam, Abdomen soft, non-tender. Bowel sounds normal. No masses, organomegaly. IMPRESSION: Jejunojejunal intussusception PLAN: We will get a small bowel follow-through to see if she has persistent exception. They intussusception on the CT from 2 weeks ago was not causing obstruction, and currently she has no symptoms of obstruction. This is likely incidental. I spent a total of 20 minutes on the date of the service which included preparing to see the patient, [id number] patient care, completing clinical documentation, obtaining and/or reviewing separately obtained history, performing a medically appropriate examination, counseling and educating the patient/family/caregiver, ordering medications, tests, or procedures, communicating with other HCPs (not separately reported), independently interpreting results (not separately reported), communicating results to the patient/family/caregiver, and care coordination (not separately reported). Jr Sinha MD [facility] 06-15-2023 Instructions Angela Mccarthy RN - 06/15/2023 2:23 PM EDT To schedule x-ray, please call for imaging appointment. You can schedule at any [facility] facility using this appointment number. Your surgeon will determine follow up and plan of care after review of imaging. If you questions, please call our office at [phone]. documented in this encounter [facility] 06-15-2023 Nurse Note What is the reason for your visit today? Follow up Who is your referring physician? Are you having poor oral intake? NO Have you had unintentional weight loss of 15 lbs/7 Kg in the last 3-6 months? NO Bowels: constipated and diarrhea Wound: Temperature: No Drains: No documented in this encounter [facility] 06-15-2023 History of Present illness Narrative Images from the original note were not included. Assessment ESTABLISHED PATIENT Honey Montes is a 63 year old female with chronic abdominal pain Hx: neuroendocrine tumor resection along with jejunojejunostomy 08/31/2020 s/p Exploratory laparotomy, lysis of adhesions, resection of proximal jejunum and partial resection of D4 with resection of mesenteric mass, End-to-side duodenojejunostomy, Esfk-vi-uowh jejunojejunostomy, Resection of the jejunojejunostomy, Cholecystectomy. 01/13/2022 s/p marginal ulcer perforation repair Chart Review: -ER OSH for acute abdominal pain [facility] Discharge Summary 06/06/23 INTERVAL HPI: She was in the [facility] ER recently and underwent a CT scan for abdominal pain. She has had chronic abdominal pain for quite some time and probably all of the time that have known her. Her CT noted and a dissection. She was offered an operation but did not go through surgery. She presents today otherwise feeling okay but continues on with pain which is not different from her usual pain. She is having bowel movements passing gas and otherwise at baseline PAST MEDICAL HISTORY Diagnosis Date Coronary artery disease Diabetes (HCC) History of transfusion HTN (hypertension) Hx of colonoscopy 2017 Hyperlipidemia Neuroendocrine carcinoma of small bowel (HCC) 2017 STEMI (ST elevation myocardial infarction) (HCC) 03/2018 s/p PTCA-SUNITHA Tobacco abuse PAST SURGICAL HISTORY Procedure Laterality Date COLONOSCOPY GEN ANES N/A 12/10/2020 normal colonoscopy COLONOSCOPY GEN ANES 12/24/2018 Fragments of Tubular Adenoma EGD 06/26/2020 Normal PARTIAL GASTRECTOMY 03/2020 s/p partial gastrectomy due to perforation ROTATOR CUFF REPAIR 11/2019 IMAGING UPDATE: 06/06/2023 CT A/P (OSH)- Images uploaded CT A/P 06/05/2023 (OSH) PHYSICAL EXAMINATION: BP 97/64 (BP Site: Right Arm, BP Position: Sitting, BP Cuff Size: Small Adult) Pulse 75 Temp 36.5 C (97.7 F) Ht 162.6 cm (5' 4 ) Wt 52.6 kg (116 lb) SpO2 100% BMI 19.91 kg/m General Appearance: Well appearing, alert, in no acute distress, well-hydrated, well nourished.. Skin: Skin color, texture, turgor normal, no suspicious rashes or lesions. Abdomen: Normal abdominal exam, Abdomen soft, non-tender. Bowel sounds normal. No masses, organomegaly. IMPRESSION: Jejunojejunal intussusception PLAN: We will get a small bowel follow-through to see if she has persistent exception. They intussusception on the CT from 2 weeks ago was not causing obstruction, and currently she has no symptoms of obstruction. This is likely incidental. I spent a total of 20 minutes on the date of the service which included preparing to see the patient, [id number] patient care, completing clinical documentation, obtaining and/or reviewing separately obtained history, performing a medically appropriate examination, counseling and educating the patient/family/caregiver, ordering medications, tests, or procedures, communicating with other HCPs (not separately reported), independently interpreting results (not separately reported), communicating results to the patient/family/caregiver, and care coordination (not separately reported). Jr Sinha MD documented in this encounter [facility] 12-05-2022 Miscellaneous Notes Spoke with patient who states that her coronary clinical specialist told her to reschedule this appointment. Patient has number to cancel/reschedule appointment. documented in this encounter [facility] 06-15-2022 History of Present illness Narrative Comprehensive Nutrition Assessment Type and Reason for Visit: Initial, Consult (Unplanned Weight Loss) Nutrition Recommendations/Plan: Continue current diet. Will provide Ensure Enlive ONS x 2 per day. Encourage/monitor PO intakes as tolerated. Will monitor labs, weights, and plan of care. Malnutrition Assessment: Malnutrition Status: Moderate malnutrition (06/15/22 1230) Context: Acute Illness on Chronic Findings of the 6 clinical characteristics of malnutrition: Energy Intake: 75% or less of estimated energy requirements for 7 or more days Weight Loss: Unable to assess - H/o weight loss noted per chart review but no recent weights available. Body Fat Loss: Mild body fat loss Orbital Muscle Mass Loss: Mild muscle mass loss Clavicles (pectoralis & deltoids) Fluid Accumulation: No significant fluid accumulation Colorist Photography Strength: Not Performed Nutrition Assessment: Consulted for unplanned weight loss. Pt admitted with c/o chest and abdominal pain. PMH: CAD, CHF, DM. Pt reports h/o chronic abdominal pain and variable PO intakes. S/p cardiac cath yesterday. H/o weight loss noted per chart review but no recent weights available. Noted plans for discharge today. Labs reviewed. Meds include: Colace. Nutrition Related Findings: Labs/Meds reviewed. Wound Type: None Current Nutrition Intake & Therapies: Average Meal Intake: 1-25%, 26-50%, 51-75% Average Supplements Intake: None Ordered ADULT DIET; Regular Anthropometric Measures: Height: 5' 5 (165.1 cm) [place] Body Weight (IBW): 125 lbs (57 kg) Admission Body Weight: 105 lb 13.1 oz (48 kg) Current Body Weight: 105 lb 6.1 oz (47.8 kg), 84.3 % IBW. Weight Source: Bed Scale Current BMI (kg/m2): 17.5 Usual Body Weight: 123 lb 3.8 oz (55.9 kg) (10/01/18 bed scale per chart review) % Weight Change (Calculated): -14.5 BMI Categories: Underweight (BMI less than 18.5) Estimated Daily Nutrient Needs: Energy Requirements Based On: Kcal/kg Weight Used for Energy Requirements: Admission Energy (kcal/day): 2263-9657 kcals/day Weight Used for Protein Requirements: Admission Protein (g/day): 70 gm pro/day Method Used for Fluid Requirements: ml/Kg Fluid (ml/day): 30 mL/kg = 1400 mL/day or per MD Nutrition Diagnosis: Inadequate oral intake related to (current condition; abdominal pain) as evidenced by (variable PO intakes; h/o weight loss) Nutrition Interventions: Food and/or Nutrient Delivery: Continue Current Diet, Start Oral Nutrition Supplement Nutrition Education/Counseling: No recommendation at this time Coordination of Nutrition Care: Continue to monitor while inpatient Goals: Previous Goal Met: (Goal Set) Goals: PO intake 50% or greater, prior to discharge Nutrition Monitoring and Evaluation: Behavioral-Environmental Outcomes: None Identified Food/Nutrient Intake Outcomes: Food and Nutrient Intake, Supplement Intake Physical Signs/Symptoms Outcomes: Biochemical Data, GI Status, Fluid Status or Edema, Nutrition Focused Physical Findings, Skin, Weight Discharge Planning: Too soon to determine Milvai Frankel RD, [place] Contact: [phone] Physician Progress Note PATIENT: HONEY MONTES CSN #: [id number] : 1960 ADMIT DATE: 06/12/2022 11:07 PM DISCH DATE: RESPONDING PROVIDER #: SKIP ARMAS MD QUERY TEXT: Pt admitted with atypical chest pain with angina/CAD. history of coronary artery stent. Per cardiac cath report on 06/14 noted in stent stenosis of mid RCA with successful POBA of mid RCA . If possible please clarify one of the following: The medical record reflects the following: Risk Factors: CAD, history of [place] Clinical Indicators: admitted with atypical chest pain with angina/CAD. history of coronary artery stent. Per cardiac cath report on 06/14 noted in stent stenosis of mid RCA with successful POBA of mid RCA Treatment: Balloon angioplasty, cardiac cath, monitoring Thank You Camacho FERNANDEZ BSN CCDS Email [email or web address] office hours M-F 6am to 2:30pm Options provided: -- In stent restenosis as a likely complication of stent -- In stent restenosis as a likely progression of CAD -- Other - I will add my own diagnosis -- Disagree - Not applicable / Not valid -- Disagree - Clinically unable to determine / Unknown -- Refer to Clinical Documentation Reviewer PROVIDER RESPONSE TEXT: This patients in stent restenosis is a likely progression of CAD Query created by: Windy Rose on 06/15/2022 10:36 AM Electronically signed by: SKIP ARMAS MD 06/15/2022 12:19 PM Images from the original note were not included. [facility] Office: [phone] Anival Baeza DO, Kelvin Khan DO, Jn Frederick DO, Kamlesh Oconnor DO, Apolinar Mirza MD, Nicky Carr MD, Laurie Erwin MD, Pascale Quinn MD, Jonathan Edmond MD, Darek Heaton MD, Jaleel Raya DO, Renee Upton MD, Praneeth Mata DO, Irina Mejia MD, Earl Ellis MD, Margarito Baeza DO, Kim Wooten MD, Owen Lin MD, Nadege Qaun MD, Dayna Trinh MD, Clarissa Parra MD, Shantelle Govea MD, Adrian Jeffries DO, Ophelia Cabrera MD, Deejay Pierre MD, Gloria Olivas, PRECISION AGRICULTURE TECHNICIAN, Lynette Kaiser, PRECISION AGRICULTURE TECHNICIAN, Godwin Johnson, PRECISION AGRICULTURE TECHNICIAN, Víctor Hargrove, PRECISION AGRICULTURE TECHNICIAN, Loki Wu PA-C, Shey Wallace, MAXIMILIANO, Re Ryan, PRECISION AGRICULTURE TECHNICIAN, Antionette Giron, PRECISION AGRICULTURE TECHNICIAN, Leticia Burgos, PRECISION AGRICULTURE TECHNICIAN, Tootie Nam, PRECISION AGRICULTURE TECHNICIAN, Domitila Umana, PRECISION AGRICULTURE TECHNICIAN, Meme Mendoza, LAWN SERVICE SUPERVISOR, Iris Zhang, MAXIMILIANO, Cleo Alonso, PRECISION AGRICULTURE TECHNICIAN, Velma Hammer, PRECISION AGRICULTURE TECHNICIAN, Jimena Bryant, PRECISION AGRICULTURE TECHNICIAN [facility] IN-PATIENT SERVICE [facility] Progress Note 06/15/2022 11:06 AM Name: Honey Montes Acct: [id number] Room: IP Day: 3 Admit Date: 06/12/2022 11:07 PM PCP: Corina Cook Code Status: Full Code Subjective: C/C: Chest pain Interval History Status: improved Pt seen and examined at bedside. She feels much better today and is no longer having any pain No fevers, chills. Brief History: This is a 62-year-old female with a history of coronary disease s/p WA with drug-eluting stents, recent STEMI April 02 with additional 2 stent placement, hypertension, dyslipidemia, diabetes, tobacco abuse who presents to the hospital complaints of chest pain. Pt was admitted and seen by cardiology and had cardiac catheterization 06/14 which showed focal instent restenosis of mid RCA with normal LV systolic function and EF 55%. Pt had successful POBA of mid RCA InStent restenosis with good results. Pt was started on Norvasc 5 mg daily. Currently, patient is stable for discharge. She will need to follow up with cardiology within two weeks of discharge for reevaluation and PCP within one week of discharge for reevaluation. Review of Systems: Constitutional: negative for chills, fevers, sweats Respiratory: negative for cough, dyspnea on exertion, shortness of breath, wheezing Cardiovascular: no chest pain, no chest pressure/discomfort, no lower extremity edema, palpitations Gastrointestinal: negative for abdominal pain, constipation, diarrhea, nausea, vomiting Neurological: negative for dizziness, headache Medications: Allergies: No Known Allergies Current Meds: Scheduled Meds: ferrous sulfate 325 mg Oral Daily with breakfast sodium chloride flush 5-40 mL IntraVENous 2 times per day amLODIPine 5 mg Oral Nightly midodrine 10 mg Oral TID WC ALPRAZolam 1 mg Oral TID citalopram 20 mg Oral Nightly clopidogrel 75 mg Oral Daily docusate sodium 100 mg Oral BID famotidine 20 mg Oral BID gabapentin 300 mg Oral BID gabapentin 600 mg Oral Nightly isosorbide mononitrate 30 mg Oral Daily magnesium oxide 400 mg Oral Daily metoprolol tartrate 25 mg Oral BID morphine 30 mg Oral BID pantoprazole 40 mg Oral BID AC potassium chloride 10 mEq Oral Daily tamoxifen 20 mg Oral Daily sodium chloride flush 5-40 mL IntraVENous 2 times per day atorvastatin 80 mg Oral Nightly enoxaparin 40 mg SubCUTAneous Daily insulin lispro 0-4 Units SubCUTAneous TID WC insulin lispro 0-4 Units SubCUTAneous Nightly aspirin 81 mg Oral Daily Continuous Infusions: sodium chloride dextrose sodium chloride PRN Meds: sodium chloride flush, sodium chloride, acetaminophen, meclizine, zolpidem, oxyCODONE-acetaminophen AND oxyCODONE, glucose, dextrose bolus OR dextrose bolus, glucagon (rDNA), dextrose, sodium chloride flush, sodium chloride, potassium chloride OR potassium alternative oral replacement OR potassium chloride, magnesium sulfate, ondansetron OR ondansetron, acetaminophen OR acetaminophen, magnesium hydroxide, nitroGLYCERIN, perflutren lipid microspheres Data: Past Medical History: has a past medical history of CAD (coronary artery disease), CHF (congestive heart failure) (HCC), Cut of foot, Diabetes mellitus (HCC), H/O heart artery stent, History of blood transfusion, Hyperlipidemia, Hypotension, Neuropathy, 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), and STEMI (ST elevation myocardial infarction) ([facility]). Social History: reports that she has been smoking. She has a 30.00 pack-year smoking history. She has never used smokeless tobacco. She reports current alcohol use. She reports that she does not use drugs. Family History: Family History Problem Relation Age of Onset Cancer Mother Cancer Father Vitals: BP 128/78 Pulse 75 Temp 98.3 F (36.8 C) (Oral) Resp 15 Ht 5' 5 (1.651 m) Wt 105 lb 6.1 oz (47.8 kg) SpO2 95% BMI 17.54 kg/m Temp (24hrs), Av.1 F (36.7 C), Min:98 F (36.7 C), Max:98.3 F (36.8 C) Recent Labs 06/13/22201306/14/22 0713 06/14/22 1810 06/14/222023 POCGLU 99 104 62* 81 I/O (24Hr): Intake/Output Summary (Last 24 hours) at 06/15/2022 1106 Last data filed at 06/14/2022 2330 Gross per 24 hour Intake 410 ml Output -- Net 410 ml Labs: Hematology: Recent Labs 06/14/22 1010 06/14/22 1236 06/15/22 0739 WBC 9.4 8.8 13.0* RBC 3.95 3.80* 4.43 HGB 11.3* 11.2* 12.7 HCT 36.1* 34.5* 39.0 MCV 91.4 90.8 88.0 MCH 28.6 29.5 28.7 MCHC 31.3 32.5 32.6 RDW 16.9* 16.6* 16.3* PLT 281 257 276 MPV 10.3 10.0 10.0 Chemistry: Recent Labs 06/13/22 0013 06/13/22 0232 06/13/22 0651 06/14/22 1043 NA -- -- 143 141 K -- -- 3.4* 4.0 CL -- -- 107 108* CO2 -- -- 25 22 GLUCOSE -- -- 80 97 BUN -- -- 6* 9 CREATININE -- -- 0.39* 0.41* MG -- -- 2.0 -- ANIONGAP -- -- 11 11 LABGLOM -- -- >60 >60 GFRAA -- -- >60 >60 CALCIUM -- -- 8.8 8.4* PROBNP -- -- 371* -- TROPHS 11 11 -- -- Recent Labs 06/13/22 0651 06/13/22 1114 06/13/22 1611 06/13/22201306/14/22 0713 06/14/22 1810 06/14/222023 PROT 6.1* -- -- -- -- -- -- LABALBU 3.4* -- -- -- -- -- -- AST 13 -- -- -- -- -- -- ALT 10 -- -- -- -- -- -- ALKPHOS 78 -- -- -- -- -- -- BILITOT 0.20* -- -- -- -- -- -- CHOL 114 -- -- -- -- -- -- HDL 31* -- -- -- -- -- -- LDLCHOLESTEROL 49 -- -- -- -- -- -- CHOLHDLRATIO 3.7 -- -- -- -- -- -- TRIG 169* -- -- -- -- -- -- POCGLU -- 89 68 99 104 62* 81 ABG: Lab Results Component Value Date/Time FIO2 INFORMATION NOT PROVIDED 09/30/2018 04:04 AM No results found for: SPECIAL No results found for: CULTURE Radiology: No results found. Physical Examination: General appearance: alert, cooperative and no distress Mental Status: oriented to person, place and time and normal affect Lungs: clear to auscultation bilaterally, normal effort Heart: regular rate and rhythm, no murmur Abdomen: soft, nontender, nondistended, normal bowel sounds, no masses, hepatomegaly, splenomegaly Extremities: no edema, redness, tenderness in the calves Skin: no gross lesions, rashes, induration Assessment: Hospital Problems Last Modified POA * (Principal) Chest pain 06/12/2022 Yes Type 2 diabetes mellitus, without long-term current use of insulin (HCC) 06/13/2022 Yes History of GI bleed 06/13/2022 Yes History of breast cancer 06/13/2022 Yes HTN (hypertension) 06/13/2022 Yes Dyslipidemia 06/13/2022 Yes Coronary artery disease involving [place] coronary artery with unstable angina pectoris (HCC) 06/13/2022 Yes Chronic pain syndrome 06/13/2022 Yes Constipation 06/13/2022 Yes Chronic diastolic (congestive) heart failure (HCC) 06/13/2022 Yes Thrombocytosis 06/14/2022 Yes 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 Dispo: dc today Praneeth Mata DO 06/15/2022 11:06 AM Images from the original note were not included. [employer] Desktop Support Manager Progress Note Date: 06/15/2022 Patient name: Honey Montes Date of admission: 06/12/2022 11:07 PM Date of : 1960 PCP: Corina Cook Reason for Admission: Chest pain [R07.9] Subjective: Clinical Changes /Abnormalities:Patient seen and examined. Ongoing chest pain since end of FEBRUARY stated , Denies shortness of breath. Tele/vitals/labs reviewed . Discussed case with RN Medications: Scheduled Meds: ferrous sulfate 325 mg Oral Daily with breakfast sodium chloride flush 5-40 mL IntraVENous 2 times per day amLODIPine 5 mg Oral Nightly midodrine 10 mg Oral TID WC ALPRAZolam 1 mg Oral TID citalopram 20 mg Oral Nightly clopidogrel 75 mg Oral Daily docusate sodium 100 mg Oral BID famotidine 20 mg Oral BID gabapentin 300 mg Oral BID gabapentin 600 mg Oral Nightly isosorbide mononitrate 30 mg Oral Daily magnesium oxide 400 mg Oral Daily metoprolol tartrate 25 mg Oral BID morphine 30 mg Oral BID pantoprazole 40 mg Oral BID AC potassium chloride 10 mEq Oral Daily tamoxifen 20 mg Oral Daily sodium chloride flush 5-40 mL IntraVENous 2 times per day atorvastatin 80 mg Oral Nightly enoxaparin 40 mg SubCUTAneous Daily insulin lispro 0-4 Units SubCUTAneous TID WC insulin lispro 0-4 Units SubCUTAneous Nightly aspirin 81 mg Oral Daily Continuous Infusions: sodium chloride dextrose sodium chloride CBC: Recent Labs 06/14/22 1010 06/14/22 1236 06/15/22 0739 WBC 9.4 8.8 13.0* HGB 11.3* 11.2* 12.7 PLT 281 257 276 BMP: Recent Labs 06/13/22 0651 06/14/22 1043 NA 143 141 K 3.4* 4.0 CL 107 108* CO2 25 22 BUN 6* 9 CREATININE 0.39* 0.41* GLUCOSE 80 97 Hepatic: Recent Labs 06/13/22 0651 AST 13 ALT 10 BILITOT 0.20* ALKPHOS 78 Troponin: Recent Labs 06/13/22 0013 06/13/22 0232 TROPHS 11 11 BNP: No results for input(s): BNP in the last 72 hours. Lipids: Recent Labs 06/13/22 0651 CHOL 114 HDL 31* INR: No results for input(s): INR in the last 72 hours. EKG: Date: 06/13/22 Reading: No acute ischemia Last ECHO on 01/14/2022 1. Left ventricle: The cavity size is normal. Systolic function is normal. The estimated ejection fraction is 65-70%. 2. Mitral valve: There is mild regurgitation. 03/27/18 Echocardiogram: Normal left ventricle size with preserved systolic function; Estimated left ventricular ejection fraction 55% Mild basal inferior wall hypokinesis. Left atrium is at upper limits of normal No significant valve disease Coronary Angiography: Left main: NL LAD: 20-30% stenosis D1 has proximal 90% and mid 70% stenosis LCX: Proximal to mid 70% stenosis RCA: Mid and distal 90% stenosis both lesions reduced to 0% with PTCA/SUNITHA X 2 with return of DIEGO III flow. The LV gram was performed in the ZAVALA 30 position. LVEF: 55%. LV Wall Motion: normal CARDIAC CATH 06/14/22 Findings: LMCA: has distal 20% stenosis. LAD: has patent mid previously placed stent. The distal LAD has diffuse narrowing. The D1 has patent previously placed stent in the proximal segment. LCx: has patent previously placed stent in the proximal segment extending into OM1. RCA: has patent previously placed stent in the mid segment with focal 70% instent restenosis. Lesion on Mid RCA: Mid subsection.70% stenosis 10 mm length reduced to 0%. Pre procedure DIEGO III flow was noted. Post Procedure DIEGO III flow was present. Good runoff was present. The lesion was diagnosed as Moderate Risk (B). The lesion was discrete and eccentric.The lesion showed mild angulation and mild tortuosity.Lesion plaque is ruptured. Comments:instent restenosis. Devices used - Vigilos Flex 180 cm. Number of passes: 1. - NC Euphora Balloon 3.0mm x 12mm. 3 inflation(s) to a max pressure of: 15 gilma. Coronary Tree Dominance: Right LV Analysis LV function assessed as:Normal. Ejection Fraction + ---+---+ !Method !EF%! + ---+---+ !LV gram !55 ! + ---+---+ Procedure Summary Patent LAD, D1 and LCX/OM1 stent. Focal Instent restenosis of mid RCA Normal LV systolic function; LVEF 55%. Successful POBA of mid RCA instent restenosis with excellent results. Recommendations Medical therapy as needed. Risk factor modification. Add norvasc 5m gpo qhs. Counseled to quit smoking. Objective: Vitals: BP 128/78 Pulse 75 Temp 98.3 F (36.8 C) (Oral) Resp 15 Ht 5' 5 (1.651 m) Wt 105 lb 6.1 oz (47.8 kg) SpO2 95% BMI 17.54 kg/m General appearance: alert and cooperative with exam HEENT: Head: Normocephalic, no lesions, without obvious abnormality. Neck:no JVD, trachea midline, no adenopathy Lungs: Clear to auscultation Heart: Regular rate and rhythm, s1/s2 auscultated, no murmurs Abdomen: soft, non-tender, bowel sounds active Extremities: no edema Neurologic: not done Assessment / Acute Cardiac Problems: Chest pain with typical and atypical features, Trop is negative 08/26, EKG Sinus bradycardia with left axis deviation. Hx of coronary artery disease SUNITHA LCX/OM1 in [address] Guadalupe and one in [place] this May for 2 arteries and the third one to be done here as staged PCI, Hypertriglyceridemia Diabetes. 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 guadalupe Hypokalemia Hyponatremia Alcohol intoxication (HCC) Subarachnoid hemorrhage (HCC) Lower abdominal pain Smoking Neuropathy History of heart artery stent Easy fatigability Chest pain History of GI bleed History of breast cancer HTN (hypertension) Dyslipidemia Unstable angina (HCC) Coronary artery disease involving lone pine coronary artery with unstable angina pectoris (HCC) Chronic pain syndrome Constipation History of subarachnoid hemorrhage Chronic diastolic (congestive) heart failure (HCC) Plan of Treatment: CAD s/p successful POBA or mid RCA. Continue Plavix, ASA, CCB, statin, imdur, BB and nitro Keep K 4, Mg>2 Discussed smoking cessation No further workup from cardiology standpoint. Ok with d/c. Will follow up in 2 weeks [employer] [phone] Images from the original note were not included. [employer] Progress Note Date: 06/14/2022 Patient name: Honey Montes Date of admission: 06/12/2022 11:07 PM Date of : 1960 PCP: Corina Cook Reason for Admission: Chest pain [R07.9] Subjective: Clinical Changes /Abnormalities:Patient seen and examined. Ongoing chest pain since end of FEBRUARY stated , Denies shortness of breath. Tele/vitals/labs reviewed . Discussed case with RN. Eddie gross on monitor Review of Systems Medications: Scheduled Meds: midodrine 10 mg Oral TID WC ALPRAZolam 1 mg Oral TID citalopram 20 mg Oral Nightly clopidogrel 75 mg Oral Daily docusate sodium 100 mg Oral BID famotidine 20 mg Oral BID gabapentin 300 mg Oral BID gabapentin 600 mg Oral Nightly isosorbide mononitrate 30 mg Oral Daily magnesium oxide 400 mg Oral Daily metoprolol tartrate 25 mg Oral BID morphine 30 mg Oral BID pantoprazole 40 mg Oral BID AC potassium chloride 10 mEq Oral Daily tamoxifen 20 mg Oral Daily sodium chloride flush 5-40 mL IntraVENous 2 times per day atorvastatin 80 mg Oral Nightly enoxaparin 40 mg SubCUTAneous Daily insulin lispro 0-4 Units SubCUTAneous TID WC insulin lispro 0-4 Units SubCUTAneous Nightly aspirin 81 mg Oral Daily Continuous Infusions: dextrose sodium chloride sodium chloride 75 mL/hr at 06/14/22 0431 CBC: Recent Labs 06/13/22 0651 06/14/22 1010 WBC 9.6 9.4 HGB 11.0* 11.3* PLT 743* 281 BMP: Recent Labs 06/13/22 0651 NA 143 K 3.4* CL 107 CO2 25 BUN 6* CREATININE 0.39* GLUCOSE 80 Hepatic: Recent Labs 06/13/22 0651 AST 13 ALT 10 BILITOT 0.20* ALKPHOS 78 Troponin: Recent Labs 06/13/22 0013 06/13/22 0232 TROPHS 11 11 BNP: No results for input(s): BNP in the last 72 hours. Lipids: Recent Labs 06/13/22 0651 CHOL 114 HDL 31* INR: No results for input(s): INR in the last 72 hours. EKG: Date: 06/13/22 Reading: No acute ischemia Last ECHO on 01/14/2022 1. Left ventricle: The cavity size is normal. Systolic function is normal. The estimated ejection fraction is 65-70%. 2. Mitral valve: There is mild regurgitation. 03/27/18 Echocardiogram: Normal left ventricle size with preserved systolic function; Estimated left ventricular ejection fraction 55% Mild basal inferior wall hypokinesis. Left atrium is at upper limits of normal No significant valve disease Coronary Angiography: Left main: NL LAD: 20-30% stenosis D1 has proximal 90% and mid 70% stenosis LCX: Proximal to mid 70% stenosis RCA: Mid and distal 90% stenosis both lesions reduced to 0% with PTCA/SUNITHA X 2 with return of DIEGO III flow. The LV gram was performed in the ZAVALA 30 position. LVEF: 55%. LV Wall Motion: normal Objective: Vitals: BP (!) 119/59 Pulse 66 Temp 98.2 F (36.8 C) (Oral) Resp 13 Ht 5' 5 (1.651 m) Wt 109 lb 5.6 oz (49.6 kg) SpO2 96% BMI 18.20 kg/m General appearance: alert and cooperative with exam HEENT: Head: Normocephalic, no lesions, without obvious abnormality. Neck:no JVD, trachea midline, no adenopathy Lungs: Clear to auscultation Heart: Regular rate and rhythm, s1/s2 auscultated, no murmurs Abdomen: soft, non-tender, bowel sounds active Extremities: no edema Neurologic: not done Assessment / Acute Cardiac Problems: Chest pain with typical and atypical features, Trop is negative 08/26, EKG Sinus bradycardia with left axis deviation. Hx of coronary artery disease SUNITHA LCX/OM1 in [address] Guadalupe and one in [place] this May for 2 arteries and the third one to be done here as staged PCI, Hypertriglyceridemia Diabetes. 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 guadalupe Hypokalemia Hyponatremia Alcohol intoxication (HCC) Subarachnoid hemorrhage (HCC) Lower abdominal pain Smoking Neuropathy History of heart artery stent Easy fatigability Chest pain History of GI bleed History of breast cancer HTN (hypertension) Dyslipidemia Unstable angina (HCC) Coronary artery disease involving lone pine coronary artery with unstable angina pectoris (HCC) Chronic pain syndrome Constipation History of subarachnoid hemorrhage Chronic diastolic (congestive) heart failure (HCC) Plan of Treatment: Plan for cardiac cath per Dr. Echevarria recommendation pending Hem/oc evaluation for thrombocytosis Continue -statin, imdur, BB and nitro Keep K 4, Mg>2 [employer] [place] [facility]. [phone] Images from the original note were not included. [facility] Office: [phone] Anival Baeza DO, Kelvin Khan DO, Jn Frederick DO, Kamlesh Oconnor DO, Apolinar Mirza MD, Nicky Carr MD, Laurie Erwin MD, Pascale Quinn MD, Jonathan Edmond MD, Darek Heaton MD, Jaleel Raya DO, Renee Upton MD, Praneeth Mata DO, Irina Mejia MD, Earl Ellis MD, Margarito Baeza DO, Kim Wooten MD, Owen Lin MD, Nadege Quan MD, Dayna Trinh MD, Clarissa Parra MD, Shantelle Govea MD, Adrian Jeffries DO, Ophelia Cabrera MD, Deejay Pierre MD, Gloria Olivas CNP, Lynette Kaiser CNP, Godwin Johnson CNP, Víctor Hargrove CNP, Loki Wu PA-C, Shey Wallace DNP, Re Ryan CNP, Antionette Giron CNP, Leticia Burgos CNP, Tootie Nam CNP, Domitila Umana CNP, Meme Mendoza LAWN SERVICE SUPERVISOR, Iris Zhang, DNP, Cleo Alonso, PRECISION AGRICULTURE TECHNICIAN, Velma Hammer, PRECISION AGRICULTURE TECHNICIAN, Jimena Bryant, PRECISION AGRICULTURE TECHNICIAN [facility] IN-PATIENT SERVICE [facility] Progress Note 06/14/2022 10:18 AM Name: Honey Montes Acct: [id number] Room: IP Day: 2 Admit Date: 06/12/2022 11:07 PM PCP: Corina Cook Code Status: Full Code Subjective: C/C: Chest pain Interval History Status: First time seeing patient. Pt seen and examined at bedside. She is having chest pain still. No fevers, chills. Repeat plt count Is normal x2 Brief History: This is a 62-year-old female with a history of coronary disease s/p WA with drug-eluting stents, recent STEMI April 02 with additional 2 stent placement, hypertension, dyslipidemia, diabetes, tobacco abuse who presents to the hospital complaints of chest pain. Pt was admitted and seen by cardiology and had cardiac catheterization 06/14 which showed Review of Systems: Constitutional: negative for chills, fevers, sweats Respiratory: negative for cough, dyspnea on exertion, shortness of breath, wheezing Cardiovascular: +chest pain, +chest pressure/discomfort, no lower extremity edema, palpitations Gastrointestinal: negative for abdominal pain, constipation, diarrhea, nausea, vomiting Neurological: negative for dizziness, headache Medications: Allergies: No Known Allergies Current Meds: Scheduled Meds: midodrine 10 mg Oral TID WC ALPRAZolam 1 mg Oral TID citalopram 20 mg Oral Nightly clopidogrel 75 mg Oral Daily docusate sodium 100 mg Oral BID famotidine 20 mg Oral BID gabapentin 300 mg Oral BID gabapentin 600 mg Oral Nightly isosorbide mononitrate 30 mg Oral Daily magnesium oxide 400 mg Oral Daily metoprolol tartrate 25 mg Oral BID morphine 30 mg Oral BID pantoprazole 40 mg Oral BID AC potassium chloride 10 mEq Oral Daily tamoxifen 20 mg Oral Daily sodium chloride flush 5-40 mL IntraVENous 2 times per day atorvastatin 80 mg Oral Nightly enoxaparin 40 mg SubCUTAneous Daily insulin lispro 0-4 Units SubCUTAneous TID WC insulin lispro 0-4 Units SubCUTAneous Nightly aspirin 81 mg Oral Daily Continuous Infusions: dextrose sodium chloride sodium chloride 75 mL/hr at 08/30/22 0431 PRN Meds: meclizine, zolpidem, oxyCODONE-acetaminophen AND oxyCODONE, glucose, dextrose bolus OR dextrose bolus, glucagon (rDNA), dextrose, sodium chloride flush, sodium chloride, potassium chloride OR potassium alternative oral replacement OR potassium chloride, magnesium sulfate, ondansetron OR ondansetron, acetaminophen OR acetaminophen, magnesium hydroxide, nitroGLYCERIN, perflutren lipid microspheres Data: Past Medical History: has a past medical history of CAD (coronary artery disease), CHF (congestive heart failure) (HCC), Cut of foot, Diabetes mellitus (HCC), H/O heart artery stent, History of blood transfusion, Hyperlipidemia, Hypotension, Neuropathy, and STEMI (ST elevation myocardial infarction) ([facility]). Social History: reports that she has been smoking. She has a 30.00 pack-year smoking history. She has never used smokeless tobacco. She reports current alcohol use. She reports that she does not use drugs. Family History: Family History Problem Relation Age of Onset Cancer Mother Cancer Father Vitals: BP (!) 119/59 Pulse 66 Temp 98.2 F (36.8 C) (Oral) Resp 13 Ht 5' 5 (1.651 m) Wt 109 lb 5.6 oz (49.6 kg) SpO2 96% BMI 18.20 kg/m Temp (24hrs), Av F (36.7 C), Min:97.5 F (36.4 C), Max:98.2 F (36.8 C) Recent Labs 06/13/22 1114 06/13/22 1611 06/13/22201306/14/22 0713 POCGLU 89 68 99 104 I/O (24Hr): No intake or output data in the 24 hours ending 06/14/22 1018 Labs: Hematology: Recent Labs 06/13/22 0651 WBC 9.6 RBC 3.54* HGB 11.0* HCT 31.5* MCV 89.0 MCH 31.1 MCHC 34.9* RDW 18.3* PLT 743* MPV 11.2 Chemistry: Recent Labs 06/13/22 0013 06/13/22 0232 06/13/22 0651 NA -- -- 143 K -- -- 3.4* CL -- -- 107 CO2 -- -- 25 GLUCOSE -- -- 80 BUN -- -- 6* CREATININE -- -- 0.39* MG -- -- 2.0 ANIONGAP -- -- 11 LABGLOM -- -- >60 GFRAA -- -- >60 CALCIUM -- -- 8.8 PROBNP -- -- 371* TROPHS 11 11 -- Recent Labs 06/12/22 2355 06/13/22 0641 06/13/22 0651 06/13/22 1114 06/13/22 1611 06/13/22201306/14/22 0713 PROT -- -- 6.1* -- -- -- -- LABALBU -- -- 3.4* -- -- -- -- AST -- -- 13 -- -- -- -- ALT -- -- 10 -- -- -- -- ALKPHOS -- -- 78 -- -- -- -- BILITOT -- -- 0.20* -- -- -- -- CHOL -- -- 114 -- -- -- -- HDL -- -- 31* -- -- -- -- LDLCHOLESTEROL -- -- 49 -- -- -- -- CHOLHDLRATIO -- -- 3.7 -- -- -- -- TRIG -- -- 169* -- -- -- -- POCGLU 77 73 -- 89 68 99 104 ABG: Lab Results Component Value Date/Time FIO2 INFORMATION NOT PROVIDED 09/30/2018 04:04 AM No results found for: SPECIAL No results found for: CULTURE Radiology: No results found. Physical Examination: General appearance: alert, cooperative and no distress Mental Status: oriented to person, place and time and normal affect Lungs: clear to auscultation bilaterally, normal effort Heart: regular rate and rhythm, no murmur Abdomen: soft, nontender, nondistended, normal bowel sounds, no masses, hepatomegaly, splenomegaly Extremities: no edema, redness, tenderness in the calves Skin: no gross lesions, rashes, induration Assessment: Hospital Problems Last Modified POA * (Principal) Chest pain 06/12/2022 Yes Type 2 diabetes mellitus, without long-term current use of insulin (HCC) 06/13/2022 Yes History of GI bleed 06/13/2022 Yes History of breast cancer 06/13/2022 Yes HTN (hypertension) 06/13/2022 Yes Dyslipidemia 06/13/2022 Yes Coronary artery disease involving lone pine coronary artery with unstable angina pectoris (HCC) 06/13/2022 Yes Chronic pain syndrome 06/13/2022 Yes Constipation 06/13/2022 Yes Chronic diastolic (congestive) heart failure (HCC) 06/13/2022 Yes Smoking 06/13/2022 Yes History of subarachnoid hemorrhage 06/13/2022 Yes Overview Signed 06/13/2022 1:52 AM by Kim Wooten MD Traumatic SAH '18 Plan: Atypical chest pain suspect unstable angina . Patient high risk for ACS with history of recurrent MIs, and recent STEMI in March with ongoing tobacco abuse. Plan for cardiac catheterization 06/14. Discussed with Cardiology. Continue ASA/Plavix/Lipitor/metoprolol. Add ROHIT if BP stable. Drug induced constipation: Start bowel regimen. Chronic pain: continue home oral morphine. Iron def anemia: start iron supplementation Reactive thrombocytosis: repeat Plt normal. This was likely reactive. Iron studies ordered. Discussed with . At this point do not think Oncology consult needed and patient can continue with cardiac catheterization. Protein calorie malnutrition: consult dietary BMI 18 Tobacco abuse: discussed with patient encourage cessation with history of recurrent WA History of peptic ulcer disease/recurrent GI bleed status post recent small bowel resection with marginal ulcer perforation in December. Continue PPI History of neuroendocrine tumor status post prior resection 2017, recurrence with resection in 2019 History of breast cancer status postmastectomy on tamoxifen. Type 2 diabetes with diabetic neuropathy hold metformin anticipating cath later today Chronic abdominal pain/chronic pain syndrome, continue home opiates Chronic constipation continue bowel regimen Hypomagnesia replace Labs, imaging, ECG reviewed Dispo: plan for d/c in 24 hours after cath completed Praneeth Mata DO 06/14/2022 10:18 AM SPIRITUAL CARE DEPART[place] [facility] [place] Shift date: 06/13/2022 Shift day: Monday Shift # 3 Room # Name: Honey Montes Shinto: [employer] Place of taoist: [employer] [place] Referral: Routine Visit Admit Date & Time: 06/12/2022 11:07 PM Assessment: Honey Montes is a 62 y.o. female in the hospital because of Chest Pain. Upon entering the room commercial underwriter observes patient resting in hospital bed, watching TV, with daughter resting on couch. Intervention: Remote Mortgage Underwriter introduced self and title as civil engineering design draftsperson. Patient shared that her symptoms come and go. Patient shared that she has already undergone six heart catheterizations, and had five stents placed. Patient indicated that she will be undergoing her seventh catheterization tomorrow. Patient and daughter were coping well and receptive of chaplains visit. Production Quality Analyst provided support and hospitality to patient and daughter. Outcome: Patient and daughter thanked civil engineering design draftsperson for visit. Plan: Chaplains will remain available to offer spiritual and emotional support as needed. 06/13/222122 Encounter Summary Service Provided For: Patient and family together Referral/Consult From: Moodswiing System Spouse;Children;Family members Last Encounter 06/13/22 Complexity of Encounter Low Begin Time 2133 End Time 214 Total Time Calculated 13 min Encounter Type Initial Screen/Assessment Spiritual/Emotional needs Type Spiritual Support Assessment/Intervention/Outcome Assessment Calm;Coping Intervention Active listening;Discussed illness injury and it s impact;Explored/Affirmed feelings, thoughts, concerns;Explored Coping Skills/Resources;Nurtured Hope;Sustaining Presence/Ministry of presence Outcome Comfort;Coping;Receptive Plan and Referrals Plan/Referrals Continue to visit, (comment) (as needed) . Spiritual Care Department [facility] [phone] Images from the original note were not included. Attending Physician Statement I have discussed the care of Honey Montes, including pertinent history and exam findings, with the fur buyer/resident. I have seen and examined the patient and the aquino elements of all parts of the encounter have been performed by me. I have completed at least one if not all aquino elements of the E/M (history, physical exam, and MDM). I agree with the assessment, plan and orders as documented by the resident with additional recommendations as below: Patient with hx of PCI to RCA/LCx in 2017 followed by recent acute WA and PCI in [place] in february 2022 with residual stenosis, records not available, was scheduled for PCI this afternoon, returned to hospital last night with recurrent chest pain. ECG shows nonspecific T wave abnormality, troponin's are normal. Hemodynamically stable and currently chest pain free. Will proceed with LHC and intervention as indicated. I have discussed in detail the risks, benefits, and alternatives to the procedure including but not limited to risk of bleeding/hematoma requiring surgical intervention, contrast induced allergy and/or nephropathy, arrythmia, CVA, WA or . The patient verbalized understanding and wishes to proceed. Lillie Echevarria MD, [facility], [facility] documented in this encounter [facility] [employer] Phone: 06-15-2022 Hospital Discharge instructions Praneeth Mata DO - 06/15/2022 11:20 AM EDT -Follow-up with your primary care physician within 1 week of discharge for reevaluation after hospitalization -Follow-up with coronary clinical specialist in 2 weeks -Return to hospital if he develop any chest pain, shortness of breath, nausea, vomiting, diarrhea abdominal pain or if you are not feeling well -Continue take medication as prescribed documented in this encounter [facility] [employer] Phone: 06-15-2022 Hospital course Narrative Images from the original note were not included. [facility] Office: [phone] Anival Baeza DO, Kelvin Khan DO, Jn Frederick DO, Kamlesh Oconnor DO, Apolinar Mirza MD, Nicky Carr MD, Laurie Erwin MD, Pascale Quinn MD, Jonathan Edmond MD, Darek Heaton MD, Jaleel Raya DO, Renee Upton MD, Praneeth Mata DO, Irina Mejia MD, Earl Ellis MD, Margarito Baeza DO, Kim Wooten MD, Owen Lin MD, Nadege Quan MD, Dayna Trinh MD, Clarissa Parra MD, Shantelle Govea MD, Adrian Jeffries DO, Ophelia Cabrera MD, Deejay Pierre MD, Gloria Olivas, PRECISION AGRICULTURE TECHNICIAN, Lynette Kaiser, PRECISION AGRICULTURE TECHNICIAN, Godwin Johnson, PRECISION AGRICULTURE TECHNICIAN, Víctor Hargrove, PRECISION AGRICULTURE TECHNICIAN, BEBE Baldwin-Jolene, Shey Wallace, [facility], Re Ryan, PRECISION AGRICULTURE TECHNICIAN, Antionette Giron, PRECISION AGRICULTURE TECHNICIAN, Leticia Burgos, [facility], Tootie Nam, [facility], Domitila Umana, [facility], Meme Mendoza, [facility], Iris Zhang, [facility], Cleo Alonso, [facility], Velma Hammer, [facility], Jimena Bryant, [facility] IN-PATIENT SERVICE [facility] Discharge Summary Patient ID: Honey Montes : 1960 ACCOUNT: [id number] Patient's PCP: Corina Cook Admit Date: 06/12/2022 Discharge Date: 06/15/2022 Length of Stay: 3 Code Status: Full Code Admitting Physician: Jaleel Raya DO Discharge Physician: Praneeth Mata DO Active Discharge Diagnoses: Hospital Problem Lists: Principal Problem: Chest pain Active Problems: Type 2 diabetes mellitus, without long-term current use of insulin (HCC) History of GI bleed History of breast cancer HTN (hypertension) Dyslipidemia Coronary artery disease involving lone pine coronary artery with unstable angina pectoris (HCC) Chronic pain syndrome Constipation Chronic diastolic (congestive) heart failure (HCC) Thrombocytosis 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 * Admission Condition: serious Discharged Condition: stable Hospital Stay: Hospital Course: Honey Montes is a 62-year-old female with a history of coronary disease s/p WA with drug-eluting stents, recent STEMI April 02 with additional 2 stent placement, hypertension, dyslipidemia, diabetes, tobacco abuse who presents to the hospital complaints of chest pain. Pt was admitted and seen by cardiology and had cardiac catheterization 06/14 which showed focal instent restenosis of mid RCA with normal LV systolic function and EF 55%. Pt had successful POBA of mid RCA InStent restenosis with good results. Pt was started on Norvasc 5 mg daily. Currently, patient is stable for discharge. She will need to follow up with cardiology within two weeks of discharge for reevaluation and PCP within one week of discharge for reevaluation. Significant therapeutic interventions: CARDIAC CATHETERIZATION Date: 06/14/2022 Patient name: Honey Montes Date of admission: 06/12/2022 11:07 PM Date of : 1960 Operators: Primary: Bruce Lopez MD (Attending Physician) Procedure performed: [x] Left Heart Catheterization. [] Graft Angiography. [x] Left Ventriculography. [] Right Heart Catheterization. [x] Coronary Angiography. [] Aortic Valve Studies. [] PCI: [] Other: Pre Procedure Conscious Sedation Data: ASA Class: [] I [] II [x] III [] IV Mallampati Class: [x] I [] II [] III [] IV Indication: - ACS Procedure: Access: [x] Femoral [] Radial artery [x] Right [] Left Procedure: After informed consent was obtained with explanation of the risks and benefits, patient was brought to the lab aide. The access area was prepped and draped in sterile fashion. 1% lidocaine was used for local block. The artery was cannulated with 6 Fr sheath with brisk arterial blood return. The side port was frequently flushed and aspirated with normal saline. Findings: LMCA: has distal 20% stenosis. LAD: has patent mid previously placed stent. The distal LAD has diffuse narrowing. The D1 has patent previously placed stent in the proximal segment. LCx: has patent previously placed stent in the proximal segment extending into OM1. RCA: has patent previously placed stent in the mid segment with focal 70% instent restenosis. Lesion on Mid RCA: Mid subsection.70% stenosis 10 mm length reduced to 0%. Pre procedure DIEGO III flow was noted. Post Procedure DIEGO III flow was present. Good runoff was present. The lesion was diagnosed as Moderate Risk (B). The lesion was discrete and eccentric.The lesion showed mild angulation and mild tortuosity.Lesion plaque is ruptured. Comments:instent restenosis. Devices used - organgir.amwater Flex 180 cm. Number of passes: 1. - NC Euphora Balloon 3.0mm x 12mm. 3 inflation(s) to a max pressure of: 15 gilma. Coronary Tree Dominance: Right LV Analysis LV function assessed as:Normal. Ejection Fraction + ---+---+ !Method !EF%! + ---+---+ !LV gram !55 ! + ---+---+ Procedure Summary Patent LAD, D1 and LCX/OM1 stent. Focal Instent restenosis of mid RCA Normal LV systolic function; LVEF 55%. Successful POBA of mid RCA instent restenosis with excellent results. Recommendations Medical therapy as needed. Risk factor modification. Add norvasc 5m gpo qhs. Counseled to quit smoking. Significant Diagnostic Studies: Labs / Micro: CBC: Lab Results Component Value Date/Time WBC 13.0 06/15/2022 07:39 AM RBC 4.43 06/15/2022 07:39 AM HGB 12.7 06/15/2022 07:39 AM HCT 39.0 06/15/2022 07:39 AM MCV 88.0 06/15/2022 07:39 AM MCH 28.7 06/15/2022 07:39 AM MCHC 32.6 06/15/2022 07:39 AM RDW 16.3 06/15/2022 07:39 AM PLT 276 06/15/2022 07:39 AM BMP: Lab Results Component Value Date/Time GLUCOSE 97 06/14/2022 10:43 AM NA 141 06/14/2022 10:43 AM K 4.0 06/14/2022 10:43 AM CL 108 06/14/2022 10:43 AM CO2 22 06/14/2022 10:43 AM ANIONGAP 11 06/14/2022 10:43 AM BUN 9 06/14/2022 10:43 AM CREATININE 0.41 06/14/2022 10:43 AM BUNCRER NOT REPORTED 04/20/2020 05:02 AM CALCIUM 8.4 06/14/2022 10:43 AM LABGLOM >60 06/14/2022 10:43 AM GFRAA >60 06/14/2022 10:43 AM GFR 06/14/2022 10:43 AM HFP: Lab Results Component Value Date/Time PROT 6.1 06/13/2022 06:51 AM Radiology: No results found. Consultations: Consults: Final Specialist Recommendations/Findings: IP CONSULT TO CARDIOLOGY IP CONSULT TO HEM/ONC IP CONSULT TO DIETITIAN The patient was seen and examined on day of discharge and this discharge summary is in conjunction with any daily progress note from day of discharge. Discharge plan: Disposition: Home Physician Follow Up: [place] [id number] [place] [id number] Follow up on 06/24/2022 at 8:[address] [place] [id number] Schedule an appointment as soon as possible for a visit in 3 day(s) Hospital follow up Requiring Further Evaluation/Follow Up POST HOSPITALIZATION/Incidental Findings: -Follow-up with your primary care physician within 1 week of discharge for reevaluation after hospitalization -Follow-up with coronary clinical specialist in 2 weeks -Return to hospital if he develop any chest pain, shortness of breath, nausea, vomiting, diarrhea abdominal pain or if you are not feeling well -Continue take medication as prescribed Diet: cardiac diet Activity: As tolerated Instructions to Patient: see above Discharge Medications: Medication List START taking these medications amLODIPine 5 MG tablet Commonly known as: NORVASC Take 1 tablet by mouth nightly nitroGLYCERIN 0.4 MG SL tablet Commonly known as: NITROSTAT up to max of 3 total doses. If no relief after 1 dose, call 911. CHANGE how you take these medications gabapentin 300 MG capsule Commonly known as: NEURONTIN What changed: Another medication with the same name was removed. Continue taking this medication, and follow the directions you see here. CONTINUE taking these medications ALPRAZolam 1 MG tablet Commonly known as: XANAX aspirin 81 MG chewable tablet atorvastatin 80 MG tablet Commonly known as: LIPITOR Take 1 tablet by mouth nightly citalopram 20 MG tablet Commonly known as: CELEXA clopidogrel 75 MG tablet Commonly known as: PLAVIX docusate 100 MG Caps Commonly known as: COLACE, DULCOLAX Take 100 mg by mouth 2 times daily ferrous sulfate 325 (65 Fe) MG EC tablet Commonly known as: FE TABS 325 isosorbide mononitrate 30 MG extended release tablet Commonly known as: IMDUR metFORMIN 1000 MG tablet Commonly known as: GLUCOPHAGE metoprolol tartrate 25 MG tablet Commonly known as: LOPRESSOR Take 1 tablet by mouth 2 times daily morphine 30 MG extended release capsule Commonly known as: ALLYSSA omeprazole 20 MG delayed release capsule Commonly known as: PRILOSEC oxyCODONE-acetaminophen 7.5-325 MG per tablet Commonly known as: PERCOCET potassium chloride 10 MEQ extended release capsule Commonly known as: MICRO-K tamoxifen 10 MG tablet Commonly known as: NOLVADEX traMADol 50 MG tablet Commonly known as: ULTRAM STOP taking these medications famotidine 20 MG tablet Commonly known as: PEPCID magnesium oxide 400 MG tablet Commonly known as: MAG-OX meclizine 25 MG tablet Commonly known as: ANTIVERT midodrine 5 MG tablet Commonly known as: PROAMATINE naphazoline-pheniramine 0.025-0.3 % ophthalmic solution Commonly known as: NAPHCON-A nicotine 14 MG/24HR Commonly known as: NICODERM CQ pantoprazole sodium 40 MG Pack packet Commonly known as: PROTONIX sertraline 50 MG tablet Commonly known as: ZOLOFT zolpidem 10 MG tablet Commonly known as: AMBIEN Where to Get Your Medications These medications were sent to [facility], [place] - [address] [facility] - P [phone] - F [phone] [place], [place] [address] [address] amLODIPine 5 MG tablet metoprolol tartrate 25 MG tablet nitroGLYCERIN 0.4 MG SL tablet No discharge procedures on file. Time Spent on discharge is 33 mins in patient examination, evaluation, counseling as well as medication reconciliation, prescriptions for required medications, discharge plan and follow up. Electronically signed by Praneeth Mata DO 06/15/2022 11:[address] Corina Cook for the opportunity to be involved in this patient's care. documented in this encounter [facility] Phone: 06-11-2022 Hospital Discharge instructions Rafaela Rollins DO - 06/11/2022 10:34 AM EDT Please take your aspirin and Plavix as prescribed. Make sure to follow-up with cardiology for their planned intervention. Please return to the ED for any worsening chest pain, shortness of breath, nausea, sweating, or any other new concerning symptoms. Follow-up with your primary care doctor as needed. The following attachments cannot be sent through Care Everywhere.Angina (Senegalese)documented in this encounter [facility] Phone: 06-11-2022 History of Present illness Narrative Patient states her name is wrong and it is not her maiden name but her former name. Registration notified and is going to [facility], house sup rin aware of wrong name. Will continue to monitor registration for name change. Report called from ed spoke with Kvng brewster, expressed concerns with kvng brewster that Trops are trending upward from 9 to 10 and blood sugar 43. Remote [employer] Underwriter asked kvng brewster to reassess patient and ask if its ok for patient in come to unit with troponin's still trending up wards and bs at 47 documented in this encounter [facility] Phone: 04-28-2022 Nurse Note What is the reason for your visit today? Follow up Who is your referring physician? Are you having poor oral intake? NO Have you had unintentional weight loss of 15 lbs/7 Kg in the last 3-6 months? NO Bowels: constipated Wound: Temperature: No Drains: No documented in this encounter [facility] 04-28-2022 History of Present illness Narrative Assessment ESTABLISHED PATIENT Honey Montes is a 61 year old female with history of neuroendocrine tumor resection along with jejunojejunostomy. 08/31/2020 s/p Exploratory laparotomy, lysis of adhesions, resection of proximal jejunumand partial resection of D4 with resection of mesenteric mass, End-to-side duodenojejunostomy, Mgvy-cd-yhje jejunojejunostomy, Resection of the jejunojejunostomy, Cholecystectomy. 01/13/2022: Marginal ulcer perforation repair INTERVAL HPI: She currently complains of intermittent diffuse abdominal pain that worse with meals. She has no N/V or Changes in bowel habits. She has significant weight loss in the last 1 year. She is concerned if a metastasis from her neuroendocrine tumor may have caused the recurrent marginal ulcer perforation. She developed her 2nd gastric ulcers perforation on december 2021. After the latest ulcer perforation she underwent routine CT scan that showed jejunal wall thickening 1.2 cm. She also developed heart attack during the last month and required stenting. No EGD was done due to anti-platelet therapy. PAST MEDICAL HISTORY Diagnosis Date Coronary artery disease Diabetes (HCC) History of transfusion HTN (hypertension) Hx of colonoscopy 2017 Hyperlipidemia Neuroendocrine carcinoma of small bowel (HCC) 2017 STEMI (ST elevation myocardial infarction) (HCC) 03/2018 s/p PTCA-SUNITHA Tobacco abuse PAST SURGICAL HISTORY Procedure Laterality Date COLONOSCOPY GEN ANES N/A 12/10/2020 normal colonoscopy COLONOSCOPY GEN ANES 12/24/2018 Fragments of Tubular Adenoma EGD 06/26/2020 Normal PARTIAL GASTRECTOMY 03/2020 s/p partial gastrectomy due to perforation ROTATOR CUFF REPAIR 11/2019 IMAGING UPDATE: 2CT A/P View External Imaging - CT Scan [ID [id number]] PHYSICAL EXAMINATION: BP: 119/52 BMI: 17.4 General Appearance:Well appearing, alert, in no acute distress, well-hydrated, well nourished. Skin: Skin color, texture, turgor normal, no suspicious rashes or lesions }. Abdomen: Normal abdominal exam,Abdomen soft, mild diffuse tenderness more on the rt side. Bowel sounds normal. No masses, organomegaly. IMPRESSION: Marginal ulcers Ongoing smoking PLAN: Patient is very well-known to me from the past. She had a recent operation in [place] for a perforated marginal ulcer. Her GJ was repaired with sutures. She is here today to follow-up. She is concerned that a malignant process is causing her recurrent ulcerations. However she continues to smoke. She does not appear to be aware that smoking causes marginal ulcers which I have talked to her extensively about. With regards to follow-up on the tumor, will obtain a CT abdomen pelvis Abd Pelvis CT Counceled about smoking cessation Jr Sinha MD documented in this encounter [facility] 04-06-2022 Miscellaneous Notes Patient's daughter called. Rescheduled appointment for April [address] Sinha. Olga Parsons Pss Patient's daughter Lucero called in and would like to make an appointment to see Dr. Sinha. Patient was in [place] and just returned home. Patient had surgery with Dr. Sinha back in Aug 2020. Daughter's contact# is [phone] documented in this encounter [facility] 02-07-2022 Miscellaneous Notes Images from the original note were not included. Jr Sinha MD You 3 days ago Thank you. She needs to completely her [place] given perforated viscus Message text Records have been downloaded from Care Everywhere. Hospital: [facility] CT Ab/Pelvis 01/13/2022 IMPRESSION: 1. Small pneumoperitoneum with suspected perforated marginal ulcer just distal to the gastrojejunostomy. 2. Thickened small bowel loops with fluid and semisolid fecal material in the colon with no formed feces, compatible with a nonspecific enteritis. This could be reactive inflammation, infectious neuritis, or much less likely inflammatory bowel disease. Exploratory Laparotomy-01/13/2022 - repair of perforated ulcer and extensive lysis of adhesions Discussed with Dr. Sinha: patient had emergent issue that was surgically repaired in [facility]; no urgent need to see Dr. Sinha as this is not cancer related; continue care with surgeon while in [place]; follow recommendation for GI consult and pain managment Patient currently in [place]. Was seen in hospital for perforated ulcer and had CT scan and labs drawn. Calling because she has pain from her incision to the left side. CT scan showed adhesions wrapped around small intestine. I requested CT scan and report from [facility] in [place], [place]. Faxed request to [phone]. Asking for an appointment with Dr. Bharath TREJO.Will schedule her when we receive the images. Olga Parsons Pss documented in this encounter [facility] 02-04-2022 Miscellaneous Notes Patient has seen Dr. Jr Sinha in the past, and had a surgery as well. I asked if she wanted to see Dr. Dutton or Dr. Sinha since she has established care with him. She would prefer to see Dr. Sinha. I gave her the number to schedule with Dr Sinha, and I will cancel her appt. with Dr. Dutton. documented in this encounter [facility] 09-13-2020 Note HNO ID: [id number] Author: Mahamed Jiang (Jae Perez MD Service: Critical Care Author Type: Resident Type: Progress Notes Filed: 09/13/2020 10:00 AM Note Text: . GENERAL SURGERY PROGRESS NOTE NAME: Honey Montes 09/13/2020 8:21 AM Subjective: Interval events No acute events overnight. Pain waxes and wanes, per patient. Improves with narcotics. Has an appetite. Requesting a diet. No other complaints. Objective: 09/12/20 1513 09/12/20 1824 09/12/20202909/13/20 0303 BP: 114/64 115/63 122/55 137/64 Pulse: 66 60 65 (!) 54 Resp: 18 18 16 Temp: 36.5 ?C (97.7 ?F) 36.6 ?C (97.9 ?F) 36.8 ?C (98.2 ?F) 36.7 ?C (98.1 ?F) TempSrc: Oral Oral Oral SpO2: 92% 93% 93% 94% Weight: Height: GENERAL: Well appearing. HEENT: Atraumatic, ROM full, RS: Expected chest raise seen bilaterally CVS: Regular rate and rhythm ABDOMEN: Firm, very tender to palpation, guarding present. Rigid and rebound tenderness present. Incision c/d/i. LAWN SERVICE SUPERVISOR: Alert, orientedx3, No sensory or motor deficits EXTREMITIES: Pulses intact. Recent Labs 09/12/20 0700 09/11/20 1705 WBC 8.09 9.27 HB 10.4* 11.6 HCT 32.2* 36.4 PLT 544* 565* NA 142 138 K 4.7 3.8 CHLOR 109 101 CO2 22* 29 CREAT 0.51* 0.65* BUN 4* 3* GLUC 65 85 P 5.0* -- TPROT -- 6.6 ALB -- 3.8 MG 1.8 1.9 CA 8.9 9.1 ALKPHOS -- 89 TBILI -- <0.2* AST -- 18 ALT -- 19 Date 09/12/20 0700 - 09/13/20 0659 Shift 4512-8569 4374-4125 9352-6759 24 Hour Total INTAKE Shift Total OUTPUT Urine 400 400 Shift Total 400 400 Weight (kg) 49 49 49 49 Assessment and Plan: 60 year old female with a history of a neuroendocrine tumor in the root of mesentery s/p exploratory laparotomy, excision of mesenteric mass involving D4 and proximal jejunum, resection of JJ, creation of DJ and new JJ with 40 cm BP limb, cholecystectomy?on 08/31/2020, partial gastrectomy on January 13, 2020, rotator cuff surgery on 11/2019, splenectomy, JAIME-BSO around 12 years ago, DM, CAD s/p x3 stents, and lumpectomy. She's been having persistent abdominal pain since her discharge 7 days ago. She's passing loose stools. No nausea or vomiting. An OSH CT read free fluid and air around the thickened Parrish limb and free air in the GB fossa which could be post-surgical. Takes daily plavix. Afebrile. Not tachycardic. No nausea, no vomiting. Denies fevers, chills, CP, SOB. Her abdomen is soft with right and left upper abdominal tenderness, nonperitonitic. Seems that she is at her baseline abdominal pain. Plan - Continue current pain regimen; continue home celexa, gabapentin, and ambien - Continue home metoprolol - Will trial CLD today, decrease mIVF - Hold metformin, monitor blood glucose, SSI available - Hold home Plavix - Continue empiric zosyn - Follow up AM labs - SCDs, SQH q8h for DVT ppx Plan of care discussed with Surgery Staff Dr. Fernandez/Bharath Perez MD General Surgery, PGY-2 09/13/2020 9:49 AM For team paging 6AM-6PM during weekdays: [phone] for [facility] Team (Joaquina Sinha Pratt). For team paging after 6PM or on weekend / holidays: [phone] for General Surgery [facility] 09-12-2020 Note HNO ID: [id number] Author: Loki Fernandez Service: General Surgery Author Type: Physician Type: Progress Notes Filed: 09/12/2020 12:39 PM Note Text: . GENERAL SURGERY PROGRESS NOTE NAME: Honey Montes 09/12/2020 11:38 AM Subjective: Interval events No acute events overnight. Pain: essentially the same. Controlled with meds. No other complaints. Objective: 09/11/20 2215 09/11/20 2302 09/12/20 0320 09/12/20 0936 BP: 119/56 105/51 109/57 99/60 Pulse: 63 63 84 Resp: 16 16 18 Temp: 36.5 ?C (97.7 ?F) 37 ?C (98.6 ?F) 36.6 ?C (97.9 ?F) TempSrc: Oral Oral Oral SpO2: 98% 98% 96% 91% Weight: Height: GENERAL: Well appearing. HEENT: Atraumatic, ROM full, RS: Expected chest raise seen bilaterally CVS: Regular rate and rhythm ABDOMEN: Firm, very tender to palpation, guarding present. Rigid and rebound tenderness present. Incision c/d/i. LAWN SERVICE SUPERVISOR: Alert, oriented *3, No sensory or motor deficits EXTREMITIES: Pulses intact. Recent Labs 09/12/20 0700 09/11/20 1705 WBC 8.09 9.27 HB 10.4* 11.6 HCT 32.2* 36.4 PLT 544* 565* NA 142 138 K 4.7 3.8 CHLOR 109 101 CO2 22* 29 CREAT 0.51* 0.65* BUN 4* 3* GLUC 65 85 P 5.0* -- TPROT -- 6.6 ALB -- 3.8 MG 1.8 1.9 CA 8.9 9.1 ALKPHOS -- 89 TBILI -- <0.2* AST -- 18 ALT -- 19 Date 09/12/20 0700 - 09/13/20 0659 Shift 9892-5828 3412-8363 3139-4466 24 Hour Total INTAKE Shift Total OUTPUT Urine 400 400 Shift Total 400 400 Weight (kg) 49 49 49 49 Assessment and Plan: 60 year old female with a history of a neuroendocrine tumor in the root of mesentery s/p exploratory laparotomy, excision of mesenteric mass involving D4 and proximal jejunum, resection of JJ, creation of DJ and new JJ with 40 cm BP limb, cholecystectomy?on 08/31/2020, partial gastrectomy on January 13, 2020, rotator cuff surgery on 11/2019, splenectomy, JAIME-BSO around 12 years ago, DM, CAD s/p x3 stents, and lumpectomy. She's been having persistent abdominal pain since her discharge 7 days ago. She's passing loose stools. No nausea or vomiting. An OSH CT read free fluid and air around the thickened Parrish limb and free air in the GB fossa which could be post-surgical. There was concern for SB ischemia, inflammation, or infection. Takes daily plavix. Afebrile. Not tachycardic. No nausea, no vomiting. Denies fevers, chills, CP, SOB. Her abdomen is soft with right upper and right lower abdominal tenderness, nonperitonitic. ? Plan - Cont non operative management for now. - Serial abdominal exams. - NPO/mIVFs. - Will start empiric zosyn - Analgesia and antiemetic prn. Plan of care discussed with Surgery Staff Dr. Fernandez/Bharath ? Dr. Min Lundberg General Surgery, PGY-2 Contact pager/cell: [phone] ? For team paging 6AM-6PM during weekdays: [phone] for [facility] Team (Joaquina Sinha Pratt). For team paging after 6PM or on weekend / holidays: [phone] for General Surgery I saw and evaluated the patient. Discussed with the resident and agree with resident's findings and plan as documented in the resident's note. As above. Patient continues to have significant pain, and does have some degree of guarding in her upper quadrants, but does not appear toxic, and vitals/labs OK. No indications for urgent operation or further intervention. d/w Dr Sinha, and we will add empiric atbx therapy given complexity of her operation. Will follow closely. Loki Fernandez MD September 12, 2020 12:39 PM [facility] 09-12-2020 Note HNO ID: [id number] Author: Wally Hayes Service: General Surgery Author Type: Resident Type: Progress Notes Filed: 09/12/2020 5:15 AM Note Text: SERIAL ABDOMINAL EXAMS Honey Montes [id number] 09/12/2020 0205 - Patient was found asleep. She endorsed no changes in her pain. Her abdomen continued to have mild tenderness on right upper and lower quadrants. No changes in rigidity or distention. Rebound negative. 0500 - Patient is awake, states her pain has been the same. Her abdomen continues to be soft, mildly tender along the right substernal and subcostal abdomen and RUQ, less tender on the left abdomen. No rebound tenderness, not rigid, no guarding. SIGNATURE: Wally Hayes MD PATIENT NAME: Honey Montes DATE: September 12, 2020 TIME: 1:50 AM PAGER/CONTACT #: [facility] 09-04-2020 Note HNO ID: [id number] Author: rJ Sinha Service: General Surgery Author Type: Physician Type: Progress Notes Filed: 09/04/2020 4:08 PM Note Text: . GENERAL SURGERY PROGRESS NOTE NAME: Honey Montes 09/04/2020 1:11 PM Subjective: Interval events: No acute events overnight. Pain control much improved. Tolerating full liquid diet without nausea or vomiting Ambulating and voiding independently Objective: 09/03/20 2100 09/04/20 0311 09/04/20 0721 09/04/20 1123 BP: (!) 110/45 117/64 103/54 (!) 106/35 Pulse: 65 61 74 (!) 55 Resp: 16 16 Temp: 36.9 ?C (98.4 ?F) 36.6 ?C (97.9 ?F) TempSrc: Oral Oral SpO2: 93% 97% 99% Weight: Height: GENERAL: Well appearing. HEENT: Atraumatic, Normocephalic, full ROM PULM: Bilateral chest rise, no respiratory distress on RA CVS: Regular rate and rhythm, extremities warm and well perfused ABDOMEN: soft, non distended, appropriately tender; incision sites are clean, dry and intact without erythema or drainage LAWN SERVICE SUPERVISOR: Alert, oriented x3, No sensory or motor deficits EXTREMITIES: No edema, rash, or new lesions Recent Labs 09/04/20 0424 09/03/20 0428 09/02/20 0419 WBC 8.87 10.24 15.98* HB 10.4* 10.4* 10.9* HCT 31.4* 31.1* 32.7* PLT 244 218 220 NA 138 138 136 K 5.1* 4.2 4.2 CHLOR 102 101 101 CO2 27 30 26 CREAT 0.53* 0.62* 0.55* BUN 3* 4* 5* GLUC 82 85 80 P 4.3 3.4 3.8 MG 2.0 1.6* 1.7 CA 9.2 8.8 8.7 Date 09/04/20 0700 - 09/05/20 0659 Shift 0132-3875 0409-0097 5449-4918 24 Hour Total INTAKE PO 240 240 Shift Total 240 240 OUTPUT Urine 850 850 Tubes 30 30 Shift Total 880 880 Weight (kg) 51.8 51.8 51.8 51.8 Assessment and Plan: Honey Montes is s/p?Exploratory laparotomy, excision of mesenteric mass involving D4 and proximal jejunum, resection of JJ, creation of DJ and new JJ with 40 cm BP limb, cholecystectomy?for neuroendocrine tumor 08/31/2020. Neuro/Pain: PVNBs and CARROT TIER both discontinued, started PO pain regimen - tylenol, gabapentin, diclofenac patch, lidocaine patch, oxycodone, IV fentanyl; home ambien as needed qhs, celexa Cardio/Resp: Incentive spirometry; continue home lopressor FEN/GI: d/c IVF. Replete Lytes prn. Diet: GI Soft. Zofran prn. Continue home pepcid. Renal: Strict I/Os. Urine output appropriate. Heme/DVT PPx: ICDs, heparin 5000 q8h; will resume Plavix at discharge Wound/ID: abdominal wounds clean and dry; replaced dressing as needed Lines/drains: continue drain to bulb suction; will remove prior to discharge Endo: Monitor blood glucose, SSI available Activity: out of bed, ambulate as able. Dispo: continue RNF; recommending Home PT, patient has declined Plan of care to be discussed with Surgery Staff Dr. Sinha. Mahamed Perez MD General Surgery, PGY-2 09/04/2020 1:11 PM For team paging 6AM-6PM during weekdays: [phone] for [facility] Team (Joaquina Sinha Pratt). For team paging after 6PM or on weekend / holidays: [phone] for General Surgery [facility] 09-04-2020 Note HNO ID: [id number] Author: Dorcas Gregory RN Service: Care Management Author Type: Registered Nurse Type: Care Mgt Progress Note Filed: 09/04/2020 4:07 PM Note Text: CARE MANAGEMENT PROGRESS NOTE SERVICE DATE: 09/04/2020 SERVICE TIME: 11:03 AM LOS: 4 days this CM met with the pt at the bedside to review dc planning needs for HHC. The pt is accepted by [facility] for [facility] for PT/OT. The pt is asking for a Home Care Nurse. A message was sent to Dr Earl Loo to include SN in the HHC order. [facility] was updated that dc may be tomorrow or Monday, pending the patient's progress. per discussion with the bedside RNPhilly, the CARLTON drain will likely be removed and there will be no wound care needs. The pt does not want PT OT at home. Her daughter is staying with her. [facility] was updated. 4:07 PM The Pt has dc order, she declines [facility] [facility] for PT OT and she has no SN, HHC needs. [facility] was notified. SIGNATURE: Dorcas Gregory RN,BSN PATIENT NAME: Honey Montes DATE: September 04, 2020 TIME: 11:03 AM PAGER/CONTACT #: [phone] [facility] 09-03-2020 Note HNO ID: [id number] Author: Earl Loo Service: General Surgery Author Type: Resident Type: Progress Notes Filed: 09/03/2020 8:09 AM Note Text: . GENERAL SURGERY PROGRESS NOTE NAME: Honey Montes 09/03/2020 5:38 AM Subjective: Interval events: - Pain well-controlled with fentanyl CARROT TIER; has bilateral paravertebral nerve block w/ indwelling catheters; pain management on board and will consider transition from CARROT TIER to PO today - DC'd NGT; no n/v; tolerating liquid diet - UOP adequate - No CP, SOB, fever, chills Objective: 09/02/20201009/02/20219909/03/20 0400 09/03/20 0413 BP: 109/64 117/60 Pulse: 77 60 62 Resp: 16 Temp: 37.2 ?C (99 ?F) 36.6 ?C (97.9 ?F) TempSrc: Oral Oral SpO2: 97% 97% 96% Weight: Height: Gen: Alert and oriented Cv: Normal rate, regular rhythm. S1,S2 +, no additional murmurs appreciated Resp: Lungs clear to auscultation bilaterally. No wheezes or rales Abdomen: Soft, nondistended, appropriately tender. Incision intact without erythema, induration or drainage. Fascia closed with deep dermal sutures. Dressing C/D/I Recent Labs 09/02/2041809/01/20 04408/31/202203 WBC 15.98* 21.14* 17.84* HB 10.9* 11.5 13.4 HCT 32.7* 34.6* 41.6 PLT 220 245 234 NA 136 140 134 K 4.2 4.1 3.7 CHLOR 101 105 99 CO2 26 23 24 CREAT 0.55* 0.55* 0.47* BUN 5* 8 7* GLUC 80 153* 152* P 3.8 4.9* 4.8* TPROT -- 5.1* -- ALB -- 3.2* -- MG 1.7 1.2* 1.2* CA 8.7 8.9 8.8 ALKPHOS -- 39 -- TBILI -- 0.4 -- AST -- 23 -- ALT -- 15 -- Assessment and Plan: Honey Jolene Montes is POD 2 s/p Exploratory laparotomy, excision of mesenteric mass involving D4 and proximal jejunum, resection of JJ, creation of DJ and new JJ with 40 cm BP limb, cholecystectomy for neuroendocrine tumor. ? - Overall doing well. Expected post op course. 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 Tylenol PO q6 and fentanyl CARROT TIER for pain control. Per APMS, will transition from CARROT TIER to PO as tolerated. Appreciate APNV recs. - RS/CVS: incentive spirometry, on room air. - FEN/GI: Diet: Advance to FLD + supplements; Replete lytes prn; Pepcid BID. - Renal: Strict I/Os. - Endo: Monitor glucose, ISS-1 - Lines/Drains: CARLTON in LLQ - ss - OOB, ambulate as able - SCDs for DVT prophylaxis Plan of care to be discussed with Surgery Staff [place]. [place], [place] [id number] September 03, 2020 5:34 AM RESIDENT - ASSESSMENT AND PLAN: Patient seen and examined with MS Agree with assessment and plan above, changes made in italics Earl Loo MD General Surgery For any questions please contact Surgery [facility] [phone] weekdays. Or [phone] weeknights (6pm - 6am) and weekends. Date: 09/03/2020 Time: 8:08 AM [facility] 09-02-2020 Note HNO ID: [id number] Author: Min Bone (Res) MD Eduardo Service: General Surgery Author Type: Resident Type: Progress Notes Filed: 09/02/2020 11:22 AM Note Text: . GENERAL SURGERY PROGRESS NOTE NAME: Honey Montes 09/02/2020 10:41 AM Subjective: Interval events: - Switched from dilaudid to fentanyl CARROT TIER yesterday due to difficult managing pain. Pain was ranging from 8-10/10. Now improved. Has bilateral paravertebral nerve block w/ indwelling catheters - NG tube with clear, minimal output; no N/V - UOP adequate - No CP, SOB, fever, chills. Objective: 09/01/20211309/01/20219909/02/207 09/02/20 0923 BP: 105/55 152/74 115/59 Pulse: 78 83 72 Resp: 16 Temp: TempSrc: Oral SpO2: 92% 91% Weight: Height: Gen: Alert and oriented Cv: Normal rate, regular rhythm. S1,S2 +, no additional murmurs appreciated Resp: Lungs clear to auscultation bilaterally. No wheezes or rales Abdomen: Soft, nondistended, appropriately tender. Incision intact without erythema, induration or drainage. Fascia closed with deep dermal sutures. Minimal blood at drain dressing. Recent Labs 09/02/20 0419 09/01/20 0441 08/31/20 2204 WBC 15.98* 21.14* 17.84* HB 10.9* 11.5 13.4 HCT 32.7* 34.6* 41.6 PLT 220 245 234 NA 136 140 134 K 4.2 4.1 3.7 CHLOR 101 105 99 CO2 26 23 24 CREAT 0.55* 0.55* 0.47* BUN 5* 8 7* GLUC 80 153* 152* P 3.8 4.9* 4.8* TPROT -- 5.1* -- ALB -- 3.2* -- MG 1.7 1.2* 1.2* CA 8.7 8.9 8.8 ALKPHOS -- 39 -- TBILI -- 0.4 -- AST -- 23 -- ALT -- 15 -- Assessment and Plan: Honey Jolene Montes is POD 2 s/p Exploratory laparotomy, excision of mesenteric mass involving D4 and proximal jejunum, resection of JJ, creation of DJ and new JJ with 40 cm BP limb, cholecystectomy for neuroendocrine tumor. ? - Overall doing well. Pain improved with fentanyl CARROT TIER. Expected post op course. 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 Tylenol PO q6 and fentanyl CARROT TIER for pain control. Will wean down on the IV pain meds as tolerated. Appreciate APMS recs. - RS/CVS : incentive spirometry, on room air. - FEN/GI: Diet: Advance to liquids; DC NGT; Replete lytes prn. Pepcid BID. - Renal: DC Davey. Strict I/Os. - Endo: Monitor glucose, ISS-1 - Lines/Drains: CARLTON in LLQ - ss - OOB, ambulate as able - SCDs for DVT prophylaxis Plan of care to be discussed with Surgery Staff Dr. [place]ha. [place], [place] [id number] September 02, 2020 10:43 AM For team paging 6AM-6PM during weekdays: [phone] for [place] Team (Joaquina Sinha Pratt). For team paging after 6PM or on weekend / holidays: [phone] for General Surgery I have personally examined the patient, performed an interval history and physical exam, and have edited the above note. Min Clark MD 11:21 AM [facility] 09-01-2020 Note HNO ID: [id number] Author: Min Bone (Res) MD Eduardo Service: General Surgery Author Type: Resident Type: Progress Notes Filed: 09/01/2020 7:12 AM Note Text: . GENERAL SURGERY PROGRESS NOTE NAME: Honey Montes 09/01/2020 7:09 AM Subjective: Interval events Pain not well controlled - has bilateral paravertebral nerve block w/ indwelling catheters , NG tube with mucous and minimal output. no N/V, UOP adequate. No CP or SOB, fever, chills. Objective: 08/31/20 2319 09/01/20 0133 09/01/20 0328 09/01/20328 BP: 132/54 130/50 130/50 Pulse: 88 92 94 Resp: Temp: 37.1 ?C (98.8 ?F) 37.1 ?C (98.8 ?F) TempSrc: Oral Oral SpO2: 95% 94% Weight: 51.8 kg (114 lb 4.8 oz) Height: 165 cm (5' 4.96 ) Gen: Alert and oriented Cv: S1,S2 +, no additional murmurs Resp: Bilateral breath sounds present, no creps or wheezing Abdomen: Soft, nondistended, appropriately tender. Incision intact without erythema, induration or drainage. Island dressing in place. Fascia closed with deep dermal sutures. Recent Labs 09/01/20 0441 08/31/20 2204 WBC 21.14* 17.84* HB 11.5 13.4 HCT 34.6* 41.6 PLT 245 234 NA 140 134 K 4.1 3.7 CHLOR 105 99 CO2 23 24 CREAT 0.55* 0.47* BUN 8 7* GLUC 153* 152* P -- 4.8* TPROT 5.1* -- ALB 3.2* -- MG -- 1.2* CA 8.9 8.8 ALKPHOS 39 -- TBILI 0.4 -- AST 23 -- ALT 15 -- Assessment and Plan: Honey Montes is POD 1 s/p Exploratory laparotomy, excision of mesenteric mass involving D4 and proximal jejunum, resection of JJ, creation of DJ and new JJ with 40 cm BP limb, cholecystectomy for neuroendocrine tumor. ? 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 Tylenol and Dilaudid IV prn available for pain control. Dilaudid CARROT TIER added for pain control. - RS/CVS : incentive spirometry, on room air, Plavix to be held for 48 hours. Restarted Metop w/ holding parameters. - FEN/GI: Diet: NPO, IVFs, NGT to IWS, Replete lytes prn. Pepcid BID. - Renal: Davey in place. Strict I/Os. - Endo: Monitor glucose, ISS-1 - Lines/Drains: CARLTON in LLQ - ss - OOB, ambulate as able - SCDs for DVT prophylaxis Plan of care to be discussed with Surgery Staff Dr. Sinha. ? Dr. Min Clark General Surgery, PGY-2 Contact pager/cell: [phone] ? For team paging 6AM-6PM during weekdays: [phone] for [place] Team (Joaquina Sinha Pratt). For team paging after 6PM or on weekend / holidays: [phone] for General Surgery [facility] 09-01-2020 Note HNO ID: [id number] Author: Min Bone (Res) MD Eduardo Service: General Surgery Author Type: Resident Type: Progress Notes Filed: 08/31/2020 10:56 PM Note Text: Surgery Post-Op Check Honey Montes 60 year old female [id number] August 31, 2020 Subjective: No complaints, pain not well controlled - has bilateral paravertebral nerve block w/ indwelling catheters , NG tube with mucous output. no N/V, UOP adequate. No CP or SOB, fever, chills. Objective: 08/31/20204408/31/20209908/31/20211408/31/20 2136 BP: 99/51 (!) 95/46 96/50 114/54 Pulse: 83 82 89 94 Resp: Temp: 36.7 ?C (98.1 ?F) 36.5 ?C (97.7 ?F) TempSrc: Temporal Artery Oral SpO2: 94% 94% 93% 100% Gen: Alert and oriented Cv: S1,S2 +, no additional murmurs Resp: Bilateral breath sounds present, no creps or wheezing Abdomen: Soft, nondistended, appropriately tender. Incision intact without erythema, induration or drainage. Island dressing in place. Fascia closed with deep dermal sutures. ASSESSMENT and PLAN: Honey Montes is POD 0 s/p Exploratory laparotomy, excision of mesenteric mass involving D4 and proximal jejunum, resection of JJ, creation of DJ and new JJ with 40 cm BP limb, cholecystectomy for neuroendocrine tumor. 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 Tylenol and Dilaudid IV prn available for pain control - RS/CVS : incentive spirometry, on room air, Plavix to be held for 48 hours. Restarted Metop w/ holding parameters. - FEN/GI: Diet: NPO, IVFs, NGT to IWS, Replete lytes prn. Pepcid BID. - Renal: Davey in place. Strict I/Os. - Endo: Monitor glucose, ISS-1 - Lines/Drains: CARLTON in LLQ - ss - OOB, ambulate as able - SCDs for DVT prophylaxis - Post op labs: reactive leukocytosis. Hb stable. ? [facility] [place] [facility], PGY-2 Contact pager/cell: [phone] ? For team paging 6AM-6PM during weekdays: [phone] for [place] Team (Joaquina Sinha Pratt). For team paging after 6PM or on weekend / holidays: [phone] for General Surgery [facility] 08-31-2020 Note HNO ID: [id number] Author: Aminata Terrazas Service: ? Author Type: Nurse Record Systems Analyst Type: Anesthesia Procedure Notes Filed: 08/31/2020 6:46 PM Note Text: ANESTHESIOLOGY PROCEDURE NOTE Gastric Tube General Information Procedure Start Time/Medication Administration: 08/31/2020 6:40 PM Patient location during procedure: OR Staffing Anesthesiologist: Tomy Cabrera SCIENTIFIC DIRECTOR: Aminata Terrazas Performed by: RACHEL Procedure Details Type: Nasogastric tube Cortrak monitor used: No Size: 18 Fr cm Distance Advanced: 60 cm Securement: taped to the nose Successful Placement: yes Post-Procedure Details Patient tolerated the procedure well with no immediate complications SIGNATURE: Aminata Terrazas APRN.CRNA PATIENT NAME: Honey Montes DATE: August 31, 2020 TIME: 6:45 PM CSN: [id number] [facility] 08-31-2020 Note HNO ID: [id number] Author: Elizabeth Castro Service: ? Author Type: Nurse Record Systems Analyst Type: Anesthesia Procedure Notes Filed: 08/31/2020 2:54 PM Note Text: ANESTHESIOLOGY PROCEDURE NOTE PIV General Information Procedure Start Time/Medication Administration: 08/31/2020 2:30 PM Patient Location: OR Staffing Anesthesiologist: Ld Emmanuel MD SCIENTIFIC DIRECTOR: Elizabeth Castro Performed by: RACHEL Preparation Sterility Preparation: hand hygiene performed prior to procedure, surgical cap used, mask used, skin prep agent completely dried prior to procedure Site Prep: Chloraprep Procedure Details Indication: need for IV access Needle Size/Type: 20 gauge angiocath Orientation: Right Location: Hand Imaging Guidance Used: No SIGNATURE: Elizabeth Castro APRN.CRNA PATIENT NAME: Honey Montes DATE: August 31, 2020 TIME: 2:54 PM CSN: [id number] [facility] 08-31-2020 Note HNO ID: [id number] Author: Elizabeth Castro Service: ? Author Type: Nurse Record Systems Analyst Type: Anesthesia Procedure Notes Filed: 08/31/2020 2:54 PM Note Text: ANESTHESIOLOGY PROCEDURE NOTE Airway General Information Procedure Start Time/Medication Administration: 08/31/2020 2:23 PM Patient location during procedure: OR Timeout Performed Pre-procedure: timeout performed Consent Obtained: Yes Patient identity confirmed: arm band and patient Staffing Anesthesiologist: Ld Emmanuel MD SCIENTIFIC DIRECTOR: Elizabeth Castro Performed by: anesthesiologist and other anesthesia staff Indications and Patient Condition Preoxygenated: yes Patient position: sniffing Difficult Mask: No Indications for airway management: anesthesia anesthesia circuit Method: asleep Cricoid Pressure: Yes Final Airway Details Final airway type: endotracheal airway Final Endotracheal Airway: ETT Cuffed: yes Successful intubation technique: video laryngoscopy Devices used: Glidescope Endotracheal tube insertion site: oral Blade size: #3 ETT size (mm): 7.0 Measured from: teeth Measurement (cm): 21 Placement verified by: chest auscultation Cormack-Lehane Classification: grade I - full view of glottis Number of attempts at approach: 2 Ventilation between attempts: BVM Other Attempts Unsuccessful attempted endotracheal techniques: direct laryngoscopy Failed airway: no Unrecognized esophageal intubation: no Airway not difficult Comments DR EMMANUEL INTUBATED WITH PHILLYKRISTYN STEPHENS. FIRST ATTEMPT DL - DIFFICULT TO VISUALIZE GLOTTIS. FULL VIEW WITH GLIDESCOPE. SAT 100% CONTINUOUSLY. SIGNATURE: Elizabeth Castro, HALI.SCIENTIFIC DIRECTOR PATIENT NAME: Honey Montes DATE: August 31, 2020 TIME: 2:49 PM CSN: [id number] [facility] 08-31-2020 Note HNO ID: [id number] Author: Sahil Navarro Service: ? 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 Reason for block: post-op pain management/at surgeon's request and pain service Staffing Anesthesiologist: Sahil Navarro Performed by: anesthesiologist Preparation Sterility Preparation: hand hygiene performed prior to procedure, surgical cap used, mask used, sterile drape used during line insertion, skin prep agent completely dried prior to procedure Sterility Technique Not Completely Performed Due to Extreme Emergency: No Site Prep: Chloraprep Pre-Procedure Neuro Exam Location: TRUNK Sensory: intact Motor: intact Procedure Details Patient Position: sitting Monitoring: Pulse OX, EKG and NIBP Block Type Trunk: paravertebral block Multiple Levels: Yes Left Sensory Level: T8 Right Sensory Level: T8 Laterality: bilateral Injection Technique: catheter Ultrasound Guided: Yes Image in Chart: yes Local Infiltration: Yes Needle Needle Type: echogenic and Tuohy Needle Gauge: 18 G Needle Length: 10 cm Needle Localization: ultrasound and anatomical landmarks Needle Insertion Depth: 3 cm Catheter Type: E-Cath Plus Catheter Size: 20 G Catheter at Skin Depth: 10 cm Needle Insertion Depth: 3 cm Multiple Catheters Used: Yes Second Catheter at Skin Depth: 10 cm Assessment Injection assessment: negative aspiration, no paresthesia on injection, incremental injection and local visualized surrounding nerve on ultrasound Paresthesia: none Post-Procedure Neuro Exam Expected Regional Anesthesia: Yes Medications Administered Ropivacaine (PF) 5 mg/mL (0.5 %) injection (NAROPIN), 20 mL Comments Pleural sliding present pre and post procedure, negative aspirate, one attempt per side, good pleural depression visualized with injection. Patient tolerated procedure well. 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 History of bariatric surgery 04/20/2020 Gastrointestinal hemorrhage, unspecified 07/04/2 020 09/13/2020 Last Assessment & Plan: Assessment: Had in the past, monitored per PCP documented as of this encounter (statuses as of 02/04/2022) [facility] History of Past illness Narrative* Problem Noted Date Resolved Date 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 History of bariatric surgery 04/20/2020 Gastrointestinal hemorrhage, unspecified 07/04/2 020 09/13/2020 Last Assessment & Plan: Assessment: Had in the past, monitored per PCP documented as of this encounter (statuses as of 02/07/2022) [address]16-2020 History of Past illness Narrative* Problem Noted Date Resolved Date 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 History of bariatric surgery 04/20/2020 Gastrointestinal hemorrhage, unspecified 07/04/2 020 09/13/2020 Last Assessment & Plan: Assessment: Had in the past, monitored per PCP documented as of this encounter (statuses as of 04/06/2022) [address]16-2020 History of Past illness Narrative* Problem Noted Date Resolved Date 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 History of bariatric surgery 04/20/2020 Gastrointestinal hemorrhage, unspecified 07/04/2 020 09/13/2020 Last Assessment & Plan: Assessment: Had in the past, monitored per PCP documented as of this encounter (statuses as of 2022) [address]16-2020 History of Past illness Narrative* Problem Noted Date Resolved Date 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 History of bariatric surgery 04/20/2020 Gastrointestinal hemorrhage, unspecified 07/04/2 020 09/13/2020 Last Assessment & Plan: Assessment: Had in the past, monitored per PCP documented as of this encounter (statuses as of 12/05/2022) [facility] History of Past illness Narrative* Problem Noted Date Diagnosed Date Resolved Date Small bowel cancer 08/31/2020 0 History of bariatric surgery 04/20/2020 05/28/2020 Gastrointestinal hemorrhage, unspecified 04/18/2020 09/13/2020 Last Assessment & Plan: Assessment: Had in the past, monitored per PCP documented as of this encounter (statuses as of 06/17/2023) [facility] History of Past illness Narrative* Problem Noted Date Diagnosed Date Resolved Date Small bowel cancer 08/31/2020 0 History of bariatric surgery 04/20/2020 05/28/2020 Gastrointestinal hemorrhage, unspecified 04/18/2020 09/13/2020 Last Assessment & Plan: Assessment: Had in the past, monitored per PCP documented as of this encounter (statuses as of 07/12/2023) [place] [address]-16-2020 History of Past illness Narrative* Problem Noted Date Diagnosed Date Resolved Date Small bowel cancer 08/31/2020 0 History of bariatric surgery 04/20/2020 05/28/2020 Gastrointestinal hemorrhage, unspecified 04/18/2020 09/13/2020 Last Assessment & Plan: Assessment: Had in the past, monitored per PCP documented as of this encounter (statuses as of 08/08/2023) [facility] Diagnosis Special screening for malignant neoplasms, colon- Primary [facility] Diagnosis Easy fatigability- Primary Other malaise and fatigue General weakness Other malaise and fatigue documented in this encounter [employer] Phone: evaluation note* Diagnosis 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, unspecified portion Perforated ulcer (HCC) Chronic or unspecified peptic ulcer, unspecified site, with perforation, without mention of obstruction [facility] encounter [facility]* Diagnosis Chest pain, unspecified type documented in this encounter [facility] [employer] Phone: evaluation note* Diagnosis Chest pain- Primary Chest pain, unspecified Type 2 diabetes mellitus, without long-term current use of insulin (HCC) Smoking Tobacco use disorder History of GI bleed Personal history of other diseases of digestive system History of breast cancer Personal history of malignant neoplasm of breast HTN (hypertension) Unspecified essential hypertension Dyslipidemia Other and unspecified hyperlipidemia Coronary artery disease involving [place] coronary artery with unstable angina pectoris (HCC) Chronic pain syndrome Constipation Unspecified constipation History of subarachnoid hemorrhage Personal history of other diseases of circulatory system Chronic diastolic (congestive) heart failure (HCC) Thrombocytosis Essential thrombocythemia 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) Underweight documented in this encounter [facility] [employer] Phone: evaluation note* Diagnosis 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, unspecified portion documented in this encounter [facility] noteNo assessment information [facility] Work Phone: Evaluation note* Diagnosis Abdominal distension- Primary Flatulence, eructation, and gas pain History of partial gastrectomy Gastric ulcer with perforation, unspecified chronicity (HCC) Hx of cholecystectomy Other acquired absence of organ Narcotic bowel syndrome (HCC) documented in this encounter [facility]* Diagnosis COVID-19- Primary COVID-19 Generalized weakness Hypokalemia Hypopotassemia Diabetes mellitus type 2, controlled ([facility]-HCC) Type II or unspecified type diabetes mellitus without mention of complication, not stated as uncontrolled Dyslipidemia Other and unspecified hyperlipidemia Essential hypertension Unspecified essential hypertension Hypokalemia Hypopotassemia Severe malnutrition (CMS-HCC) Nutritional marasmus Generalized weakness Anxiety disorder, unspecified Chronic diastolic (congestive) heart failure (CMS-HCC) Smoker Tobacco use disorder [facility]* Attachments The following attachments cannot be sent through Care Everywhere. * Rib Fracture Discharge Instructions (Senegalese) * COVID-19 Discharge Instructions ([place]egalese) [facility] (narrative)* Diagnostic Procedure Only (Routine) - Pending Review Specialty Diagnoses / Procedures Referred By Contac t Referred To Contact XR IMAGING Diagnoses Neuroendocrine carcinoma of small bowel (HCC) Procedures XR GI SMALL BOWEL FOLLOW-THRU RADIOLOGIC SMALL INTESTINE [place] [address] [address] [address] [place] [address] Referral ID Status Reason Start Date Expiration Date Visits Requested Visits Authorized [id number] Pending Review Auto-Generat ed Referral 06/15/2023 07/14/2024 1 1 * Diagnostic Procedure Only (Routine) - Pending Review Specialty Diagnoses / Procedures Referred By Contac t Referred To Contact XR IMAGING Diagnoses Neuroendocrine carcinoma of small bowel (HCC) Procedures XR UPPER GI SINGLE CONTRAST RADIOLOGIC EXAM UPR GI TR[place] [address] [place] [id number] [place] [address] Referral ID Status Reason Start Date Expiration Date Visits Requested Visits Authorized [id number] Pending Review Auto-Generat ed Referral 06/15/2023 07/14/2024 1 1 [facility] Outpatient Procedure (Routine) - Pending Review Specialty Diagnoses / [facility] Diagnoses Abdominal distension History of partial gastrectomy Gastric ulcer with perforation, unspecified chronicity (HCC) Hx of cholecystectomy Procedures EGD DIAGNOSTIC ESOPHAGOGASTRODUODENOSCOPY [place] [address] [place] [address] [facility] [address] [place] [address] Referral ID Status Reason Start Date Expiration Date Visits Requested Visits Authorized [id number] Pending Review Auto-Generat ed Referral 07/11/2023 07/11/2024 1 1 [facility] Summary Purpose Family History No Family History Records FoundNo Family History Records FoundNo Family History Records FoundNo Family History Records FoundNo Family History Records FoundNo Family History Records FoundNo Family History Records FoundNo Family History Records Found Advance Directives No Advanced Directives Records FoundDocuments on File Type Date Recorded 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 Worker Expl anation Advance Directive(s) 11/30/2020 3:58 PM Advance Directive(s) 09/11/2020 7:49 PM Advance Directive(s) 08/22/2020 6:32 PM Advance Directive(s) 07/13/2020 5:54 AM Advance Directive(s) 07/08/2020 7:52 AM Documents on File Type Date Recorded 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 Worker Expl anation ACP-Advance Directive ACP-Power of Peanut Cleaner Latest Code Status on File Code Status Date Activated Date Inactivated Comments Full Code 04/26/2022 12:14 AM Full Code 04/18/2020 6:45 PM 04/23/2020 5:45 PM Full Code 09/30/2018 7:09 AM 10/01/2018 5:32 PM Full Code 05/21/2018 9:35 AM 05/22/2018 2:51 AM Full Code 05/21/2018 8:34 AM 05/21/2018 9:35 AM Documents on File Type Date Recorded 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 anation Advance Directive(s) 11/30/2020 3:58 PM Advance Directive(s) 09/11/2020 7:49 PM Advance Directive(s) 08/22/2020 6:32 PM Advance Directive(s) 07/13/2020 5:54 AM Advance Directive(s) 07/08/2020 7:52 AM Latest Code Status on File Code Status Date Activated Date Inactivated Comments Full Code 06/11/2022 2:45 AM Latest Code Status on File Code Status Date Activated Date Inactivated Comments Full Code 06/12/2022 11:58 PM Full Code 04/26/2022 12:14 AM 04/26/2022 3:11 AM Full Code 04/18/2020 6:45 PM 04/23/2020 5:45 PM Full Code 09/30/2018 7:09 AM 10/01/2018 5:32 PM Full Code 05/21/2018 9:35 AM 05/22/2018 2:51 AM Advance Directive Response Recorded Date/ Time Advance Directives No June 4:11pm Latest Code Status on File Code Status Date Activated Date Inactivated Comments Full Code 10/20/2023 2:02 AM Code Status History Code Status Date Activated Date Inactivated Comments Full Code 06/06/2023 10:02 AM 06/06/2023 1:29 PM Full Code 08/24/2022 11:55 PM 08/27/2022 3:03 PM Reason for Referral Specialty Diagnoses / Procedures Referred By Contac t Referred To Contact CT IMAGING Diagnoses Perforated ulcer (HCC) Procedures CT ABD/PEL W IVCON CT ABD & PEL[place] W/[place] [address] [address] [facility] [address] [place] [address] Ct Imaging Referral ID Status Reason Start Date Expiration Date Visits Requested Visits Authorized [id number] Authorized Auto-Generat ed Referral 04/28/2022 05/28/2023 1 1 Chief Complaint and Reason for Visit Chief Complaint [id number] Additional Source Comments INFORMATION SOURCE (unrecogn ized section and content) DATE CREATED AUTHOR 04/14/2021 [facility] DATE CREATED AUTHOR AUTHOR'S ORGANIZ ATION 06/15/2022 [facility] DATE CREATED AUTHOR AUTHOR'S ORGANIZ ATION 06/16/2022 [facility] DATE CREATED AUTHOR AUTHOR'S ORGANIZ ATION 09/19/2022 [facility] DATE CREATED AUTHOR AUTHOR'S ORGANIZ ATION 07/05/2023 [facility] DATE CREATED AUTHOR AUTHOR'S ORGANIZ ATION 09/02/2023 [facility] DATE CREATED AUTHOR AUTHOR'S ORGANIZ ATION 09/14/2023 [facility] DATE CREATED AUTHOR AUTHOR'S ORGANIZ ATION 10/29/2023 [facility] Source Comments (unrecognize d section and content) In the event this informatio n is protected by the Federal Confidentiality of Alcohol and Drug Abuse Patient Records regulations: The Federal rules restrict any use of the information to criminally investigate or prosecute any alcohol or drug abuse patient.[facility] the event this information is protected by the Federal Confidentiality of Alcohol and Drug Abuse Patient Records regulations: The Federal rules restrict any use of the information to criminally investigate or prosecute any alcohol or drug abuse patient.[facility] Hospital[facility] the event this information is protected by the Federal Confidentiality of Alcohol and Drug Abuse Patient Records regulations: The Federal rules restrict any use of the information to criminally investigate or prosecute any alcohol or drug abuse patient.[facility] the event this information is protected by the Federal Confidentiality of Alcohol and Drug Abuse Patient Records regulations: The Federal rules restrict any use of the information to criminally investigate or prosecute any alcohol or drug abuse patient.[facility] the event this information is protected by the Federal Confidentiality of Alcohol and Drug Abuse Patient Records regulations: The Federal rules restrict any use of the information to criminally investigate or prosecute any alcohol or drug abuse patient.[facility] the event this information is protected by the Federal Confidentiality of Alcohol and Drug Abuse Patient Records regulations: The Federal rules restrict any use of the information to criminally investigate or prosecute any alcohol or drug abuse patient.[facility] Hospital[facility] the event this information is protected by the Federal Confidentiality of Alcohol and Drug Abuse Patient Records regulations: The Federal rules restrict any use of the information to criminally investigate or prosecute any alcohol or drug abuse patient.[facility] Hospital[facility] the event this information is protected by the Federal Confidentiality of Alcohol and Drug Abuse Patient Records regulations: The Federal rules restrict any use of the information to criminally investigate or prosecute any alcohol or drug abuse patient.[facility] Hospital[facility] the event this information is protected by the Federal Confidentiality of Alcohol and Drug Abuse Patient Records regulations: The Federal rules restrict any use of the information to criminally investigate or prosecute any alcohol or drug abuse patient.[facility] Care Teams (unrecognized sec tion and content) Cornice Upholsterer Relationship Specialty Start Date End Date Corina Cook MD [address] [place] [phone] PCP - General Family Practice 11/30/20 Cornice Upholsterer Relationship Specialty Start Date End Date Corina Cook MD [address] [place] [phone] PCP - General Family Practice 11/30/20 Cornice Upholsterer Relationship Specialty Start Date End Date Corina Cook MD [address] [place] [phone] PCP - General Family Practice 11/30/20 Cornice Upholsterer Relationship Specialty Start Date End Date Corina Cook [address] [place] [id number] PCP - General Family Medicine 03/26/18 Cornice Upholsterer Relationship Specialty Start Date End Date Corina Cook MD [address] [place] [phone] PCP - General Family Practice 11/30/20 Cornice Upholsterer Relationship Specialty Start Date End Date Corina Cook [address] [place] [id number] PCP - General Family Medicine 06/10/22 Cornice Upholsterer Relationship Specialty Start Date End Date Corina Cook [address] [place] [phone] PCP - General Family Medicine 03/26/18 Cornice Upholsterer Relationship Specialty Start Date End Date Corina Cook MD [address] [place] [address] PCP - General Family Medicine 11/30/20 Cornice Upholsterer Relationship Specialty Start Date End Date Corina Cook MD [address] [phone] PCP - General Family Medicine 11/30/20 Team Status: Active Member Role Status Dates NON STAFF Primary Care Provider Active Team Status: Inactive Member Role Status Dates Jr Sinha MD Attending Provider Active NON STAFF Primary Care Provider Active Cornice Upholsterer Relationship Specialty Start Date End Date Corina Cook MD [address] [place] [id number] PCP - General Family Medicine 11/30/20 Cornice Upholsterer Relationship Specialty Start Date End Date Corina Cook MD [address] [address] PCP - General Family Medicine 11/30/20 Cornice Upholsterer Relationship Specialty Start Date End Date Corina Cook MD [address] [address] PCP - General Family Medicine 08/25/22 Reason for Visit (unrecogniz ed section and content) Reason Comments incorrectly scheduled Reason Comments Patient Update Reason Comments Patient Question Reason Comments Fatigue Palpitations hx stents one month ago Dizziness Reason Comments Established Patient Reason Comments Chest Pain Specialty Diagnoses / Procedures Referred By Contac t Referred To Contact [facility] [address] [place] [address] Referral ID Status Reason Start Date Expiration Date Visits Re quested Visits Authorized [id number] 1 1 Reason Comments Education Of Patient/family Reason Comments Established Patient Reason Comments Abdominal Pain Reason Comments Medical Screening Specialty Diagnoses / Procedures Referred By Contac t Referred To Contact Diagnoses Hypokalemia Weakness Generalized weakness COVID-19 Tyree Crook MD [address] [facility] [address], [facility] [address] [place] [address] Referral ID Status Reason Start Date Expiration Date Visits Re quested Visits Authorized [id number] 1 1 Scheduled Active and Recently Administ ered Medications (unrecognized section and content) Medication Order 04/24/2022 04/25/2022 04/26/2022 ALPRAZolam (XANAX) tablet 1 mg 1 mg, Oral, 3 TIMES DAILY, First dose on Mon04/26/22 at 0900, Until Discontinued 0900 (Due)1400 (Due) 2100 (Due) atorvastatin (LIPITOR) tablet 80 mg 80 mg, Oral, NIGHTLY, First dose on Mon04/26/22 at 0015, Until Discontinued 14 (Due)2099 (Due) citalopram (CELEXA) tablet 20 mg 20 mg, Oral, NIGHTLY, First dose on Mon04/26/22 at 0015, Until Discontinued 14 (Due)2099 (Due) clopidogrel (PLAVIX) tablet 75 mg 75 mg, Oral, DAILY, First dose on Mon04/26/22 at 0900, Until Discontinued 899 (Due) docusate sodium (COLACE) capsule 100 mg 100 mg, Oral, 2 TIMES DAILY, First dose on Mon04/26/22 at 0015, Until Discontinued 14 (Due)09 (Due) 2100 (Due) famotidine (PEPCID) tablet 20 mg 20 mg, Oral, 2 TIMES DAILY, First dose on Mon04/26/22 at 0015, Until Discontinued 14 (Due)899 (Due) 2100 (Due) gabapentin (NEURONTIN) capsule 300 mg 300 mg, Oral, 2 TIMES DAILY, First dose on Mon04/26/22 at 0800, Until Discontinued 0800 (Due)1400 (Due) metFORMIN (GLUCOPHAGE) tablet 1,000 mg 1,000 mg, Oral, 2 TIMES DAILY WITH MEALS, First dose on Mon04/26/22 at 0800, Until Discontinued 0800 (Due)1700 (Due) metoprolol tartrate (LOPRESSOR) tablet 25 mg 25 mg, Oral, 2 TIMES DAILY, First dose on Mon04/26/22 at 0015, Until Discontinued 14 (Due)09 (Due) 2099 (Due) nitroGLYCERIN (NITROSTAT) SL tablet 0.4 mg (COMPLETED) 0.4 mg, SubLINGual, ONCE, 1 dose, On Mon04/25/22 at 2200, Place 1 tablet under tongue upon chest pain, wait 5 minutes and may repeat up to 3 doses in 15 minutes. Do not crush or break. 2154 (Given - Provider: Nadia Shields RN) sertraline (ZOLOFT) tablet 50 mg 50 mg, Oral, DAILY, First dose on Mon04/26/22 at 0900, Until Discontinued 899 (Due) sodium chloride flush 0.9 % injection 5-40 mL 5-40 mL, IntraVENous, EVERY 12 HOURS SCHEDULED (2 times per day), First dose on Mon04/26/22 at 0900, Until Discontinued, For Line Patency: Peripheral IV = 5 mL; Midline or Central Line = 10 mL/lumen. If following IV push medication, administer flush at same rate as the IV push. Flush volume is determined by type of infusion therapy being given. For non-viscous solutions use: Peripheral IV = 5 mL Midline or Central Line = 10 mL/lumen For viscous solutions (i.e. blood components, parenteral nutrition, contrast media, or after obtaining blood sample) use: Peripheral IV = 10 mL Midline or Central Line = 20 mL/lumen 899 (Due)2099 (Due) tamoxifen (NOLVADEX) tablet 20 mg 20 mg, Oral, DAILY, First dose on Mon04/26/22 at 0900, Until Discontinued, Hazardous Medication -- Refer to facility policy for handling and disposal. 899 (Due) traMADol (ULTRAM) tablet 50 mg 50 mg, Oral, 2 TIMES DAILY, First dose on Mon04/26/22 at 0015, Until Discontinued 14 (Due)899 (Due) 2099 (Due) PRN Medication Order 04/24/2022 04/25/2022 04/26/2022 0.9 % sodium chloride infusion IntraVENous, at 5-250 mL/hr, PRN, if patient receiving piggyback infusions and maintenance fluids are not ordered OR KVO fluids to protect IV site / prevent frequent line interruptions/ long duration, Starting on Mon04/26/22 at 0014, For piggyback infusion, administer at same rate as piggyback for a total of 25 mL. Enter 25 mL into dose field and piggyback rate into rate field of order. If piggyback is infusing at a rate less than 100 mL/hr, enter 25 mL into dose field and 100 mL/hr into rate field of order. For KVO fluids, enter rate of 20 mL/hr or less into rate field of order. acetaminophen (TYLENOL) tablet 650 mg 650 mg, Oral, EVERY 4 HOURS PRN, Starting on Mon04/26/22 at 0014, Until Discontinued, Pain Mild (1-3), Pain Mild (1-3) or Fever greater than 100.5 F (38 C), If acetaminophen and ibuprofen are both ordered PRN for mild pain, may administer together. ondansetron (ZOFRAN) injection 4 mg(Linked Group 1) 4 mg, IntraVENous, EVERY 6 HOURS PRN, Starting on Mon04/26/22 at 0014, Until Discontinued, Nausea, Vomiting, Administer if oral route cannot be used. ondansetron (ZOFRAN-ODT) disintegrating tablet 4 mg(Linked Group 1) 4 mg, Oral, EVERY 8 HOURS PRN, Starting on Mon04/26/22 at 0014, Until Discontinued, Nausea, Vomiting sodium chloride flush 0.9 % injection 5-40 mL 5-40 mL, IntraVENous, PRN, Starting on Mon04/26/22 at 0014, Until Discontinued, Line Care, After every IV line use, For Line Patency: Peripheral IV = 5 mL; Midline or Central Line = 10 mL/lumen. If following IV push medication, administer flush at same rate as the IV push. Flush volume is determined by type of infusion therapy being given. For non-viscous solutions use: Peripheral IV = 5 mL Midline or Central Line = 10 mL/lumen For viscous solutions (i.e. blood components, parenteral nutrition, contrast media, or after obtaining blood sample) use: Peripheral IV = 10 mL Midline or Central Line = 20 mL/lumen zolpidem (AMBIEN) tablet 10 mg 10 mg, Oral, NIGHTLY PRN, Starting on Mon04/26/22 at 2100, Until Discontinued, Sleep Linked Groups Order Group 1: ondansetron (ZOFRAN-ODT) disintegrating tablet 4 mgJump to med 4 mg, Oral, EVERY 8 HOURS PRN, Starting on Mon04/26/22 at 0014, Until Discontinued, Nausea, Vomiting Or ondansetron (ZOFRAN) injection 4 mgJump to med 4 mg, IntraVENous, EVERY 6 HOURS PRN, Starting on Mon04/26/22 at 0014, Until Discontinued, Nausea, Vomiting
Administer if oral route cannot be used.
Scheduled Medication Order 06/09/2022 06/10/2022 06/11/2022 0.9 % sodium chloride bolus (COMPLETED) 1,000 mL, IntraVENous, at 1,000 mL/hr, Administer over 1 Hours, ONCE, On Mon06/10/22 at 1545, For 1 dose 1553 (New Bag - Provider: Aneta Shields RN)1656 (Stopped - Provider: Aneta Shields RN) aspirin chewable tablet 243 mg (COMPLETED) 243 mg, Oral, ONCE, 1 dose, On Mon06/10/22 at 1545 1546 (Given - Provider: Aneta Shields RN) atorvastatin (LIPITOR) tablet 80 mg 80 mg, Oral, DAILY, First dose on Mon06/11/22 at 2100, Until Discontinued 2100 (Due) citalopram (CELEXA) tablet 20 mg 20 mg, Oral, DAILY, First dose on Mon06/11/22 at 0900, Until Discontinued 0859 (Given - Provid er: Luciana Nickerson RN) clopidogrel (PLAVIX) tablet 75 mg 75 mg, Oral, DAILY, First dose on Mon06/11/22 at 0900, Until Discontinued 1034 (Given - Provid er: Luciana Nickerson RN - Comment: NPO) docusate sodium (COLACE) capsule 100 mg 100 mg, Oral, 2 TIMES DAILY, First dose on 06/11/22 at 0900, Until Discontinued, Do not crush or break. 1034 (Given - Provid er: Luciana Nickerson RN - Comment: NPO)2100 (Due) enoxaparin (LOVENOX) injection 40 mg 40 mg, SubCUTAneous, DAILY, First dose on 06/11/22 at 0900, Until Discontinued, Indication of Use: Prophylaxis-DVT/PE 1043 (Not Given - Provider: Luciana Nickerson RN - Reason: Patient/family refused - Comment: Instructed regarding DVT prophylaxis.) fentaNYL (SUBLIMAZE) injection 50 mcg (COMPLETED) 50 mcg, IntraVENous, ONCE, 1 dose, On Mon06/10/22 at 1545, If oral and IV narcotics ordered, use oral first and only use IV if oral is ineffective or cannot take oral. Do Not give oral and IV within 1 hour of each other unless specifically ordered. 1548 (Given - Provider: Aneta Shields RN) gabapentin (NEURONTIN) tablet 600 mg 600 mg, Oral, Nightly, First dose on Mon06/11/22 at 2100, Until Discontinued 2100 (Due) magnesium sulfate 2000 mg in 50 mL IVPB premix (COMPLETED) 2,000 mg, IntraVENous, at 25 mL/hr, Administer over 2 Hours, ONCE, On Mon06/10/22 at 2230, For 1 dose, Recommended infusion rate of 1 gram/hour. 2228 (New Bag - Provider: Aneta Shields RN) 0030 (Stopped - Provider: Aneta Shields RN) metFORMIN (GLUCOPHAGE) tablet 500 mg 500 mg, Oral, 2 TIMES DAILY WITH MEALS, First dose on Mon06/11/22 at 0800, Until Discontinued 1034 (Given - Provid er: Luciana Nickerson RN - Comment: NPO)1700 (Due) midodrine (PROAMATINE) tablet 10 mg 10 mg, Oral, 3 TIMES DAILY, First dose on Mon06/11/22 at 0900, Until Discontinued, Do not give after 1800 or within 4 hrs of bedtime. 1034 (Given - Provid er: Luciana Nickerson RN - Comment: NPO)1400 (Due)2100 (Due) morphine injection 4 mg (COMPLETED) 4 mg, IntraVENous, ONCE, 1 dose, On Mon06/10/22 at 1745, If oral and IV narcotics ordered, use oral first and only use IV if oral is ineffective or cannot take oral. Do Not give oral and IV within 1 hour of each other unless specifically ordered. 181 (Given - Provider: Aneta Shields RN) ondansetron (ZOFRAN) injection 4 mg (COMPLETED) 4 mg, IntraVENous, ONCE, 1 dose, On Mon06/10/22 at 1545 1551 (Given - Provider: Aneta Shields RN) pantoprazole (PROTONIX) tablet 40 mg 40 mg, Oral, DAILY BEFORE BREAKFAST, First dose on Mon06/11/22 at 0700, Until Discontinued, Do not crush or break. Substituted for Omeprazole (PRILOSEC). 0859 (Given - Provid er: Luciana Nickerson RN) potassium chloride (KLOR-CON M) extended release tablet 40 mEq (COMPLETED) 40 mEq, Oral, ONCE, 1 dose, On 06/10/22 at 2230, Do not crush, chew, or suck on tablet. Tablet may also be broken in half and each half swallowed separately. 2232 (Given - Provider: Aneta Shields RN) sodium chloride flush 0.9 % injection 5-40 mL 5-40 mL, IntraVENous, EVERY 12 HOURS SCHEDULED (2 times per day), First dose on 06/11/22 at 0900, Until Discontinued, For Line Patency: Peripheral IV = 5 mL; Midline or Central Line = 10 mL/lumen. If following IV push medication, administer flush at same rate as the IV push. Flush volume is determined by type of infusion therapy being given. For non-viscous solutions use: Peripheral IV = 5 mL Midline or Central Line = 10 mL/lumen For viscous solutions (i.e. blood components, parenteral nutrition, contrast media, or after obtaining blood sample) use: Peripheral IV = 10 mL Midline or Central Line = 20 mL/lumen 1039 (Given - Provid er: Luciana Nickerson RN)2100 (Due) PRN Medication Order 06/09/2022 06/10/2022 06/11/2022 0.9 % sodium chloride infusion IntraVENous, at 5-250 mL/hr, PRN, if patient receiving piggyback infusions and maintenance fluids are not ordered OR KVO fluids to protect IV site / prevent frequent line interruptions/ long duration, Starting on 06/11/22 at 0245, For piggyback infusion, administer at same rate as piggyback for a total of 25 mL. Enter 25 mL into dose field and piggyback rate into rate field of order. If piggyback is infusing at a rate less than 100 mL/hr, enter 25 mL into dose field and 100 mL/hr into rate field of order. For KVO fluids, enter rate of 20 mL/hr or less into rate field of order. acetaminophen (TYLENOL) tablet 1,000 mg 1,000 mg, Oral, EVERY 8 HOURS PRN, Starting on 06/11/22 at 0245, Until Discontinued, Pain Mild (1-3), Pain Mild (1-3) or Fever greater than 100.5 F (38 C), If acetaminophen and ibuprofen are both ordered PRN for mild pain, may administer together. ALPRAZolam (XANAX) tablet 1 mg 1 mg, Oral, 3 TIMES DAILY PRN, Starting on 06/11/22 at 0245, Until Discontinued, Anxiety 0859 (Given - Provid er: Luciana Nickerson RN) morphine injection 4 mg 4 mg, IntraVENous, EVERY 4 HOURS PRN, Starting on Mon06/10/22 at 2250, Until Discontinued, Pain Severe (7-10), If oral and IV narcotics ordered, use oral first and only use IV if oral is ineffective or cannot take oral. Do Not give oral and IV within 1 hour of each other unless specifically ordered. 2253 (Given - Provider: Aneta Shields RN) 1039 (Given - Provider: Luciana Nickerson RN) ondansetron (ZOFRAN) injection 4 mg(Linked Group 1) 4 mg, IntraVENous, EVERY 6 HOURS PRN, Starting on 06/11/22 at 0245, Until Discontinued, Nausea, Vomiting, Administer if oral route cannot be used. ondansetron (ZOFRAN-ODT) disintegrating tablet 4 mg(Linked Group 1) 4 mg, Oral, EVERY 8 HOURS PRN, Starting on 06/11/22 at 0245, Until Discontinued, Nausea, Vomiting oxyCODONE (ROXICODONE) immediate release tablet 2.5 mg(Linked Group 2) 2.5 mg, Oral, EVERY 4 HOURS PRN, Starting on 06/11/22 at 0247, Until Discontinued, Pain Severe (7-10) oxyCODONE-acetaminophen (PERCOCET) 5-325 MG per tablet 1 tablet(Linked Group 2) Mg/kg dosing is based on the oxycodone component., 1 tablet, Oral, EVERY 4 HOURS PRN, Starting on 06/11/22 at 0247, Until Discontinued, Pain Severe (7-10), Maximum dose of acetaminophen is 4000 mg from all sources in 24 hours. sodium chloride flush 0.9 % injection 5-40 mL 5-40 mL, IntraVENous, PRN, Starting on 06/11/22 at 0245, Until Discontinued, Line Care, After every IV line use, For Line Patency: Peripheral IV = 5 mL; Midline or Central Line = 10 mL/lumen. If following IV push medication, administer flush at same rate as the IV push. Flush volume is determined by type of infusion therapy being given. For non-viscous solutions use: Peripheral IV = 5 mL Midline or Central Line = 10 mL/lumen For viscous solutions (i.e. blood components, parenteral nutrition, contrast media, or after obtaining blood sample) use: Peripheral IV = 10 mL Midline or Central Line = 20 mL/lumen Linked Groups Order Group 1: ondansetron (ZOFRAN-ODT) disintegrating tablet 4 mgJump to med 4 mg, Oral, EVERY 8 HOURS PRN, Starting on 06/11/22 at 0245, Until Discontinued, Nausea, Vomiting Or ondansetron (ZOFRAN) injection 4 mgJump to med 4 mg, IntraVENous, EVERY 6 HOURS PRN, Starting on 06/11/22 at 0245, Until Discontinued, Nausea, Vomiting
Administer if oral route cannot be used.
Group 2: oxyCODONE-acetaminophen (PERCOCET) 5-325 MG per tablet 1 tabletJump to med Mg/kg dosing is based on the oxycodone component.
1 tablet, Oral, EVERY 4 HOURS PRN, Starting on 06/11/22 at 0247, Until Discontinued, Pain Severe (7-10)
Maximum dose of acetaminophen is 4000 mg from all sources in 24 hours.
And oxyCODONE (ROXICODONE) immediate release tablet 2.5 mgJump to med 2.5 mg, Oral, EVERY 4 HOURS PRN, Starting on 06/11/22 at 0247, Until Discontinued, Pain Severe (7-10) Scheduled Medication Order 06/13/2022 06/14/2022 06/15/2022 ALPRAZolam (XANAX) tablet 1 mg 1 mg, Oral, 3 TIMES DAILY, First dose on 06/13/22 at 0900, Until Discontinued 0847 (Given - Provider: Lelia Godoy RN)1357 (Given - Provider: Lelia Godoy RN)2038 (Given - Provider: Sharita Gtz RN) 0915 (Given - Provider: Aneta Jennings RN)1501 (Given - Provider: Aneta Jennings RN)2009 (Given - Provider: Jyoti Hanson RN) 101 (Given - Provider: Praneeth Harmon, KVNG)1400 (Due)2100 (Due) amLODIPine (NORVASC) tablet 5 mg 5 mg, Oral, NIGHTLY, First dose on Mon06/14/22 at 2100, Until Discontinued 2009 (Given - Provider: Jyoti Hanson RN) 2100 (Due) aspirin chewable tablet 81 mg 81 mg, Oral, DAILY, First dose on Mon06/13/22 at 0900, Until Discontinued 0847 (Given - Provider: Lelia Godoy RN) 09 (Given - Provider: Aneta Jennings RN) 101 (Given - Provider: Praneeth Harmon, KVNG) atorvastatin (LIPITOR) tablet 80 mg 80 mg, Oral, NIGHTLY, First dose on Mon06/13/22 at 0015, Until Discontinued 45 (Not Given - Provider: Sharita Gtz RN - Reason: Patient took at home - Comment: pt refused)2037 (Given - Provider: Sharita Gtz RN) 2010 (Given - Provider: Jyoti Hanson RN) 2099 (Due) citalopram (CELEXA) tablet 20 mg 20 mg, Oral, NIGHTLY, First dose on Mon06/13/22 at 2100, Until Discontinued 2037 (Given - Provider: Sharita Gtz RN) 2010 (Given - Provider: Jyoti Hanson RN) 2100 (Due) clopidogrel (PLAVIX) tablet 75 mg 75 mg, Oral, DAILY, First dose on Mon06/13/22 at 0900, Until Discontinued 0847 (Given - Provider: Lelia Godoy RN) 09 (Given - Provider: Aneta Jennings RN) 101 (Given - Provider: Praneeth Harmon, KVNG) docusate sodium (COLACE) capsule 100 mg 100 mg, Oral, 2 TIMES DAILY, First dose on Mon06/13/22 at 0900, Until Discontinued 0847 (Given - Provider: Lelia Godoy RN)2037 (Given - Provider: Sharita Gtz RN) 0914 (Given - Provider: Aneta Jennings RN)2011 (Given - Provider: Jyoti Hanson RN) 1019 (Given - Provider: Praneeth Harmon RN)2100 (Due) enoxaparin (LOVENOX) injection 40 mg 40 mg, SubCUTAneous, DAILY, First dose on Mon06/13/22 at 0900, Until Discontinued, Indication of Use: Prophylaxis-DVT/PE, Please confirm anticoagulation with cardiology when initial consultation is called. Do not start DVT prophylactic dose of Lovenox if another/alternaitve anticoagulation regime is preferred by cardiology. 0842 (Not Given - Provider: Lelia Godoy RN - Reason: Other - Comment: heart cath today) 09 (Given - Provider: Aneta Jennings RN) 102 (Given - Provider: Praneeth Harmon, KVNG) famotidine (PEPCID) tablet 20 mg 20 mg, Oral, 2 TIMES DAILY, First dose on Mon06/13/22 at 0900, Until Discontinued 0847 (Given - Provider: Lelia Godoy RN)2037 (Given - Provider: Sharita Gtz RN) 09 (Given - Provider: Aneta Jennings RN)2011 (Given - Provider: Jyoti Hanson RN) 102 (Given - Provider: Praneeth Harmon RN)2100 (Due) fentaNYL (SUBLIMAZE) injection 50 mcg (COMPLETED) 50 mcg, IntraVENous, ONCE, 1 dose, On Mon06/13/22 at 0045, If oral and IV narcotics ordered, use oral first and only use IV if oral is ineffective or cannot take oral. Do Not give oral and IV within 1 hour of each other unless specifically ordered. 0044 (Given - Provider: Sharita Gtz RN) ferrous sulfate (FE TABS 325) EC tablet 325 mg 325 mg, Oral, DAILY WITH BREAKFAST, First dose on Mon06/15/22 at 0800, Until Discontinued 1019 (Given - Provider: Praneeth Harmon, KVNG) gabapentin (NEURONTIN) capsule 300 mg 300 mg, Oral, 2 TIMES DAILY, First dose on Mon06/13/22 at 0800, Until Discontinued 47 (Given - Provider: Lelia Godoy RN)1357 (Given - Provider: Lelia Godoy RN) 0913 (Given - Provider: Aneta Jennings RN)1501 (Given - Provider: Aneta Jennings RN) 101 (Given - Provider: Praneeth Harmon RN)1400 (Due) gabapentin (NEURONTIN) tablet 600 mg 600 mg, Oral, NIGHTLY, First dose on Mon06/13/22 at 2100, Until Discontinued 2037 (Given - Provider: Sharita Gtz RN) 2011 (Given - Provider: Jyoti Hanson RN) 2100 (Due) insulin lispro (HUMALOG) injection vial 0-4 Units 0-4 Units, SubCUTAneous, 3 TIMES DAILY WITH MEALS, First dose on Mon06/13/22 at 0800, Until Discontinued, Corrective Low Dose Algorithm Glucose: Dose: 70-199 No Insulin 200-249 1 Unit 250-299 2 Units 300-349 3 Units Over 349 4 Units and notify physician 0837 (Not Given - Provider: Lelia Godoy RN - Reason: Order parameters not met)1209 (Not Given - Provider: Lelia Godoy RN - Reason: Order parameters not met)1629 (Not Given - Provider: Lelia Godoy RN - Reason: Order parameters not met) 0852 (Not Given - Provider: Aneta Jennings RN - Reason: Order parameters not met)1332 (Not Given - Provider: Aneta Jennings RN - Reason: Order parameters not met)1816 (Not Given - Provider: Aneta Jennings RN - Reason: Order parameters not met) 1032 (Not Given - Provider: Praneeth Harmon RN - Reason: Order parameters not met)1200 (Due)1700 (Due) insulin lispro (HUMALOG) injection vial 0-4 Units 0-4 Units, SubCUTAneous, NIGHTLY, First dose on Mon06/13/22 at 0015, Until Discontinued, If continuous tube feedings/TPN/NPO, give correction dose based on result, no reduction in dose. If eating or bolus tube feeding: Corrective Bedtime Algorithm Glucose: Dose: 70-299 No Insulin 300-349 4 Units Over 349 4 Units and notify physician 0043 (Not Given - Provider: Sharita Gtz RN - Reason: Order parameters not met - Comment: BS 77)2030 (Not Given - Provider: Sharita Gtz RN - Reason: Order parameters not met - Comment: BS 99) 2024 (Not Given - Provider: Jyoti Hanson RN - Reason: Order parameters not met - Comment: bs 81) 2100 (Due) isosorbide mononitrate (IMDUR) extended release tablet 30 mg 30 mg, Oral, DAILY, First dose on Mon06/13/22 at 0900, Until Discontinued, Do not crush or chew. Hold if sbp<100 0847 (Given - Provider: Lelia Godoy RN) 0914 (Given - Provider: Aneta Jennings RN) 1025 (Given - Provider: Praneeth Harmon, KVNG) magnesium oxide (MAG-OX) tablet 400 mg 400 mg, Oral, DAILY, First dose on Mon06/13/22 at 0900, Until Discontinued 0847 (Given - Provider: Lelia Godoy RN) 0914 (Given - Provider: Aneta Jennings RN) 1019 (Given - Provider: Praneeth Harmon RN) metoprolol tartrate (LOPRESSOR) tablet 25 mg 25 mg, Oral, 2 TIMES DAILY, First dose on Mon06/13/22 at 0900, Until Discontinued, Hold if sbp<95, hr<55 0847 (Given - Provider: Lelia Godoy RN)2037 (Not Given - Provider: Sharita Gtz RN - Reason: Order parameters not met - Comment: HR 55, BP 123/64) 0913 (Given - Provider: Aneta Jennings RN)2012 (Not Given - Provider: Jyoti Hanson RN - Reason: Order parameters not met) 1025 (Given - Provider: Praneeth Harmon RN)2100 (Due) midodrine (PROAMATINE) tablet 10 mg 10 mg, Oral, 3 TIMES DAILY WITH MEALS, First dose on Mon06/13/22 at 0800, Until Discontinued, Do not give after 1800 or within 4 hrs of bedtime. 0857 (Not Given - Provider: Lelia Godoy RN - Reason: Other - Comment: BP 128/65)1217 (Given - Provider: Lelia Godoy RN)1651 (Not Given - Provider: Lelia Godoy RN - Reason: Other - Comment: BP 121/71) 0914 (Given - Provider: Aneta Jennings RN)1501 (Given - Provider: Aneta Jennings RN)1837 (Not Given - Provider: Aneta Jennings RN - Reason: Order parameters not met) 1020 (Given - Provider: Praneeth Harmon RN)1200 (Due)1700 (Due) morphine (MS CONTIN) extended release tablet 30 mg 30 mg, Oral, 2 times daily, First dose on Mon06/13/22 at 0900, Until Discontinued, Do not crush or break. 0847 (Given - Provider: Lelia Godoy RN)2037 (Given - Provider: Sharita Gtz, KVNG) 0915 (Given - Provider: Aneta Jennings RN)2123 (Given - Provider: Jyoti Hanson RN) 1018 (Given - Provider: Praneeth Harmon RN)2100 (Due) pantoprazole (PROTONIX) tablet 40 mg 40 mg, Oral, 2 TIMES DAILY BEFORE MEALS, First dose on Mon06/13/22 at 0700, Until Discontinued, Substituted for pantoporazole (PROTONIX) granules. 0545 (Given - Provider: Sharita Gtz RN)1548 (Not Given - Provider: Lelia Godoy RN - Reason: Pt NPO) 0916 (Given - Provider: Aneta Jennings RN)2012 (Given - Provider: Jyoti Hanson RN) 1020 (Given - Provider: Praneeth Harmon RN)1600 (Due) potassium chloride (MICRO-K) extended release capsule 10 mEq 10 mEq, Oral, DAILY, First dose on Mon06/13/22 at 0900, Until Discontinued, Do not crush or break. 0847 (Given - Provider: Lelia Godoy RN) 0915 (Given - Provider: Aneta Jennings RN) 1019 (Given - Provider: Praneeth Harmon RN) sodium chloride flush 0.9 % injection 5-40 mL 5-40 mL, IntraVENous, EVERY 12 HOURS SCHEDULED (2 times per day), First dose on Mon06/13/22 at 0900, Until Discontinued, For Line Patency: Peripheral IV = 5 mL; Midline or Central Line = 10 mL/lumen. If following IV push medication, administer flush at same rate as the IV push. Flush volume is determined by type of infusion therapy being given. For non-viscous solutions use: Peripheral IV = 5 mL Midline or Central Line = 10 mL/lumen For viscous solutions (i.e. blood components, parenteral nutrition, contrast media, or after obtaining blood sample) use: Peripheral IV = 10 mL Midline or Central Line = 20 mL/lumen 0837 (Not Given - Provider: Lelia Godoy RN - Reason: IV Fluid Infusing)2037 (Not Given - Provider: Sharita Gtz, RN - Reason: IV Fluid Infusing) 1003 (Not Given - Provider: Aneta Jennings, RN - Reason: IV Fluid Infusing)2013 (Given - Provider: Jyoti Hanson RN)2014 (Canceled Entry - Provider: Jyoti Hanson RN) 1028 (Given - Provider: Praneeth Harmon RN)2099 (Due) sodium chloride flush 0.9 % injection 5-40 mL 5-40 mL, IntraVENous, EVERY 12 HOURS SCHEDULED (2 times per day), First dose on Mon06/14/22 at 2100, Until Discontinued, For Line Patency: Peripheral IV = 5 mL; Midline or Central Line = 10 mL/lumen. If following IV push medication, administer flush at same rate as the IV push. Flush volume is determined by type of infusion therapy being given. For non-viscous solutions use: Peripheral IV = 5 mL Midline or Central Line = 10 mL/lumen For viscous solutions (i.e. blood components, parenteral nutrition, contrast media, or after obtaining blood sample) use: Peripheral IV = 10 mL Midline or Central Line = 20 mL/lumen, Recovery(Cath) 2014 (Not Given - Provider: Jyoti Hanson RN - Reason: Other - Comment: duplicate order) 1027 (Given - Provider: Praneeth Harmon RN)2099 (Due) tamoxifen (NOLVADEX) tablet 20 mg 20 mg, Oral, DAILY, First dose on Mon06/13/22 at 0900, Until Discontinued, Hazardous Medication -- Refer to facility policy for handling and disposal. 0848 (Given - Provider: Lelia Godoy, RN) 0916 (Given - Provider: Aneta Jennings, RN) 1020 (Given - Provider: Praneeth Harmon, KVNG) Continuous Medication Order 06/13/2022 06/14/2022 06/15/2022 0.9 % sodium chloride infusion (CANCELED) IntraVENous, at 75 mL/hr, CONTINUOUS, Starting on Mon06/13/22 at 0015 0042 (New Bag - Provider: Sharita Gtz, KVNG)1444 (New Bag - Provider: Lelia Godoy RN) 0431 (New Bag - Provider: Sharita Gtz RN) PRN Medication Order 06/13/2022 06/14/2022 06/15/2022 0.9 % sodium chloride infusion IntraVENous, at 5-250 mL/hr, PRN, if patient receiving piggyback infusions and maintenance fluids are not ordered OR KVO fluids to protect IV site / prevent frequent line interruptions/ long duration, Starting on Mon06/12/22 at 2357, For piggyback infusion, administer at same rate as piggyback for a total of 25 mL. Enter 25 mL into dose field and piggyback rate into rate field of order. If piggyback is infusing at a rate less than 100 mL/hr, enter 25 mL into dose field and 100 mL/hr into rate field of order. For KVO fluids, enter rate of 20 mL/hr or less into rate field of order. 0.9 % sodium chloride infusion IntraVENous, at 5-250 mL/hr, PRN, if patient receiving piggyback infusions and maintenance fluids are not ordered OR KVO fluids to protect IV site / prevent frequent line interruptions/ long duration, Starting on Mon06/14/22 at 1806, For piggyback infusion, administer at same rate as piggyback for a total of 25 mL. Enter 25 mL into dose field and piggyback rate into rate field of order. If piggyback is infusing at a rate less than 100 mL/hr, enter 25 mL into dose field and 100 mL/hr into rate field of order. For KVO fluids, enter rate of 20 mL/hr or less into rate field of order., Recovery(Cath) acetaminophen (TYLENOL) suppository 650 mg(Linked Group 1) 650 mg, Rectal, EVERY 6 HOURS PRN, Starting on Mon06/12/22 at 2357, Until Discontinued, Pain Mild (1-3), Fever, For temp greater than 100.4 F (38 C), Administer if oral route cannot be used. acetaminophen (TYLENOL) tablet 650 mg(Linked Group 1) 650 mg, Oral, EVERY 6 HOURS PRN, Starting on Mon06/12/22 at 2357, Until Discontinued, Pain Mild (1-3), Fever, For temp greater than 100.4 F (38 C), Maximum dose of acetaminophen is 4000 mg from all sources in 24 hours. acetaminophen (TYLENOL) tablet 650 mg 650 mg, Oral, EVERY 4 HOURS PRN, Starting on Mon06/14/22 at 1806, Until Discontinued, Pain Mild (1-3), Fever, Fever >100.5 F (38 C), Maximum dose of acetaminophen is 4000 mg from all sources in 24 hours., Recovery(Cath) dextrose 10 % infusion IntraVENous, at 100 mL/hr, CONTINUOUS PRN, if blood glucose remains LESS THAN 70 mg/dL after 2 dextrose 10% intravenous boluses or administration of glucagon, Starting on Mon06/12/22 at 2357, If blood glucose fails to stabilize after 2 dextrose 10% intravenous boluses or glucagon administration, start dextrose 10% infusion at 100 mL/hour and repeat blood glucose at 30 and 60 minutes. If blood glucose is GREATER THAN 70 mg/dL after 60 minutes, discontinue dextrose 10% infusion. dextrose bolus 10% 125 mL(Linked Group 2) 125 mL, IntraVENous, at 937.5 mL/hr, Administer over 8 Minutes, PRN, Other, Blood glucose 40 - 69 mg/dL and patient NOT ALERT or NPO, Starting on Mon06/12/22 at 2357, Repeat blood glucose in 15 minutes. If blood glucose remains LESS THAN 70 mg/dL, repeat treatment and recheck blood glucose in 15 minutes x 2. If using glycemic management system, dose as instructed per system. If blood glucose remains LESS THAN 70 mg/dL after 2 intravenous boluses start dextrose 10% at 100 mL/hour and notify provider. dextrose bolus 10% 250 mL(Linked Group 2) 250 mL, IntraVENous, at 937.5 mL/hr, Administer over 16 Minutes, PRN, Other, Blood glucose LESS THAN 40 mg/dL and patient NOT ALERT or NPO, Starting on Mon06/12/22 at 2357, Repeat blood glucose in 15 minutes. If blood glucose remains LESS THAN 70 mg/dL, repeat treatment and recheck blood glucose in 15 minutes x 2. If using glycemic management system, dose as instructed per system. If blood glucose remains LESS THAN 70 mg/dL after 2 intravenous boluses start dextrose 10% at 100 mL/hour and notify provider. glucagon (rDNA) injection 1 mg 1 mg, SubCUTAneous, PRN, Starting on Mon06/12/22 at 2357, Until Discontinued, Low blood sugar, Blood glucose LESS THAN 70 mg/dL and patient NOT ALERT or NPO and does not have IV access., After administration, attempt intravenous access and start dextrose 10% at 100 mL/hr. Repeat blood glucose in 15 minutes x 2 and notify provider. glucose chewable tablet 16 g 16 g (4 tablet), Oral, PRN, Starting on 06/12/22 at 2357, Until Discontinued, Low blood sugar, If blood glucose is LESS THAN 70 mg/dL and patient is alert and tolerating oral. Give 4 tablets (16g) Repeat blood glucose in 15 minutes. If blood glucose is LESS THAN 70 mg/dL, repeat treatment and recheck blood glucose in 15 minutes x 2. If blood glucose remains LESS THAN 70 mg/dL, notify provider. magnesium hydroxide (MILK OF MAGNESIA) 400 MG/5ML suspension 30 mL 30 mL, Oral, DAILY PRN, Starting on 06/12/22 at 2357, Until Discontinued, Constipation, First line therapy for constipation. magnesium sulfate 1000 mg in dextrose 5% 100 mL IVPB 1,000 mg, IntraVENous, at 100 mL/hr, Administer over 1 Hours, PRN, Other, Per IV Magnesium Replacement Protocol, Starting on 06/12/22 at 2357, Mg Lab Replacement Action 1.4-1.6 1 gram IVPB x 2 doses (2 gram Total) 1.0-1.3 1 gram IVPB x 4 doses (4 gram Total) <1.0 CALL PHYSICIAN and 1 gram IVPB x 4 doses (4 gram Total) Infuse at 1 gram/hr Repeat Mag level next AM Protocol not for use in Patients with CrCl<30ml/min meclizine (ANTIVERT) tablet 25 mg 25 mg, Oral, 3 TIMES DAILY PRN, Starting on 06/13/22 at 0436, Until Discontinued, Dizziness nitroGLYCERIN (NITROSTAT) SL tablet 0.4 mg 0.4 mg, SubLINGual, EVERY 5 MIN PRN, Starting on 06/12/22 at 2357, Until Discontinued, Chest pain, Place 1 tablet under tongue upon chest pain, wait 5 minutes and may repeat up to 3 doses in 15 minutes. Do not crush or break. 1016 (Given - Provider: Lelia Godoy RN) ondansetron (ZOFRAN) injection 4 mg(Linked Group 3) 4 mg, IntraVENous, EVERY 6 HOURS PRN, Starting on Mon06/12/22 at 2357, Until Discontinued, Nausea, Vomiting, Administer if oral route cannot be used. ondansetron (ZOFRAN-ODT) disintegrating tablet 4 mg(Linked Group 3) 4 mg, Oral, EVERY 8 HOURS PRN, Starting on Mon06/12/22 at 2357, Until Discontinued, Nausea, Vomiting oxyCODONE (ROXICODONE) immediate release tablet 2.5 mg(Linked Group 4) 2.5 mg, Oral, EVERY 8 HOURS PRN, Starting on Mon06/13/22 at 0444, Until Discontinued, Pain Mild (1-3), Pain Moderate (4-6) oxyCODONE-acetaminophen (PERCOCET) 5-325 MG per tablet 1 tablet(Linked Group 4) Mg/kg dosing is based on the oxycodone component., 1 tablet, Oral, EVERY 8 HOURS PRN, Starting on Mon06/13/22 at 0444, Until Discontinued, Pain Moderate (4-6), Pain Mild (1-3), Maximum dose of acetaminophen is 4000 mg from all sources in 24 hours. 1010 (Not Given - Provider: Lelia Godoy RN - Reason: Other - Comment: nitro given instead) 0430 (Given - Provider: Sharita Gtz RN)2009 (Given - Provider: Jyoti Hanson RN) 0439 (Given - Provider: Jyoti Hanson RN)1246 (Given - Provider: Praneeth Harmon, KVNG) perflutren lipid microspheres (DEFINITY) injection 1.65 mg 1.65 mg (1.5 mL), IntraVENous, IMG ONCE PRN, 1 dose, Starting on Mon06/12/22 at 2357, Until Discontinued, Other, Inability to detect 2 or more contiguous segments in any of the 3 apical views due to poor endocardial border definition, Echocardiogram should first be performed without contrast and if exam is adequate then DO NOT administer the contrast and delete the order using Per Protocol order mode. If unable to detect 2 or more contiguous segments in any of the 3 apical views due to poor endocardial border definition, then assess patient for any contraindications to echo contrast and if none present administer the echo contrast. potassium bicarb-citric acid (EFFER-K) effervescent tablet 40 mEq(Linked Group 5) 40 mEq, Oral, PRN, Starting on Mon06/12/22 at 2357, Until Discontinued, Per Potassium Replacement Protocol, Administer as alternative if patient unable to tolerate oral tablet. K Lab Replacement Action 3.1 to 3.5 40 mEq ORAL x 1 Under 3.1 Refer to IV replacement protocol Recheck K level in AM. Protocol not for use in patients with CrCl less than 30 mL/min. Do not chew or crush. Dissolve flavored tablets completely in 3 to 4 ounces of cold water; unflavored tablets may be dissolved in 3 to 4 ounces of cold juice. Patient to sip slowly over a 5 to 10 minute period. May further dilute if GI adverse effects occur. potassium chloride (KLOR-CON M) extended release tablet 40 mEq(Linked Group 5) 40 mEq, Oral, PRN, Starting on Mon06/12/22 at 2357, Until Discontinued, Potassium Replacement, May give oral solution if patient unable to tolerate tablet. K Lab Replacement Action 3.1-3.5 40 mEq ORAL x 1 2.7-3.0 Refer to IV replacement orders < 2.7 Refer to IV replacement orders Recheck K level in AM. Not for use in patients with CrCl less than 30 mL/min. potassium chloride 10 mEq/100 mL IVPB (Peripheral Line)(Linked Group 5) For doses greater than 10 mEq, change frequency to every one hour for x number of doses., 10 mEq, IntraVENous, PRN, Starting on Mon06/12/22 at 2357, Until Discontinued, at 100 mL/hr, Potassium Replacement, K Lab Replacement Action 2.7-3.0 10 mEq IVPB x 6 doses (60 mEq Total) < 2.7 CALL PHYSICIAN and 10 mEq IVPB x 6 doses (60 mEq Total) Infuse at 10 mEq/hr Repeat Potassium lab 1 hour after final administration. Not for use in patients with CrCl less than 30 mL/min. sodium chloride flush 0.9 % injection 10 mL 10 mL, IntraVENous, PRN, Starting on Mon06/12/22 at 2357, Until Discontinued, Line Care, After every IV line use sodium chloride flush 0.9 % injection 5-40 mL 5-40 mL, IntraVENous, PRN, Starting on Mon06/14/22 at 1806, Until Discontinued, Line Care, After every IV line use, For Line Patency: Peripheral IV = 5 mL; Midline or Central Line = 10 mL/lumen. If following IV push medication, administer flush at same rate as the IV push. Flush volume is determined by type of infusion therapy being given. For non-viscous solutions use: Peripheral IV = 5 mL Midline or Central Line = 10 mL/lumen For viscous solutions (i.e. blood components, parenteral nutrition, contrast media, or after obtaining blood sample) use: Peripheral IV = 10 mL Midline or Central Line = 20 mL/lumen, Recovery(Cath) zolpidem (AMBIEN) tablet 10 mg 10 mg, Oral, NIGHTLY PRN, Starting on 06/13/22 at 2100, Until Discontinued, Sleep 2117 (Given - Provider: Sharita Gtz RN) Linked Groups Order Group 1: acetaminophen (TYLENOL) tablet 650 mgJump to med 650 mg, Oral, EVERY 6 HOURS PRN, Starting on 06/12/22 at 2357, Until Discontinued, Pain Mild (1-3), Fever, For temp greater than 100.4 F (38 C)
Maximum dose of acetaminophen is 4000 mg from all sources in 24 hours.
Or acetaminophen (TYLENOL) suppository 650 mgJump to med 650 mg, Rectal, EVERY 6 HOURS PRN, Starting on 06/12/22 at 2357, Until Discontinued, Pain Mild (1-3), Fever, For temp greater than 100.4 F (38 C)
Administer if oral route cannot be used.
Group 2: dextrose bolus 10% 125 mLJump to med 125 mL, IntraVENous, at 937.5 mL/hr, Administer over 8 Minutes, PRN, Other, Blood glucose 40 - 69 mg/dL and patient NOT ALERT or NPO, Starting on 06/12/22 at 2357
Repeat blood glucose in 15 minutes. If blood glucose remains LESS THAN 70 mg/dL, repeat treatment and recheck blood glucose in 15 minutes x 2. If using glycemic management system, dose as instructed per system. If blood glucose remains LESS THAN 70 mg/dL after 2 intravenous boluses start dextrose 10% at 100 mL/hour and notify provider.
Or dextrose bolus 10% 250 mLJump to med 250 mL, IntraVENous, at 937.5 mL/hr, Administer over 16 Minutes, PRN, Other, Blood glucose LESS THAN 40 mg/dL and patient NOT ALERT or NPO, Starting on 06/12/22 at 2357
Repeat blood glucose in 15 minutes. If blood glucose remains LESS THAN 70 mg/dL, repeat treatment and recheck blood glucose in 15 minutes x 2. If using glycemic management system, dose as instructed per system. If blood glucose remains LESS THAN 70 mg/dL after 2 intravenous boluses start dextrose 10% at 100 mL/hour and notify provider.
Group 3: ondansetron (ZOFRAN-ODT) disintegrating tablet 4 mgJump to med 4 mg, Oral, EVERY 8 HOURS PRN, Starting on 06/12/22 at 2357, Until Discontinued, Nausea, Vomiting Or ondansetron (ZOFRAN) injection 4 mgJump to med 4 mg, IntraVENous, EVERY 6 HOURS PRN, Starting on 06/12/22 at 2357, Until Discontinued, Nausea, Vomiting
Administer if oral route cannot be used.
Group 4: oxyCODONE-acetaminophen (PERCOCET) 5-325 MG per tablet 1 tabletJump to med Mg/kg dosing is based on the oxycodone component.
1 tablet, Oral, EVERY 8 HOURS PRN, Starting on Mon06/13/22 at 0444, Until Discontinued, Pain Moderate (4-6), Pain Mild (1-3)
Maximum dose of acetaminophen is 4000 mg from all sources in 24 hours.
And oxyCODONE (ROXICODONE) immediate release tablet 2.5 mgJump to med 2.5 mg, Oral, EVERY 8 HOURS PRN, Starting on Mon06/13/22 at 0444, Until Discontinued, Pain Mild (1-3), Pain Moderate (4-6) Group 5: potassium chloride (KLOR-CON M) extended release tablet 40 mEqJump to med 40 mEq, Oral, PRN, Starting on Mon06/12/22 at 2357, Until Discontinued, Potassium Replacement
May give oral solution if patient unable to tolerate tablet. K Lab Replacement Action 3.1-3.5 40 mEq ORAL x 1 & nbsp; 2.7-3.0 Refer to IV replacement orders < 2.7 Refer to IV replacement orders Recheck K level in AM. Not for use in patients with CrCl less than 30 mL/min.
Or potassium bicarb-citric acid (EFFER-K) effervescent tablet 40 mEqJump to med 40 mEq, Oral, PRN, Starting on 06/12/22 at 2357, Until Discontinued, Per Potassium Replacement Protocol
Administer as alternative if patient unable to tolerate oral tablet. K Lab Repla cemen t Action 3.1 to 3.5 40 mEq ORAL x 1 Under 3.1 Refer to IV replacement protocol Recheck K level in AM. Protocol not for use in patients with CrCl less than 30 mL/min. Do not chew or crush. Dissolve flavored tablets completely in 3 to 4 ounces of cold water; unflavored tablets may be dissolved in 3 to 4 ounces of cold juice. Patient to sip slowly over a 5 to 10 minute period. May further dilute if GI adverse effects occur.
Or potassium chloride 10 mEq/100 mL IVPB (Peripheral Line)Jump to med For doses greater than 10 mEq, change frequency to every one hour for x number of doses.
10 mEq, IntraVENous, PRN, Starting on 06/12/22 at 2357, Until Discontinued, at 100 mL/hr, Potassium Replacement
K Lab Replacement Action 2.7-3.0 10 mEq IVPB x 6 doses (60 mEq Total) < 2.7 CALL PHYSICIAN and 10 mEq IVPB x 6 doses (60 mEq Total) Infuse at 10 mEq/hr Repeat Potassium lab 1 hour after final administration. Not for use in patients with CrCl less than 30 mL/min.
Scheduled Medication Order 10/19/2023 10/20/2023 10/21/2023 ALPRAZolam (XANAX) tablet 1 mg 1 mg, oral, 3 times daily, First dose on Mon10/20/23 at 0800, Look-alike/sound-alike medication - verify indication for use. 0856 (Given - Provider: Eileen Hinton RN)1439 (Given - Provider: Eileen Hinton RN)2003 (Given - Provider: Tanja Adamson RN) 0840 (Given - Provider: Tiana Cardoza RN)131 (Given - Provider: Tiana Cardoza RN)1999 (Due) amiodarone (PACERONE) tablet 200 mg 200 mg, oral, Daily, First dose on Mon10/20/23 at 0900, Look-alike/sound-alike medication - verify indication for use. 0856 (Given - Provider: Eileen Hinton RN) 0839 (Given - Provider: Tiana Cardoza, KVNG) aspirin EC tablet 81 mg 81 mg, oral, Daily, First dose on Mon10/20/23 at 0900, Do not crush or chew. 0856 (Given - Provider: Eileen Hinton RN) 0840 (Given - Provider: Tiana Cardoza, KVNG) atorvastatin (LIPITOR) tablet 80 mg 80 mg, oral, Daily, First dose on Mon10/20/23 at 0900, Look-alike/sound-alike medication - verify indication for use. 0856 (Given - Provider: Eileen Hinton RN) 0840 (Given - Provider: Tiana Cardoza, KVNG) citalopram (CeleXA) tablet 20 mg 20 mg, oral, 2 times daily, First dose on Mon10/20/23 at 0215, Look-alike/sound-alike medication - verify indication for use. 0215 (Not Given - Provider: Mena Dyer RN - Reason: Other)0856 (Given - Provider: Eielen Hinton RN)2004 (Given - Provider: Tanja Adamson, KVNG) 0840 (Given - Provider: Tiana Cardoza, RN)2100 (Due) clopidogreL (PLAVIX) tablet 75 mg 75 mg, oral, Daily, First dose on Mon10/20/23 at 0900, Look-alike/sound-alike medication - verify indication for use. 0856 (Given - Provider: Eileen Hinton RN) 0840 (Given - Provider: Tiana Cardoza, RN) dexAMETHasone (DECADRON) injection 6 mg 6 mg, intravenous, Every 24 hours scheduled, First dose on Mon10/20/23 at 0900, May alter blood glucose or insulin requirements. Look-alike/sound-alike medication - verify indication for use., Intravenous Specific Administration: IV Push 0857 (Given - Provider: Eileen Hinton RN) 0841 (Given - Provider: Tiana Cardoza RN) enoxaparin (LOVENOX) syringe 40 mg 40 mg, subcutaneous, Daily, First dose on Mon10/20/23 at 0215, Look-alike/sound-alike medication - verify indication for use. 0347 (Given - Provider: Mena Dyer RN) 0425 (Given - Provider: Tanja Adamson, KVNG) furosemide (LASIX) injection 40 mg (COMPLETED) 40 mg, intravenous, Once, On Mon10/20/23 at 1600, For 1 dose, Look-alike/sound-alike medication - verify indication for use. IVP rate = 20 mg/min 1634 (Given - Provider: Eileen Hinton, KVNG) furosemide (LASIX) tablet 20 mg 20 mg, oral, Daily, First dose on Mon10/20/23 at 0900, Look-alike/sound-alike medication - verify indication for use. 0856 (Given - Provider: Eileen Hinton RN) 0839 (Given - Provider: Tiana Cardoza, KVNG) gabapentin (NEURONTIN) capsule 300 mg 300 mg, oral, 2 times daily, First dose on Mon10/20/23 at 0215, Look-alike/sound-alike medication - verify indication for use. 0215 (Not Given - Provider: Mena Dyer RN - Reason: Other)0856 (Given - Provider: Eileen Hinton, KVNG)2003 (Given - Provider: Tanja Adamson, KVNG) 0840 (Given - Provider: Tiana Cardoza RN)2100 (Due) metoprolol succinate XL (TOPROL XL) 24 hr tablet 25 mg 25 mg, oral, Daily, First dose on Mon10/20/23 at 0900, Look-alike/sound-alike medication - verify indication for use. Do not crush or chew. 0856 (Given - Provider: Eileen Hinton RN) 09 (Not Given - Provider: Tiana Cardoza RN - Reason: Contraindicated) midodrine (PROAMATINE) tablet 10 mg 10 mg, oral, 2 times daily, First dose on Mon10/20/23 at 0215, Look-alike/sound-alike medication - verify indication for use. 0215 (Not Given - Provider: Mena Dyer RN - Reason: Other)0346 (Given - Provider: Mena Dyer RN)0857 (Given - Provider: Eileen Hinton RN)2003 (Given - Provider: Tanja Adamson, KVNG) 0839 (Given - Provider: Tiana Cardoza RN)2100 (Due) morphine (MS CONTIN) 12 hr tablet 15 mg 15 mg, oral, Every 12 hours scheduled, First dose (after last modification) on Mon10/20/23 at 0600, Look-alike/sound-alike medication - verify indication for use. Swallow whole-do not crush or chew. 09 (Given - Provider: Eileen Hinton RN)2003 (Given - Provider: Tanja Adamson, RN) 0840 (Given - Provider: Tiana Cardoza, RN)2100 (Due) nicotine (NICODERM CQ) 21 mg/24 hr 1 patch 1 patch, transdermal, Administer over 24 Hours, Daily, First dose on Mon10/20/23 at 1600, Remove patch prior to MRI procedure as serious dueñas may occur- patch may be reapplied. Remove previous patch, if present, before applying new. 1634 (Medication Applied - Provider: Eileen Hinton RN) 0839 (Medication Removed - Provider: Tiana Cardoza RN)0841 (Medication Applied - Provider: Tiana Cardoza RN) pantoprazole (PROTONIX) EC tablet 40 mg 40 mg, oral, Daily, First dose on Mon10/20/23 at 0900, Look-alike/sound-alike medication - verify indication for use. If patient is receiving enteral feeding, consider alternative PPI or continue IV pantoprazole until the delayed-release tablet can be taken orally, Indication: GERD 0856 (Given - Provider: Eileen Hinton RN) 0840 (Given - Provider: Tiana Cardoza RN) potassium chloride (K-TAB,KLOR-CON) CR tablet 10 mEq 10 mEq, oral, 2 times daily, First dose on Mon10/20/23 at 0215, Do not crush or chew. 0215 (Not Given - Provider: Mena Dyer RN - Reason: Other)0856 (Given - Provider: Eileen Hinton RN)2003 (Given - Provider: Tanja Adamson RN) 0839 (Given - Provider: Tiana Cardoza RN)2100 (Due) potassium chloride (KLOR-CON M 20) CR tablet 40 mEq (COMPLETED) 40 mEq, oral, Once, On Evelyne 10/19/23 at 2035, For 1 dose, Do not crush or chew. 2214 (Given - Provider: Jazmin Pires RN) remdesivir (VEKLURY) 100 mg in sodium chloride 0.9 % 250 mL IVPB(Linked Group 1) 100 mg, intravenous, at 135 mL/hr, Administer over 120 Minutes, Every 24 hours, First dose on 10/21/23 at 1000, For 4 doses, I acknowledge that this medication will NOT be dispensed if the patient does NOT meet the established Restricted Use Criteria and that I may be contacted regarding these criteria. Yes 1057 (New Bag - Provider: Tiana Cardoza RN)1101 (Stop Bag - Provider: Tiana Cardoza RN)1101 (Stop Bag - Provider: Tiana Cardoza RN)1257 (Stop Bag - Provider: Tiana Cardoza RN) remdesivir (VEKLURY) 200 mg in sodium chloride 0.9 % 250 mL IVPB (COMPLETED)(Linked Group 1) 200 mg, intravenous, at 145 mL/hr, Administer over 120 Minutes, Once, On Mon10/20/23 at 1000, For 1 dose, I acknowledge that this medication will NOT be dispensed if the patient does NOT meet the established Restricted Use Criteria and that I may be contacted regarding these criteria. Yes 0958 (New Bag - Provider: Eileen Hinton RN)0959 (Rate/Dose Verify - Provider: Eileen Hinton RN)1135 (Paused - Provider: Eileen Hinton RN)1202 (Restarted - Provider: Eileen Hinton RN)1211 (Rate/Dose Verify - Provider: Eileen Hinton RN)1234 (Stop Bag - Provider: Eileen Hinton RN) sodium chloride 0.9 % bolus (COMPLETED) 1,566 mL (30 mL/kg 52.2 kg), intravenous, at 1,540.3 mL/hr, Administer over 61 Minutes, Once, On Evelyne 10/19/23 at 1745, For 1 dose 2216 (New Bag - Provider: Jazmin Pires RN - Comment: no IV access)2317 (Stop Bag - Provider: Mena Dyer RN) 0020 (Continue to Inpatient Floor - Provider: Umm Gong RN)0100 (Restarted - Provider: Mena Dyer RN) Continuous Medication Order 10/19/2023 10/20/2023 10/21/2023 dextrose 5 % and sodium chloride 0.9 % with KCl 20 mEq/L infusion (CANCELED) 125 mL/hr, intravenous, Continuous, Starting on Mon10/20/23 at 0215 0408 (New Bag - Provider: Mena Dyer RN)0408 (Rate/Dose Verify - Provider: Eileen Hinton RN)0805 (Paused - Provider: Eileen Hinton RN)0817 (Restarted - Provider: Eileen Hinton RN)0956 (Stop Bag - Provider: Eileen Hinton RN)1252 (Restarted - Provider: Eileen Hinton RN)1253 (Rate/Dose Verify - Provider: Eileen Hinton RN)1310 (Paused - Provider: Eileen Hinton RN)1315 (Restarted - Provider: Eileen Hinton RN)1517 (Paused - Provider: Eileen Hinton RN)1525 (Restarted - Provider: Eileen Hinton RN)1527 (Rate/Dose Verify - Provider: Eileen Hinton RN)1534 (Paused - Provider: Eileen Hinton RN)1534 (Paused - Provider: Eileen Hinton RN)1641 (Restarted - Provider: Eileen Hinton RN)1643 (Stop Bag - Provider: Eileen Hinton RN) PRN Medication Order 10/19/2023 10/20/2023 10/21/2023 acetaminophen (TYLENOL) tablet 650 mg 650 mg, oral, Every 4 hours PRN, headaches, mild pain - pain scale 1-3, Temperature greater than 38.3 C, Starting on Mon10/20/23 at 0200, [Warning: Total Acetaminophen not to exceed more than 4 grams (4000 mg) in 24 hours] alum-mag hydroxide-simeth (MAALOX) 200-200-20 mg/5 mL suspension 30 mL 30 mL, oral, 4 times daily after meals and at bedtime as needed, dyspepsia, Starting on Mon10/20/23 at 0200, Look-alike/sound-alike medication - verify indication for use. Shake well., Indications: dyspepsia dextrose (GLUTOSE) 40 % gel 15 g 15 g, oral, As needed, low blood sugar, blood glucose less than 70 mg/dL, Starting on Mon10/20/23 at 0200, If patient conscious and taking PO. If blood glucose is not greater than 70 mg/dL after initial treatment, repeat treatment. dextrose 5 % (D5W) infusion 100 mL/hr, intravenous, Continuous PRN, blood glucose less than 70 mg/dL, Starting on Mon10/20/23 at 0200, Use immediately following dextrose 50% or glucagon treatment for patients who are unconscious or NPO. Contact prescriber for additional orders. If blood glucose is not greater than 70 mg/dL after initial treatment, repeat treatment. dextrose 50 % in water (D50W) 50% solution 25 mL 25 mL, intravenous, As needed, low blood sugar, blood glucose less than 70 mg/dL and unconscious or NPO with IV access, Starting on Mon10/20/23 at 0200, Push over 1-3 minutes STAT. If conscious and not NPO, immediately follow with meal tray or high protein (7 grams) snack if tray not available. If NPO, initiate 5% dextrose in water at 100 mL/hr and contact prescriber for additional orders. If blood glucose is not greater than 70 mg/dL after initial treatment, repeat treatment. VESICANT (RED) Warning: HYPERTONIC solution. glucagon HCL injection 1 mg 1 mg, intramuscular, As needed, low blood sugar, blood glucose less than 70 mg/dL and unconscious or NPO without IV access., Starting on Mon10/20/23 at 0200, If conscious and not NPO, immediately follow with meal tray or high protein (7Grams) snack if tray not available. If NPO, initiate IV 5% Dextrose/Water at 100 mL/hr and contact prescriber for additional orders. If blood glucose is not greater than 70 mg/dL after initial treatment, repeat treatment. ipratropium-albuteroL (DUONEB) 0.5 mg-3 mg(2.5 mg base)/3 mL nebulizer solution 3 mL 3 mL, nebulization, Every 4 hours PRN, wheezing, Starting on Mon10/20/23 at 0828, Implement INPATIENT/ED Bronchodilator Clinical Practice Guidelines? Yes, Document: \[facility]\epic\E PIC_Reference\Orders\Respir atory Care Guidelines\CPG Bronchodilator 2020.pdf magnesium sulfate IVPB 2000 mg/50 mL in iso-osmotic water (40 mg/mL premix) 2,000 mg, intravenous, at 25 mL/hr, Administer over 120 Minutes, As needed, Magnesium level 1.7 to 1.9 mg/dL, or Ionized Magnesium level 0.45 to 0.5 mmol/L., Starting on Mon10/20/23 at 0200, Recheck magnesium level 4 hours after infusion complete. With each magnesium result continue the replacement orders as needed. magnesium sulfate IVPB 4000 mg/100 mL in iso-osmotic water (40 mg/mL premix) 4,000 mg, intravenous, at 25 mL/hr, Administer over 240 Minutes, As needed, Magnesium level 1.6 mg/dL or less, or Ionized Magnesium level 0.44 mmol/L or less, Starting on Mon10/20/23 at 0200, Recheck magnesium level 4 hours after infusion complete. With each magnesium result continue the replacement orders as needed. ondansetron (PF) (ZOFRAN) injection 4 mg 4 mg, intravenous, Every 4 hours PRN, nausea, vomiting, Starting on Mon10/20/23 at 0200, Administer over 2-5 minutes. oxyCODONE-acetaminophen (PERCOCET) 5-325 mg per tablet 1 tablet 1 tablet, oral, 3 times daily PRN, moderate pain - pain scale 4-6, severe pain - pain scale 7-10, Starting on Mon10/20/23 at 0159, Look-alike/sound-alike medication - verify indication for use. 0330 (Given - Provider: Mena Dyer, RN)1207 (Given - Provider: Eileen Hinton, KVNG)1936 (Given - Provider: Tanja Adamson RN) potassium chloride (K-TAB,KLOR-CON) CR tablet 30-50 mEq(Linked Group 2) 30-50 mEq, oral, As needed, potassium supplementation, Starting on Mon10/20/23 at 0200, Progress to oral potassium replacement when patient tolerating oral intake. If dose administered, recheck potassium level 4 hours after last dose. For potassium level 3.4 to 3.8 mmol/L and GFR 30 mL/min or greater=30 mEq. For potassium level 3.1 to 3.3 mmol/L and GFR 30 mL/min or greater=40 mEq. For potassium level 3 mmol/L or less and GFR 30 mL/min or greater=50 mEq. Do not crush or chew. 0841 (Given - Provid er: Tiana Cardoza RN) potassium chloride (KAYCIEL) 20 mEq/15 mL solution 30-50 mEq(Linked Group 2) 30-50 mEq, oral, As needed, potassium supplementation, Starting on Mon10/20/23 at 0200, Progress to oral potassium replacement when patient tolerating oral intake. If dose administered, recheck potassium level 4 hours after last dose. For potassium level 3.4 to 3.8 mmol/L and GFR 30 mL/min or greater=30 mEq. For potassium level 3.1 to 3.3 mmol/L and GFR 30 mL/min or greater=40 mEq. For potassium level 3 mmol/L or less and GFR 30 mL/min or greater=50 mEq. Must dilute before use - Mix in 3-8 ounces of water or juice before administration When administering in feeding tube, flush before and after per policy and monitor potassium levels 0841 (See Alternativ e - Provider: Tiana Cardoza, KVNG) sennosides-docusate sodium (SENOKOT-S) 8.6-50 mg 1 tablet 1 tablet, oral, Every 12 hours PRN, constipation, Starting on Mon10/20/23 at 0200 sodium chloride 0.9 % flush 3 mL 3 mL, intravenous, As needed, line care, before and after each intermittent use, Starting on Mon10/19/23 at 1743 sodium chloride 0.9 % flush bag 25 mL, intravenous, at 100 mL/hr, Administer over 15 Minutes, As needed, line care, line care after IVPB administration, Starting on Mon10/20/23 at 0200 0957 (New Bag - Provider: Eileen Hinton RN)0958 (Stop Bag - Provider: Eileen Hinton RN)1234 (Restarted - Provider: Eileen Hinton RN)1252 (Stop Bag - Provider: Eileen Hinton RN) sodium chloride 0.9 % infusion 20 mL/hr, intravenous, Continuous PRN, to maintain patency of lines, Starting on Mon10/20/23 at 0200 zolpidem (AMBIEN) tablet 10 mg 10 mg, oral, Nightly PRN, sleep, Starting on Mon10/20/23 at 0200, Look-alike/sound-alike medication - verify indication for use. 033 (Given - Provider: Mena Dyer, KVNG)2003 (Given - Provider: Tanja Adamson, KVNG) Linked Groups Order Group 1: remdesivir (VEKLURY) 200 mg in sodium chloride 0.9 % 250 mL IVPB (COMPLETED)Jump to med 200 mg, intravenous, at 145 mL/hr, Administer over 120 Minutes, Once, On Mon10/20/23 at 1000, For 1 dose, I acknowledge that this medication will NOT be dispensed if the patient does NOT meet the established Restricted Use Criteria and that I may be contacted regarding these criteria. Yes Followed by remdesivir (VEKLURY) 100 mg in sodium chloride 0.9 % 250 mL IVPBJump to med 100 mg, intravenous, at 135 mL/hr, Administer over 120 Minutes, Every 24 hours, First dose on Mon10/21/23 at 1000, For 4 doses, I acknowledge that this medication will NOT be dispensed if the patient does NOT meet the established Restricted Use Criteria and that I may be contacted regarding these criteria. Yes Group 2: potassium chloride (K-TAB,KLOR-CON) CR tablet 30-50 mEqJump to med 30-50 mEq, oral, As needed, potassium supplementation, Starting on Mon10/20/23 at 0200, Progress to oral potassium replacement when patient tolerating oral intake. If dose administered, recheck potassium level 4 hours after last dose. For potassium level 3.4 to 3.8 mmol/L and GFR 30 mL/min or greater=30 mEq. For potassium level 3.1 to 3.3 mmol/L and GFR 30 mL/min or greater=40 mEq. For potassium level 3 mmol/L or less and GFR 30 mL/min or greater=50 mEq. Do not crush or chew. Or potassium chloride (KAYCIEL) 20 mEq/15 mL solution 30-50 mEqJump to med 30-50 mEq, oral, As needed, potassium supplementation, Starting on Mon10/20/23 at 0200, Progress to oral potassium replacement when patient tolerating oral intake. If dose administered, recheck potassium level 4 hours after last dose. For potassium level 3.4 to 3.8 mmol/L and GFR 30 mL/min or greater=30 mEq. For potassium level 3.1 to 3.3 mmol/L and GFR 30 mL/min or greater=40 mEq. For potassium level 3 mmol/L or less and GFR 30 mL/min or greater=50 mEq. Must dilute before use - Mix in 3-8 ounces of water or juice before administration When administering in feeding tube, flush before and after per policy and monitor potassium levels Ordered Prescriptions (unrec ognized section and content) Prescription Sig Dispensed Refills Start Date End Da te amLODIPine (NORVASC) 5 MG tablet Take 1 tablet by mouth nightly 30 tablet 3 06/15/2022 metoprolol tartrate (LOPRESSOR) 25 MG tablet Take 1 tablet by mouth 2 times daily 60 tablet 3 06/15/2022 nitroGLYCERIN (NITROSTAT) 0.4 MG SL tablet up to max of 3 total doses. If no relief after 1 dose, call 911. 25 tablet 3 06/15/2022 Goals (unrecognized section and content) Goals may be documented in a n alternate section FOR RECORDS PERTAINING TO PATIENTS WHO ARE OR HAVE BEEN ENROLLED IN A CHEMICAL DEPENDENCY/SUBSTANCEABUSE PROGRAM, SOME INFORMATION MAY BE OMITTED. This clinical summary was aggregated from multiple sources. Caution should be exercised in using it in the provision of clinical care. This summary normalizes information from multiple sources, and as a consequence, information in this document may materially change the coding, format and clinical context of patient data. In addition, data may be omitted in some cases. CLINICAL DECISIONS SHOULD BE BASED ON THE PRIMARY CLINICAL RECORDS. [facility]. provides no warranty or guarantee of the accuracy or completeness of information in this document.
--- NOTE | 2023-11-08 21:25 | ED.GENADUL1 ---
HPI - General Adult General Chief complaint: Altered Mental Status Stated complaint: altered mental Time Seen by Provider: 11/08/23 21:15 Source: other Source information: EMS Mode of arrival: ambulance Limitations: no limitations Limitations comment: Pt is altered from baseline at this time History of Present Illness HPI narrative: 63-year-old female presents for weakness and altered mental status. She was transported here by paramedics after the called for paramedics. Apparently she was recently in the hospital with rib fractures and pneumonia, earlier this month. It's not clear when these symptoms started. No new injury. Related Data Home Medications Medication Instructions Recorded Confirmed alprazolam 1 mg tablet 1 mg PO TID PRN anxiety 06/10/23 10/26/23 clopidogrel 75 mg tablet 75 mg PO DAILY 06/10/23 10/25/23 midodrine 10 mg tablet 10 mg PO TID 06/10/23 10/25/23 nitroglycerin 0.4 mg sublingual 0.4 mg sublingual Q5M PRN chest 06/10/23 10/25/23 tablet pain zolpidem 5 mg tablet 10 mg PO .HS PRN sleep 06/10/23 10/26/23 atorvastatin 80 mg tablet 80 mg PO DAILY 07/03/23 10/25/23 citalopram 40 mg tablet 40 mg PO DAILY 07/03/23 10/25/23 gabapentin 600 mg tablet 600 mg PO BID 07/03/23 10/25/23 metformin 500 mg tablet 500 mg PO BID 07/03/23 10/25/23 morphine 15 mg tablet,extended 10 mg PO Q12H pain 07/03/23 10/26/23 release oxycodone-acetaminophen 7.5 mg-325 1 tab PO Q8H PRN pain 07/03/23 10/25/23 mg tablet pantoprazole 40 mg tablet,delayed 40 mg PO DAILY 07/03/23 10/25/23 release potassium chloride 10 mEq 10 meq PO BID 07/03/23 10/25/23 capsule,extended release aspirin 81 mg chewable tablet 81 mg PO DAILY 10/26/23 10/26/23 tamoxifen 20 mg tablet 20 mg PO DAILY 10/26/23 10/26/23 Previous Rx's Medication Instructions Recorded amoxicillin 875 mg-potassium 1 tab PO Q12H #20 tabs 10/27/23 clavulanate 125 mg tablet benzonatate 100 mg capsule 200 mg (2 x 100 mg) PO Q8H PRN 10/27/23 Cough #20 caps fludrocortisone 0.1 mg tablet 0.1 mg PO QD #30 tabs 10/27/23 metformin 500 mg tablet 500 mg PO BIDWM #60 tabs 10/27/23 Allergies Allergy/AdvReac Type Severity Reaction Status Date / Time No Known Drug Allergies Allergy Verified 11/08/23 21:19 Review of Systems ROS Narrative A ten point review of systems is negative except as noted above. [facility] Medical History (Updated 11/08/23 @ 22:43 by Miguel Key MD) Hypothyroidism ?E03.9 - Hypothyroidism, unspecified (ICD-10) Left lower lobe pneumonia ?J18.9 - Pneumonia, unspecified organism (ICD-10) Multiple falls ?R29.6 - Repeated falls (ICD-10) Bradycardia ?R00.1 - Bradycardia, unspecified (ICD-10) Multiple rib fractures ?S22.49XA - Multiple fractures of ribs, unspecified side, initial encounter for closed fracture (ICD-10) Acute kidney injury ?N17.9 - Acute kidney failure, unspecified (ICD-10) Constipation ?K59.00 - Constipation, unspecified (ICD-10) Diabetes ?E11.9 - Type 2 diabetes mellitus without complications (ICD-10) Leukocytosis ?D72.829 - Elevated white blood cell count, unspecified (ICD-10) Depression ?F32.A - Depression, unspecified (ICD-10) HLD (hyperlipidemia) ?E78.5 - Hyperlipidemia, unspecified (ICD-10) CAD (coronary artery disease) ?I25.10 - Atherosclerotic heart disease of [place] coronary artery without angina pectoris (ICD-10) Chronic orthostatic hypotension ?I95.1 - Orthostatic hypotension (ICD-10) H/O malignant neoplasm of breast ?Z85.3 - Personal history of malignant neoplasm of breast (ICD-10) 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 ?C7A.8 - Other malignant neuroendocrine tumors (ICD-10) ?C7B.8 - Other secondary neuroendocrine tumors (ICD-10) Stomach cancer ?C16.9 - Malignant neoplasm of stomach, unspecified (ICD-10) Perforated intestine ?K63.1 - Perforation of intestine (nontraumatic) (ICD-10) Afib ?I48.91 - Unspecified atrial fibrillation (ICD-10) Acute confusion ?R41.0 - Disorientation, unspecified (ICD-10) Frequent falls ?R29.6 - Repeated falls (ICD-10) Chronic hypokalemia ?E87.6 - Hypokalemia (ICD-10) Surgical History (Updated 10/26/23 @ 05:24 by Violet Aly RN) S/P lumpectomy, right breast ?Z98.890 - Other specified postprocedural states (ICD-10) H/O: hysterectomy ?Z90.710 - Acquired absence of both cervix and uterus (ICD-10) H/O gastric bypass ?Z98.84 - Bariatric surgery status (ICD-10) Family History (Updated 07/02/23 @ 15:09 by Umm Mercado LPN) Mother Family history of COPD (chronic obstructive pulmonary disease) Family history of cancer Family history of diabetes mellitus Grandmother Family history of cancer Social History (Updated 07/02/23 @ 15:10 by Umm Mercado LPN) Within the past year, how often did you have a drink containing alcohol: never Within the past year, how many standard drinks containing alcohol did you have on a typical day: 1 or 2 Within the past year, how often did you have six or more drinks on one occasion: never Total score: 0 Score interpretation: A score less than 3 is consistent with normal alcohol consumption. Smoking status: Current every day smoker Second hand tobacco smoke exposure: Yes Non-prescribed substance use: denies use Previous occupational history: retired Known occupational exposures/hazards: No Highest level of school completed/degree received: high school graduate Do you want help with school or training: No Are you now , , , , never or living with a partner: In a typical week, how many times do you talk on the telephone with family, friends, or neighbors: 3 or more times per week How often do you get together with friends or relatives: 3 or more times per week How often do you attend synagogue or lutheran services: never Do you belong to any clubs or organizations such as synagogue groups unions, fraternal or athletic groups, or school groups: no Total score: 2 Score interpretation: A score of greater than or equal to 2 indicates the lowest level of social isolation. Little interest or pleasure in doing things: not at all Feeling down, depressed, or hopeless: not at all Feel stressed/tense/nervous/anxious/difficulty sleeping: not at all Due to disability, difficulty making decisions: No Do you think of yourself as: straight/heterosexual Gender Identity: female Exam Narrative Exam Narrative: Nurses note and vital signs reviewed and patient is not hypoxic. General: The patient appears in no apparent respiratory distress. she seems to prefer to keep her eyes closed. Skin: Warm, dry, no pallor noted. There is no rash noted. Head: Normocephalic, atraumatic Eye: Normal conjunctiva, no drainage Ears, Nose, Mouth, and Throat: oral mucosa is slightly dry. Nares patent. Cardiovascular: Regular Rate and Rhythm Respiratory: Patient is in no distress, no accessory muscle use, lungs are clear to auscultation, no wheezing, rales or rhonchi Back: non-tender GI: soft and nontender Musculoskeletal: The patient has no evidence of calf tenderness, no pitting edema, symmetrical pulses noted bilaterally Neurological: A&O x4, normal speech Psychiatric: Cooperative Constitutional Vital Signs, click to edit/add: Last Vital Signs Temp 100.1 F 11/08/23 21:14 Pulse 91 H 11/08/23 21:14 Resp 12 11/08/23 21:14 BP 78/53 L 11/08/23 21:14 Pulse Ox 94 L 11/08/23 22:04 O2 Del Method Vapotherm 11/08/23 22:04 O2 Flow Rate 40 11/08/23 22:04 FiO2 70 11/08/23 22:04 Course Vital Signs Vital signs: Vital Signs Temperature 100.1 F 11/08/23 21:14 Pulse Rate 91 H 11/08/23 21:14 Respiratory Rate 12 11/08/23 21:14 Blood Pressure 78/53 L 11/08/23 21:14 Pulse Oximetry 86 L 11/08/23 21:14 Oxygen Delivery Method Room Air 11/08/23 21:14 Temperature 100.1 F 11/08/23 21:14 Pulse Rate 91 H 11/08/23 21:14 Respiratory Rate 12 11/08/23 21:14 Blood Pressure 78/53 L 11/08/23 21:14 Pulse Oximetry 94 L 11/08/23 22:04 Oxygen Delivery Method Vapotherm 11/08/23 22:04 Oxygen Delivery Flow Rate 40 11/08/23 22:04 Fraction of Inspired Oxygen 70 11/08/23 22:04 Medical Decision Making MDM Narrative Medical decision making narrative: Left lower lobe pneumonia with effusion is identified. She was initially hypoxemic with an O2 sat of eighty-five percent. She is placed on Vapotherm and now her O2 sat is ninety-six percent. Blood cultures are obtained and she was given IV Rocephin and Zithromax and she's being admitted. Treatment diagnosis and disposition were discussed with the patient. Differential Diagnosis Differential Diagnosis: pneumonia, pneumothorax, effusion Medical Records Medical records reviewed: Yes I reviewed the patient's medical records Lab Data Lab results reviewed: Yes I reviewed the patient's lab results Labs: Lab Results 11/08/23 11/08/23 Range/Units 21:28 21:35 WBC 16.3 H (4.0-11.0) 10^3/uL RBC 4.01 L (4.20-5.40) 10^6/uL Hgb 11.3 L (12.0-16.0) g/dL Hct 37.0 (36.0-48.0) % MCV 92.3 (81.0-99.0) fL MCH 28.2 (26.7-34.0) pg MCHC 30.5 (29.9-35.2) g/dL RDW 17.2 H (11.0-15.0) % Plt Count 365 (150-450) 10^3/uL MPV 10.5 (9.5-13.5) fL Neut % (Auto) 81.0 H (43.0-75.0) % Lymph % (Auto) 11.1 L (20.5-60.0) % [place] % (Auto) 6.3 (1.7-12.0) % Eos % (Auto) 0.7 L (0.9-7.0) % Baso % (Auto) 0.2 (0.2-2.0) % Neut # (Auto) 13.2 H (1.4-6.5) 10^3/uL Lymph # (Auto) 1.8 (1.2-3.8) 10^3/uL [place] # (Auto) 1.0 H (0.3-0.8) 10^3/uL Eos # (Auto) 0.1 (0.0-0.7) 10^3/uL Baso # (Auto) 0.0 (0.0-0.1) 10^3/uL Abs Immat Gran (auto) 0.11 H (0.00-0.03) 10^3/uL Imm/Tot Granulo (auto) 0.7 H (0.0-0.5) % Sodium 141 (136-145) mmol/L Potassium 3.1 L (3.5-5.1) mmol/L Chloride 104 (98-107) mmol/L Carbon Dioxide 27.2 (21.0-32.0) mmol/L Anion Gap 12.9 BUN 5.0 L (7.0-18.0) mg/dL Creatinine 0.95 (0.55-1.02) mg/dL Est GFR ( Amer) >60 (>=60) Est GFR (Non-Af Amer) 60 (>=60) BUN/Creatinine Ratio 5.3 Glucose 100 (74-106) mg/dL Lactate 1.7 (0.4-2.0) mmol/L Calcium 8.5 (8.5-10.1) mg/dL Influenza Type A Ag Negative Influenza Type B Ag Negative SARS-CoV-2 Ag (CV2AG) Negative (NEGATIVE) Imaging Data Chest x-ray: Radiologist's impression: ITS Impressions Chest X-Ray 11/08/23 21:23 IMPRESSION: Moderate left pleural effusion with adjacent atelectasis/consolidation. Pulmonary vascular congestion. Electronically authenticated by: LAURIE RUFFIN Date: 11/08/2023 21:55 ECG Data Attestation: I personally reviewed and interpreted this ECG as follows: (EKG on my interpretation shows sinus rhythm with no acute changes and a rate of 89.) Critical Care Time Critical Care Time Critical Care Time: Yes Total Critical Care Time: 45 Attestation: Due to the high probability of sudden and clinically significant deterioration in the patient's condition he/she required the highest level of my preparedness to intervene urgently I provided critical care time including documentation time, medication orders and management, reevaluation, vital sign assessment, ordering and reviewing of lab tests, ordering and reviewing of x-ray studies, and admission orders. Aggregate critical care time is 45 minutes including only time during which I was engaged in work directly related to his/her care and did not include time spent treating other patients simultaneously. Discharge Plan Discharge Chief Complaint: Altered Mental Status Clinical Impression: Left lower lobe pneumonia Patient Disposition: Admitted As Inpatient Time of Disposition Decision: 22:44 Condition: Fair
[2023-11-08] MEDS: 0.9 % SODIUM CHLORIDE 1,000 ML 1000 ML IV (21:52)
[2023-11-08] MEDS: ACETAMINOPHEN 325 MG TABLET 650 MG PO (21:52)
[2023-11-08 21:57] LABS: Basophils Percent Auto 0.2 % (0.2-2.0); Eosinophils Absolute Auto 0.1 10^3/uL (0.0-0.7); Eosinophils Percent Auto 0.7 % (0.9-7.0); Hemoglobin 11.3 g/dL (12.0-16.0); Immature Granulocytes Abs Auto 0.11 10^3/uL (0.00-0.03); Immature Granulocytes Pct Auto 0.7 % (0.0-0.5); Lymphocytes Absolute Auto 1.8 10^3/uL (1.2-3.8); Lymphocytes Percent Auto 11.1 % (20.5-60.0); Mean Corpuscular HGB Conc 30.5 g/dL (29.9-35.2); Mean Corpuscular Hemoglobin 28.2 pg (26.7-34.0); Mean Corpuscular Volume 92.3 fL (81.0-99.0); Mean Platelet Volume 10.5 fL (9.5-13.5); Monocytes Percent Auto 6.3 % (1.7-12.0); Neutrophils Absolute Auto 13.2 10^3/uL (1.4-6.5); Platelet Count 365 10^3/uL (150-450); Red Blood Count 4.01 10^6/uL (4.20-5.40); Red Cell Distribution Width 17.2 % (11.0-15.0); White Blood Count 16.3 10^3/uL (4.0-11.0)
[2023-11-08 22:03] LABS: Influenza Virus A Antigen Negative; Influenza Virus B Antigen Negative; Internal Control Within Normal Limits; SARS-CoV-2 Ag NEGATIVE (NEGATIVE)
[2023-11-08 22:09] LABS: Lactate/Lactic Acid 1.7 mmol/L (0.4-2.0)
[2023-11-08] MEDS: CEFTRIAXONE 1,000 MG in 0.9 % SODIUM CHLORIDE 50 ML 100 MG IV (22:11)
[2023-11-08 22:13] LABS: Anion Gap 12.9; BUN Creatinine Ratio 5.3; Calcium 8.5 mg/dL (8.5-10.1); Carbon Dioxide 27.2 mmol/L (21.0-32.0); Chloride 104 mmol/L (98-107); Estimated GFR (African America >60 (>=60); Estimated GFR (Non-African Ame 60 (>=60); Glucose 100 mg/dL (74-106); Potassium 3.1 mmol/L (3.5-5.1); Sodium 141 mmol/L (136-145)
[2023-11-08] MEDS: AZITHROMYCIN 500 MG in 0.9 % SODIUM CHLORIDE 250 ML 250 MG IV (22:39)
--- NOTE | 2023-11-08 22:42 | RESP.RT ---
vapotherm being set up
[2023-11-08 23:12] LABS: Magnesium 1.5 mg/dL (1.8-2.4)
[2023-11-09] VITALS (71 sets, daily range): BP systolic 81–123; BP diastolic 40–52; PULSE 63–112; RESP 13–25; TEMP 36.3–38.2; O2SAT 38–97; BMI 21.5
[2023-11-09] MEDS: NICOTINE 21 MG PATCH.TD24 TD (00:16)
[2023-11-09] MEDS: ENOXAPARIN SODIUM 40 MG/0.4 ML SYRINGE SUBQ ×2 (00:50→22:31)
[2023-11-09] MEDS: 0.9 % SODIUM CHLORIDE 1,000 ML 100 ML IV ×3 (00:50→20:46)
[2023-11-09] MEDS: POTASSIUM CHLORIDE 10 MEQ ER TABLET 40 MEQ PO (00:51)
--- OUTSIDE RECORDS SUMMARY | 2023-11-09 00:59 | XMS_ITS | CCD ---
Author Name Unknown Address [address] [place] [address] Organization [facility] Care Team Providers Care Air Analysis Technician Name Role Phone Corina Cook MD Primary Care Provider [phone] SHEY FARR Attending Unavailable [place] FAROO[employer] Consulting [...] Corina Cook MD Primary Care Provider [phone] MD Jr Sinha Attending Provider [phone] NON STAFF Primary Care Provider Unavailswetha rosa [...] Unavailable Corina Cook MD Primary Care Provider CORINA COOK Primary Care Unavailable RAGHAVENDRA NEGRETE [...] oral tablet (2 sources) Dihydropyridine Calcium Channel Zeonn Start: 06-15-20 take 1 tablet by mouth [...] USE UTD 0 08/08/2017 Active Start: 08-08-2017 VersionEyeTOUCH ULTRA 2 kit USE UTD 0 08/08/2017 [...] mg docusate sodium 50 mg / sennosides, group home 8.6 mg oral tablet (1 source) Start: [...] Start: 02-21-2018 take 1 capsule by mo [facility] in the morning, then take 1 capsule [...] Taking at Discharge) take 4 tablets by [facility] three times daily midodrine (PROAMATINE) 2.5 MG [...] Start: 09-22-2020 take 1 capsule by mo [facility] twice daily morphine ER (ALLYSSA) 30 mg [...] RELIEF SEEK MEDICAL HELP polyethylene glycol [phone] mg powder for oral solution (10 sources) [...] Discontinued (Therapy completed) take 2 tablets by [facility] once daily tamoxifen (NOLVADEX) 10 MG tablet [...] Coronary atherosclerosis; Translations: [Atherosclerotic heart disease of [place] coronary artery without angina pectoris] Onset: 0 [...] aftercare (10 sources) Patient encounter status; Translations: [snf (current) use of antithrombotics/antipl atelets] Onset: 0 [...] [Moles/Vol] 9 mmol/L Normal 5-15 [facility] Comment on above: Performed By: #### C MP, 5643-2, 40767-5, CBCA, 37228-0 #### [facility] ([id number]) [address] [place] [address], [place] [address] Calcium [Mass/Vol] 8.9 mg/dL Normal 8.5-10.5 [facility] Comment on above: Performed By: #### C TERRA, 5643-2, 81966-3, CBCNuris, 07749-2 #### [facility] ([id number]) [address] [place] [address] 83191 Chloride [Moles/Vol] 104 mmol/L Normal 98-109 [facility] Comment on above: Performed By: #### Jolene ELLISON, 5643-2, 37257-5, MELISSA, 67265-7 #### [facility] ([id number]) [address] [place] [address] 39516 CO2 [Moles/Vol] 26 mmol/L Normal 22-32 [facility] Comment on above: Performed By: #### C TERRA, 5643-2, 71416-5, MELISSA, 21331-8 #### [facility] ([id number]) [address] [place] [address] 58546 Creatinine [Mass/Vol] 0.76 mg/dL Normal 0.40-1.00 [facility] Comment on above: Result Comment: METH OD TRACEABLE TO IDMS STANDARD Performed By: #### C TERRA, 5643-2, 77748-9, MELISSA, 02306-2 #### [facility] ([id number]) [address] [place] [address] 83766 GFR/1.73 sq M.predicted among non-blacks MDRD (S/P/Bld) [Vol rate/Area] 89 mL/min/{1.73_m2} Normal >59 Pr [facility] Comment on above: Result Comment: Reported eGFR is based on the CKD-EPI 2020 equation that does not use a race coefficient. Performed By: #### C TERRA, 5643-2, 92636-9, MELISSA, 56735-2 #### [facility] ([id number]) [address] [place] [address] 21806 Glucose [Mass/Vol] 127 mg/dL High 65-99 [facility] Comment on above: Performed By: #### C TERRA, 5643-2, 53168-9, CBCA, 89118-0 #### [facility] ([id number]) [address] [place] [address] 59058 Potassium [Moles/Vol] 3.5 mmol/L Normal 3.5-5.0 [facility] Comment on above: Performed By: #### Jolene ELLISON, 5643-2, 15959-1, CBCA, 28658-9 #### [facility] ([id number]) [address] [place] [address] 39790 Sodium [Moles/Vol] 139 mmol/L Normal 134-146 [facility] Comment on above: Performed By: #### Jolene ELLISON, 5643-2, 55120-2, CBCA, 29111-8 #### [facility] ([id number]) [address] [place] [address] 12910 Urea nitrogen [Mass/Vol] 13 mg/dL Normal 5-27 [facility] Comment on above: Performed By: #### Jolene ELLISON, 5643-2, 76604-2, CBCA, 65918-7 #### [facility] ([id number]) [address] [place] [address] 08638 Basic Metabolic Panelon 01-0 Anion gap [Moles/Vol] 9 mmol/L 5 - 15 mmol/L [facility] Calcium [Mass/Vol] 8.9 mg/dL 8.5 - 10. 5 mg/dL [facility] Chloride [Moles/Vol] 104 mmol/L 98 - 10 9 mmol/L [facility] CO2 [Moles/Vol] 26 mmol/L 22 - 32 mmol/L [facility] Creatinine [Mass/Vol] 0.76 mg/dL 0.40 - 1.00 mg/dL [facility] Comment on above: METHOD TRACEABLE TO IDTN STANDARD eGFR (CKD-EPI)non-race dependent 89 - PINF [facility] Comment on above: Reported eGFR is based on the CKD-EPI 2020 equation that does not use a race coefficient. Glucose [Mass/Vol] 127 mg/dL High 65 - 99 mg/dL [facility] Interpretation and review of laboratory results Abnormal [facility] Potassium [Moles/Vol] 3.5 mmol/L 3.5 - 5.0 mmol/L [facility] Sodium [Moles/Vol] 139 mmol/L 134 - 146 mmol/L [facility] Urea nitrogen [Mass/Vol] 13 mg/dL 5 - 27 mg/dL [facility] CBC AND AUTO DIFFon 10-21-19 24 ABSOLUTE BASOPHIL 0.1 X10E9/L Normal 0.0-0.2 [facility] Comment on above: Performed By: #### C TERRA, 5643-2, 23715-6, CBCA, 01394-0 #### [facility] ([id number]) [address] [place] [address] 77611 ABSOLUTE NEUTROPHIL 9.0 X10E9/L High 1.5-6.6 [facility] Comment on above: Performed By: #### C TERRA, 5643-2, 51673-0, CBCA, 37482-9 #### [facility] ([id number]) [address] [place] [address] 83077 Basophils/100 WBC (Bld) 0.5 % Normal [facility] Comment on above: Performed By: #### Jolene ELLISON, 5643-2, 98513-8, CBCA, 83554-3 #### [facility] ([id number]) [address] [place] [address] 98672 Eosinophils (Bld) [#/Vol] 0.0 10*3/uL Normal 0.0-0.4 [facility] Comment on above: Performed By: #### C TERRA, 5643-2, 58091-7, CBCA, 66692-0 #### [facility] ([id number]) [address] [place] [address] 75482 Eosinophils/100 WBC (Bld) 0.1 % Normal [facility] Comment on above: Performed By: #### C TERRA, 5643-2, 60793-8, CBCA, 66311-6 #### [facility] ([id number]) [address] [place] [address] 78096 Erythrocyte distribution width (RBC) [Ratio] 16.3 % High 11.5-15.0 [facility] Comment on above: Performed By: #### C TERRA, 5643-2, 44245-1, CBCA, #### [facility] ([id number]) [address] [place] [address] 39678 Hematocrit (Bld) [Volume fraction] 33.1 % Low 35-47 [facility] Comment on above: Performed By: #### C TERRA, 5643-2, 29421-1, CBCA, #### [facility] ([id number]) [address] [place] [address] 96665 Hemoglobin (Bld) [Mass/Vol] 10.8 g/dL Low 11.7-15.5 [facility] Comment on above: Performed By: #### C TERRA, 5643-2, , CBCA, #### [facility] ([id number]) [address] [place] [address] 51368 Lymphocytes (Bld) [#/Vol] 1.4 10*3/uL Normal 1.0-3.5 [facility] Comment on above: Performed By: #### C TERRA, 5643-2, 90350-4, CBCA, 90568-8 #### [facility] ([id number]) [address] [place] [address] 34416 Lymphocytes/100 WBC (Bld) 12.1 % Normal [facility] Comment on above: Performed By: #### C TERRA, 5643-2, 81528-5, CBCA, #### [facility] ([id number]) [address] [place] [address] 27678 MCH (RBC) [Entitic mass] 28.7 pg Normal 27-34 [facility] Comment on above: Performed By: #### C TERRA, 5643-2, 39608-2, CBCA, #### [facility] ([id number]) [address] [place] [address] 27077 MCHC (RBC) [Mass/Vol] 32.7 g/dL Normal 32-36 [facility] Comment on above: Performed By: #### C TERRA, 5643-2, 92824-7, CBCA, #### [facility] ([id number]) [address] [place] [address] 04598 MCV (RBC) [Entitic vol] 88 fL Normal 80-100 P [facility] Comment on above: Performed By: #### C TERRA, 5643-2, , CBCA, #### [facility] ([id number]) [address] [place] [address] 75176 Monocytes (Bld) [#/Vol] 0.9 10*3/uL Normal 0-0.9 [facility] Comment on above: Performed By: #### C TERRA, 5643-2, , CBCA, #### [facility] ([id number]) [address] [place] [address] 68655 Monocytes/100 WBC (Bld) 8.0 % Normal P [facility] Comment on above: Performed By: #### C TERRA, 5643-2, 71402-4, CBCA, #### [facility] ([id number]) [address] [place] [address] 78617 Neutrophils/100 WBC (Bld) 79.3 % Normal [facility] Comment on above: Performed By: #### C TERRA, 5643-2, 04787-8, CBCA, 17657-1 #### [facility] ([id number]) [address] [place] [address] 38890 Platelet mean volume (Bld) [Entitic vol] 9.1 fL Normal 7-12 [facility] Comment on above: Performed By: #### Jolene ELLISON, 5643-2, 89529-4, CBCA, 17387-7 #### [facility] ([id number]) [address] [place] [address] 19016 Platelets (Bld) [#/Vol] 342 10*3/uL Normal 150-450 [facility] Comment on above: Performed By: #### Jolene ELLISON, 5643-2, 94893-3, CBCA, 90335-1 #### [facility] ([id number]) [address] [place] [address] 31967 RBC COUNT 3.78 X10E12/L Low 3.80-5.20 [facility] Comment on above: Performed By: #### Jolene ELLISON, 5643-2, 05613-2, CBCA, 91774-3 #### [facility] ([id number]) [address] [place] [address] 99589 WBC (Bld) [#/Vol] 11.3 10*3/uL High 4.0-11.0 [facility] Comment on above: Performed By: #### Jolene ELLISON, 5643-2, 77463-3, CBCA, 61284-8 #### [facility] ([id number]) [address] [place] [address] 22061 CBC auto differentialon -0 Basophils (Bld) [#/Vol] 0.1 10*3/uL [facility] Basophils/100 WBC (Bld) 0.5 % P [facility] Eosinophils (Bld) [#/Vol] 0.0 10*3/uL [facility] Monocytes/100 WBC (Bld) 8.0 % P [facility] Neutrophils (Bld) [#/Vol] 9.0 10*3/uL [...] 10-20-19 ABSOLUTE BASOPHIL 0.1 X10E9/L Normal 0.0-0.2 [facility] Comment on above: Performed By: #### C BCA #### [facility] ([id number]) [address] [place] [address], [place] [address] ABSOLUTE NEUTROPHIL 5.9 X10E9/L Normal 1.5-6.6 [facility] Comment on above: Performed By: #### C BCA #### [facility] ([id number]) [address] [place] [address] 92078 Basophils/100 WBC (Bld) 0.7 % Normal [facility] Comment on above: Performed By: #### C BCA #### [facility] ([id number]) [address] [place] [address] 10744 Eosinophils (Bld) [#/Vol] 0.1 10*3/uL Normal 0.0-0.4 [facility] Comment on above: Performed By: #### C BCA #### [facility] ([id number]) [address] [place] [address] 68037 Eosinophils/100 WBC (Bld) 1.4 % Normal [facility] Comment on above: Performed By: #### C BCA #### [facility] ([id number]) [address] [place] [address] 19259 Erythrocyte distribution width (RBC) [Ratio] 16.3 % High 11.5-15.0 [facility] Comment on above: Performed By: #### C BCA #### [facility] ([id number]) [address] [place] [address] 00403 Hematocrit (Bld) [Volume fraction] 31.3 % Low 35-47 [facility] Comment on above: Performed By: #### C BCA #### [facility] ([id number]) [address] [place] [address] 73019 Hemoglobin (Bld) [Mass/Vol] 10.2 g/dL Low 11.7-15.5 [facility] Comment on above: Performed By: #### C BCA #### [facility] ([id number]) [address] [place] [address] 19129 Lymphocytes (Bld) [#/Vol] 2.2 10*3/uL Normal 1.0-3.5 [facility] Comment on above: Performed By: #### C BCA #### [facility] ([id number]) [address] [place] [address] 84614 Lymphocytes/100 WBC (Bld) 24.0 % Normal [facility] Comment on above: Performed By: #### C BCA #### [facility] ([id number]) [address] [place] [address] 98636 MCH (RBC) [Entitic mass] 29.0 pg Normal 27-34 [facility] Comment on above: Performed By: #### C BCA #### [facility] ([id number]) [address] [place] [address] 03125 MCHC (RBC) [Mass/Vol] 32.5 g/dL Normal 32-36 [facility] Comment on above: Performed By: #### C BCA #### [facility] ([id number]) [address] [place] [address] 41339 MCV (RBC) [Entitic vol] 89 fL Normal 80-100 [facility] Comment on above: Performed By: #### C BCA #### [facility] ([id number]) [address] [place] [address] 96333 Monocytes (Bld) [#/Vol] 0.9 10*3/uL Normal 0-0.9 [facility] Comment on above: Performed By: #### C BCA #### [facility] ([id number]) [address] [place] [address] 96897 Monocytes/100 WBC (Bld) 9.8 % Normal [facility] Comment on above: Performed By: #### C BCA #### [facility] ([id number]) [address] [place] [address] 19333 Neutrophils/100 WBC (Bld) 64.1 % Normal [facility] Comment on above: Performed By: #### C BCA #### [facility] ([id number]) [address] [place] [address] 00891 Platelet mean volume (Bld) [Entitic vol] 8.8 fL Normal 7-12 [facility] Comment on above: Performed By: #### C BCA #### [facility] ([id number]) [address] [place] [address] 98581 Platelets (Bld) [#/Vol] 306 10*3/uL Normal 150-450 [facility] Comment on above: Performed By: #### C BCA #### [facility] ([id number]) [address] [place] [address] 57630 RBC COUNT 3.51 X10E12/L Low 3.80-5.20 [facility] Comment on above: Performed By: #### C BCA #### [facility] ([id number]) [address] [place] [address] 44968 WBC (Bld) [#/Vol] 9.2 10*3/uL Normal 4.0-11.0 [facility] Comment on above: Performed By: #### C BCA #### [facility] ([id number]) [address] [place] [address] 95602 CBC auto differentialon -0 Basophils (Bld) [#/Vol] 0.1 10*3/uL [facility] Basophils/100 WBC (Bld) 0.7 % [facility] Eosinophils (Bld) [#/Vol] 0.1 10*3/uL [facility] Eosinophils/100 WBC (Bld) 1.4 % [facility] Erythrocyte distribution width (RBC) [Ratio] 16.3 % High 11.5 - 15.0 % [facility] Hematocrit (Bld) [Volume fraction] 31.3 % Low 35 - 47 % [facility] Hemoglobin (Bld) [Mass/Vol] 10.2 g/dL Low 11.7 - 15.5 g/dL [facility] Interpretation and review of laboratory results Abnormal [facility] Lymphocytes (Bld) [#/Vol] 2.2 10*3/uL [facility] Lymphocytes/100 WBC (Bld) 24.0 % [facility] MCH (RBC) [Entitic mass] 29.0 pg 27 - [address] [facility] MCHC (RBC) [Mass/Vol] 32.5 g/dL 32 - 3 6 g/dL [facility] MCV (RBC) [Entitic vol] 89 fL 80 - [address] [facility] Monocytes (Bld) [#/Vol] 0.9 10*3/uL [facility] Monocytes/100 WBC (Bld) 9.8 % P [facility] Neutrophils (Bld) [#/Vol] 5.9 10*3/uL [facility] Neutrophils/100 WBC (Bld) 64.1 % [facility] Platelet mean volume (Bld) [Entitic vol] 8.8 fL 7 - [address] [facility] Platelets (Bld) [#/Vol] 306 10*3/uL [facility] RBC (Bld) [#/Vol] 3.51 10*6/uL Low [facility] WBC corrected for nucl RBC Auto (Bld) [#/Vol] 9.2 [facility] DRUG SCREEN, URINEon 024 AMPHETAMINE/METHAMP Negative Normal NEG [facility] Comment on above: Result Comment: AMPH /METH screening cut off = 1000 ng/mL Performed By: #### C TERRA, 5643-2, 44022-6, CBCA, 00314-5 #### [facility] ([id number]) [address] [place] [address], [place] [address] BARBITURATES Negative Normal NEG [facility] Comment on above: Result Comment: Blessing iturates screening cut off value = 200 ng/mL Performed By: #### C MP, 5643-2, 94595-5, CBCA, 32334-2 #### [facility] ([id number]) [address] [place] [address] 99982 BENZODIAZEPINES Positive Abnormal NEG [facility] Comment on above: Result Comment: Conf irmation available upon request. Benzodiazepines screening cut off value = 200 ng/mL Performed By: #### C TERRA, 5643-2, 98540-1, CBCA, 42377-5 #### [facility] ([id number]) [address] [place] [address] 17272 CANNABINOIDS Negative Normal NEG [facility] Comment on above: Result Comment: Rudy abinoids/THC screening cut off value = 50 ng/mL Performed By: #### C TERRA, 5643-2, 53959-6, CBCA, #### [facility] ([id number]) [address] [place], [place] [address] COCAINE METABOLITE Negative Normal NEG [facility] Comment on above: Result Comment: Coca ine screening cut off value = 300 ng/mL Performed By: #### C TERRA, 5643-2, 82115-1, CBCA, 37256-6 #### [facility] ([id number]) [address] [place] [address] 82760 ECSTASY Negative Normal NEG [facility] Comment on above: Result Comment: Ecst asy screening cut off value = 500 ng/mL This report is intended for use in clinical monitoring or management of patients. Performed By: #### C TERRA, 5643-2, 44742-9, CBCA, 03118-0 #### [facility] ([id number]) [address] [place], [place] [address] METHADONE Negative Normal NEG [facility] Comment on above: Result Comment: Meth adone screening cut off value = 300 ng/mL. Performed By: #### C TERRA, 5643-2, 30705-5, CBCA, 72880-0 #### [facility] ([id number]) [address] [place] [address] 59760 OPIATES Positive Abnormal NEG [facility] Comment on above: Result Comment: Conf irmation available upon request. Opiates screening cut off value = 300 ng/mL NOTE: This test is used for the detection of codeine, hydrocodone (>1000 ng/mL), morphine and hydromorphone (>900 ng/mL) in urine. Performed By: #### C TERRA, 5643-2, 85922-2, CBCA, 29280-9 #### [facility] ([id number]) [address] [place] [address] 79617 OXYCODONE Positive Abnormal NEG [facility] Comment on above: Result Comment: Conf irmation available upon request. Oxycodone screening cut off value = 300 ng/mL NOTE: This test is used for the detection of oxycodone and oxymorphone in urine. Performed By: #### C TERRA, 5643-2, 98145-9, CBCNuris, 17022-9 #### [facility] ([id number]) [address] [place] [address] 39075 PHENCYCLIDINE Negative Normal NEG [facility] Comment on above: Result Comment: Phen cyclidine screening cut off value = 25 ng/mL Performed By: #### C TERRA, 5643-2, 46827-8, CBCA, 76509-9 #### [facility] ([id number]) [address] [place] [address] 88960 Drug Screen, Urineon 024 Amphetamines Screen method >1000 ng/mL Ql (U) Negative Negative^N egative [facility] Comment on above: AMPH/METH screening cut off = 1000 ng/mL Barbiturates Screen Ql (U) Negative Negative^N egative [facility] Comment on above: Barbiturates screeni ng cut off value = 200 ng/mL Benzodiazepines Ql (U) Positive Abnormal Negat ernestina^N egative [facility] Comment on above: Confirmation availab le upon request. Benzodiazepines screening cut off value = 200 ng/mL Cocaine Ql (U) Negative Negative^N [facility] Comment on above: Cocaine screening cu t off value = 300 ng/mL Interpretation and review of laboratory results Abnormal [facility] Methadone Screen Ql (U) Negative Nega tive^N [facility] Comment on above: Methadone screening cut off value = 300 ng/mL. Methylenedioxymethampheta mine Screen Ql (U) Negative Negative^N [facility] Comment on above: Ecstasy screening cu t off value = 500 ng/mL This report is intended for use in clinical monitoring or management of patients. Opiates Screen Ql (U) Positive Abnormal Negati ve^N [facility] Comment on above: Confirmation availab le upon request. Opiates screening cut off value = 300 ng/mL NOTE: This test is used for the detection of codeine, hydrocodone (>1000 ng/mL), morphine and hydromorphone (>900 ng/mL) in urine. oxyCODONE Ql (U) Positive Abnormal Negative^N [facility] Comment on above: Confirmation availab le upon request. Oxycodone screening cut off value = 300 ng/mL NOTE: This test is used for the detection of oxycodone and oxymorphone in urine. Phencyclidine Screen method >25 ng/mL Ql (U) Negative Negative^N [facility] Comment on above: Phencyclidine screen ing cut off value = 25 ng/mL Tetrahydrocannabinol Screen method >50 ng/mL Ql (U) Negative Negative^N [facility] Comment on above: Cannabinoids/THC scr eening cut off value = 50 ng/mL [facility] ECG 12 leadon 10-20-2023 TRACEMASTERVUE [facility] Procalcitoninon 10-20-2023 Procalcitonin IA [Mass/Vol] 0.07 ng/mL High NINF - 0.05 ng/mL [facility] Comment on above: NOTE <0.50 ng/mL - Low risk of severe sepsis and/or septic shock. <2.00 ng/mL - Recommend retesting within 6-24 hours. >2.00 ng/mL - High risk of sepsis and/or septic shock. Procalcitonin IA [Mass/Vol]o n 10-20-2023 PROCALCITONIN 0.07 ng/mL High <0.05 [facility] Comment on above: Result Comment: NOTE <0.50 ng/mL - Low risk of severe sepsis and/or septic shock. <2.00 ng/mL - Recommend retesting within 6-24 hours. >2.00 ng/mL - High risk of sepsis and/or septic shock. Performed By: #### C TERRA, 5643-2, 24677-1, CBCA, 58387-6 #### [facility] ([id number]) [address] [place] [address] 43344 Interpretation and review of laboratory results Abnormal [facility] URINALYSISon 10-20-2023 Bilirubin Ql (U) Negative Normal NEG [facility] Comment on above: Performed By: #### Jolene ELLISON, 5643-2, 21536-8, CBCA, 02216-4 #### [facility] ([id number]) [address] [place] [address] 76003 BLOOD/HGB Negative Normal NEG [facility] Comment on above: Performed By: #### C TERRA, 5643-2, 70285-4, CBCA, 14914-4 #### [facility] ([id number]) [address] [place] [address] 61549 Color (U) YELLOW Normal YELLOW [facility] Comment on above: Performed By: #### C TERRA, 5643-2, 46617-2, CBCA, 11734-4 #### [facility] ([id number]) [address] [place] [address] 68791 Glucose Ql (U) Negative Normal NEG [facility] Comment on above: Performed By: #### C TERRA, 5643-2, 91684-0, CBCA, 86376-9 #### [facility] ([id number]) [address] [place] [address] 68944 Ketones Ql (U) Negative Normal NEG [facility] Comment on above: Performed By: #### C TERRA, 5643-2, 86081-5, CBCA, 25990-8 #### [facility] ([id number]) [address] [place] [address] 84005 Leukocyte esterase Test strip Ql (U) Negative Normal NEG [facility] Comment on above: Performed By: #### Jolene ELLISON, 5643-2, 79401-7, CBCA, #### [facility] ([id number]) [address] [place] [address] 00997 Nitrite Ql (U) Negative Normal NEG [facility] Comment on above: Performed By: #### C TERRA, 5643-2, 61185-2, CBCA, 44992-1 #### [facility] ([id number]) [address] [place] [address] 61832 pH (U) 6.0 [pH] Normal 5.0-8.5 [facility] Comment on above: Performed By: #### Jolene ELLISON, 5643-2, 83151-3, CBCA, #### [facility] ([id number]) [address] [place] [address] 78428 Protein Ql (U) Negative Normal NEG [facility] Comment on above: Performed By: #### Jolene ELLISON, 5643-2, 99381-3, CBCA, 04017-1 #### [facility] ([id number]) [address] [place] [address] 16343 Specific gravity (U) [Rel density] 1.010 Normal 1.003-1.03 5 [facility] Comment on above: Performed By: #### Jolene ELLISON, 5643-2, 94379-0, CBCA, #### [facility] ([id number]) [address] [place] [address] 96635 TURBIDITY CLEAR Normal CLEAR [facility] Comment on above: Performed By: #### C TERRA, 5643-2, 53241-7, CBCA, 91732-4 #### [facility] ([id number]) [address] [place] [address] 08112 Urobilinogen Qn (U) 0.2 {Mikayla'U}/dL Normal <1.1 [facility] Comment on above: Performed By: #### C TERRA, 5643-2, 08028-3, CBCA, 96643-7 #### [facility] ([id number]) [address] [place] [address] 10173 URINE CULTUREon 10-20-2023 Bacteria identified Cx Nom (U) CULTURE RESULTS <10,000 ORGANISMS/ML NORMAL URO GENITAL JYOTI Normal [facility] Comment on above: Performed By: #### C TERRA, 5643-2, 71607-9, CBCA, 47630-6 #### [facility] ([id number]) [address] [place] [address] 69172 Urinalysison 10-20-2023 Bilirubin Ql (U) Negative Negative^N egative [facility] Color (U) YELLOW YELLOW^YEL LOW [facility] Glucose (U) [Mass/Vol] Negative Negat ernestina^N egative mg/dL [facility] Hemoglobin Auto test strip Ql (U) Negative Negative^N egative [facility] Ketones (U) [Mass/Vol] Negative Negat ernestina^N egative mg/dL [facility] Leukocyte esterase Auto test strip Ql (U) Negative Negative^N egative [facility] Nitrite Auto test strip Ql (U) Negative Negative^N egative [facility] pH (U) 6.0 [pH] 5.0 - 8.5 [facility] Protein (U) [Mass/Vol] Negative Negat ernestina^N egative mg/dL [facility] Specific gravity Refractometry automated (U) [Rel density] 1.010 1.003 - 1.035 [facility] Turbidity Ql (U) CLEAR CLEAR^ARABELLA R [facility] Urobilinogen Qn (U) 0.2 NINF ProMe dica [facility] AMMONIAon 10-19-2023 Ammonia (P) [Moles/Vol] 15 umol/L Normal 11-35 P [facility] Comment on above: Performed By: #### 1 6362-6 #### [facility] ([id number]) [address] [place] [address] 97831 Ammoniaon 10-19-2023 Ammonia (P) [Moles/Vol] 15 umol/L 11 - 35 umol/L [facility] Ammonia (P) [Moles/Vol]on [facility] BLOOD CULTUREon 10-19-2023 Bacteria identified Aer cx Nom (Bld) CULTURE RESULTS NO GROWTH 5 DAYS Normal [facility] Bacteria identified Aer cx Nom (Bld) CULTURE RESULTS NO GROWTH 5 DAYS Normal [facility] CBC AND AUTO DIFFon 10-19-19 24 ABSOLUTE BASOPHIL 0.0 X10E9/L Normal 0.0-0.2 [facility] Comment on above: Performed By: #### C TERRA, 5643-2, 84308-2, CBCA, 23028-6 #### [facility] ([id number]) [address] [place] [address] 20619 ABSOLUTE NEUTROPHIL 4.8 X10E9/L Normal 1.5-6.6 [facility] Comment on above: Performed By: #### C TERRA, 5643-2, 52405-7, CBCA, 71590-1 #### [facility] ([id number]) [address] [place] [address] 26781 Basophils/100 WBC (Bld) 0.6 % Normal P [facility] Comment on above: Performed By: #### C TERRA, 5643-2, 76456-3, CBCA, 67593-8 #### [facility] ([id number]) [address] [place] [address] Eosinophils (Bld) [#/Vol] 0.1 10*3/uL Normal 0.0-0.4 [facility] Comment on above: Performed By: #### C TERRA, 5643-2, 80306-9, CBCA, 62695-6 #### [facility] ([id number]) [address] [place] [address] 09435 Eosinophils/100 WBC (Bld) 1.8 % Normal [facility] Comment on above: Performed By: #### C TERRA, 5643-2, 01037-1, CBCA, #### [facility] ([id number]) [address] [place] [address] 12567 Erythrocyte distribution width (RBC) [Ratio] 15.9 % High 11.5-15.0 [facility] Comment on above: Performed By: #### C TERRA, 5643-2, , CBCA, 52650-2 #### [facility] ([id number]) [address] [place] [address] 85561 Hematocrit (Bld) [Volume fraction] 38.5 % Normal 35-47 [facility] Comment on above: Performed By: #### C TERRA, 5643-2, 88886-5, CBCA, 78850-6 #### [facility] ([id number]) [address] [place] [address] 59469 Hemoglobin (Bld) [Mass/Vol] 12.5 g/dL Normal 11.7-15.5 [facility] Comment on above: Performed By: #### C TERRA, 5643-2, 90394-1, CBCA, #### [facility] ([id number]) [address] [place] [address] 65931 Lymphocytes (Bld) [#/Vol] 2.2 10*3/uL Normal 1.0-3.5 [facility] Comment on above: Performed By: #### C MP, 5643-2, 76961-1, CBCA, 83339-1 #### [facility] ([id number]) [address] [place] [address] 49903 Lymphocytes/100 WBC (Bld) 28.2 % Normal [facility] Comment on above: Performed By: #### C TERRA, 5643-2, 87348-3, CBCA, #### [facility] ([id number]) [address] [place] [address] 44367 MCH (RBC) [Entitic mass] 28.6 pg Normal 27-34 [facility] Comment on above: Performed By: #### C TERRA, 5643-2, 53913-6, CBCA, #### [facility] ([id number]) [address] [place] [address] 38414 MCHC (RBC) [Mass/Vol] 32.4 g/dL Normal 32-36 [facility] Comment on above: Performed By: #### C TERRA, 5643-2, 88777-4, CBCA, 70700-7 #### [facility] ([id number]) [address] [place] [address] 30586 MCV (RBC) [Entitic vol] 88 fL Normal 80-100 [facility] Comment on above: Performed By: #### C TERRA, 5643-2, 87039-2, CBCA, 82642-6 #### [facility] ([id number]) [address] [place] [address] 13529 Monocytes (Bld) [#/Vol] 0.7 10*3/uL Normal 0-0.9 [facility] Comment on above: Performed By: #### C TERRA, 5643-2, 76176-4, CBCA, #### [facility] ([id number]) [address] [place] [address] [place] [address] Monocytes/100 WBC (Bld) 8.7 % Normal [facility] Comment on above: Performed By: #### C TERRA, 5643-2, 22580-5, CBCA, 63075-2 #### [facility] ([id number]) [address] [place] [address] 36487 Neutrophils/100 WBC (Bld) 60.7 % Normal [facility] Comment on above: Performed By: #### C TERRA, 5643-2, 17772-6, CBCA, #### [facility] ([id number]) [address] [place] [address] 14001 Platelet mean volume (Bld) [Entitic vol] 8.9 fL Normal 7-12 [facility] Comment on above: Performed By: #### C TERRA, 5643-2, 18638-0, CBCA, 36810-3 #### [facility] ([id number]) [address] [place] [address] 63569 Platelets (Bld) [#/Vol] 333 10*3/uL Normal 150-450 [facility] Comment on above: Performed By: #### C TERRA, 5643-2, 87842-0, CBCA, #### [facility] ([id number]) [address] [place] [address] 19045 RBC COUNT 4.37 X10E12/L Normal 3.80-5.20 [facility] Comment on above: Performed By: #### C TERRA, 5643-2, 01186-7, CBCA, #### [facility] ([id number]) [address] [place] [address] 11475 WBC (Bld) [#/Vol] 7.9 10*3/uL Normal 4.0-11.0 [facility] Comment on above: Performed By: #### C TERRA, 5643-2, 58191-1, CBCA, 56515-6 #### [facility] ([id number]) [address] [facility] [place] [address] CBC auto differentialon Basophils (Bld) [#/Vol] 0.0 [...] for nucl RBC Auto (Bld) [#/Vol] 7.9 [facility] COMPREHENSIVE METABOLIC PANE Tramaine 10-19-2023 Albumin [Mass/Vol] 3.8 g/dL Normal 3.2-5.3 [facility] Comment on above: Performed By: #### C TERRA, 5643-2, 99439-5, CBCA, 35224-0 #### [facility] ([id number]) [address] [place] [address] 13477 ALP [Catalytic activity/Vol] 87 U/L Normal 39-130 [facility] Comment on above: Performed By: #### C TERRA, 5643-2, 04317-2, CBCA, 71594-2 #### [facility] ([id number]) [address] [place] [address] 35119 ALT [Catalytic activity/Vol] 29 U/L Normal 0-31 [facility] Comment on above: Performed By: #### C TERRA, 5643-2, 02425-6, CBCA, 44576-3 #### [facility] ([id number]) [address] [place] [address] 66335 Anion gap [Moles/Vol] 11 mmol/L Normal 5-15 [facility] Comment on above: Performed By: #### C TERRA, 5643-2, 78605-6, CBCA, 31176-8 #### [facility] ([id number]) [address] [place] [address] 10463 AST [Catalytic activity/Vol] 19 U/L Normal 0-41 [facility] Comment on above: Performed By: #### C TERRA, 5643-2, 11045-7, CBCA, 95150-3 #### [facility] ([id number]) [address] [place] [address] 27446 Bilirubin [Mass/Vol] 0.7 mg/dL Normal 0.3-1.2 [facility] Comment on above: Performed By: #### C TERRA, 5643-2, 93205-9, CBCA, 17823-7 #### [facility] ([id number]) [address] [place] [address] 15280 Calcium [Mass/Vol] 9.1 mg/dL Normal 8.5-10.5 [facility] Comment on above: Performed By: #### C TERRA, 5643-2, 38131-9, CBCA, 59478-0 #### [facility] ([id number]) [address] [place] [address] 29818 Chloride [Moles/Vol] 101 mmol/L Normal 98-109 [facility] Comment on above: Performed By: #### C TERRA, 5643-2, 13746-9, CBCA, 68489-4 #### [facility] ([id number]) [address] [place] [address] 05491 CO2 [Moles/Vol] 27 mmol/L Normal 22-32 [facility] Comment on above: Performed By: #### Jolene ELLISON, 5643-2, 53710-2, CBCA, 58846-4 #### [facility] ([id number]) [address] [place] [address] 94386 Creatinine [Mass/Vol] 1.15 mg/dL High 0.40-1.00 [facility] Comment on above: Result Comment: METH OD TRACEABLE TO IDMS STANDARD Performed By: #### C TERRA, 5643-2, 62009-0, CBCA, 77892-4 #### [facility] ([id number]) [address] [place] [address] 32847 GFR/1.73 sq M.predicted among non-blacks MDRD (S/P/Bld) [Vol rate/Area] 54 mL/min/{1.73_m2} Low >59 Pr [facility] Comment on above: Result Comment: Reported eGFR is based on the CKD-EPI 2020 equation that does not use a race coefficient. Performed By: #### C TERRA, 5643-2, 60880-3, CBCA, 35485-7 #### [facility] ([id number]) [address] [place] [address] 27490 Glucose [Mass/Vol] 77 mg/dL Normal 65-99 [facility] Comment on above: Performed By: #### C TERRA, 5643-2, 21334-4, CBCA, 47938-1 #### [facility] ([id number]) [address] [place] [address] 19578 Potassium [Moles/Vol] 3.4 mmol/L Low 3.5-5.0 [facility] Comment on above: Performed By: #### C TERRA, 5643-2, 87166-9, CBCA, 61370-8 #### [facility] ([id number]) [address] [place] [address] 81975 Protein [Mass/Vol] 7.9 g/dL Normal 6.0-8.0 [facility] Comment on above: Performed By: #### C TERRA, 5643-2, 14256-9, CBCA, 63552-2 #### [facility] ([id number]) [address] [place] [address] 18657 Sodium [Moles/Vol] 139 mmol/L Normal 134-146 [facility] Comment on above: Performed By: #### C TERRA, 5643-2, 75243-1, CBCA, 08589-1 #### [facility] ([id number]) [address] [place] [address] 22791 Urea nitrogen [Mass/Vol] 16 mg/dL Normal 5-27 [facility] Comment on above: Performed By: #### C TERRA, 5643-2, 25235-6, CBCA, 23322-2 #### [facility] ([id number]) [address] [place] [address] 04352 Comprehensive metabolic pane tramaine 10-19-2023 Albumin [Mass/Vol] 3.8 g/dL 3.2 - 5.3 g/dL [facility] ALP [Catalytic activity/Vol] 87 U/L 39 - 130 U/L [facility] ALT No additional P-5'-P [Catalytic activity/Vol] 29 U/L 0 - 31 U/L [facility] Anion gap [Moles/Vol] 11 mmol/L 5 - 15 mmol/L [facility] AST [Catalytic activity/Vol] 19 U/L 0 - 41 U/L [facility] Bilirubin [Mass/Vol] 0.7 mg/dL 0.3 - 1 .2 mg/dL [facility] Calcium [Mass/Vol] 9.1 mg/dL 8.5 - 10. 5 mg/dL [facility] Chloride [Moles/Vol] 101 mmol/L 98 - 10 9 mmol/L [facility] CO2 [Moles/Vol] 27 mmol/L 22 - 32 mmol/L [facility] Creatinine [Mass/Vol] 1.15 mg/dL High 0.40 - 1.00 mg/dL [facility] Comment on above: METHOD TRACEABLE TO [facility] STANDARD eGFR (CKD-EPI)non-race dependent 54 Low - PINF [facility] Comment on above: Reported eGFR is based on the CKD-EPI 2020 equation that does not use a race coefficient. Glucose [Mass/Vol] 77 mg/dL 65 - 99 mg/dL [facility] Interpretation and review of laboratory results Abnormal [facility] Potassium [Moles/Vol] 3.4 mmol/L Low 3.5 - 5.0 mmol/L [facility] Protein [Mass/Vol] 7.9 g/dL 6.0 - 8.0 g/dL [facility] Sodium [Moles/Vol] 139 mmol/L 134 - 146 mmol/L [facility] Urea nitrogen [Mass/Vol] 16 mg/dL 5 - 27 mg/dL [facility] ETHANOLon 10-19-2023 Ethanol [Mass/Vol] mg/dL Normal 0.00-0.08 [facility] Comment on above: Result Comment: This report is intended for use in clinical monitoring or management of patients. Performed By: #### C TERRA, 5643-2, 24249-6, CBCA, 53829-8 #### [facility] ([id number]) [address] [place] [address] 93715 Ethanolon 10-19-2023 Ethanol [Mass/Vol] g/dL 0.00 - 0.08 g/dL [facility] Comment on above: This report is intended for use in clinical monitoring or management of patients. Laboratory - Microbiology an d Antimicrobial susceptibilityon 10-19-2023 FLUAV+FLUBV RNA MARQUITA+probe Ql (Unsp spec) Negative Negative^N egative [facility] MAGNESIUMon 10-19-2023 Magnesium [Mass/Vol] 2.0 mg/dL Normal 1.8-2.6 [facility] Comment on above: Performed By: #### C TERRA, 5643-2, 11692-4, CBCA, 74300-4 #### [facility] ([id number]) [address] [place] [address] 99297 Magnesiumon 10-19-2023 Magnesium [Mass/Vol] 2.0 mg/dL 1.8 - 2 .6 mg/dL [facility] No Panel Informationon 10-19 [facility] SARS/FLU A+B/RSV by NAAT/Mol ecularon 10-19-2023 SARS/FLU [...] operators who are performing tests using either [employer] or [employer] systems and is limited to laboratories that [...] repeat. Fact Sheet for Healthcare Providers: https://www.fda.gov/ media/529010/downloa d Fact Sheet for Patients: https://www.fda.gov/ media/851695/downloa d Normal [facility] Comment on above: Performed By: #### C OVFLR #### [facility] ([id number]) [address] [place] [address], [place] [address] SARS/FLU A+B/RSV by NAAT/Mol ecular (M4RT Collection Tube)on 10-19-2023 Interpretation and review of laboratory results Abnormal [facility] RSV RNA MARQUITA+probe Nom (Unsp spec) Negative Negative^N egative [facility] SARS-CoV-2 (COVID-19) RNA MARQUITA+probe Ql (Resp) Detected Abnormal Not Detected^N ot Detected [facility] Comment on above: NOTE The Xpert Xpress [...] operators who are performing tests using either [employer] DX or Stratoscale systems and is limited to laboratories that [...] specimen repeat. Fact Sheet for Healthcare Providers: https://www.fda.gov/media/157827/download Fact Sheet for Patients: https://www.fda.gov/media/141563/download [facility] TROPONIN Ion 10-19-2023 Troponin I.cardiac [Mass/Vol] ng/mL Normal 0.00-0.04 [facility] Comment on above: Performed By: #### C MP, 5643-2, 67488-9, CBCA, 54581-0 #### [facility] ([id number]) [address] [place] [address], [place] [address] Troponin Ion 10-19-2023 Troponin I.cardiac [Mass/Vol] ng/mL 0.00 - 0.04 ng/mL [facility] Troponin I.cardiac [Mass/Vol ]on 10-19-2023 [facility] XR CHEST 1 VWon 10-19-2023 XR CHEST [...] Hendrix MD on 10/19/2023 7:53 PM Normal [facility] XR Chest Single viewon 10-19 CLINICAL [...] Shivam Hendrix MD on 10/19/2023 7:53 PM [employer] Radiology Study observation (narrative) [facility] [facility] XR Chest Single viewOrdered By: Shivam Hendrix on 10-19-2023 [employer] Work Phone: CT CHEST WO CONTon CT [...] Ramírez MD on 10/18/2023 10:15 AM Normal [facility] 08-31-2023 CNPN Telephone (GASTNO) HONEY MONTES ([id number]) 1960 F Date Time Provider Department 08/31/23 [...] If patient calls back, please transfer to [phone] or [phone]. Andres Martinezina 09/12/2023 9:07 AM Signed FINAL ATTEMPT Called and left detailed message for patient to call to schedule procedure with gastroenterology. Will follow up. Patient provided with direct extension to reach surgical coordinators. If patient calls back, please transfer to [phone] or [phone]. Allergies As of Date: 08/31/2023 (No Known Allergies) Date Reviewed: 08/25/2023 Reviewed by: Torrie Moreno RN - Fully Assessed Reason for Visit: Orders [681] Appointment [186] Primary Visit Diagnosis:Intestinal metaplasia of stomach [K31.A0] Order(s):EGD DIAGNOSTIC [GI9] Order #: [id number] FUTURE Prescriptions as of 09/12/2023 - isosorbide [...] 1 mg by mouth. - Blood-Glucose Meter ([employer] ULTRA2 METER) monitoring kit USE UTD - [...] as nee (more content not included)... Normal [facility] ANES POSTPROC EVALon 023 ANES POSTPROC EVAL HNO ID: [id number] Author: Ruben Davis MD Service: Anesthesiology Author [...] Scheduled Providers: Rosana Mchugh MD; Gabriela Morgan APRN.STEAM [employer] POWER SUPERINTENDENT; Ruben Davis MD; Samara Cade RN Responsible [...] August 25, 2023 TIME: 10:15 AM CSN: [id number] [facility] ANES PRE-OPon 08-25-2023 ANES PRE-OP HNO ID: [id number] Author: Ruben Davis MD Service: Anesthesiology Author Type: Anesthesiologist Type: Anesthesia Preprocedure Evaluation Filed: 08/25/2023 7:31 AM Note Text: ANESTHESIOLOGY DAY OF SURGERY NOTE : 1960 Procedure Information Date/Time: 08/25/2330 Scheduled providers: Rosana Mchugh MD; Gabriela Morgan APRN.[employer] POWER SUPERINTENDENT; Ruben Davis MD; Samara Cade RN Procedure: EGD DIAGNOSTIC Location: Procedures Estimated body mass index is 20.43 kg/m? as calculated from the following: Height as of 06/15/23: 162.6 cm (5' 4 ). Weight as of 07/11/23: 54 kg (119 lb). Most recent hematocrit and potassium results: Hematocrit 34.8 09/13/2020 Potassium 4.0 08/26/2022 Relevant Problems CARDIO (+) Atherosclerotic heart disease of [place] coronary artery without angina pectoris (+) Essential [...] (Patient not taking: (more content not included)... [facility] HISTORY PHYSICALon HISTORY PHYSICAL HNO ID: [id number] Author: Rosana Mchugh MD Service: Gastroenterology Author [...] MAC Additional Comments: None Rosana Mchugh MD [facility] SURGICAL PATHOLOGYon 023 ADDENDUM 1: [facility] Comment on above: Order Comment: Speci men Type: TISSUE SPECIMEN Ordering Facility: [facility] Address: [address] [place] [address] Result Comment: Tawana maddox the background of chronic gastritis, a Helicobacter pylori immunostain is performed on block B and is negative for Helicobacter pylori organisms. Laboratory Developed Test (LDT) Disclaimer: Performance characteristics of immunohistochemical, immunofluorescent and chromogenic in-situ hybridization tests have been determined by the performing laboratory within [facility] [place] ([facility], [facility], [facility], [facility], [facility], [facility], [facility]) in a manner consistent with CLIA requirements. [...] AM Performed By: #### S #### [facility] CLIA [id number] [address] [place] [address] LAB CLIA [id number] [address] [place] [address] CASE REPORT [facility] Comment on above: Order Comment: Speci men Type: TISSUE SPECIMEN Ordering Facility: [facility] Address: [address] [place] [address] Result Comment: [facility] Pathology Report Case: [id number] Authorizing Provider: Rosana Mchugh MD Collected: 08/25/2023 07:43 AM Ordering Location: Procedures Received: 08/25/2023 07:59 AM Pathologist: Rangel Sheehan MD Specimens: A) - SMALL INTESTINE BIOPSY B) - STOMACH BIOPSY Performed By: #### S #### [facility] CLIA [id number] [address] [place] [address] LAB CLIA [id number] [address] [place] [address] DIAGNOSIS COMMENT B. Immunohistochemical staining for Helicobacter pylori organisms is pending; the result will be reported as an addendum. [facility] Comment on above: Order Comment: Miryam men Type: TISSUE SPECIMEN Ordering Facility: [facility] Address: [address] [place] [address] Performed By: #### S #### [facility] CLIA [id number] [address] [place] [address] LAB CLIA [id number] [address] [place] [address] FINAL DIAGNOSIS Normal [facility] Comment on above: Order Comment: Speci men Type: TISSUE SPECIMEN Ordering Facility: [facility] Address: [address] [place] [address] Result Comment: A. S mall intestine, biopsy: - Small intestinal mucosa with no pathologic diagnostic abnormality; negative for celiac disease, granulomas or dysplasia. B. Stomach, biopsy: - Gastric antral body type mucosa with intestinal metaplasia; see comment. Performed By: #### S #### [facility] CLIA [id number] [address] [place] [address] [place] [facility] CLIA [id number] [address] [place] [address] OF [place] FINAL PERFORMING LAB Normal [facility] Comment on above: Order Comment: Speci men Type: TISSUE SPECIMEN Ordering Facility: [facility] Address: [address] [place] [address] Result Comment: Diag nostic interpretation performed at [facility], [id number] [place] [address] CLIA# [id number] Instructor Knitting: Rangel Sheehan M.D. Performed By: #### S #### [facility] CLIA [id number] [place] [address] [place] [facility] CLIA [id number] [address] [place] [address] GROSS DESCRIPTION Normal [facility] Comment on above: Order Comment: Speci men Type: TISSUE SPECIMEN Ordering Facility: [facility] Address: [address] [place] [address] Result Comment: A. S MALL INTESTINE BIOPSY [...] 2023 4:15 PM Gross examination performed at [facility], [address] [place] [address] Performed By: #### S #### [facility] CLIA [id number] [address] [place], [place] [id number] [place] [facility] CLIA [id number] [address] [facility] [address] OF FLO Upper GI endoscopy 023 Upper GI endoscopy [facility] Gastrointestinal Endoscopy Patient Name: Honey Montes Procedure Date: 08/25/2023 7:13 AM Date of : 1960 Admit Type: Outpatient Age: 63 Room: [place] [address] Gender: Female Note Status: Finalized Attending MD: [...] Blood Loss: Estimated blood loss: none. Normal [facility] 07-11-2023 [facility] Office Visit (FVGAST) HONEY MONTES ([id number]) 1960 F Date Time Provider Department 07/11/23 [...] % Neutrophils (more content not included)... Normal [facility] CNPNon 07-11-2023 CNPN Telephone ([id number]) HONEY MONTES ([id number]) 1960 F Date Time Provider Department 07/11/23 ROSANA MCHUGH [id number] During your visit today, we recorded the following information about you: Sophie Smith 07/11/2023 11:01 AM Signed Please call patient at [phone] to set up an EGD. This is [...] scheduled for 08/[address] [place] Allergies As of Date: 07/11/2023 (No Known [...] 1 mg by mouth. 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 Normal [facility] upper GI small bowelon DC upper GI small bowel [facility] Main [place] [address] [place], [place] [id number] Fluoroscopy Report Signed Patient: Honey Montes MR#: [id number] 02 : 1960 Acct:[id number] Age/Sex: 63 / F ADM Date: 06/26/23 Loc: XD Room: Type: [facility] Attending Dr: Jr Sinha MD Copies to: Jr Sinha MD Ordering Provider: Jr Sinha MD Date of Service: 06/26/23 FL/DC upper GI small bowel: C7A.8 AIR CONTRAST [...] DO 06/26/23 122 Signed By: 06/26/23 1228 [facility] CNOVliana 06-15-2023 CNOV Office Visit ([id number]) HONEY MONTES ([id number]) 1960 F Date Time Provider Department 06/15/23 1:45 PM JR SINHA [id number] During your visit today, we recorded the [...] with resection of mesenteric mass, End-to-side duodenojejunostomy, Wsvj-[id number] jejunojejunostomy, Resection of the jejunojejunostomy, Cholecystectomy. 01/13/2022 s/p marginal ulcer perforation repair Chart Review: -ER OSH for acute abdominal pain [facility] Discharge Summary 06/06/23 INTERVAL HPI: She was in the [facility] ER recently and underwent a CT scan [...] which included preparing to see the patient, [id number] patient care, completing clinical documentation, obtaining and/or [...] imaging appointment. You can schedule at any [facility] facility using this appointment number. Your surgeon will determine follow up and plan of care after review of imaging. If you questions, please call our office at [phone]. 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 - ferrous sulfate 325 mg (65 mg iron) tablet Take 325 mg by mouth daily with breakfast. - pantoprazole DR (PROTONIX) 4 (more content not included)... Normal [facility] CNPDominique 12-05-2022 CNPN Telephone (GAPRA3) HONEY MONTES ([id number]) 1960 F Date Time Provider Department 12/05/22 GENE QUIROZ During your visit today, we recorded the following information about you: Gene Quiroz RN 12/05/2022 9:43 AM Signed Spoke with patient who states that her traffic signal repairer told her to reschedule this appointment. 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 Absolute Lymph # 1.75 [facility] [employer] Absolute [place] # 0.71 [facility] Basophils (Bld) [#/Vol] 0.05 10*3/uL [facility] Basophils/100 WBC (Bld) 0 % 0 - 2 % B ON [facility] Eosinophils/100 WBC (Bld) 1 % 1 - 4 % [facility] Hematocrit (Bld) [Volume fraction] 39.0 % 36.3 - 47.1 % [facility] Hemoglobin (Bld) [Mass/Vol] 12.7 g/dL 11.9 - 15.1 g/dL [facility] Immature granulocytes/100 WBC (Bld) 0 % 0 [facility] Interpretation and review of laboratory results Abnormal [facility] Lymphocytes/100 WBC (Bld) 13 % Low 24 - 43 % [facility] MCH (RBC) [Entitic mass] 28.7 pg 25. 2 - 33.5 pg [facility] MCHC (RBC) [Mass/Vol] 32.6 g/dL 28.4 - 34.8 g/dL [facility] MCV (RBC) [Entitic vol] 88.0 fL 82.6 - 102.9 fL [facility] Monocytes/100 WBC (Bld) 6 % 3 - 12 % B ON [facility] NRBC Automated 0.0 0.0 per 100 WBC [facility] Platelet distribution width (Bld) [Ratio] 16.3 % High 11.8 - 14.4 % [facility] Platelet mean volume (Bld) [Entitic vol] 10.0 fL 8.1 - 13.5 fL [facility] Platelets (Bld) [#/Vol] 276 10*3/uL [facility] RBC (Bld) [#/Vol] 4.43 10*6/uL 3.95 - 5.11 m/uL [facility] RBC (Bld) [#/Vol] ANISOCYTOSIS PRESENT [facility] Segmented neutrophils/100 WBC (Bld) 79 % High 36 - 65 % [facility] Segs Absolute 10.30 High [facility] WBC (Bld) [#/Vol] 13.0 10*3/uL High [facility] CBC with Diffon 06-15-2022 Abs. Basophil 0.05 k/uL Normal 0.00-0.20 [facility] Comment on above: Performed By: #### C DP #### [address] [address] Insurance Loss Control Surveyor: Peter Baer MD Abs.Imm.Granulocyte 0.05 k/uL Normal 0.00-0.30 [facility] Comment on above: Performed By: #### C DP #### [place] [address] Insurance Loss Control Surveyor: Peetr Baer MD Abs.Neutrophil (Seg) 10.30 k/uL High 1.50-8.10 [facility] Comment on above: Performed By: #### C DP #### [place] [address] Insurance Loss Control Surveyor: Peter Baer MD Basophils/100 WBC (Bld) 0 % Normal 0-2 [facility] Comment on above: Performed By: #### C DP #### [place] [address] Insurance Loss Control Surveyor: Peter Baer MD Eosinophils (Bld) [#/Vol] 0.16 10*3/uL Normal 0.00-0.4 4 [facility] Comment on above: Performed By: #### C DP #### [place] [address] Insurance Loss Control Surveyor: Peter Baer MD Eosinophils/100 WBC (Bld) 1 % Normal 1-4 [facility] Comment on above: Performed By: #### C DP #### [place] [address] Insurance Loss Control Surveyor: Peter Baer MD Erythrocyte distribution width (RBC) [Ratio] 16.3 % High 11.8-14.4 [facility] Comment on above: Performed By: #### C DP #### [address] [address] Insurance Loss Control Surveyor: Peter Baer MD Hematocrit (Bld) [Volume fraction] 39.0 % Normal 36.3-47.1 [facility] Comment on above: Performed By: #### C DP #### [address] [address] Insurance Loss Control Surveyor: Peter Baer MD Hemoglobin (Bld) [Mass/Vol] 12.7 g/dL Normal 11.9-15.1 [facility] Comment on above: Performed By: #### C DP #### [address] [address] Insurance Loss Control Surveyor: Peter Baer MD Immature granulocytes/100 WBC (Bld) 0 % Normal 0 [facility] Comment on above: Performed By: #### C DP #### [address] [address] Insurance Loss Control Surveyor: Peter Baer MD Lymphocytes (Bld) [#/Vol] 1.75 10*3/uL Normal 1.10-3.7 0 [facility] Comment on above: Performed By: #### C DP #### [address] [address] Insurance Loss Control Surveyor: Peter Baer MD Lymphocytes/100 WBC (Bld) 13 % Low 24-43 [facility] Comment on above: Performed By: #### C DP #### [address] [address] Insurance Loss Control Surveyor: Peter Baer MD MCH (RBC) [Entitic mass] 28.7 pg Normal 25.2-33.5 [facility] Comment on above: Performed By: #### C DP #### [address] [address] Insurance Loss Control Surveyor: Peter Baer MD MCHC (RBC) [Mass/Vol] 32.6 g/dL Normal 28.4-34.8 [facility] Comment on above: Performed By: #### C DP #### [place] [address] Insurance Loss Control Surveyor: Peter Baer MD MCV (RBC) [Entitic vol] 88.0 fL Normal 82.6-102.9 [facility] Comment on above: Performed By: #### C DP #### [place] [address] Insurance Loss Control Surveyor: Peter Baer MD Monocytes (Bld) [#/Vol] 0.71 10*3/uL Normal 0.10-1.20 [facility] Comment on above: Performed By: #### C DP #### [place] [address] Insurance Loss Control Surveyor: Peter Baer MD Monocytes/100 WBC (Bld) 6 % Normal 3-12 [facility] Comment on above: Performed By: #### C DP #### [place] [address] Insurance Loss Control Surveyor: Peter Baer MD Neutrophil (Seg) 79 % High 36-65 [facility] Comment on above: Performed By: #### C DP #### [place] [address] Insurance Loss Control Surveyor: Peter Baer MD NRBC Automated 0.0 per 100 WBC Normal 0.0 [facility] Comment on above: Performed By: #### C DP #### [place] [address] Insurance Loss Control Surveyor: Peter Baer MD Platelet mean volume (Bld) [Entitic vol] 10.0 fL Normal 8.1-13.5 [facility] Comment on above: Performed By: #### C DP #### [id number] [place] [address] Insurance Loss Control Surveyor: Peter Baer MD Platelets (Bld) [#/Vol] 276 10*3/uL Normal 138-453 [facility] Comment on above: Performed By: #### C DP #### [address] [address] Insurance Loss Control Surveyor: Peter Baer MD RBC (Bld) [#/Vol] 4.43 10*6/uL Normal 3.95-5.11 [facility] Comment on above: Performed By: #### C DP #### [address] [address] Insurance Loss Control Surveyor: Peter Baer MD RBC morphology finding Nom (Bld) ANISOCYTOSIS PRESENT Normal [facility] Comment on above: Performed By: #### C DP #### [address] [address] Insurance Loss Control Surveyor: Peter Baer MD WBC (Bld) [#/Vol] 13.0 10*3/uL High 3.5-11.3 [facility] Comment on above: Performed By: #### C DP #### [address] [address] Insurance Loss Control Surveyor: Peter Baer MD POC Glucose Fingerstickon Glucose [Mass/Vol] 135 mg/dL High 65 - 105 mg/dL [facility] Interpretation and review of laboratory results Abnormal [facility] Basic Metab w/rfx MGon 06-14 (cont.) Normal [facility] Comment on above: Result Comment: Aver age GFR for 60-69 years old: 85 mL/min/1.73sq m Chronic Kidney Disease: <60 mL/min/1.73sq m Kidney failure: <15 mL/min/1.73sq m eGFR calculated using average adult body mass. Additional eGFR calculator available at: http://www.HappyFactory.com/multiple_crcl_2012.htm Performed By: #### F MARCIALGUS ChaudhryBC, BMPX #### [address] [address] Insurance Loss Control Surveyor: Peter Baer MD Performed By: #### B MPX, FEBC, FERI #### [address] [address] Insurance Loss Control Surveyor: Peter Baer MD Anion gap [Moles/Vol] 11 mmol/L Normal 9-17 [facility] Comment on above: Performed By: #### F MARCIAL, FEBC, BMPX #### [address] [address] Insurance Loss Control Surveyor: Peter Baer MD Performed By: #### B MPX FEBC, FERI #### [address] [address] Insurance Loss Control Surveyor: Peter Baer MD Calcium [Mass/Vol] 8.4 mg/dL Low 8.6-10.4 [facility] Comment on above: Performed By: #### F MARCIAL FEBC, BMPX #### [address] [address] Insurance Loss Control Surveyor: Peter Baer MD Performed By: #### B MPX, FEBC, FERI #### [facility] [employer] [address] [place] [address] Insurance Loss Control Surveyor: Peter Baer MD Chloride [Moles/Vol] 108 mmol/L High 98-107 [facility] Comment on above: Performed By: #### F MARCIAL, FEBC, BMPX #### [facility] [employer] [address] [place] [address] Insurance Loss Control Surveyor: Peter Baer MD Performed By: #### B MPX, FEBC, FERI #### [facility] [employer] [address] [place] [address] Insurance Loss Control Surveyor: Peter Baer MD CO2 [Moles/Vol] 22 mmol/L Normal 20-31 [facility] Comment on above: Performed By: #### F MARCIAL, FEBC, BMPX #### [facility] [employer] [address] [place] [address] Insurance Loss Control Surveyor: Peter Baer MD Performed By: #### B MPX, FEBC, FERI #### [facility] [employer] [address] [place] [phone] Insurance Loss Control Surveyor: Peter Baer MD Creatinine [Mass/Vol] 0.41 mg/dL Low 0.50-0.90 [facility] Comment on above: Performed By: #### F MARCIAL, FEBC, BMPX #### [facility] [employer] [address] [place] [phone] Insurance Loss Control Surveyor: Peter Baer MD Performed By: #### B MPX, FEBC, FERI #### [facility] [employer] [address] [place] [address] Insurance Loss Control Surveyor: Peter Baer MD GFR, Amer >60 Normal >60 [facility] Comment on above: Performed By: #### F MARCIAL, FEBC, BMPX #### [facility] [employer] [address] [place] [phone] Insurance Loss Control Surveyor: Peter Baer MD Performed By: #### B MPX, FEBC, FERI #### [facility] [employer] [address] [place] [address] Insurance Loss Control Surveyor: Peter Baer MD GFR,non Amer >60 Normal >60 [facility] Comment on above: Performed By: #### F MARCIAL, FEBC, BMPX #### [facility] [employer] [address] [place] [address] Insurance Loss Control Surveyor: Peter Baer MD Performed By: #### B MPX, FEBC, FERI #### [address] [address] Insurance Loss Control Surveyor: Peter Baer MD Glucose [Mass/Vol] 97 mg/dL Normal 70-99 [facility] Comment on above: Performed By: #### F MARCIAL, FEBC, BMPX #### [address] [address] Insurance Loss Control Surveyor: Peter Baer MD Performed By: #### B MPX, FEBC, FERI #### [address] [address] Insurance Loss Control Surveyor: Peter Baer MD Potassium [Moles/Vol] 4.0 mmol/L Normal 3.7-5.3 [facility] Comment on above: Performed By: #### F MARCIAL, FEBC, BMPX #### [address] [address] Insurance Loss Control Surveyor: Peter Baer MD Performed By: #### B MPX, FEBC, FERI #### [address] [address] Insurance Loss Control Surveyor: Peter Baer MD Sodium [Moles/Vol] 141 mmol/L Normal 135-144 [facility] Comment on above: Performed By: #### F MARCIAL, FEBC, BMPX #### [facility] [employer] [address] [place] [address] Insurance Loss Control Surveyor: Peter Baer MD Performed By: #### B MPX, FEBC, FERI #### [facility] [employer] [address] [place] [address] Insurance Loss Control Surveyor: Peter Baer MD Urea nitrogen [Mass/Vol] 9 mg/dL Normal 8-23 [facility] Comment on above: Performed By: #### F MARCIAL, FEBC, BMPX #### [employer] [address] [place], [place] [id number] Insurance Loss Control Surveyor: Peter Baer MD Performed By: #### B MPX, KELLEN, HENRY #### [facility] [employer] [address] [place], [place] [phone] Insurance Loss Control Surveyor: Peter Baer MD Basic Metabolic Panel w/ Ref tiffanie to MGon 06-14-2022 Anion gap [Moles/Vol] 11 mmol/L 9 - 17 mmol/L [facility] [employer] Calcium [Mass/Vol] 8.4 mg/dL Low 8.6 - 10. 4 mg/dL [facility] [employer] Chloride [Moles/Vol] 108 mmol/L High 98 - 10 7 mmol/L [facility] [employer] CO2 [Moles/Vol] 22 mmol/L 20 - 31 mmol/L [facility] Creatinine [Mass/Vol] 0.41 mg/dL Low 0.5 - 0.9 mg/dL [facility] GFR >60 60 - PI NF mL/min [facility] GFR Non- >60 60 - PINF mL/min [facility] GFR/1.73 sq M.predicted MDRD (S/P/Bld) [Vol rate/Area] [facility] Comment on above: Average GFR for 60-6 9 years old: 85 mL/min/1.73sq m Chronic Kidney Disease: <60 mL/min/1.73sq m Kidney failure: <15 mL/min/1.73sq m eGFR calculated using average adult body mass. Additional eGFR calculator available at: http://www.HappyFactory.[employer]obimedia/multiple_crcl_2012.htm Glucose [Mass/Vol] 97 mg/dL 70 - 99 mg/dL [facility] Interpretation and review of laboratory results Abnormal [facility] [employer] Potassium [Moles/Vol] 4.0 mmol/L 3.7 - 5.3 mmol/L [facility] [employer] Sodium [Moles/Vol] 141 mmol/L 135 - 144 mmol/L [facility] Urea nitrogen (BldV) [Mass/Vol] 9 mg/dL 8 - 23 mg/dL [facility] CBC with Auto Differentialon 06-14-2022 Absolute Eos # 0.[address] [facility] Absolute Immature Granulocyte [facility] Absolute Lymph # 3.10 [facility] Absolute [place] # 0.49 [facility] Basophils (Bld) [#/Vol] 0.06 10*3/uL [facility] Basophils/100 WBC (Bld) 1 % 0 - 2 % B ON [facility] Eosinophils/100 WBC (Bld) 2 % 1 - 4 % [facility] Hematocrit (Bld) [Volume fraction] 34.5 % Low 36.3 - 47.1 % [facility] Hemoglobin (Bld) [Mass/Vol] 11.2 g/dL Low 11.9 - 15.1 g/dL [facility] Immature granulocytes/100 WBC (Bld) 0 % 0 [facility] Interpretation and review of laboratory results Abnormal [facility] Lymphocytes/100 WBC (Bld) 35 % 24 - 43 % [facility] MCH (RBC) [Entitic mass] 29.5 pg 25. 2 - 33.5 pg [facility] MCHC (RBC) [Mass/Vol] 32.5 g/dL 28.4 - 34.8 g/dL [facility] MCV (RBC) [Entitic vol] 90.8 fL 82.6 - 102.9 fL [facility] Monocytes/100 WBC (Bld) 6 % 3 - 12 % [facility] ON [facility] NRBC Automated 0.0 0.0 per 100 WBC [facility] Platelet distribution width (Bld) [Ratio] 16.6 % High 11.8 - 14.4 % [facility] Platelet mean volume (Bld) [Entitic vol] 10.0 fL 8.1 - 13.5 fL [facility] Platelets (Bld) [#/Vol] 257 10*3/uL [facility] RBC (Bld) [#/Vol] 3.80 10*6/uL Low 3.95 - 5.11 m/uL [facility] RBC (Bld) [#/Vol] ANISOCYTOSIS PRESENT [facility] Segmented neutrophils/100 WBC (Bld) 56 % 36 - 65 % [facility] Segs Absolute 4.98 [facility] WBC (Bld) [#/Vol] 8.8 10*3/uL [facility] Absolute Eos # 0.18 [facility] Absolute Immature Granulocyte 0.03 [facility] Absolute Lymph # 2.83 [facility] Absolute [place] # 0.[address] [facility] Basophils (Bld) [#/Vol] 0.05 10*3/uL [facility] Basophils/100 WBC (Bld) 1 % 0 - 2 % [facility] ON [facility] Eosinophils/100 WBC (Bld) 2 % 1 - 4 % [facility] Hematocrit (Bld) [Volume fraction] 36.1 % Low 36.3 - 47.1 % [facility] Hemoglobin (Bld) [Mass/Vol] 11.3 g/dL Low 11.9 - 15.1 g/dL [facility] Immature granulocytes/100 WBC (Bld) 0 % 0 [facility] Interpretation and review of laboratory results Abnormal [place] [facility] Lymphocytes/100 WBC (Bld) 30 % 24 - 43 % [facility] MCH (RBC) [Entitic mass] 28.6 pg 25. 2 - 33.5 pg [facility] MCHC (RBC) [Mass/Vol] 31.3 g/dL 28.4 - 34.8 g/dL [facility] MCV (RBC) [Entitic vol] 91.4 fL 82.6 - 102.9 fL [facility] Monocytes/100 WBC (Bld) 7 % 3 - 12 % [facility] ON [facility] NRBC Automated 0.0 0.0 per 100 WBC [facility] Platelet distribution width (Bld) [Ratio] 16.9 % High 11.8 - 14.4 % [facility] Platelet mean volume (Bld) [Entitic vol] 10.3 fL 8.1 - 13.5 fL [facility] Platelets (Bld) [#/Vol] 281 10*3/uL [facility] RBC (Bld) [#/Vol] 3.95 10*6/uL 3.95 - 5.11 m/uL [facility] RBC (Bld) [#/Vol] ANISOCYTOSIS PRESENT [facility] Segmented neutrophils/100 WBC (Bld) 60 % 36 - 65 % [facility] Segs Absolute 5.68 [facility] WBC (Bld) [#/Vol] 9.4 10*3/uL [facility] CBC with Diffon 06-14-2022 Abs. Basophil 0.06 k/uL Normal 0.00-0.20 [facility] Comment on above: Performed By: #### C DP #### [place] [address] Insurance Loss Control Surveyor: Peter Baer MD Abs.Imm.Granulocyte <0.03 Normal 0.00-0.30 [facility] Comment on above: Performed By: #### C DP #### [place] [address] Insurance Loss Control Surveyor: Peter Baer MD Abs.Neutrophil (Seg) 4.98 k/uL Normal 1.50-8.10 [facility] Comment on above: Performed By: #### C DP #### [address] [address] Insurance Loss Control Surveyor: Peter Baer MD Basophils/100 WBC (Bld) 1 % Normal 0-2 [facility] Comment on above: Performed By: #### C DP #### [address] [address] Insurance Loss Control Surveyor: Peter Baer MD Eosinophils (Bld) [#/Vol] 0.20 10*3/uL Normal 0.00-0.4 4 [facility] Comment on above: Performed By: #### C DP #### [address] [address] Insurance Loss Control Surveyor: Peter Baer MD Eosinophils/100 WBC (Bld) 2 % Normal 1-4 [facility] Comment on above: Performed By: #### C DP #### [address] [address] Insurance Loss Control Surveyor: Peetr Baer MD Erythrocyte distribution width (RBC) [Ratio] 16.6 % High 11.8-14.4 [facility] Comment on above: Performed By: #### C DP #### [address] [address] Insurance Loss Control Surveyor: Peter Baer MD Hematocrit (Bld) [Volume fraction] 34.5 % Low 36.3-47.1 [facility] Comment on above: Performed By: #### C DP #### [address] [address] Insurance Loss Control Surveyor: Peter Baer MD Hemoglobin (Bld) [Mass/Vol] 11.2 g/dL Low 11.9-15.1 [facility] Comment on above: Performed By: #### C DP #### [address] [address] Insurance Loss Control Surveyor: Peter Baer MD Immature granulocytes/100 WBC (Bld) 0 % Normal 0 [facility] Comment on above: Performed By: #### C DP #### [place] [address] Insurance Loss Control Surveyor: Peter Baer MD Lymphocytes (Bld) [#/Vol] 3.10 10*3/uL Normal 1.10-3.7 0 [facility] Comment on above: Performed By: #### C DP #### [address] [address] Insurance Loss Control Surveyor: Peter Baer MD Lymphocytes/100 WBC (Bld) 35 % Normal 24-43 [facility] Comment on above: Performed By: #### C DP #### [address] [address] Insurance Loss Control Surveyor: Peter Baer MD MCH (RBC) [Entitic mass] 29.5 pg Normal 25.2-33.5 [facility] Comment on above: Performed By: #### C DP #### [address] [address] Insurance Loss Control Surveyor: Peter Baer MD MCHC (RBC) [Mass/Vol] 32.5 g/dL Normal 28.4-34.8 [facility] Comment on above: Performed By: #### C DP #### [place] [address] Insurance Loss Control Surveyor: Peter Baer MD MCV (RBC) [Entitic vol] 90.8 fL Normal 82.6-102.9 [facility] Comment on above: Performed By: #### C DP #### [place] [address] Insurance Loss Control Surveyor: Peter Baer MD Monocytes (Bld) [#/Vol] 0.49 10*3/uL Normal 0.10-1.20 [facility] Comment on above: Performed By: #### C DP #### [place] [address] Insurance Loss Control Surveyor: Peter Baer MD Monocytes/100 WBC (Bld) 6 % Normal 3-12 [facility] Comment on above: Performed By: #### C DP #### [address] [address] Insurance Loss Control Surveyor: Peter Baer MD Neutrophil (Seg) 56 % Normal 36-65 [facility] Comment on above: Performed By: #### C DP #### [address] [address] Insurance Loss Control Surveyor: Peter Baer MD NRBC Automated 0.0 per 100 WBC Normal 0.0 [facility] Comment on above: Performed By: #### C DP #### [place] [address] Insurance Loss Control Surveyor: Peter Baer MD Platelet mean volume (Bld) [Entitic vol] 10.0 fL Normal 8.1-13.5 [facility] Comment on above: Performed By: #### C DP #### [place] [address] Insurance Loss Control Surveyor: Peter Baer MD Platelets (Bld) [#/Vol] 257 10*3/uL Normal 138-453 [facility] Comment on above: Performed By: #### C DP #### [place] [address] Insurance Loss Control Surveyor: Peter Baer MD RBC (Bld) [#/Vol] 3.80 10*6/uL Low 3.95-5.11 [facility] Comment on above: Performed By: #### C DP #### [place] [address] Insurance Loss Control Surveyor: Peter Baer MD RBC morphology finding Nom (Bld) ANISOCYTOSIS PRESENT Normal [facility] Comment on above: Performed By: #### C DP #### [place] [address] Insurance Loss Control Surveyor: Peter Baer MD WBC (Bld) [#/Vol] 8.8 10*3/uL Normal 3.5-11.3 [facility] Comment on above: Performed By: #### C DP #### [address] [address] Insurance Loss Control Surveyor: Peter Baer MD Abs. Basophil 0.05 k/uL Normal 0.00-0.20 [facility] Comment on above: Performed By: #### C DP #### [address] [address] Insurance Loss Control Surveyor: Peter Baer MD Performed By: #### C OVRB #### [address] [address] Insurance Loss Control Surveyor: Peter Baer MD Abs.Imm.Granulocyte 0.03 k/uL Normal 0.00-0.30 [facility] Comment on above: Performed By: #### C DP #### [place] [address] Insurance Loss Control Surveyor: Peter Baer MD Performed By: #### C OVRB #### [place] [address] Insurance Loss Control Surveyor: Peter Baer MD Abs.Neutrophil (Seg) 5.68 k/uL Normal 1.50-8.10 [facility] Comment on above: Performed By: #### C DP #### [place] [address] Insurance Loss Control Surveyor: Peter Baer MD Performed By: #### C OVRB #### [place] [address] Insurance Loss Control Surveyor: Peter Baer MD Basophils/100 WBC (Bld) 1 % Normal 0-2 [facility] Comment on above: Performed By: #### C DP #### [place] [address] Insurance Loss Control Surveyor: Peter Baer MD Performed By: #### C OVRB #### [place] [address] Insurance Loss Control Surveyor: Peter Baer MD Eosinophils (Bld) [#/Vol] 0.18 10*3/uL Normal 0.00-0.4 4 [facility] Comment on above: Performed By: #### C DP #### [address] [address] Insurance Loss Control Surveyor: Peter Baer MD Performed By: #### C OVRB #### [address] [address] Insurance Loss Control Surveyor: Peter Baer MD Eosinophils/100 WBC (Bld) 2 % Normal 1-4 [facility] Comment on above: Performed By: #### C DP #### [address] [address] Insurance Loss Control Surveyor: Peter Baer MD Performed By: #### C OVRB #### [address] [address] Insurance Loss Control Surveyor: Peter Baer MD Immature granulocytes/100 WBC (Bld) 0 % Normal 0 [facility] Comment on above: Performed By: #### C DP #### [address] [address] Insurance Loss Control Surveyor: Peter Baer MD Performed By: #### C OVRB #### [address] [address] Insurance Loss Control Surveyor: Peter Baer MD Lymphocytes (Bld) [#/Vol] 2.83 10*3/uL Normal 1.10-3.7 0 [facility] Comment on above: Performed By: #### C DP #### [address] [address] Insurance Loss Control Surveyor: Peter Baer MD Performed By: #### C OVRB #### [address] [address] Insurance Loss Control Surveyor: Peter Baer MD Lymphocytes/100 WBC (Bld) 30 % Normal 24-43 [facility] Comment on above: Performed By: #### C DP #### [address] [address] Insurance Loss Control Surveyor: Peter Baer MD Performed By: #### C OVRB #### [address] [address] Insurance Loss Control Surveyor: Peter Baer MD Monocytes (Bld) [#/Vol] 0.65 10*3/uL Normal 0.10-1.20 [facility] Comment on above: Performed By: #### C DP #### [address] [address] Insurance Loss Control Surveyor: Peter Baer MD Performed By: #### C OVRB #### [address] [address] Insurance Loss Control Surveyor: Peter Baer MD Monocytes/100 WBC (Bld) 7 % Normal 3-12 [facility] Comment on above: Performed By: #### C DP #### [address] [address] Insurance Loss Control Surveyor: Peter Baer MD Performed By: #### C OVRB #### [address] [address] Insurance Loss Control Surveyor: Peter Baer MD Neutrophil (Seg) 60 % Normal 36-65 [facility] Comment on above: Performed By: #### C DP #### [address] [address] Insurance Loss Control Surveyor: Peter Baer MD Performed By: #### C OVRB #### [address] [address] Insurance Loss Control Surveyor: Peter Baer MD Erythrocyte distribution width (RBC) [Ratio] 16.9 % High 11.8-14.4 [facility] Comment on above: Performed By: #### C DP #### [address] [address] Insurance Loss Control Surveyor: Peter Baer MD Performed By: #### C OVRB #### [address] [address] Insurance Loss Control Surveyor: Peter Baer MD Hematocrit (Bld) [Volume fraction] 36.1 % Low 36.3-47.1 [facility] Comment on above: Performed By: #### C DP #### [address] [address] Insurance Loss Control Surveyor: Peter Baer MD Performed By: #### C OVRB #### [address] [address] Insurance Loss Control Surveyor: Peter Baer MD Hemoglobin (Bld) [Mass/Vol] 11.3 g/dL Low 11.9-15.1 [facility] Comment on above: Performed By: #### C DP #### [address] [address] Insurance Loss Control Surveyor: Peter Baer MD Performed By: #### C OVRB #### [address] [address] Insurance Loss Control Surveyor: Peter Baer MD MCH (RBC) [Entitic mass] 28.6 pg Normal 25.2-33.5 [facility] Comment on above: Performed By: #### C DP #### [address] [address] Insurance Loss Control Surveyor: Peter Baer MD Performed By: #### C OVRB #### [address] [address] Insurance Loss Control Surveyor: Peter Baer MD MCHC (RBC) [Mass/Vol] 31.3 g/dL Normal 28.4-34.8 [facility] Comment on above: Performed By: #### C DP #### [address] [address] Insurance Loss Control Surveyor: Peter Baer MD Performed By: #### C OVRB #### [address] [address] Insurance Loss Control Surveyor: Peter Baer MD MCV (RBC) [Entitic vol] 91.4 fL Normal 82.6-102.9 [facility] Comment on above: Performed By: #### C DP #### [address] [address] Insurance Loss Control Surveyor: Peter Baer MD Performed By: #### C OVRB #### [address] [address] Insurance Loss Control Surveyor: Peter Baer MD NRBC Automated 0.0 per 100 WBC Normal 0.0 [facility] Comment on above: Performed By: #### C DP #### [address] [address] Insurance Loss Control Surveyor: Peter Baer MD Performed By: #### C OVRB #### [address] [address] Insurance Loss Control Surveyor: Peter Baer MD Platelet mean volume (Bld) [Entitic vol] 10.3 fL Normal 8.1-13.5 [facility] Comment on above: Performed By: #### C DP #### [address] [address] Insurance Loss Control Surveyor: Peter Baer MD Performed By: #### C OVRB #### [address] [address] Insurance Loss Control Surveyor: Peter Baer MD Platelets (Bld) [#/Vol] 281 10*3/uL Normal 138-453 [facility] Comment on above: Performed By: #### C DP #### [address] [address] Insurance Loss Control Surveyor: Peter Baer MD Performed By: #### C OVRB #### [address] [address] Insurance Loss Control Surveyor: Peter Baer MD RBC (Bld) [#/Vol] 3.95 10*6/uL Normal 3.95-5.11 [facility] Comment on above: Performed By: #### C DP #### [address] [address] Insurance Loss Control Surveyor: Peter Baer MD Performed By: #### C OVRB #### [address] [address] Insurance Loss Control Surveyor: Peter Baer MD RBC morphology finding Nom (Bld) ANISOCYTOSIS PRESENT Normal [facility] Comment on above: Performed By: #### C DP #### [address] [address] Insurance Loss Control Surveyor: Peter Baer MD Performed By: #### C OVRB #### [address] [address] Insurance Loss Control Surveyor: Peter Baer MD WBC (Bld) [#/Vol] 9.4 10*3/uL Normal 3.5-11.3 [facility] Comment on above: Performed By: #### C DP #### [address] [address] Insurance Loss Control Surveyor: Peter Baer MD Performed By: #### C OVRB #### [address] [address] Insurance Loss Control Surveyor: Peter Baer MD Catheterization and angiogra phy procedure details panelon 06-14-2022 Cardiac Diagnostic + PCI Report Demographics Patient JYOTI MÉNDEZ Date of Study 06/14/2022 Name Date of 1960 Gender Female Age 62 year(s) Race Room [id number]^ARMAS^SKIP Height: 65 inch, 165.1 cm Number Corporate [id number] Weight: 109 pounds, 49.4 kg ID # Patient [id number] BSA: 1.53 m^2 BMI: 18.14 kg/m^2 Acct # MR # [id number] Performing Physician Richard Lopez Referring Physician # [...] is ruptured. Comments:instent restenosis. Devices used - Dhir Diamonds Flex 180 cm. Number of passes: 1. [...] Right coronary angiography. Contrast Material: - Isovue 75479 ml Fluoroscopy Time: Diagnostic: 2:06 minutes. Total: 2:06 minutes. Medical History Allergies - *No Known Allergies. Risk Factors The patient risk factors include:last creatinine: 0.4 mg/dl and creatinine clearance: 115.28 ml/min. 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 PN STV CPA Richard Lopez MD - 06/14/2022 Cardiac Diagnostic + PCI Report Demographics Patient JYOTI MÉNDEZ Date of Study 06/14/2022 Name Date of 1960 Gender Female Age 62 year(s) Race Room [id number]^PRABHA Height: 65 inch, 165.1 cm Number Corporate [id number] Weight: 109 pounds, 49.4 kg ID # Patient [id number] BSA: 1.53 m^2 BMI: 18.14 kg/m^2 Acct # MR # [id number] Performing Physician Richard Lopez Referring Physician # [...] is ruptured. Comments:instent restenosis. Devices used - Dhir Diamonds Flex 180 cm. Number of passes: 1. - [facility] Euphora Balloon 3.0mm x 12mm. 3 inflation(s) [...] Right coronary angiography. Contrast Material: - Isovue 83264 ml Fluoroscopy Time: Diagnostic: 2:06 minutes. Total: 2:06 minutes. Medical History Allergies - *No Known Allergies. Risk Factors The patient risk factors include:last creatinine: 0.4 mg/dl and creatinine clearance: 115.28 ml/min. 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 Hemodynamics Condition: Baseline Room Air Estimated: 125.04Heart Rate: 36 bpm Pressure +-----+ + !Site !Pressure ! +-----+ (more content not included)... [employer] Phone: [employer] Phone: Catheterization and angiogra phy procedure details panelOrdered By: Richard Lopez on 06-14-2022 [employer] Phone: Ferritinon 06-14-2022 Ferritin [Mass/Vol] 22 ng/mL Normal 13-150 [facility] Comment on above: Performed By: #### KELLEN ROSALES, BMPX #### [facility] [address] [place] [address] Insurance Loss Control Surveyor: Peter Baer MD Performed By: ###Dajia Fernández DP #### [facility] [address] [place] [address] Insurance Loss Control Surveyor: Peter Baer MD Ferritin [Mass/Vol] 22 ng/mL 13 - 150 ng/mL [facility] Iron Binding Cap.on 06-14-20 22 % Fe Saturation 14 % Low 20-55 [facility] Comment on above: Performed By: #### F MARCIAL, FEBC, BMPX #### [address] [address] Insurance Loss Control Surveyor: Peter Baer MD Performed By: #### B MPX, FEBC, FERI #### [address] [address] Insurance Loss Control Surveyor: Peter Baer MD Iron [Mass/Vol] 53 ug/dL Normal 37-145 [facility] Comment on above: Performed By: #### F MARCIAL, FEBC, BMPX #### [address] [address] Insurance Loss Control Surveyor: Peter Baer MD Performed By: #### B MPX, FEBC, FERI #### [address] [address] Insurance Loss Control Surveyor: Peter Baer MD Total Fe Binding Cap 372 ug/dL Normal 250-450 [facility] Comment on above: Performed By: #### F MARCIAL, FEBC, BMPX #### [address] [address] Insurance Loss Control Surveyor: Peter Baer MD Performed By: #### B MPX, FEBC, FERI #### [address] [address] Insurance Loss Control Surveyor: Peter Baer MD Unbound Fe Bind Cap 319 ug/dL Normal 112-347 [facility] Comment on above: Performed By: #### F MARCIAL, FEBC, BMPX #### [address] [address] Insurance Loss Control Surveyor: Peter Baer MD Performed By: #### B MPX, FEBC, FERI #### [address] [address] Insurance Loss Control Surveyor: Peter Baer MD Iron and TIBCon 06-14-2022 Interpretation and review of laboratory results Abnormal [facility] Iron [Mass/Vol] 53 ug/dL 37 - 145 ug/dL [facility] Iron Saturation 14 % Low 20 - 55 % [facility] TIBC 372 ug/dL 250 - 450 ug/dL [facility] UIBC 319 ug/dL 112 - 347 ug/dL [facility] No Panel Informationon 06-14 [facility] POC Glucose Fingerstickon Glucose [Mass/Vol] 81 mg/dL 65 - 105 mg/dL [facility] Glucose [Mass/Vol] 62 mg/dL Low 65 - 105 mg/dL [facility] Interpretation and review of laboratory results Abnormal [facility] Glucose [Mass/Vol] 104 mg/dL 65 - 105 mg/dL [facility] Brain Natri. Peptideon 06-13 Natriuretic peptide B (Bld) [Mass/Vol] 371 pg/mL High <300 [facility] Comment on above: Result Comment: An age-independent cutoff point of 300 pg/ml has a 98% negative predictive value excluding acute heart failure. Performed By: #### C DP #### [facility] [address] [place], [place] [id number] Insurance Loss Control Surveyor: Peter Baer MD Brain natriuretic peptideon 06-13-2022 Natriuretic peptide B (Bld) [Mass/Vol] 371 pg/mL High NINF - 300 pg/mL [facility] Comment on above: An age-independent cutoff point of 300 pg/ml has a 98% negative predictive value excluding acute heart failure. CBCon 06-13-2022 Erythrocyte distribution width (RBC) [Ratio] 18.3 % High 11.8-14.4 [facility] Comment on above: Performed By: #### C DP #### [facility] [address] [place], [place] [id number] Insurance Loss Control Surveyor: Peter Baer MD Hematocrit (Bld) [Volume fraction] 31.5 % Low 36.3-47.1 [facility] Comment on above: Performed By: #### C DP #### [address] [address] Insurance Loss Control Surveyor: Peter Baer MD Hemoglobin (Bld) [Mass/Vol] 11.0 g/dL Low 11.9-15.1 [facility] Comment on above: Performed By: #### C DP #### [address] [address] Insurance Loss Control Surveyor: Peter Baer MD MCH (RBC) [Entitic mass] 31.1 pg Normal 25.2-33.5 [facility] Comment on above: Performed By: #### C DP #### [address] [address] Insurance Loss Control Surveyor: Peter Baer MD MCHC (RBC) [Mass/Vol] 34.9 g/dL High 28.4-34.8 [facility] Comment on above: Performed By: #### C DP #### [address] [address] Insurance Loss Control Surveyor: Peter Baer MD MCV (RBC) [Entitic vol] 89.0 fL Normal 82.6-102.9 [facility] Comment on above: Performed By: #### C DP #### [address] [address] Insurance Loss Control Surveyor: Peter Baer MD NRBC Automated 0.5 per 100 WBC High 0.0 [facility] Comment on above: Performed By: #### C DP #### [address] [address] Insurance Loss Control Surveyor: Peter Baer MD Platelet mean volume (Bld) [Entitic vol] 11.2 fL Normal 8.1-13.5 [facility] Comment on above: Performed By: #### C DP #### [place] [address] Insurance Loss Control Surveyor: Peter Baer MD Platelets (Bld) [#/Vol] 743 10*3/uL High 138-453 [facility] Comment on above: Performed By: #### C DP #### [facility] [address] [place], [place] [phone] Insurance Loss Control Surveyor: Peter Baer MD RBC (Bld) [#/Vol] 3.54 10*6/uL Low 3.95-5.11 [facility] Comment on above: Performed By: #### C DP #### [facility] [place], [place] [id number] Insurance Loss Control Surveyor: Peter Baer MD WBC (Bld) [#/Vol] 9.6 10*3/uL Normal 3.5-11.3 [facility] Comment on above: Performed By: #### C DP #### [facility] [address] [place], [place] [id number] Insurance Loss Control Surveyor: Peter Baer MD Hematocrit (Bld) [Volume fraction] 31.5 % Low 36.3 - 47.1 % [facility] Hemoglobin (Bld) [Mass/Vol] 11.0 g/dL Low 11.9 - 15.1 g/dL [facility] Interpretation and review of laboratory results Abnormal [facility] MCH (RBC) [Entitic mass] 31.1 pg 25. 2 - 33.5 pg [facility] MCHC (RBC) [Mass/Vol] 34.9 g/dL High 28.4 - 34.8 g/dL [facility] MCV (RBC) [Entitic vol] 89.0 fL 82.6 - 102.9 fL [facility] NRBC Automated 0.5 High 0.0 per 100 WBC [facility] Platelet distribution width (Bld) [Ratio] 18.3 % High 11.8 - 14.4 % [facility] Platelet mean volume (Bld) [Entitic vol] 11.2 fL 8.1 - 13.5 fL [facility] Platelets (Bld) [#/Vol] 743 10*3/uL High [facility] RBC (Bld) [#/Vol] 3.54 10*6/uL Low 3.95 - 5.11 m/uL [facility] WBC (Bld) [#/Vol] 9.6 10*3/uL [facility] Comp Metabolic Pr/rfx MGon 0 - Potassium [Moles/Vol] 3.4 mmol/L Low 3.7-5.3 [facility] Comment on above: Performed By: #### C DP #### [facility] [address] [place] [address] Insurance Loss Control Surveyor: Peter Baer MD (cont.) [facility] Comment on above: Result Comment: Aver age GFR for 60-69 years old: 85 mL/min/1.73sq m Chronic Kidney Disease: <60 mL/min/1.73sq m Kidney failure: <15 mL/min/1.73sq m eGFR calculated using average adult body mass. Additional eGFR calculator available at: http://www.[employer].Mobimedia/multiple_crcl_2011.htm Performed By: #### C DP #### [facility] [address] [place] [address] Insurance Loss Control Surveyor: Peter Baer MD Albumin [Mass/Vol] 3.4 g/dL Low 3.5-5.2 [facility] Comment on above: Performed By: #### C DP #### [facility] [place] [address] Insurance Loss Control Surveyor: Peter Baer MD Albumin/Glob Ratio 1.3 Normal 1.0-2.5 [facility] Comment on above: Performed By: #### C DP #### [facility] [address] [place] [address] Insurance Loss Control Surveyor: Peter Baer MD Alkaline Phos 78 U/L Normal 35-104 [facility] Comment on above: Performed By: #### C DP #### [address] [address] Insurance Loss Control Surveyor: Peter Baer MD ALT [Catalytic activity/Vol] 10 U/L Normal 5-33 [facility] Comment on above: Performed By: #### C DP #### [address] [address] Insurance Loss Control Surveyor: Peter Baer MD Anion gap [Moles/Vol] 11 mmol/L Normal 9-17 [facility] Comment on above: Performed By: #### C DP #### [address] [address] Insurance Loss Control Surveyor: Peter Baer MD AST [Catalytic activity/Vol] 13 U/L Normal <32 [facility] Comment on above: Performed By: #### C DP #### [address] [address] Insurance Loss Control Surveyor: Peter Baer MD Bilirubin [Mass/Vol] 0.20 mg/dL Low 0.3-1.2 [facility] Comment on above: Performed By: #### C DP #### [address] [address] Insurance Loss Control Surveyor: Peter Baer MD Calcium [Mass/Vol] 8.8 mg/dL Normal 8.6-10.4 [facility] Comment on above: Performed By: #### C DP #### [address] [address] Insurance Loss Control Surveyor: Peter Baer MD Chloride [Moles/Vol] 107 mmol/L Normal 98-107 [facility] Comment on above: Performed By: #### C DP #### [address] [address] Insurance Loss Control Surveyor: Peter Baer MD CO2 [Moles/Vol] 25 mmol/L Normal 20-31 [facility] Comment on above: Performed By: #### C DP #### [address] [address] Insurance Loss Control Surveyor: Peter Baer MD Creatinine [Mass/Vol] 0.39 mg/dL Low 0.50-0.90 [facility] Comment on above: Performed By: #### C DP #### [address] [address] Insurance Loss Control Surveyor: Peter Baer MD GFR, Amer >60 Normal >60 [facility] Comment on above: Performed By: #### C DP #### [address] [address] Insurance Loss Control Surveyor: Peter Baer MD GFR,non Amer >60 Normal >60 [facility] Comment on above: Performed By: #### C DP #### [address] [address] Insurance Loss Control Surveyor: Peter Baer MD Glucose [Mass/Vol] 80 mg/dL Normal 70-99 [facility] Comment on above: Performed By: #### C DP #### [address] [address] Insurance Loss Control Surveyor: Peter Baer MD Protein [Mass/Vol] 6.1 g/dL Low 6.4-8.3 [facility] Comment on above: Performed By: #### C DP #### [address] [address] Insurance Loss Control Surveyor: Peter Baer MD Sodium [Moles/Vol] 143 mmol/L Normal 135-144 [facility] [facility] Comment on above: Performed By: #### C DP #### [address] [address] Insurance Loss Control Surveyor: Peter Baer MD Urea nitrogen [Mass/Vol] 6 mg/dL Low 8-23 [facility] Comment on above: Performed By: #### C DP #### [facility] [address] [phone] Insurance Loss Control Surveyor: Peter Baer MD Comprehensive Metabolic Pane l w/ Reflex to MGon 06-13-2022 Albumin [Mass/Vol] 3.4 g/dL Low 3.5 - 5.2 g/dL [facility] Albumin/Globulin [Mass ratio] 1.3 {ratio} 1 - 2.5 [facility] ALP (Bld) [Catalytic activity/Vol] 78 U/L 35 - 104 U/L [facility] ALT [Catalytic activity/Vol] 10 U/L 5 - 33 U/L [facility] Anion gap [Moles/Vol] 11 mmol/L 9 - 17 mmol/L [facility] AST [Catalytic activity/Vol] 13 U/L NINF - 32 U/L [facility] Bilirubin [Mass/Vol] 0.20 mg/dL Low 0.3 - 1 .2 mg/dL [facility] Calcium [Mass/Vol] 8.8 mg/dL 8.6 - 10. 4 mg/dL [facility] Chloride [Moles/Vol] 107 mmol/L 98 - 10 7 mmol/L [facility] CO2 [Moles/Vol] 25 mmol/L 20 - 31 mmol/L [facility] Creatinine [Mass/Vol] 0.39 mg/dL Low 0.5 - 0.9 mg/dL [facility] Free PSA/Total PSA [Mass fraction] 6.1 g/dL Low 6.4 - 8.3 g/dL [facility] GFR >60 60 - PI NF mL/min [facility] GFR Non- >60 60 - PINF mL/min [facility] GFR/1.73 sq M.predicted MDRD (S/P/Bld) [Vol rate/Area] [facility] Comment on above: Average GFR for 60-6 9 years old: 85 mL/min/1.73sq m Chronic Kidney Disease: <60 mL/min/1.73sq m Kidney failure: <15 mL/min/1.73sq m eGFR calculated using average adult body mass. Additional eGFR calculator available at: http://www.[employer]/multiple_crcl_2012.htm Glucose [Mass/Vol] 80 mg/dL 70 - 99 mg/dL [facility] [employer] Interpretation and review of laboratory results Abnormal [facility] [employer] Potassium [Moles/Vol] 3.4 mmol/L Low 3.7 - 5.3 mmol/L [facility] [employer] Sodium [Moles/Vol] 143 mmol/L 135 - 144 mmol/L [facility] [employer] Urea nitrogen (BldV) [Mass/Vol] 6 mg/dL Low 8 - 23 mg/dL [employer] [facility] EKG 12 leadon 06-13-2022 Atrial Rate 59 BPM [employer] Work Phone: P [place] 68 degrees [employer] Work Phone: P-R Interval 146 ms [employer] Work Phone: Q-T Interval 486 ms [employer] Work Phone: QRS Duration 74 ms [employer] Work Phone: QTc Calculation (Bazett) 481 ms [employer] Work Phone: R [place] -34 degrees [employer] Work Phone: T [place] 66 degrees [employer] Work Phone: Ventricular Rate 59 BPM [facility] [employer] Work Phone: Sinus bradycardia Left axis deviation Nonspecific T wave abnormality Abnormal ECG When compared with ECG of 25-APR-2022 20:33, No significant change was found [facility] Joseph Moreno MD - 06/13/2022 Sinus bradycardia Left axis deviation Nonspecific T wave abnormality Abnormal ECG When compared with ECG of 25-APR-2022 20:33, No significant change was found [facility] Work Phone: [facility] [employer] Phone: Lipid Profileon 06-13-2022 Cholesterol [Mass/Vol] 114 mg/dL Normal <200 [facility] Comment on above: Result Comment: Cholesterol Guidelines: <200 Desirable 200-240 Borderline >240 Undesirable Performed By: #### C DP #### [address] [address] Insurance Loss Control Surveyor: Peter Baer MD Cholesterol in HDL [Mass/Vol] 31 mg/dL Low >40 [facility] Comment on above: Result Comment: HDL Guidelines: <40 Undesirable 40-59 Borderline >59 Desirable Performed By: #### C DP #### [address] [address] Insurance Loss Control Surveyor: Peter Baer MD Cholesterol in LDL [Mass/Vol] 49 mg/dL Normal 0-130 [facility] Comment on above: Result Comment: LDL Guidelines: <100 Desirable 100-129 Near to/above Desirable 130-159 Borderline >159 Undesirable Direct (measured) LDL and calculated LDL are not interchangeable tests. Performed By: #### C DP #### [address] [address] Insurance Loss Control Surveyor: Peter Baer MD Cholesterol.total/Cholest sidney in HDL [Mass ratio] 3.7 {ratio} Normal <5 [facility] Comment on above: Performed By: #### C DP #### [address] [address] Insurance Loss Control Surveyor: Peter Baer MD Triglyceride [Mass/Vol] 169 mg/dL High <150 [facility] Comment on above: Result Comment: Triglyceride Guidelines: <150 Desirable 150-199 Borderline 200-499 High >499 Very high Based on AHA Guidelines for fasting triglyceride, July 2012. Performed By: #### C DP #### [address], [place] [phone] Insurance Loss Control Surveyor: Peter Baer MD Lipid panel - fastingon 05-17 Cholesterol [Mass/Vol] 114 mg/dL NINF - 200 mg/dL [facility] [employer] [facility] Comment on above: Cholesterol Guidelines: <200 Desirable 200-240 Borderline >240 Undesirable Cholesterol in HDL [Mass/Vol] 31 mg/dL Low 40 - PINF mg/dL [facility] [employer] [facility] Comment on above: HDL Guidelines: <40 Undesirable 40-59 Borderline >59 Desirable Cholesterol in LDL [Mass/Vol] 49 mg/dL 0 - 130 mg/dL [facility] Comment on above: LDL Guidelines: <100 Desirable 100-129 Near to/above Desirable 130-159 Borderline >159 Undesirable Direct (measured) LDL and calculated LDL are not interchangeable tests. Cholesterol.total/Cholest sidney in HDL [Mass ratio] 3.7 {ratio} NINF - 5 [facility] [employer] [facility] Triglyceride [Mass/Vol] 169 mg/dL High NINF - 150 mg/dL [facility] Comment on above: Triglyceride Guidelines: <150 Desirable 150-199 Borderline 200-499 High >499 Very high Based on AHA Guidelines for fasting triglyceride, July 2012. Magnesiumon 06-13-2022 Magnesium [Mass/Vol] 2.0 mg/dL Normal 1.6-2.6 [facility] Comment on above: Performed By: #### C DP #### [facility] [address] [place] [address] [phone] Insurance Loss Control Surveyor: Peter Baer MD Magnesium [Mass/Vol] 2.0 mg/dL 1.6 - 2 .6 mg/dL [facility] [employer] [facility] No Panel Informationon 06-13 Interpretation and review of laboratory results Abnormal [facility] [employer] [facility] POC Glucose Fingerstickon Glucose [Mass/Vol] 99 mg/dL 65 - 105 mg/dL [facility] Glucose [Mass/Vol] 68 mg/dL 65 - 105 mg/dL [facility] Glucose [Mass/Vol] 89 mg/dL 65 - 105 mg/dL [facility] Glucose [Mass/Vol] 73 mg/dL 65 - 105 mg/dL [facility] Glucose [Mass/Vol] 77 mg/dL 65 - 105 mg/dL [facility] Troponinon 06-13-2022 Troponin, High Sens 11 ng/L Normal 0-14 [facility] Comment on above: Result Comment: High Sensitivity Troponin values cannot be compared with other Troponin methodologies. Patients with high levels of Biotin oral intake (i.e >5mg/day) may have falsely decreased Troponin levels. Samples collected within 8 hours of biotin intake may require additional information for diagnosis. Performed By: #### T ROPI #### [facility] [address] [place] [address] Insurance Loss Control Surveyor: ePter Baer MD Troponin, High Sensitivity 11 ng/L 0 - 14 ng/L [facility] Comment on above: High Sensitivity Troponin values cannot be compared with other Troponin methodologies. Patients with high levels of Biotin oral intake (i.e >5mg/day) may have falsely decreased Troponin levels. Samples collected within 8 hours of biotin intake may require additional information for diagnosis. [facility] Troponin, High Sens 11 ng/L Normal 0-14 [facility] Comment on above: Result Comment: High Sensitivity Troponin values cannot be compared with other Troponin methodologies. Patients with high levels of Biotin oral intake (i.e >5mg/day) may have falsely decreased Troponin levels. Samples collected within 8 hours of biotin intake may require additional information for diagnosis. Performed By: #### T ROPI #### [facility] [address] [place] [address] Insurance Loss Control Surveyor: Peter Baer MD Troponin, High Sensitivity 11 ng/L 0 - 14 ng/L [facility] Comment on above: High Sensitivity Troponin values cannot be compared with other Troponin methodologies. Patients with high levels of Biotin oral intake (i.e >5mg/day) may have falsely decreased Troponin levels. Samples collected within 8 hours of biotin intake may require additional information for diagnosis. [facility] Brain Natri. Peptideon 06-11 Natriuretic peptide B (Bld) [Mass/Vol] 443 pg/mL High <300 [facility] Comment on above: Result Comment: An age-independent cutoff point of 300 pg/ml has a 98% negative predictive value excluding acute heart failure. Performed By: #### C DP #### [facility] [address] [place], [place] [phone] Insurance Loss Control Surveyor: Peter Baer MD Brain Natriuretic Peptideon 06-11-2022 Interpretation and review of laboratory results Abnormal [facility] [email or web address] [facility] Natriuretic peptide B (Bld) [Mass/Vol] 443 pg/mL High NINF - 300 pg/mL [facility] Comment on above: An age-independent cutoff point of 300 pg/ml has a 98% negative predictive value excluding acute heart failure. No Panel Informationon 06-[address] [facility] POC Glucose Fingerstickon Glucose [Mass/Vol] 106 mg/dL High 65 - 105 mg/dL [facility] Interpretation and review of laboratory results Abnormal [facility]ITAL[facility] Glucose [Mass/Vol] 89 mg/dL 65 - 105 mg/dL [facility] Troponinon 06-11-2022 Troponin, High Sens 11 ng/L Normal 0-14 [facility] Comment on above: Result Comment: High Sensitivity Troponin values cannot be compared with other Troponin methodologies. Patients with high levels of Biotin oral intake (i.e >5mg/day) may have falsely decreased Troponin levels. Samples collected within 8 hours of biotin intake may require additional information for diagnosis. Performed By: #### C DP #### [facility] [address] [place], [place] [phone] Insurance Loss Control Surveyor: Peter Baer MD Troponin, High Sensitivity 11 ng/L 0 - 14 ng/L [facility] Comment on above: High Sensitivity Troponin values cannot be compared with other Troponin methodologies. Patients with high levels of Biotin oral intake (i.e >5mg/day) may have falsely decreased Troponin levels. Samples collected within 8 hours of biotin intake may require additional information for diagnosis. Basic Metabolic Panelon 05-17 Anion gap [Moles/Vol] 18 mmol/L High 9 - 17 mmol/L [facility] Calcium [Mass/Vol] 8.7 mg/dL 8.6 - 10. 4 mg/dL [facility] Chloride [Moles/Vol] 101 mmol/L 98 - 10 7 mmol/L [facility] CO2 [Moles/Vol] 23 mmol/L 20 - 31 mmol/L [facility] Creatinine [Mass/Vol] 0.85 mg/dL 0.5 - 0.9 mg/dL [facility] GFR >60 60 - PI NF mL/min [facility] GFR Non- >60 60 - PINF mL/min [facility] GFR/1.73 sq M.predicted MDRD (S/P/Bld) [Vol rate/Area] [facility] Comment on above: Average GFR for 60-6 9 years old: 85 mL/min/1.73sq m Chronic Kidney Disease: <60 mL/min/1.73sq m Kidney failure: <15 mL/min/1.73sq m eGFR calculated using average adult body mass. Additional eGFR calculator available at: http://www.[employer]/multiple_crcl_2011.htm Glucose [Mass/Vol] 47 mg/dL Low 70 - 99 mg/dL [facility] Interpretation and review of laboratory results Abnormal [facility] Potassium [Moles/Vol] 3.6 mmol/L Low 3.7 - 5.3 mmol/L [facility] Sodium [Moles/Vol] 142 mmol/L 135 - 144 mmol/L [facility] Urea nitrogen (BldV) [Mass/Vol] 12 mg/dL 8 - 23 mg/dL [facility] Basic Metabolic Profon 06-10 Glucose [Mass/Vol] 47 mg/dL Low 70-99 [facility] Comment on above: Performed By: #### C OVRB #### [facility] [place] [address] Insurance Loss Control Surveyor: Peter Baer MD (cont.) Normal [facility] Comment on above: Result Comment: Aver age GFR for 60-69 years old: 85 mL/min/1.73sq m Chronic Kidney Disease: <60 mL/min/1.73sq m Kidney failure: <15 mL/min/1.73sq m eGFR calculated using average adult body mass. Additional eGFR calculator available at: http://www.[employer]/multiple_crcl_2012.htm Performed By: #### C OVRB #### [address] [address] Insurance Loss Control Surveyor: Peter Baer MD Anion gap [Moles/Vol] 18 mmol/L High 9-17 [facility] Comment on above: Performed By: #### C OVRB #### [address] [address] Insurance Loss Control Surveyor: Peter Baer MD Calcium [Mass/Vol] 8.7 mg/dL Normal 8.6-10.4 [facility] Comment on above: Performed By: #### C OVRB #### [address] [address] Insurance Loss Control Surveyor: Peter Baer MD Chloride [Moles/Vol] 101 mmol/L Normal 98-107 [facility] Comment on above: Performed By: #### C OVRB #### [address] [address] Insurance Loss Control Surveyor: Peter Baer MD CO2 [Moles/Vol] 23 mmol/L Normal 20-31 [facility] Comment on above: Performed By: #### C OVRB #### [address] [address] Insurance Loss Control Surveyor: Peter Baer MD Creatinine [Mass/Vol] 0.85 mg/dL Normal 0.50-0.90 [facility] Comment on above: Performed By: #### C OVRB #### [address] [address] Insurance Loss Control Surveyor: Peter Baer MD GFR, Amer >60 Normal >60 [facility] Comment on above: Performed By: #### C OVRB #### [address] [address] Insurance Loss Control Surveyor: Peter Baer MD GFR,non Amer >60 Normal >60 [facility] Comment on above: Performed By: #### C OVRB #### [address] [address] Insurance Loss Control Surveyor: Peter Baer MD Potassium [Moles/Vol] 3.6 mmol/L Low 3.7-5.3 [facility] Comment on above: Performed By: #### C OVRB #### [address] [address] Insurance Loss Control Surveyor: Peter Baer MD Sodium [Moles/Vol] 142 mmol/L Normal 135-144 [facility] Comment on above: Performed By: #### C OVRB #### [address] [address] Insurance Loss Control Surveyor: Peter Baer MD Urea nitrogen [Mass/Vol] 12 mg/dL Normal 8-23 [facility] Comment on above: Performed By: #### C OVRB #### [address] [address] Insurance Loss Control Surveyor: Peter Baer MD CBC with Auto Differentialon 06-10-2022 Absolute Eos # 0.26 [facility] Immature Granulocyte 0.07 [facility] Absolute Lymph # 4.04 High [facility] Absolute [place] # 0.79 [facility] Basophils (Bld) [#/Vol] 0.05 10*3/uL [facility] Basophils/100 WBC (Bld) 0 % 0 - 2 % [facility] Eosinophils/100 WBC (Bld) 2 % 1 - 4 % [facility] Hematocrit (Bld) [Volume fraction] 38.2 % 36.3 - 47.1 % [facility] Hemoglobin (Bld) [Mass/Vol] 11.8 g/dL Low 11.9 - 15.1 g/dL [facility] Immature granulocytes/100 WBC (Bld) 1 % High 0 [facility] Interpretation and review of laboratory results Abnormal [facility] Lymphocytes/100 WBC (Bld) 27 % 24 - 43 % [facility] MCH (RBC) [Entitic mass] 28.6 pg 25. 2 - 33.5 pg [facility] MCHC (RBC) [Mass/Vol] 30.9 g/dL 28.4 - 34.8 g/dL [facility] MCV (RBC) [Entitic vol] 92.5 fL 82.6 - 102.9 fL [facility] Monocytes/100 WBC (Bld) 5 % 3 - 12 % B [facility] NRBC Automated 0.0 0.0 per 100 WBC [facility] Platelet distribution width (Bld) [Ratio] 16.9 % High 11.8 - 14.4 % [facility] Platelet mean volume (Bld) [Entitic vol] 10.4 fL 8.1 - 13.5 fL [facility] Platelets (Bld) [#/Vol] 322 10*3/uL [facility] RBC (Bld) [#/Vol] 4.13 10*6/uL 3.95 - 5.11 m/uL [facility] RBC (Bld) [#/Vol] ANISOCYTOSIS PRESENT [facility] Segmented neutrophils/100 WBC (Bld) 65 % 36 - 65 % [facility] Segs Absolute 9.79 High [facility] WBC (Bld) [#/Vol] 15.0 10*3/uL High [facility] CBC with Diffon 06-10-2022 Abs. Basophil 0.05 k/uL Normal 0.00-0.20 [facility] Comment on above: Performed By: #### C OVRB #### [address] [address] Insurance Loss Control Surveyor: Peter Baer MD Abs.Imm.Granulocyte 0.07 k/uL Normal 0.00-0.30 [facility] Comment on above: Performed By: #### C OVRB #### [address] [address] Insurance Loss Control Surveyor: Peter Baer MD Abs.Neutrophil (Seg) 9.79 k/uL High 1.50-8.10 [facility] Comment on above: Performed By: #### C OVRB #### [address] [address] Insurance Loss Control Surveyor: Peter Baer MD Basophils/100 WBC (Bld) 0 % Normal 0-2 [facility] Comment on above: Performed By: #### C OVRB #### [address] [address] Insurance Loss Control Surveyor: Peter Baer MD Eosinophils (Bld) [#/Vol] 0.26 10*3/uL Normal 0.00-0.4 4 [facility] Comment on above: Performed By: #### C OVRB #### [address] [address] Insurance Loss Control Surveyor: Peter Baer MD Eosinophils/100 WBC (Bld) 2 % Normal 1-4 [facility] Comment on above: Performed By: #### C OVRB #### [address] [address] Insurance Loss Control Surveyor: Peter Baer MD Erythrocyte distribution width (RBC) [Ratio] 16.9 % High 11.8-14.4 [facility] Comment on above: Performed By: #### C OVRB #### [address] [address] Insurance Loss Control Surveyor: Peter Baer MD Hematocrit (Bld) [Volume fraction] 38.2 % Normal 36.3-47.1 [facility] Comment on above: Performed By: #### C OVRB #### [address] [address] Insurance Loss Control Surveyor: Peter Baer MD Hemoglobin (Bld) [Mass/Vol] 11.8 g/dL Low 11.9-15.1 [facility] Comment on above: Performed By: #### C OVRB #### [address] [address] Insurance Loss Control Surveyor: Peter Baer MD Immature granulocytes/100 WBC (Bld) 1 % High 0 [facility] Comment on above: Performed By: #### C OVRB #### [address] [address] Insurance Loss Control Surveyor: Peter Baer MD Lymphocytes (Bld) [#/Vol] 4.04 10*3/uL High 1.10-3.7 0 [facility] Comment on above: Performed By: #### C OVRB #### [address] [address] Insurance Loss Control Surveyor: Peter Baer MD Lymphocytes/100 WBC (Bld) 27 % Normal 24-43 [facility] Comment on above: Performed By: #### C OVRB #### [address] [address] Insurance Loss Control Surveyor: Peter Baer MD MCH (RBC) [Entitic mass] 28.6 pg Normal 25.2-33.5 [facility] Comment on above: Performed By: #### C OVRB #### [address] [address] Insurance Loss Control Surveyor: Peter Baer MD MCHC (RBC) [Mass/Vol] 30.9 g/dL Normal 28.4-34.8 [facility] Comment on above: Performed By: #### C OVRB #### [address] [address] Insurance Loss Control Surveyor: Peter Baer MD MCV (RBC) [Entitic vol] 92.5 fL Normal 82.6-102.9 [facility] Comment on above: Performed By: #### C OVRB #### [address] [address] Insurance Loss Control Surveyor: Peter Baer MD Monocytes (Bld) [#/Vol] 0.79 10*3/uL Normal 0.10-1.20 [facility] Comment on above: Performed By: #### C OVRB #### [address] [address] Insurance Loss Control Surveyor: Peter Baer MD Monocytes/100 WBC (Bld) 5 % Normal 3-12 [facility] Comment on above: Performed By: #### C OVRB #### [address] [address] Insurance Loss Control Surveyor: Peter Baer MD Neutrophil (Seg) 65 % Normal 36-65 [facility] Comment on above: Performed By: #### C OVRB #### [address] [address] Insurance Loss Control Surveyor: Peter Baer MD NRBC Automated 0.0 per 100 WBC Normal 0.0 [facility] Comment on above: Performed By: #### C OVRB #### [address] [address] Insurance Loss Control Surveyor: Peter Baer MD Platelet mean volume (Bld) [Entitic vol] 10.4 fL Normal 8.1-13.5 [facility] Comment on above: Performed By: #### C OVRB #### [address] [address] Insurance Loss Control Surveyor: Peter Baer MD Platelets (Bld) [#/Vol] 322 10*3/uL Normal 138-453 [facility] Comment on above: Performed By: #### C OVRB #### [address] [address] Insurance Loss Control Surveyor: Peter Baer MD RBC (Bld) [#/Vol] 4.13 10*6/uL Normal 3.95-5.11 [facility] Comment on above: Performed By: #### C OVRB #### [address] [address] Insurance Loss Control Surveyor: Peter Baer MD RBC morphology finding Nom (Bld) ANISOCYTOSIS PRESENT Normal [facility] Comment on above: Performed By: #### C OVRB #### [address] [address] Insurance Loss Control Surveyor: Peter Baer MD WBC (Bld) [#/Vol] 15.0 10*3/uL High 3.5-11.3 [facility] Comment on above: Performed By: #### C OVRB #### [address] [address] Insurance Loss Control Surveyor: Peter Baer MD COVID-19, Rapidon 06-10-2022 SARS-CoV-2 (COVID-19) RNA MARQUITA+probe Ql (Unsp spec) Not detected Not Detected [facility] Comment on above: Rapid NAAT: The specimen [...] management decisions. Fact sheet for Healthcare Providers: https://www.[employer].gov/media/546288/download Fact sheet for Patients: https://www.fda.gov/media/653172/download Methodology: Isothermal Nucleic Acid Amplification Specimen Description .NASOPHARYNGEAL SWAB [facility] Magnesiumon 06-10-2022 Magnesium [Mass/Vol] 2.0 mg/dL Normal 1.6-2.6 [facility] Comment on above: Performed By: #### C OVRB #### [facility] [address] [place] [address] Insurance Loss Control Surveyor: Peter Baer MD Magnesium [Mass/Vol] 2.0 mg/dL 1.6 - 2 .6 mg/dL [facility] [id number] 06-10-2022 SARS-CoV-2 (COVID-19) RNA MARQUITA+probe Ql (Unsp spec) Not detected Normal [facility] Comment on above: Result Comment: Rapid NAAT: [...] management decisions. Fact sheet for Healthcare Providers: https://www.fda.gov/media/737080/download Fact sheet for Patients: https://www.fda.gov/media/259175/download Methodology: Isothermal Nucleic Acid Amplification Performed By: #### C OVRB #### [facility] [facility] [address] [place], [place] [phone] Insurance Loss Control Surveyor: Peter Baer MD Troponinon 06-10-2022 Troponin, High Sens 10 ng/L Normal 0-14 [facility] Comment on above: Result Comment: High Sensitivity Troponin values cannot be compared with other Troponin methodologies. Patients with high levels of Biotin oral intake (i.e >5mg/day) may have falsely decreased Troponin levels. Samples collected within 8 hours of biotin intake may require additional information for diagnosis. Performed By: #### C OVRB #### [facility] [address] [place] [address] [id number] Insurance Loss Control Surveyor: Peter Baer MD Troponin, High Sens 9 ng/L Normal 0-14 [facility] Comment on above: Result Comment: High Sensitivity Troponin values cannot be compared with other Troponin methodologies. Patients with high levels of Biotin oral intake (i.e >5mg/day) may have falsely decreased Troponin levels. Samples collected within 8 hours of biotin intake may require additional information for diagnosis. Performed By: #### C OVRB #### [facility] [address] [place], [place] [phone] Insurance Loss Control Surveyor: Peter Baer MD Troponin, High Sensitivity 10 ng/L 0 - 14 ng/L [facility] Comment on above: High Sensitivity Troponin values cannot be compared with other Troponin methodologies. Patients with high levels of Biotin oral intake (i.e >5mg/day) may have falsely decreased Troponin levels. Samples collected within 8 hours of biotin intake may require additional information for diagnosis. [facility] Troponin, High Sensitivity 9 ng/L 0 - 14 ng/L [facility] Comment on above: High Sensitivity Troponin values cannot be compared with other Troponin methodologies. Patients with high levels of Biotin oral intake (i.e >5mg/day) may have falsely decreased Troponin levels. Samples collected within 8 hours of biotin intake may require additional information for diagnosis. [facility] XR CHEST PORTABLEon 06-10-20 XR CHEST PORTABLE [...] Gene Olivares MD 06/10/22 Final result Normal [facility] Faint bibasilar opacities, atelectasis versus pneumonia. [facility] EXAMINATION: ONE XRAY VIEW OF THE CHEST 06/10/2022 4:01 pm COMPARISON: None. HISTORY: ORDERING SYSTEM PROVIDED HISTORY: chest pain TECHNOLOGIST PROVIDED HISTORY: chest pain FINDINGS: Cardiomediastinal silhouette is normal in size. There is no pleural effusion or pneumothorax. There are faint bibasilar opacities. No acute osseous abnormality. [facility] Gene Olivares MD - 06/10/2022 EXAMINATION: ONE XRAY VIEW OF THE CHEST 06/10/2022 4:01 pm COMPARISON: None. HISTORY: ORDERING SYSTEM PROVIDED HISTORY: chest pain TECHNOLOGIST PROVIDED HISTORY: chest pain FINDINGS: Cardiomediastinal silhouette is normal in size. There is no pleural effusion or pneumothorax. There are faint bibasilar opacities. No acute osseous abnormality. IMPRESSION: Faint bibasilar opacities, atelectasis versus pneumonia. [facility] [employer] Phone: Radiology Study observation (narrative) [facility] Phone: XR CHEST PORTABLEOrdered By: Gene Olivares on 06-10-[address] [facility] Work Phone: COVID-19, Rapidon 04-26-2022 SARS-CoV-2 (COVID-19) RNA MARQUITA+probe Ql (Unsp spec) Not detected Not Detected [facility] [employer] Comment on above: Rapid NAAT: The specimen [...] management decisions. Fact sheet for Healthcare Providers: https://www.fda.gov/media/944680/download Fact sheet for Patients: https://www.fda.gov/media/077297/download Methodology: Isothermal Nucleic Acid Amplification Specimen Description .NASOPHARYNGEAL SWAB [facility] [id number] 04-26-2022 SARS-CoV-2 (COVID-19) RNA MARQUITA+probe Ql (Unsp spec) Not detected Normal [facility] Comment on above: Result Comment: Rapid NAAT: [...] management decisions. Fact sheet for Healthcare Providers: https://www.fda.gov/media/544994/download Fact sheet for Patients: https://www.fda.gov/media/400334/download Methodology: Isothermal Nucleic Acid Amplification Performed By: #### Jolene DP #### [facility] [address] [place] [phone] Insurance Loss Control Surveyor: Peter Baer MD Performed By: #### Jolene OVRB #### [facility] [address] [place] [address] Insurance Loss Control Surveyor: Peter Baer MD Troponinon 04-26-2022 Troponin, High Sens 16 ng/L High 0-14 [facility] Comment on above: Result Comment: High Sensitivity Troponin values cannot be compared with other Troponin methodologies. Patients with high levels of Biotin oral intake (i.e >5mg/day) may have falsely decreased Troponin levels. Samples collected within 8 hours of biotin intake may require additional information for diagnosis. Performed By: #### T TYREL TREVIÑO, BMP #### [facility] [address] [place] [address] Insurance Loss Control Surveyor: Peter Baer MD Performed By: #### C NEAL GRIFFIN BMP #### [facility] [address] [place] [address] Insurance Loss Control Surveyor: Peter Baer MD Troponin, High Sens 12 ng/L Normal 0-14 [facility] Comment on above: Result Comment: High Sensitivity Troponin values cannot be compared with other Troponin methodologies. Patients with high levels of Biotin oral intake (i.e >5mg/day) may have falsely decreased Troponin levels. Samples collected within 8 hours of biotin intake may require additional information for diagnosis. Performed By: #### C DP #### [facility] [address] [place] [address] Insurance Loss Control Surveyor: Peter Baer MD Performed By: #### C OVRB #### [facility] [address] [place] [phone] Insurance Loss Control Surveyor: Peter Baer MD Troponin, High Sensitivity 12 ng/L 0 - 14 ng/L [facility] [employer] Comment on above: High Sensitivity Troponin values cannot be compared with other Troponin methodologies. Patients with high levels of Biotin oral intake (i.e >5mg/day) may have falsely decreased Troponin levels. Samples collected within 8 hours of biotin intake may require additional information for diagnosis. [facility] Basic Metabolic Panelon - Anion gap [Moles/Vol] 11 mmol/L 9 - 17 mmol/L [facility] Calcium [Mass/Vol] 9.1 mg/dL 8.6 - 10. 4 mg/dL [facility] Chloride [Moles/Vol] 106 mmol/L 98 - 10 7 mmol/L [facility] CO2 [Moles/Vol] 23 mmol/L 20 - 31 mmol/L [facility] Creatinine [Mass/Vol] 0.72 mg/dL 0.50 - 0.90 mg/dL [facility] GFR >60 >60 mL/min [facility] GFR Non- >60 >60 mL/min [facility] GFR/1.73 sq M.predicted MDRD (S/P/Bld) [Vol rate/Area] [facility] Comment on above: Average GFR for 60-6 9 years old: 85 mL/min/1.73sq m Chronic Kidney Disease: <60 mL/min/1.73sq m Kidney failure: <15 mL/min/1.73sq m eGFR calculated using average adult body mass. Additional eGFR calculator available at: http://www.[employer]/multiple_crcl_2011.htm Glucose [Mass/Vol] 78 mg/dL 70 - 99 mg/dL [facility] Interpretation and review of laboratory results Abnormal [facility] Potassium [Moles/Vol] 3.6 mmol/L Low 3.7 - 5.3 mmol/L [facility] Sodium [Moles/Vol] 140 mmol/L 135 - 144 mmol/L [facility] Urea nitrogen (BldV) [Mass/Vol] 10 mg/dL 8 - 23 mg/dL [facility] Basic Metabolic Profon 04-25 (cont.) Normal [facility] Comment on above: Result Comment: Aver age GFR for 60-69 years old: 85 mL/min/1.73sq m Chronic Kidney Disease: <60 mL/min/1.73sq m Kidney failure: <15 mL/min/1.73sq m eGFR calculated using average adult body mass. Additional eGFR calculator available at: http://www.[employer]/multiple_crcl_2012.htm Performed By: #### T TYREL TREVIÑO, BMP #### [address] [id number] Insurance Loss Control Surveyor: Peter Baer MD Performed By: #### C NEAL GRIFFIN, BMP #### [address] [address] Insurance Loss Control Surveyor: Peter Baer MD Anion gap [Moles/Vol] 11 mmol/L Normal 9-17 [facility] Comment on above: Performed By: #### T TYREL TREVIÑO, BMP #### [address] [address] Insurance Loss Control Surveyor: Peter Baer MD Performed By: #### C NEAL GRIFFIN, BMP #### [address] [address] Insurance Loss Control Surveyor: Peter Baer MD Calcium [Mass/Vol] 9.1 mg/dL Normal 8.6-10.4 [facility] Comment on above: Performed By: #### T TYREL TREVIÑO, BMP #### [address] [address] Insurance Loss Control Surveyor: Peter Baer MD Performed By: #### C ANIKA GRIFFINI, BMP #### [facility] [address] [place] [phone] Insurance Loss Control Surveyor: Peter Baer MD Chloride [Moles/Vol] 106 mmol/L Normal 98-107 [facility] Comment on above: Performed By: #### T TYREL TREVIÑO, BMP #### [address] [address] Insurance Loss Control Surveyor: Peter Baer MD Performed By: #### C ANIKA GRIFFINI, BMP #### [facility] [address] [place] [address] Insurance Loss Control Surveyor: Peter Baer MD CO2 [Moles/Vol] 23 mmol/L Normal 20-31 [facility] Comment on above: Performed By: #### T ROPI, CDP, BMP #### [facility] [address] [place] [address] Insurance Loss Control Surveyor: Peter Baer MD Performed By: #### C DP, TROPI, BMP #### [facility] [address] [place] [address] Insurance Loss Control Surveyor: Peter Baer MD Creatinine [Mass/Vol] 0.72 mg/dL Normal 0.50-0.90 [facility] Comment on above: Performed By: #### T ROPI, CDP, BMP #### [facility] [address] [place] [address] Insurance Loss Control Surveyor: Peter Baer MD Performed By: #### C DP, TROPI, BMP #### [facility] [address] [place] [address] Insurance Loss Control Surveyor: Peter Baer MD GFR, Amer >60 Normal >60 [facility] Comment on above: Performed By: #### T ROPI, CDP, BMP #### [facility] [address] [place] [address] Insurance Loss Control Surveyor: Peter Baer MD Performed By: #### C DP, TROPI, BMP #### [facility] [address] [place] [address] Insurance Loss Control Surveyor: Peter Baer MD GFR,non Amer >60 Normal >60 [facility] Comment on above: Performed By: #### T ROPI, CDP, BMP #### [facility] [address] [place] [address] Insurance Loss Control Surveyor: Peter Baer MD Performed By: #### C DP, TROPI, BMP #### [facility] [address] [place] [address] Insurance Loss Control Surveyor: Peter Baer MD Glucose [Mass/Vol] 78 mg/dL Normal 70-99 [facility] Comment on above: Performed By: #### T ROPI, CDP, BMP #### [facility] [address] [place] [address] Insurance Loss Control Surveyor: Peter Baer MD Performed By: #### C DP, TROPI, BMP #### [facility] [address] [place] [address] Insurance Loss Control Surveyor: Peter Baer MD Potassium [Moles/Vol] 3.6 mmol/L Low 3.7-5.3 [facility] Comment on above: Performed By: #### T ROPI, CDP, BMP #### [facility] [address] [place] [address] Insurance Loss Control Surveyor: Peter Baer MD Performed By: #### C DP, TROPI, BMP #### [facility] [address] [place] [address] Insurance Loss Control Surveyor: Peter Baer MD Sodium [Moles/Vol] 140 mmol/L Normal 135-144 [facility] Comment on above: Performed By: #### T ROPRicha, CDP, BMP #### [facility] [address] [place] [address] Insurance Loss Control Surveyor: Peter Baer MD Performed By: #### C DP, TROPI, BMP #### [facility] [address] [place] [address] Insurance Loss Control Surveyor: Peter Baer MD Urea nitrogen [Mass/Vol] 10 mg/dL Normal 8-23 [facility] Comment on above: Performed By: #### T ROPI, CDP, BMP #### [facility] [address] [place] [address] Insurance Loss Control Surveyor: Peter Baer MD Performed By: #### C DP, TROPI, BMP #### [facility] [address] [place] [address] Insurance Loss Control Surveyor: Peter Baer MD CBC with Auto Differentialon 04-25-2022 Absolute Eos # 0.36 [facility] Absolute Immature Granulocyte 0.06 [facility] Absolute Lymph # 2.57 [facility] Absolute [place] # 0.81 [facility] Basophils (Bld) [#/Vol] 0.06 10*3/uL [facility] Basophils/100 WBC (Bld) 1 % 0 - 2 % B ON [facility] Eosinophils/100 WBC (Bld) 3 % 1 - 4 % [facility] Hematocrit (Bld) [Volume fraction] 40.7 % 36.3 - 47.1 % [facility] Hemoglobin (Bld) [Mass/Vol] 12.4 g/dL 11.9 - 15.1 g/dL [facility] Immature granulocytes/100 WBC (Bld) 1 % High 0 [facility] Interpretation and review of laboratory results Abnormal [facility] Lymphocytes/100 WBC (Bld) 19 % Low 24 - 43 % [facility] MCH (RBC) [Entitic mass] 28.7 pg 25. 2 - 33.5 pg [facility] MCHC (RBC) [Mass/Vol] 30.5 g/dL 28.4 - 34.8 g/dL [facility] MCV (RBC) [Entitic vol] 94.2 fL 82.6 - 102.9 fL [facility] Monocytes/100 WBC (Bld) 6 % 3 - 12 % B ON [facility] NRBC Automated 0.0 0.0 per 100 WBC [facility] Platelet distribution width (Bld) [Ratio] 18.5 % High 11.8 - 14.4 % [facility] Platelet mean volume (Bld) [Entitic vol] 10.2 fL 8.1 - 13.5 fL [facility] Platelets (Bld) [#/Vol] 277 10*3/uL [facility] RBC (Bld) [#/Vol] 4.32 10*6/uL 3.95 - 5.11 m/uL [facility] RBC (Bld) [#/Vol] ANISOCYTOSIS PRESENT [facility] Segmented neutrophils/100 WBC (Bld) 70 % High 36 - 65 % [facility] Segs Absolute 9.37 High [facility] WBC (Bld) [#/Vol] 13.2 10*3/uL High [facility] CBC with Diffon 04-25-2022 Abs. Basophil 0.06 k/uL Normal 0.00-0.20 [facility] Comment on above: Performed By: #### T TYREL TREVIÑO, BMP #### [facility] [address] [place] [address] Insurance Loss Control Surveyor: Peter Baer MD Performed By: #### C NEAL GRIFFIN BMP #### [facility] [address] [place] [address] Insurance Loss Control Surveyor: Peter Baer MD Abs.Imm.Granulocyte 0.06 k/uL Normal 0.00-0.30 [facility] Comment on above: Performed By: #### TYREL MONTEZ, BMP #### [facility] [address] [place] [address] Insurance Loss Control Surveyor: Peter Baer MD Performed By: #### C NEAL GRIFFIN BMP #### [facility] [address] [place] [address] Insurance Loss Control Surveyor: Peter Baer MD Abs.Neutrophil (Seg) 9.37 k/uL High 1.50-8.10 [facility] Comment on above: Performed By: #### T TYREL TREVIÑO, BMP #### [facility] [address] [place] [address] Insurance Loss Control Surveyor: Peter Baer MD Performed By: #### C NEAL GRIFFIN BMP #### [facility] [address] [place] [address] Insurance Loss Control Surveyor: Peter Baer MD Basophils/100 WBC (Bld) 1 % Normal 0-2 [facility] Comment on above: Performed By: #### TYREL MONTEZ, BMP #### [address] [id number] Insurance Loss Control Surveyor: Peter Baer MD Performed By: #### C NEAL GRIFFIN BMP #### [address] [address] Insurance Loss Control Surveyor: Peter Baer MD Eosinophils (Bld) [#/Vol] 0.36 10*3/uL Normal 0.00-0.4 4 [facility] Comment on above: Performed By: #### T TYREL TREVIÑO, BMP #### [facility] [address] [place] [address] Insurance Loss Control Surveyor: Peter Baer MD Performed By: #### C NEAL GRIFFIN, BMP #### [facility] [address] [place] [address] Insurance Loss Control Surveyor: Peter Baer MD Eosinophils/100 WBC (Bld) 3 % Normal 1-4 [facility] Comment on above: Performed By: #### T TYREL TREVIÑO, BMP #### [facility] [address] [place] [phone] Insurance Loss Control Surveyor: Peter Baer MD Performed By: #### C NEAL GRIFFIN, BMP #### [facility] [address] [place] [address] Insurance Loss Control Surveyor: Peter Baer MD Erythrocyte distribution width (RBC) [Ratio] 18.5 % High 11.8-14.4 [facility] Comment on above: Performed By: #### T TYREL TREVIÑO, BMP #### [facility] [address] [place] [address] Insurance Loss Control Surveyor: Peter Baer MD Performed By: #### C ANIKA GRIFFINI, BMP #### [facility] [address] [place] [address] Insurance Loss Control Surveyor: Peter Baer MD Hematocrit (Bld) [Volume fraction] 40.7 % Normal 36.3-47.1 [facility] Comment on above: Performed By: #### T HUDSON CDP, BMP #### [facility] [address] [place] [phone] Insurance Loss Control Surveyor: Peter Baer MD Performed By: #### C DP TROPI, BMP #### [address] [address] Insurance Loss Control Surveyor: Peter Baer MD Hemoglobin (Bld) [Mass/Vol] 12.4 g/dL Normal 11.9-15.1 [facility] Comment on above: Performed By: #### T HUDSON CDP, BMP #### [facility] [address] [place] [address] Insurance Loss Control Surveyor: Peter Baer MD Performed By: #### C DP TROPI, BMP #### [facility] [address] [place] [address] Insurance Loss Control Surveyor: Peter Baer MD Immature granulocytes/100 WBC (Bld) 1 % High 0 [facility] Comment on above: Performed By: #### T HUDSON CDP, BMP #### [facility] [address] [place] [address] Insurance Loss Control Surveyor: Peter Baer MD Performed By: #### C DP TROPI, BMP #### [facility] [address] [place] [address] Insurance Loss Control Surveyor: Peter Baer MD Lymphocytes (Bld) [#/Vol] 2.57 10*3/uL Normal 1.10-3.7 0 [facility] Comment on above: Performed By: #### T ROPRicha, CDP, BMP #### [facility] [address] [place] [address] Insurance Loss Control Surveyor: Peter Baer MD Performed By: #### C DP, TROPI, BMP #### [facility] [address] [place] [address] Insurance Loss Control Surveyor: Peter Baer MD Lymphocytes/100 WBC (Bld) 19 % Low 24-43 [facility] Comment on above: Performed By: #### T TYREL TREVIÑO, BMP #### [facility] [address] [place] [address] Insurance Loss Control Surveyor: Peter Baer MD Performed By: #### C NEAL GRIFFIN, BMP #### [facility] [address] [place] [address] Insurance Loss Control Surveyor: Peter Baer MD MCH (RBC) [Entitic mass] 28.7 pg Normal 25.2-33.5 [facility] Comment on above: Performed By: #### T TYREL TREVIÑO, BMP #### [address] [address] Insurance Loss Control Surveyor: Peter Baer MD Performed By: #### C NEAL GRIFFIN, BMP #### [facility] [address] [place] [address] Insurance Loss Control Surveyor: Peter Baer MD MCHC (RBC) [Mass/Vol] 30.5 g/dL Normal 28.4-34.8 [facility] Comment on above: Performed By: #### T TYREL TREVIÑO, BMP #### [address] [address] Insurance Loss Control Surveyor: Peter Baer MD Performed By: #### C ELIAS TROPI, BMP #### [facility] [address] [place] [phone] Insurance Loss Control Surveyor: Peter Baer MD MCV (RBC) [Entitic vol] 94.2 fL Normal 82.6-102.9 [facility] Comment on above: Performed By: #### T TYREL TREVIÑO, BMP #### [facility] [address] [place] [address] Insurance Loss Control Surveyor: Peter Baer MD Performed By: #### C DP, TROPI, BMP #### [address] [address] Insurance Loss Control Surveyor: Peter Baer MD Monocytes (Bld) [#/Vol] 0.81 10*3/uL Normal 0.10-1.20 [facility] Comment on above: Performed By: #### T ROPI, CDP, BMP #### [address] [address] Insurance Loss Control Surveyor: Peter Baer MD Performed By: #### C DP, TROPI, BMP #### [address] [address] Insurance Loss Control Surveyor: Peter Baer MD Monocytes/100 WBC (Bld) 6 % Normal 3-12 [facility] Comment on above: Performed By: #### T ROPI, CDP, BMP #### [address] [address] Insurance Loss Control Surveyor: Peter Baer MD Performed By: #### C DP, TROPI, BMP #### [address] [address] Insurance Loss Control Surveyor: Peter Baer MD Neutrophil (Seg) 70 % High 36-65 [facility] Comment on above: Performed By: #### T ROPI, CDP, BMP #### [address] [address] Insurance Loss Control Surveyor: Peter Baer MD Performed By: #### C DP, TROPI, BMP #### [address] [address] Insurance Loss Control Surveyor: Peter Baer MD NRBC Automated 0.0 per 100 WBC Normal 0.0 [facility] Comment on above: Performed By: #### T ROPI, CDP, BMP #### [facility] [address] [place] [address] Insurance Loss Control Surveyor: Peter Baer MD Performed By: #### C NEAL GRIFFIN, BMP #### [address] [address] Insurance Loss Control Surveyor: Peter Baer MD Platelet mean volume (Bld) [Entitic vol] 10.2 fL Normal 8.1-13.5 [facility] Comment on above: Performed By: #### T TYREL TREVIÑO, BMP #### [address] [address] Insurance Loss Control Surveyor: Peter Baer MD Performed By: #### C NEAL GRIFFIN, BMP #### [address] [address] Insurance Loss Control Surveyor: Peter Baer MD Platelets (Bld) [#/Vol] 277 10*3/uL Normal 138-453 [facility] Comment on above: Performed By: #### T TYREL TREVIÑO, BMP #### [address] [address] Insurance Loss Control Surveyor: Peter Baer MD Performed By: #### C NEAL GRIFFIN, BMP #### [facility] [address] [place] [address] Insurance Loss Control Surveyor: Peter Baer MD RBC (Bld) [#/Vol] 4.32 10*6/uL Normal 3.95-5.11 [facility] Comment on above: Performed By: #### T TYREL TREVIÑO, BMP #### [facility] [address] [place] [address] Insurance Loss Control Surveyor: Peter Baer MD Performed By: #### C NEAL GRIFFIN, BMP #### [facility] [address] [place] [address] Insurance Loss Control Surveyor: Peter Baer MD RBC morphology finding Nom (Bld) ANISOCYTOSIS PRESENT Normal [facility] Comment on above: Performed By: #### T ROPI, CDP, BMP #### [facility] [address] [place] [address] Insurance Loss Control Surveyor: Peter Baer MD Performed By: #### C NEAL GRIFFIN BMP #### [facility] [address] [place] [address] Insurance Loss Control Surveyor: Peter Baer MD WBC (Bld) [#/Vol] 13.2 10*3/uL High 3.5-11.3 [facility] Comment on above: Performed By: #### T TYREL TREVIÑO BMP #### [facility] [address] [place] [address] Insurance Loss Control Surveyor: Peter Baer MD Performed By: #### C NEAL GRIFFIN BMP #### [facility] [address] [place] [address] Insurance Loss Control Surveyor: Peter Baer MD Microscopic Urinalysison - [facility] Casts UA 10 TO 20 HYALINE Reference range defined for non-centrifuged specimen. [facility] Epithelial Cells UA 2 TO 5 [facility] RBC, UA 0 TO 2 [facility] Comment on above: Reference range defi azalia for non-centrifuged specimen. WBC, UA 2 TO 5 [facility] Urinalysison 04-25-2022 Bilirubin Urine Negative NEGATIVE [facility] Color, UA Yellow Yellow [facility] Glucose, Ur Negative NEGATIVE [facility] Interpretation and review of laboratory results Abnormal [facility] Ketones Ql (U) TRACE Abnormal NEGATIVE [facility] Leukocyte esterase Test strip Ql (U) Negative NEGATIVE [facility] Nitrite, Urine Negative NEGATIVE [facility] pH, UA 5.5 [facility] Protein, UA TRACE Abnormal NEGATIVE [facility] Specific [place], UA 1.024 [facility] Turbidity UA Clear Clear [facility] Urine Hgb Negative NEGATIVE [facility] Urobilinogen, Urine Normal Normal [facility] Urinalysis, Routineon 2021 Bilirubin, SemiQt,Ur Negative Normal NEG [facility] Comment on above: Performed By: #### C DP #### [address] [address] Insurance Loss Control Surveyor: Peter Baer MD Performed By: #### C OVRB #### [address] [address] Insurance Loss Control Surveyor: Peter Baer MD Blood, Urine Negative Normal NEG [facility] Comment on above: Performed By: #### C DP #### [address] [address] Insurance Loss Control Surveyor: Peter Baer MD Performed By: #### C OVRB #### [address] [address] Insurance Loss Control Surveyor: Peter Baer MD Clarity (U) Clear Normal CLEAR [facility] Comment on above: Performed By: #### C DP #### [address] [address] Insurance Loss Control Surveyor: Peter Baer MD Performed By: #### C OVRB #### [address] [address] Insurance Loss Control Surveyor: Peter Baer MD Color (U) Yellow Normal YEL [facility] Comment on above: Performed By: #### C DP #### [address] [address] Insurance Loss Control Surveyor: Peter Baer MD Performed By: #### C OVRB #### [address] [address] Insurance Loss Control Surveyor: Peter Baer MD Glucose Ql (U) Negative Normal NEG [facility] Comment on above: Performed By: #### C DP #### [address] [place] [address] Insurance Loss Control Surveyor: Petre Baer MD Performed By: #### C OVRB #### [address] [address] Insurance Loss Control Surveyor: Peter Baer MD Ketones Ql (U) TRACE Abnormal NEG [facility] Comment on above: Performed By: #### C DP #### [address] [address] Insurance Loss Control Surveyor: Peter Baer MD Performed By: #### C OVRB #### [address] [address] Insurance Loss Control Surveyor: Peter Baer MD Leukocyte esterase Test strip Ql (U) Negative Normal NEG [facility] Comment on above: Performed By: #### C DP #### [address] [address] Insurance Loss Control Surveyor: Peter Baer MD Performed By: #### C OVRB #### [address] [address] Insurance Loss Control Surveyor: Peter Baer MD Nitrite,Ur Negative Normal NEG [facility] Comment on above: Performed By: #### C DP #### [address] [address] Insurance Loss Control Surveyor: Peter Baer MD Performed By: #### C OVRB #### [address] [address] Insurance Loss Control Surveyor: Peter Baer MD PH,Ur 5.5 Normal 5.0-8.0 [facility] Comment on above: Performed By: #### C DP #### [address] [address] Insurance Loss Control Surveyor: Peter Baer MD Performed By: #### C OVRB #### [address] [address] Insurance Loss Control Surveyor: Peter Baer MD Protein Ql (U) TRACE Abnormal NEG [facility] Comment on above: Performed By: #### C DP #### [address] [address] Insurance Loss Control Surveyor: Peter Baer MD Performed By: #### C OVRB #### [address] [address] Insurance Loss Control Surveyor: Peter Baer MD Spec. [place],Ur 1.024 Normal 1.005-1.03 0 [facility] Comment on above: Performed By: #### C DP #### [address] [address] Insurance Loss Control Surveyor: Peter Baer MD Performed By: #### C OVRB #### [address] [address] Insurance Loss Control Surveyor: Peter Baer MD Urobilinogen,Ur Normal Normal NORM [facility] Comment on above: Performed By: #### C DP #### [address] [address] Insurance Loss Control Surveyor: Peter Baer MD Performed By: #### C OVRB #### [address] [address] Insurance Loss Control Surveyor: Peter Baer MD Urinalysis,Microon 2 ----- Normal [facility] Comment on above: Performed By: #### C DP #### [address] [address] Insurance Loss Control Surveyor: Peter Baer MD Performed By: #### C OVRB #### [address] [address] Insurance Loss Control Surveyor: Peter Baer MD Casts 10 TO 20 HYALINE Normal 0-8 [facility] Comment on above: Result Comment: Refe rence range defined for non-centrifuged specimen. Performed By: #### C DP #### [address] [address] Insurance Loss Control Surveyor: Peter Baer MD Performed By: #### C OVRB #### [address] [address] Insurance Loss Control Surveyor: Peter Baer MD Epithelial cells LM Ql (Urine sed) 2 TO 5 Normal 0-5 [facility] Comment on above: Performed By: #### C DP #### [address] [address] Insurance Loss Control Surveyor: Peter Baer MD Performed By: #### C OVRB #### [address] [address] Insurance Loss Control Surveyor: Peter Baer MD Urine RBC's 0 TO 2 Normal 0-4 [facility] Comment on above: Result Comment: Refe rence range defined for non-centrifuged specimen. Performed By: #### C DP #### [address] [address] Insurance Loss Control Surveyor: Peter Baer MD Performed By: #### C OVRB #### [address] [address] Insurance Loss Control Surveyor: Peter Baer MD Urine WBC's 2 TO 5 Normal 0-5 [facility] Comment on above: Performed By: #### C DP #### [address] [address] Insurance Loss Control Surveyor: Peter Baer MD Performed By: #### C OVRB #### [address] [address] Insurance Loss Control Surveyor: Peter Baer MD XR CHEST (2 VW)on [...] Jomar Blandon MD 04/25/22 Final result Normal [facility] No acute process. [facility] EXAMINATION: TWO XRAY VIEWS OF THE CHEST 04/25/2022 6:50 pm COMPARISON: 03/26/2018 HISTORY: ORDERING SYSTEM PROVIDED HISTORY: Pain TECHNOLOGIST PROVIDED HISTORY: Pain FINDINGS: The lungs are mildly hyperinflated without acute focal process. There is no effusion or pneumothorax. The cardiomediastinal silhouette is stable. The osseous structures are stable. [facility] Jomar Blandon MD - 04/25/2022 EXAMINATION: TWO XRAY VIEWS OF THE CHEST 04/25/2022 6:50 pm COMPARISON: 03/26/2018 HISTORY: ORDERING SYSTEM PROVIDED HISTORY: Pain TECHNOLOGIST PROVIDED HISTORY: Pain FINDINGS: The lungs are mildly hyperinflated without acute focal process. There is no effusion or pneumothorax. The cardiomediastinal silhouette is stable. The osseous structures are stable. IMPRESSION: No acute process. [employer] Phone: Radiology Study observation (narrative) [employer] Phone: XR CHEST (2 VW)Ordered By: Skye Blandon on 04-25-2022 [employer] Phone: [facility] 04-13-2021 [facility] HNO ID: [id number] Author: Rajendra Arias Service: Radiology Author Type: Dermatologist And Dermatopathologist Type: Allied Health Filed: 04/13/2021 12:53 PM [...] DATE: April 13, 2021 TIME: 12:52 PM [facility] MRI LIVER WO/W IVCONon 04-13 MRI LIVER WO/W IVCON * * *Final Report* * * DATE OF EXAM: Apr 13 2021 12:55PM [facility] 0727 - MRI LIVER WO/W IVCON / PROCEDURE REASON: multiple diagnoses * * * * Physician Interpretation * * * * MRI OF THE ABDOMEN WITHOUT AND WITH CONTRAST: 04/13/2021 CLINICAL HISTORY: Liver lesion evaluation, history of neuroendocrine tumor COMPARISON: CT 12/22/2020. TECHNIQUE: Siemens 1.5 T Avanto scanner. Using the torso phased array coil, axial STIR and T1 weighted in- and [id number] images were obtained. Then, using a 3-D [...] stenosis. Recommend clinical correlation with laboratory values. Votator Machine Operator: OFELIA Transcribe Date/Time: Apr 13 2021 1:15P Dictated by : LONNY GATICA MD This examination was interpreted and the report reviewed and electronically signed by: LONNY GATICA MD on Apr 13 2021 1:34PM EST [id number] CN Normal [facility] HEALTHon 11-26-2020 [facility] HNO ID: [id number] Author: OTIS Glover (Ct) Service: Radiology Author Type: Dermatologist And Dermatopathologist Type: Allied Health Filed: 11/26/2020 1:55 PM [...] OTIS Glover November 26, 2020 1:[address] [facility] [address] ABD/PEL W IVCONon 021 CT ABD/PEL [...] chest CT performed will be reported separately. Payroll Officer (topogram) images: No additional findings. IMPRESSION: New 9 mm low-attenuation lesion in segment III when compared to 09/11/2020. Consider further characterization with MR or attention on follow-up. Votator Machine Operator: OFELIA Transcribe Date/Time: Nov 27 2020 8:01A Dictated by : ARACELI JUDGE MD This examination was interpreted and the report reviewed and electronically signed by: ARACELI JUDGE MD on Nov 27 2020 8:16AM EST [id number] CN Normal [facility] NURSING PROGon 11-26-2020 NURSING PROG HNO ID: [id number] Author: Amarilys (Rn) KVNG Sarabia Service: Nursing [...] November 26, 2020 TIME: 1:36 PM Normal [facility] Basic Metabolic Panlon 09-13 Anion gap [Moles/Vol] 10 mmol/L Normal 9-18 [facility] Comment on above: Performed By: #### P HOS, MG1, CBCDIF, BMP ####[place] [phone] Calcium [Mass/Vol] 8.6 mg/dL Normal 8.5-10.5 [facility] Comment on above: Performed By: #### P HOS, MG1, CBCDIF, BMP ####[place] [phone] Chloride [Moles/Vol] 100 mmol/L Normal 98-110 [facility] Comment on above: Result Comment: Revi ewed Performed By: #### P HOS, MG1, CBCDIF, BMP ####[place] [phone] CO2 [Moles/Vol] 27 mmol/L Normal 23-32 [facility] Comment on above: Performed By: #### P HOS, MG1, CBCDIF, BMP ####[place] [phone] Creatinine [Mass/Vol] 0.61 mg/dL Low 0.70-1.40 [facility] Comment on above: Performed By: #### P HOS, MG1, CBCDIF, BMP ####[place] [phone] eGFR- Amer. >60 Normal >60 [facility] Comment on above: Performed By: #### P HOS, MG1, CBCDIF, BMP ####[place] [phone] eGFR-All Other Races >60 Normal >60 [facility] Comment on above: Performed By: #### P HOS, MG1, CBCDIF, BMP ####[place] [phone] Glucose [Mass/Vol] 258 mg/dL High 65-100 [facility] Comment on above: Performed By: #### P HOS, MG1, CBCDIF, BMP ####[place] [phone] Potassium [Moles/Vol] 4.3 mmol/L Normal 3.5-5.0 [facility] Comment on above: Performed By: #### P HOS, MG1, CBCDIF, BMP ####[place] [phone] Sodium [Moles/Vol] 137 mmol/L Normal 132-148 [facility] Comment on above: Performed By: #### P HOS, MG1, CBCDIF, BMP ####[place] [phone] Urea nitrogen [Mass/Vol] 5 mg/dL Low 8-25 [facility] Comment on above: Performed By: #### P HOS, MG1, CBCDIF, BMP ####[place] [phone] CBC and Differentialon 09-13 Abs Baso 0.06 k/uL Normal <0.11 [facility] Comment on above: Performed By: #### P HOS, MG1, CBCDIF, BMP ####[place] [phone] Abs [place] 0.47 k/uL Normal <0.87 [facility] Comment on above: Performed By: #### P HOS, MG1, CBCDIF, BMP ####[place] [phone] Abs Neut 5.31 k/uL Normal 1.45-7.50 [facility] Comment on above: Performed By: #### P HOS, MG1, CBCDIF, BMP ####[place] [address] Absolute nRBC <0.01 Normal <0.01 [facility] Comment on above: Performed By: #### P HOS, MG1, CBCDIF, BMP ####[place] [address] Basophils/100 WBC (Bld) 0.7 % Normal [facility] Comment on above: Performed By: #### P HOS, MG1, CBCDIF, BMP ####[place] [address] DTYPE Auto Diff Normal [facility] Comment on above: Performed By: #### P HOS, MG1, CBCDIF, BMP ####[place] [address] Eosinophils (Bld) [#/Vol] 0.20 10*3/uL Normal <0.46 [facility] Comment on above: Performed By: #### P HOS, MG1, CBCDIF, BMP ####[place] [address] Eosinophils/100 WBC (Bld) 2.3 % Normal [facility] Comment on above: Performed By: #### P HOS, MG1, CBCDIF, BMP ####[place] [address] Erythrocyte distribution width (RBC) [Ratio] 14.6 % Normal 11.5-15.0 [facility] Comment on above: Performed By: #### P HOS, MG1, CBCDIF, BMP ####[place] [address] Hematocrit (Bld) [Volume fraction] 34.8 % Low 36.0-46.0 [facility] Comment on above: Performed By: #### P HOS, MG1, CBCDIF, BMP ####[place] [phone] Hemoglobin (Bld) [Mass/Vol] 11.3 g/dL Low 11.5-15.5 [facility] Comment on above: Performed By: #### P HOS, MG1, CBCDIF, BMP ####[place] [phone] Lymphocytes (Bld) [#/Vol] 2.68 10*3/uL Normal 1.00-4.0 0 [facility] Comment on above: Performed By: #### P HOS, MG1, CBCDIF, BMP ####[place] [phone] Lymphocytes/100 WBC (Bld) 30.7 % Normal [facility] Comment on above: Performed By: #### P HOS, MG1, CBCDIF, BMP ####[place] [phone] MCH 29.9 pG Normal 26.0-34.0 [facility] Comment on above: Performed By: #### P HOS, MG1, CBCDIF, BMP ####[place] [phone] MCHC (RBC) [Mass/Vol] 32.5 g/dL Normal 30.5-36.0 [facility] Comment on above: Performed By: #### P HOS, MG1, CBCDIF, BMP ####[place] [phone] MCV (RBC) [Entitic vol] 92.1 fL Normal 80.0-100.0 [facility] Comment on above: Performed By: #### P HOS, MG1, CBCDIF, BMP ####[phone] Monocytes/100 WBC (Bld) 5.4 % Normal [facility] Comment on above: Performed By: #### P HOS, MG1, CBCDIF, BMP ####[place] [phone] Neutrophils/100 WBC (Bld) 60.9 % Normal [facility] Comment on above: Performed By: #### P HOS, MG1, CBCDIF, BMP ####[place] [phone] NRBCs 0.0 /100 WBC Normal 0 [facility] Comment on above: Performed By: #### P HOS, MG1, CBCDIF, BMP ####[place] [phone] Platelet mean volume (Bld) [Entitic vol] 8.9 fL Low 9.0-12.7 [facility] Comment on above: Performed By: #### P HOS, MG1, CBCDIF, BMP ####[place] [phone] Platelets (Bld) [#/Vol] 550 10*3/uL High 150-400 [facility] Comment on above: Performed By: #### P HOS, MG1, CBCDIF, BMP ####[place] [phone] RBC (Bld) [#/Vol] 3.78 10*6/uL Low 3.90-5.20 [facility] Comment on above: Performed By: #### P HOS, MG1, CBCDIF, BMP ####[place] [phone] WBC (Bld) [#/Vol] 8.72 10*3/uL Normal 3.70-11.00 [facility] Comment on above: Performed By: #### P HOS, MG1, CBCDIF, BMP ####[address] [phone] CNDSon 09-13-2020 CNDS HNO ID: [id number] Author: Mahamed Perez MD Service: Critical Care Author Type: Resident Type: Discharge Summary Filed: 09/13/2020 11:36 AM Note Text: DISCHARGE SUMMARY PATIENT NAME: Honey Montes ADMISSION DATE: 09/11/2020 DISCHARGE DATE: 09/13/2020 ATTENDING PHYSICIAN: Jr Sinha Code Status: Not on file Highest Readmission [...] Department Center 09/17/2020 5:20 PM Jr Lugoin [id number] [facility] 11/26/2020 8:30 AM Rosana Mchugh MD [...] September 13, 2020 TIME: 11:34 AM Normal [facility] Magnesiumon 09-13-2020 Magnesium [Mass/Vol] 1.6 mg/dL Low 1.7-2.6 [facility] Comment on above: Performed By: #### P HOS, MG1, CBCDIF, BMP ####[facility] [place], [place] [phone] NURSING PROGon 09-13-2020 NURSING PROG HNO ID: [id number] Author: Abelardo (Rn) KVNG Trujillo Service: ? Author Type: Registered Nurse Type: Nursing Progress Note Filed: 09/13/2020 7:46 AM Note Text: Nursing Progress Note Patient Name: [facility] Montes [id number]: 2101: Pt is axox3, pleasant, s1/s2 regular, lungs clear, bowel sounds present, midline incision well approximated. Pt c/o pain, administered oxycodone 10 mg per DEC. No further needs at this time. WCTM. 0300: Pt c/o pain 04/24. Administered oxcodone 10 mg per DEC. 714: Report given to day shift. This note was completed by: Abelardo Trujillo, RN Normal [facility] Phosphoruson 09-13-2020 Phosphate [Mass/Vol] 5.4 mg/dL High 2.5-4.5 [facility] Comment on above: Performed By: #### P HOS, MG1, CBCDIF, BMP ####[address] [phone] APTTon 09-12-2020 aPTT Coag (Bld) [Time] 25.4 s Normal 23.0-32.4 [facility] Comment on above: Result Comment: Unfr actionated [...] laboratory APTT reagent in use throughout the [facility]. Performed By: #### C BC, BMP, PHOS, MG1 #### [place] [id number] Basic Metabolic Panlon 09-12 Anion gap [Moles/Vol] 11 mmol/L Normal 9-18 [facility] Comment on above: Performed By: #### C BC, BMP, PHOS, MG1 #### [place] [phone] Calcium [Mass/Vol] 8.9 mg/dL Normal 8.5-10.5 [facility] Comment on above: Performed By: #### C BC, BMP, PHOS, MG1 #### [place] [phone] Chloride [Moles/Vol] 109 mmol/L Normal 98-110 [facility] Comment on above: Performed By: #### C BC, BMP, PHOS, MG1 #### [place] [phone] CO2 [Moles/Vol] 22 mmol/L Low 23-32 [facility] Comment on above: Performed By: #### C BC, BMP, PHOS, MG1 #### [place] [phone] Creatinine [Mass/Vol] 0.51 mg/dL Low 0.70-1.40 [facility] Comment on above: Performed By: #### C BC, BMP, PHOS, MG1 #### [place] [phone] eGFR- Amer. >60 Normal >60 [facility] Comment on above: Performed By: #### C BC, BMP, PHOS, MG1 #### [place] [phone] eGFR-All Other Races >60 Normal >60 [facility] Comment on above: Performed By: #### C BC, BMP, PHOS, MG1 #### [place] [phone] Glucose [Mass/Vol] 65 mg/dL Normal 65-100 [facility] Comment on above: Performed By: #### C BC, BMP, PHOS, MG1 #### [place] [phone] Potassium [Moles/Vol] 4.7 mmol/L Normal 3.5-5.0 [facility] Comment on above: Performed By: #### C BC, BMP, PHOS, MG1 #### [place] [phone] Sodium [Moles/Vol] 142 mmol/L Normal 132-148 [facility] Comment on above: Performed By: #### C BC, BMP, PHOS, MG1 #### [place] [phone] Urea nitrogen [Mass/Vol] 4 mg/dL Low 8-25 [facility] Comment on above: Performed By: #### C BC, BMP, PHOS, MG1 #### [place] [phone] CBC and Differentialon 09-12 Abs Baso 0.05 k/uL Normal <0.11 [facility] Comment on above: Performed By: #### C BC, BMP, PHOS, MG1 #### [place] [phone] Abs [place] 0.49 k/uL Normal <0.87 [facility] Comment on above: Performed By: #### C BC, BMP, PHOS, MG1 #### [place] [phone] Abs Neut 4.46 k/uL Normal 1.45-7.50 [facility] Comment on above: Performed By: #### C BC, BMP, PHOS, MG1 #### [place] [phone] Absolute nRBC <0.01 Normal <0.01 [facility] Comment on above: Performed By: #### C BC, BMP, PHOS, MG1 #### [place] [phone] Basophils/100 WBC (Bld) 0.6 % Normal [facility] Comment on above: Performed By: #### C BC, BMP, PHOS, MG1 #### [phone] DTYPE Auto Diff Normal [facility] Comment on above: Performed By: #### C BC, BMP, PHOS, MG1 #### [place] [address] Eosinophils (Bld) [#/Vol] 0.25 10*3/uL Normal <0.46 [facility] Comment on above: Performed By: #### C BC, BMP, PHOS, MG1 #### [place] [phone] Eosinophils/100 WBC (Bld) 3.1 % Normal [facility] Comment on above: Performed By: #### C BC, BMP, PHOS, MG1 #### [place] [address] Erythrocyte distribution width (RBC) [Ratio] 15.0 % Normal 11.5-15.0 [facility] Comment on above: Performed By: #### C BC, BMP, PHOS, MG1 #### [place] [address] Hematocrit (Bld) [Volume fraction] 32.2 % Low 36.0-46.0 [facility] Comment on above: Performed By: #### C BC, BMP, PHOS, MG1 #### [place] [address] Hemoglobin (Bld) [Mass/Vol] 10.4 g/dL Low 11.5-15.5 [facility] Comment on above: Performed By: #### C BC, BMP, PHOS, MG1 #### [address] Lymphocytes (Bld) [#/Vol] 2.82 10*3/uL Normal 1.00-4.0 0 [facility] Comment on above: Performed By: #### C BC, BMP, PHOS, MG1 #### [address] Lymphocytes/100 WBC (Bld) 34.9 % Normal [facility] Comment on above: Performed By: #### C BC, BMP, PHOS, MG1 #### [phone] MCH 30.2 pG Normal 26.0-34.0 [facility] Comment on above: Performed By: #### C BC, BMP, PHOS, MG1 #### [place] [phone] MCHC (RBC) [Mass/Vol] 32.3 g/dL Normal 30.5-36.0 [facility] Comment on above: Performed By: #### C BC, BMP, PHOS, MG1 #### [place] [phone] MCV (RBC) [Entitic vol] 93.6 fL Normal 80.0-100.0 [facility] Comment on above: Performed By: #### C BC, BMP, PHOS, MG1 #### [place] [phone] Monocytes/100 WBC (Bld) 6.1 % Normal [facility] Comment on above: Performed By: #### C BC, BMP, PHOS, MG1 #### [phone] Neutrophils/100 WBC (Bld) 55.3 % Normal [facility] Comment on above: Performed By: #### C BC, BMP, PHOS, MG1 #### [place] [phone] NRBCs 0.0 /100 WBC Normal 0 [facility] Comment on above: Performed By: #### C BC, BMP, PHOS, MG1 #### [phone] Platelet mean volume (Bld) [Entitic vol] 9.2 fL Normal 9.0-12.7 [facility] Comment on above: Performed By: #### C BC, BMP, PHOS, MG1 #### [place] [phone] Platelets (Bld) [#/Vol] 544 10*3/uL High 150-400 [facility] Comment on above: Performed By: #### C BC, BMP, PHOS, MG1 #### [place] [phone] RBC (Bld) [#/Vol] 3.44 10*6/uL Low 3.90-5.20 [facility] Comment on above: Performed By: #### C BC, BMP, PHOS, MG1 #### [place] [phone] WBC (Bld) [#/Vol] 8.09 10*3/uL Normal 3.70-11.00 [facility] Comment on above: Performed By: #### C BC, BMP, PHOS, MG1 #### [place] [phone] Magnesiumon 09-12-2020 Magnesium [Mass/Vol] 1.8 mg/dL Normal 1.7-2.6 [facility] Comment on above: Performed By: #### C BC, BMP, PHOS, MG1 #### [place] [phone] NURSING PROGon 09-12-2020 NURSING PROG HNO ID: [id number] Author: Kianna (Rn) KVNG Busby Service: Nursing Author Type: Registered Nurse Type: Nursing Progress Note Filed: 09/12/2020 12:26 AM Note Text: Nursing Progress Note Patient Name: Honey Montes [facility]3A04/[id number]-41 Daily Note: 0026: Pt requesting KOKON Peetrson and Paged surgical forceps fabricator for order. This note was completed by: Kianna Busby RN [facility] NURSING PROG HNO ID: [id number] Author: Kianna Vidal) KVNG Busby Service: Nursing Author Type: Registered Nurse Type: Nursing Progress Note Filed: 09/12/2020 12:25 AM Note Text: Nursing Progress Note Patient Name: Honye Montes Patient Location: [facility]/ Transfer Note: Patient transferred into room/unit 304 in stable condition. Actions taken: Report given by Mahamed in ED. No futher actions taken at this time. Will continue to monitor and check with patient. Paged surgery for orders. This note was completed by: Kianna Busby RN Normal [facility] Phosphoruson 09-12-2020 Phosphate [Mass/Vol] 5.0 mg/dL High 2.5-4.5 [facility] Comment on above: Performed By: #### C BC, BMP, PHOS, MG1 #### [facility] [address] [place] [address] Protimeon 09-12-2020 PT INR 1.0 Normal 0.9-1.3 [facility] Comment on above: Result Comment: Ana min K Antagonist (VKA) Therapeutic Range: INR 2 to 3 (Target INR of 2.5) Note: For patients treated with VKA drugs, such as warfarin, the [place] [employer] 2012 Guideline recommends [...] Chest 2012, 141:7S-47S Emmanuel RA, et al. [facility] 2017, 70: 252-289 Performed By: #### C BC, BMP, PHOS, MG1 #### [place] [phone] PT Sec 11.0 sec Normal 9.7-13.0 [facility] Comment on above: Performed By: #### C BC, BMP, PHOS, MG1 #### [place] [phone] Type and Screenon 09-12-2020 ABO/RH(D) Positive Normal [facility] Comment on above: Performed By: #### C BC, BMP, PHOS, MG1 #### [place] [phone] CBC and Differentialon 09-11 Abs Baso 0.07 k/uL Normal <0.11 [facility] Comment on above: Performed By: #### C MP, LIPA, MG1, CBCDIF #### [place] [phone] Abs [place] 0.56 k/uL Normal <0.87 [facility] Comment on above: Performed By: #### C MP, LIPA, MG1, CBCDIF #### [place] [phone] Abs Neut 5.17 k/uL Normal 1.45-7.50 [facility] Comment on above: Performed By: #### C MP, LIPA, MG1, CBCDIF #### [place] [phone] Absolute nRBC <0.01 Normal <0.01 [facility] Comment on above: Performed By: #### C MP, LIPA, MG1, CBCDIF #### [place] [phone] Basophils/100 WBC (Bld) 0.8 % Normal [facility] Comment on above: Performed By: #### C MP, LIPA, MG1, CBCDIF #### [place] [phone] DTYPE Auto Diff Normal [facility] Comment on above: Performed By: #### C MP, LIPA, MG1, CBCDIF #### [place] [id number] Eosinophils (Bld) [#/Vol] 0.27 10*3/uL Normal <0.46 [facility] Comment on above: Performed By: #### C MP, LIPA, MG1, CBCDIF #### [place] [id number] Eosinophils/100 WBC (Bld) 2.9 % Normal [facility] Comment on above: Performed By: #### C MP, LIPA, MG1, CBCDIF #### [place] [id number] Erythrocyte distribution width (RBC) [Ratio] 15.0 % Normal 11.5-15.0 [facility] Comment on above: Performed By: #### C MP, LIPA, MG1, CBCDIF #### [place] [address] Hematocrit (Bld) [Volume fraction] 36.4 % Normal 36.0-46.0 [facility] Comment on above: Performed By: #### C MP, LIPA, MG1, CBCDIF #### [address] Hemoglobin (Bld) [Mass/Vol] 11.6 g/dL Normal 11.5-15.5 [facility] Comment on above: Performed By: #### C MP, LIPA, MG1, CBCDIF #### [address] Lymphocytes (Bld) [#/Vol] 3.20 10*3/uL Normal 1.00-4.0 0 [facility] Comment on above: Performed By: #### C MP, LIPA, MG1, CBCDIF #### [place] [phone] Lymphocytes/100 WBC (Bld) 34.5 % Normal [facility] Comment on above: Performed By: #### C MP, LIPA, MG1, CBCDIF #### [place] [phone] MCH 29.7 pG Normal 26.0-34.0 [facility] Comment on above: Performed By: #### C MP, LIPA, MG1, CBCDIF #### [place] [phone] MCHC (RBC) [Mass/Vol] 31.9 g/dL Normal 30.5-36.0 [facility] Comment on above: Performed By: #### C MP, LIPA, MG1, CBCDIF #### [place] [phone] MCV (RBC) [Entitic vol] 93.3 fL Normal 80.0-100.0 [facility] Comment on above: Performed By: #### C MP, LIPA, MG1, CBCDIF #### [place] [phone] Monocytes/100 WBC (Bld) 6.0 % Normal [facility] Comment on above: Performed By: #### C MP, LIPA, MG1, CBCDIF #### [place] [phone] Neutrophils/100 WBC (Bld) 55.8 % Normal [facility] Comment on above: Performed By: #### C MP, LIPA, MG1, CBCDIF #### [place] [phone] NRBCs 0.0 /100 WBC Normal 0 [facility] Comment on above: Performed By: #### C MP, LIPA, MG1, CBCDIF #### [place] [phone] Platelet mean volume (Bld) [Entitic vol] 8.9 fL Low 9.0-12.7 [facility] Comment on above: Performed By: #### C MP, LIPA, MG1, CBCDIF #### [place] [phone] Platelets (Bld) [#/Vol] 565 10*3/uL High 150-400 [facility] Comment on above: Performed By: #### C MP, LIPA, MG1, CBCDIF #### [place] [address] RBC (Bld) [#/Vol] 3.90 10*6/uL Normal 3.90-5.20 [facility] Comment on above: Performed By: #### C MP, LIPA, MG1, CBCDIF #### [place] [address] WBC (Bld) [#/Vol] 9.27 10*3/uL Normal 3.70-11.00 [facility] Comment on above: Performed By: #### C MP, LIPA, MG1, CBCDIF #### [place] [address] CONSULTon 09-11-2020 CONSULT HNO ID: [id number] Author: Wally Hayes Service: General Surgery Author [...] the ED AMA and came to the [facility] ED. She passed a bowel movement [...] 2017 - STEMI (ST elevation myocardial infarction) ([facility]) 03/2018 s/p PTCA-SUNITHA - Tobacco [...] 08/31/2020, partial (more content not included)... Normal [facility] CT-CT ABDOMEN AND PELVIS W C ONT IMPORTon 09-11-2020 CT-CT ABDOMEN AND PELVIS W CONT IMPORT Images were obtained outside of [facility] [id number] CN Normal [facility] Comp Metabolic Panelon 09-11 Albumin [Mass/Vol] 3.8 g/dL Normal 3.5-5.0 [facility] Comment on above: Performed By: #### C MP, LIPA, MG1, CBCDIF #### [place] [phone] ALP [Catalytic activity/Vol] 89 U/L Normal 34-123 [facility] Comment on above: Performed By: #### C MP, LIPA, MG1, CBCDIF #### [place] [phone] ALT [Catalytic activity/Vol] 19 U/L Normal 0-45 [facility] Comment on above: Performed By: #### C MP, LIPA, MG1, CBCDIF #### [place] [phone] Anion gap [Moles/Vol] 8 mmol/L Low 9-18 [facility] Comment on above: Performed By: #### C MP, LIPA, MG1, CBCDIF #### [place] [phone] AST [Catalytic activity/Vol] 18 U/L Normal 7-40 [facility] Comment on above: Performed By: #### C MP, LIPA, MG1, CBCDIF #### [place] [phone] Bilirubin [Mass/Vol] mg/dL Low 0.2-1.3 [facility] Comment on above: Performed By: #### C MP, LIPA, MG1, CBCDIF #### [place] [phone] Calcium [Mass/Vol] 9.1 mg/dL Normal 8.5-10.5 [facility] Comment on above: Performed By: #### C MP, LIPA, MG1, CBCDIF #### [place] [phone] Chloride [Moles/Vol] 101 mmol/L Normal 98-110 [facility] Comment on above: Performed By: #### C MP, LIPA, MG1, CBCDIF #### [place] [phone] CO2 [Moles/Vol] 29 mmol/L Normal 23-32 [facility] Comment on above: Performed By: #### C MP, LIPA, MG1, CBCDIF #### [place] [phone] Creatinine [Mass/Vol] 0.65 mg/dL Low 0.70-1.40 [facility] Comment on above: Performed By: #### C MP, LIPA, MG1, CBCDIF #### [place] [phone] eGFR- Amer. >60 Normal >60 [facility] Comment on above: Performed By: #### C MP, LIPA, MG1, CBCDIF #### [place] [phone] eGFR-All Other Races >60 Normal >60 [facility] Comment on above: Performed By: #### C MP, LIPA, MG1, CBCDIF #### [place] [phone] Glucose [Mass/Vol] 85 mg/dL Normal 65-100 [facility] Comment on above: Performed By: #### C MP, LIPA, MG1, CBCDIF #### [place] [phone] Potassium [Moles/Vol] 3.8 mmol/L Normal 3.5-5.0 [facility] Comment on above: Performed By: #### C MP, LIPA, MG1, CBCDIF #### [phone] Protein [Mass/Vol] 6.6 g/dL Normal 6.0-8.4 [facility] Comment on above: Performed By: #### C MP, LIPA, MG1, CBCDIF #### [facility] [address] [place] [phone] Sodium [Moles/Vol] 138 mmol/L Normal 132-148 [facility] Comment on above: Performed By: #### C MP, LIPA, MG1, CBCDIF #### [facility] [address] [place] [phone] Urea nitrogen [Mass/Vol] 3 mg/dL Low 8-25 [facility] Comment on above: Performed By: #### C MP, LIPA, MG1, CBCDIF #### [place] [phone] [place] [phone] Coronavirus 2019on 0 SARS-CoV-2 (COVID-19) RNA MARQUITA+probe Ql (Unsp spec) UPPER RESPIRATORY TRACT SWAB Normal [facility] Comment on above: Performed By: #### C BC, BMP, PHOS, MG1 #### [place] [phone] SARS-CoV-2 (COVID-19) RNA MARQUITA+probe Ql (Unsp spec) Negative Normal Negative for COVID19 (SARS CoV2) by PCR. [facility] Comment on above: Result Comment: This test was developed and its performance characteristics determined by [facility] [place]. This test has been authorized by FDA [...] #### C BC, BMP, PHOS, MG1 #### [place] [phone] ED NOTEon 09-11-2020 ED NOTE HNO ID: [id number] Author: Mahamed (Rn) KV[facility] Matute Service: ? Author Type: Registered Nurse Type: ED Notes Filed: 09/11/2020 9:18 PM Note Text: DEMETRIA walked to lab Normal [facility] ED NOTE HNO ID: [id number] Author: Mahamed RobertsonRn) KVNG Matute Service: ? Author Type: Registered Nurse Type: ED Notes Filed: 09/11/2020 9:24 PM Note Text: Pt states can I get something else for pain instead of morphine. Morphine doesn't work for me . PA notified. [facility] ED NOTE HNO ID: [id number] Author: Neela RobertsonRn) KVNG Avila Service: ? Author Type: Registered Nurse Type: ED Notes Filed: 09/11/2020 7:11 PM Note Text: Report to KVNG Irby. [facility] ED NOTE HNO ID: [id number] Author: Neela RobertsonRn) KVNG Avila Service: ? [...] to come here and see Dr. Vargas. [facility] ED NOTE HNO ID: [id number] Author: Juani RobertsonRn) K[facility]NG Castellanos Service: ? Author Type: Registered Nurse Type: ED Notes Filed: 09/11/2020 6:34 PM Note Text: Bed: 16-ED Expected date: Expected time: Means of arrival: Comments: Triage [facility] ED PROV NOTEon 09-11-2020 ED PROV NOTE HNO ID: [id number] Author: Juani Edwards DO Service: Emergency Medicine [...] components within normal limits URINALYSIS WITH MICROSCOPIC (AK,AV,EU,FV,HL,CYNDI,M M,SP) - Abnormal; Notable for the [...] 2207 Abdominal (more content not included)... Normal [facility] Lipaseon 09-11-2020 Lipase [Catalytic activity/Vol] 24 U/L Normal 16-61 [facility] Comment on above: Performed By: #### C MP, LIPA, MG1, CBCDIF #### [place] [phone] Magnesiumon 09-11-2020 Magnesium [Mass/Vol] 1.9 mg/dL Normal 1.7-2.6 [facility] Comment on above: Performed By: #### C MP, LIPA, MG1, CBCDIF ####[place] [phone] Sepsis Lactateon 09-11-2020 Sepsis Lactate 0.7 mmol/L Normal 0.5-2.0 [facility] Comment on above: Performed By: #### C BC, BMP, PHOS, MG1 #### [place] [address] Urinalysis with Microscopico n 09-11-2020 Bilirubin, Urine Negative Normal Negative [facility] Comment on above: Performed By: #### U AWMIC #### [address] Clarity (U) Clear Normal Clear [facility] Comment on above: Performed By: #### U AWMIC #### [place] [address] Color (U) Colorless Critically abnormal Yellow [facility] Comment on above: Performed By: #### U AWMIC #### [place] [phone] Comments SEE COMMENT Normal [facility] Comment on above: Result Comment: Micr oscopic Examination Performed Performed By: #### U AWMIC #### [place] [address] Epithelial cells LM Ql (Urine sed) SEE COMMENT Critically abnormal Negative [facility] Comment on above: Result Comment: Rare Squamous Epithelial Cells Performed By: #### U AWMIC #### [place] [phone] Glucose Ql (U) Negative Normal Negative [facility] Comment on above: Performed By: #### U AWMIC #### [place] [phone] Hemoglobin/Blood,Ur Negative Normal Negative [facility] Comment on above: Performed By: #### U AWMIC #### [place] [address] Ketones Ql (U) Negative Normal Negative [facility] Comment on above: Performed By: #### U AWMIC #### [place] [address] Leukest Negative Normal Negative [facility] Comment on above: Performed By: #### U AWMIC #### [place] [address] Nitrite Ql (U) Negative Normal Negative [facility] Comment on above: Performed By: #### U AWMIC #### [place] [address] pH (U) 6.5 [pH] Normal 5.0-8.0 [facility] Comment on above: Performed By: #### U AWMIC #### [place] [address] Protein, Urine Negative Normal Negative [facility] Comment on above: Performed By: #### U AWMIC #### [place] [address] RBC (U) [#/Vol] Negative Normal [facility] Comment on above: Performed By: #### U AWMIC #### [place] [address] Specific [place], Ur 1.017 Normal 1.005-1 .03 0 [facility] Comment on above: Performed By: #### U AWMIC #### [place] [address] Urobilinogen (U) [Mass/Vol] Negative Normal Negative [facility] Comment on above: Performed By: #### U AWMIC #### [place] [id number] WBC Rare Critically abnormal Negative [facility] Comment on above: Performed By: #### U AWMIC #### [place] [phone] Basic Metabolic Panlon 09-04 Anion gap [Moles/Vol] 9 mmol/L Normal 9-18 [facility] Comment on above: Performed By: #### C BC, BMP, PHOS, MG1 #### [place] [phone] Calcium [Mass/Vol] 9.2 mg/dL Normal 8.5-10.5 [facility] Comment on above: Performed By: #### C BC, BMP, PHOS, MG1 #### [place] [phone] Chloride [Moles/Vol] 102 mmol/L Normal 98-110 [facility] Comment on above: Performed By: #### C BC, BMP, PHOS, MG1 #### [place] [phone] CO2 [Moles/Vol] 27 mmol/L Normal 23-32 [facility] Comment on above: Performed By: #### C BC, BMP, PHOS, MG1 #### [place] [phone] Creatinine [Mass/Vol] 0.53 mg/dL Low 0.70-1.40 [facility] Comment on above: Performed By: #### C BC, BMP, PHOS, MG1 #### [place] [phone] eGFR- Amer. >60 Normal >60 [facility] Comment on above: Performed By: #### C BC, BMP, PHOS, MG1 #### [place] [phone] eGFR-All Other Races >60 Normal >60 [facility] Comment on above: Performed By: #### C BC, BMP, PHOS, MG1 #### [place] [phone] Glucose [Mass/Vol] 82 mg/dL Normal 65-100 [facility] Comment on above: Performed By: #### C BC, BMP, PHOS, MG1 #### [place] [phone] Potassium [Moles/Vol] 5.1 mmol/L High 3.5-5.0 [facility] Comment on above: Result Comment: Revi ewed Performed By: #### C BC, BMP, PHOS, MG1 #### [place] [phone] Sodium [Moles/Vol] 138 mmol/L Normal 132-148 [facility] Comment on above: Performed By: #### C BC, BMP, PHOS, MG1 #### [place] [phone] Urea nitrogen [Mass/Vol] 3 mg/dL Low 8-25 [facility] Comment on above: Performed By: #### C BC, BMP, PHOS, MG1 #### [place] [phone] CBCon 09-04-2020 Absolute nRBC <0.01 Normal <0.01 [facility] Comment on above: Performed By: #### C BC, BMP, PHOS, MG1 #### [place] [phone] Erythrocyte distribution width (RBC) [Ratio] 14.3 % Normal 11.5-15.0 [facility] Comment on above: Performed By: #### C BC, BMP, PHOS, MG1 #### [place] [phone] Hematocrit (Bld) [Volume fraction] 31.4 % Low 36.0-46.0 [facility] Comment on above: Performed By: #### C BC, BMP, PHOS, MG1 #### [phone] Hemoglobin (Bld) [Mass/Vol] 10.4 g/dL Low 11.5-15.5 [facility] Comment on above: Performed By: #### C BC, BMP, PHOS, MG1 #### [place] [phone] MCH 30.1 pG Normal 26.0-34.0 [facility] Comment on above: Performed By: #### C BC, BMP, PHOS, MG1 #### [place] [phone] MCHC (RBC) [Mass/Vol] 33.1 g/dL Normal 30.5-36.0 [facility] Comment on above: Performed By: #### C BC, BMP, PHOS, MG1 #### [phone] MCV (RBC) [Entitic vol] 91.0 fL Normal 80.0-100.0 [facility] Comment on above: Performed By: #### C BC, BMP, PHOS, MG1 #### [place] [phone] Platelet mean volume (Bld) [Entitic vol] 10.6 fL Normal 9.0-12.7 [facility] Comment on above: Performed By: #### C BC, BMP, PHOS, MG1 #### [phone] Platelets (Bld) [#/Vol] 244 10*3/uL Normal 150-400 [facility] Comment on above: Performed By: #### C BC, BMP, PHOS, MG1 #### [phone] RBC (Bld) [#/Vol] 3.45 10*6/uL Low 3.90-5.20 [facility] Comment on above: Performed By: #### C BC, BMP, PHOS, MG1 #### [place] [phone] WBC (Bld) [#/Vol] 8.87 10*3/uL Normal 3.70-11.00 [facility] Comment on above: Performed By: #### C BC, BMP, PHOS, MG1 #### [facility] [address] [place] [phone] [facility] 09-04-2020 DS HNO ID: [id number] Author: Earl Loo Service: General Surgery Author Type: Resident Type: Discharge Summary Filed: 09/04/2020 3:40 PM Note Text: The [address] [address] or (022) CC-CARE C O N F I D [...] Anxiety Disorder, Unspecified Atherosclerotic Heart Disease of [place] Coronary Artery Without Angina Pectoris Gastrointestinal Hemorrhage, Unspecified Prison (Current) Use of Antithrombotics/Anti platelets Cigarette Nicotine [...] PATIENT NAME: April (more content not included)... [facility] CONSULT PROGon 09-04-2020 CONSULT PROG HNO ID: [id number] Author: Haleigh (Chelsea Case Service: Pain Management [...] 36.0 g/d (more content not included)... Normal [facility] Magnesiumon 09-04-2020 Magnesium [Mass/Vol] 2.0 mg/dL Normal 1.7-2.6 [facility] Comment on above: Result Comment: Revi ewed Performed By: #### C ALEX, YAZMIN, KEORNS, MG1 #### [facility] [address] [place] [address] NURSING PROGon 09-04-2020 NURSING PROG HNO ID: [id number] Author: Philly RobertsonRn) KVNG Grossman Service: Nursing [...] note was completed by: Philly Grossman RN [facility] NURSING PROG HNO ID: [id number] Author: Philly RobertsonRn) KVNG Grossman Service: Nursing [...] note was completed by: Philly Grossman RN [facility] NURSING PROG HNO ID: [id number] Author: Abelardo (Rn) KVNG Trujillo Service: ? [...] note was completed by: Abelardo Trujillo RN [facility] Phosphoruson 09-04-2020 Phosphate [Mass/Vol] 4.3 mg/dL Normal 2.5-4.5 [facility] Comment on above: Performed By: #### C BC, BMP, PHOS, MG1 #### [place] [address] THERAPY NTon 09-04-2020 THERAPY NT HNO ID: [id number] Author: Vinita (Pt) Jenna Service: Physical Therapy Author Type: Physical Therapist Type: Therapy (PT/OT/Speech/Resp) Filed: 09/04/2020 11:49 AM Note Text: Physical Therapy Treatment SERVICE DATE: 09/04/2020 SERVICE TIME: 1107 to 1117 ROOM: [place] [address] Recommended Discharge Disposition: Home PT Anticipated Discharge [...] for Hospital Admission: Neuroendocrine Mass, refer to [facility] Relevant Past Medical History: NSTEMI, Anxiety Disorder, DM II, Smoker, Breast CA, refer to [facility] Physical Therapy Problem List: Pain;Safety Deficits;Functional Mobility [...] floor Activity Tolerance: Standing Activity Standing Activity: [id number]-cp-[id number]; gait training without assistive device Standing Activity [...] Diagnosis: Reduced mobility-other Interventions Provided: Gait Training (90483) Gait Training (87571) Treatment Minutes: 10 Tmz-rp-[id number]/stand-t o-sit transfers with cues provided to push up from the chair and to reach back for the chair respectively for safety. Gait training without an assistive device. No loss of balance. Cues provided to slowly down on turns for safety. $ Gait Training (98421) Billed Units: 1 unit Total Timed Code [...] September 04, 2020 TIME: 11:49 AM Normal [facility] Basic Metabolic Panlon 09-03 Anion gap [Moles/Vol] 7 mmol/L Low - [facility] Comment on above: Performed By: #### C YAZMIN JOHNSON, PHOS, MG1 #### [facility] [address] [place] [address] Calcium [Mass/Vol] 8.8 mg/dL Normal 8.5-10.5 [facility] Comment on above: Performed By: #### C YAZMIN JOHNSON, PHOS, MG1 #### [place] [address] Chloride [Moles/Vol] 101 mmol/L Normal 98-110 [facility] Comment on above: Performed By: #### C BC, BMP, PHOS, MG1 #### [place] [address] CO2 [Moles/Vol] 30 mmol/L Normal 23-32 [facility] Comment on above: Performed By: #### C BC, BMP, PHOS, MG1 #### [place] [address] Creatinine [Mass/Vol] 0.62 mg/dL Low 0.70-1.40 [facility] Comment on above: Performed By: #### C BC, BMP, PHOS, MG1 #### [place] [address] eGFR- Amer. >60 Normal >60 [facility] Comment on above: Performed By: #### C BC, BMP, PHOS, MG1 #### [place] [address] eGFR-All Other Races >60 Normal >60 [facility] Comment on above: Performed By: #### C BC, BMP, PHOS, MG1 #### [place] [address] Glucose [Mass/Vol] 85 mg/dL Normal 65-100 [facility] Comment on above: Performed By: #### C BC, BMP, PHOS, MG1 #### [place] [address] Potassium [Moles/Vol] 4.2 mmol/L Normal 3.5-5.0 [facility] Comment on above: Performed By: #### C BC, BMP, PHOS, MG1 #### [place] [address] Sodium [Moles/Vol] 138 mmol/L Normal 132-148 [facility] Comment on above: Performed By: #### C BC, BMP, PHOS, MG1 #### [place] [phone] Urea nitrogen [Mass/Vol] 4 mg/dL Low 8-25 [facility] Comment on above: Performed By: #### C BC, BMP, PHOS, MG1 #### [place] [phone] CBCon 09-03-2020 Absolute nRBC <0.01 Normal <0.01 [facility] Comment on above: Performed By: #### C BC, BMP, PHOS, MG1 #### [address] Erythrocyte distribution width (RBC) [Ratio] 14.5 % Normal 11.5-15.0 [facility] Comment on above: Performed By: #### C BC, BMP, PHOS, MG1 #### [place] [phone] Hematocrit (Bld) [Volume fraction] 31.1 % Low 36.0-46.0 [facility] Comment on above: Performed By: #### C BC, BMP, PHOS, MG1 #### [place] [phone] Hemoglobin (Bld) [Mass/Vol] 10.4 g/dL Low 11.5-15.5 [facility] Comment on above: Performed By: #### C BC, BMP, PHOS, MG1 #### [place] [phone] MCH 30.0 pG Normal 26.0-34.0 [facility] Comment on above: Performed By: #### C BC, BMP, PHOS, MG1 #### [place] [phone] MCHC (RBC) [Mass/Vol] 33.4 g/dL Normal 30.5-36.0 [facility] Comment on above: Performed By: #### C BC, BMP, PHOS, MG1 #### [place] [phone] MCV (RBC) [Entitic vol] 89.6 fL Normal 80.0-100.0 [facility] Comment on above: Performed By: #### C BC, BMP, PHOS, MG1 #### [place] [phone] Platelet mean volume (Bld) [Entitic vol] 10.7 fL Normal 9.0-12.7 [facility] Comment on above: Performed By: #### C BC, BMP, PHOS, MG1 #### [place] [phone] Platelets (Bld) [#/Vol] 218 10*3/uL Normal 150-400 [facility] Comment on above: Performed By: #### C BC, BMP, PHOS, MG1 #### [place] [phone] RBC (Bld) [#/Vol] 3.47 10*6/uL Low 3.90-5.20 [facility] Comment on above: Performed By: #### C BC, BMP, PHOS, MG1 #### [place] [phone] WBC (Bld) [#/Vol] 10.24 10*3/uL Normal 3.70-11.00 [facility] Comment on above: Performed By: #### C BC, BMP, PHOS, MG1 #### [place] [address] CONSULT PROGon 09-03-2020 CONSULT PROG HNO ID: [id number] Author: Nancy Perez Service: Pain Management Author Type: Physician Acetylene Torch Operator Type: Consult Progress Note Filed: 09/03/2020 9:08 [...] She is clear liquid diet, on fentanyl [employer] 0/20/10/6 last 24 hrs bolus utilized (1760 [...] (NEURONTIN) 600 mg ORAL TID - fentaNYL FIELD SALES CONSULTANT 20 mcg/mL in NaCl 0.9% 100 mL [...] Gastrointestinal Exam: Abdomen: diffuse tenderness with palpation. [place] in place midline. Drain in place. NG?: [...] (L) Creatinin (more content not included)... Normal [facility] Magnesiumon 09-03-2020 Magnesium [Mass/Vol] 1.6 mg/dL Low 1.7-2.6 [facility] Comment on above: Performed By: #### C BC, BMP, PHOS, MG1 #### [facility] [address] [place] [address] NURSING PROGon 09-03-2020 NURSING PROG HNO ID: [id number] Author: Philly (Rn) KVNG Grossman Service: Nursing Author Type: Registered Nurse Type: Nursing Progress Note Filed: 09/03/2020 4:08 PM Note Text: Nursing Progress Note Patient Name: Honey Montes Patient Location: [place] [address] Daily Note: 1100: Spoke with Emelia Loo (res): orders to discontinue continuous pulse ox, Full liquid diet, and IVF at O. 1230: order for continuous pulse ox, re-ordered. Placed on patient. SaO2 100% on RA. And HR 75 at bpm. Pt ate 100% of Full liquid diet try. 1317: Paged [place] Team Re: mag level 1.6 this Am. 1400: Patient voiced that she is now passing gas. 1608: Orders Received for mag 4gm IVP This note was completed by: Philly Grossman RN Normal [facility] Phosphoruson 09-03-2020 Phosphate [Mass/Vol] 3.4 mg/dL Normal 2.5-4.5 [facility] Comment on above: Performed By: #### C BC, BMP, PHOS, MG1 #### [facility] [address] [place] [address] THERAPY NTon 09-03-2020 THERAPY NT HNO ID: [id number] Author: Windy (Ot) Gabriela Service: Occupational Therapy Author Type: Occupational Therapist Type: Therapy (PT/OT/Speech/Resp) Filed: 09/03/2020 10:31 AM Note Text: OCCUPATIONAL THERAPY MISSED VISIT SERVICE DATE: 09/03/2020 SERVICE TIME: 1021 to 1021 ROOM: [place] [address] Attempted Treatment. Patient not seen due to Declined(Pt just ambulated unit with her Dtr, and requesting a rest.). Will continue to monitor the Pt, and see as able. SIGNATURE: Windy Ochoa, OTR/L PATIENT NAME: Honey Montes DATE: September 03, 2020 TIME: 10:31 AM Normal [facility] Basic Metabolic Panlon 09-02 Anion gap [Moles/Vol] 9 mmol/L Normal 07-03 [facility] Comment on above: Performed By: #### C BC, BMP, PHOS, MG1 #### [facility] [address] [place] [address] Calcium [Mass/Vol] 8.7 mg/dL Normal 8.5-10.5 [facility] Comment on above: Performed By: #### C BC, BMP, PHOS, MG1 #### [facility] [address] [place] [address] Chloride [Moles/Vol] 101 mmol/L Normal 98-110 [facility] Comment on above: Performed By: #### C BC, BMP, PHOS, MG1 #### [facility] [address] [place] [address] CO2 [Moles/Vol] 26 mmol/L Normal 23-32 [facility] Comment on above: Performed By: #### C BC, BMP, PHOS, MG1 #### [place] [phone] Creatinine [Mass/Vol] 0.55 mg/dL Low 0.70-1.40 [facility] Comment on above: Performed By: #### C BC, BMP, PHOS, MG1 #### [place] [phone] eGFR- Amer. >60 Normal >60 [facility] Comment on above: Performed By: #### C BC, BMP, PHOS, MG1 #### [place] [phone] eGFR-All Other Races >60 Normal >60 [facility] Comment on above: Performed By: #### C BC, BMP, PHOS, MG1 #### [place] [phone] Glucose [Mass/Vol] 80 mg/dL Normal 65-100 [facility] Comment on above: Performed By: #### C BC, BMP, PHOS, MG1 #### [place] [phone] Potassium [Moles/Vol] 4.2 mmol/L Normal 3.5-5.0 [facility] Comment on above: Performed By: #### C BC, BMP, PHOS, MG1 #### [place] [phone] Sodium [Moles/Vol] 136 mmol/L Normal 132-148 [facility] Comment on above: Performed By: #### C BC, BMP, PHOS, MG1 #### [place] [phone] Urea nitrogen [Mass/Vol] 5 mg/dL Low 8-25 [facility] Comment on above: Performed By: #### C BC, BMP, PHOS, MG1 #### [place] [phone] CBC and Differentialon 09-02 Abs Baso 0.05 k/uL Normal <0.11 [facility] Comment on above: Performed By: #### C BC, BMP, PHOS, MG1 #### [place] [phone] Abs Eosin <0.03 Normal <0.46 [facility] Comment on above: Performed By: #### C BC, BMP, PHOS, MG1 #### [place] [phone] Abs [place] 0.78 k/uL Normal <0.87 [facility] Comment on above: Performed By: #### C BC, BMP, PHOS, MG1 #### [place] [phone] Abs Neut 13.60 k/uL High 1.45-7.50 [facility] Comment on above: Performed By: #### C BC, BMP, PHOS, MG1 #### [place] [phone] Absolute nRBC <0.01 Normal <0.01 [facility] Comment on above: Performed By: #### C BC, BMP, PHOS, MG1 #### [place] [phone] Basophils/100 WBC (Bld) 0.3 % Normal [facility] Comment on above: Performed By: #### C BC, BMP, PHOS, MG1 #### [place] [phone] DTYPE Auto Diff Normal [facility] Comment on above: Performed By: #### C BC, BMP, PHOS, MG1 #### [place] [phone] Eosinophils/100 WBC (Bld) 0.1 % Normal [facility] Comment on above: Performed By: #### C BC, BMP, PHOS, MG1 #### [place] [phone] Erythrocyte distribution width (RBC) [Ratio] 14.6 % Normal 11.5-15.0 [facility] Comment on above: Performed By: #### C BC, BMP, PHOS, MG1 #### [place] [phone] Hematocrit (Bld) [Volume fraction] 32.7 % Low 36.0-46.0 [facility] Comment on above: Performed By: #### C BC, BMP, PHOS, MG1 #### [place] [phone] Hemoglobin (Bld) [Mass/Vol] 10.9 g/dL Low 11.5-15.5 [facility] Comment on above: Performed By: #### C BC, BMP, PHOS, MG1 #### [place] [phone] Lymphocytes (Bld) [#/Vol] 1.54 10*3/uL Normal 1.00-4.0 0 [facility] Comment on above: Performed By: #### C BC, BMP, PHOS, MG1 #### [place] [phone] Lymphocytes/100 WBC (Bld) 9.6 % Normal [facility] Comment on above: Performed By: #### C BC, BMP, PHOS, MG1 #### [phone] MCH 29.8 pG Normal 26.0-34.0 [facility] Comment on above: Performed By: #### C BC, BMP, PHOS, MG1 #### [phone] MCHC (RBC) [Mass/Vol] 33.3 g/dL Normal 30.5-36.0 [facility] Comment on above: Performed By: #### C BC, BMP, PHOS, MG1 #### [place] [phone] MCV (RBC) [Entitic vol] 89.3 fL Normal 80.0-100.0 [facility] Comment on above: Performed By: #### C BC, BMP, PHOS, MG1 #### [place] [address] Monocytes/100 WBC (Bld) 4.9 % Normal [facility] Comment on above: Performed By: #### C BC, BMP, PHOS, MG1 #### [place] [phone] Neutrophils/100 WBC (Bld) 85.1 % Normal [facility] Comment on above: Performed By: #### C BC, BMP, PHOS, MG1 #### [place] [phone] NRBCs 0.0 /100 WBC Normal 0 [facility] Comment on above: Performed By: #### C BC, BMP, PHOS, MG1 #### [place] [phone] Platelet mean volume (Bld) [Entitic vol] 10.2 fL Normal 9.0-12.7 [facility] Comment on above: Performed By: #### C BC, BMP, PHOS, MG1 #### [place] [address] Platelets (Bld) [#/Vol] 220 10*3/uL Normal 150-400 [facility] Comment on above: Performed By: #### C BC, BMP, PHOS, MG1 #### [place] [address] RBC (Bld) [#/Vol] 3.66 10*6/uL Low 3.90-5.20 [facility] Comment on above: Performed By: #### C BC, BMP, PHOS, MG1 #### [place] [address] WBC (Bld) [#/Vol] 15.98 10*3/uL High 3.70-11.00 [facility] Comment on above: Performed By: #### C BC, BMP, PHOS, MG1 #### [place] [id number] [place] [address] CONSULT PROGon 09-02-2020 CONSULT PROG HNO ID: [id number] Author: Haleigh Robles) Kevin Case Service: Pain [...] She is on liq diet, on fentanyl [employer] SALES CONSULTANT 0/07/21 last 4 hrs bolus utilized PDMP [...] patch to R shoulder BID 6. Dilaudid FIELD SALES CONSULTANT d/c yesterday and Fentanyl FIELD SALES CONSULTANT ordered with improved pain relief, if pain tolerating PO likely will transition FIELD SALES CONSULTANT to PO pain regimen tomorrow The plan [...] (NEURONTIN) 600 mg ORAL TID - fentaNYL FIELD SALES CONSULTANT 20 mcg/mL in NaCl 0.9% 100 mL [...] Anion Ga (more content not included)... Normal [facility] Magnesiumon 09-02-2020 Magnesium [Mass/Vol] 1.7 mg/dL Normal 1.7-2.6 [facility] Comment on above: Result Comment: Revi ewed Performed By: #### C BC, BMP, PHOS, MG1 #### [facility] [address] [place] [address] NURSING PROGon 09-02-2020 NURSING PROG HNO ID: [id number] Author: Gene Palmer (Rn) KVNG Cortez Service: ? Author Type: Registered Nurse Type: Nursing Progress Note Filed: 09/02/2020 5:02 PM Note Text: Nursing Progress Note Patient Name: [facility] Mont[id number] Daily Note:Assisted pt to the restroom and it was noted that pt's nerve blocks are leaking. Stopped infusion and text page to CHARO Ricardo to make aware. Pt ambulating w/ one assist. Lungs clear and encouraging use of incentive spirometer. Abdomen soft and tender. Bowel sounds hypoactive. Midline incision NEIGHBORHOOD PLANNER w/ glue. Pt voiding clear, yellow urine. Denies any nausea/vomiting since removal of NGT. Safety maintained. 1645: Pt tolerating CLD. No nausea/vomiting at this time. Appears to be resting comfortably sitting up in the chair. Vital signs stable. Pt rating pain 7-8/10. Encouraged use of FIELD SALES CONSULTANT pump. Safety maintained. This note was completed by: Gene Cortez RN Normal [facility] Phosphoruson 09-02-2020 Phosphate [Mass/Vol] 3.8 mg/dL Normal 2.5-4.5 [facility] Comment on above: Performed By: #### C BC, BMP, PHOS, MG1 #### [facility] [address] [place] [address] THERAPY NTon 09-02-2020 THERAPY NT HNO ID: [id number] Author: [place]inita (Pt) Jenna Service: Physical Therapy Author Type: Physical Therapist Type: Therapy (PT/OT/Speech/Resp) Filed: 09/02/2020 11:20 AM Note Text: Physical Therapy Treatment SERVICE DATE: 09/02/2020 SERVICE TIME: 947 to 1013 ROOM: [place] [address] Recommended Discharge Disposition: Home PT Anticipated Discharge [...] for Hospital Admission: Neuroendocrine Mass, refer to [facility] Relevant Past Medical History: NSTEMI, Anxiety Disorder, DM II, Smoker, Breast CA, refer to [facility] Physical Therapy Problem List: Pain;Functional Mobility Impairment;Balance [...] head/trunk Activity Tolerance: Standing Activity Standing Activity: [id number]; static standing balance; gait training with ww [...] Diagnosis: Reduced mobility-other Interventions Provided: Gait Training (04207);Therapeutic Exercise (79995) Therapeutic Exercise (83229) Treatment Minutes: 17 Supine LE exercises performed and handout of supine LE exercises provided and reviewed with the patient. Education provided on importance of exercises. Reviewed abdominal precautions with the patient. $ Therapeutic Exercise (67688) Billed Units: 1 unit Gait Training (45843) Treatment Minutes: 9 Bed mobility performed with cues provided for correct sequencing. Gait training with ww. No loss of balance. $ Gait Training (64973) Billed Units: 1 unit Total Timed Code Treatment Minutes: 26 Total Treatment Time (minutes): 26 Please see discipline specific clinical documentation flowsheet for complete details for this therapy evaluation/treatment . SIGNATURE: Araceli Dotson, SPT PATIENT NAME: Honey Montes DATE: September 02, 2020 TIME: 11:10 AM This PT was present fo (more content not included)... Normal [facility] Basic Metabolic Panlon 09-01 Anion gap [Moles/Vol] 11 mmol/L Normal - [facility] Comment on above: Performed By: #### P HOS, BMP, MG1, CBCDIF ####[facility] [place], [place] [phone] Calcium [Mass/Vol] 8.8 mg/dL Normal 8.5-10.5 [facility] Comment on above: Performed By: #### P HOS, BMP, MG1, CBCDIF ####[place] [id number] [place], [place] [phone] Chloride [Moles/Vol] 99 mmol/L Normal 98-110 [facility] Comment on above: Performed By: #### P HOS, BMP, MG1, CBCDIF ####[address] [phone] CO2 [Moles/Vol] 24 mmol/L Normal 23-32 [facility] Comment on above: Performed By: #### P HOS, BMP, MG1, CBCDIF ####[place] [phone] Creatinine [Mass/Vol] 0.47 mg/dL Low 0.70-1.40 [facility] Comment on above: Performed By: #### P HOS, BMP, MG1, CBCDIF ####[place] [phone] eGFR- Amer. >60 Normal >60 [facility] Comment on above: Performed By: #### P HOS, BMP, MG1, CBCDIF ####[place] [phone] eGFR-All Other Races >60 Normal >60 [facility] Comment on above: Performed By: #### P HOS, BMP, MG1, CBCDIF ####[place] [phone] Glucose [Mass/Vol] 152 mg/dL High 65-100 [facility] Comment on above: Performed By: #### P HOS, BMP, MG1, CBCDIF ####[place] [phone] Potassium [Moles/Vol] 3.7 mmol/L Normal 3.5-5.0 [facility] Comment on above: Performed By: #### P HOS, BMP, MG1, CBCDIF ####[place] [phone] Sodium [Moles/Vol] 134 mmol/L Normal 132-148 [facility] Comment on above: Performed By: #### P HOS, BMP, MG1, CBCDIF ####[place] [phone] Urea nitrogen [Mass/Vol] 7 mg/dL Low 8-25 [facility] Comment on above: Performed By: #### P HOS, BMP, MG1, CBCDIF ####[facility] [place], [place] [phone] CASE MGT INIT Rodger 2019 CASE MGT INIT ROSAMARIA HNO ID: [id number] Author: Víctor Hadley (Rn) KVNG Cyr Service: ? Author Type: Registered Nurse Type: Care Mgt Initial Assessment Filed: 09/01/2020 1:36 PM Note Text: CARE MANAGEMENT: ASSESSMENT AND DISCHARGE PLAN SERVICE DATE: September 01, 2020 SERVICE TIME: 1:30 PM PRIMARY CARE PHYSICIAN: Pt lorena Cook MD----[phone] ADMISSION STATUS: Inpatient Needs Prior to Discharge: Home Care Order MEDICAL: [facility] Patient/Representati ve Stated Goals: To have reduction in symptoms;To improve my functional status;To have reduction in pain;To return home to life as it was Health Insurance: [place];Mica sanchez([facility]) Health Issues Impacting Discharge Plan: Newly diagnosed 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 Last discharge within 30 days: No Advance Directive: Current Advance Directive: Health Care Power of Community Marketing Manager;Living Will In Chart: No Shot Tube Machine Tender Attempted to Assist with AD Completion: Yes [...] Mostly I feel financially burdened by my wed-pi-[id number] expenses for my prescription medication:: 0 - [...] Psychosocial Needs: None FREEDOM OF CHOICE EXPLAINED: [place] of Choice Given: Yes Level of Care Discussed: Home Care Financial Disclosure Provided: Yes Financial Disclosure Comments: careport Provider List: Home Care Provider list within the patient's requested geographic area shared with the patient/family: Yes within: [place] miles of [facility] code: [address] Quality and resource use metrics shared with [...] long as they are in-network with insurance. [facility] can accept but will need HC order to follow through. CM to follow for needs. SIGNATURE: Víctor Cyr RN PATIENT NAME: Honey Montes DATE: September 01, 2020 (more content not included)... Normal [facility] CBC and Differentialon 09-01 Abs Baso 0.00 k/uL Normal <0.11 [facility] Comment on above: Performed By: #### C MP, MG1, PHOS, CBCDIF ####[address] Abs [place] 0.63 k/uL Normal <0.87 [facility] Comment on above: Performed By: #### C MP, MG1, PHOS, CBCDIF ####[place] [phone] Abs Neut 19.45 k/uL High 1.45-7.50 [facility] Comment on above: Performed By: #### C MP, MG1, PHOS, CBCDIF ####[place] [phone] ANC(includeSEG+BAND) 19.45 k/uL Normal [facility] Comment on above: Performed By: #### C MP, MG1, PHOS, CBCDIF ####[place] [phone] Basophils/100 WBC (Bld) 0.0 % Normal [facility] Comment on above: Performed By: #### C MP, MG1, PHOS, CBCDIF ####[place] [phone] DTYPE Manual Diff Normal [facility] Comment on above: Performed By: #### C MP, MG1, PHOS, CBCDIF ####[place] [phone] Eosinophils (Bld) [#/Vol] 0.00 10*3/uL Normal <0.46 [facility] Comment on above: Performed By: #### C MP, MG1, PHOS, CBCDIF ####[place] [address] Eosinophils/100 WBC (Bld) 0.0 % Normal [facility] Comment on above: Performed By: #### C MP, MG1, PHOS, CBCDIF ####[place] [address] Erythrocyte distribution width (RBC) [Ratio] 14.4 % Normal 11.5-15.0 [facility] Comment on above: Performed By: #### C MP, MG1, PHOS, CBCDIF ####[place] [address] Hematocrit (Bld) [Volume fraction] 34.6 % Low 36.0-46.0 [facility] Comment on above: Performed By: #### C MP, MG1, PHOS, CBCDIF ####[place] [address] Hemoglobin (Bld) [Mass/Vol] 11.5 g/dL Normal 11.5-15.5 [facility] Comment on above: Performed By: #### C MP, MG1, PHOS, CBCDIF ####[place] [address] Left Shift Present Normal [facility] Comment on above: Performed By: #### C MP, MG1, PHOS, CBCDIF ####[place] [address] Lymphocytes (Bld) [#/Vol] 0.85 10*3/uL Low 1.00-4.0 0 [facility] Comment on above: Performed By: #### C MP, MG1, PHOS, CBCDIF ####[place] [phone] Lymphocytes/100 WBC (Bld) 4.0 % Normal [facility] Comment on above: Performed By: #### C MP, MG1, PHOS, CBCDIF ####[place] [phone] MCH 29.8 pG Normal 26.0-34.0 [facility] Comment on above: Performed By: #### C MP, MG1, PHOS, CBCDIF ####[place] [phone] MCHC (RBC) [Mass/Vol] 33.2 g/dL Normal 30.5-36.0 [facility] Comment on above: Performed By: #### C MP, MG1, PHOS, CBCDIF ####[place] [phone] MCV (RBC) [Entitic vol] 89.6 fL Normal 80.0-100.0 [facility] Comment on above: Performed By: #### C MP, MG1, PHOS, CBCDIF ####[place] [phone] Metamyelocytes/100 WBC (Bld) 1.0 % Normal [facility] Comment on above: Performed By: #### C MP, MG1, PHOS, CBCDIF ####[place] [phone] Monocytes/100 WBC (Bld) 3.0 % Normal [facility] Comment on above: Performed By: #### C MP, MG1, PHOS, CBCDIF ####[place] [phone] Neutrophils/100 WBC (Bld) 92.0 % Normal [facility] Comment on above: Performed By: #### C MP, MG1, PHOS, CBCDIF ####[place] [phone] Platelet Estimate Platelet estimate adequate Normal [facility] Comment on above: Performed By: #### C MP, MG1, PHOS, CBCDIF ####[place] [phone] Platelet mean volume (Bld) [Entitic vol] 9.7 fL Normal 9.0-12.7 [facility] Comment on above: Performed By: #### C MP, MG1, PHOS, CBCDIF ####[place] [phone] Platelets (Bld) [#/Vol] 245 10*3/uL Normal 150-400 [facility] Comment on above: Performed By: #### C MP, MG1, PHOS, CBCDIF ####[place] [address] RBC (Bld) [#/Vol] 3.86 10*6/uL Low 3.90-5.20 [facility] Comment on above: Performed By: #### C MP, MG1, PHOS, CBCDIF ####[place] [address] Red Cell Morph SEE COMMENT Normal [facility] Comment on above: Result Comment: Unre markable Performed By: #### C MP, MG1, PHOS, CBCDIF ####[place] [address] WBC (Bld) [#/Vol] 21.14 10*3/uL High 3.70-11.00 [facility] Comment on above: Performed By: #### C MP, MG1, PHOS, CBCDIF ####[place] [address] Abs Baso 0.00 k/uL Normal <0.11 [facility] Comment on above: Performed By: #### C BC, BMP, PHOS, MG1 #### [place] [id number] Abs [place] 0.89 k/uL High <0.87 [facility] Comment on above: Performed By: #### C BC, BMP, PHOS, MG1 #### [place] [phone] Abs Neut 15.70 k/uL High 1.45-7.50 [facility] Comment on above: Performed By: #### C BC, BMP, PHOS, MG1 #### [place] [phone] ANC(includeSEG+BAND) 15.70 k/uL Normal [facility] Comment on above: Performed By: #### C BC, BMP, PHOS, MG1 #### [place] [phone] Basophils/100 WBC (Bld) 0.0 % Normal [facility] Comment on above: Performed By: #### C BC, BMP, PHOS, MG1 #### [place] [phone] DTYPE Manual Diff Normal [facility] Comment on above: Performed By: #### C BC, BMP, PHOS, MG1 #### [place] [phone] Eosinophils (Bld) [#/Vol] 0.00 10*3/uL Normal <0.46 [facility] Comment on above: Performed By: #### C BC, BMP, PHOS, MG1 #### [place] [phone] Eosinophils/100 WBC (Bld) 0.0 % Normal [facility] Comment on above: Performed By: #### C BC, BMP, PHOS, MG1 #### [place] [phone] Erythrocyte distribution width (RBC) [Ratio] 14.6 % Normal 11.5-15.0 [facility] Comment on above: Performed By: #### C BC, BMP, PHOS, MG1 #### [place] [phone] Hematocrit (Bld) [Volume fraction] 41.6 % Normal 36.0-46.0 [facility] Comment on above: Performed By: #### C BC, BMP, PHOS, MG1 #### [place] [phone] Hemoglobin (Bld) [Mass/Vol] 13.4 g/dL Normal 11.5-15.5 [facility] Comment on above: Performed By: #### C BC, BMP, PHOS, MG1 #### [phone] Lymphocytes (Bld) [#/Vol] 1.25 10*3/uL Normal 1.00-4.0 0 [facility] Comment on above: Performed By: #### C BC, BMP, PHOS, MG1 #### [phone] Lymphocytes/100 WBC (Bld) 7.0 % Normal [facility] Comment on above: Performed By: #### C BC, BMP, PHOS, MG1 #### [place] [phone] MCH 29.8 pG Normal 26.0-34.0 [facility] Comment on above: Performed By: #### C BC, BMP, PHOS, MG1 #### [place] [phone] MCHC (RBC) [Mass/Vol] 32.2 g/dL Normal 30.5-36.0 [facility] Comment on above: Performed By: #### C BC, BMP, PHOS, MG1 #### [place] [phone] MCV (RBC) [Entitic vol] 92.7 fL Normal 80.0-100.0 [facility] Comment on above: Performed By: #### C BC, BMP, PHOS, MG1 #### [phone] Monocytes/100 WBC (Bld) 5.0 % Normal [facility] Comment on above: Performed By: #### C BC, BMP, PHOS, MG1 #### [phone] Neutrophils/100 WBC (Bld) 88.0 % Normal [facility] Comment on above: Performed By: #### C BC, BMP, PHOS, MG1 #### [place] [phone] Platelet Estimate Platelet estimate adequate Normal [facility] Comment on above: Performed By: #### C BC, BMP, PHOS, MG1 #### [place] [phone] Platelet mean volume (Bld) [Entitic vol] 9.9 fL Normal 9.0-12.7 [facility] Comment on above: Performed By: #### C BC, BMP, PHOS, MG1 #### [place] [phone] Platelets (Bld) [#/Vol] 234 10*3/uL Normal 150-400 [facility] Comment on above: Performed By: #### C BC, BMP, PHOS, MG1 #### [place] [phone] RBC (Bld) [#/Vol] 4.49 10*6/uL Normal 3.90-5.20 [facility] Comment on above: Performed By: #### C BC, BMP, PHOS, MG1 #### [place] [phone] Red Cell Morph SEE COMMENT Normal [facility] Comment on above: Result Comment: Unre markable Performed By: #### C BC, BMP, PHOS, MG1 #### [place] [phone] WBC (Bld) [#/Vol] 17.84 10*3/uL High 3.70-11.00 [facility] Comment on above: Performed By: #### C BC, BMP, PHOS, MG1 #### [place] [phone] CONSULT PROGon 09-01-2020 CONSULT PROG HNO ID: [id number] Author: Haleigh Case Service: Pain Management Author [...] warmth. NPO - NG in place, Dilaudid FIELD SALES CONSULTANT ordered this morning by primary team PDMP website checked and validated. Total Rx 93, from 11 prescribers, from 10 pharmacies 09/01/2020 by Haleigh Case APRN.HEALTH INFORMATION TECH PLAN/Recs: 1. Increased PV X 2 to 0/8/30/2 2. Continue Acetaminophen 650 mg PO Q 6 h 3. Added Flector patch to R shoulder BID 4. Dilaudid FIELD SALES CONSULTANT 0/0.2/10/6 for now will transition to oral [...] mg ORAL q 6 H - HYDROmorphone FIELD SALES CONSULTANT 0.5 mg/mL in NaCl 0.9% 100 mL [...] Lymph 1.00 - 4.00 k/uL 0.85 (L) [place]% % 3.0 Abs [place] <0.87 k/uL 0.63 [place]% % 0.0 Abs [...] 3.2 (L) (more content not included)... Normal [facility] Comp Metabolic Panelon 09-01 Albumin [Mass/Vol] 3.2 g/dL Low 3.5-5.0 [facility] Comment on above: Performed By: #### C MP, MG1, PHOS, CBCDIF ####[facility] [place], [place] [phone] ALP [Catalytic activity/Vol] 39 U/L Normal 34-123 [facility] Comment on above: Performed By: #### C MP, MG1, PHOS, CBCDIF ####[facility] [place], [place] [phone] ALT [Catalytic activity/Vol] 15 U/L Normal 0-45 [facility] Comment on above: Performed By: #### C MP, MG1, PHOS, CBCDIF ####[facility] [place], [place] [phone] Anion gap [Moles/Vol] 12 mmol/L Normal 9-18 [facility] Comment on above: Performed By: #### C MP, MG1, PHOS, CBCDIF ####[place] [phone] AST [Catalytic activity/Vol] 23 U/L Normal 7-40 [facility] Comment on above: Performed By: #### C MP, MG1, PHOS, CBCDIF ####[place] [phone] Bilirubin [Mass/Vol] 0.4 mg/dL Normal 0.2-1.3 [facility] Comment on above: Performed By: #### C MP, MG1, PHOS, CBCDIF ####[place] [phone] Calcium [Mass/Vol] 8.9 mg/dL Normal 8.5-10.5 [facility] Comment on above: Performed By: #### C MP, MG1, PHOS, CBCDIF ####[place] [phone] Chloride [Moles/Vol] 105 mmol/L Normal 98-110 [facility] Comment on above: Result Comment: Revi ewed Performed By: #### C MP, MG1, PHOS, CBCDIF ####[place] [phone] CO2 [Moles/Vol] 23 mmol/L Normal 23-32 [facility] Comment on above: Performed By: #### C MP, MG1, PHOS, CBCDIF ####[place] [phone] Creatinine [Mass/Vol] 0.55 mg/dL Low 0.70-1.40 [facility] Comment on above: Performed By: #### C MP, MG1, PHOS, CBCDIF ####[place] [phone] eGFR- Amer. >60 Normal >60 [facility] Comment on above: Performed By: #### C MP, MG1, PHOS, CBCDIF ####[place] [phone] eGFR-All Other Races >60 Normal >60 [facility] Comment on above: Performed By: #### C MP, MG1, PHOS, CBCDIF ####[place] [phone] Glucose [Mass/Vol] 153 mg/dL High 65-100 [facility] Comment on above: Performed By: #### C MP, MG1, PHOS, CBCDIF ####[place] [phone] Potassium [Moles/Vol] 4.1 mmol/L Normal 3.5-5.0 [facility] Comment on above: Performed By: #### C MP, MG1, PHOS, CBCDIF ####[place] [phone] Protein [Mass/Vol] 5.1 g/dL Low 6.0-8.4 [facility] Comment on above: Performed By: #### C MP, MG1, PHOS, CBCDIF ####[place] [phone] Sodium [Moles/Vol] 140 mmol/L Normal 132-148 [facility] Comment on above: Performed By: #### C MP, MG1, PHOS, CBCDIF ####[place] [phone] Urea nitrogen [Mass/Vol] 8 mg/dL Normal 8-25 [facility] Comment on above: Performed By: #### C MP, MG1, PHOS, CBCDIF ####[place] [phone] Magnesiumon 09-01-2020 Magnesium [Mass/Vol] 1.2 mg/dL Low 1.7-2.6 [facility] Comment on above: Performed By: #### C MP, MG1, PHOS, CBCDIF ####[facility] [place], [place] [phone] Magnesium [Mass/Vol] 1.2 mg/dL Low 1.7-2.6 [facility] Comment on above: Performed By: #### C BC, BMP, PHOS, MG1 #### [facility] [address] [place] [address] NURSING PROGon 09-01-2020 NURSING PROG HNO ID: [id number] Author: Torrie (Rn) Kaitlyn, RN Service: Nursing Author Type: Registered Nurse Type: Nursing Progress Note Filed: 09/01/2020 6:22 PM Note Text: Nursing Progress Note Patient Name: Honey Montes Patient Location: [place] [id number] Daily Note: 0800: Pt c/o 10/10 abdominal pain, resps shallow AND pt speaking softly. Medicated w/ dilaudid 0.2 mg IVP. Bilat PVT blocks maintained AND settings verified. Pt assisted x 1 to chair. Abdomen soft AND tender, BS normoactive. NGT maintained to [facility], no drainage at present time. 0850: Pain reassessed AND pt reports no decrease in pain level 10/10. Dilaudid IV/FIELD SALES CONSULTANT infusion started; pt AND daughter Mary educated on pump settings AND use, voiced understanding. PVT blocks x2 increased to 8mL O90alxx per new orders from KAT Ricrado. 0950: Pt reports pain level 10/10. Pt observed talking on phone, no grimacing noted. VSS. 1028: Lido patch x2 applied to both sides of abdomen; pt educated on medication. 1122: Pt medicated w/ tylenol, PRN xanax, AND flector patch applied to R shoulder (chronic pain); pt appears comfortable. 1430: Fentanyl 25 mcg IVP administered per EMAR. Dilaudid FIELD SALES CONSULTANT button on hold x 30 mins per recommendation from pain mgmt (KAT Ricardo). Fresh ice pack applied to abdomen. 1500: Pt reports 8/10 pain level after fentanyl 25 mcg. FIELD SALES CONSULTANT use encouraged. Daughter to bedside AND updated on pt status. 164: Pt tearful, requesting xanax AND states her pain is worse then previous. Paged AND spoke to KAT Ricardo (pain mgmt) and advised to page surgery to see pt, inquiring if dilaudid FIELD SALES CONSULTANT should be changed to fentanyl FIELD SALES CONSULTANT. 1744: Bedside rounds w/ Dr Sinha. Dilaudid FIELD SALES CONSULTANT changed to Fentanyl FIELD SALES CONSULTANT. Pt AND daughter agreeable to POC. 1818: Pt reports pain 8/10 but states is much better after switching to Fentanyl FIELD SALES CONSULTANT. This note was completed by: Torrie Sahni RN [facility] NURSING PROG HNO ID: [id number] Author: Nayeli (Kvng) KVNG Bennett Service: ? Author Type: Registered Nurse Type: Nursing Progress Note Filed: 09/01/2020 3:12 AM Note Text: Nursing Progress Note Patient Name: Honey Montes Patient Location: -PK3A01/-RI0L-12 Daily Note:Pt is in the room resting.She [...] was completed by: Nayeli Bennett RN Normal [facility] Phosphoruson 09-01-2020 Phosphate [Mass/Vol] 4.9 mg/dL High 2.5-4.5 [facility] Comment on above: Performed By: #### C MP, MG1, PHOS, CBCDIF ####[facility] [place], [place] [phone] Phosphate [Mass/Vol] 4.8 mg/dL High 2.5-4.5 [facility] Comment on above: Performed By: #### C BC, BMP, PHOS, MG1 #### [facility] [address] [place] [address] THERAPY NTon 09-01-2020 THERAPY NT HNO ID: [id number] Author: Vinita (Pt) Jenna Service: Physical Therapy Author Type: Physical Therapist Type: Therapy (PT/OT/Speech/Resp) Filed: 09/01/2020 2:06 PM Note Text: Physical Therapy Evaluation SERVICE DATE: 09/01/2020 SERVICE TIME: 1012 to 1051 ROOM: [place] [address] Recommended Discharge Disposition: Home PT Anticipated Discharge Needs: Physical Assist at Home Physical Assist at Home for: Cleaning;Laundry;Ellyn ls;Shopping;Transpor tation Recommended Discharge Equipment: Wheeled Walker PT 6 Clicks Score: 18 Precautions/Activity Restrictions: Abdominal;Bed/Chair Alarm;Fall Risk;Lines/Tubes/Nataly ins Precaution/Activity Restriction Comments: abdominal precautions Current Hospital Course: Neuroendocrine Mass, S/P Exp lap, Excision Mass, resection Of JJ, Creation New JJ, Lilia, Refer to [facility] Reason for Hospital Admission: Neuroendocrine Mass, refer to [facility] Relevant Past Medical History: NSTEMI, Anxiety Disorder, DM II, Smoker, Breast CA, refer to [facility] Physical Therapy Problem List: Pain;Safety Deficits;Decreased Activity [...] head/trunk Activity Tolerance: Standing Activity Standing Activity: gpz-gk-mbnfr; gait training with ww Standing Activity Tolerance [...] living (ADL);Reduced mobility-other Interventions Provided: Gait Training (18068);Therapeutic Exercise (45394);Evaluation $ Evaluation-Low (83498) Billed Units: 1 unit Therapeutic Exercise (49293) Treatment Minutes: 15 Seated LE exercises performed with verbal and tactile cues given to achieve correct performance of exercises. Education provided on importance of exercises and in-hospital mobility. Education provided on abdominal precautions. $ Therapeutic Exercise (19340) Billed Units: 1 unit Gait Training (19567) Treatment Minutes: 9 Tpo-og-ejeri transfer with verbal cues given to push from the chair for safety. Gait training with ww. No loss of balance. Verbal cues provided to maintain correct distance from ww for safety. $ Gait Training (11038) Billed Units: 1 unit Total Timed Code Treatment Minutes: 24 Total Treatment Time (minutes): 39 Please see discipline specific clinical documentation flowsheet for complete de (more content not included)... Normal [facility] THERAPY NT HNO ID: [id number] Author: Windy (Ot) Gabriela Service: Occupational Therapy Author Type: Occupational Therapist Type: Therapy (PT/OT/Speech/Resp) Filed: 09/01/2020 9:17 AM Note Text: Occupational Therapy Evaluation SERVICE DATE: 09/01/2020 SERVICE TIME: 749 ROOM: [place] [address] Neuroendocrine Tumor, S/P Exploratory Laparotomy, Excision Of [...] Bars-Shower;Grab Bars-Toilet;Hand Held Shower;Long Handled Shoe Horn;Wheeled Walker;Glue Sprayer;Sock Aid;Shower Chair OT 6 Clicks Score: 14 [...] With: Spouse;Other: See Comment(one level home in [place], [place]) Assistance Available: PRN;Other: See Comment(two children [...] Assistance Uppe (more content not included)... Normal [facility] ANES POSTPROC EVALon 020 ANES POSTPROC EVAL HNO ID: [id number] Author: Kehinde Partida Service: ? Author Type: [...] SIGNATURE: Kehinde Partida MD PATIENT NAME: Honey Montse DATE: August 31, 2020 TIME: 8:15 PM CSN: [id number] [facility] ANES PRE-OPon 08-31-2020 ANES PRE-OP HNO ID: [id number] Author: Angelina Dumas Service: ? Author Type: [...] Problems CARDIO (+) Atherosclerotic heart disease of [place] coronary artery without angina pectoris (+) Essential [...] August 31, 2020 TIME: 10:02 AM CSN: [id number] [facility] BRIEF OP NOTon 08-31-2020 BRIEF OP NOT HNO ID: [id number] Author: Faith Tirado Service: General Surgery Author Type: Resident Type: Brief Op Note Filed: 08/31/2020 7:31 PM Note Text: BRIEF OPERATIVE / PROCEDURE NOTE LOG ID: [id number] SURGERY/PROCEDURE DATE: 08/31/2020 INCISION/PROCEDURE START TIME: 2:48 PM INCISION CLOSE/PROCEDURE END TIME: 7:15 PM SURGEON(S)/PROCEDURA LIST(S) AND DIRECTOR COUNSELING BUREAU(S): Surgeon(s) and Role: * Jr Sinha - [...] 31, 2020 TIME: 7:28 PM PAGER/CONTACT #: [phone] [facility] HISTORY PHYSICALon 0 HISTORY PHYSICAL HNO ID: [id number] Author: Faith Tirado Service: General Surgery Author [...] August 31, 2020 TIME: 1:48 PM PAGER: [phone] [facility] NURSING PROGon 08-31-2020 NURSING PROG HNO ID: [id number] Author: Nicolette (Rn) KVNG Washburn Service: Nursing Author Type: Registered Nurse Type: Nursing Progress Note Filed: 08/31/2020 9:42 AM Note Text: PATIENT EDUCATION TOPIC: PROCEDURE / SURGERY: Pre-op Teaching: Protocols PATIENT NAME: Honey Montes PAT[place]ATION: [place] READ[place] TO LEARN COGNITIVE ABILITY: Alert and [...] None Electronically Signed By: Nicolette Wash[place] RN [facility] OPERATIVE NOon 08-31-2020 OPERATIVE NO HNO ID: [id number] Author: Jr Sinha Service: General Surgery Author Type: Physician Type: Operative Report Filed: 09/04/2020 1:51 PM Note Text: [facility] - Operative Report HONEY MONTES : 1960 AGE: 60. SEX: F PATIENT TYPE: I HOSP SVC: GENS LOCATION: [facility] ATTENDING PHYSICIAN: Jr Sinha MD CSN NUMBER: [id number] DATE OF SURGERY/PROCEDURE: 08/31/2020 INCISION/PROCEDURE START TIME: 2:48 PM INCISION CLOSE/PROCEDURE END TIME: 7:15 PM PREOPERATIVE DIAGNOSIS: Neuroendocrine mass, root of mesentery. POSTOPERATIVE DIAGNOSIS: Neuroendocrine mass, root of mesentery. SURGEON: Jr Sinha MD DIRECTOR COUNSELING BUREAU: Faith Tirado. SURGERY/PROCEDURE: 1. Exploratory laparotomy, lysis of adhesions, resection of proximal jejunum and partial resection of D4 with resection of mesenteric mass right next to the SMA. 2. End-to-side duodenojejunostomy. 3. Mhbz-gh-kkej jejunojejunostomy. 4. Resection of the jejunojejunostomy. 5. Cholecystectomy. ANESTHESIA: General endotracheal anesthesia. COMPLICATIONS: None. ESTIMATED BLOOD LOSS: 300 mL. SPECIMENS: 1. Jejunojejunostomy. 2. Proximal jejunum and D4. 3. Cholecystectomy. 4. Mesenteric mass. WOUND CLASS: 2. INDICATION: Patient is a pleasant female, who had a recent expiration in [place] for a perforated gastric ulcer. She underwent [...] anastomosis was (more content not included)... Normal [facility] SURGICAL PATHOLOGYon 020 SURGICAL PATHOLOGY Specimen originated from [facility] Specimen #: [id number] Submitting Physician: JR SINHA MD FINAL DIAGNOSIS [...] in-situ hybridization tests have been determined by [facility] Medicine [place] ([facility]) in a manner consistent with CLIA requirements. One or more of these tests have not been cleared or approved by the FDA. [facility] is regulated under CLIA as qualified to [...] with a wall thickness of 0.1 cm. Certified Home Health Aide sections are submitted in one cassette. B. [...] cm. No masses or lesions are identified. Certified Home Health Aide sections are submitted as follows: B1 staple [...] reveals cano-white, homogeneous and smooth cut surfaces. Certified Home Health Aide sections C1-C3 promotional representative sections, C4-C9 remaining specimen. D. Received in formalin designated proximal jejunum is an unoriented segment of small bowel that measures 10 cm in length and 7.5 cm in circumference. The serosal surface is slightly dusky. The bowel is opened to reveal dusky mucosa showing normal mucosal folds with a wall thickness of 1 cm. Certified Home Health Aide sections are submitted as follows: D1 margin 1 perpendicular inked orange, D2 margin 2 perpendicular inked blue, D3 small bowel, D4 entire mesenteric fat, D5-D30 remainder of specimen submitted from the orange to the blue inked margin as follows: D5-D11 orange margin to 2 cm, D12-D18 2 -4 cm, D19-D28 4-6 cm, D29-D32 6-8 cm, D (more content not included)... Normal [facility] Confirm Blood Typeon ABO/RH(D) Positive [facility] Comment on above: Performed By: #### C BC, BMP, PHOS, MG1 #### [place] [phone] Type and SCR (30D)on ABO/RH(D) Positive [facility] Comment on above: Performed By: #### C BC, BMP, PHOS, MG1 #### [place] [phone] HOSPon 08-10-2020 HOSP Patient:Honey Montes MRN: Height:5' [...] disorder, unspecified [F41.9] Atherosclerotic heart disease of [place] coronary artery without angina pectoris [I25.10] Gastrointestinal hemorrhage, unspecified [K92.2] snf (current) use of antithrombotics/anti platelets [Z79.02] Cigarette [...] 37.6 % 08/28/2020 46.0 36.0 Progress Notes ([address]): Angela Mccarthy RN 08/28/2020 3:29 PM [...] RN In Department: GENERAL SURGERY Progress Notes ([facility]): Jr Sinha MD 08/28/2020 5:16 PM Signed SURGERY PREOPERATIVE VISIT NOTE Name: Honey Montes Medical Record: [id number] Encounter No.: [id number] Honey Montes is a 60 year old [...] Packs/day: 1.00 (more content not included)... Normal [facility] Vital Signs Date Time Vital Sign Value Performing Clinician Janae loya 10-21-2023 07:00-0500 Body temperature 98.2 [degF] [facility]ok [facility] 10-21-2023 07:00-0500 Diastolic blood pressure 58 mm[Hg] Tyree Crook MD Work Phone: [facility] [employer] [facility] 10-21-2023 07:00-0500 Heart rate 54 /min Tyree Crook MD Work Phone: [facility] 10-21-2023 07:00-0500 Respiratory rate 16 /min Tyree Crook MD Work Phone: [facility] 10-21-2023 07:00-0500 SaO2% (BldA) [Mass fraction] 94 % Tyree Crook MD Work Phone: [facility] 10-21-2023 07:00-0500 Systolic blood pressure 112 mm[Hg] Tyree Crook MD Work Phone: [facility] 10-21-2023 04:29-0500 Body mass index (BMI) [Ratio] 21.86 kg/m2 Tyree Crook MD Work Phone: [facility] 10-21-2023 04:29-0500 Body weight 57.8 kg Tyree Crook MD Work Phone: [facility] 10-20-2023 00:32-0500 Body height 162.6 cm Tyree Crook MD Work Phone: [facility] 07-11-2023 10:08-0400 Body temperature 97.39 [degF] Rosana Mchugh MD Work Phone: [facility] 07-11-2023 10:08-0400 Body weight 53.98 kg Rosana Mchugh MD Work Phone: [facility] 07-11-2023 10:08-0400 Diastolic blood pressure 55 mm[Hg] Rosana Mchugh MD Work Phone: [facility] 07-11-2023 10:08-0400 Heart rate 75 /min Rosana Mchugh MD Work Phone: [facility] 07-11-2023 10:08-0400 SaO2% (BldA) [Mass fraction] 98 % Rosana Mchugh MD Work Phone: [facility] 07-11-2023 10:08-0400 Systolic blood pressure 98 mm[Hg] Rosana Mchugh MD Work Phone: [facility] 06-15-2023 13:50-0400 Body height 162.6 cm Jr Sinha MD Work Phone: [facility] 06-15-2023 13:50-0400 Body temperature 97.7 [degF] Jr Sinha MD Work Phone: [facility] 06-15-2023 13:50-0400 Body weight 52.62 kg Jr Sinha MD Work Phone: [facility] 06-15-2023 13:50-0400 Diastolic blood pressure 64 mm[Hg] Jr Sinha MD Work Phone: [facility] 06-15-2023 13:50-0400 Heart rate 75 /min Jr Sinha MD Work Phone: [facility] 06-15-2023 13:50-0400 SaO2% (BldA) [Mass fraction] 100 % Jr Sinha MD Work Phone: [facility] 06-15-2023 13:50-0400 Systolic blood pressure 97 mm[Hg] Jr Sinha MD Work Phone: [facility] 06-15-2022 12:19-0400 Body height 165.1 cm Owen Lin MD Work Phone: [facility] [employer] [facility] 06-15-2022 11:00-0400 Heart rate 80 /min Owen Lin MD Work Phone: [facility] [employer] [facility] 06-15-2022 11:00-0400 Respiratory rate 17 /min Owen Lin MD Work Phone: [facility] 06-15-2022 10:30-0400 Body temperature 98.29 [degF] Owen Lin MD Work Phone: [facility] [employer] 06-15-2022 10:30-0400 Diastolic blood pressure 63 mm[Hg] Owen Lin MD Work Phone: [facility] [employer] 06-15-2022 10:30-0400 SaO2% (BldA) [Mass fraction] 98 % Owen Lin MD Work Phone: [facility] [employer] 06-15-2022 10:30-0400 Systolic blood pressure 106 mm[Hg] Owen Lin MD Work Phone: [facility] [employer] 06-15-2022 06:00-0400 Body mass index (BMI) [Ratio] 17.54 kg/m2 Owen Lin MD Work Phone: [facility] [employer] 06-15-2022 06:00-0400 Body weight 47.8 kg Owen Lin MD Work Phone: [facility] [employer] 06-11-2022 07:53-0400 Heart rate 56 /min Viktor Otto MD Work Phone: [facility] [employer] 06-11-2022 07:07-0400 Body temperature 97.2 [degF] Viktor Otto MD Work Phone: [facility] [employer] 06-11-2022 07:07-0400 Diastolic blood pressure 62 mm[Hg] Viktor Otto MD Work Phone: [facility] [employer] 06-11-2022 07:07-0400 Respiratory rate 16 /min Viktor Otto MD Work Phone: [facility] [employer] 06-11-2022 07:07-0400 SaO2% (BldA) [Mass fraction] 98 % Viktor Otto MD Work Phone: [facility] [employer] 06-11-2022 07:07-0400 Systolic blood pressure 122 mm[Hg] Viktor Otto MD Work Phone: [facility] [employer] 06-11-2022 02:45-0400 Body height 165.1 cm Viktor Otto MD Work Phone: [facility] 06-11-2022 02:45-0400 Body mass index (BMI) [Ratio] 18.39 kg/m2 Viktor Otto MD Work Phone: [facility] [employer] [facility] 06-11-2022 02:45-0400 Body weight 50.12 kg Viktor Otto MD Work Phone: [facility] 04-28-2022 14:01-0400 Body height 165.1 cm Jr Sinha MD Work Phone: [facility] 04-28-2022 14:01-0400 Body temperature 97 [degF] Jr Sinha MD Work Phone: [facility] 04-28-2022 14:01-0400 Body weight 47.63 kg Jr Sinha MD Work Phone: [facility] 04-28-2022 14:01-0400 Diastolic blood pressure 52 mm[Hg] Jr Sinha MD Work Phone: [facility] 04-28-2022 14:01-0400 Heart rate 75 /min Jr Sinha MD Work Phone: [facility] 04-28-2022 14:01-0400 SaO2% (BldA) [Mass fraction] 100 % Jr Sinha MD Work Phone: [facility] 04-28-2022 14:01-0400 Systolic blood pressure 119 mm[Hg] Jr Sinha MD Work Phone: [facility] 04-26-2022 00:14-0400 Diastolic blood pressure 55 mm[Hg] Margarito Gonsales MD Work Phone: [facility] 04-26-2022 00:14-0400 Heart rate 63 /min Margarito Gonsales MD Work Phone: [facility] [employer] 04-26-2022 00:14-0400 Respiratory rate 12 /min Margarito Gonsales MD Work Phone: [facility] 04-26-2022 00:14-0400 SaO2% (BldA) [Mass fraction] 99 % Margarito Gonsales MD Work Phone: [facility] 04-26-2022 00:14-0400 Systolic blood pressure 117 mm[Hg] Margarito Gonsales MD Work Phone: [facility] 04-25-2022 20:34-0400 Body temperature 98.1 [degF] Margarito Gonsales MD Work Phone: [facility] Encounters Encounter Date Encounter Type Care Provider Facility Start: 10-19-2023 End: 10-22-2023 Emergency department patient visit RICCI Mcgovern [facility] Start: 10-19-2023 End: 10-21-2023 Evaluation and management of inpatient [facility] Start: 10-19-2023 End: 10-21-2023 Evaluation and management of inpatient Tomy Gomez MD Work Phone: [facility] Comment on above: COVID-19 (Primary Dx ); Generalized weakness; Hypokalemia Start: 10-18-2023 End: 10-19-2023 Emergency department patient visit RAGHAVENDRA NEGRETE [facility] Start: 10-18-2023 End: 10-18-2023 Emergency department patient visit CORINA A [facility] Start: 10-02-2023 End: 10-02-2023 ambulatory CORINA A [facility] Start: 08-25-2023 ambulatory CORINA EUGENIO [facility] lity:[facility] Start: 07-11-2023 Telephone encounter Rosana chaidez MD Work Phone: General Surgery Start: 07-11-2023 End: 07-11-2023 ambulatory TOMS SINHA Facility:[facility] Start: 07-11-2023 End: 07-11-2023 Patient encounter procedure Rosana Mchugh MD Work Phone: Gastroenterology Comment on above: Abdominal distension (Primary Dx); History of partial gastrectomy; Gastric ulcer with perforation, unspecified chronicity (HCC); Hx of cholecystectomy; Narcotic bowel syndrome (HCC) Start: 06-26-2023 End: 06-26-2023 ambulatory NON STAFF Facility:[facility] Start: 06-26-2023 End: 06-26-2023 ambulatory NON STAFF [facility] Work Phone: Start: 06-26-2023 End: 06-26-2023 Patient encounter procedure MD Jr Sinha Work Phone: [facility] Work Phone: Start: 06-15-2023 End: 06-15-2023 ambulatory JR SINHA Facility: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) Start: 12-05-2022 Telephone encounter Gene Quiroz RNblow pit helper Comment on above: Education Of Patient /family Start: 06-13-2022 End: 06-15-2022 Evaluation and management of inpatient JALEEL RAYA [facility] Start: 06-12-2022 End: 06-15-2022 Evaluation and management of inpatient Owen Lin MD Work Phone: [employer] [facility] Start: 06-10-2022 End: 06-11-2022 ambulatory RUBEN Kapoor ADAKOKI [facility] Start: 06-10-2022 End: 06-11-2022 Emergency department patient visit Viktor Otto MD Work Phone: [facility] Observation Comment on above: Chest pain, unspecif ied type (Primary Dx) Start: 04-28-2022 End: 04-28-2022 Patient encounter procedure Jr Sinha MD Work Phone: General Surgery Comment on above: 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); Perforated ulcer (HCC) Start: 04-25-2022 End: 04-26-2022 ambulatory SHEY Jolene FARR [facility] Start: 04-25-2022 End: 04-26-2022 Emergency department patient visit Margarito Gonsales MD Work Phone: [facility] ED Comment on above: General weakness (Pr [...] for preprocedural laboratory examination DR DOCTOR SAMANIEGO [facility] Start: 12-07-2020 End: 12-07-[address] DOCTOR SAMANIEGO Facility:[facility]1 Start: 12-07-2020 End: 12-07-2020 Encounter for preprocedural laboratory examination DR DOCTOR SAMANIEGO Facility:[facility]1 Procedures Date Procedure Procedure Detail Performing Clinician Start: 10-21-2023 Basic metabolic pane l calcium total Leliamable Mcdonough DIRECTOR [employer] Work Phone: Start: 10-20-2023 Drug tst prsmv instr mnt chem analyzers pr date Ricci Aguirre DIRECTOR [employer] Work Phone: Start: 10-20-2023 Urnls dip stick/tabl et rgnt auto w/o microscopy James Wilson DIRECTOR [employer] Work Phone: Start: 10-20-2023 Procalcitonin (pct) Lynn Wilson DIRECTOR [employer] Work Phone: Start: 10-20-2023 Blood count complete auto&auto difrntl wbc Lelia Jamisonmaris Mcdonough DIRECTOR [employer] Work Phone: Start: 10-19-2023 Radiologic exam ches t single view [facility] Work Phone: Start: 10-19-2023 SARS/FLU A+B/RSV BY NAAT/MOLECULAR (M4RT COLLECTION TUBE) Ricci Aguirre [facility] Work Phone: Start: 10-19-2023 Ecg routine ecg w/le ast 12 lds trcg only w/o i&r Ricci Aguirre [facility] Work Phone: Start: 10-19-2023 End: 10-19-2023 Culture bacterial blood aerobic w/id isolates Ricci Aguirre [facility] Work Phone: Start: 10-19-2023 End: 10-19-2023 Comprehensive metabolic panel Ricci Aguirre [facility] Work Phone: Start: 10-19-2023 Ethanol [Mass/volume ] in Serum or Plasma Ricci Aguirre [facility] Work Phone: Start: 06-15-2022 Glucose blood [...] W/ REFLEX TO MG FOR LOW K Praneteh Mata DO Work Phone: Start: 06-14-2022 Glucose blood reagen t strip Praneeth Mata DO Work Phone: Start: 06-13-2022 Glucose blood reagen t strip Jaleel Mckennau DO Work Phone: Start: 06-13-2022 Glucose blood reagen t strip Jaleel Raya DO Work Phone: Start: 06-13-2022 Glucose blood reagen t strip Jaleel Raya DO Work Phone: Start: 06-13-2022 End: 06-13-2022 Assay of magnesium Jimena Bryant DIRECTOR [facility] [employer]FORMATION [employer] Work Phone: Start: 06-13-2022 Lipid panel Jimena Bryant DIRECTOR [facility] [facility] Work Phone: Start: 06-13-2022 Ecg routine ecg w/le ast 12 lds i&r only Jimena Bryant [employer] Work Phone: Start: 06-13-2022 Assay of troponin quantitative Jimena Bryant DIRECTOR [facility] Work Phone: Start: 06-12-2022 End: 06-13-2022 Assay of troponin quantitative Jimena Bryant DIRECTOR [facility] Work Phone: Start: 06-11-2022 Glucose blood reagen [...] #### C BC, BMP, PHOS, MG1 #### [place] [address] Start: 08-28-2020 Antibody screen Comment on above: Performed By: #### C BC, BMP, PHOS, MG1 #### [place] [address] Start: 04-18-2020 History of placement of stent [...] Screening for malign ant neoplasm of colon [facility] [employer] Start: 07-11-2024 BP Controlled (<130/80) BP Controlle d (<130/80) [facility] Start: 06-15-2024 BP CONTROLLED (<130/80) BP CONTROLLE D (<130/80) [facility] Start: 12-07-2023 Hemoglobin A1c/Hemoglobin.total in Blood HBA1C [facility] Start: 11-16-2023 End: 11-16-2023 Patient encounter procedure 11/16/2023 10:00 AM EST Office Visit [facility] - [facility] [address] [place] [phone] Hosea Morelos MD [facility] [address] [place] [address] [facility] Start: 06-16-2023 Covid-19 Vaccine () Covid-19 Vaccine () [facility] Start: 06-16-2023 Influenza vaccination C [facility] Start: 06-13-2023 Lipid panel Lipids [facility] [employer] Start: 04-28-2023 BP CONTROLLED (<130/80) BP CONTROLLE D (<130/80) [facility] Start: 02-10-2023 COLORECTAL CANCER SCREENING COLORECTAL CANCER SCREENING [facility] Start: 02-10-2023 FECAL OCCULT BLOOD FECAL OCCULT BLOO D [facility] Start: 02-10-2023 Screening for malign ant neoplasm of colon FIT/FOBT: Average risk [facility] Start: 12-11-2022 Hemoglobin A1c measurement A1C test (Diabetic or Prediabetic) [facility] Start: 10-16-2022 DEPRESSION ASSESSMENT DEPRESSION ASS ESSMENT [facility] Start: 09-29-2022 BP CONTROLLED (<130/80) BP CONTROLLE D (<130/80) [facility] Start: 06-16-2022 Influenza vaccination C [facility] Start: 06-10-2022 Hemoglobin A1c/Hemoglobin.total in Blood HBA1C [facility] Start: 05-31-2022 Mammography [facility] Start: 04-28-2022 End: 06-28-2022 CREATININE BLD CREATININE BLD Lab Routine Perforated ulcer (HCC) Expected: 04/28/2022, Expires: 06/28/2022 [facility] Work Phone: Comment on above: Expected: 04/28/2022 , Expires: 06/28/2022 Start: 04-28-2022 End: 05-28-2023 Ct abdomen & pelvis w/contrast material CT ABD/PEL W IVCON Radiology Routine Perforated ulcer (HCC) Expected: 04/28/2022, Expires: 05/28/2023 [facility] Work Phone: Comment on above: Expected: 04/28/2022 , Expires: 05/28/2023 Start: 12-10-2021 Colonoscopy COLONOSCOPY [facility] Start: 12-10-2021 COLORECTAL CANCER SCREENING COLORECTAL CANCER SCREENING [facility] Start: 2021 Hepatitis B Vaccine (1 of 3 - Risk 3-dose series) Hepatitis B Vaccine (1 of 3 - Risk 3-dose series) [facility] Start: 2021 RSV Vaccine (1 - 1-d ose 60+ series) RSV Vaccine (1 - 1-dose 60+ series) [facility] Start: 04-14-2021 COVID-19 VACCINE (3 - Moderna series) COVID-19 VACCINE (3 - Moderna series) [facility] Start: 06-21-2019 Screening for malign ant neoplasm of breast Breast cancer screen [facility] Start: 03-27-2019 Lipid panel Lipids [facility] [employer] Start: 06-21-2018 Screening for malign ant neoplasm of breast Breast cancer screen [facility] Start: 2011 Screening for malign ant neoplasm of breast Breast cancer screen [facility] Start: 2011 Screening for malign ant neoplasm of lung Low dose CT lung screening [facility] Start: 2011 Shingles vaccine (1 of 2) Shingles vaccine (1 of 2) [facility] Start: 2011 SHINGRIX VACCINE (1 of 2) SHINGRIX VACCINE (1 of 2) [facility] Start: 2006 COLOGUARD (FIT-DNA) COLOGUARD (FIT-D NA) [facility] Start: [address] COLONOGRAPHY [facility] Start: 2006 FECAL OCCULT BLOOD FECAL OCCULT BLOO D [facility] Start: 2006 Screening for malign ant neoplasm of colon [facility] Start: 2006 SIGMOIDOSCOPY SIGMOIDOSCOPY [facility] Start: 07-06-2005 Urine microalbumin profile DTaP,Tdap,Td Vaccine (1 - Tdap) [facility] Start: 2001 Mammography MAMMOGRAM [facility] Start: 1991 HPV TESTING HPV TESTING [facility] Start: 1991 Screening for malign ant neoplasm of cervix [facility] Start: 1982 PAP TESTING PAP TESTING [facility] Start: 1982 Screening for malign ant neoplasm of cervix Pap smear [facility] Start: 1980 DTaP/Tdap/Td vaccine (1 - Tdap) DTaP/Tdap/Td vaccine (1 - Tdap) [facility] Start: 1980 SHINGRIX VACCINE (1 of 2) SHINGRIX VACCINE (1 of 2) [facility] Start: 1980 Urine microalbumin profile [facility] Start: 1979 ANNUAL PCP TEAM RECOVERY COLLECTOR TATYANA DISEASE VISIT ANNUAL PCP TEAM CHRONIC DISEASE VISIT [facility] Start: 1979 Diabetic retinal exam Diabetic retin al exam [facility] Start: 1979 Hepatitis B surface antibody level LDL CHOLESTEROL [facility] Start: 1979 HEPATITIS C SCREENING HEPATITIS C SC REENING [facility] Start: 1979 Hepatitis C screening Hepatitis C sc reen [facility] Start: 1979 HIV SCREENING HIV SCREENING [facility] Start: 1979 Urine screening for protein Diabetic microalbuminuria test [facility] Start: 1977 ONE PNEUMOVAX PRIOR TO AGE 65 ONE PNEUMOVAX PRIOR TO AGE 65 [facility] Start: 1976 HIV screening HIV screen [facility] Start: 1973 Adult depression screening assessment DEPRESSION SCREENING [facility] Start: 1973 Depression Screen Depression Screen [facility] Start: 1971 3 comp foot exam completed DIABETIC FOOT EXAM [facility] Start: 1971 Diabetic foot examination Diabetic foot exam [facility] Start: 1971 Hemoglobin A1c measurement A1C test (Diabetic or Prediabetic) [facility] Start: 1971 Hepatitis B screening URINE AL BUMIN:CREATININE RATIO [facility] Start: 1971 Hepatitis C antibody , confirmatory test DILATED RETINAL EXAM [facility] Start: 1971 Lipid panel Lipids [facility] Start: 1967 PNEUMOCOCCAL (1 - PCV) PNEUMOCOCCAL (1 - PCV) [facility] Start: 1967 Pneumococcal 0-64 ye ars Vaccine (1 - PCV) Pneumococcal 0-64 years Vaccine (1 - PCV) [facility] Start: 1967 Pneumococcal vaccination Pneum ococcal Vaccine (1 - PCV) [facility] Start: 1966 COVID-19 VACCINE (#1) COVID-19 VACCI NE (#1) [facility] Start: 1966 COVID-19 VACCINE (1) COVID-19 VACCIN E (1) [facility] Start: 1961 COVID-19 VACCINE (#1) COVID-19 VACCI NE (#1) [facility] Bacteria identified in Blood by [employer] culture [employer] End: 10-19-2023 Bacteria identified in Urine by Culture [employer] Work Phone: Comment on above: STAT for 1 Occurrenc es starting 10/19/2023 until 10/19/2023 End: 10-23-2023 Basic metabolic 2000 panel - Serum or Plasma Basic Metabolic Panel Lab Routine Lab max of 3 days, Daily, for lab use only for 3 Days starting 10/21/2023 until 10/23/2023, 1 completed [employer] Comment on above: Lab max of 3 days, D aily, for lab use only for 3 Days starting 10/21/2023 until 10/23/2023, 1 completed End: 06-13-2022 Catheterization and angiography procedure details panel Cardiac Catheterization Cardiac Cath Routine One Time for 1 Occurrences starting 06/13/2022 until 06/13/2022 [employer] Work Phone: Comment on above: One Time for 1 Occur rences starting 06/13/2022 until 06/13/2022 End: 10-22-2023 CBC W Auto Differential panel - Blood CBC auto differential Lab Routine Lab max of 3 days, Daily, for lab use only for 3 Days starting 10/20/2023 until 10/22/2023, 2 completed [employer] Comment on above: Lab max of 3 days, D aily, for lab use only for 3 Days starting 10/20/2023 until 10/22/2023, 2 completed Continuous pulse oximetry Pulse oximetry, continuous Respiratory Care STAT Every 4hr until discontinued starting 04/26/2022 [employer] Phone: Comment on above: Every 4hr until disc ontinued starting 04/26/2022 Continuous pulse oximetry Pulse oximetry, continuous Respiratory Care Routine Every 4hr until discontinued starting 06/13/2022 [employer] Phone: Comment on above: Every 4hr until disc ontinued starting 06/13/2022 End: 07-11-2024 EGD DIAGNOSTIC EGD DIAGNOSTIC Endoscopy Routine Abdominal distension History of partial gastrectomy Gastric ulcer with perforation, unspecified chronicity (HCC) Hx of cholecystectomy 1 Occurrences starting 07/11/2023 until 07/11/2024 [facility] Work Phone: Comment on above: 1 Occurrences starti ng 07/11/2023 until 07/11/2024 EKG 12 Lead EKG 12 Lead ECG STAT 06/10/2022 2:04 PM EDT [employer] Phone: EKG 12 Lead EKG 12 Lead ECG Routine 06/11/2022 6:00 AM EDT [employer] Phone: EKG 12 lead EKG 12 lead ECG Routine As Needed until discontinued starting 06/12/2022 [employer] Phone: Comment on above: As Needed until disc ontinued starting 06/12/2022 Glucose [Mass/volume ] in Serum or Plasma [employer] Phone: Comment on above: As Needed until disc ontinued starting 06/12/2022 4X Daily (AC & HS) u ntil discontinued starting 06/13/2022 End: 06-15-2022 JAK2 GENE MUTATION, QUANTITATIVE JAK2 GENE MUTATION, QUANTITATIVE Lab Routine One Time for 1 Occurrences starting 06/15/2022 until 06/15/2022 [employer] Phone: Comment on above: One Time for 1 Occur rences starting 06/15/2022 until 06/15/2022 Oxygen Therapy - Maintain SpO2: 90%; *SHEET HEATER HELPER Guidelines for O2: Yes; Document: \[email or web address]\epi c\EPIC_Reference\Orders\ Respiratory Care Guidelines\CPG Oxygen 2020.pdf Oxygen Therapy - Maintain SpO2: 90%; *SHEET HEATER HELPER Guidelines for O2: Yes; Document: \[email or web address]\epic \EPIC_Reference\Orders\Re spiratory Care Guidelines\CPG Oxygen 2020.pdf Respiratory Care Routine As Needed until discontinued starting 10/20/2023 [facility] Work Phone: Comment on above: As Needed until disc ontinued starting 10/20/2023 End: 04-25-2022 Oxygen therapy [Minimum Data Set] Initiate Oxygen Therapy Protocol Respiratory Care STAT Once for 1 Occurrences starting 04/25/2022 until 04/25/2022 [employer] Phone: Comment on above: Once for 1 Occurrenc es starting 04/25/2022 until 04/25/2022 Oxygen therapy [Mini mum Data Set] Initiate Oxygen Therapy Protocol Respiratory Care Routine As Needed until discontinued starting 06/12/2022 [employer] Phone: Comment on above: As Needed until disc ontinued starting 06/12/2022 Oxygen therapy [[facility] Data Set] Initiate Oxygen Therapy Protocol Respiratory Care Routine As Needed until discontinued starting 06/14/2022 [employer] Phone: Comment on above: As Needed until disc ontinued starting 06/14/2022 End: 04-25-2022 Troponin I.cardiac [Mass/volume] in Serum or Plasma [employer] Phone: Comment on above: Once for 1 Occurrenc es starting 04/25/2022 until 04/25/2022 End: 07-14-2024 XR GI SMALL BOWEL FOLLOW-THRU XR GI SMALL BOWEL FOLLOW-THRU Radiology Routine Neuroendocrine carcinoma of small bowel (HCC) 1 Occurrences starting 06/15/2023 until 07/14/2024 [facility] Work Phone: Comment on above: 1 Occurrences starti ng 06/15/2023 until 07/14/2024 End: 07-14-2024 XR UPPER GI SINGLE CONTRAST XR UPPER GI SINGLE CONTRAST Radiology Routine Neuroendocrine carcinoma of small bowel (HCC) 1 Occurrences starting 06/15/2023 until 07/14/2024 [facility] Work Phone: Comment on above: 1 Occurrences starti ng 06/15/2023 until 07/14/2024 [facility] Payers Date Payer Category Payer Self-pay 2014 Unknown [id number] 2014 Unknown [id number] 2005 Unknown [facility] [id number] 2005-Present [phone] [address] [address] [place] [address] Indemnity [id number] 2005 Unknown [id number] 1961 Unknown [id number] 1961 Unknown [id number] 1961 Unknown [id number] 1961 Unknown [id number] 1961 Unknown [id number] 6 1961 Unknown [id number] 6 1961 Unknown [id number] 6 1961 Unknown [id number] 6 1961 Unknown [id number] 6 1961 Unknown [id number] 6 1961 Unknown [id number] 6 1959 Unknown [id number] Unknown [id number] Social History Date Type Detail Facility Start: 08-28-2020 End: 10-02-2023 Tobacco smoking status AZIS Smokes tobacco daily [facility] Start: 05-11-1980 End: 06-11-2022 History of tobacco use Cigarette Smoker [facility] Start: 08-28-2020 End: 10-20-2023 Cigarettes smoked current (pack per day) - Reported 1 [facility] Start: 08-28-2020 End: 10-02-2023 Tobacco use and exposure Smokeless tobacco non-user [facility] Start: 09-29-2021 End: 07-11-2023 Alcohol intake Lifetime non-drinker (finding) [facility] Start: 08-31-2020 End: 09-01-2020 History SDOH Alcohol Frequency 1 [facility] Start: 09-01-2020 History SDOH Financial 4 [facility] Start: 09-01-2020 History SDOH Transport Med 2 [place] [facility] Start: 1960 Sex Assigned At Female [facility] Start: 01-22-2022 End: 06-13-2022 Exposure to SARS-CoV-2 (event) Not sure [facility] Start: 04-22-2020 End: 06-14-2022 Alcohol intake Current drinker of alcohol (finding) [employer] Phone: Start: 03-26-2018 History SDOH Alcohol Comment once in a while [employer] Phone: Start: 03-26-2018 Tobacco Comment smoking cessation ordered [employer] Phone: Start: 1960 Sex Assigned At Not on file [employer] Phone: Start: 06-11-2022 Tobacco smoking status AZIS Ex-smoker [facility] Start: 05-11-1980 End: 06-11-2022 History of tobacco use Current smoker [employer] Phone: Start: 06-11-2022 Tobacco Comment Refused smoking cessation counseling education given on risk vs benefits of quitting smoking verbally [employer] Phone: Start: 08-31-2020 End: 10-20-2023 Alcohol Use Disorder Identification Test - Consumption [AUDIT-C] [facility] How often to you hav e a drink containing alcohol? Never [facility] Average Number of Drinks Not on file [facility] How hard is it for y ou to pay for the very basics like food, housing, medical care, and heating Not very hard [facility] (I/We) worried wheth er (my/our) food would run out before (I/we) got money to buy more. Never true [facility] Start: 07-03-2020 Gender identity Identifies as female gender (finding) [facility] Start: 07-03-2020 Sexual orientation Heterosexual (finding) [facility] Start: 10-20-2023 Alcohol intake Ex-drinker (finding) [employer] Has the [employer], [employer] threatened to shut off services in your home in past 12Mo No [employer] Are you now , , , , never or living with a partner? [employer] Do you feel stress - tense, restless, nervous, or anxious, or unable to sleep at night because your mind is troubled all the time - these days [OSQ] Only a little [employer] Medical Equipment Procedure Code Equipment Code Equipment Origin al Text Equipment Identifier Dates TEST FASTING QAM [id number] Start: 08-08-2017 Comment on above: TEST FASTING [...] All questions answered per pt and family. [facility] 10-21-2023 Nurse Note Patient and daughter [...] pt and family. [facility] Plan of care note Problem: Pain Goal: Patient goal is pain score less than 4, able to rest, and participant in treatment plan as appropriate Description: INTERVENTIONS: 1. Encourage patient or legal promotional representative to report early pain and ask [...] per policy 9. Teach patient or legal promotional representative interventions for comforting Outcome: Progressing Note: Evaluation of progress towards goal: PT REPORTS IMPROVED PAIN CONTROL WITH CURRENT MEDICATIONS, EDUCATED ON NONPHARMOCOLOGIC TECHNIQUES TO AID IN COMFORT. RESTING COMFORTABLY IN CHAIR IN NO ACUTE DISTRESS, ABLE TO AMBULATE WELL. [employer] 10-21-2023 Miscellaneous Notes Problem: Pain Goal: Patient goal is pain score less than 4, able to rest, and participant in treatment plan as appropriate Description: INTERVENTIONS: 1. Encourage patient or legal promotional representative to report early pain and ask [...] per policy 9. Teach patient or legal promotional representative interventions for comforting Outcome: Progressing Note: [...] RN, Cat) Equipment: rolling walker, nonskid socks Telemetry/Financial Services Rep: Yes Oxygen Used: Room Air Other: fall [...] Active Problems: Diabetes mellitus type 2, controlled ([facility]) Anxiety disorder, unspecified Chronic diastolic (congestive) heart failure ([facility]) Dyslipidemia Essential hypertension Hypokalemia Generalized weakness Severe malnutrition ([facility]) Smoker Problem: Pain Goal: Patient goal is pain score less than 4, able to rest, and participant in treatment plan as appropriate Description: INTERVENTIONS: 1. Encourage patient or legal promotional representative to report early pain and ask [...] per policy 9. Teach patient or legal promotional representative interventions for comforting Outcome: Progressing Note: [...] at the bedside 7. Instruct patient/ patient promotional representative about use of safety devices 8. Include patient/ patient promotional representative in decisions related to safety Outcome: Progressing Note: Evaluation of progress towards goal: Patient remains free from falls and injury. Call light in reach and personal items in reach on bedside table. Needs assessed hourly. 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 Breast lesion 2017 ATYPICAL HYPERPLASIA LEFT BREAST CAD (coronary artery disease) S/P OR WITH STENTS 03/2018 & 04/2018 Cancer ([facility] CHF (congestive heart failure) ([facility]) Clotting disorder ([facility]) Diabetes mellitus ([facility]) DX 05/2017 Diabetes mellitus type 2, controlled ([facility]) Essential hypertension 08/28/2020 History of spleen injury spleen repair 1984 Insomnia Myocardial infarction ([facility]) 03/30/2018 Neuroendocrine cancer ([facility]) small bowel Neuropathy Peptic ulceration [...] 12/24/2018 Performed by Kalen Osborne MD at [facility] GASTRECTOMY 2019 HYSTERECTOMY 2003 COMPLETE LUMPECTOMY BREAST WITH NEEDLE LOCALIZATION FS Left 08/15/2017 Performed by Margarito Page DO at [facility] Bilateral 2002 [...] [facility]ER[facility] Equipment: rolling walker, nonskid socks, IV Telemetry/Financial Services Rep: Yes Oxygen Used: room air Other: fall [...] feels safe with patient going home with [facility]. Hearing / Speech / Vision Hearing: [...] Active Problems: Diabetes mellitus type 2, controlled ([facility]) Anxiety disorder, unspecified Dyslipidemia Essential hypertension Hypokalemia Generalized weakness Severe malnutrition ([facility]) Occupational Therapy Evaluation (ginathers present, appear supprtive, provide subjective info) Discharge Recommendations OT Recommendations : [facility] Facility (vs home dependent on clinical course [...] 12/24/2018 Performed by Kalen Osborne MD at [facility] GASTRECT[facility]Y 2020 HYSTERECTOMY 2003 COMPLETE LUMPECTOMY BREAST WITH NEEDLE LOCALIZATION FS Left 08/15/2017 Performed by Margarito Page DO at [facility] OOPHORECT[facility] Bilateral 2002 OTHER SURGICAL HISTORY 1983 spleen repair SMALL INTESTINE SURGERY TUBAL LIGATION VENTRICULOPERITONEAL SHUNT Past Medical History: Diagnosis Date Anxiety and depression 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 Breast lesion 2017 ATYPICAL HYPERPLASIA LEFT BREAST CAD (coronary artery disease) S/P OR WITH STENTS 03/2018 & 04/2018 Cancer ([facility]) CHF (congestive heart failure) ([facility]) Clotting disorder ([facility] Diabetes mellitus ([facility]) DX 05/2017 Diabetes mellitus type 2, controlled ([facility]) Essential hypertension 08/28/2020 History of spleen injury spleen repair 1983 Insomnia Myocardial infarction ([facility]) 03/30/2018 Neuroendocrine cancer ([facility]) small bowel Neuropathy Peptic ulceration [...] Eileen FERNANDEZ Equipment: O2, non skid socks Telemetry/Financial Services Rep: Yes Oxygen Used: 2 L via nasal [...] (head of bed elevated. daugthers assist plus keno writer, ed to not pull on pt's UE's, increased time needed for completion, increased pain with movement.) Sit to Supine: Max assist (+ keno writer and daugthers) Other: patient upon sitting edge [...] Active Problems: Diabetes mellitus type 2, controlled ([facility]) Anxiety disorder, unspecified Dyslipidemia Essential hypertension Hypokalemia Generalized weakness Severe malnutrition ([facility]) DISCHARGE PLANNING NOTE Spoke with patient on telephone. Confirmed name and . Patient requested keno writer speak with her daughter Dulce who is [...] Corina Cook. Confirmed pharmacy is [facility] in [place]. Denies utilizing any community resources and denies [...] Description: INTERVENTIONS: 1. Encourage patient or legal promotional representative to report early pain and ask [...] per policy 9. Teach patient or legal promotional representative interventions for comforting Outcome: Progressing Note: [...] at the bedside 7. Instruct patient/ patient promotional representative about use of safety devices 8. Include patient/ patient promotional representative in decisions related to safety Outcome: [...] hygiene technique 7. Identify and instruct patient/patient promotional representative in use of appropriate isolation precautions for identified infection/symptoms 8. Provide and discuss with patient/patient promotional representative on educational MDRO sheet 9. Encourage and monitor nutritional status daily and consult system designer if indicated 10. Implement neutropenic guidelines as [...] as needed. Problem: Knowledge Deficit Goal: Patient/patient promotional representative demonstrates understanding of disease process, treatment [...] Description: INTERVENTIONS: 1. Encourage patient or legal promotional representative to report early pain and ask [...] per policy 9. Teach patient or legal promotional representative interventions for comforting Outcome: Progressing Note: [...] at the bedside 7. Instruct patient/ patient promotional representative about use of safety devices 8. Include patient/ patient promotional representative in decisions related to safety Outcome: Progressing Note: Evaluation of progress towards goal: Pt remains free from falls or accidental injury during stay. Fall prevention measures in place. Hourly rounding per RN and NA maintained. Problem: Knowledge Deficit Goal: Patient/patient promotional representative demonstrates understanding of disease process, treatment plan, medications, and discharge instructions Description: INTERVENTIONS 1. Complete learning assessment and assess knowledge base 2. Provide teaching at level of understanding 3. Provide teaching via preferred learning method(s) Outcome: Progressing Note: Evaluation of progress towards goal: POC discussed with patient. Questions answered PRN. documented in this encounter [facility] 10-21-2023 Hospital course Narrative DISCHARGE NOTE Demographics: Patient Name: Honey Montes : 1960 DATE OF ADMISSION: 10/19/2023 DATE OF DISCHARGE: 10/21/2023 DISCHARGE DIAGNOSES: Principal Problem: COVID-19 Active Problems: Diabetes mellitus type 2, controlled ([facility]) Anxiety disorder, unspecified Chronic diastolic (congestive) heart failure ([facility]) Dyslipidemia Essential hypertension Hypokalemia Generalized weakness Severe malnutrition ([facility]) Smoker CONSULTANTS: Consulting Providers Not [...] Regular Texture Follow up: Corina Cook MD [address] [place] [id number] For most accurate medication list, please review the discharge medication summary. 32 minutes were spent on discharging this patient. documented in this encounter [employer] 10-21-2023 Progress note Formatting of t his [...] RN, Cat) Equipment: rolling walker, nonskid socks Telemetry/Financial Services Rep: Yes Oxygen Used: Room Air Other: fall [...] Active Problems: Diabetes mellitus type 2, controlled ([facility]) Anxiety disorder, unspecified Chronic diastolic (congestive) heart failure ([facility]) Dyslipidemia Essential hypertension Hypokalemia Generalized weakness Severe malnutrition ([facility]) Smoker [facility] [employer] 10-20-2023 Plan of care note Problem: Pain Goal: Patient goal is pain score less than 4, able to rest, and participant in treatment plan as appropriate Description: INTERVENTIONS: 1. Encourage patient or legal promotional representative to report early pain and ask [...] per policy 9. Teach patient or legal promotional representative interventions for comforting Outcome: Progressing Note: [...] at the bedside 7. Instruct patient/ patient promotional representative about use of safety devices 8. Include patient/ patient promotional representative in decisions related to safety Outcome: Progressing Note: Evaluation of progress towards goal: Patient remains free from falls and injury. Call light in reach and personal items in reach on bedside table. Needs assessed hourly. [facility] [employer] 10-20-2023 Progress note Formatting of t his note is different from the original. 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 Breast lesion 2017 ATYPICAL HYPERPLASIA LEFT BREAST CAD (coronary artery disease) S/P OR WITH STENTS 03/2018 & 04/2018 Cancer ([facility]) CHF (congestive heart failure) ([facility]) Clotting disorder ([facility]) Diabetes mellitus ([facility]) DX 05/2017 Diabetes mellitus type 2, controlled ([facility]) Essential hypertension 08/28/2020 History of spleen injury spleen repair 1984 Insomnia Myocardial infarction ([facility]) 03/30/2018 Neuroendocrine cancer ([facility]) small bowel Neuropathy Peptic ulceration [...] 12/24/2018 Performed by Kalen Osborne MD at [facility] GAST[facility] 2020 HYSTERECTOMY 2003 COMPLETE LUMPECTOMY BREAST WITH NEEDLE LOCALIZATION FS Left 08/15/2017 Performed by Margarito Page DO at [facility] OOPHORECT[facility] Bilateral 2002 OTHER SURGICAL HISTORY [...] FERNANDEZ Equipment: rolling walker, nonskid socks, IV Telemetry/Financial Services Rep: Yes Oxygen Used: room air Other: fall [...] feels safe with patient going home with [facility]. Hearing / Speech / Vision Hearing: [...] Active Problems: Diabetes mellitus type 2, controlled ([facility]) Anxiety disorder, unspecified Dyslipidemia Essential hypertension Hypokalemia Generalized weakness Severe malnutrition ([facility]) [facility] [employer] [facility] 10-20-2023 Progress note Formatting of t his note is different from the original. Occupational Therapy Evaluation (daugthers present, appear supprtive, provide subjective info) Discharge Recommendations OT Recommendations : [facility] Facility (vs home dependent on clinical course [...] 12/24/2018 Performed by Kalen Osborne MD at [facility] GAST[facility] 2019 HYSTERECTOMY 2003 COMPLETE LUMPECTOMY BREAST WITH NEEDLE LOCALIZATION FS Left 08/15/2017 Performed by Margarito Page DO at [facility] OOP[facility] Bilateral 2002 OTHER SURGICAL HISTORY 1983 spleen repair SMALL INTESTINE SURGERY TUBAL LIGATION VENTRICULOPERITONEAL SHUNT Past Medical History: Diagnosis Date Anxiety and depression 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 Breast lesion 2016 ATYPICAL HYPERPLASIA LEFT BREAST CAD (coronary artery disease) S/P OR WITH STENTS 03/2018 & 04/2018 Cancer ([facility]) CHF (congestive heart failure) ([facility]) Clotting disorder ([facility]) Diabetes mellitus ([facility]) DX 05/2017 Diabetes mellitus type 2, controlled ([facility]) Essential hypertension 08/28/2020 History of spleen injury spleen repair 1984 Insomnia Myocardial infarction ([facility]) 03/30/2018 Neuroendocrine cancer ([facility]) small bowel Neuropathy Peptic ulceration [...] Eileen FERNANDEZ Equipment: O2, non skid socks Telemetry/Financial Services Rep: Yes Oxygen Used: 2 L via nasal [...] (head of bed elevated. daugthers assist plus keno writer, ed to not pull on pt's UE's, increased time needed for completion, increased pain with movement.) Sit to Supine: Max assist (+ keno writer and daugthers) Other: patient upon sitting edge [...] Active Problems: Diabetes mellitus type 2, controlled ([facility]) Anxiety disorder, unspecified Dyslipidemia Essential hypertension Hypokalemia Generalized weakness Severe malnutrition ([facility]) [facility] [employer] Work Phone: 10-20-2023 Progress note Formatting of t his note might be different from the original. DISCHARGE PLANNING NOTE Spoke with patient on telephone. Confirmed name and . Patient requested keno writer speak with her daughter Dulce who is [...] Corina Cook. Confirmed pharmacy is [facility] in [place]. Denies utilizing any community resources and denies [...] Care Navigation following for safe care transition. [facility] [employer] [facility] 10-20-2023 Plan of care note Problem: Pain Goal: Patient goal is pain score less than 4, able to rest, and participant in treatment plan as appropriate Description: INTERVENTIONS: 1. Encourage patient or legal promotional representative to report early pain and ask [...] per policy 9. Teach patient or legal promotional representative interventions for comforting Outcome: Progressing Note: [...] at the bedside 7. Instruct patient/ patient promotional representative about use of safety devices 8. Include patient/ patient promotional representative in decisions related to safety Outcome: [...] hygiene technique 7. Identify and instruct patient/patient promotional representative in use of appropriate isolation precautions for identified infection/symptoms 8. Provide and discuss with patient/patient promotional representative on educational MDRO sheet 9. Encourage and monitor nutritional status daily and consult system designer if indicated 10. Implement neutropenic guidelines as [...] as needed. Problem: Knowledge Deficit Goal: Patient/patient promotional representative demonstrates understanding of disease process, treatment [...] updated regarding process on discharge as needed. [facility] 10-20-2023 History and physical note Images from the original note were not included. [facility]PITALISTS Todd Jack, MD Aidan Diana, MD Duane Armando, MD Shantelle Govea, MD Ginette Vallejo, MD Shanell Kessler, MD Tyree Crook, MD Roxanna Armas, MD Griselda Bess, HEALTH INFORMATION TECH Torrie Clark, HEALTH INFORMATION TECH Rosalina Gilman, HEALTH INFORMATION TECH Myra Parson, HEALTH INFORMATION TECH Ashley Bucio, HEALTH INFORMATION TECH Araceli Mott, HEALTH INFORMATION TECH Celestina Swift, [facility] Angle García, [facility] James Wilson, [facility] Lelia Mcdonough, HEALTH INFORMATION TECH Camilla Mcgee, [facility] Marta Reinoso, HEALTH INFORMATION TECH Ricci Johnson, HEALTH INFORMATION TECH Lauro Villar, [facility] Joann Etienne, HEALTH INFORMATION TECH Camilla Wang, [facility] Crystal Candelaria, HEALTH INFORMATION TECH Gaurav Mcconnell, [facility] Medicine History & Physical Patient: Honey Montes [...] lesion (2016), CAD (coronary artery disease), Cancer ([facility]), CHF (congestive heart failure) ([facility]), Clotting disorder ([facility]), Diabetes mellitus ([facility]), Diabetes mellitus type 2, controlled ([facility]), Essential hypertension (08/28/2020), History of spleen injury, Insomnia, Myocardial infarction ([facility]) (03/30/2018), Neuroendocrine cancer ([facility]), Neuropathy, Peptic ulceration, Peripheral neuropathy, [...] Active Problems: Diabetes mellitus type 2, controlled ([facility]) Anxiety disorder, unspecified Chronic diastolic (congestive) heart failure ([facility]) Dyslipidemia Essential hypertension Hypokalemia Generalized weakness Severe malnutrition ([facility]) Smoker ASSESSMENT & PLAN COVID-19 [...] of remdesivir. RITA Long, 10/20/2023 3:47 PM [facility] Hospitalists 7AM-7PM: Message rounding JASEN in [employer] or page through [employer]. 7PM-7AM: Page on-call JASEN through our answering [...] reprts/films.I agree with the plan as noted. [facility] 10-20-2023 History and physical note Images from the original note were not included. [facility]OSPITALISTS MD Aidan Ojeda MD Kaleem Gill, MD Sneha Kommoori, MD Ruqiyya Vallejo, MD Shanell Kessler, MD Tyree Crook, MD Roxanna Armas, MD Griselda Bess, HEALTH INFORMATION TECH Torrie Clark, HEALTH INFORMATION TECH Rosalina Chowright, HEALTH INFORMATION TECH Myra Parson, HEALTH INFORMATION TECH Ashley Bucio, HEALTH INFORMATION TECH Araceli Mott, HEALTH INFORMATION TECH Celestina Hdezt, HEALTH INFORMATION TECH Angle Murphydewey, HEALTH INFORMATION TECH James Steve, HEALTH INFORMATION TECH Lelia Ceasar, HEALTH INFORMATION TECH Camilla Everardo, HEALTH INFORMATION TECH Marta Kemar, HEALTH INFORMATION TECH Ricci Monasarah beth, HEALTH INFORMATION TECH Lauro Villar, HEALTH INFORMATION TECH Joann Etienne, HEALTH INFORMATION TECH Camilla Kathleen, [facility] Crystal Candelaria, [facility] Gaurav Mcconnell, [facility] Medicine History & Physical Patient: Honey Montes [...] lesion (2016), CAD (coronary artery disease), Cancer ([facility]), CHF (congestive heart failure) ([facility]), Clotting disorder ([facility]), Diabetes mellitus ([facility]), Diabetes mellitus type 2, controlled ([facility]), Essential hypertension (08/28/2020), History of spleen injury, Insomnia, Myocardial infarction ([facility]) (03/30/2018), Neuroendocrine cancer ([facility]), Neuropathy, Peptic ulceration, Peripheral neuropathy, [...] Active Problems: Diabetes mellitus type 2, controlled ([facility]) Anxiety disorder, unspecified Chronic diastolic (congestive) heart failure ([facility]) Dyslipidemia Essential hypertension Hypokalemia Generalized weakness Severe malnutrition ([facility]) Smoker ASSESSMENT & PLAN COVID-19 [...] remdesivir. James Wilson, HALI[facility]KAT, 10/20/2023 3:47 PM [facility] Medicine - [facility] Hospitalists 7AM-7PM: Message rounding JASEN in [employer] or page through [employer]. 7PM-7AM: Page on-call JASEN through our answering service, . This note is dictated with the use of M*Modal. Please note that this dictation was completed with computer voice recognition software. Quite often unanticipated grammatical, syntax, homophones, and other interpretive errors are inadvertently transcribed by the computer software. Please disregard these errors. Please excuse any errors that have escaped final proofreading. James Wilson, [facility] 10/20/23 [id number] James Wilson, [facility] 10/20/23 1887 Attending Addendum: I Dr Tyree Crook, personally [...] plan as noted. documented in this encounter [facility] [employer] [facility] 10-20-2023 Plan of care note Problem: Pain Goal: Patient goal is pain score less than 4, able to rest, and participant in treatment plan as appropriate Description: INTERVENTIONS: 1. Encourage patient or legal promotional representative to report early pain and ask [...] per policy 9. Teach patient or legal promotional representative interventions for comforting Outcome: Progressing Note: [...] at the bedside 7. Instruct patient/ patient promotional representative about use of safety devices 8. Include patient/ patient promotional representative in decisions related to safety Outcome: Progressing Note: Evaluation of progress towards goal: Pt remains free from falls or accidental injury during stay. Fall prevention measures in place. Hourly rounding per RN and NA maintained. Problem: Knowledge Deficit Goal: Patient/patient promotional representative demonstrates understanding of disease process, treatment plan, medications, and discharge instructions Description: INTERVENTIONS 1. Complete learning assessment and assess knowledge base 2. Provide teaching at level of understanding 3. Provide teaching via preferred learning method(s) Outcome: Progressing Note: Evaluation of progress towards goal: POC discussed with patient. Questions answered PRN. [facility] 10-19-2023 Physician Emergency department Note Images from [...] ductal hyperplasia of left breast Myocardial infarction ([facility]) Diabetes mellitus type 2, controlled ([facility]) Adenomatous polyp of sigmoid colon Syncope and collapse Anxiety disorder, unspecified Coronary artery disease involving coronary bypass graft Chronic diastolic (congestive) heart failure ([facility]) Chronic narcotic use Cigarette nicotine dependence without complication Depression Dyslipidemia Essential hypertension Hypokalemia Primary malignant neuroendocrine neoplasm of small intestine ([facility]) Weakness Severe malnutrition ([facility]) Hypotension Colitis Electrolyte imbalance Acute respiratory failure with hypoxia ([facility]) Intussusception ([facility]) Past Medical History: Diagnosis Date Anxiety and depression 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 Breast lesion 2017 ATYPICAL HYPERPLASIA LEFT BREAST CAD (coronary artery disease) S/P OR WITH STENTS 03/2018 & 04/2018 Cancer ([facility]) CHF (congestive heart failure) ([facility]) Clotting disorder ([facility]) Diabetes mellitus ([facility]) DX 05/2017 Diabetes mellitus type 2, controlled ([facility]) Essential hypertension 08/28/2020 History of spleen injury spleen repair 1984 Insomnia Myocardial infarction ([facility]) 03/30/2018 Neuroendocrine cancer ([facility]) small bowel Neuropathy Peptic ulceration [...] 12/24/2018 Performed by Kalen Osborne MD at [facility] GAST[facility] 2020 HYSTERECTOMY 2003 COMPLETE LUMPECTOMY BREAST WITH NEEDLE LOCALIZATION FS Left 08/15/2017 Performed by Margarito Page DO at [facility] OOP[facility] Bilateral 2002 OTHER SURGICAL HISTORY [...] [EM] Tomy Gomez MD [RK] Ricci Aguirre, DIRECTOR FRAUD-HEALTH INFORMATION TECH Clinical Impressions as of 10/19/23 2340 COVID-19 Generalized weakness Hypokalemia [facility] Medical Decision Making 2054 Dr. Gomez achieved IV access via Ultrasound guided IV. Amount and/or Complexity of Data Reviewed Labs: ordered. Decision-making details documented in ED Course. Radiology: ordered. ECG/medicine tests: ordered. Risk Prescription drug management. Cheikh Chaudhry (magnusibsree) documented for Dr. Tomy Gomez MD who thoroughly reviewed, edited, and approved this for accuracy and completeness. [facility] Honey Montes is a 63 y.o. [...] Breast lesion, CAD (coronary artery disease), Cancer ([facility]), CHF (congestive heart failure) ([facility]), Clotting disorder ([facility]), Diabetes mellitus ([facility]), Diabetes mellitus type 2, controlled ([facility]), Essential hypertension, History of spleen injury, Insomnia, Myocardial infarction ([facility]), Neuroendocrine cancer ([facility]), Neuropathy, Peptic ulceration, Peripheral neuropathy, [...] Attending Physician Attestation No Additional Attestations [facility] 10/19/23 205 RITA Loja 10/19/23 214 RITA Loja 10/19/23 214 Tomy Gomez MD 10/20/[address] [facility] 10-19-2023 Emergency department Note Images from the [...] ductal hyperplasia of left breast Myocardial infarction ([facility]) Diabetes mellitus type 2, controlled ([facility]) Adenomatous polyp of sigmoid colon Syncope and collapse Anxiety disorder, unspecified Coronary artery disease involving coronary bypass graft Chronic diastolic (congestive) heart failure ([facility]) Chronic narcotic use Cigarette nicotine dependence without complication Depression Dyslipidemia Essential hypertension Hypokalemia Primary malignant neuroendocrine neoplasm of small intestine (CMS-HCC) Weakness Severe malnutrition ([facility]) Hypotension Colitis Electrolyte imbalance Acute respiratory failure with hypoxia (CMS-HCC) Intussusception ([facility]) Past Medical History: Diagnosis Date Anxiety and depression 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 Breast lesion 2017 ATYPICAL HYPERPLASIA LEFT BREAST CAD (coronary artery disease) S/P OR WITH STENTS 03/2018 & 04/2018 Cancer ([facility]) CHF (congestive heart failure) ([facility]) Clotting disorder ([facility]) Diabetes mellitus ([facility]) DX 05/2017 Diabetes mellitus type 2, controlled ([facility]) Essential hypertension 08/28/2020 History of spleen injury spleen repair 1984 Insomnia Myocardial infarction ([facility]) 03/30/2018 Neuroendocrine cancer ([facility]) small bowel Neuropathy Peptic ulceration [...] 12/24/2018 Performed by Kalen Osborne MD at [facility] GASTRECTOMY 2020 HYSTERECTOMY 2003 COMPLETE LUMPECTOMY BREAST WITH NEEDLE LOCALIZATION FS Left 08/15/2017 Performed by Margarito Page DO at [facility] OOPHORECTOM[facility] Bilateral 2002 OTHER SURGICAL HISTORY [...] [EM] Tomy Gomez MD [RK] Ricci Aguirre, DIRECTOR FRAUD-HEALTH INFORMATION TECH Clinical Impressions as of 10/19/23 234 COVID-19 Generalized weakness Hypokalemia [facility] Medical Decision Making 2054 Dr. Gomez achieved IV access via Ultrasound guided IV. Amount and/or Complexity of Data Reviewed Labs: ordered. Decision-making details documented in ED Course. Radiology: ordered. ECG/medicine tests: ordered. Risk Prescription drug management. Cheikh Chaudhry (scribe) documented for Dr. Tomy Gomez MD who thoroughly reviewed, edited, and approved this for accuracy and completeness. [facility] Honey Montes is a 63 y.o. [...] Breast lesion, CAD (coronary artery disease), Cancer ([facility]), CHF (congestive heart failure) ([facility]), Clotting disorder ([facility]), Diabetes mellitus ([facility]), Diabetes mellitus type 2, controlled ([facility]), Essential hypertension, History of spleen injury, Insomnia, Myocardial infarction ([facility]), Neuroendocrine cancer ([facility]), Neuropathy, Peptic ulceration, Peripheral neuropathy, [...] RITA Loja 10/19/232146 Tomy Gomez MD 10/20/23 9623 Patient presents via EMS with complaints of increased confusion and increased pain. Patient with a fall and fractured ribs from a fall. documented in this encounter [facility] 10-19-2023 Emergency department Triage note Patient presents via EMS with complaints of increased confusion and increased pain. Patient with a fall and fractured ribs from a fall. [facility] 07-14-2023 Miscellaneous Notes Spoke to patients daughter she is scheduled for 08/[address] [place]ch[place] [facility] Left message on voicemail for patient to call and schedule EGD Left message on voicemail for patient to call and schedule Please call patient at [phone] to set up an EGD. This is her daughters cell. Patient to see if she needs to stop Plavix, thank you! documented in this encounter [facility] 07-11-2023 Note HNO ID: [id number] Author: Rosana Mchugh MD Service: ? Author [...] 5:46 AM ED (more content not included)... [facility] 07-11-2023 Nurse Note What is the reason for your visit today? Abdominal pain Who is your referring physician? self Are you having poor oral intake? NO Have you had unintentional weight loss of 15 lbs/7 Kg in the last 3-6 months? NO Bowels: constipated Wound: Temperature: No Drains: No documented in this encounter [facility] 07-11-2023 History of Present illness Narrative [...] This office note has been created using [employer], a speech recognition software program, and may [...] colon Patient should take Movantik and other jxsm-lid-dneyjbi medications and try to have 1-2 bowel movements every day Rosana Mchugh MD documented in this encounter [facility] 06-15-2023 Note HNO ID: [id number] Author: Jr Sinha MD Service: ? Author Type: Physician Type: Progress Notes Filed: 06/16/2023 4:30 PM Note Text: Assessment ESTABLISHED PATIENT Honey Montes is a 63 year old female with chronic abdominal pain Hx: neuroendocrine tumor resection along with jejunojejunostomy 08/31/2020 s/p Exploratory laparotomy, lysis of adhesions, resection of proximal jejunum and partial resection of D4 with resection of mesenteric mass, End-to-side duodenojejunostomy, Bzvf-lp-xigb jejunojejunostomy, Resection of the jejunojejunostomy, Cholecystectomy. 01/13/2022 s/p marginal ulcer perforation repair Chart Review: -ER OSH for acute abdominal pain [facility] Discharge Summary 06/06/23 INTERVAL HPI: She was in the [facility] ER recently and underwent a CT scan [...] which included preparing to see the patient, [id number] patient care, completing clinical documentation, obtaining and/or reviewing separately obtained history, performing a medically appropriate examination, counseling and educating the patient/family/caregiver, ordering medications, tests, or procedures, communicating with other HCPs (not separately reported), independently interpreting results (not separately reported), communicating results to the patient/family/caregiver, and care coordination (not separately reported). Jr Sinha MD [facility] 06-15-2023 Instructions Angela Mccarthy RN - 06/15/2023 2:23 PM EDT To schedule x-ray, please call for imaging appointment. You can schedule at any [facility] facility using this appointment number. Your surgeon will determine follow up and plan of care after review of imaging. If you questions, please call our office at [phone]. documented in this encounter [facility] 06-15-2023 Nurse Note What is the reason for your visit today? Follow up Who is your referring physician? Are you having poor oral intake? NO Have you had unintentional weight loss of 15 lbs/7 Kg in the last 3-6 months? NO Bowels: constipated and diarrhea Wound: Temperature: No Drains: No documented in this encounter [facility] 06-15-2023 History of Present illness Narrative Images from the original note were not included. Assessment ESTABLISHED PATIENT Honey Montes is a 63 year old female with chronic abdominal pain Hx: neuroendocrine tumor resection along with jejunojejunostomy 08/31/2020 s/p Exploratory laparotomy, lysis of adhesions, resection of proximal jejunum and partial resection of D4 with resection of mesenteric mass, End-to-side duodenojejunostomy, Tpur-pv-lpme jejunojejunostomy, Resection of the jejunojejunostomy, Cholecystectomy. 01/13/2022 s/p marginal ulcer perforation repair Chart Review: -ER OSH for acute abdominal pain [facility] Discharge Summary 06/06/23 INTERVAL HPI: She was in the [facility] ER recently and underwent a CT scan [...] which included preparing to see the patient, [id number]-hr-[id number] patient care, completing clinical documentation, obtaining and/or reviewing separately obtained history, performing a medically appropriate examination, counseling and educating the patient/family/caregiver, ordering medications, tests, or procedures, communicating with other HCPs (not separately reported), independently interpreting results (not separately reported), communicating results to the patient/family/caregiver, and care coordination (not separately reported). Jr Sinha MD documented in this encounter [facility] 12-05-2022 Miscellaneous Notes Spoke with patient who states that her traffic signal repairer told her to reschedule this appointment. Patient has number to cancel/reschedule appointment. documented in this encounter [facility] 06-15-2022 History of Present illness Narrative [...] deltoids) Fluid Accumulation: No significant fluid accumulation [place] Strength: Not Performed Nutrition Assessment: Consulted for [...] Anthropometric Measures: Height: 5' 5 (165.1 cm) [place] Body Weight (IBW): 125 lbs (57 kg) [...] Used for Energy Requirements: Admission Energy (kcal/day): 2114-3683 kcals/day Weight Used for Protein Requirements: Admission [...] Weight Discharge Planning: Too soon to determine Milvia Frankel RD, ARACELI Contact: [phone] Physician Progress Note PATIENT: HONEY MONTES CSN #: [id number] : 1960 ADMIT DATE: 06/12/2022 11:07 PM [...] the following: Risk Factors: CAD, history of OR Clinical Indicators: admitted with atypical chest pain with angina/CAD. history of coronary artery stent. Per cardiac cath report on 06/14 noted in stent stenosis of mid RCA with successful POBA of mid RCA Treatment: Balloon angioplasty, cardiac cath, monitoring Thank You Camacho FERNANDEZ BSN CCDS Email [email or web address] office hours M-F 6am to 2:30pm Options [...] were not included. [facility] Office: [phone] Anival Baeza DO, Kelvin Khan DO, Jn Frederick DO, Kamlesh Oconnor DO, Apolinar Mirza MD, Nicky Carr MD, Laurie Erwin MD, Pascale Quinn MD, Jonathan Edmond MD, Darek Heaton MD, Jaleel Raya DO, Renee Upton MD, Praneeth Mata DO, Irina Mejia MD, Earl Ellis MD, Margarito Baeza DO, Kim Wooten MD, Owen Lin MD, Nadege Quan MD, Dayna Trinh MD, Clarissa Parra MD, Shatnelle Govea MD, Adrian Jeffries DO, Ophelia Cabrera MD, Deejay Pierre MD, Gloria Olivas, HEALTH INFORMATION TECH, Lynette Kaiser, HEALTH INFORMATION TECH, Godwin Johnson, HEALTH INFORMATION TECH, Víctor Hargrove, HEALTH INFORMATION TECH, Loki Wu PA-C, Shey Wallace, MAXIMILIANO, Re Ryan, HEALTH INFORMATION TECH, Antionette Giron, HEALTH INFORMATION TECH, Leticia Burgos, HEALTH INFORMATION TECH, Tootie Nam, HEALTH INFORMATION TECH, Domitila Umana, HEALTH INFORMATION TECH, Meme Mendoza, SPA DIRECTOR/FINANCE, Iris Zhang, MAXIMILIANO, Cleo Alonso, HEALTH INFORMATION TECH, Velma Hammer, HEALTH INFORMATION TECH, Jimena Bryant, HEALTH INFORMATION TECH [facility] IN-PATIENT SERVICE [facility] Progress Note 06/15/2022 11:06 AM Name: Honey Montes Acct: [id number] Room: IP Day: 3 Admit Date: 06/12/2022 11:07 PM PCP: Corina Cook Code Status: Full Code Subjective: C/C: Chest pain Interval History Status: improved Pt seen and examined at bedside. She feels much better today and is no longer having any pain No fevers, chills. Brief History: This is a 62-year-old female with a history of coronary disease s/p OR with drug-eluting stents, recent STEMI April 02 [...] (HCC), and STEMI (ST elevation myocardial infarction) ([facility]). Social History: reports that she [...] Dyslipidemia 06/13/2022 Yes Coronary artery disease involving [place] coronary artery with unstable angina pectoris (HCC) [...] the original note were not included. [employer] Progress Note Date: 06/15/2022 Patient name: Honey [...] is ruptured. Comments:instent restenosis. Devices used - [employer] Flex 180 cm. Number of passes: 1. [...] done by Dr. Guadalupe and one in [place] this May for 2 arteries and the third one to be done here as staged PCI, Hypertriglyceridemia Diabetes. Gastric ulcer, Neuroendocrine tumor of the small bowel s/p resection, Breast cancer, Subarachnoid hemorrhage, Patient Active Problem List: STEMI (ST elevation myocardial infarction) ([facility]) ST elevation (STEMI) myocardial infarction ([facility]) S/P cardiac cath (03/26/2018-Dr Guadalupe) Smoking addiction Type 2 diabetes mellitus, without long-term current use of insulin ([facility]) S/P drug eluting coronary stent placement - LCX 05/21/18 - Dr. guadalupe Hypokalemia Hyponatremia Alcohol intoxication (HCC) Subarachnoid hemorrhage (HCC) Lower abdominal pain Smoking Neuropathy History of heart artery stent Easy fatigability Chest pain History of GI bleed History of breast cancer HTN (hypertension) Dyslipidemia Unstable angina (HCC) Coronary artery disease involving [place] coronary artery with unstable angina pectoris (HCC) Chronic pain syndrome Constipation History of subarachnoid hemorrhage Chronic diastolic (congestive) heart failure (HCC) Plan of Treatment: CAD s/p successful POBA or mid RCA. Continue Plavix, ASA, CCB, statin, imdur, BB and nitro Keep K 4, Mg>2 Discussed smoking cessation No further workup from cardiology standpoint. Ok with d/c. Will follow up in 2 weeks [employer] [phone] Images from the original note were not included. [employer] Progress Note Date: 06/14/2022 Patient name: Honey [...] done by Dr. Guadalupe and one in [place] this May for 2 arteries and the third one to be done here as staged PCI, Hypertriglyceridemia Diabetes. Gastric ulcer, Neuroendocrine tumor of the small bowel s/p resection, Breast cancer, Subarachnoid hemorrhage, Patient Active Problem List: STEMI (ST elevation myocardial infarction) ([facility]) ST elevation (STEMI) myocardial infarction (HCC) S/P cardiac cath (03/26/2018-Dr Guadalupe) Smoking addiction Type 2 diabetes mellitus, without long-term current use of insulin ([facility]) S/P drug eluting coronary stent placement - LCX 05/21/18 - Dr. guadalupe Hypokalemia Hyponatremia Alcohol intoxication (HCC) Subarachnoid hemorrhage (HCC) Lower abdominal pain Smoking Neuropathy History of heart artery stent Easy fatigability Chest pain History of GI bleed History of breast cancer HTN (hypertension) Dyslipidemia Unstable angina (HCC) Coronary artery disease involving [place] coronary artery with unstable angina pectoris (HCC) Chronic pain syndrome Constipation History of subarachnoid hemorrhage Chronic diastolic (congestive) heart failure (HCC) Plan of Treatment: Plan for cardiac cath per Dr. Echevarria recommendation pending Hem/oc evaluation for thrombocytosis Continue -statin, imdur, BB and nitro Keep K 4, Mg>2 [employer] [facility]. [phone] Images from the original note were not included. [facility] Office: [phone] Anival Baeza DO, Kelvin Khan DO, nJ Frederick DO, Kamlesh Oconnor DO, Apolinar Mirza [...] Nam CNP, Domitila Umana CNP, Meme Mendoza SPA DIRECTOR/FINANCE, Iris Zhang, DNP, Cleo Alonso, HEALTH INFORMATION TECH, Velma Hammer, HEALTH INFORMATION TECH, Jimena Bryant, HEALTH INFORMATION TECH [facility] IN-PATIENT SERVICE [facility] Progress Note 06/14/2022 10:18 AM Name: Honey Montes Acct: [id number] Room: IP Day: 2 Admit Date: 06/12/2022 11:07 PM PCP: Corina Cook Code Status: Full Code Subjective: C/C: Chest pain Interval History Status: First time seeing patient. Pt seen and examined at bedside. She is having chest pain still. No fevers, chills. Repeat plt count Is normal x2 Brief History: This is a 62-year-old female with a history of coronary disease s/p OR with drug-eluting stents, recent STEMI April 02 [...] Neuropathy, and STEMI (ST elevation myocardial infarction) ([facility]). Social History: reports that she [...] Dyslipidemia 06/13/2022 Yes Coronary artery disease involving [place] coronary artery with unstable angina pectoris (HCC) [...] patient encourage cessation with history of recurrent OR History of peptic ulcer disease/recurrent GI bleed [...] 06/14/2022 10:18 AM SPIRITUAL CARE DEPARTMENT - [facility] PROGRESS NOTE Shift date: 06/13/2022 Shift day: Monday Shift # 3 Room # Name: Honey Montes Jainism: [facility] Place of yarsanism: [facility] [place] Referral: Routine Visit Admit Date & Time: 06/12/2022 11:07 PM Assessment: Honey Montes is a 62 y.o. female in the hospital because of Chest Pain. Upon entering the room keno writer observes patient resting in hospital bed, watching TV, with daughter resting on couch. Intervention: Weaving Professor introduced self and title as courtroom clerk. Patient shared that her symptoms come and go. Patient shared that she has already undergone six heart catheterizations, and had five stents placed. Patient indicated that she will be undergoing her seventh catheterization tomorrow. Patient and daughter were coping well and receptive of chaplains visit. Marine Structural Welder provided support and hospitality to patient and daughter. Outcome: Patient and daughter thanked courtroom clerk for visit. Plan: Chaplains will remain available to offer spiritual and emotional support as needed. 06/13/222122 Encounter Summary Service Provided For: Patient and family together Referral/Consult From: [employer] Spouse;Children;Family members Last Encounter 06/13/22 Complexity [...] (comment) (as needed) . Spiritual Care Department [facility] [phone] Images from the original note were not included. Attending Physician Statement I have discussed the care of Honey Montes, including pertinent history and exam findings, with the policy change clerk/resident. I have seen and examined the patient [...] RCA/LCx in 2017 followed by recent acute OR and PCI in [place] in february 2022 with residual stenosis, records [...] contrast induced allergy and/or nephropathy, arrythmia, CVA, OR or . The patient verbalized understanding and wishes to proceed. Lillie Echevarria MD, [facility], [facility] documented in this encounter [facility] [employer] Phone: 06-15-2022 Hospital Discharge instructions Praneeth Mata DO - 06/15/2022 11:20 AM EDT -Follow-up with your primary care physician within 1 week of discharge for reevaluation after hospitalization -Follow-up with traffic signal repairer in 2 weeks -Return to hospital if he develop any chest pain, shortness of breath, nausea, vomiting, diarrhea abdominal pain or if you are not feeling well -Continue take medication as prescribed documented in this encounter [facility] [employer] Phone: 06-15-2022 Hospital course Narrative Images from the original note were not included. [facility] Office: [phone] Anival Baeza DO, Kelvin Khan DO, Jn [...] Cabrera MD, Deejay Pierre MD, Gloria Olivas, HEALTH INFORMATION TECH, Lynette Kaiser, HEALTH INFORMATION TECH, Godwin Johnson, HEALTH INFORMATION TECH, Víctor Hargrove, HEALTH INFORMATION TECH, BEBE Baldwin-Jolene, Shey Wallace, [facility], Re Ryan, HEALTH INFORMATION TECH, Antionette Giron, HEALTH INFORMATION TECH, Leticia Burgos, [facility], Tootie Nam, [facility], Domitila Umana, [facility], Meme Mendoza, [facility], Iris Zhang, [facility], Cleo Alonso, [facility], Velma Hammer, 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 * Admission Condition: serious Discharged Condition: stable Hospital Stay: Hospital Course: Honey Montes is a 62-year-old female with a history of coronary disease s/p OR with drug-eluting stents, recent STEMI April 02 [...] and benefits, patient was brought to the mason tender restoration labor. The access area was prepped and draped [...] is ruptured. Comments:instent restenosis. Devices used - [employer] Flex 180 cm. Number of passes: 1. [...] Home Physician Follow [place]: [place] [id number] [place] [id number] Follow up on 06/24/2022 at 8:[address] [place] [id number] Schedule an appointment as soon as possible for a visit in 3 day(s) Hospital follow up Requiring Further Evaluation/Follow Up POST HOSPITALIZATION/Incidental Findings: -Follow-up with your primary care physician within 1 week of discharge for reevaluation after hospitalization -Follow-up with traffic signal repairer in 2 weeks -Return to hospital if [...] Your Medications These medications were sent to [facility] [place] - [address] [facility] - P [phone] - F [phone] [place], [place] [address] [address] amLODIPine 5 MG tablet metoprolol tartrate 25 [...] patient's care. documented in this encounter [facility] [employer] Phone: 06-11-2022 Hospital Discharge instructions Rafaela Rollins [...] attachments cannot be sent through Care Everywhere.Angina (Georgian)documented in this encounter [facility] [employer] Phone: 06-11-2022 History of Present illness Narrative Patient states her name is wrong and it is not her maiden name but her former name. Registration notified and is going to busy [facility], house sup rin aware of wrong name. Will continue to monitor registration for name change. Report called from ed spoke with Kvng brewster, expressed concerns with kvng brewster that Trops are trending upward from 9 to 10 and blood sugar 43. Weaving Professor asked kvng brewster to reassess patient and ask if its ok for patient in come to unit with troponin's still trending up wards and bs at 47 documented in this encounter [facility] [employer] Phone: 04-28-2022 Nurse Note What is the reason for your visit today? Follow up Who is your referring physician? Are you having poor oral intake? NO Have you had unintentional weight loss of 15 lbs/7 Kg in the last 3-6 months? NO Bowels: constipated Wound: Temperature: No Drains: No documented in this encounter [facility] 04-28-2022 History of Present illness Narrative Assessment ESTABLISHED PATIENT Honey Montes is a 61 year old female with history of neuroendocrine tumor resection along with jejunojejunostomy. 08/31/2020 s/p Exploratory laparotomy, lysis of adhesions, resection of proximal jejunumand partial resection of D4 with resection of mesenteric mass, End-to-side duodenojejunostomy, Xvqg-eq-llly jejunojejunostomy, Resection of the jejunojejunostomy, Cholecystectomy. 01/13/2022: [...] View External Imaging - CT Scan [ID [id number]] PHYSICAL EXAMINATION: BP: 119/52 BMI: 17.4 General [...] past. She had a recent operation in [place] for a perforated marginal ulcer. Her GJ [...] Jr Sinha MD documented in this encounter [facility] 04-06-2022 Miscellaneous Notes Patient's daughter called. Rescheduled appointment for April [address] Sinha. Olga Parsons Pss Patient's daughter Lucero called in and would like to make an appointment to see Dr. Sinha. Patient was in [place] and just returned home. Patient had surgery with Dr. Sinha back in Aug 2020. Daughter's contact# is [phone] documented in this encounter [facility] 02-07-2022 Miscellaneous Notes Images from the original note were not included. Jr Sinha MD You 3 days ago Thank you. She needs to completely her care in [place] given perforated viscus Message text Records have been downloaded from Care Everywhere. Hospital: [facility] CT Ab/Pelvis 01/13/2022 IMPRESSION: 1. Small pneumoperitoneum [...] emergent issue that was surgically repaired in [facility]; no urgent need to see Dr. Sinha as this is not cancer related; continue care with surgeon while in [place]; follow recommendation for GI consult and pain managment Patient currently in [place]. Was seen in hospital for perforated ulcer and had CT scan and labs drawn. Calling because she has pain from her incision to the left side. CT scan showed adhesions wrapped around small intestine. I requested CT scan and report from [facility] in [place], [place]. Faxed request to [phone]. Asking for an appointment with Dr. Bharath TREJO.Will schedule her when we receive the images. Olga Parsons Pss documented in this encounter [facility] 02-04-2022 Miscellaneous Notes Patient has seen [...] with Dr. Dutton. documented in this encounter [facility] 09-13-2020 Note HNO ID: [id number] Author: Mahamed Jiang (Jae Perez MD Service: [...] Rigid and rebound tenderness present. Incision c/d/i. SPA DIRECTOR/FINANCE: Alert, orientedx3, No sensory or motor deficits [...] Date 09/12/20 0700 - 09/13/20 0659 Shift 4163-9990 4067-8471 9211-0844 24 Hour Total INTAKE Shift Total OUTPUT [...] AM For team paging 6AM-6PM during weekdays: [phone] for [facility] (Joaquina Sinha Pratt). For team paging after 6PM or on weekend / holidays: [phone] for General Surgery [facility] 09-12-2020 Note HNO ID: [id number] Author: Loki Fernandez Service: General Surgery Author [...] Rigid and rebound tenderness present. Incision c/d/i. SPA DIRECTOR/FINANCE: Alert, oriented *3, No sensory or motor [...] Date 09/12/20 0700 - 09/13/20 0659 Shift 3133-1782 2426-1231 3639-7555 24 Hour Total INTAKE Shift Total OUTPUT [...] Min Lundberg General Surgery, PGY-2 Contact pager/cell: [phone] ? For team paging 6AM-6PM during weekdays: [phone] for [place] [facility] (Joaquina Sinha Pratt). For team paging after 6PM or on weekend / holidays: [phone] for General Surgery I saw and evaluated [...] Fernandez MD September 12, 2020 12:39 PM [facility] 09-12-2020 Note HNO ID: [id number] Author: Wally Hayes Service: General Surgery Author Type: Resident Type: Progress Notes Filed: 09/12/2020 5:15 AM Note Text: SERIAL ABDOMINAL EXAMS Honey Montes [id number] 09/12/2020 0205 - Patient was found asleep. [...] 12, 2020 TIME: 1:50 AM PAGER/CONTACT #: [facility] 09-04-2020 Note HNO ID: [id number] Author: Jr Sinha Service: General Surgery Author [...] dry and intact without erythema or drainage SPA DIRECTOR/FINANCE: Alert, oriented x3, No sensory or motor [...] Date 09/04/20 0700 - 09/05/20 0659 Shift 3924-0633 1548-7638 1596-2577 24 Hour Total INTAKE PO 240 240 [...] cholecystectomy?for neuroendocrine tumor 08/31/2020. Neuro/Pain: PVNBs and FIELD SALES CONSULTANT both discontinued, started PO pain regimen - [...] PM For team paging 6AM-6PM during weekdays: [phone] for [facility] (Joaquina Sinha Pratt). For team paging after 6PM or on weekend / holidays: [phone] for General Surgery [facility] 09-04-2020 Note HNO ID: [id number] Author: Dorcas Gregory RN Service: Care Management Author Type: Registered Nurse Type: Care Mgt Progress Note Filed: 09/04/2020 4:07 PM Note Text: CARE MANAGEMENT PROGRESS NOTE SERVICE DATE: 09/04/2020 SERVICE TIME: 11:03 AM LOS: 4 days this CM met with the pt at the bedside to review dc planning needs for HHC. The pt is accepted by [facility] for [facility] for PT/OT. The pt is asking for a Home Care Nurse. A message was sent to Dr Earl Loo to include SN in the HHC order. [facility] was updated that dc may be tomorrow or Monday, pending the patient's progress. per discussion with the bedside RNPhilly, the CARLTON drain will likely be removed and there will be no wound care needs. The pt does not want PT OT at home. Her daughter is staying with her. [facility] was updated. 4:07 PM The Pt has dc order, she declines [facility] for PT OT and she has no SN, HHC needs. [facility] was notified. SIGNATURE: Dorcas Gregory RN,BSN PATIENT NAME: Honey Montes DATE: September 04, 2020 TIME: 11:03 AM PAGER/CONTACT #: [phone] [facility] 09-03-2020 Note HNO ID: [id number] Author: Earl Loo Service: General Surgery Author Type: Resident Type: Progress Notes Filed: 09/03/2020 8:09 AM Note Text: . GENERAL SURGERY PROGRESS NOTE NAME: Honey Montes 09/03/2020 5:38 AM Subjective: Interval events: - Pain well-controlled with fentanyl FIELD SALES CONSULTANT; has bilateral paravertebral nerve block w/ indwelling catheters; pain management on board and will consider transition from FIELD SALES CONSULTANT to PO today - DC'd NGT; no [...] doing well. Expected post op course. - SPA DIRECTOR/FINANCE/pain: APMS following PVNB w/ indwelling catheter. Tylenol PO q6 and fentanyl FIELD SALES CONSULTANT for pain control. Per APMS, will transition from FIELD SALES CONSULTANT to PO as tolerated. Appreciate APTN recs. - RS/CVS: incentive spirometry, on room air. - FEN/GI: Diet: Advance to FLD + supplements; Replete lytes prn; Pepcid BID. - Renal: Strict I/Os. - Endo: Monitor glucose, ISS-1 - Lines/Drains: CARLTON in LLQ - ss - OOB, ambulate as able - SCDs for DVT prophylaxis Plan of care to be discussed with Surgery Staff Dr. [place]. [place] [id number] September 03, 2020 5:34 AM RESIDENT - ASSESSMENT AND PLAN: Patient seen and examined with MS Agree with assessment and plan above, changes made in italics Earl Loo MD General Surgery For any questions please contact Surgery [facility] [phone] weekdays. Or [phone] weeknights (6pm - 6am) and weekends. Date: 09/03/2020 Time: 8:08 AM [facility] 09-02-2020 Note HNO ID: [id number] Author: Min Bone (Res) MD Eduardo Service: General Surgery Author Type: Resident Type: Progress Notes Filed: 09/02/2020 11:22 AM Note Text: . GENERAL SURGERY PROGRESS NOTE NAME: Honey Montes 09/02/2020 10:41 AM Subjective: Interval events: - Switched from dilaudid to fentanyl FIELD SALES CONSULTANT yesterday due to difficult managing pain. Pain [...] Overall doing well. Pain improved with fentanyl FIELD SALES CONSULTANT. Expected post op course. - SPA DIRECTOR/FINANCE/pain: APMS following PVNB w/ indwelling catheter. Tylenol PO q6 and fentanyl FIELD SALES CONSULTANT for pain control. Will wean down on [...] Surgery Staff Dr. Sinha. [place], [place] [id number] September 02, 2020 10:43 AM For team paging 6AM-6PM during weekdays: [phone] for [place] [facility] (Joaquina Sinha Pratt). For team paging after 6PM or on weekend / holidays: [phone] for General Surgery I have personally examined the patient, performed an interval history and physical exam, and have edited the above note. Min Clark MD 11:21 AM [facility] 09-01-2020 Note HNO ID: [id number] Author: Min Bone (Res) MD Eduardo Service: [...] doing well, expected post op course - SPA DIRECTOR/FINANCE/pain: APMS following PVNB w/ indwelling catheter. Tylenol and Dilaudid IV prn available for pain control. Dilaudid FIELD SALES CONSULTANT added for pain control. - RS/CVS : [...] Min Clark General Surgery, PGY-2 Contact pager/cell: [phone] ? For team paging 6AM-6PM during weekdays: [phone] for [place] [facility] (Joaquina Sinha Pratt). For team paging after 6PM or on weekend / holidays: [phone] for General Surgery [facility] 09-01-2020 Note HNO ID: [id number] Author: Min Bone (Res) MD Eduardo Service: General Surgery Author Type: Resident Type: Progress Notes Filed: 08/31/2020 10:56 PM Note Text: Surgery Post-Op Check Honey Montes 60 year old female [id number] August 31, 2020 Subjective: No complaints, pain [...] doing well, expected post op course - SPA DIRECTOR/FINANCE/pain: APMS following PVNB w/ indwelling catheter. Tylenol [...] reactive leukocytosis. Hb stable. ? [facility], PGY-2 Contact pager/cell: [phone] ? For team paging 6AM-6PM during weekdays: [phone] for [place] [facility] (Joaquina Sinha Pratt). For team paging after 6PM or on weekend / holidays: [phone] for General Surgery [facility] 08-31-2020 Note HNO ID: [id number] Author: Aminata Terrazas Service: ? Author Type: Nurse Urban Gardening Specialist Type: Anesthesia Procedure Notes Filed: 08/31/2020 6:46 PM Note Text: ANESTHESIOLOGY PROCEDURE NOTE Gastric Tube General Information Procedure Start Time/Medication Administration: 08/31/2020 6:40 PM Patient location during procedure: OR Staffing Anesthesiologist: Tomy Cabrera STEAM AND POWER SUPERINTENDENT: Aminata Terrazas Performed by: RACHEL Procedure Details Type: Nasogastric tube Cortrak monitor used: No Size: 18 Fr cm Distance Advanced: 60 cm Securement: taped to the nose Successful Placement: yes Post-Procedure Details Patient tolerated the procedure well with no immediate complications SIGNATURE: Aminata Terrazas APRN.CRNA PATIENT NAME: Honey Montes DATE: August 31, 2020 TIME: 6:45 PM CSN: [id number] [facility] 08-31-2020 Note HNO ID: [id number] Author: Elizabeth Castro Service: ? Author Type: Nurse Urban Gardening Specialist Type: Anesthesia Procedure Notes Filed: 08/31/2020 2:54 PM Note Text: ANESTHESIOLOGY PROCEDURE NOTE PIV General Information Procedure Start Time/Medication Administration: 08/31/2020 2:30 PM Patient Location: OR Staffing Anesthesiologist: Ld Emmanuel MD STEAM AND POWER SUPERINTENDENT: Elizabeth Castro Performed by: RACHEL Preparation Sterility [...] August 31, 2020 TIME: 2:54 PM CSN: [id number] [facility] 08-31-2020 Note HNO ID: [id number] Author: Elizabeth Castro Service: ? Author Type: Nurse Urban Gardening Specialist Type: Anesthesia Procedure Notes Filed: 08/31/2020 2:54 PM Note Text: ANESTHESIOLOGY PROCEDURE NOTE Airway General Information Procedure Start Time/Medication Administration: 08/31/2020 2:23 PM Patient location during procedure: OR Timeout Performed Pre-procedure: timeout performed Consent Obtained: Yes Patient identity confirmed: arm band and patient Staffing Anesthesiologist: Ld Emmanuel MD STEAM AND POWER SUPERINTENDENT: Elizabeth Castro Performed by: anesthesiologist and other [...] GLIDESCOPE. SAT 100% CONTINUOUSLY. SIGNATURE: Elizabeth Castro, HALI.STEAM AND POWER SUPERINTENDENT PATIENT NAME: Honey Montes DATE: August 31, 2020 TIME: 2:49 PM CSN: [id number] [facility] 08-31-2020 Note HNO ID: [id number] Author: Sahil Navarro Service: ? Author Type: Anesthesiologist Type: Anesthesia Procedure Notes Filed: 08/31/2020 1:47 PM Note Text: ANESTHESIOLOGY PROCEDURE NOTE Peripheral Nerve Block General Information Procedure Start Time/Medication Administration: 08/31/2020 1:09 PM Procedure End time: 08/31/2020 1:28 PM Patient location during procedure: pre-op Timeout Performed Pre-procedure: timeout performed Consent Obtained: Yes Patient identity confirmed: arm band, patient and care count team clerk Reason for block: post-op pain management/at surgeon's [...] August 31, 2020 TIME: 1:45 PM CSN: [id number] [facility] 08-31-2020 History of Past i llness Narrative Problem Noted Date Resolved Date 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 History of bariatric surgery 04/20/2020 Gastrointestinal hemorrhage, unspecified 020 09/13/2020 Last Assessment & Plan: Assessment: Had in the past, monitored per PCP documented as of this encounter (statuses as of 02/02/2022) [address]16-2020 History of Past illness Narrative* Problem Noted Date Resolved Date 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 History of bariatric surgery 04/20/2020 Gastrointestinal hemorrhage, unspecified 07/04/2 020 09/13/2020 Last Assessment & Plan: Assessment: Had in the past, monitored per PCP documented as of this encounter (statuses as of 02/04/2022) [facility]-16-2020 History of Past illness Narrative* Problem Noted Date Resolved Date 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 History of bariatric surgery 04/20/2020 Gastrointestinal hemorrhage, unspecified 07/04/2 020 09/13/2020 Last Assessment & Plan: Assessment: Had in the past, monitored per PCP documented as of this encounter (statuses as of 02/07/2022) [address]16-2020 History of Past illness Narrative* Problem Noted Date Resolved Date 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 History of bariatric surgery 04/20/2020 Gastrointestinal hemorrhage, unspecified 07/04/2 020 09/13/2020 Last Assessment & Plan: Assessment: Had in the past, monitored per PCP documented as of this encounter (statuses as of 04/06/2022) [address]16-2020 History of Past illness Narrative* Problem Noted Date Resolved Date 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 History of bariatric surgery 04/20/2020 Gastrointestinal hemorrhage, unspecified 07/04/2 020 09/13/2020 Last Assessment & Plan: Assessment: Had in the past, monitored per PCP documented as of this encounter (statuses as of 2022) [address]16-2020 History of Past illness Narrative* Problem Noted Date Resolved Date 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 History of bariatric surgery 04/20/2020 Gastrointestinal hemorrhage, unspecified 07/04/2 020 09/13/2020 Last Assessment & Plan: Assessment: Had in the past, monitored per PCP documented as of this encounter (statuses as of 12/05/2022) [facility]2020 History of Past illness Narrative* Problem Noted Date Diagnosed Date Resolved Date Small bowel cancer 08/31/2020 0 History of bariatric surgery 04/20/2020 05/28/2020 Gastrointestinal hemorrhage, unspecified 04/18/2020 09/13/2020 Last Assessment & Plan: Assessment: Had in the past, monitored per PCP documented as of this encounter (statuses as of 06/17/2023) [facility] History of Past illness Narrative* Problem Noted Date Diagnosed Date Resolved Date Small bowel cancer 08/31/2020 0 History of bariatric surgery 04/20/2020 05/28/2020 Gastrointestinal hemorrhage, unspecified 04/18/2020 09/13/2020 Last Assessment & Plan: Assessment: Had in the past, monitored per PCP documented as of this encounter (statuses as of 07/12/2023) [place] [address]16-2020 History of Past illness Narrative* Problem Noted Date Diagnosed Date Resolved Date Small bowel cancer 08/31/2020 0 History of bariatric surgery 04/20/2020 05/28/2020 Gastrointestinal hemorrhage, unspecified 04/18/2020 09/13/2020 Last Assessment & Plan: Assessment: Had in the past, monitored per PCP documented as of this encounter (statuses as of 08/08/2023) [facility] Special screening for malignant neoplasms, colon- Primary [facility] Diagnosis Easy fatigability- Primary Other malaise and fatigue General weakness Other malaise and fatigue documented in this encounter [employer] Phone: evaluation note* Diagnosis 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, unspecified portion Perforated ulcer (HCC) Chronic or unspecified peptic ulcer, unspecified site, with perforation, without mention of obstruction [facility] Diagnosis Chest pain, unspecified type documented in this encounter [employer] Phone: evaluation note* Diagnosis Chest pain- Primary Chest pain, unspecified Type 2 diabetes mellitus, without long-term current use of insulin (HCC) Smoking Tobacco use disorder History of GI bleed Personal history of other diseases of digestive system History of breast cancer Personal history of malignant neoplasm of breast HTN (hypertension) Unspecified essential hypertension Dyslipidemia Other and unspecified hyperlipidemia Coronary artery disease involving [place] coronary artery with unstable angina pectoris (HCC) Chronic pain syndrome Constipation Unspecified constipation History of subarachnoid hemorrhage Personal history of other diseases of circulatory system Chronic diastolic (congestive) heart failure (HCC) Thrombocytosis Essential thrombocythemia 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) Underweight documented in this encounter [employer] Phone: evaluation note* Diagnosis 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, unspecified portion [facility] noteNo assessment information availableGreen [facility] Work Phone: Evaluation note* Diagnosis Abdominal distension- Primary Flatulence, eructation, and gas pain History of partial gastrectomy Gastric ulcer with perforation, unspecified chronicity (HCC) Hx of cholecystectomy Other acquired absence of organ Narcotic bowel syndrome (HCC) documented [facility]* Diagnosis COVID-19- Primary COVID-19 Generalized weakness Hypokalemia Hypopotassemia Diabetes mellitus type 2, controlled ([facility]-HCC) Type II or unspecified type diabetes mellitus without mention of complication, not stated as uncontrolled Dyslipidemia Other and unspecified hyperlipidemia Essential hypertension Unspecified essential hypertension Hypokalemia Hypopotassemia Severe malnutrition (CMS-HCC) Nutritional marasmus Generalized weakness Anxiety disorder, unspecified Chronic diastolic (congestive) heart failure (CMS-HCC) Smoker Tobacco use disorder [facility]* Attachments The following attachments cannot be sent through Care Everywhere. * Rib Fracture Discharge Instructions (Georgian) * COVID-19 Discharge Instructions (Georgian) [facility] for [facility] (narrative)* Diagnostic Procedure Only (Routine) - Pending Review Specialty Diagnoses / Procedures Referred By Contac t Referred To Contact XR IMAGING Diagnoses Neuroendocrine carcinoma of small bowel (HCC) Procedures XR GI SMALL BOWEL FOLLOW-THRU RADIOLOGIC SMALL INTESTINE [place] [address] [address] [address] [place] [address] Referral ID Status Reason Start Date Expiration Date Visits Requested Visits Authorized [id number] Pending Review Auto-Generat ed Referral 06/15/2023 07/14/2024 1 1 * Diagnostic Procedure Only (Routine) - Pending Review Specialty Diagnoses / Procedures Referred By Contac t Referred To Contact XR IMAGING Diagnoses Neuroendocrine carcinoma of small bowel (HCC) Procedures XR UPPER GI SINGLE CONTRAST RADIOLOGIC EXAM UPR GI [place] [address] [place] [id number] [place] [address] Referral ID Status Reason Start Date Expiration Date Visits Requested Visits Authorized [id number] Pending Review Auto-Generat ed Referral 06/15/2023 07/14/2024 1 1 [facility] Outpatient Procedure (Routine) - Pending Review Specialty Diagnoses / Procedures [facility] Diagnoses Abdominal distension History of partial gastrectomy Gastric ulcer with perforation, unspecified chronicity (HCC) Hx of cholecystectomy Procedures EGD DIAGNOSTIC ESOPHAGOGASTRODUODENOSCOPY [place] [address] [place] [address] [facility] [address] [place] [address] Referral ID Status Reason Start Date Expiration Date Visits Requested Visits Authorized [id number] Pending Review Auto-Generat ed Referral 07/11/2023 07/11/2024 1 1 [facility] Summary Purpose Family History No Family History Records FoundNo Family History Records FoundNo Family History Records FoundNo Family History Records FoundNo Family History Records FoundNo Family History Records FoundNo Family History Records FoundNo Family History Records Found Advance Directives No Advanced Directives Records FoundDocuments on File Type Date Recorded Patient Certified Home Health Aide Expl anation Advance Directive(s) 11/30/2020 3:58 PM Advance Directive(s) 09/11/2020 7:49 PM Advance Directive(s) 08/22/2020 6:32 PM Advance Directive(s) 07/13/2020 5:54 AM Advance Directive(s) 07/08/2020 7:52 AM Documents on File Type Date Recorded Patient Certified Home Health Aide Expl anation ACP-Advance Directive ACP-Power of Community Marketing Manager Latest Code Status on File Code Status Date Activated Date Inactivated Comments Full Code 04/26/2022 12:14 AM Full Code 04/18/2020 6:45 PM 04/23/2020 5:45 PM Full Code 09/30/2018 7:09 AM 10/01/2018 5:32 PM Full Code 05/21/2018 9:35 AM 05/22/2018 2:51 AM Full Code 05/21/2018 8:34 AM 05/21/2018 9:35 AM Documents on File Type Date Recorded Patient Certified Home Health Aide Expl anation Advance Directive(s) 11/30/2020 3:58 PM [...] IVCON CT ABD & PEL[place] [address] [address] [facility] [address] [place] [address] Ct Imaging Referral ID Status Reason Start Date Expiration Date Visits Requested Visits Authorized [id number] Authorized Auto-Generat ed Referral 04/28/2022 05/28/2023 1 1 Chief Complaint and Reason for Visit Chief Complaint [id number] Additional Source Comments INFORMATION SOURCE (unrecogn ized section and content) DATE CREATED AUTHOR 04/14/2021 [facility] DATE CREATED AUTHOR AUTHOR'S ORGANIZ ATION 06/15/2022 [facility] DATE CREATED AUTHOR AUTHOR'S ORGANIZ ATION 06/16/2022 [facility] DATE CREATED AUTHOR AUTHOR'S ORGANIZ ATION 09/19/2022 [facility] DATE CREATED AUTHOR AUTHOR'S ORGANIZ ATION 07/05/2023 [facility] DATE CREATED AUTHOR AUTHOR'S ORGANIZ ATION 09/02/2023 [facility] DATE CREATED AUTHOR AUTHOR'S ORGANIZ ATION 09/14/2023 [facility] DATE CREATED AUTHOR AUTHOR'S ORGANIZ ATION 10/29/2023 [facility] Source Comments (unrecognize d section and content) In the event this informatio n is protected by the Federal Confidentiality of Alcohol and Drug Abuse Patient Records regulations: The Federal rules restrict any use of the information to criminally investigate or prosecute any alcohol or drug abuse patient.[facility] the event this information is protected by the Federal Confidentiality of Alcohol and Drug Abuse Patient Records regulations: The Federal rules restrict any use of the information to criminally investigate or prosecute any alcohol or drug abuse patient.[facility] the event this information is protected by the Federal Confidentiality of Alcohol and Drug Abuse Patient Records regulations: The Federal rules restrict any use of the information to criminally investigate or prosecute any alcohol or drug abuse patient.[facility] the event this information is protected by the Federal Confidentiality of Alcohol and Drug Abuse Patient Records regulations: The Federal rules restrict any use of the information to criminally investigate or prosecute any alcohol or drug abuse patient.[facility] the event this information is protected by the Federal Confidentiality of Alcohol and Drug Abuse Patient Records regulations: The Federal rules restrict any use of the information to criminally investigate or prosecute any alcohol or drug abuse patient.[facility] the event this information is protected by the Federal Confidentiality of Alcohol and Drug Abuse Patient Records regulations: The Federal rules restrict any use of the information to criminally investigate or prosecute any alcohol or drug abuse patient.[facility] the event this information is protected by the Federal Confidentiality of Alcohol and Drug Abuse Patient Records regulations: The Federal rules restrict any use of the information to criminally investigate or prosecute any alcohol or drug abuse patient.[facility] the event this information is protected by the Federal Confidentiality of Alcohol and Drug Abuse Patient Records regulations: The Federal rules restrict any use of the information to criminally investigate or prosecute any alcohol or drug abuse patient.[facility] the event this information is protected by the Federal Confidentiality of Alcohol and Drug Abuse Patient Records regulations: The Federal rules restrict any use of the information to criminally investigate or prosecute any alcohol or drug abuse patient.[facility] Care Teams (unrecognized sec tion and content) Air Analysis Technician Relationship Specialty Start Date End Date Corina Cook MD [address] [place] [phone] PCP - General Family Practice 11/30/20 Air Analysis Technician Relationship Specialty Start Date End Date Corina Cook MD [address] [place] [phone] PCP - General Family Practice 11/30/20 Air Analysis Technician Relationship Specialty Start Date End Date Corina Cook MD [address] [place] [phone] PCP - General Family Practice 11/30/20 Air Analysis Technician Relationship Specialty Start Date End Date Corina Cook [address] [place] [id number] PCP - General Family Medicine 03/26/18 Air Analysis Technician Relationship Specialty Start Date End Date Corina Cook MD [address] [place] [phone] PCP - General Family Practice 11/30/20 Air Analysis Technician Relationship Specialty Start Date End Date Corina Cook [address] [place] [phone] PCP - General Family Medicine 06/10/22 Air Analysis Technician Relationship Specialty Start Date End Date Corina Cook [address] [place] [id number] PCP - General Family Medicine 03/26/18 Air Analysis Technician Relationship Specialty Start Date End Date Corina Cook MD [address] [phone] PCP - General Family Medicine 11/30/20 Air Analysis Technician Relationship Specialty Start Date End Date Corina Cook MD [address] [phone] PCP - General Family Medicine 11/30/20 Team Status: Active Member Role Status Dates NON STAFF Primary Care Provider Active Team Status: Inactive Member Role Status Dates Jr Sinha MD Attending Provider Active NON STAFF Primary Care Provider Active Air Analysis Technician Relationship Specialty Start Date End Date Corina Cook MD [address] [id number] PCP - General Family Medicine 11/30/20 Air Analysis Technician Relationship Specialty Start Date End Date Corina Cook MD [address] [phone] PCP - General Family Medicine 11/30/20 Air Analysis Technician Relationship Specialty Start Date End Date Corina Cook MD [address] [phone] PCP - General Family Medicine 08/25/22 Reason for Visit (unrecogniz ed section and content) Reason Comments incorrectly scheduled Reason Comments Patient Update Reason Comments Patient Question Reason Comments Fatigue Palpitations hx stents one month ago Dizziness Reason Comments Established Patient Reason Comments Chest Pain Specialty Diagnoses / Procedures Referred By Contac t Referred To Contact [facility] [address] [place] [address] Referral ID Status Reason Start Date Expiration Date Visits Re quested Visits Authorized [id number] 1 1 Reason Comments Education Of Patient/family Reason Comments Established Patient Reason Comments Abdominal Pain Reason Comments Medical Screening Specialty Diagnoses / Procedures Referred By Contac t Referred To Contact Diagnoses Hypokalemia Weakness Generalized weakness COVID-19 Tyree Crook MD [address], [facility] [address] [place] [address] Referral ID Status Reason Start Date Expiration Date Visits Re quested Visits Authorized [id number] 1 1 Scheduled Active and Recently Administ [...] bedtime. 1034 (Given - Provid er: Luciana Nickersno RN - Comment: NPO)1400 (Due)2100 (Due) morphine [...] Reason: Other)0856 (Given - Provider: Eileen Hinton RN)2004 (Given - Provider: Tanja Adamson, [...] 0020 (Continue to Inpatient Floor - Provider: mUm Gong RN)0100 (Restarted - Provider: Mena Dyer [...] THE PRIMARY CLINICAL RECORDS. [facility]. provides no warranty or guarantee of the accuracy or completeness of information in this document.
--- NOTE | 2023-11-09 01:10 | PC.NURSE ---
Patient now at bedside. Patient continues to be somewhat confused, saying things that neither her nor myself can comprehend. She remains on vapotherm at this time, vitals are remaining WNL. She is able to rest more easily now that Spo2 is staying up. Will continue to monitor
[2023-11-09] MEDS: ACETAMINOPHEN 325 MG TABLET 650 MG PO ×2 (04:31→13:11)
[2023-11-09 04:34] LABS: pH VBG 7.461 (7.330-7.430)
[2023-11-09 04:35] LABS: PCO2 VBG 31.6 mmHg (40.0-52.0)
[2023-11-09 04:44] LABS: Basophils Percent Auto 0.3 % (0.2-2.0); Eosinophils Absolute Auto 0.1 10^3/uL (0.0-0.7); Eosinophils Percent Auto 0.8 % (0.9-7.0); Hematocrit 32.9 % (36.0-48.0); Hemoglobin 9.7 g/dL (12.0-16.0); Immature Granulocytes Abs Auto 0.04 10^3/uL (0.00-0.03); Immature Granulocytes Pct Auto 0.3 % (0.0-0.5); Lymphocytes Absolute Auto 3.2 10^3/uL (1.2-3.8); Lymphocytes Percent Auto 20.8 % (20.5-60.0); Mean Corpuscular HGB Conc 29.5 g/dL (29.9-35.2); Mean Corpuscular Volume 95.1 fL (81.0-99.0); Mean Platelet Volume 10.3 fL (9.5-13.5); Monocytes Percent Auto 6.7 % (1.7-12.0); Neutrophils Percent Auto 71.1 % (43.0-75.0); Platelet Count 290 10^3/uL (150-450); Red Blood Count 3.46 10^6/uL (4.20-5.40); Red Cell Distribution Width 17.2 % (11.0-15.0); White Blood Count 15.4 10^3/uL (4.0-11.0)
[2023-11-09 04:51] LABS: Anion Gap 15.6; BUN Creatinine Ratio 6.9; Calcium 7.7 mg/dL (8.5-10.1); Carbon Dioxide 21.9 mmol/L (21.0-32.0); Chloride 107 mmol/L (98-107); Estimated GFR (African America >60 (>=60); Estimated GFR (Non-African Ame >60 (>=60); Glucose 74 mg/dL (74-106); Potassium 3.5 mmol/L (3.5-5.1); Sodium 141 mmol/L (136-145)
[2023-11-09 07:43] LABS: Glucometer 89 mg/dL (74-106)
[2023-11-09 08:11] LABS: Magnesium 1.5 mg/dL (1.8-2.4)
--- NOTE | 2023-11-09 08:35 | CA_ITS ---
Patient Name: HONEY MONTES MR#: [id number] : 1960 Exam Date: 11/09/2023 Ordering Doctor: DR ANALY HAMMONDS . ECHOCARDIOGRAM REPORT PROCEDURE: CA ECHO DOPPLER COMPLETE INDICATIONS: Pleural effusion, pneumonia, smoker, diabetes, chronic hypokalemia, stomach cancer COMPARISON: None. DESCRIPTION: COMPLETE ECHOCARDIOGRAM Real-time transthoracic echocardiography with 2D, M-mode, spectral and color flow Doppler performed. QUALITY: Technical quality was good. 65 , 129#, BSA 1.64 m2 LEFT VENTRICLE: Normal chamber size. Normal left ventricular wall thickness. LV EF: Global eft ventricular systolic function is normal; visually estimated ejection fraction is 60 to 65%. No wall motion abnormalities DIASTOLIC: Normal diastolic function. ATRIAL SEPTUM: Visually appears intact. LEFT ATRIUM: Normal chamber size. RIGHT ATRIUM: Normal chamber size. RIGHT VENTRICLE: Normal chamber size. Normal right ventricular systolic function. TRICUSPID VALVE: Normal mobility and thickness. No stenosis with trivial regurgitation. Doppler studies reveal mildly (35-45) elevated right sided pressures. RVSP 40 mmHg MITRAL VALVE: Normal mobility and thickness. No evidence of mitral valve stenosis. There is no mitral annular calcification. Trivial mitral regurgitation. AORTIC VALVE: Normal trileaflet appearance. Thickened aortic valve. Normal leaflet mobility. No evidence of aortic valve stenosis. No aortic regurgitation. AORTIC ROOT: Normal diameter and appearance. PULMONIC VALVE: Normal thickness and mobility. No stenosis. No regurgitation. PERICARDIUM: Anterior free space; trivial effusion versus fat pad. IVC: IVC is dilated (2.2 cm) with no collapse. PLEURA: Pleural effusion. CONCLUSION: 1. Global left ventricular systolic function is normal; visually estimated ejection fraction is 60 to 65% 2. Normal right ventricular size and systolic function 3. Normal diastolic function 4. The left atrium is normal in size 5. Mildly elevated right ventricular systolic pressure; RVSP 40 mmHg 6. Conclusions 3; trivial effusion versus fat pad 7. Left pleural effusion is seen Adult Echocardiography Procedure Report Left Ventricle LVEDD (3.7 - 5.6 cm): 4.90 cm LVESD (2.2 - 4.0 cm): 3.04 cm LVIVS thickness (0.6 - 1.2 cm): 0.97 cm LVPW thickness (0.5 - 1.0 cm): 0.76 cm e': 0.08 m/s E - e': 11.40 LVOT Max Gradient: 5.80 mm[Hg] LVOT Area (cm2): 1.20 m/s Peak Velocity (LVOT): 1.20 m/s Mean Velocity (LVOT): 0.81 m/s LVOT Diameter 1.98 cm Left Atrium LA Volume Index (2D A2C): 23.31 ml/m2 Left Atrium Systolic Dimension: 2.28 cm Mitral Valve MV E to A Ratio: 0.95 Mitral Valve A-Wave Peak Velocity: 0.90 m/s Mitral Valve E-Wave Peak Velocity: 0.86 m/s Right Ventricle Aorta AO Root Diam: 3.02 cm Ascending Ao Diam: 2.57 cm Aortic Valve AoV Area (Peak Sukhi): 2.66 cm2, 2.66 cm2 AoV Area (VTI): 2.91 cm2, 2.91 cm2 Peak Velocity(Antegrade Flow): 1.39 m/s Peak Gradient(Antegrade Flow): 7.78 mm[Hg] Mean Velocity(Antegrade Flow): 0.84 m/s Mean Gradient(Antegrade Flow): 3.40 mm[Hg] Velocity Time Integral: 29.72 cm Tricuspid Valve Peak Velocity (Regurgitant Flow): 2.52 m/s, 2.67 m/s Pulmonic Valve Peak Gradient: 2.05 mm[Hg], 2.42 mm[Hg] Right Atrium Right Atrium Systolic Pressure: 18.99 ml, 18.99 ml Dictated by: Hermila Lawrence M.D. on 11/09/2023 at 12:46 Approved by: Hermila Lawrence M.D. on 11/09/2023 at 12:49
[2023-11-09 09:30] LABS: Adenovirus NOT DETECTED (NOT DETECTE); Bordetella parapertussis NOT DETECTED (NOT DETECTE); Coronavirus 229E NOT DETECTED (NOT DETECTE); Coronavirus HKU1 NOT DETECTED (NOT DETECTE); Coronavirus NL63 NOT DETECTED (NOT DETECTE); Coronavirus OC43 NOT DETECTED (NOT DETECTE); Human Metapneumovirus NOT DETECTED (NOT DETECTE); Human Rhinovirus/Enterovirus NOT DETECTED (NOT DETECTE); Influenza A NOT DETECTED (NOT DETECTE); Influenza B NOT DETECTED (NOT DETECTE); Mycoplasma pneumoniae NOT DETECTED (NOT DETECTE); Parainfluenza Virus 1 NOT DETECTED (NOT DETECTE); Parainfluenza Virus 2 NOT DETECTED (NOT DETECTE); Parainfluenza Virus 3 NOT DETECTED (NOT DETECTE); Parainfluenza Virus 4 NOT DETECTED (NOT DETECTE); Respiratory Syncytial Virus NOT DETECTED (NOT DETECTE); SARS-CoV-2 NOT DETECTED (NOT DETECTE)
[2023-11-09] MEDS: GUAIFENESIN 600 MG TAB.ER.12H PO ×2 (09:33→20:47)
[2023-11-09] MEDS: LIDOCAINE 5% PATCH 1 PATCH TOPICAL (09:33)
[2023-11-09] MEDS: HYDROCODONE/ACET 5-325 MG TABLET 1 TAB PO ×2 (09:33→17:40)
[2023-11-09] MEDS: MAGNESIUM SULFATE IN WATER 4 GM/100 ML PIGGYBACK IV (09:34)
[2023-11-09 09:51] LABS: Troponin I High Sensitivity 12.7 pg/mL (4.0-51.3)
--- NOTE | 2023-11-09 10:14 | P.HP_ITS ---
<Statement entered by Jhonny Concepcion MD - 11/09/23 18:33> Patient seen and examined, agree with assessment and plan below. Admitted with increased SOB and elevated WBC. Check echo. On antibiotics. Resume home medication. Monitor labs. Diagnosis: 1. Sepsis 2. Pneumonia 3. Left pleural effusion 4. DM 2 5. Afib 6. CAD H&P: HPI History of Present Illness Chief complaint: altered mental PNEUMONIA Narrative: 11/09/23 0945 This is a 63-year-old female patient with a past medical history as outlined below including hx of breast, stomach, and neuroendocrine carcinomas, a-fib, CAD s/p IA x 2 and stents x 5, chronic hypotension, DM2, hypothyroidism, and a recent admission to this facility with pneumonia and right rib fractures, discharged on 10/27/2023; who presented to the ED yesterday evening via EMS with family reporting the patient has been more confused and lethargic and the patient reporting increasing shortness of breath. Workup in the ED revealed hypotension (78/53), fever (100.1, 100.7), and hypoxia (86% on RA). Labs revealed leukocytosis (16.3), hypokalemia (3.1), and hypomagnesemia (1.5). CXR revealed LLL pneumonia, pulmonary vascular congestion, moderate L pl effusion. Oxygen supplementation had to be increased to Vapotherm (40 L/70% FiO2) in order to keep her O2 sats above 90% in the ED. She was admitted to the hospitalist service overnight as an inpatient for pneumonia. At the time of my exam the patient is resting comfortably in bed eating her breakfast. She continues to complain of significant right rib pain from her fractures with any movement. Both Dr. Yanez and myself discussed with the patient that rib fractures are very painful for a prolonged period of time. The patient needs to continue to take deep breaths and cough despite the pain or she will continue to develop pneumonia. In addition, the patient and family description of altered mental status possibly reflects polypharmacy as the patient is on multiple benzodiazepines and narcotic pain medications and her long-acting morphine was just increased on 11/06/23 to 20 mg twice daily. This corresponds with the patient's increase in AMS symptoms. She reports persistent symptoms of SOB since her last admission, but worse in the last 24 hrs. She also c/o recent history of epigastric pain radiating up under her sternum. She has reported this to her PCP and was advised to follow up with her aboriginal community council member as soon as possible. Her EKG revealed possible anterior ischemia of unknown duration w/ mild T-wave abnormality, but not consistent with ACS. We will obtain a HsTnI and a 2D Echo to evaluate her cardiac function further. Review of Systems ROS Status of ROS 10 or more systems reviewed and unremark able except as noted in history and below [facility] Medical History (Updated 11/09/23 @ 13:59 by Corina Spicer NP) GERD (gastroesophageal reflux disease) ?K21.9 - Gastro-esophageal reflux disease without esophagitis (ICD-10) Diabetes ?E11.9 - Type 2 diabetes mellitus without complications (ICD-10) CAD (coronary artery disease) ?I25.10 - Atherosclerotic heart disease of [place] coronary artery without angina pectoris (ICD-10) Afib ?I48.91 - Unspecified atrial fibrillation (ICD-10) Hypothyroidism ?E03.9 - Hypothyroidism, unspecified (ICD-10) Multiple falls ?R29.6 - Repeated falls (ICD-10) Bradycardia ?R00.1 - Bradycardia, unspecified (ICD-10) Multiple rib fractures ?S22.49XA - Multiple fractures of ribs, unspecified side, initial encounter f or closed fracture (ICD-10) Constipation ?K59.00 - Constipation, unspecified (ICD-10) Leukocytosis ?D72.829 - Elevated white blood cell count, unspecified (ICD-10) Depression ?F32.A - Depression, unspecified (ICD-10) HLD (hyperlipidemia) ?E78.5 - Hyperlipidemia, unspecified (ICD-10) Chronic orthostatic hypotension ?I95.1 - Orthostatic hypotension (ICD-10) H/O malignant neoplasm of breast ?Z85.3 - Personal history of malignant neoplasm of breast (ICD-10) 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 ?C7A.8 - Other malignant neuroendocrine tumors (ICD-10) ?C7B.8 - Other secondary neuroendocrine tumors (ICD-10) Stomach cancer ?C16.9 - Malignant neoplasm of stomach, unspecified (ICD-10) Perforated intestine ?K63.1 - Perforation of intestine (nontraumatic) (ICD-10) Acute confusion ?R41.0 - Disorientation, unspecified (ICD-10) Frequent falls ?R29.6 - Repeated falls (ICD-10) Chronic hypokalemia ?E87.6 - Hypokalemia (ICD-10) Surgical History (Updated 10/26/23 @ 05:24 by Violet Aly RN) S/P lumpectomy, right breast ?Z98.890 - Other specified postprocedural states (ICD-10) H/O: hysterectomy ?Z90.710 - Acquired absence of both cervix and uterus (ICD-10) H/O gastric bypass ?Z98.84 - Bariatric surgery status (ICD-10) Family History (Updated 07/02/23 @ 15:09 by Umm Mercado LPN) Mother Family history of COPD (chronic obstructive pulmonary disease) Family history of cancer Family history of diabetes mellitus Grandmother Family history of cancer Social History (Updated 07/02/23 @ 15:10 by Umm Mercado LPN) Within the past year, how often did you have a drink containing alcohol: never Within the past year, how many standard drinks containing alcohol did you have on a typical day: 1 or 2 Within the past year, how often did you have six or more drinks on one occasion: never Total score: 0 Score interpretation: A score less than 3 is consistent with normal alcohol consumption. Smoking status: Current every day smoker Second hand tobacco smoke exposure: Yes Non-prescribed substance use: denies use Previous occupational history: retired Known occupational exposures/hazards: No Highest level of school completed/degree received: high school graduate Do you want help with school or training: No Are you now , , , , never or living with a partner: In a typical week, how many times do you talk on the telephone with family, friends, or neighbors: 3 or more times per week How often do you get together with friends or relatives: 3 or more times per week How often do you attend episcopal or uatsdin services: never Do you belong to any clubs or organizations such as episcopal groups unions, fraternal or athletic groups, or school groups: no Total score: 2 Score interpretation: A score of greater than or equal to 2 indicates the lowest level of social isolation. Little interest or pleasure in doing things: not at all Feeling down, depressed, or hopeless: not at all Feel stressed/tense/nervous/anxious/difficulty sleeping: not at all Due to disability, difficulty making decisions: No Do you think of yourself as: straight/heterosexual Gender Identity: female Meds Home Medications and Allergies Home Medications Medication Instructions Recorded Confirmed Type alprazolam 1 mg tablet 1 mg PO TID PRN anxiety 06/10/23 11/09/23 History clopidogrel 75 mg tablet 75 mg PO DAILY 06/10/23 11/09/23 History midodrine 10 mg tablet 10 mg PO TID 06/10/23 11/09/23 History nitroglycerin 0.4 mg sublingual 0.4 mg sublingual Q5M PRN chest 06/10/23 11/09/23 History tablet pain atorvastatin 80 mg tablet 80 mg PO DAILY 07/03/23 11/09/23 History gabapentin 600 mg tablet 600 mg PO BID 07/03/23 11/09/23 History metformin 500 mg tablet 500 mg PO BID 07/03/23 10/25/23 History oxycodone-acetaminophen 7.5 mg-325 1 tab PO Q8H PRN pain 07/03/23 11/09/23 History mg tablet pantoprazole 40 mg tablet,delayed 40 mg PO DAILY 07/03/23 11/09/23 History release potassium chloride 10 mEq 10 meq PO BID 07/03/23 11/09/23 History capsule,extended release aspirin 81 mg chewable tablet 81 mg PO DAILY 10/26/23 11/09/23 History metformin 500 mg tablet 500 mg PO BIDWM #60 tabs 10/27/23 Rx amiodarone 200 mg tablet 200 mg PO DAILY 11/09/23 11/09/23 History citalopram 20 mg tablet (Celexa) 20 mg PO BID 11/09/23 11/09/23 History furosemide 20 mg tablet 20 mg PO DAILY 11/09/23 11/09/23 History metoprolol succinate 25 mg 25 mg PO .QHS 11/09/23 11/09/23 History tablet,extended release 24 hr morphine 20 mg capsule,extended 20 mg PO Q12H 11/09/23 11/09/23 History release pellets naloxegol 25 mg tablet (Movantik) 25 mg PO DAILY 11/09/23 11/09/23 History zolpidem 10 mg tablet (Ambien) 10 mg PO .qhs PRN sleep 11/09/23 11/09/23 History Allergies Allergy/AdvReac Type Severity Reaction Status Date / Time No Known Drug Allergies Allergy Verified 11/08/23 21:19 Exam Constitutional Vital Signs, click to edit/add: Last Vital Signs Temp 98.9 F 11/09/23 04:46 Pulse 67 11/09/23 04:46 Resp 20 11/09/23 04:46 BP 102/52 11/09/23 04:46 Pulse Ox 94 L 11/09/23 04:46 O2 Del Method Nasal Cannula 11/09/23 04:46 O2 Flow Rate 3 11/09/23 04:46 FiO2 40 11/09/23 03:24 Common normals: no apparent distress, oriented x3, alert and well nourished General appearance: cooperative Orientation/consciousness: Yes awake HENMT Common normals: normocephalic, head/scalp atraumatic, hearing grossly normal bilaterally, external nose normal and moist oral mucous membranes Eye Common normals: PERRL, EOMs intact bilaterally, conjunctivae normal and no scleral icterus Alignment: alignment normal Eyelid: eyelids normal Neck & C-Spine Common normals: full ROM, supple and no JVD Chest Common normals: inspection of chest normal Chest: symmetrical chest wall rise and localized rib tenderness with anteroposterior compression (Distal, right. Radiates to anterior chest and abd) Respiratory Common normals: normal respiratory effort, no retractions, no use of accessory muscles and clear to auscultation bilaterally Effort & inspection: able to speak in complete sentences Auscultation: diminished lung sounds (LLL) Cardio Common normals: no JVD, regular rate, regular rhythm, S1 normal heart sound, S2 normal heart sound, no gallops, no clicks, no murmurs, no rub and peripheral pulses 2+ throughout GI Common normals: Normal to inspection, nondistended, normoactive bowel sounds present, soft to palpation, no hepatosplenomegaly, no masses and no bruits Bladder/kidney exam: bladder normal to palpation Back & Pelvis Common normals: thoracic and lumbar spine normal to inspection Extremity Common normals: normal capillary refill and no pedal edema General: normal exam except as noted; no clubbing and no cyanosis Neuro [place] Coma Scale: GCS not evaluated Common normals: CN's II-XII intact bilaterally, moves all extremities, no focal motor deficits and no sensory deficits noted Speech: speech normal Motor exam: strength 5/5 throughout Psych Common normals: mental status grossly normal, thought process normal, affect normal and activity/motor behavior normal Results Labs Labs: Short CBC 11/08/23 11/09/23 Range/Units 21:28 04:17 WBC 16.3 H 15.4 H (4.0-11.0) 10^3/uL Hgb 11.3 L 9.7 L (12.0-16.0) g/dL Hct 37.0 32.9 L (36.0-48.0) % Plt Count 365 290 (150-450) 10^3/uL BMP 11/08/23 11/09/23 21:28 04:17 Sodium 141 141 Potassium 3.1 L 3.5 Chloride 104 107 Carbon Dioxide 27.2 21.9 BUN 5.0 L 6.0 L Creatinine 0.95 0.87 Glucose 100 74 Calcium 8.5 7.7 L ABG ABG results: 11/09/23 04:17 VBG pH 7.461 H VBG pCO2 31.6 L Pulse Oximetry Attestation: I have reviewed the pertinent pulse oximetry results. ECG Interpretation: Sinus rhythm Incomplete right bundle branch block Moderate ST depression T wave abnormality, possible anterior ischemia Right ventricular hypertrophy Consistent with pulmonary disease Abnormal ECG Imaging Chest x-ray: Attestation: I have reviewed the pertinent imaging results. Radiologist's impression: IMPRESSION: Moderate left pleural effusion with adjacent atelectasis/consolidation. Pulmonary vascular congestion. Assessment and Plan Assessment and Plan (1) Sepsis: Assessment and Plan: ACUTE * Adm inpatient * AEB on arrival to ED * SEP1 Criteria: HR 91, WBC 16.3, SBP 78, Source: LLL Pneumonia * SEP3 Criteria: qSOFA of 2 (SBP 78, AMS), SOFA of at least 4 (Hypoxia, Hypotension, AMS), Source: LLL Pneumonia * 1 Liter bolus given in ED * NS IVF at 100/hr * Lactic acid < 2 * See Pneumonia for ABX * See Ac resp failure for O2 * Add procalcitonin to AM labs * Daily CBC, CMP (2) Left lower lobe pneumonia: Assessment and Plan: ACUTE * IVPB Rocephin & azithromycin for CAP coverage * Low threshold to increase to HAP coverage pending clinical course d/t recent admission * Pt has been afebrile since arrival to the floor * No significant cough * Check a full resp panel to r/o other etiologies * Flu/COVID neg in ED * Repeat CXR in 48 hrs (3) Acute metabolic encephalopathy: Assessment and Plan: ACUTE * Likely multifactorial: Sepsis/acute infection and/or polypharmacy * Significantly improved overnight - pt is A&O x 3 during exam, no evidence of confusion * Reduce narcotic and benzodiazepine medications * Discussed with the pt the need to ovoid oversedation and respiratory depression (4) Hypomagnesemia: Assessment and Plan: ACUTE * Mg lvl 1.5 in ED and not repleted * Repeat mag today unchanged - give Mag Sulfate 4gm now * Repeat mag level in AM * Tele monitoring (5) Pleural effusion, left: Assessment and Plan: ACUTE * 2D Echo today - L pleural effusion on CXR * Hold lasix for now while IVFs are infusing for sepsis * Resume when clinically indicated * Daily weights, strict I&O (6) Multiple rib fractures: Assessment and Plan: CHRONIC * Injury on 10/17/23 from falls * Suspect polypharmacy as partial etiology of AMS on admission * Reduce narcotic pain and benzodiazepine meds * Trial pain management as follows: MS contin 15 mg BID, [place] 5mg 1T q6h, Lidoderm patches * Continue home xanax * Hold home ambien for now (7) Chronic orthostatic hypotension: Assessment and Plan: CHRONIC * Continue home midodrine (8) CAD (coronary artery disease): Assessment and Plan: CHRONIC * Continue home daily ASA, plavix, BB, statin (9) Diabetes: Assessment and Plan: CHRONIC * Hold home metformin for now * ACHS glucometer checks * Med SSI for glucose correction * CC diet (10) Afib: Assessment and Plan: CHRONIC * Continue home amiodarone and BB for rate control * Pt is not on a DOAC at home (11) Depression: Assessment and Plan: CHRONIC * Continue home Celexa, gabapentin (12) GERD (gastroesophageal reflux disease): Assessment and Plan: CHRONIC * Continue home PPI * Add H1 andrew
[2023-11-09 10:20] LABS: PROCALCITONIN 0.09 ng/mL (0.00-0.50)
--- NOTE | 2023-11-09 11:42 | CM.NOTE ---
Rounds made with Dr. Concepcion. Dr. Concepcion would like to continue IV antibiotics for at least another day and wean from oxygen. Fely verbalizes understanding.
[2023-11-09] MEDS: FAMOTIDINE 20 MG TABLET 40 MG PO ×2 (11:43→20:47)
[2023-11-09 13:27] LABS: Glucometer 176 mg/dL (74-106)
[2023-11-09] MEDS: AMIODARONE HCL 200 MG TABLET PO (13:49)
[2023-11-09] MEDS: ATORVASTATIN CALCIUM 40 MG TABLET 80 MG PO (13:50)
[2023-11-09] MEDS: MIDODRINE HCL 5 MG TABLET 10 MG PO ×2 (13:50→21:45)
[2023-11-09] MEDS: ASPIRIN 81 MG TAB.CHEW PO (13:50)
[2023-11-09] MEDS: CLOPIDOGREL BISULFATE 75 MG TABLET PO (13:50)
[2023-11-09] MEDS: ALPRAZOLAM 1 MG TABLET PO ×2 (13:51→21:45)
[2023-11-09] MEDS: MORPHINE SULFATE 15 MG TABLET.ER PO (13:53)
--- NOTE | 2023-11-09 14:35 | SWNOTE1 ---
BRANDON met with pt to discuss dc needs. Pt's daughter and in room as well. Pt did voice she is in pain and she did decline some from last visit. Pt does not want to go to SNF, but she is open to Home health coming in. SW reviewed HH list from medicare.gov and she does not have a preference. SW did let her know it will depend on who takes the insurance as well. SW to call HH companies in the area to see if anyone accepts.
--- NOTE | 2023-11-09 16:13 | SWNOTE1 ---
BRANDON called [facility] and [facility] and they do not take insurance.
[2023-11-09 16:15] LABS: Glucometer 206 mg/dL (74-106)
--- NOTE | 2023-11-09 16:18 | SWNOTE1 ---
BRANDON called Obdulia at [facility] and she said to send it over, they take [place], but would have to run benefits. BRANDON sent referral.
[2023-11-09] MEDS: INSULIN ASPART 300 UNIT/3 ML PEN SUBQ (16:35)
[2023-11-09 18:42] LABS: Bilirubin Urine NEGATIVE (NEGATIVE); Blood Urine NEGATIVE (NEGATIVE); Clarity Urine CLEAR (CLEAR); Color Urine LT. YELLOW (YELLOW); Glucose Urine UA NEGATIVE (NEGATIVE); Ketones Urine NEGATIVE (NEGATIVE); Leukocyte Esterase Urine NEGATIVE (NEGATIVE); Nitrite Urine NEGATIVE (NEGATIVE); Protein Urine NEGATIVE (NEG/TRACE); Specific Gravity Urine <=1.005 (1.005-1.025); Urobilinogen Urine 0.2 EU/dL (0.2-1.0)
[2023-11-09] MEDS: MORPHINE SULFATE 4 MG/ML VIAL IV (18:44)
[2023-11-09 18:49] LABS: Bacteria Urine TRACE #/HPF (NONE SEEN); Cast Seen? NONE SEEN #/LPF (NONE SEEN); Crystals Seen? None Seen #/HPF (None Seen); Mucus Urine NONE SEEN (NONE SEEN); RBC Urine NONE SEEN #/HPF (0-2); Squamous Epithelial Cell Urine FEW #/LPF (NONE/RARE); WBC Urine NONE SEEN #/HPF (NONE SEEN)
[2023-11-09] MEDS: GABAPENTIN 300 MG CAPSULE 600 MG PO (20:47)
[2023-11-09] MEDS: POTASSIUM CHLORIDE 10 MEQ ER TABLET PO (20:47)
[2023-11-09] MEDS: CITALOPRAM HYDROBROMIDE 20 MG TABLET PO (20:47)
[2023-11-09 21:26] LABS: Glucometer 145 mg/dL (74-106)
[2023-11-09] MEDS: AZITHROMYCIN 500 MG in 0.9 % SODIUM CHLORIDE 250 ML 250 MG IV (21:45)
[2023-11-09] MEDS: METOPROLOL SUCCINATE 25 MG TAB.ER.24H PO (21:46)
[2023-11-09] MEDS: CEFTRIAXONE 1,000 MG in 0.9 % SODIUM CHLORIDE 50 ML 100 MG IV (22:31)
[2023-11-10] VITALS (56 sets, daily range): BP systolic 92–123; BP diastolic 46–63; PULSE 54–99; RESP 8–52; TEMP 36.6–39.2; O2SAT 68–100
[2023-11-10] MEDS: MORPHINE SULFATE 15 MG TABLET.ER PO ×2 (01:20→22:13)
[2023-11-10] MEDS: ACETAMINOPHEN 325 MG TABLET 650 MG PO ×2 (04:19→10:24)
[2023-11-10 04:49] LABS: ABG PCO2 36.6 mmHg (35.0-45.0); Allen Test POSITIVE (POSITIVE); Base Excess ABG -1.3 mmol/L (-2.0-2.0); HCO3 ABG 23.3 mmol/L (22.0-26.0); Oxygen Saturation ABG 88.3 %; pH ABG 7.412 (7.350-7.450)
[2023-11-10 04:50] LABS: Fractionated Inspired Oxygen 100 %; Liters per Minute 40; O2 Mode VAPOTHERM; PO2 ABG 57.7 mmHg (80.0-100.0); Puncture Site L RADIAL
[2023-11-10 05:21] LABS: Basophils Percent Auto 0.2 % (0.2-2.0); Eosinophils Absolute Auto 0.1 10^3/uL (0.0-0.7); Eosinophils Percent Auto 0.3 % (0.9-7.0); Hemoglobin 10.3 g/dL (12.0-16.0); Immature Granulocytes Abs Auto 0.08 10^3/uL (0.00-0.03); Immature Granulocytes Pct Auto 0.4 % (0.0-0.5); Lymphocytes Absolute Auto 0.9 10^3/uL (1.2-3.8); Lymphocytes Percent Auto 4.6 % (20.5-60.0); Mean Corpuscular HGB Conc 31.2 g/dL (29.9-35.2); Mean Corpuscular Hemoglobin 28.3 pg (26.7-34.0); Mean Corpuscular Volume 90.7 fL (81.0-99.0); Mean Platelet Volume 10.5 fL (9.5-13.5); Monocytes Absolute Auto 0.5 10^3/uL (0.3-0.8); Monocytes Percent Auto 2.6 % (1.7-12.0); Neutrophils Absolute Auto 17.3 10^3/uL (1.4-6.5); Neutrophils Percent Auto 91.9 % (43.0-75.0); Platelet Count 372 10^3/uL (150-450); Red Blood Count 3.64 10^6/uL (4.20-5.40); Red Cell Distribution Width 16.8 % (11.0-15.0); White Blood Count 18.8 10^3/uL (4.0-11.0)
[2023-11-10] MEDS: MIDODRINE HCL 5 MG TABLET 10 MG PO ×3 (05:39→22:12)
[2023-11-10 06:03] LABS: Alanine Aminotransferase 18 U/L (14-59); Albumin Globulin Ratio 0.5; Alkaline Phosphatase 95 U/L (46-116); Anion Gap 10.5; Aspartate Amino Transferase 24 U/L (15-37); BUN Creatinine Ratio 2.8; Bilirubin Total 0.3 mg/dL (0.2-1.0); Calcium 8.2 mg/dL (8.5-10.1); Carbon Dioxide 24.6 mmol/L (21.0-32.0); Chloride 106 mmol/L (98-107); Estimated GFR (African America >60 (>=60); Estimated GFR (Non-African Ame >60 (>=60); Globulin 4.1 g/dL; Glucose 120 mg/dL (74-106); Magnesium 1.7 mg/dL (1.8-2.4); Potassium 3.1 mmol/L (3.5-5.1); Sodium 138 mmol/L (136-145); Total Protein 6.1 g/dL (6.4-8.2)
[2023-11-10 07:35] LABS: Glucometer 122 mg/dL (74-106)
[2023-11-10] MEDS: METHYLPREDNISOLONE SOD SUCC PF 125 MG/2 ML VIAL 60 MG IVP ×3 (08:25→22:11)
[2023-11-10] MEDS: FAMOTIDINE 20 MG TABLET 40 MG PO ×2 (08:25→22:10)
[2023-11-10] MEDS: CITALOPRAM HYDROBROMIDE 20 MG TABLET PO ×2 (08:25→22:10)
[2023-11-10] MEDS: ATORVASTATIN CALCIUM 40 MG TABLET 80 MG PO (08:25)
[2023-11-10] MEDS: GABAPENTIN 300 MG CAPSULE 600 MG PO ×2 (08:25→22:10)
[2023-11-10] MEDS: AMIODARONE HCL 200 MG TABLET PO (08:25)
[2023-11-10] MEDS: LEVOFLOXACIN IN DEXTROSE 5 % 750 MG/150 ML IV.SOLN 100 MG IV (08:25)
[2023-11-10] MEDS: ASPIRIN 81 MG TAB.CHEW PO (08:25)
[2023-11-10] MEDS: CLOPIDOGREL BISULFATE 75 MG TABLET PO (08:25)
[2023-11-10] MEDS: POTASSIUM CHLORIDE 10 MEQ ER TABLET PO ×2 (08:25→22:12)
[2023-11-10] MEDS: GUAIFENESIN 600 MG TAB.ER.12H PO ×2 (08:27→22:11)
[2023-11-10] MEDS: 0.9 % SODIUM CHLORIDE 1,000 ML 100 ML IV (08:27)
[2023-11-10] MEDS: LIDOCAINE 5% PATCH 1 PATCH TOPICAL (08:36)
--- NOTE | 2023-11-10 08:44 | SWNOTE1 ---
BRANDON called and spoke to admissions at [facility] and they are working on getting authorization from the [place], they will call BRANDON back once they have spoke to [facility].
[2023-11-10] MEDS: PIPERACILLIN SODIUM/TAZOBACTAM 3.375 GM in 0.9 % SODIUM CHLORIDE 50 ML IV ×2 (10:07→17:15)
[2023-11-10 11:00] LABS: Glucometer 126 mg/dL (74-106)
--- NOTE | 2023-11-10 11:29 | CM.NOTE ---
Rounds made with Dr. Concepcion, pt on vapotherm and remains short of breath. PT and OT orders put in for evaluation today. Pt lives at home with and plans on returning back to home.
--- NOTE | 2023-11-10 12:47 | SWNOTE1 ---
BRANDON received message from Obdulia at [facility] and they need to know if pt or is , BRANDON let her know it is the . Also requested social security number, BRANDON faxed over.
--- NOTE | 2023-11-10 13:32 | PM.PN ---
Progress Note: Subjective Subjective Interval history: Patient worsened overnight. Developed altered mental status and hypoxia, placed on high flow oxygen. C/o SOB and feels like can't take deep breath. Mild cough. Continues to c/o pain from broken ribs. Normal appetite and no emesis or diarrhea. WBC elevated and temp 102.5 max. No chest pain or palpitations. Exam Constitutional Vital Signs, click to edit/add: Last Vital Signs Temp 98.9 F 11/10/23 06:42 Pulse 64 11/10/23 11:25 Resp 14 11/10/23 11:25 BP 97/46 L 11/10/23 11:25 Pulse Ox 94 L 11/10/23 10:40 O2 Del Method Vapotherm 11/10/23 10:03 O2 Flow Rate 40 11/10/23 10:03 FiO2 60 11/10/23 10:03 Documenting provider has reviewed patient's vital signs: yes Common normals: no apparent distress, oriented x3 and alert HENMT Common normals: normocephalic Eye Common normals: PERRL and EOMs intact bilaterally Respiratory Common normals: normal respiratory effort Cardio Common normals: regular rate, regular rhythm, no gallops, no murmurs and no rub GI Common normals: Normal to inspection, nondistended, normoactive bowel sounds present and non-tender Extremity Common normals: no pedal edema Progress Note: Objective Labs Labs: Short CBC 11/10/23 Range/Units 04:40 WBC 18.8 H (4.0-11.0) 10^3/uL Hgb 10.3 L (12.0-16.0) g/dL Hct 33.0 L (36.0-48.0) % Plt Count 372 (150-450) 10^3/uL BMP 11/10/23 04:40 Sodium 138 Potassium 3.1 L Chloride 106 Carbon Dioxide 24.6 BUN 2.0 L Creatinine 0.72 Glucose 120 H Calcium 8.2 L Liver Function 11/10/23 Range/Units 04:40 Total Bilirubin 0.3 (0.2-1.0) mg/dL AST 24 (15-37) U/L ALT 18 (14-59) U/L Alkaline Phosphatase 95 (46-116) U/L Albumin 2.0 L (3.4-5.0) g/dL Urine 11/09/23 Range/Units 18:05 Urine Color Lt. yellow (YELLOW) Urine Clarity Clear (CLEAR) Urine pH 6.0 (5.0-9.0) Ur Specific [place] <=1.005 A (1.005-1.025) Urine Protein Negative (NEG/TRACE) mg/dL Urine Glucose (UA) Negative (NEGATIVE) mg/dL Progress Note: A&P Assessment and Plan (1) Sepsis: (2) Left lower lobe pneumonia: (3) Acute hypoxic respiratory failure: (4) Pleural effusion, left: (5) Multiple rib fractures: (6) Diabetes: (7) Afib: (8) CAD (coronary artery disease): Plan Worsening SOB and hypoxia overnight. Currently on high flow oxygen and add steroids. Change antibiotics to zosyn and levaquin. Continue medication for pain. Wean oxygen as tolerated. Monitor labs. Repeat x-ray in am.
--- NOTE | 2023-11-10 15:16 | SWNOTE1 ---
BRANDON received message from [facility] and they are able to accept. BRANDON put together packet for weekend.
--- NOTE | 2023-11-10 15:48 | SWNOTE1 ---
[facility] is able to accept. SW left discharge information on floor for nursing to send at discharge.
[2023-11-10] MEDS: INSULIN ASPART 300 UNIT/3 ML PEN SUBQ ×2 (17:14→22:23)
[2023-11-10 17:15] LABS: Glucometer 187 mg/dL (74-106)
--- NOTE | 2023-11-10 18:47 | PC.NURSE ---
Patients daughter called and alerted us that her mother may potentially be self medicating herself with home narcotics and controlled substances. This RN went and talked to her. The patient openly admitted to her self medicating, once stating it was her home ambien and once stating it was her home xanax. Contacted our nursing over the horizon targeting supervisor jeannie Lane RN, to inform of the situation. Jeannie entered the room and questioned the patient and the patient stated that she medicated herself with her home xanax. The patient has denied us to search her belongins and is refusing to tell staff where the medication is in the room. Our adminsitration paper cone drying machine operator is being notified of the situation to figure out further action at this time.
--- NOTE | 2023-11-10 21:05 | PC.NURSE ---
*Late entry: At 1830 nursing banana ripening room supervisor was called to the ICU with concerns of the patient self-medicating. Nursing banana ripening room supervisor to patient room regarding patient report to primary nurse of self medicating with home medications. Patient reports to banana ripening room supervisor she told primary RN, Andrew, that she has been self-medicating with her home ambien, but is actually taking xanax and has all of her home medication here. Patient reports she has all of her home medications, including controlled substances. Service Provider explained policy of securing patient home medications and returning to patient upon discharge. Patient declined to provide home medications to the nursing banana ripening room supervisor stating it is my right to take them as I want. Service Provider explained to patient it is unsafe to self-medicate with home medications in addition to the medications prescribed in the hospital. Patient did not consent to a belongings search and reported I'm just going to sign out AMA. Service Provider explained to patient the safety concerns for patient leaving against medical advice in her current condition, and notified patient the physician would be contacted by her nurse to address the patient's request to leave AMA. Security to room requesting patient home medications, patient declined to provide to security and refused to consent to a search of her belongings. Security remained at patient bedside as a 1:1 to ensure patient safety. 1:1 initiated to remain at patient bedside for the evening to ensure safety and that patient does not continue to self-medicate with her home medications. Patient agreeable to remain admitted in the ICU and declines to leave AMA at this time.
[2023-11-10] MEDS: METOPROLOL SUCCINATE 25 MG TAB.ER.24H PO (22:12)
[2023-11-10] MEDS: ALPRAZOLAM 1 MG TABLET PO (22:14)
[2023-11-10] MEDS: ENOXAPARIN SODIUM 40 MG/0.4 ML SYRINGE SUBQ (22:14)
[2023-11-10] MEDS: NICOTINE 21 MG PATCH.TD24 TD (22:14)
[2023-11-10 22:24] LABS: Glucometer 179 mg/dL (74-106)
[2023-11-10] MEDS: HYDROCODONE/ACET 5-325 MG TABLET 1 TAB PO (23:52)
[2023-11-11] VITALS (37 sets, daily range): BP systolic 93–137; BP diastolic 51–86; PULSE 49–81; RESP 10–63; TEMP 37.1; O2SAT 77–96
[2023-11-11] MEDS: 0.9 % SODIUM CHLORIDE 1,000 ML 100 ML IV ×3 (01:31→22:05)
[2023-11-11] MEDS: PIPERACILLIN SODIUM/TAZOBACTAM 3.375 GM in 0.9 % SODIUM CHLORIDE 50 ML IV ×3 (02:13→20:05)
[2023-11-11] MEDS: METHYLPREDNISOLONE SOD SUCC PF 125 MG/2 ML VIAL 60 MG IVP ×3 (02:17→22:02)
[2023-11-11 04:49] LABS: Basophils Percent Auto 0.1 % (0.2-2.0); Hematocrit 29.7 % (36.0-48.0); Hemoglobin 8.9 g/dL (12.0-16.0); Immature Granulocytes Abs Auto 0.09 10^3/uL (0.00-0.03); Immature Granulocytes Pct Auto 0.4 % (0.0-0.5); Lymphocytes Absolute Auto 0.9 10^3/uL (1.2-3.8); Mean Corpuscular Hemoglobin 27.7 pg (26.7-34.0); Mean Corpuscular Volume 92.5 fL (81.0-99.0); Mean Platelet Volume 10.7 fL (9.5-13.5); Monocytes Absolute Auto 0.5 10^3/uL (0.3-0.8); Monocytes Percent Auto 2.4 % (1.7-12.0); Neutrophils Absolute Auto 19.9 10^3/uL (1.4-6.5); Neutrophils Percent Auto 93.1 % (43.0-75.0); Platelet Count 351 10^3/uL (150-450); Red Blood Count 3.21 10^6/uL (4.20-5.40); Red Cell Distribution Width 16.8 % (11.0-15.0); White Blood Count 21.4 10^3/uL (4.0-11.0)
[2023-11-11] MEDS: ALPRAZOLAM 1 MG TABLET PO ×2 (04:53→12:07)
--- NOTE | 2023-11-11 05:00 | XR_ITS ---
The [address] [address] Patient Name: HONEY MONTES MRN: [id number] date: 1960 Sex: F Assigned Patient Location: ICU Current Patient Location: ICU Accession/Order Number: [id number] Exam Date: 11/11/2023 04:50 Report Date: 11/11/2023 08:14 At the request of: ANALY HAMMONDS Procedure: XR chest 1V PROCEDURE: XR chest 1V DATE: 11/11/2023 4:50 AM EST COMPARISONS: 11/08/2023 CLINICAL INDICATION: 63 years Female Pneumonia FINDINGS: The heart appears prominent and is stable in appearance Moderately prominent diffuse interstitial airspace disease is noted throughout all lung ibarra, similar to previous exam. There is blunting of left costophrenic angle consistent with moderate size left pleural effusion and associated atelectasis. The effusion remains stable from previous exam but the amount of atelectasis has decreased slightly. There is no evidence of right pleural effusion. There is no evidence of pneumothorax. XR/XR chest 1V IMPRESSION: The present exam is a better inspiratory radiograph than previous exam. There is been some decrease in left basilar atelectasis since previous exam. Prominent diffuse interstitial airspace disease persists. Moderate size left pleural effusion persists. Electronically authenticated by: KHUSHBOO ROBERTSON Date: 11/11/2023 08:14
[2023-11-11 05:11] LABS: Alanine Aminotransferase 13 U/L (14-59); Albumin Globulin Ratio 0.4; Albumin Level 1.7 g/dL (3.4-5.0); Alkaline Phosphatase 81 U/L (46-116); Anion Gap 11.1; Aspartate Amino Transferase 21 U/L (15-37); BUN Creatinine Ratio 6.5; Bilirubin Total 0.2 mg/dL (0.2-1.0); Calcium 8.6 mg/dL (8.5-10.1); Carbon Dioxide 25.5 mmol/L (21.0-32.0); Chloride 111 mmol/L (98-107); Estimated GFR (African America >60 (>=60); Estimated GFR (Non-African Ame >60 (>=60); Glucose 173 mg/dL (74-106); Potassium 3.6 mmol/L (3.5-5.1); Sodium 144 mmol/L (136-145); Total Protein 5.7 g/dL (6.4-8.2)
[2023-11-11] MEDS: HYDROCODONE/ACET 5-325 MG TABLET 1 TAB PO (06:00)
[2023-11-11] MEDS: MIDODRINE HCL 5 MG TABLET 10 MG PO ×2 (06:04→22:03)
--- NOTE | 2023-11-11 07:44 | RESP.RT ---
Decreased fio2 to 50%
[2023-11-11 08:14] LABS: Glucometer 211 mg/dL (74-106)
[2023-11-11] MEDS: ATORVASTATIN CALCIUM 40 MG TABLET 80 MG PO (08:45)
[2023-11-11] MEDS: AMIODARONE HCL 200 MG TABLET PO (08:46)
[2023-11-11] MEDS: ASPIRIN 81 MG TAB.CHEW PO (08:46)
[2023-11-11] MEDS: MORPHINE SULFATE 15 MG TABLET.ER PO ×2 (08:47→20:05)
[2023-11-11] MEDS: CITALOPRAM HYDROBROMIDE 20 MG TABLET PO ×2 (08:47→20:05)
[2023-11-11] MEDS: CLOPIDOGREL BISULFATE 75 MG TABLET PO (08:48)
[2023-11-11] MEDS: GUAIFENESIN 600 MG TAB.ER.12H PO ×2 (08:48→20:05)
[2023-11-11] MEDS: GABAPENTIN 300 MG CAPSULE 600 MG PO ×2 (08:48→20:05)
[2023-11-11] MEDS: POTASSIUM CHLORIDE 10 MEQ ER TABLET PO ×2 (08:48→20:06)
[2023-11-11] MEDS: LIDOCAINE 5% PATCH 1 PATCH TOPICAL (08:49)
[2023-11-11] MEDS: FAMOTIDINE 20 MG TABLET 40 MG PO ×2 (08:49→20:05)
[2023-11-11] MEDS: INSULIN ASPART 300 UNIT/3 ML PEN SUBQ ×3 (08:50→22:20)
[2023-11-11] MEDS: LEVOFLOXACIN IN DEXTROSE 5 % 750 MG/150 ML IV.SOLN 100 MG IV (09:08)
--- NOTE | 2023-11-11 09:11 | PT.DAILY ---
Physical Therapy Daily Note PT Daily Note/Assess Start: 11/10/23 09:14 Freq: Status: Active Protocol: Document 11/11/23 08:52 [id number] (Rec: 11/11/23 09:11 [id number]) Physical Therapy Daily Note/Assessment Time In/Time Out Time In 08:28 Time Out 08:48 Subjective Subjective Patient received in bed, rates pain to 6-7/10 to R ribs. Constant observer present during treatment. Patient states she feels a little dizzy. Therapeutic Exercise Time Therapeutic Exercise Minutes (minutes) 9 Therapeutic Exercise Units 1 Therapeutic Exercise Treatment Therapeutic Exercise Treatment Supine and seated ther ex to DEB LE for AROM and isometric for strengthening. 02 level pre ther ex @ 95%, during ther ex 90%. Recovers fairly quickly. Therapeutic Activity Time Therapeutic Activity Minutes (minutes) 10 Therapeutic Activity Units 1 Therapeutic Activity Treatment Bed Mobility Ability Minimum Assist,1 Person Assist Chair Transfer Ability Contact Guard Assist,1 Person Assist Therapeutic Activity Comments 02 93% prior to bed mobility and dropped to 82% with functional movement, fairly quickly recovers with sitting. Patient has posterior drift upon initial standing, verbal cues to press toes into ground to help self right into upright position. Performed ambulating 2 steps FWD/ backward with RW w/ CGa+1 x 1 minute. O2 level 88% to 89% during ambulating. Sit to stand to RW for pivot transfer to chair w/ CGA +1. Total Physical Therapy Time Total Therapy Minutes 19 Total Physical Therapy Units 2 Summary Daily Note Summary Patient demonstrates fluctuating O2 level from 95% to as low at 83% with functional movements. Recovers fair quickly. Does demonstrate increase ambulation time. Able to correct posterior drift with verbal cues to press into floor to self right.
--- NOTE | 2023-11-11 09:14 | PT.DAILY ---
Physical Therapy Daily Note PT Daily Note/Assess Start: 11/10/23 09:14 Freq: Status: Active Protocol: Document 11/11/23 08:52 [id number] (Rec: 11/11/23 09:11 [id number]) Physical Therapy Daily Note/Assessment Time In/Time Out Time In 08:28 Time Out 08:48 Subjective Subjective Patient received in bed, rates pain to 6-7/10 to R ribs. Constant observer present during treatment. Patient states she feels a little dizzy. Therapeutic Exercise Time Therapeutic Exercise Minutes (minutes) 9 Therapeutic Exercise Units 1 Therapeutic Exercise Treatment Therapeutic Exercise Treatment Supine and seated ther ex to DEB LE for AROM and isometric for strengthening. 02 level pre ther ex @ 95%, during ther ex 90%. Recovers fairly quickly. Therapeutic Activity Time Therapeutic Activity Minutes (minutes) 10 Therapeutic Activity Units 1 Therapeutic Activity Treatment Bed Mobility Ability Minimum Assist,1 Person Assist Chair Transfer Ability Contact Guard Assist,1 Person Assist Therapeutic Activity Comments 02 93% prior to bed mobility and dropped to 82% with functional movement, fairly quickly recovers with sitting. Patient has posterior drift upon initial standing, verbal cues to press toes into ground to help self right into upright position. Performed ambulating 2 steps FWD/ backward with RW w/ CGa+1 x 1 minute. O2 level 88% to 89% during ambulating. Sit to stand to RW for pivot transfer to chair w/ CGA +1. Total Physical Therapy Time Total Therapy Minutes 19 Total Physical Therapy Units 2 Summary Daily Note Summary Patient demonstrates fluctuating O2 level from 95% to as low at 83% with functional movements. Recovers fair quickly. Does demonstrate increase ambulation time. Able to correct posterior drift with verbal cues to press into floor to self right. Edit Result 11/11/23 08:52 [id number] (Rec: 11/11/23 09:13 [id number]) Physical Therapy Daily Note/Assessment Subjective Subjective Patient received in bed, rates pain to 6-7/10 to R ribs. Constant observer present during treatment. Patient states she feels a little dizzy. Patient on Vapotherm. Summary Daily Note Summary Patient demonstrates fluctuating O2 level from 95% to as low at 83% with functional movements. Recovers fair quickly. Does demonstrate increase ambulation time. Able to correct posterior drift with verbal cues to press into floor to self right. Patient on Vapotherm limiting ambulation distance.
--- NOTE | 2023-11-11 09:41 | PM.PN ---
Progress Note: Subjective Subjective Interval history: patient reports improved breathing this morning. Patient's daughter was present at the time of exam. It appears that patient had been taking medications dispensed from her in the room as her home medications in addition to what she has been getting in the hospital. Initially she denied taking any additional medications but then admitted that she had been taking more. Her daughter also was involved and agreed that her mother has been getting many extra medications at home and while her father is visiting. These medications were given to the nursing staff and patient was provided a sitter. This morning patient says that she plans to not take any additional medications, she is in good spirits this morning still complaining of some left-sided rib pain and chest pain from her broken ribs. She says her breathing has improved and denies any fevers or chills. Since patient is more cooperative today, coherent, will discontinue the one-on-one sitter. Exam Narrative Exam Narrative: General: Patient is alert, and oriented to person, place and time with normal affect, proper hygiene Skin: ecchymoses noted on the left torso Head: atraumatic, acephalic Eyes: PERRLA, no nystagmus present, conjunctiva clear, no scleral icterus Ears: normal gross auditory acuity Heart: Normal rate and rhythm, no murmurs/rubs/gallops Lungs: no audible wheezes, crackles and diminished breath sounds all lung ibarra Musculoskeletal: no swelling bilateral lower extremities Neuro: CN II-X grossly intact Constitutional Vital Signs, click to edit/add: Last Vital Signs Temp 97.8 F 11/10/23 23:50 Pulse 62 11/11/23 07:52 Resp 13 11/11/23 06:03 BP 117/63 11/11/23 06:03 Pulse Ox 95 11/11/23 07:52 O2 Del Method Vapotherm 11/11/23 07:44 O2 Flow Rate 40 11/11/23 07:44 FiO2 50 11/11/23 07:44 Progress Note: Objective Labs Labs: Short CBC 11/11/23 Range/Units 04:20 WBC 21.4 H (4.0-11.0) 10^3/uL Hgb 8.9 L (12.0-16.0) g/dL Hct 29.7 L (36.0-48.0) % Plt Count 351 (150-450) 10^3/uL BMP 11/11/23 04:20 Sodium 144 Potassium 3.6 Chloride 111 H Carbon Dioxide 25.5 BUN 5.0 L Creatinine 0.77 Glucose 173 H Calcium 8.6 Liver Function 11/11/23 Range/Units 04:20 Total Bilirubin 0.2 (0.2-1.0) mg/dL AST 21 (15-37) U/L ALT 13 L (14-59) U/L Alkaline Phosphatase 81 (46-116) U/L Albumin 1.7 L (3.4-5.0) g/dL Progress Note: A&P Assessment and Plan (1) Left lower lobe pneumonia: Assessment and Plan: left lower lobe pneumonia as seen on chest x-ray along with small left pleural effusion most likely secondary from chronic rib fractures. Continue on the Zosyn and Levaquin. White blood cell count is twenty-one.cultures pending Qualifiers: Pneumonia type: due to unspecified organism Qualified Code(s): J18.9 - Pneumonia, unspecified organism (2) Acute hypoxic respiratory failure: Assessment and Plan: requiring high flow oxygen, and at times they performed. Continue nebulizer treatments O PEP therapy, and steroids. Secondary to pneumonia. (3) Multiple rib fractures: Assessment and Plan: continue pain control, also trying to prevent polypharmacy and respiratory depression/ with narcotics. Continue Solu-Medrol Qualifiers: Encounter type: subsequent encounter Fracture type: closed Laterality: left Fracture healing: with delayed healing Qualified Code(s): S22.42XG - Multiple fractures of ribs, left side, subsequent encounter for fracture with delayed healing (4) Hypokalemia: Assessment and Plan: continue klorcon 10meq BID (5) Diabetes: Assessment and Plan: continue sliding scale insulin, glucose has been elevated due to steroid use. We'll continue to monitor Qualifiers: Diabetes mellitus type: type 2 Diabetes mellitus usp insulin use: without long term care administrator use Diabetes mellitus complication status: without complication Qualified Code(s): E11.9 - Type 2 diabetes mellitus without complications (6) Afib: Assessment and Plan: continue metoprolol for rate control. And amiodaronecontinue also aspirin and Plavix Qualifiers: Atrial fibrillation type: paroxysmal Qualified Code(s): I48.0 - Paroxysmal atrial fibrillation (7) CAD (coronary artery disease): Assessment and Plan: continue aspirin Plavix and atorvastatin Qualifiers: Coronary Disease-Associated Artery/Lesion type: unspecified vessel or lesion type [place] vs. transplanted heart: unspecified whether [place] or transplanted heart Associated angina: without angina Qualified Code(s): I25.10 - Atherosclerotic heart disease of [place] coronary artery without angina pectoris (8) Hypothyroidism: Qualifiers: Hypothyroidism type: unspecified Qualified Code(s): E03.9 - Hypothyroidism, unspecified (9) GERD (gastroesophageal reflux disease): Assessment and Plan: continue Protonix Qualifiers: Esophagitis presence: esophagitis presence not specified Qualified Code(s): K21.9 - Gastro-esophageal reflux disease without esophagitis Plan patient has SCDs for deep vein thrombosis prophylaxis Patient is full code Patient is an inpatient status and is expected to stay more than two nights
--- NOTE | 2023-11-11 09:45 | PC.NURSE ---
0945 Received in report that patient had a change in mental status with respiratory distress and depression noted and required that she be placed on vapotherm to sustain life. It was suspected that patient may have been taking her home meds due to uncontrolled pain while in hospital. Previous shift stated that administration requested patient be placed on 1:1 observation to ensure that there was no additional contraband taken by patient while in hospital. Discussed with food and nutrition services supervisor and the plan is to have patient evaluated prior to removal of sitter if okayed by both the administration and physician in house. 1030 Physician, Dr. Emelia Mccollum, at bedside and determined at this time it was no longer necessary for patient to have a salvage worker for safety at this time. Medication safety was discussed with patient's daughter, Mary, and she is planning on discussing with patient's a plan to implement when they get home. Mary states that patient's did admit to bringing in some of her home medications in which she did take previously. did not tell her what was given but stated that patient did take additional home medications while inpatient. Patient was then assisted to the shower room where she was able to shower and linens were changed. No other contraband was noted during bed change. Daughter states that all medications were taken home, except for two empty bottles in bag. Patient is requesting to keep these empty bottles to ensure that she fills her medication in a timely fashion. Daughter then placed patient's bag with her remaining belongings.
[2023-11-11] MEDS: ACETAMINOPHEN 325 MG TABLET 650 MG PO ×2 (12:07→22:02)
[2023-11-11 12:13] LABS: Glucometer 341 mg/dL (74-106)
--- NOTE | 2023-11-11 12:27 | PC.NURSE ---
At 1100 bid writer assisted by Victor Manuel with doing a complete bed change, cleaned and organized bedside table, bathroom, and new linen applied to recliner. There was nothing apparent in sight.
[2023-11-11] MEDS: NICOTINE 21 MG PATCH.TD24 TD (22:03)
[2023-11-11] MEDS: METOPROLOL SUCCINATE 25 MG TAB.ER.24H PO (22:05)
[2023-11-11] MEDS: ENOXAPARIN SODIUM 40 MG/0.4 ML SYRINGE SUBQ (22:05)
--- NOTE | 2023-11-11 22:19 | PC.NURSE ---
Late Entry from 11/10/2023 190 Patient with call light on. States she is leaving hospital tonight Against Medical Advice. Currently on Vapotherm 40 Liter flow and 50% FIO2. Patient asked to use BSC. Assistance provided and back to bed. 1904 Hospital Furnace Packer and [facility] Spool Sander in patient room to speak with patient. See notes from Hospital Furnace Packer including conversations with Hospital Senior Quality Engineer on how to provide the highest level of safety to the patient. 1914 RN in room with patient, discussing POC for patient. Patient states to RN that she wants to go home tonight and is going to call her spouse. This RN Discussed with patient concerns of her leaving the hospital due to current Oxygen use of Vapotherm 50% and 40 Liter flow. Patient does not have home oxygen. Patient would have to go from 50% oxygen to room air to transport home. Discussed with patient what medical complications she could experience due to decline in oxygen levels and possible/probable medical emergencies she could experience. Patient very calm with interaction. Patient states to this RN that she promises she will not take any medications from home on her own since staff has ordered medications to administer from her. This RN explained to patient that having home medications at her disposal is a safety concerns and asks patient if she will allow this RN to lock her home medications in the locked electronic sensing equipment assembler the patients room, patient declines and again states: I am going to call my and go home tonight. Patient calm with conversation and insistant on leaving. Patient has her own cell phone and states she will call her spouse. 1939 Patient heard on phone talking with family member telling them she wants to go home. Daughter speaks with [facility] Spool Sander Arron and notes she will be into see patient soon. 1944 Hospitalist Jena Graves CLINIC CLERK notified by this RN of patient stated intentions of going home tonight. Aware of current Oxygen levels in use. Discussed patient safety issue with Jena MANCILLA. CLINIC CLERK notes she is willing to speak with patient and or family on phone if needed and that her Primary physician is also accessible if patient/family need his interaction as well. 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 2019 Patients daughter and spouse (Patient's son in law) present in ICU. Asked this RN for update on patient. Update on patient's current condition given with concerns of patient safety if she leaves here and removes her current level of Oxygen. 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 Patient daughter voices her concerns of her mother having multiple medications at her home and that she self medicates when patient feels it is needed. Daughter states she is able to answer all orientation questions appropriately then performs tasks that are completely inappropriate in the same time frame. Daughter notes she is concerned with patient's level of health and that she does not have the option to take her home tonight even if the patient asks. Daughter states she will take all patient home medications home this evening for safe keeping. Daughter and son-in-law entered room, spoke with patient, gave her reassurance that staff would address any concerns as they occur and she has ordered medication and PRN medication to assist her with her symptoms. Daughter showed other working staff members the home medications that she had in her possession was removing from the hospital. 2100 Patient is calm and compliant with care. Constant Observer staff in use with patient to observe patient at all times and insure that patient does not have concealed medications in her possession and take them without the knowledge of staff. 2250 Jena Graves CLINIC CLERK Notified by [place] Text that family has taken all home medications home with them to eliminate patient from having access on her own. Patient condition update given. No new orders noted.
[2023-11-11 22:26] LABS: Glucometer 238 mg/dL (74-106)
[2023-11-12] VITALS (42 sets, daily range): BP systolic 113–175; BP diastolic 60–81; PULSE 51–84; RESP 5–26; TEMP 36.6–36.8; O2SAT 76–97
--- NOTE | 2023-11-12 00:02 | RESP.RT ---
Pt was on 10 liter high flow nasal cannula and Sp02 was ranging from 87%-88%. Placed pt on Vapotherm 40L Fi02 60% and Sp02 increased to 91%-92%.
[2023-11-12] MEDS: PIPERACILLIN SODIUM/TAZOBACTAM 3.375 GM in 0.9 % SODIUM CHLORIDE 50 ML IV ×3 (02:51→17:00)
[2023-11-12] MEDS: METHYLPREDNISOLONE SOD SUCC PF 125 MG/2 ML VIAL 60 MG IVP ×2 (02:51→09:05)
[2023-11-12 05:08] LABS: Hematocrit 28.4 % (36.0-48.0); Hemoglobin 8.7 g/dL (12.0-16.0); Mean Corpuscular HGB Conc 30.6 g/dL (29.9-35.2); Mean Corpuscular Hemoglobin 28.2 pg (26.7-34.0); Mean Corpuscular Volume 92.2 fL (81.0-99.0); Mean Platelet Volume 10.4 fL (9.5-13.5); Platelet Count 397 10^3/uL (150-450); Red Blood Count 3.08 10^6/uL (4.20-5.40); White Blood Count 26.5 10^3/uL (4.0-11.0)
[2023-11-12 05:35] LABS: Alanine Aminotransferase 15 U/L (14-59); Albumin Globulin Ratio 0.4; Albumin Level 1.7 g/dL (3.4-5.0); Alkaline Phosphatase 87 U/L (46-116); Anion Gap 12.1; Aspartate Amino Transferase 28 U/L (15-37); BUN Creatinine Ratio 11.1; Bilirubin Total 0.3 mg/dL (0.2-1.0); Calcium 8.6 mg/dL (8.5-10.1); Carbon Dioxide 24.3 mmol/L (21.0-32.0); Chloride 111 mmol/L (98-107); Estimated GFR (African America >60 (>=60); Estimated GFR (Non-African Ame >60 (>=60); Globulin 4.2 g/dL; Glucose 152 mg/dL (74-106); Potassium 4.4 mmol/L (3.5-5.1); Sodium 143 mmol/L (136-145); Total Protein 5.9 g/dL (6.4-8.2)
[2023-11-12 06:06] LABS: Band Neutrophils Absolute 0.3 10^3/uL (0.0-0.3); Hypochromasia 3+; Poikilocytosis 3+; Segmented Neut Absolute Manual 26.23 10^3/uL (1.4-6.5); Toxic Granulation 3+
[2023-11-12] MEDS: ALPRAZOLAM 1 MG TABLET PO ×2 (06:41→20:37)
[2023-11-12] MEDS: MIDODRINE HCL 5 MG TABLET 10 MG PO (06:42)
[2023-11-12 07:19] LABS: Glucometer 228 mg/dL (74-106)
[2023-11-12] MEDS: INSULIN ASPART 300 UNIT/3 ML PEN SUBQ ×3 (07:30→22:07)
--- NOTE | 2023-11-12 08:11 | CT_ITS ---
[address] [address] Patient Name: HONEY MONTES MRN: [id number] date: 1960 Sex: F Assigned Patient Location: ICU Current Patient Location: ICU Accession/Order Number: [id number] Exam Date: 11/12/2023 08:25 Report Date: 11/12/2023 09:30 At the request of: DESTINEY SOLIZ Procedure: CT angio chest EXAMINATION: CT angio chest HISTORY: acute hypoxia, chest pain COMPARISON: 11/11/2023, 10/25/2023 TECHNIQUE: Multi-planar CT images were created with IV contrast. Axial, Coronal, and Sagittal images. Dose reduction techniques were achieved by using automated exposure control and/or adjustment of mA and/or kV according to patient size and/or use of iterative reconstruction technique. FINDINGS: LUNGS: Near-complete consolidation of the left lower lobe with presence of air bronchograms. Partial consolidation of the lingula. Moderate patchy and groundglass infiltrates scattered throughout both lungs with some minimal peripheral intralobular septal thickening. Scattered pulmonary nodules difficult to ascertain in light of the underlying parenchymal changes PLEURA: 1.1 cm right and 6.5 cm left pleural effusions. No pneumothorax VASCULATURE: Normal postcontrast opacification of the central pulmonary arterial tree with no filling defect to suggest a pulmonary embolus CHANDAN: Mildly enlarged right hilar lymph nodes MEDIASTINUM: No mass or adenopathy. CARDIAC: The heart is prominent in size. No pericardial effusion. Moderate coronary atherosclerosis AORTA: No aneurysm or dissection. CHEST WALL: No mass or axillary adenopathy. BONES: Stable left rib fractures LIMITED ABDOMEN: No suspicious findings. Limited images of the upper abdomen. OTHER: Negative. CT/CT angio chest IMPRESSION: No central pulmonary thromboembolic disease Diffuse bilateral parenchymal infiltrates with consolidation of the lingula and left lower lobes are consider multifocal pneumonia and/or pulmonary edema Small right and large left pleural effusion Electronically authenticated by: RUBEN ROJAS Date: 11/12/2023 09:30
--- NOTE | 2023-11-12 08:15 | PM.PN ---
Progress Note: Subjective Subjective Interval history: patient reports improved breathing this morning. Patient's daughter was present at the time of exam. She says when she lays flat at night time is when she gets the most pain and this is also the time her oxygen saturations drop. She would like something for pain at night time. Otherwise she has no new complaints this morning. Slowly feeling better. Afebrile. appetite is improving. Exam Narrative Exam Narrative: General: Patient is alert, and oriented to person, place and time with normal affect, proper hygiene Skin: ecchymoses noted on the left torso, right lower arm with mild swelling Head: atraumatic, acephalic Eyes: PERRLA, no nystagmus present, conjunctiva clear, no scleral icterus Ears: normal gross auditory acuity Heart: Normal rate and rhythm, no murmurs/rubs/gallops Lungs: no audible wheezes, crackles and diminished breath sounds all lung ibarra Musculoskeletal: no swelling bilateral lower extremities Neuro: CN II-X grossly intact Constitutional Vital Signs, click to edit/add: Last Vital Signs Temp 98.0 F 11/12/23 07:17 Pulse 59 L 11/12/23 07:07 Resp 7 L 11/12/23 07:07 BP 163/78 H 11/12/23 07:07 Pulse Ox 93 L 11/12/23 07:37 O2 Del Method Vapotherm 11/12/23 07:37 O2 Flow Rate 40 11/12/23 07:37 FiO2 80 11/12/23 07:37 Progress Note: Objective Labs Labs: Short CBC 11/12/23 Range/Units 04:55 WBC 26.5 H (4.0-11.0) 10^3/uL Hgb 8.7 L (12.0-16.0) g/dL Hct 28.4 L (36.0-48.0) % Plt Count 397 (150-450) 10^3/uL BMP 11/12/23 04:55 Sodium 143 Potassium 4.4 Chloride 111 H Carbon Dioxide 24.3 BUN 9.0 Creatinine 0.81 Glucose 152 H Calcium 8.6 Liver Function 11/12/23 Range/Units 04:55 Total Bilirubin 0.3 (0.2-1.0) mg/dL AST 28 (15-37) U/L ALT 15 (14-59) U/L Alkaline Phosphatase 87 (46-116) U/L Albumin 1.7 L (3.4-5.0) g/dL Progress Note: A&P Assessment and Plan (1) Left lower lobe pneumonia: Assessment and Plan: left lower lobe pneumonia as seen on chest x-ray along with small left pleural effusion most likely secondary from chronic rib fractures. Continue on the Zosyn and Levaquin. White blood cell count is 26 cultures pending. Do to night time hypoxia i ordered CTA, no acute PE, still with multifocal pneumonia and left pleural effusion. continue OPEP therapy. Qualifiers: Pneumonia type: due to unspecified organism Qualified Code(s): J18.9 - Pneumonia, unspecified organism (2) Acute hypoxic respiratory failure: Assessment and Plan: requiring high flow oxygen. Continue nebulizer treatments O PEP therapy, and will stop steroid today.. Secondary to pneumonia. (3) Pleural effusion, left: Assessment and Plan: opep therapy, will try a dose of Lasix 40mg IV x 1 (4) Multiple rib fractures: Assessment and Plan: continue pain control, also trying to prevent polypharmacy and respiratory depression/ with narcotics. Qualifiers: Encounter type: subsequent encounter Fracture healing: with delayed healing Fracture type: closed Laterality: left Qualified Code(s): S22.42XG - Multiple fractures of ribs, left side, subsequent encounter for fracture with delayed healing (5) Hypokalemia: Assessment and Plan: continue klorcon 10meq BID (6) Diabetes: Assessment and Plan: continue sliding scale insulin, glucose has been elevated due to steroid use Qualifiers: Diabetes mellitus complication status: without complication Diabetes mellitus ferry terminal supervisor insulin use: without fdc use Diabetes mellitus type: type 2 Qualified Code(s): E11.9 - Type 2 diabetes mellitus without complications (7) Afib: Assessment and Plan: continue metoprolol for rate control. And amiodarone, continue also aspirin and Plavix Qualifiers: Atrial fibrillation type: paroxysmal Qualified Code(s): I48.0 - Paroxysmal atrial fibrillation (8) CAD (coronary artery disease): Assessment and Plan: continue aspirin Plavix and atorvastatin, recent ECHO normal Qualifiers: Associated angina: without angina Coronary Disease-Associated Artery/Lesion type: unspecified vessel or lesion type [place] vs. transplanted heart: unspecified whether [place] or transplanted heart Qualified Code(s): I25.10 - Atherosclerotic heart disease of [place] coronary artery without angina pectoris Plan patient has SCDs for deep vein thrombosis prophylaxis Patient is full code Patient is an inpatient status and is expected to stay more than two nights
[2023-11-12 08:34] LABS: Troponin I High Sensitivity 7.3 pg/mL (4.0-51.3)
[2023-11-12 08:38] LABS: Magnesium 1.7 mg/dL (1.8-2.4)
[2023-11-12] MEDS: CITALOPRAM HYDROBROMIDE 20 MG TABLET PO ×2 (09:06→20:37)
[2023-11-12] MEDS: CLOPIDOGREL BISULFATE 75 MG TABLET PO (09:06)
[2023-11-12] MEDS: AMIODARONE HCL 200 MG TABLET PO (09:06)
[2023-11-12] MEDS: GABAPENTIN 300 MG CAPSULE 600 MG PO ×2 (09:06→20:37)
[2023-11-12] MEDS: ATORVASTATIN CALCIUM 40 MG TABLET 80 MG PO (09:06)
[2023-11-12] MEDS: ASPIRIN 81 MG TAB.CHEW PO (09:06)
[2023-11-12] MEDS: GUAIFENESIN 600 MG TAB.ER.12H PO (09:07)
[2023-11-12] MEDS: POTASSIUM CHLORIDE 10 MEQ ER TABLET PO ×2 (09:07→20:37)
[2023-11-12] MEDS: MORPHINE SULFATE 15 MG TABLET.ER PO (09:07)
[2023-11-12] MEDS: FAMOTIDINE 20 MG TABLET 40 MG PO ×2 (09:07→20:37)
[2023-11-12] MEDS: LEVOFLOXACIN IN DEXTROSE 5 % 750 MG/150 ML IV.SOLN 100 MG IV (09:13)
[2023-11-12] MEDS: FUROSEMIDE 40 MG/4 ML VIAL IVP (10:36)
[2023-11-12 11:18] LABS: Glucometer 218 mg/dL (74-106)
[2023-11-12 16:12] LABS: Glucometer 138 mg/dL (74-106)
[2023-11-12] MEDS: ACETAMINOPHEN 325 MG TABLET 650 MG PO (16:56)
[2023-11-12] MEDS: KETOROLAC TROMETHAMINE 30 MG/ML VIAL 15 MG IVP (20:36)
[2023-11-12 21:36] LABS: Glucometer 279 mg/dL (74-106)
[2023-11-12] MEDS: ENOXAPARIN SODIUM 40 MG/0.4 ML SYRINGE SUBQ (22:05)
[2023-11-12] MEDS: NICOTINE 21 MG PATCH.TD24 TD (22:10)
[2023-11-13] VITALS (27 sets, daily range): BP systolic 108–132; BP diastolic 53–74; PULSE 44–74; RESP 12–20; TEMP 36.6–37.3; O2SAT 90–98
[2023-11-13] MEDS: PIPERACILLIN SODIUM/TAZOBACTAM 3.375 GM in 0.9 % SODIUM CHLORIDE 50 ML IV ×3 (01:59→17:36)
[2023-11-13 05:24] LABS: Basophils Percent Auto 0.1 % (0.2-2.0); Hematocrit 27.7 % (36.0-48.0); Hemoglobin 8.5 g/dL (12.0-16.0); Immature Granulocytes Pct Auto 0.7 % (0.0-0.5); Lymphocytes Percent Auto 6.7 % (20.5-60.0); Mean Corpuscular HGB Conc 30.7 g/dL (29.9-35.2); Mean Corpuscular Hemoglobin 27.7 pg (26.7-34.0); Mean Corpuscular Volume 90.2 fL (81.0-99.0); Mean Platelet Volume 10.5 fL (9.5-13.5); Monocytes Absolute Auto 0.4 10^3/uL (0.3-0.8); Neutrophils Absolute Auto 12.8 10^3/uL (1.4-6.5); Neutrophils Percent Auto 89.5 % (43.0-75.0); Platelet Count 402 10^3/uL (150-450); Red Blood Count 3.07 10^6/uL (4.20-5.40); Red Cell Distribution Width 17.1 % (11.0-15.0); White Blood Count 14.3 10^3/uL (4.0-11.0)
[2023-11-13 06:04] LABS: Alanine Aminotransferase 16 U/L (14-59); Albumin Globulin Ratio 0.4; Albumin Level 1.7 g/dL (3.4-5.0); Alkaline Phosphatase 83 U/L (46-116); Anion Gap 10.2; Aspartate Amino Transferase 19 U/L (15-37); BUN Creatinine Ratio 15.7; Bilirubin Total 0.2 mg/dL (0.2-1.0); Calcium 8.5 mg/dL (8.5-10.1); Chloride 110 mmol/L (98-107); Estimated GFR (African America >60 (>=60); Estimated GFR (Non-African Ame 55 (>=60); Globulin 4.1 g/dL; Glucose 103 mg/dL (74-106); Potassium 3.2 mmol/L (3.5-5.1); Sodium 145 mmol/L (136-145); Total Protein 5.8 g/dL (6.4-8.2)
[2023-11-13] MEDS: LIDOCAINE 5% PATCH 1 PATCH TOPICAL (08:16)
[2023-11-13] MEDS: LACTOSE -REDUCED (ENSURE ORIGINAL 237 ML LIQUID) PO (08:16)
[2023-11-13] MEDS: LEVOFLOXACIN IN DEXTROSE 5 % 750 MG/150 ML IV.SOLN 100 MG IV (08:16)
--- NOTE | 2023-11-13 08:16 | PM.PN ---
Progress Note: Subjective Subjective Interval history: patient is sitting up in the chair this morning. She is in good spirits. She feels she is improving. Pain is better controlled today. She admits to getting some rest last night. She denies fevers or chills, n/v/d. no other issues or complaints except for the continued shortness of breath. Exam Narrative Exam Narrative: General: Patient is alert, and oriented to person, place and time with normal affect, proper hygiene Skin: ecchymoses noted on the left torso, right lower arm with mild swelling Head: atraumatic, acephalic Eyes: PERRLA, no nystagmus present, conjunctiva clear, no scleral icterus Ears: normal gross auditory acuity Heart: Normal rate and rhythm, no murmurs/rubs/gallops Lungs: no audible wheezes, crackles and diminished breath sounds on the left Musculoskeletal: no swelling bilateral lower extremities Neuro: CN II-X grossly intact Constitutional Vital Signs, click to edit/add: Last Vital Signs Temp 98 F 11/13/23 02:16 Pulse 66 11/13/23 07:49 Resp 18 11/13/23 04:00 BP 132/53 11/13/23 05:48 Pulse Ox 94 L 11/13/23 05:52 O2 Del Method Vapotherm 11/13/23 05:51 O2 Flow Rate 40 11/13/23 05:51 FiO2 50 11/13/23 05:51 Progress Note: Objective Labs Labs: Short CBC 11/13/23 Range/Units 04:10 WBC 14.3 H (4.0-11.0) 10^3/uL Hgb 8.5 L (12.0-16.0) g/dL Hct 27.7 L (36.0-48.0) % Plt Count 402 (150-450) 10^3/uL BMP 11/13/23 04:10 Sodium 145 Potassium 3.2 L Chloride 110 H Carbon Dioxide 28.0 BUN 16.0 Creatinine 1.02 Glucose 103 Calcium 8.5 Liver Function 11/13/23 Range/Units 04:10 Total Bilirubin 0.2 (0.2-1.0) mg/dL AST 19 (15-37) U/L ALT 16 (14-59) U/L Alkaline Phosphatase 83 (46-116) U/L Albumin 1.7 L (3.4-5.0) g/dL Progress Note: A&P Assessment and Plan (1) Left lower lobe pneumonia: Assessment and Plan: left lower lobe pneumonia as seen on chest x-ray along with small left pleural effusion secondary from chronic rib fractures. Continue on the Zosyn and Levaquin. White blood cell count is 13 cultures negative. CTA, showed no acute PE, still with multifocal pneumonia and left pleural effusion. continue OPEP therapy. Qualifiers: Pneumonia type: due to unspecified organism Qualified Code(s): J18.9 - Pneumonia, unspecified organism (2) Acute hypoxic respiratory failure: Assessment and Plan: requiring high flow oxygen. Continue nebulizer treatments O PEP therapy. Secondary to pneumonia (3) Pleural effusion, left: Assessment and Plan: opep therapy, continue daily Lasix 40mg IV. Replace potassium, recheck CXR tomorrow. (4) Multiple rib fractures: Assessment and Plan: continue pain control, pain improved on Toradol Qualifiers: Encounter type: subsequent encounter Fracture healing: with delayed healing Fracture type: closed Laterality: left Qualified Code(s): S22.42XG - Multiple fractures of ribs, left side, subsequent encounter for fracture with delayed healing (5) Hypokalemia: Assessment and Plan: klorcon 20meq BID (6) Diabetes: Assessment and Plan: continue sliding scale insulin, glucose has been elevated due to steroid use Qualifiers: Diabetes mellitus complication status: without complication Diabetes mellitus intermodal customer service insulin use: without intermodal customer service use Diabetes mellitus type: type 2 Qualified Code(s): E11.9 - Type 2 diabetes mellitus without complications (7) Afib: Assessment and Plan: continue metoprolol for rate control and amiodarone, continue also aspirin and Plavix Qualifiers: Atrial fibrillation type: paroxysmal Qualified Code(s): I48.0 - Paroxysmal atrial fibrillation (8) CAD (coronary artery disease): Assessment and Plan: continue statin Qualifiers: Associated angina: without angina Coronary Disease-Associated Artery/Lesion type: unspecified vessel or lesion type [place] vs. transplanted heart: unspecified whether [place] or transplanted heart Qualified Code(s): I25.10 - Atherosclerotic heart disease of [place] coronary artery without angina pectoris (9) Hypomagnesemia: Assessment and Plan: replace with 2 grams of IV mag today Plan patient is full code Lovenox for DVT prophylaxis
[2023-11-13] MEDS: ATORVASTATIN CALCIUM 40 MG TABLET 80 MG PO (08:17)
[2023-11-13] MEDS: ASPIRIN 81 MG TAB.CHEW PO (08:17)
[2023-11-13] MEDS: AMIODARONE HCL 200 MG TABLET PO (08:17)
[2023-11-13] MEDS: GABAPENTIN 300 MG CAPSULE 600 MG PO ×2 (08:17→21:22)
[2023-11-13] MEDS: CLOPIDOGREL BISULFATE 75 MG TABLET PO (08:17)
[2023-11-13] MEDS: FAMOTIDINE 20 MG TABLET 40 MG PO ×2 (08:18→21:22)
[2023-11-13] MEDS: CITALOPRAM HYDROBROMIDE 20 MG TABLET PO ×2 (08:18→21:22)
[2023-11-13] MEDS: POTASSIUM CHLORIDE 10 MEQ ER TABLET PO (08:18)
[2023-11-13] MEDS: MORPHINE SULFATE 15 MG TABLET.ER PO (08:18)
[2023-11-13] MEDS: GUAIFENESIN 600 MG TAB.ER.12H PO ×2 (08:19→21:22)
[2023-11-13] MEDS: POTASSIUM CHLORIDE 10 MEQ ER TABLET 20 MEQ PO ×2 (08:31→21:22)
[2023-11-13] MEDS: FUROSEMIDE 20 MG/2 ML VIAL IVP (08:31)
--- NOTE | 2023-11-13 10:42 | CM.NOTE ---
Rounds made with Dr. Mccollum, no discharge today. Encouraged pt to keep moving around and ambulate with PT.
--- NOTE | 2023-11-13 11:27 | RESP.RT ---
titrated down to 40L/40%
[2023-11-13 12:00] LABS: Glucometer 155 mg/dL (74-106)
--- NOTE | 2023-11-13 12:39 | SWNOTE1 ---
BRANDON notified Francois LAGUNA, pt is not discharging today
[2023-11-13] MEDS: MAGNESIUM SULFATE IN WATER 2 GM/50 ML PREMIX IV (14:13)
[2023-11-13] MEDS: MIDODRINE HCL 5 MG TABLET 10 MG PO ×2 (14:13→21:22)
--- NOTE | 2023-11-13 14:20 | SWNOTE1 ---
BRANDON did receive call from Obdulia at [facility] and since pt is not the [place], the [place] do not cover home health. Obdulia is having administration look in to [facility] option and see if this will cover for HH. She will call back and let me know. If it is not covered it will be $300.00 per visit out of pocket. This would be the case for any HH referral since they all run it through insurance. BRANDON to update pt and doctor.
--- NOTE | 2023-11-13 14:23 | SWNOTE1 ---
BRANDON heard back from Obdulia at [facility] and they are not able to get her any coverage for HH under her insurance.
--- NOTE | 2023-11-13 15:34 | RESP.RT ---
decreased to 5 LPM NC
--- NOTE | 2023-11-13 15:39 | SWNOTE1 ---
SW let pt know that pt's insurance does not cover home health since she is not the . SW offered out of pocket, private pay HH, but pt does not have funds. Pt voiced she has her daughter to assist her. SW asked pt if she has ever thought of applying for medicaid. Pt voiced she has not, SW offered to bring medicaid sonia, at this time pt does not want medicaid sonia.
[2023-11-13 17:00] LABS: Glucometer 175 mg/dL (74-106)
[2023-11-13] MEDS: INSULIN ASPART 300 UNIT/3 ML PEN SUBQ ×2 (17:01→21:23)
[2023-11-13 21:20] LABS: Glucometer 208 mg/dL (74-106)
[2023-11-13] MEDS: METOPROLOL SUCCINATE 25 MG TAB.ER.24H PO (21:22)
[2023-11-13] MEDS: ENOXAPARIN SODIUM 40 MG/0.4 ML SYRINGE SUBQ (23:15)
[2023-11-13] MEDS: ALPRAZOLAM 1 MG TABLET PO (23:20)
[2023-11-14] VITALS (31 sets, daily range): BP systolic 94–102; BP diastolic 47–54; PULSE 50–134; RESP 12–20; TEMP 36.7–37.9; O2SAT 89–96
[2023-11-14] MEDS: PIPERACILLIN SODIUM/TAZOBACTAM 3.375 GM in 0.9 % SODIUM CHLORIDE 50 ML IV ×3 (03:02→17:34)
[2023-11-14 04:35] LABS: Eosinophils Percent Auto 0.4 % (0.9-7.0); Hematocrit 27.2 % (36.0-48.0); Hemoglobin 8.4 g/dL (12.0-16.0); Immature Granulocytes Abs Auto 0.04 10^3/uL (0.00-0.03); Immature Granulocytes Pct Auto 0.4 % (0.0-0.5); Lymphocytes Absolute Auto 1.6 10^3/uL (1.2-3.8); Lymphocytes Percent Auto 17.2 % (20.5-60.0); Mean Corpuscular HGB Conc 30.9 g/dL (29.9-35.2); Mean Corpuscular Hemoglobin 27.6 pg (26.7-34.0); Mean Corpuscular Volume 89.5 fL (81.0-99.0); Monocytes Absolute Auto 0.3 10^3/uL (0.3-0.8); Neutrophils Absolute Auto 7.5 10^3/uL (1.4-6.5); Platelet Count 390 10^3/uL (150-450); Red Blood Count 3.04 10^6/uL (4.20-5.40); Red Cell Distribution Width 16.7 % (11.0-15.0); White Blood Count 9.6 10^3/uL (4.0-11.0)
[2023-11-14 04:50] LABS: Alanine Aminotransferase 24 U/L (14-59); Albumin Globulin Ratio 0.4; Albumin Level 1.7 g/dL (3.4-5.0); Alkaline Phosphatase 81 U/L (46-116); Aspartate Amino Transferase 27 U/L (15-37); Bilirubin Total 0.3 mg/dL (0.2-1.0); Calcium 8.1 mg/dL (8.5-10.1); Carbon Dioxide 28.5 mmol/L (21.0-32.0); Chloride 108 mmol/L (98-107); Estimated GFR (African America >60 (>=60); Estimated GFR (Non-African Ame 56 (>=60); Globulin 3.8 g/dL; Glucose 80 mg/dL (74-106); Potassium 3.5 mmol/L (3.5-5.1); Sodium 144 mmol/L (136-145); Total Protein 5.5 g/dL (6.4-8.2)
[2023-11-14] MEDS: MIDODRINE HCL 5 MG TABLET 10 MG PO ×3 (06:52→21:12)
[2023-11-14] MEDS: LEVOFLOXACIN IN DEXTROSE 5 % 750 MG/150 ML IV.SOLN 100 MG IV (08:21)
[2023-11-14] MEDS: GABAPENTIN 300 MG CAPSULE 600 MG PO ×2 (08:22→21:12)
[2023-11-14] MEDS: ASPIRIN 81 MG TAB.CHEW PO (08:22)
[2023-11-14] MEDS: CITALOPRAM HYDROBROMIDE 20 MG TABLET PO ×2 (08:22→21:12)
[2023-11-14] MEDS: LIDOCAINE 5% PATCH 1 PATCH TOPICAL (08:22)
[2023-11-14] MEDS: FAMOTIDINE 20 MG TABLET 40 MG PO ×2 (08:23→21:13)
[2023-11-14] MEDS: ATORVASTATIN CALCIUM 40 MG TABLET 80 MG PO (08:23)
[2023-11-14] MEDS: POTASSIUM CHLORIDE 10 MEQ ER TABLET 20 MEQ PO ×2 (08:23→21:12)
[2023-11-14] MEDS: CLOPIDOGREL BISULFATE 75 MG TABLET PO (08:23)
[2023-11-14] MEDS: AMIODARONE HCL 200 MG TABLET PO (08:23)
[2023-11-14] MEDS: GUAIFENESIN 600 MG TAB.ER.12H PO ×2 (08:24→21:12)
[2023-11-14] MEDS: MORPHINE SULFATE 15 MG TABLET.ER PO (08:25)
--- NOTE | 2023-11-14 08:40 | PM.PN ---
Progress Note: Subjective Subjective Interval history: patient still having shortness of breath with small walks and some increased left rib pain today. Repeat X-ray shows persistent left pleural effusion but with improved pneumonia. she denies any n/v/d. she has been having good amount of urine output after diuresis. No chest pain, shortness of breath. She continues her OPEP therapy Exam Narrative Exam Narrative: General: Patient is alert, and oriented to person, place and time with normal affect, proper hygiene Skin: multiple ecchymosis on bilateral upper arms Head: atraumatic, acephalic Heart: Normal rate and rhythm, no murmurs/rubs/gallops Lungs: audible wheezes, crackles and diminished breath sounds worse on the left Abdomen: Normal audible bowel sounds, no distension, No palpable masses, no organomegaly, no rebound/guarding/ or rigidity Musculoskeletal: no swelling bilateral lower extremities Neuro: CN II-X grossly intact Constitutional Vital Signs, click to edit/add: Last Vital Signs Temp 98.8 F 11/14/23 03:16 Pulse 50 L 11/14/23 06:02 Resp 20 11/14/23 04:04 BP 123/60 11/13/23 23:24 Pulse Ox 94 L 11/14/23 06:02 O2 Del Method Vapotherm 11/14/23 03:19 O2 Flow Rate 40 11/14/23 03:19 FiO2 50 11/14/23 03:19 Progress Note: Objective Labs Labs: Short CBC 11/14/23 Range/Units 04:13 WBC 9.6 (4.0-11.0) 10^3/uL Hgb 8.4 L (12.0-16.0) g/dL Hct 27.2 L (36.0-48.0) % Plt Count 390 (150-450) 10^3/uL BMP 11/14/23 04:13 Sodium 144 Potassium 3.5 Chloride 108 H Carbon Dioxide 28.5 BUN 15.0 Creatinine 1.00 Glucose 80 Calcium 8.1 L Liver Function 11/14/23 Range/Units 04:13 Total Bilirubin 0.3 (0.2-1.0) mg/dL AST 27 (15-37) U/L ALT 24 (14-59) U/L Alkaline Phosphatase 81 (46-116) U/L Albumin 1.7 L (3.4-5.0) g/dL Progress Note: A&P Assessment and Plan (1) Left lower lobe pneumonia: Assessment and Plan: left lower lobe pneumonia, secondary from chronic rib fractures. Continue on the Zosyn and Levaquin. continue OPEP therapy, improved pneumonia on chest X-ray. normal white count Qualifiers: Pneumonia type: due to unspecified organism Qualified Code(s): J18.9 - Pneumonia, unspecified organism (2) Acute hypoxic respiratory failure: Assessment and Plan: requiring high flow oxygen. Continue nebulizer treatments O PEP therapy. Secondary to pneumonia, maybe try BIPAP? if she would tolerate (3) Pleural effusion, left: Assessment and Plan: opep therapy, continue daily Lasix 40mg IV. Replace potassium. Discussed case with IR-Dr. Guzman, feels that more fluid from diuresis needs to be removed before a tap, also increased risks may outweigh benefits. normal ECHO, will get cardiology involvement for diuretic suggestions (4) Multiple rib fractures: Assessment and Plan: continue pain control Qualifiers: Encounter type: subsequent encounter Fracture healing: with delayed healing Fracture type: closed Laterality: left Qualified Code(s): S22.42XG - Multiple fractures of ribs, left side, subsequent encounter for fracture with delayed healing (5) Hypokalemia: Assessment and Plan: klorcon 20meq BID (6) Diabetes: Assessment and Plan: continue sliding scale insulin, glucose has been elevated due to steroid use Qualifiers: Diabetes mellitus complication status: without complication Diabetes mellitus assistant terminal manager insulin use: without fci use Diabetes mellitus type: type 2 Qualified Code(s): E11.9 - Type 2 diabetes mellitus without complications (7) Afib: Assessment and Plan: continue metoprolol for rate control and amiodarone, continue also aspirin and Plavix Qualifiers: Atrial fibrillation type: paroxysmal Qualified Code(s): I48.0 - Paroxysmal atrial fibrillation (8) CAD (coronary artery disease): Assessment and Plan: continue statin Qualifiers: Associated angina: without angina Coronary Disease-Associated Artery/Lesion type: unspecified vessel or lesion type [place] vs. transplanted heart: unspecified whether [place] or transplanted heart Qualified Code(s): I25.10 - Atherosclerotic heart disease of [place] coronary artery without angina pectoris (9) Hypomagnesemia: Assessment and Plan: replace with 2 grams of IV mag today Plan patient is full code Lovenox for DVT prophylaxis
--- NOTE | 2023-11-14 08:46 | XR_ITS ---
The [address] [address] Patient Name: HONEY MONTES MRN: [id number] date: 1960 Sex: F Assigned Patient Location: ICU Current Patient Location: ICU Accession/Order Number: [id number] Exam Date: 11/14/2023 08:55 Report Date: 11/14/2023 09:20 At the request of: DESTINEY SOLIZ Procedure: XR chest 1V EXAMINATION: XR chest 1V HISTORY: shortness of breath COMPARISON: XR chest 11/11/2023 FINDINGS: LUNGS: Complete opacification of left lung base obscuring the heart and diaphragm margins. Dense ground glass opacities throughout the lungs. VASCULATURE: No increased pulmonary vasculature. PLEURA: Large left pleural effusion. CARDIAC: No cardiomegaly or cardiac silhouette abnormality. MEDIASTINUM: No visible mass or adenopathy. BONES: No fracture or visible bone lesion. OTHER: Negative. XR/XR chest 1V IMPRESSION: 1. Large left pleural effusion and likely moderate left basilar atelectasis or infiltrates; improved. 2. Diffuse bilateral pulmonary edema; stable to slightly improved. Electronically authenticated by: ORLANDO LYNN Date: 11/14/2023 09:20
--- NOTE | 2023-11-14 10:47 | CM.NOTE ---
Rounds made with Dr. Mccollum, continue to attempt to wean oxygen. No discharge today, repeat chest x-ray today.
[2023-11-14 11:24] LABS: pH ABG 7.495 (7.350-7.450)
[2023-11-14 11:25] LABS: ABG PCO2 34.5 mmHg (35.0-45.0); Allen Test POSITIVE (POSITIVE); Base Excess ABG 3.3 mmol/L (-2.0-2.0); HCO3 ABG 26.6 mmol/L (22.0-26.0); Liters per Minute 5; O2 Mode NC; Oxygen Saturation ABG 89.2 %; Puncture Site LR
[2023-11-14 11:26] LABS: PO2 ABG 54.8 mmHg (80.0-100.0)
[2023-11-14] MEDS: FUROSEMIDE 20 MG TABLET PO (12:22)
[2023-11-14] MEDS: ALPRAZOLAM 1 MG TABLET PO ×2 (12:23→21:12)
--- NOTE | 2023-11-14 12:57 | SWNOTE1 ---
SW spoke with case management and pt may need rehab. SW reached out to [facility] and they do take and they will need referral to check the [place] benefits since she is not the vet. BRANDON spoke with pt and in room. SW spoke with her about possibility of pt going to rehab to help with her oxygen and breathing as well as therapy. BRANDON explained not sure if the insurance will cover, but would to find out by sending a referral so we can either rule out rehab or know it is an option. Pt and are agreeable. SW sent referral to [facility].
--- NOTE | 2023-11-14 14:59 | SWNOTE1 ---
SW received email from Katherine at [facility] and pt's insurance is good to go. They would be able to skill her. There concern is her oxygen stats at 5 liters, they can only go up to 5. BRANDON to update doctor. BRANDON has message out to [facility] to see if it needs precerted.
--- NOTE | 2023-11-14 15:07 | P.CACN_ITS ---
<Statement entered by Don Friedman MD - 11/15/23 12:48> This documentation has been reviewed and approved. I have reviewed and evaluated and agree with the plan as mentioned. History of Present Illness History of Present Illness Chief complaint: altered mental PNEUMONIA Narrative: This is a 63-year-old female patient with a past medical history as outlined below including hx of breast, stomach, and neuroendocrine carcinomas, a-fib, CAD s/p NV x 2 and stents x 5, chronic hypotension, DM2, hypothyroidism, and a recent admission to this facility with pneumonia and right rib fractures, discharged on 10/27/2023; who presented to the ED yesterday evening via EMS with family reporting the patient has been more confused and lethargic and the patient reporting increasing shortness of breath. Workup in the ED revealed hypotension (78/53), fever (100.1, 100.7), and hypoxia (86% on RA). Labs revealed leukocytosis (16.3), hypokalemia (3.1), and hypomagnesemia (1.5). CXR revealed LLL pneumonia, pulmonary vascular congestion, moderate L pl effusion. Oxygen supplementation had to be increased to Vapotherm (40 L/70% FiO2) in order to keep her O2 sats above 90% in the ED. She was admitted to the hospitalist service overnight as an inpatient for pneumonia. Cardiology consulted for recommendations regarding diuresis. patient has been diuresed given elevated BNP and CXR showing concerns for diffuse pulm congestion/large left pleural effusions with likely moderate left basilar atelectasis. patient states she suffered from multiple falls recently d/t balance issues and suffered from rib fractures a few weeks ago. she recently began to get very short of breath without improvement which brought her to [facility] ED. she has been on IV lasix 40mg daily with good urine output. IR was consulted to consider draining left pleural effusion but they were concerned patient still r equires so diuresis before considering. her ABG 11/14/23 shows resp alkalosis likely d/t hyperventilation Review of Systems ROS Constitutional Reports: fatigue Cardiovascular Reports: shortness of breath with exertion; Denies: chest pain or palpitations Respiratory Reports: shortness of breath and cough [facility] Medical History (Updated 11/13/23 @ 13:51 by Yenni Mccollum DO) Acute metabolic encephalopathy ?G93.41 - Metabolic encephalopathy (ICD-10) GERD (gastroesophageal reflux disease) ?K21.9 - Gastro-esophageal reflux disease without esophagitis (ICD-10) Hypothyroidism ?E03.9 - Hypothyroidism, unspecified (ICD-10) Multiple falls ?R29.6 - Repeated falls (ICD-10) Bradycardia ?R00.1 - Bradycardia, unspecified (ICD-10) Constipation ?K59.00 - Constipation, unspecified (ICD-10) Leukocytosis ?D72.829 - Elevated white blood cell count, unspecified (ICD-10) Depression ?F32.A - Depression, unspecified (ICD-10) HLD (hyperlipidemia) ?E78.5 - Hyperlipidemia, unspecified (ICD-10) Chronic orthostatic hypotension ?I95.1 - Orthostatic hypotension (ICD-10) H/O malignant neoplasm of breast ?Z85.3 - Personal history of malignant neoplasm of breast (ICD-10) 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 ?C7A.8 - Other malignant neuroendocrine tumors (ICD-10) ?C7B.8 - Other secondary neuroendocrine tumors (ICD-10) Stomach cancer ?C16.9 - Malignant neoplasm of stomach, unspecified (ICD-10) Perforated intestine ?K63.1 - Perforation of intestine (nontraumatic) (ICD-10) Acute confusion ?R41.0 - Disorientation, unspecified (ICD-10) Frequent falls ?R29.6 - Repeated falls (ICD-10) Chronic hypokalemia ?E87.6 - Hypokalemia (ICD-10) Surgical History (Updated 10/26/23 @ 05:24 by Violet Aly RN) S/P lumpectomy, right breast ?Z98.890 - Other specified postprocedural states (ICD-10) H/O: hysterectomy ?Z90.710 - Acquired absence of both cervix and uterus (ICD-10) H/O gastric bypass ?Z98.84 - Bariatric surgery status (ICD-10) Family History (Updated 07/02/23 @ 15:09 by Umm Mercado LPN) Mother Family history of COPD (chronic obstructive pulmonary disease) Family history of cancer Family history of diabetes mellitus Grandmother Family history of cancer Social History (Updated 07/02/23 @ 15:10 by Umm Mercado, [employer]) Within the past year, how often did you have a drink containing alcohol: never Within the past year, how many standard drinks containing alcohol did you have on a typical day: 1 or 2 Within the past year, how often did you have six or more drinks on one occasion: never Total score: 0 Score interpretation: A score less than 3 is consistent with normal alcohol consumption. Smoking status: Current every day smoker Second hand tobacco smoke exposure: Yes Non-prescribed substance use: denies use Previous occupational history: retired Known occupational exposures/hazards: No Highest level of school completed/degree received: high school graduate Do you want help with school or training: No Are you now , , , , never or living with a partner: In a typical week, how many times do you talk on the telephone with family, friends, or neighbors: 3 or more times per week How often do you get together with friends or relatives: 3 or more times per week How often do you attend confucianist or hoahaoism services: never Do you belong to any clubs or organizations such as confucianist groups unions, [employer] or athletic groups, or school groups: no Total score: 2 Score interpretation: A score of greater than or equal to 2 indicates the lowest level of social isolation. Little interest or pleasure in doing things: not at all Feeling down, depressed, or hopeless: not at all Feel stressed/tense/nervous/anxious/difficulty sleeping: not at all Due to disability, difficulty making decisions: No Do you think of yourself as: straight/heterosexual Gender Identity: female Meds Home Medications and Allergies Home Medications Medication Instructions Recorded Confirmed Type alprazolam 1 mg tablet 1 mg PO TID PRN anxiety 06/10/23 11/09/23 History clopidogrel 75 mg tablet 75 mg PO DAILY 06/10/23 11/09/23 History midodrine 10 mg tablet 10 mg PO TID 06/10/23 11/09/23 History nitroglycerin 0.4 mg sublingual 0.4 mg sublingual Q5M PRN chest 06/10/23 11/09/23 History tablet pain atorvastatin 80 mg tablet 80 mg PO DAILY 07/03/23 11/09/23 History gabapentin 600 mg tablet 600 mg PO BID 07/03/23 11/09/23 History metformin 500 mg tablet 500 mg PO BID 07/03/23 10/25/23 History oxycodone-acetaminophen 7.5 mg-325 1 tab PO Q8H PRN pain 07/03/23 11/09/23 History mg tablet pantoprazole 40 mg tablet,delayed 40 mg PO DAILY 07/03/23 11/09/23 History release potassium chloride 10 mEq 10 meq PO BID 07/03/23 11/09/23 History capsule,extended release aspirin 81 mg chewable tablet 81 mg PO DAILY 10/26/23 11/09/23 History metformin 500 mg tablet 500 mg PO BIDWM #60 tabs 10/27/23 Rx amiodarone 200 mg tablet 200 mg PO DAILY 11/09/23 11/09/23 History citalopram 20 mg tablet (Celexa) 20 mg PO BID 11/09/23 11/09/23 History furosemide 20 mg tablet 20 mg PO DAILY 11/09/23 11/09/23 History metoprolol succinate 25 mg 25 mg PO .QHS 11/09/23 11/09/23 History tablet,extended release 24 hr morphine 20 mg capsule,extended 20 mg PO Q12H 11/09/23 11/09/23 History release pellets naloxegol 25 mg tablet (Movantik) 25 mg PO DAILY 11/09/23 11/09/23 History zolpidem 10 mg tablet (Ambien) 10 mg PO .qhs PRN sleep 11/09/23 11/09/23 History Allergies Allergy/AdvReac Type Severity Reaction Status Date / Time No Known Drug Allergies Allergy Verified 11/08/23 21:19 Exam Constitutional Vital Signs, click to edit/add: Last Vital Signs Temp 98.0 F 11/14/23 14:54 Pulse 67 11/14/23 14:54 Resp 20 11/14/23 14:54 BP 102/50 11/14/23 14:54 Pulse Ox 90 L 11/14/23 14:54 O2 Del Method High Flow Nasal Cannula 11/14/23 14:54 O2 Flow Rate 5 11/14/23 14:54 FiO2 50 11/14/23 03:19 Common normals: oriented x3 General appearance: cooperative and well developed Orientation/consciousness: Yes awake, Yes oriented to person, Yes oriented to place and Yes oriented to time Respiratory Effort & inspection: able to speak in complete sentences, symmetric chest movement, tachypneic and uses accessory muscles Auscultation: crackles and diminished lung sounds Other: LLL diminished Cardio Common normals: no JVD, regular rate and regular rhythm Rhythm: regular rhythm Results Labs and Meds Lab results: Cardiac Enzymes 11/14/23 Range/Units 04:13 AST 27 (15-37) U/L CBC 11/14/23 Range/Units 04:13 WBC 9.6 (4.0-11.0) 10^3/uL RBC 3.04 L (4.20-5.40) 10^6/uL Hgb 8.4 L (12.0-16.0) g/dL Hct 27.2 L (36.0-48.0) % Plt Count 390 (150-450) 10^3/uL Neut # (Auto) 7.5 H (1.4-6.5) 10^3/uL Lymph # (Auto) 1.6 (1.2-3.8) 10^3/uL [place] # (Auto) 0.3 (0.3-0.8) 10^3/uL Eos # (Auto) 0.0 (0.0-0.7) 10^3/uL Baso # (Auto) 0.0 (0.0-0.1) 10^3/uL Comprehensive Metabolic Panel 11/14/23 Range/Units 04:13 Sodium 144 (136-145) mmol/L Potassium 3.5 (3.5-5.1) mmol/L Chloride 108 H (98-107) mmol/L Carbon Dioxide 28.5 (21.0-32.0) mmol/L BUN 15.0 (7.0-18.0) mg/dL Creatinine 1.00 (0.55-1.02) mg/dL Glucose 80 (74-106) mg/dL Calcium 8.1 L (8.5-10.1) mg/dL AST 27 (15-37) U/L ALT 24 (14-59) U/L Alkaline Phosphatase 81 (46-116) U/L Total Protein 5.5 L (6.4-8.2) g/dL Albumin 1.7 L (3.4-5.0) g/dL Intake and Output 11/13/23 11/14/23 11/14/23 23:59 07:59 15:59 Intake Total 50 / 350 50 / 350 200 / 200 Output Total 1200 / 2200 Balance -1150 / -1850 50 / -1850 200 / 200 Intake: IV 50 / 350 50 / 350 200 / 200 Levofloxacin in Dextrose 5 % 150 / 150 750 mg In 150 ml @ 100 mls/hr IV Q24H COUNT INCLUDES THE [facility] Rx#:[id number] Piperacillin Sodium/Tazobactam 50 / 150 50 / 150 50 / 50 3.375 gm In 0.9 % Sodium Chloride 50 ml @ 12.5 mls/hr IV Q8H [facility] Rx#:[id number] Output: Urine 1200 / 2200 Imaging and Cardiology Echo: report reviewed ECG results: report reviewed EKG Interpretation ECG shows: sinus rhythm Assessment and Plan Assessment and Plan (1) Left lower lobe pneumonia: Qualifiers: Pneumonia type: due to unspecified organism Qualified Code(s): J18.9 - Pneumonia, unspecified organism (2) Acute hypoxic respiratory failure: (3) Pleural effusion, left: (4) Multiple rib fractures: Qualifiers: Encounter type: subsequent encounter Fracture healing: with delayed healing Fracture type: closed Laterality: left Qualified Code(s): S22.42XG - Multiple fractures of ribs, left side, subsequent encounter for fracture with delayed healing (5) Hypokalemia: (6) Diabetes: Qualifiers: Diabetes mellitus complication status: without complication Diabetes mellitus usp insulin use: without watermelon inspector use Diabetes mellitus type: type 2 Qualified Code(s): E11.9 - Type 2 diabetes mellitus without complications (7) Afib: Qualifiers: Atrial fibrillation type: paroxysmal Qualified Code(s): I48.0 - Paroxysmal atrial fibrillation (8) CAD (coronary artery disease): Qualifiers: Associated angina: without angina Coronary Disease-Associated Artery/Lesion type: unspecified vessel or lesion type [place] vs. transplanted heart: unspecified whether [place] or transplanted heart Qualified Code(s): I25.10 - Atherosclerotic heart disease of [place] coronary artery without angina pectoris (9) Hypomagnesemia: Plan #pleural effusion, diuresis recommendations -left sided pleural effusion, large and essentially unchanged from admission -CXR is improving regarding pulm congestion, repeat in AM -would recommend continuing iV lasix 40mg daily at least for today 11/14/23 - monitor renal function -likely she needs some sort of intervention for pleural effusion given no change on diuresis -would also recommend trying alternating with bipap/NIV every 4hours to see if this will help
--- NOTE | 2023-11-14 15:09 | SWNOTE1 ---
No precert is required and [facility] is able to accept. [facility] would like to see how pt does on nasal canula before pt is discharged. SW to update nursing, family, and doctor.
[2023-11-14] MEDS: FUROSEMIDE 40 MG/4 ML VIAL IVP (16:34)
[2023-11-14] MEDS: INSULIN ASPART 300 UNIT/3 ML PEN SUBQ (16:34)
[2023-11-14 16:42] LABS: Glucometer 166 mg/dL (74-106)
[2023-11-14] MEDS: NICOTINE 21 MG PATCH.TD24 TD (21:11)
[2023-11-14 21:12] LABS: Glucometer 97 mg/dL (74-106)
[2023-11-14] MEDS: METOPROLOL SUCCINATE 25 MG TAB.ER.24H PO (21:13)
[2023-11-14] MEDS: ENOXAPARIN SODIUM 40 MG/0.4 ML SYRINGE SUBQ (22:32)
[2023-11-15] VITALS (43 sets, daily range): BP systolic 78–134; BP diastolic 37–74; PULSE 48–79; RESP 8–22; TEMP 36.1–36.9; O2SAT 91–99
[2023-11-15] MEDS: PIPERACILLIN SODIUM/TAZOBACTAM 3.375 GM in 0.9 % SODIUM CHLORIDE 50 ML IV ×3 (02:28→17:07)
--- NOTE | 2023-11-15 03:12 | RESP.RT ---
fio2 decreased to 30%
[2023-11-15] MEDS: MIDODRINE HCL 5 MG TABLET 10 MG PO ×3 (05:23→21:38)
--- NOTE | 2023-11-15 08:21 | P.PN_ITS ---
Progress Note: Subjective Subjective Interval history: Patient still asking for medications and they make her drowsy, had a near fall getting up with PT today. Will address and decrease Xanax and MS Contin. She is about the same today. on 5L NC. left rib pain still present but improved. slight sob, but very fatigued with exertion. No other new issues or concerns. She was able to tolerate BIPAP yesterday. Exam Narrative Exam Narrative: General: Patient is alert, and oriented to person, place and time, frail appearing Skin: multiple ecchymosis bilateral arms from lab draws, dry skin Head: atraumatic, acephalic Eyes: PERRLA, no nystagmus present, conjunctiva clear, no scleral icterus Heart: Normal rate and rhythm, no murmurs/rubs/gallops Lungs: no audible wheezes, crackles and dimnished breath sounds all lung ibarra L>R Abdomen: Normal audible bowel sounds, no distension, No palpable masses, no organomegaly, no rebound/guarding/ or rigidity Musculoskeletal: no swelling bilateral lower extremities Neuro: CN II-X grossly intact Constitutional Vital Signs, click to edit/add: Last Vital Signs Temp 98.3 F 11/15/23 07:00 Pulse 61 11/15/23 07:00 Resp 16 11/15/23 07:00 BP 122/53 11/15/23 07:00 Pulse Ox 91 L 11/15/23 07:32 O2 Del Method Nasal Cannula 11/15/23 07:32 O2 Flow Rate 6 11/15/23 07:32 FiO2 40 11/15/23 03:00 Progress Note: A&P Assessment and Plan (1) Left lower lobe pneumonia: Assessment and Plan: completed 5 days of Levaquin 750mg daily, continue zosyn. continue OPEP therapy, improved pneumonia on chest X-ray. normal white count Qualifiers: Pneumonia type: due to unspecified organism Qualified Code(s): J18.9 - Pneumonia, unspecified organism (2) Acute hypoxic respiratory failure: Assessment and Plan: requiring high flow oxygen. Continue nebulizer treatments O PEP therapy. Secondary to pneumonia, pleural effusions:continue BIPAP 2 hours on and off while awake, chest X-ray showed slight improvement. (3) Pleural effusion, left: Assessment and Plan: BIPAP helped, lasix 40mg IV daily, good amount of fluid output, monitor electrolytes. continue lasix 40mg IV daily. (4) Multiple rib fractures: Assessment and Plan: continue pain control but decrease sedative medications today of the xanax and morphine Qualifiers: Encounter type: subsequent encounter Fracture healing: with delayed healing Fracture type: closed Laterality: left Qualified Code(s): S22.42XG - Multiple fractures of ribs, left side, subsequent encounter for fracture with delayed healing (5) Hypokalemia: Assessment and Plan: klorcon 20meq BID (6) Diabetes: Assessment and Plan: continue sliding scale insulin Qualifiers: Diabetes mellitus complication status: without complication Diabetes mellitus care home insulin use: without care home use Diabetes mellitus type: type 2 Qualified Code(s): E11.9 - Type 2 diabetes mellitus without complications (7) Afib: Assessment and Plan: continue metoprolol for rate control and amiodarone, continue also aspirin and Plavix Qualifiers: Atrial fibrillation type: paroxysmal Qualified Code(s): I48.0 - Paroxysmal atrial fibrillation (8) CAD (coronary artery disease): Assessment and Plan: continue statin Qualifiers: Associated angina: without angina Coronary Disease-Associated Artery/Lesion type: unspecified vessel or lesion type [place] vs. transplanted heart: unspecified whether [place] or transplanted heart Qualified Code(s): I25.10 - Atherosclerotic heart disease of [place] coronary artery without angina pectoris (9) Hypomagnesemia: Assessment and Plan: monitor daily and replace Plan patient is full code Lovenox for DVT prophylaxis slow improvement
[2023-11-15] MEDS: GABAPENTIN 300 MG CAPSULE 600 MG PO ×2 (08:38→20:30)
[2023-11-15] MEDS: FAMOTIDINE 20 MG TABLET 40 MG PO ×2 (08:38→20:34)
[2023-11-15] MEDS: ATORVASTATIN CALCIUM 40 MG TABLET 80 MG PO (08:38)
[2023-11-15] MEDS: CLOPIDOGREL BISULFATE 75 MG TABLET PO (08:39)
[2023-11-15] MEDS: AMIODARONE HCL 200 MG TABLET PO (08:39)
[2023-11-15] MEDS: POTASSIUM CHLORIDE 10 MEQ ER TABLET 20 MEQ PO ×2 (08:39→20:32)
[2023-11-15] MEDS: CITALOPRAM HYDROBROMIDE 20 MG TABLET PO ×2 (08:39→20:34)
[2023-11-15] MEDS: GUAIFENESIN 600 MG TAB.ER.12H PO ×2 (08:39→20:38)
[2023-11-15] MEDS: ASPIRIN 81 MG TAB.CHEW PO (08:40)
[2023-11-15] MEDS: MORPHINE SULFATE 15 MG TABLET.ER PO (08:40)
[2023-11-15] MEDS: ALPRAZOLAM 1 MG TABLET PO (08:43)
[2023-11-15] MEDS: FUROSEMIDE 20 MG TABLET PO (08:43)
[2023-11-15] MEDS: LEVOFLOXACIN IN DEXTROSE 5 % 750 MG/150 ML IV.SOLN 100 MG IV (09:04)
[2023-11-15] MEDS: LIDOCAINE 5% PATCH 1 PATCH TOPICAL (09:05)
[2023-11-15 09:23] LABS: Magnesium 1.8 mg/dL (1.8-2.4)
--- NOTE | 2023-11-15 09:30 | CM.NOTE ---
Rounds made with Dr. Mccollum, no discharge today. Will continue diuretics and attempt to wean oxygen. Repeat chest x-ray this AM.
--- NOTE | 2023-11-15 10:09 | XR_ITS ---
The [address] [address] Patient Name: HONEY MONTES MRN: [id number] date: 1960 Sex: F Assigned Patient Location: ICU Current Patient Location: ICU Accession/Order Number: [id number] Exam Date: 11/15/2023 10:40 Report Date: 11/15/2023 11:04 At the request of: DESTINEY SOLIZ Procedure: XR chest 1V EXAM: Portable chest REASON FOR EXAM: Shortness of breath. TECHNIQUE: A portable frontal view of the chest was obtained. COMPARISON: 11/14/2023. FINDINGS: The lungs are well-inflated and and show stable mild pulmonary and interstitial edema with a stable moderate-sized left pleural effusion. The heart and mediastinum are grossly stable in appearance. There is no mass or pathologic adenopathy. Osseous structures are stable in appearance. XR/XR chest 1V IMPRESSION: Overall stable exam with an appearance most consistent with changes of congestive heart failure. Electronically authenticated by: SEDRICK BABB Date: 11/15/2023 11:04
--- NOTE | 2023-11-15 10:30 | REH.PTDLY ---
Physical Therapy Daily Note PT Daily Note/Assess Start: 11/10/23 09:14 Freq: Status: Active Protocol: Document 11/15/23 10:20 RICH (Rec: 11/15/23 10:30 RICH [id number]) Physical Therapy Daily Note/Assessment Time In 09:25 Time Out 09:39 Subjective Pt up in chair and agreeable to therapy, in good spirits. Therapeutic Exercise Minutes (minutes) 8 Therapeutic Exercise Units 1 Therapeutic Exercise Treatment SpO2 at 96% on ear lobe, nursing states they have struggled with getting correct SpO2 readings. Sitting exs performed in chair 10x ea for improved mobility and strength . Exs included AP, LAQ, hip abd, marching, and hip add with no complaints. Therapeutic Activity Minutes (minutes) 5 Therapeutic Activity Units 0 Chair Transfer Ability Standby Assistance Therapeutic Activity Comments Pt able to perform sit to stand transfers SBA. Gait training with 5L of O2 with pt using RW SBA while therapist also pushes IV pole for 20 feet. Pt's legs start to become very shaky, asked pt if she is feeling ok and she states she is fine and not sure why legs are doing this. Called for nurse to assist us and chair is brought up behind pt for pt to sit. Nursing states this did not happen earlier for pt, but she has had meds and has not eaten breakfast yet. Total Therapy Minutes 13 Total Physical Therapy Units 1 Daily Note Summary Pt does well with exs and gait initially, but then becomes very unsteady with legs tremoring. Chair needed to be brought to pt for pt to sit down for safety. Unable to ambulate any further at this time due to this weakness/ unsteadiness in B LEs. Pt is disappointed as she is eager to get better.
[2023-11-15 11:51] LABS: Glucometer 174 mg/dL (74-106)
[2023-11-15] MEDS: INSULIN ASPART 300 UNIT/3 ML PEN SUBQ ×2 (12:01→21:36)
--- NOTE | 2023-11-15 13:36 | SWNOTE1 ---
SW spoke to pt about her going to [facility] if she needs rehab. SW explained to pt that even though she may be doing well with therapy, she may need rehab for respiratory issues. Pt did voice understanding, but voiced she would likely go home on oxygen. Pt is not discharging today. Pt is still on high flow oxygen. SW sent updated progress notes, vitals, therapy notes, med list, and nursing notes to [facility].
[2023-11-15 15:53] LABS: Glucometer 120 mg/dL (74-106)
[2023-11-15] MEDS: ALPRAZOLAM 1 MG TABLET 0.5 MG PO (20:39)
[2023-11-15] MEDS: METOPROLOL SUCCINATE 25 MG TAB.ER.24H PO (21:40)
[2023-11-15 21:41] LABS: Glucometer 159 mg/dL (74-106)
[2023-11-15] MEDS: ENOXAPARIN SODIUM 40 MG/0.4 ML SYRINGE SUBQ (22:05)
--- NOTE | 2023-11-15 23:42 | RESP.RT ---
refused bipap at this time
[2023-11-16] VITALS (44 sets, daily range): BP systolic 80–112; BP diastolic 40–60; PULSE 46–86; RESP 5–23; TEMP 36.4–37.1; O2SAT 87–100; BMI 23.6
[2023-11-16] MEDS: PIPERACILLIN SODIUM/TAZOBACTAM 3.375 GM in 0.9 % SODIUM CHLORIDE 50 ML IV (01:00)
[2023-11-16 04:42] LABS: Basophils Percent Auto 0.1 % (0.2-2.0); Eosinophils Absolute Auto 0.3 10^3/uL (0.0-0.7); Eosinophils Percent Auto 3.3 % (0.9-7.0); Hemoglobin 8.3 g/dL (12.0-16.0); Immature Granulocytes Abs Auto 0.08 10^3/uL (0.00-0.03); Lymphocytes Absolute Auto 1.9 10^3/uL (1.2-3.8); Lymphocytes Percent Auto 24.6 % (20.5-60.0); Mean Corpuscular HGB Conc 30.7 g/dL (29.9-35.2); Mean Corpuscular Hemoglobin 27.6 pg (26.7-34.0); Mean Corpuscular Volume 89.7 fL (81.0-99.0); Mean Platelet Volume 9.8 fL (9.5-13.5); Monocytes Absolute Auto 0.3 10^3/uL (0.3-0.8); Monocytes Percent Auto 3.9 % (1.7-12.0); Neutrophils Absolute Auto 5.2 10^3/uL (1.4-6.5); Neutrophils Percent Auto 67.1 % (43.0-75.0); Platelet Count 425 10^3/uL (150-450); Red Blood Count 3.01 10^6/uL (4.20-5.40); Red Cell Distribution Width 16.8 % (11.0-15.0); White Blood Count 7.8 10^3/uL (4.0-11.0)
[2023-11-16 05:08] LABS: Anion Gap 10.5; BUN Creatinine Ratio 7.6; Calcium 8.3 mg/dL (8.5-10.1); Carbon Dioxide 29.6 mmol/L (21.0-32.0); Chloride 106 mmol/L (98-107); Estimated GFR (African America >60 (>=60); Estimated GFR (Non-African Ame >60 (>=60); Glucose 103 mg/dL (74-106); Magnesium 1.8 mg/dL (1.8-2.4); Potassium 3.1 mmol/L (3.5-5.1); Sodium 143 mmol/L (136-145)
[2023-11-16] MEDS: MIDODRINE HCL 5 MG TABLET 10 MG PO ×2 (06:25→13:38)
[2023-11-16] MEDS: ALPRAZOLAM 1 MG TABLET 0.5 MG PO ×2 (06:30→21:25)
--- NOTE | 2023-11-16 08:29 | XR_ITS ---
The [address] [address] Patient Name: HONEY MONTES MRN: [id number] date: 1960 Sex: F Assigned Patient Location: ICU Current Patient Location: ICU Accession/Order Number: [id number] Exam Date: 11/16/2023 08:45 Report Date: 11/16/2023 09:21 At the request of: DESTINEY SOLIZ Procedure: XR chest 1V EXAMINATION: XR chest 1V HISTORY: shortness of breath COMPARISON: XR chest 11/15/2023 FINDINGS: LUNGS: Dense opacities within the left lung base obscuring the heart and diaphragm margins. VASCULATURE: No increased pulmonary vasculature. PLEURA: Moderate or greater left pleural effusion. CARDIAC: No cardiomegaly or cardiac silhouette abnormality. MEDIASTINUM: No visible mass or adenopathy. BONES: Minimally displaced lateral left ninth rib fracture; unchanged. OTHER: Negative. XR/XR chest 1V IMPRESSION: 1. Grossly stable complete opacification of left lung base suspected to be secondary to pleural effusion and dense atelectasis versus pneumonia. 2. Stable left ninth rib fracture. Electronically authenticated by: ORLANDO LYNN Date: 11/16/2023 09:21
--- NOTE | 2023-11-16 08:33 | PM.PN ---
Progress Note: Subjective Subjective Interval history: Patient overall doing well on BIPAP off and on. We discussed getting a different probe for her oxygen sats and the new one seems to be working much better. She is now down to 5L NC and looks and feels comfortable. We had long discussion with daughter at bedside the importance of going to rehab for a short stent so that she can get the PT she needs to feel better to go home. Her Chest X-ray is free of any further pneumonia. Still present is the left pleural effusion but improving. Her oxygen requirement is also improving. I am hopeful that with rehab she will continue to improve. She is amendable to going to the [facility]. Exam Narrative Exam Narrative: General: Patient is alert, and oriented to person, place and time, frail appearing Skin: multiple ecchymosis bilateral arms from lab draws, dry skin Head: atraumatic, acephalic Eyes: PERRLA, no nystagmus present, conjunctiva clear, no scleral icterus Heart: Normal rate and rhythm, no murmurs/rubs/gallops Lungs: no audible wheezes, crackles and diminished breath sounds all lung ibarra L>R Abdomen: Normal audible bowel sounds, no distension, No palpable masses, no organomegaly, no rebound/guarding/ or rigidity Musculoskeletal: no swelling bilateral lower extremities Neuro: CN II-X grossly intact Constitutional Vital Signs, click to edit/add: Last Vital Signs Temp 98.1 F 11/16/23 00:00 Pulse 55 L 11/16/23 08:00 Resp 18 11/16/23 05:00 BP 94/40 L 11/16/23 06:25 Pulse Ox 92 L 11/16/23 06:00 O2 Del Method BIPAP 11/16/23 03:50 O2 Flow Rate 6 11/15/23 19:58 FiO2 30 11/16/23 03:50 Progress Note: Objective Labs Labs: Short CBC 11/16/23 Range/Units 04:20 WBC 7.8 (4.0-11.0) 10^3/uL Hgb 8.3 L (12.0-16.0) g/dL Hct 27.0 L (36.0-48.0) % Plt Count 425 (150-450) 10^3/uL BMP 11/16/23 04:20 Sodium 143 Potassium 3.1 L Chloride 106 Carbon Dioxide 29.6 BUN 7.0 Creatinine 0.92 Glucose 103 Calcium 8.3 L Progress Note: A&P Assessment and Plan (1) Acute hypoxic respiratory failure: Assessment and Plan: Continue nebulizer treatments O PEP therapy. BIPAP 2 hours on and off while awake, chest X-ray showed slight improvement. down to 5 L NC. Improving slowly. Discussed the need for acute rehab as stated above. Pneumonia has resolved. Completed 5 days of Levaquin 750mg daily, 7 days of zosyn (2) Pleural effusion, left: Assessment and Plan: BIPAP helped, lasix 40mg IV daily, good amount of fluid output, monitor electrolytes. continue lasix 40mg IV daily. (3) Multiple rib fractures: Assessment and Plan: continue pain control but decrease sedative medications; off morphine on [place] 5 BID Qualifiers: Encounter type: subsequent encounter Fracture healing: with delayed healing Fracture type: closed Laterality: left Qualified Code(s): S22.42XG - Multiple fractures of ribs, left side, subsequent encounter for fracture with delayed healing (4) Hypokalemia: Assessment and Plan: increase klorcon 20meq TID (5) Diabetes: Assessment and Plan: continue sliding scale insulin, should improve off steroids Qualifiers: Diabetes mellitus complication status: without complication Diabetes mellitus senior care insulin use: without buttermaker use Diabetes mellitus type: type 2 Qualified Code(s): E11.9 - Type 2 diabetes mellitus without complications (6) Afib: Assessment and Plan: continue metoprolol for rate control and amiodarone, continue also aspirin and Plavix Qualifiers: Atrial fibrillation type: paroxysmal Qualified Code(s): I48.0 - Paroxysmal atrial fibrillation (7) CAD (coronary artery disease): Assessment and Plan: continue statin Qualifiers: Associated angina: without angina Coronary Disease-Associated Artery/Lesion type: unspecified vessel or lesion type [place] vs. transplanted heart: unspecified whether [place] or transplanted heart Qualified Code(s): I25.10 - Atherosclerotic heart disease of [place] coronary artery without angina pectoris (8) Hypomagnesemia: Assessment and Plan: monitor daily and replace Plan patient is full code Lovenox for DVT prophylaxis slow improvement but hopeful to go to Acute rehab facility possibly tomorrow
[2023-11-16] MEDS: ASPIRIN 81 MG TAB.CHEW PO (08:44)
[2023-11-16] MEDS: CITALOPRAM HYDROBROMIDE 20 MG TABLET PO ×2 (08:44→21:21)
[2023-11-16] MEDS: ATORVASTATIN CALCIUM 40 MG TABLET 80 MG PO (08:45)
[2023-11-16] MEDS: AMIODARONE HCL 200 MG TABLET PO (08:45)
[2023-11-16] MEDS: GABAPENTIN 300 MG CAPSULE 600 MG PO ×2 (08:45→21:21)
[2023-11-16] MEDS: CLOPIDOGREL BISULFATE 75 MG TABLET PO (08:45)
[2023-11-16] MEDS: POTASSIUM CHLORIDE 10 MEQ ER TABLET 20 MEQ PO ×3 (08:45→21:22)
[2023-11-16] MEDS: FUROSEMIDE 20 MG/2 ML VIAL IVP (08:46)
[2023-11-16] MEDS: GUAIFENESIN 600 MG TAB.ER.12H PO ×2 (08:46→21:22)
[2023-11-16] MEDS: FAMOTIDINE 20 MG TABLET 40 MG PO ×2 (08:46→21:21)
[2023-11-16] MEDS: HYDROCODONE/ACET 5-325 MG TABLET 1 TAB PO ×2 (08:49→21:22)
--- NOTE | 2023-11-16 11:16 | PT.DAILY ---
Physical Therapy Daily Note PT Daily Note/Assess Start: 11/10/23 09:14 Freq: Status: Active Protocol: Document 11/16/23 10:50 GELA (Rec: 11/16/23 11:15 GELA [id number]) Visit Not Completed Visit Not Completed Visit Not Completed Due to: Other Other Reason Visit Not Completed Went to check on patient, nursing in room with patient, nursing waved PT off and stated to come back later this PM to check on patient. Physical Therapy Daily Note/Assessment Time In/Time Out Time In 10:50 Time Out 10:50 GG. Functional Abilities and Goals-Complete for Swing Bed Patients Only [id number]. Self-Care [id number]. Mobility
[2023-11-16 11:34] LABS: Glucometer 138 mg/dL (74-106)
--- NOTE | 2023-11-16 11:36 | SWNOTE1 ---
SW spoke with pt and daughter in room. Pt was tearful and had a long conversation with doctor and heel caser in regards to going skilled at [facility]. Pt did voice she is nervous and worried about how long she will have to be there. SW spoke with pt and daughter for about 15 minutes in regards to SNF. SW re-assured her it would be beneficial and help her build strength physically and help with her respiratory issues as well. Pt does voice understanding and did voice she does feel like it will be beneficial, just concerned about length of time. Pt is agreeable at this time. [facility] already has a bed for her. No discharge today. SW to send updates to [facility].
--- NOTE | 2023-11-16 13:32 | CM.NOTE ---
Rounds made with Dr. Mccollum, no discharge today. Discussed in depth with pt and daughter need for skilled therapy and safety about discharging straight to home. Pt is still requiring 5L NC oxygen and very weak with transfers. Pt becomes very tearful about transition to skilled facility. Pt at the end of conversation is understanding of reason she will need to go skilled at discharge. Possible discharge tomorrow to [facility].
--- NOTE | 2023-11-16 15:26 | SWNOTE1 ---
Physician note, lab work, vitals, med list, therapy notes, nursing notes from today all sent to [facility] to update them on status of patient.
[2023-11-16 17:45] LABS: Glucometer 283 mg/dL (74-106)
[2023-11-16] MEDS: INSULIN ASPART 300 UNIT/3 ML PEN SUBQ ×2 (17:51→21:30)
[2023-11-16] MEDS: KETOROLAC TROMETHAMINE 30 MG/ML VIAL 15 MG IVP (20:03)
--- NOTE | 2023-11-16 20:33 | RESP.RT ---
Titrated to 3 lpm
[2023-11-16 21:30] LABS: Glucometer 204 mg/dL (74-106)
[2023-11-16] MEDS: ENOXAPARIN SODIUM 40 MG/0.4 ML SYRINGE SUBQ (23:10)
--- NOTE | 2023-11-16 23:43 | RESP.RT ---
Patient refused bipap for tonight
[2023-11-17] VITALS (21 sets, daily range): BP systolic 84–104; BP diastolic 43–70; PULSE 44–66; RESP 11–29; TEMP 36.6–36.7; O2SAT 80–100
[2023-11-17 04:34] LABS: Hematocrit 27.7 % (36.0-48.0); Hemoglobin 8.2 g/dL (12.0-16.0); Mean Corpuscular HGB Conc 29.6 g/dL (29.9-35.2); Mean Corpuscular Hemoglobin 27.2 pg (26.7-34.0); Mean Corpuscular Volume 91.7 fL (81.0-99.0); Mean Platelet Volume 9.8 fL (9.5-13.5); Platelet Count 443 10^3/uL (150-450); Red Blood Count 3.02 10^6/uL (4.20-5.40); Red Cell Distribution Width 16.8 % (11.0-15.0); White Blood Count 7.5 10^3/uL (4.0-11.0)
[2023-11-17 04:48] LABS: Anion Gap 10.4; BUN Creatinine Ratio 9.8; Calcium 8.3 mg/dL (8.5-10.1); Carbon Dioxide 28.5 mmol/L (21.0-32.0); Chloride 109 mmol/L (98-107); Estimated GFR (African America >60 (>=60); Estimated GFR (Non-African Ame 55 (>=60); Glucose 123 mg/dL (74-106); Potassium 3.9 mmol/L (3.5-5.1); Sodium 144 mmol/L (136-145)
[2023-11-17 04:59] LABS: Atypical Lymphocytes Abs Man 0.52; Eosinophils Absolute Manual 0.37 10^3/uL (0.00-0.70); Hypochromasia 3+; Monocytes Absolute Manual 0.37 10^3/uL (0.30-0.80); Poikilocytosis 3+; Segmented Neut Absolute Manual 4.42 10^3/uL (1.4-6.5)
[2023-11-17 05:00] LABS: Anisocytosis 3+; Hypersegmented Neutrophils 3+; Microcytosis 4+; Schistocytes 4+; Toxic Granulation 2+; Toxic Vacuolation 1+
--- NOTE | 2023-11-17 08:29 | XR_ITS ---
The [address] [address] Patient Name: HONEY MONTES MRN: [id number] date: 1960 Sex: F Assigned Patient Location: ICU Current Patient Location: ICU Accession/Order Number: [id number] Exam Date: 11/17/2023 08:40 Report Date: 11/17/2023 08:57 At the request of: DESTINEY SOLIZ Procedure: XR chest 1V EXAM: XR chest 1V HISTORY: pleural effusion COMPARISON: Chest radiograph 11/16/2023. TECHNIQUE: One view chest FINDINGS/IMPRESSION: Stable hazy opacity involving the left lung base with obscuration of left hemidiaphragm. Similar prominent interstitial markings seen throughout the remaining lungs. No pneumothorax. Cardiac silhouette is stable. The visualized upper abdomen is unremarkable. No acute osseous abnormality. Electronically authenticated by: JACK LIM Date: 11/17/2023 08:57
[2023-11-17] MEDS: HYDROCODONE/ACET 5-325 MG TABLET 1 TAB PO (08:30)
[2023-11-17] MEDS: POTASSIUM CHLORIDE 10 MEQ ER TABLET 20 MEQ PO (08:30)
[2023-11-17] MEDS: ATORVASTATIN CALCIUM 40 MG TABLET 80 MG PO (08:31)
[2023-11-17] MEDS: AMIODARONE HCL 200 MG TABLET PO (08:31)
[2023-11-17] MEDS: ASPIRIN 81 MG TAB.CHEW PO (08:31)
[2023-11-17] MEDS: GABAPENTIN 300 MG CAPSULE 600 MG PO (08:31)
[2023-11-17] MEDS: MIDODRINE HCL 5 MG TABLET 10 MG PO (08:31)
[2023-11-17] MEDS: CITALOPRAM HYDROBROMIDE 20 MG TABLET PO (08:31)
[2023-11-17] MEDS: CLOPIDOGREL BISULFATE 75 MG TABLET PO (08:31)
[2023-11-17] MEDS: GUAIFENESIN 600 MG TAB.ER.12H PO (08:32)
[2023-11-17] MEDS: FUROSEMIDE 20 MG/2 ML VIAL IVP (08:32)
[2023-11-17] MEDS: FAMOTIDINE 20 MG TABLET 40 MG PO (08:33)
[2023-11-17] MEDS: ALPRAZOLAM 0.5 MG TABLET PO (08:47)
--- NOTE | 2023-11-17 08:48 | PM.DS1 ---
DS: Providers Provider Date of admission: 11/09/23 00:25 Primary care physician: IAM OQUENDO Admitting clinician: Jhonny Concepcion Consults: 11/10/23 Occupational Therapy Eval and Treat Routine Reason for consultation: weakness Physical Therapy Eval and Treat Routine Reason for consultation: weakness 11/13/23 08:18 Occupational Therapy Eval and Treat Routine Reason for consultation: weakness, rib fractures Has provider been notified: No Physical Therapy Eval and Treat Routine Reason for consultation: weakness Has provider been notified: No 11/14/23 12:12 Consult to Cardiology Routine Reason for consultation: persistant Pleural effusions, not responding to lasix Has provider been notified: No Discharging clinician: Yenni Mccollum DS: Diagnosis Discharge Diagnosis (1) Acute hypoxic respiratory failure: (2) Pleural effusion, left: (3) Multiple rib fractures: Qualifiers: Encounter type: subsequent encounter Fracture healing: with delayed healing Fracture type: closed Laterality: left Qualified Code(s): S22.42XG - Multiple fractures of ribs, left side, subsequent encounter for fracture with delayed healing (4) Hypokalemia: (5) Diabetes: Qualifiers: Diabetes mellitus complication status: without complication Diabetes mellitus long term acute care registered nurse insulin use: without retirement use Diabetes mellitus type: type 2 Qualified Code(s): E11.9 - Type 2 diabetes mellitus without complications (6) Afib: Qualifiers: Atrial fibrillation type: paroxysmal Qualified Code(s): I48.0 - Paroxysmal atrial fibrillation (7) CAD (coronary artery disease): Qualifiers: Associated angina: without angina Coronary Disease-Associated Artery/Lesion type: unspecified vessel or lesion type [place] vs. transplanted heart: unspecified whether [place] or transplanted heart Qualified Code(s): I25.10 - Atherosclerotic heart disease of [place] coronary artery without angina pectoris (8) Hypomagnesemia: DS: Summary Hospital Course Hospital Course: This is a 63-year-old female patient with a past medical history as outlined below including hx of breast, stomach, and neuroendocrine carcinomas, a-fib, CAD s/p [place] x 2 and stents x 5, chronic hypotension, DM2, hypothyroidism, and a recent admission to this facility with pneumonia and right rib fractures, discharged on 10/27/2023; who presented confusion and lethargic and the patient reporting increasing shortness of breath. Workup in the ED revealed hypotension (78/53), fever (100.1, 100.7), and hypoxia (86% on RA). Labs revealed leukocytosis (16.3), hypokalemia (3.1), and hypomagnesemia (1.5). CXR revealed LLL pneumonia, pulmonary vascular congestion, moderate L pleural effusion. Oxygen supplementation had to be increased to Vapotherm (40 L/70% FiO2) in order to keep her O2 sats above 90%. She was admitted to the hospitalist service overnight as an inpatient for pneumonia. Continued nebulizer treatments OPEP therapy. BIPAP 2 hours on and off while awake, chest X-ray showed slight improvement. down to 5 L NC. Improving slowly. Discussed the need for acute rehab as stated above. Pneumonia has resolved. Completed 5 days of Levaquin 750mg daily, 7 days of zosyn. Cards consulted and recommended diuresis for persistant pleural effusion and opinion on diuresis. They also recommended BIPAP. Patient did well on Lasix 40mg IV daily x 3 days and will be transitioned to Lasix 20mg PO daily. She continued to have potassium requirement needs and is stable on Klorcon 20meq BID of which she will be discharged on. She will need a bmp in a week to assess status at that time. For her rib fractures, she was getting a substantial amount of narcotics. I have weaned her from the MS contin to twice daily [place] 5/325. She is to continue the Gabapentin. I have also decreased her Xanax from home dose of 1mg BID to 0.5mg BID. She was getting highly sedated on her home medications which plays into the hypoventilation. She also received Toradol for pain. At the time of discharge her pain is controlled on the discharging meds. She was on sliding scale insulin due to steroids but has been off these for several days, she can resume metformin. Her A-fib has been well controlled. After a long hospital stay she was amendable to inpatient rehab which I think is the best decision for her. She is still requiring about 3L NC oxygen. She needs physical therapy to stay out of the hospital. She will be discharged to Acute rehab facility in fair condition. She is to return to the hospital with any worsening symptoms. follow up with facility doctor, bmp 1 week. and pcp 1 week after rehab. Status at Discharge Functional status at discharge: uses cane/walker Overall status at discharge: patient is progressing back to baseline Time Spent with Patient Time attestation: Total time spent providing and/or coordinating discharge services: Time spent: greater than 30 minutes Exam Narrative Exam Narrative: General: Patient is alert, and oriented to person, place and time, frail appearing Skin: multiple ecchymosis bilateral arms Head: atraumatic, acephalic Eyes: PERRLA, no nystagmus present, conjunctiva clear, no scleral icterus Heart: Normal rate and rhythm, no murmurs/rubs/gallops Lungs: no audible wheezes, crackles and diminished breath sounds on left Abdomen: Normal audible bowel sounds, no distension, No palpable masses, no organomegaly, no rebound/guarding/ or rigidity Musculoskeletal: no swelling bilateral lower extremities Neuro: CN II-X grossly intact Constitutional Vital Signs, click to edit/add: Last Vital Signs Temp 98 F 11/17/23 04:00 Pulse 48 L 11/17/23 05:42 Resp 14 11/17/23 05:00 BP 99/52 11/17/23 04:29 Pulse Ox 96 11/17/23 05:42 O2 Del Method Nasal Cannula 11/17/23 05:29 O2 Flow Rate 1 11/17/23 05:29 FiO2 30 11/16/23 20:00 DS: Data Data Completed and Pending Labs on day of discharge: Labs from last 24 hours 11/17/23 11/16/23 11/16/23 04:08 21:27 17:44 WBC 7.5 RBC 3.02 L Hgb 8.2 L Hct 27.7 L MCV 91.7 MCH 27.2 MCHC 29.6 L RDW 16.8 H Plt Count 443 MPV 9.8 Seg Neuts % (Manual) 59.0 Lymphocytes % (Manual) 24.0 Atypical Lymphs % (Man) 7.0 Monocytes % (Manual) 5.0 Eosinophils % (Manual) 5.0 Basophils % (Manual) 0.0 L Neutrophils # (Manual) 4.42 Lymphocytes # (Manual) 1.80 Abs Atypical Lymphs Man 0.52 Monocytes # (Manual) 0.37 Eosinophils # (Manual) 0.37 Basophils # (Manual) 0.00 Hypersegmented Neuts 3+ Toxic Granulation 2+ Toxic Vacuolation 1+ Hypochromasia 3+ Poikilocytosis 3+ Anisocytosis 3+ Microcytosis 4+ Schistocytes 4+ Sodium 144 Potassium 3.9 Chloride 109 H Carbon Dioxide 28.5 Anion Gap 10.4 BUN 10.0 Creatinine 1.02 Est GFR ( Amer) >60 Est GFR (Non-Af Amer) 55 L BUN/Creatinine Ratio 9.8 Glucose 123 H Calcium 8.3 L Magnesium 2.0 POC Glucose 204 H 283 H 11/16/23 11:23 WBC RBC Hgb Hct MCV MCH MCHC RDW Plt Count MPV Seg Neuts % (Manual) Lymphocytes % (Manual) Atypical Lymphs % (Man) Monocytes % (Manual) Eosinophils % (Manual) Basophils % (Manual) Neutrophils # (Manual) Lymphocytes # (Manual) Abs Atypical Lymphs Man Monocytes # (Manual) Eosinophils # (Manual) Basophils # (Manual) Hypersegmented Neuts Toxic Granulation Toxic Vacuolation Hypochromasia Poikilocytosis Anisocytosis Microcytosis Schistocytes Sodium Potassium Chloride Carbon Dioxide Anion Gap BUN Creatinine Est GFR ( Amer) Est GFR (Non-Af Amer) BUN/Creatinine Ratio Glucose Calcium Magnesium POC Glucose 138 H Discharge Plan Discharge Disposition: [facility] Inpatient Rehab Fac Condition: Fair Discharge Medications: New alprazolam 1 mg Tablet 0.5 mg PO BID PRN (Reason: anxiety) 2 Days Qty: 4 0RF hydrocodone-acetaminophen 5-325 mg Tablet 1 tab PO Q12H 2 Days Qty: 4 0RF potassium chloride 10 mEq Tablet,Er Particles/Crystals 20 meq PO BID 30 Days Qty: 120 0RF docusate sodium 100 mg capsule 200 mg PO DAILY 30 Days Qty: 60 0RF Continued clopidogrel 75 mg tablet 75 mg PO DAILY midodrine 10 mg tablet 10 mg PO TID nitroglycerin 0.4 mg tablet, sublingual 0.4 mg sublingual Q5M PRN (Reason: chest pain) pantoprazole 40 mg tablet,delayed release (DR/EC) 40 mg PO DAILY atorvastatin 80 mg tablet 80 mg PO DAILY metformin 500 mg tablet 500 mg PO BID aspirin 81 mg tablet,chewable 81 mg PO DAILY citalopram [Celexa] 20 mg tablet 20 mg PO BID metoprolol succinate 25 mg tablet extended release 24 hr 25 mg PO .QHS amiodarone 200 mg tablet 200 mg PO DAILY furosemide 20 mg tablet 20 mg PO DAILY gabapentin 600 mg tablet 600 mg PO BID 2 Days Qty: 4 0RF Discontinued alprazolam 1 mg tablet 1 mg PO TID PRN (Reason: anxiety) oxycodone-acetaminophen 7.5-325 mg tablet 1 tab PO Q8H PRN (Reason: pain) potassium chloride 10 mEq capsule, extended release 10 meq PO BID metformin 500 mg Tablet 500 mg PO BIDWM Qty: 60 11RF morphine 20 mg capsule,extend.release pellets 20 mg PO Q12H zolpidem [Ambien] 10 mg tablet 10 mg PO .qhs PRN (Reason: sleep) Movantik 25 mg tablet 25 mg PO DAILY Rx Instructions: must be taken on empty stomach; no food 1 hr after or 2-3 hrs before dose Activity Restrictions/Additional Instructions: Wear oxygen at all times, 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 Forms: Portal Instructions Follow Up Appointments: follow up with PCP 5-7 days after rehab Discharge location: [facility], Should have bmp checked in 1 week.
[2023-11-17 08:55] LABS: Glucometer 167 mg/dL (74-106)
[2023-11-17] MEDS: INSULIN ASPART 300 UNIT/3 ML PEN SUBQ (08:58)
--- NOTE | 2023-11-17 09:40 | SWNOTE1 ---
SW received message from case management and pt is able to be dc today. SW checking with [facility] to see if they have transport, waiting to hear back.
[2023-11-17] MEDS: KETOROLAC TROMETHAMINE 30 MG/ML VIAL 15 MG IVP (10:28)
--- NOTE | 2023-11-17 11:28 | CM.NOTE ---
Rounds made with Dr. Mccollum. Plan for discharge to [facility] today. Orly ruddable.
--- NOTE | 2023-11-17 12:34 | SWNOTE1 ---
Pt is discharging to [facility] today for rehab. SW sent over dc orders to [facility] and set up trips for 12:45-1:15.
--- NOTE | 2023-11-17 12:38 | SWNOTE1 ---
SW completed HENS and put together packet and gave to ICU nursing. [facility], nursing, and pt aware of dc time.
== END 2023-11-17 12:47 | DRG 871 ==
LOC: ER 22:44 → ICU 11-09 00:55
PROVIDERS: Family Medicine; Internal Medicine; Nurse Practitioner; Registered Nurse; Admitting Provider Family Medicine; Emergency Provider Emergency Medicine; PCP Family Medicine; Visit Provider Family Medicine
DX: A41.9 Sepsis, unspecified organism (principal); G93.41 Metabolic encephalopathy; J18.9 Pneumonia, unspecified organism; J96.01 Acute respiratory failure with hypoxia; J90 Pleural effusion, not elsewhere classified; E03.9 Hypothyroidism, unspecified; E11.9 Type 2 diabetes mellitus without complications; E78.5 Hyperlipidemia, unspecified; I25.10 Atherosclerotic heart disease of native coronary artery without angina pectoris; I48.0 Paroxysmal atrial fibrillation; I95.89 Other hypotension; K21.9 Gastro-esophageal reflux disease without esophagitis; E87.6 Hypokalemia; E83.42 Hypomagnesemia; F32.A Depression, unspecified; F17.200 Nicotine dependence, unspecified, uncomplicated; S22.42XG Multiple fractures of ribs, left side, subsequent encounter for fracture with delayed healing; I25.2 Old myocardial infarction; Z79.84 Long term (current) use of oral hypoglycemic drugs; Z79.82 Long term (current) use of aspirin; Z79.02 Long term (current) use of antithrombotics/antiplatelets; Z79.899 Other long term (current) drug therapy; Z95.5 Presence of coronary angioplasty implant and graft; Z85.028 Personal history of other malignant neoplasm of stomach; Z85.3 Personal history of malignant neoplasm of breast; Z90.710 Acquired absence of both cervix and uterus; Z98.84 Bariatric surgery status; Z20.822 Contact with and (suspected) exposure to COVID-19; Z91.81 History of falling; Z83.3 Family history of diabetes mellitus; Z82.5 Family history of asthma and other chronic lower respiratory diseases; Z80.9 Family history of malignant neoplasm, unspecified
CPT/HCPCS: 0202U; 36410; 36415; 36592; 36600; 71045; 71275; 80048; 80053; 81001; 82800; 82805; 82948; 83605; 83735; 83880; 84100; 84145; 84484; 85007; 85025; 85027; 87040; 87070; 87086; 87804; 87811; 93005; 93306; 94660; 94667; 94668; 94761; 94799; 96361; 96365; 96366; 96367; 96368; 96372; 96375; 96376; 97110; 97162; 97165; 97530; 97535; 99285; C1887; J0456; J0696; J1650; J1885; J1940; J2270; J2543; J2930; J3475; Q9967